=== PATIENT | female | born 1950 | race Caucasian/White ===

== ENCOUNTER → 2017-05-19 | Outpatient (CLI) | payer MEDICARE, BC ==
--- NOTE | 2017-05-20 08:28 | Diagnostic Imaging Report ---
Bilateral screening mammogram 2D views with tomosynthesis The current study was also evaluated with a Computer Aided Detection (CAD) system. INDICATION: Screening. No current complaints stated on the questionnaire. COMPARISON: 03/09/16 FINDINGS: The breasts are composed of scattered fibroglandular densities. There are scattered benign-appearing calcifications Allowing for technique and positional differences, no suspicious change is seen. IMPRESSION: No significant change. ACR BI-RADS Category 2: Benign findings. Result letter will be mailed to the patient. Note: At least 10% of breast cancer is not imaged by mammography. Dictated by: Dictated on workstation # [id number]
== END ==
LOC: RAD 09:51
PROVIDERS: ATTEND Nurse Practitioner Family
DX: Z12.31 Encounter for screening mammogram for malignant neoplasm of breast (principal)
CPT/HCPCS: 77067

== ENCOUNTER → 2018-08-14 | Outpatient (CLI) | payer MEDICARE, BC ==
--- NOTE | 2018-08-14 12:12 | Diagnostic Imaging Report ---
INDICATION: Routine screening. COMPARISON: Comparison is made with prior mammograms from 05/19/2017 and 03/09/2016. TECHNIQUE: 2D and 3D bilateral screening mammography was performed with computer-aided detection (CAD) system. FINDINGS: Both breasts are heterogeneously dense, limiting the sensitivity of mammography. Benign-appearing calcifications appear stable bilaterally. No dominant mass or malignant appearing microcalcifications are seen. The axillae are unremarkable. IMPRESSION: No mammographic features suspicious for malignancy are identified. ACR BI-RADS Category 2: Benign findings. Result letter will be mailed to the patient. Note: At least 10% of breast cancer is not imaged by mammography. Dictated by: Dictated on workstation # [id number]
== END ==
LOC: RAD 09:03
PROVIDERS: ATTEND Nurse Practitioner Family
DX: Z12.31 Encounter for screening mammogram for malignant neoplasm of breast (principal)
CPT/HCPCS: 77067

== ENCOUNTER → 2018-12-19 | Outpatient (CLI) | payer MEDICARE, BC ==
[2018-12-19 12:58] LABS: BASOPHILS % (AUTO) 0 % (0-10); EOSINOPHILS # (AUTO) 0.1 10^3/uL (0.0-0.3); EOSINOPHILS % (AUTO) 1 % (0-10); HEMATOCRIT 48 % (35-52); HEMOGLOBIN 16.2 G/DL (11.5-16.0); LYMPHOCYTES # (AUTO) 3.5 X 10^3 (1.0-4.0); LYMPHOCYTES % (AUTO) 35 % (12-44); MEAN CORPUSCULAR HEMOGLOBIN 28 PG (25-34); MEAN CORPUSCULAR HGB CONC 34 G/DL (32-36); MEAN CORPUSCULAR VOLUME 83 FL (80-99); MONOCYTES # (AUTO) 0.9 X 10^3 (0.0-1.0); MONOCYTES % (AUTO) 9 % (0-12); NEUTROPHILS # (AUTO) 5.5 X 10^3 (1.8-7.8); NEUTROPHILS % (AUTO) 55 % (42-75); PLATELET COUNT 296 10^3/uL (130-400)
[2018-12-19 13:16] LABS: ALBUMIN 4.4 GM/DL (3.2-4.5); BILIRUBIN,TOTAL 0.7 MG/DL (0.1-1.0); CALCIUM 10.4 MG/DL (8.5-10.1); CREATININE SERUM 1.04 MG/DL (0.60-1.30); TOTAL PROTEIN 7.7 GM/DL (6.4-8.2)
[2018-12-19 13:37] LABS: FREE T4 (FREE THYROXINE) 1.53 NG/DL (0.70-1.48)
== END ==
LOC: CARD 12:24
PROVIDERS: ATTEND Nurse Practitioner Family
DX: I48.91 Unspecified atrial fibrillation (principal)
CPT/HCPCS: 36415; 80053; 84439; 84443; 85025; 93005

== ENCOUNTER → 2019-01-02 | Outpatient (CLI) | payer MEDICARE, BC | LOC: CARD 10:27 | PROVIDERS: ATTEND Nurse Practitioner Family | DX: I48.91 Unspecified atrial fibrillation (principal) | CPT/HCPCS: 93306 ==

== ENCOUNTER → 2019-01-09 | Outpatient (CLI) | payer MEDICARE, BC | LOC: CARD 12:04 | PROVIDERS: ATTEND Internal Medicine Cardiovascular Disease | DX: I48.2 Chronic atrial fibrillation (principal); E78.2 Mixed hyperlipidemia; E78.1 Pure hyperglyceridemia; R00.2 Palpitations; R42 Dizziness and giddiness | CPT/HCPCS: 93225; 93226 ==

== ENCOUNTER → 2019-02-20 | Outpatient (CLI) | payer MEDICARE, BC ==
[2019-02-20 11:37] LABS: ALANINE AMINOTRANSFERASE 18 U/L (0-55); ALBUMIN 4.4 GM/DL (3.2-4.5); ALKALINE PHOSPHATASE 84 U/L (40-136); BILIRUBIN,TOTAL 0.4 MG/DL (0.1-1.0); BUN/CREATININE RATIO 22; CALCIUM 10.4 MG/DL (8.5-10.1); CARBON DIOXIDE 25 MMOL/L (21-32); CHLORIDE 105 MMOL/L (98-107); CREATINE KINASE 79 U/L (29-168); CREATININE SERUM 0.96 MG/DL (0.60-1.30); GFR ESTIMATED 57; GLUCOSE 93 MG/DL (70-105); POTASSIUM 4.3 MMOL/L (3.6-5.0); SODIUM 139 MMOL/L (135-145); TOTAL PROTEIN 7.4 GM/DL (6.4-8.2)
== END ==
LOC: CARD 10:57
PROVIDERS: ATTEND Nurse Practitioner Family
DX: M79.602 Pain in left arm (principal); I48.91 Unspecified atrial fibrillation
CPT/HCPCS: 36415; 80053; 82550; 84484; 93005

== ENCOUNTER → 2019-03-28 | Outpatient (CLI) | payer MEDICARE, BC ==
[~2019-03-28] VITALS: Ht 162.6 cm; Wt 84.8 kg
[~2019-03-28] MED LIST: CATHETER FLUSH 10 ML SYR IV PRN
--- NOTE | 2019-03-28 14:48 | STRESS TEST ---
DATE OF SERVICE: 03/28/2019 EXERCISE MYOVIEW STRESS TEST REPORT REFERRING PHYSICIAN: Dr. Bermudez. INDICATION: Atrial fibrillation. Baseline heart rate is 48. Baseline blood pressure is 139/69. Baseline EKG is sinus rhythm with no ischemic changes. In summary, the patient was injected with 10.58 mCi of technetium-99 Myoview and the resting images were obtained. Then, the patient started exercising with a baseline heart rate, blood pressure and EKG mentioned above. The patient was able to exercise for 4 minutes and 45 seconds on standard Kin protocol. With peak exercise level, EKG was showing nondiagnostic changes. During recovery, heart rate and blood pressure returned to baseline. With peak stress level, blood pressure was 188/95, the patient was injected with 30.2 mCi of technetium-99 Myoview. The resting and stress images were reviewed and compared in the short axis, horizontal long axis, and vertical long axis views. Review of the images showed breast attenuation affecting the quality of the images. There is decreased uptake involving the mid to apical anterior wall and true apex with mild reversibility. SSS is 6, SDS 6, TID value 1.04. On the gated images, the left ventricle appeared to be normal size with normal contractility. Calculated ejection fraction 71%. CONCLUSION: 1. Fair exercise tolerance, a total of 4 minutes 45 seconds on standard Kin protocol, total of 6.6 METS achieving 90% of maximum expected heart rate. 2. Nondiagnostic EKG changes with exercise returned to baseline during recovery. 3. Mild hypertensive response to exercise returned to baseline during recovery. 4. Breast attenuation with mild ischemia involving the mid to apical anterior wall and true apex. 5. Normal left ventricular size with normal contractility. Calculated ejection fraction is 71%. Job ID: [id number] DocumentID: [id number] Dictated Date: 03/28/2019 14:28:20 Sap Bw Bi Developer Date: 03/28/2019 14:47:45 Dictated By: BERNARDA RODRIGUEZ MD
== END ==
LOC: CARD 07:05
PROVIDERS: ATTEND Internal Medicine Cardiovascular Disease
DX: E78.1 Pure hyperglyceridemia (principal); E78.2 Mixed hyperlipidemia; R00.2 Palpitations
CPT/HCPCS: 78452; 93017

== ENCOUNTER 2019-04-04 06:40 | Day surgery (SDC) | payer MEDICARE, BC ==
[~2019-04-04] VITALS: Ht 162.6 cm; Wt 84.8 kg
[2019-04-04] VITALS (15 sets, daily range): BP systolic 110–140; BP diastolic 45–102
[2019-04-04] MEDS ORDERED: LIDOCAINE 1% INJ 20 ML 20 ML VIAL ONE (06:43)
[2019-04-04] MEDS ORDERED: NS IV 1000 ML 1,000 ML ONE (06:43)
[2019-04-04] MEDS ORDERED: HEParin (CATH LAB) 2,000 ML IV ONE (06:43)
[2019-04-04] MEDS ORDERED: NS IV 1000 ML 1,000 ML IV SCH ×2 (06:45)
--- OUTSIDE RECORDS SUMMARY | 2019-04-04 06:46 | XMS REPORT | CCD ---
Author Author Delmis Her Organization Ria Bermudez MD, [facility] Address [address] [place] [address] Phone Care Team Providers Care Burrito Maker Name Role Phone PP Unavailable CCM Unavailable Summary Purpose Interface Exchange Insurance Providers Payer name Policy type / Coverage type Covered green party ID Effective Begin Date Effective End Date WPS Medicare Part B Medicare Part B [id number] Unknown [facility] Medicare Part B [id number] Unknown Family history Son Diagnosis Age At Onset Hypertension Unknown Diabetes mellitus Type 2 Unknown Hyperlipidemia Unknown Brother Diagnosis Age At Onset Hypertension Unknown Hyperlipidemia Unknown Mother Diagnosis Age At Onset Heart Attack Unknown Hyperlipidemia Unknown Hypertension Unknown Depression Unknown Father Diagnosis Age At Onset Skin cancer Unknown Hyperlipidemia Unknown Arthritis Unknown Hypertension Unknown Social History Social History Element Codes Description Effective Dates Marital status Unknown 03/17/2015 Marital status Unknown 03/17/2015 Number of children Unknown 1 03/17/2015 Number of children Unknown 1 03/17/2015 Employment Unknown Retired 03/17/2015 Employment Unknown Retired 03/17/[address]: 114437925 Never smoker 03/17/[address]: 370473998 Never smoker 03/17/2015 Allergies, Adverse Reactions, Alerts Substance Reaction Codes Entered Date Inactivated Date Status * NO KNOWN FOOD ALLERGIES Unknown 03/17/2015 No Inactive Date Active ciprofloxacin RxNorm: 07434 03/17/2015 No Inactive Date Active Erythromycin RxNorm: 4053 03/17/2015 No Inactive Date Active Penicillin Unknown 03/17/2015 No Inactive Date Active [id number] REDUCTASE INHIBITORS myalgias, Unknown 03/16/2016 No Inactive Date Active SULFA(SULFONAMIDE ANTIBIOTICS) Unknown 03/17/2015 No Inactive Date Active Past Medical History Illness Codes Condition Status Onset Date Resolved Date Pain in left arm ICD-9: 729.5 ICD-10: M79.602 Active 02/20/2019 Unknown Essential (primary) hypertension ICD-9: 401.1 ICD-10: I10 Active 01/27/2017 Unknown Paroxysmal atrial fibrillation ICD-9: 427.31 ICD-10: I48.0 Active 12/19/2018 Unknown Type 2 diabetes mellitus without complications ICD-9: 250.00 ICD-10: E11.9 Active 03/16/2015 Unknown Hypothyroidism, unspecified ICD-9: 244.9 ICD-10: E03.9 Active 08/04/2017 Unknown Sciatica Unknown Active 10/26/2018 Unknown Lumbago with sciatica, right side ICD-9: 724.3 ICD-10: M54.41 Active 10/26/2018 Unknown Mixed hyperlipidemia ICD- 9: 272.2 ICD-10: E78.2 Active 07/14/2016 Unknown Type 2 diabetes mellitus with diabetic polyneuropathy ICD-9: 250.60 ICD-10: E11.42 Active 05/05/2017 Unknown Encounter for screening mammogram for malignant neoplasm of breast ICD-9: V76.12 ICD-10: Z12.31 Active 02/19/2016 Unknown Encounter for immunization ICD-9: V04.81 ICD-10: Z23 Active 07/14/2016 Unknown Vitamin D deficiency, unspecified ICD-9: 268.9 ICD-10: E55.9 Active 09/14/2015 Unknown Hypothryroidism Unknown Active 08/04/2017 Unknown Diverticulitis of large intestine without perforation or abscess without bleeding ICD-9: 562.11 ICD-10: K57.32 Active 07/19/2017 Unknown Allergic rhinitis due to pollen ICD-9: 477.0 ICD-10: J30.1 Active 01/27/2017 Unknown Essential (primary) hypertension ICD-9: 401.9 ICD-10: I10 Active 03/16/2015 Unknown Polyneuropathy, unspecified ICD-9: 356.9 ICD-10: G62.9 Active 03/16/2015 Unknown Diabetes Unknown Active 03/17/2015 Unknown Hypertension Unknown Active 03/17/2015 Unknown Diabetes mellitus type 2, controlled ICD-9: 250.00 Active 03/16/2015 Unknown ESSENTIAL HYPERTENSION ICD-9: 401.9 Active 03/16/2015 Unknown Peripheral neuropathy ICD- 9: 356.9 Active 03/16/2015 Unknown Problems Condition Codes Effective Dates Condition Status Pain in left arm ICD-9: 729.5 ICD-10: M79.602 02/20/2019 Active Essential (primary) hypertension ICD-9: 401.1 ICD-10: I10 01/27/2017 Active Paroxysmal atrial fibrillation ICD-9: 427.31 ICD-10: I48.0 12/19/2018 Active Type 2 diabetes mellitus without complications ICD-9: 250.00 ICD-10: E11.9 03/16/2015 Active Hypothyroidism, unspecified ICD-9: 244.9 ICD-10: E03.9 08/04/2017 Active Sciatica Unknown 10/26/2018 Active Lumbago with sciatica, right side ICD-9: 724.3 ICD-10: M54.41 10/26/2018 Active Mixed hyperlipidemia ICD- 9: 272.2 ICD-10: E78.2 07/14/2016 Active Type 2 diabetes mellitus with diabetic polyneuropathy ICD-9: 250.60 ICD-10: E11.42 05/05/2017 Active Encounter for screening mammogram for malignant neoplasm of breast ICD-9: V76.12 ICD-10: Z12.31 02/19/2016 Active Encounter for immunization ICD-9: V04.81 ICD-10: Z23 07/14/2016 Active Vitamin D deficiency, unspecified ICD-9: 268.9 ICD-10: E55.9 09/14/2015 Active Hypothryroidism Unknown 08/04/2017 Active Diverticulitis of large intestine without perforation or abscess without bleeding ICD-9: 562.11 ICD-10: K57.32 07/19/2017 Active Allergic rhinitis due to pollen ICD-9: 477.0 ICD-10: J30.1 01/27/2017 Active Essential (primary) hypertension ICD-9: 401.9 ICD-10: I10 03/16/2015 Active Polyneuropathy, unspecified ICD-9: 356.9 ICD-10: G62.9 03/16/2015 Active Diabetes Unknown 03/17/2015 Active Hypertension Unknown 03/17/2015 Active Diabetes mellitus type 2, controlled ICD-9: 250.00 03/16/2015 Active ESSENTIAL HYPERTENSION ICD-9: 401.9 03/16/2015 Active Peripheral neuropathy ICD- 9: 356.9 03/16/2015 Active Medications Medication Codes Instructions Start Date Stop Date Status Fill Instructions enalapril maleate 5 mg tablet RxNorm: 017899 TAKE ONE TABLET BY MOUTH DAILY 01/25/2019 01/19/2020 Active levothyroxine 100 mcg tablet RxNorm: 979320 TAKE ONE TABLET BY MOUTH EVERY OTHER DAY ALTERNATE WITH 112 MCG TABLET 01/16/2019 06/14/2019 Active Zetia 10 mg tablet RxNorm: 607417 1/2 Tablet(s) PO daily 12/19/2018 No Stop Date Active Cardizem CD 120 mg capsule,extended release RxNorm: 430767 1 Capsule(s) PO daily 12/19/2018 06/16/2019 Active Eliquis 5 mg tablet RxNorm: 9575003 1 Tablet(s) PO BID 12/19/2018 No Stop Date Active gabapentin 100 mg capsule RxNorm: 065012 TAKE ONE CAPSULE BY MOUTH EVERY NIGHT AT BEDTIME 12/11/2018 02/08/2019 Inactive levothyroxine 112 mcg tablet RxNorm: 040871 TAKE ONE TABLET BY MOUTH EVERY OTHER DAY ALTERNATE WITH 100MCG TABLET 12/07/2018 03/06/2019 Active Zetia 10 mg tablet RxNorm: 360788 1 Tablet(s) PO daily 10/26/2018 12/18/2018 Inactive Zetia 10 mg tablet RxNorm: 606124 1/2 Tablet(s) PO daily 07/20/2018 10/25/2018 Inactive indapamide 1.25 mg tablet RxNorm: 956080 Tablet(s) TAKE ONE TABLET BY MOUTH DAILY 07/19/2018 07/13/2019 Active levothyroxine 112 mcg tablet RxNorm: 571220 TAKE ONE TABLET BY MOUTH EVERY OTHER DAY ALTERNATE WITH 100MCG TABLET 07/19/2018 11/15/2018 Inactive gabapentin 100 mg capsule RxNorm: 767333 TAKE ONE CAPSULE BY MOUTH EVERY NIGHT AT BEDTIME 06/05/2018 09/02/2018 Inactive Zetia 10 mg tablet RxNorm: 365362 1 Tablet(s) PO daily 05/11/2018 07/19/2018 Inactive Zetia 10 mg tablet RxNorm: 175669 1 Tablet(s) PO daily 05/11/2018 05/10/2018 Inactive indapamide 1.25 mg tablet RxNorm: 883095 TAKE ONE TABLET BY MOUTH DAILY 04/05/2018 07/18/2018 Inactive enalapril maleate 5 mg tablet RxNorm: 593745 TAKE ONE TABLET BY MOUTH DAILY 04/05/2018 12/30/2018 Inactive levothyroxine 112 mcg tablet RxNorm: 194038 1 Tablet(s) PO every other day . ALTERNATE WITH 100 MCG TABLET. 01/24/2018 05/23/2018 Inactive Crestor 10 mg tablet RxNorm: 400530 1 Tablet(s) PO QHS 01/24/2018 04/13/2018 Inactive levothyroxine 100 mcg tablet RxNorm: 317876 Tablet(s) TAKE ONE TABLET BY MOUTH EVERY OTHER DAY. ALTERNATE WITH 112 MCG TABLET. 01/24/2018 05/23/2018 Inactive Crestor 10 mg tablet RxNorm: 721729 1 Tablet(s) PO QHS 01/24/2018 01/23/2018 Inactive gabapentin 100 mg capsule RxNorm: 228772 TAKE ONE CAPSULE BY MOUTH EVERY NIGHT AT BEDTIME 01/05/2018 06/04/2018 Inactive indapamide 1.25 mg tablet RxNorm: 471393 TAKE ONE TABLET BY MOUTH DAILY 01/05/2018 04/04/2018 Inactive Zocor 20 mg tablet RxNorm: 985369 TAKE ONE TABLET BY MOUTH DAILY 12/02/2017 01/11/2018 Inactive Phenergan-Codeine 6.25 mg-10 mg/5 mL syrup RxNorm: 852927 5-10 Milliliter(s) PO Q6 as needed cough 11/09/2017 No Stop Date Active Tamiflu 75 mg capsule RxNorm: 909437 1 Capsule(s) PO BID 11/09/2017 11/13/2017 Inactive Tamiflu 75 mg capsule RxNorm: 287910 1 Capsule(s) PO BID 11/09/2017 11/08/2017 Inactive levothyroxine 100 mcg tablet RxNorm: 447496 TAKE ONE TABLET BY MOUTH DAILY 10/28/2017 01/23/2018 Inactive indapamide 1.25 mg tablet RxNorm: 391634 TAKE ONE TABLET BY MOUTH DAILY 09/09/2017 01/04/2018 Inactive levothyroxine 100 mcg tablet RxNorm: 631821 1 Tablet(s) PO daily TAKE ONE TABLET BY MOUTH DAILY 08/04/2017 10/27/2017 Inactive Flagyl 500 mg tablet RxNorm: 991855 1 Tablet(s) PO TID 07/19/2017 07/28/2017 Inactive enalapril maleate 5 mg tablet RxNorm: 805444 TAKE ONE TABLET BY MOUTH DAILY 06/30/2017 12/26/2017 Inactive indapamide 1.25 mg tablet RxNorm: 010036 TAKE ONE TABLET BY MOUTH DAILY 05/26/2017 09/08/2017 Inactive Zocor 20 mg tablet RxNorm: 074795 TAKE ONE TABLET BY MOUTH DAILY 05/26/2017 10/22/2017 Inactive gabapentin 100 mg capsule RxNorm: 273858 1 Capsule(s) PO QHS 05/05/2017 09/01/2017 Inactive Kenalog 40 mg/mL suspension for injection RxNorm: 4377040 1 Milliliter(s) Inj 01/27/2017 01/27/2017 Inactive levothyroxine 112 mcg tablet RxNorm: 471371 TAKE ONE TABLET BY MOUTH DAILY 01/17/2017 08/03/2017 Inactive Zocor 20 mg tablet RxNorm: 949039 TAKE ONE TABLET BY MOUTH DAILY 11/08/2016 05/06/2017 Inactive indapamide 1.25 mg tablet RxNorm: 133727 TAKE ONE TABLET BY MOUTH DAILY 11/08/2016 05/06/2017 Inactive enalapril maleate 5 mg tablet RxNorm: 394161 TAKE ONE TABLET BY MOUTH DAILY 09/01/2016 05/28/2017 Inactive indapamide 1.25 mg tablet RxNorm: 627690 TAKE ONE TABLET BY MOUTH DAILY 08/02/2016 10/30/2016 Inactive Vitamin D2 50,000 unit capsule RxNorm: 533850 1 Capsule(s) PO QW 07/15/2016 01/17/2018 Inactive indapamide 1.25 mg tablet RxNorm: 942279 TAKE ONE TABLET BY MOUTH DAILY 04/29/2016 07/27/2016 Inactive Vitamin D2 50,000 unit capsule RxNorm: 319151 1 Capsule(s) PO QW 03/16/2016 07/14/2016 Inactive Zocor 20 mg tablet RxNorm: 672103 1 Tablet(s) PO daily 03/16/2016 10/11/2016 Inactive levothyroxine 112 mcg tablet RxNorm: 426900 TAKE ONE TABLET BY MOUTH DAILY 01/07/2016 12/31/2016 Inactive indapamide 1.25 mg tablet RxNorm: 883148 1 Tablet(s) PO daily 12/03/2015 03/31/2016 Inactive Vitamin D2 50,000 unit capsule RxNorm: 682593 1 Capsule(s) PO QW 09/26/2015 09/25/2015 Inactive Lipitor 10 mg tablet RxNorm: 114406 1 Tablet(s) PO daily 09/26/2015 03/15/2016 Inactive Vitamin D2 50,000 unit capsule RxNorm: 548215 1 Capsule(s) PO QW 09/26/2015 03/15/2016 Inactive enalapril maleate 5 mg tablet RxNorm: 955541 1 Tablet(s) PO daily 08/06/2015 07/30/2016 Inactive levothyroxine 112 mcg tablet RxNorm: 002633 1 Tablet(s) PO daily 04/04/2015 10/30/2015 Inactive Vitamin D3 2,000 unit capsule RxNorm: 125781 1 Capsule(s) PO daily No Start Date Active aspirin 500 mg tablet RxNorm: 773967 1 Tablet(s) PO daily No Start Date Active Co Q-10 oral RxNorm: 04506 oral No Start Date Active Phenergan-Codeine 6.25 mg-10 mg/5 mL syrup RxNorm: 653838 5-10 Milliliter(s) PO Q6 as needed cough No Start Date 11/08/2017 Inactive Lipitor 20 mg tablet RxNorm: 089032 1 Tablet(s) PO daily No Start Date 09/14/2015 Inactive indapamide 1.25 mg tablet RxNorm: 995002 1 Tablet(s) PO daily No Start Date 12/02/2015 Inactive enalapril maleate 5 mg tablet RxNorm: 489425 1 Tablet(s) PO daily No Start Date 08/05/2015 Inactive levothyroxine 112 mcg tablet RxNorm: 235931 1 Tablet(s) PO daily No Start Date 04/03/2015 Inactive Medication Administered Medication Codes Instructions Start Date Status Kenalog 40 mg/mL suspension for injection RxNorm: 0453803 1Milliliter 01/27/2017 No longer Active Immunizations Vaccine Codes Date Status Influenza CVX: 141 07/27/2018 completed Influenza CVX: 141 08/04/2017 completed Influenza CVX: 141 07/15/2016 completed Pneumococcal CVX: 133 07/25/2015 completed Zoster CVX: 121 07/25/2015 completed Assessments Condition Codes Effective Dates Pain in left arm ICD-10: M79.602 ICD-9: 729.5 02/20/2019 Type 2 diabetes mellitus without complications ICD-10: E11.9 ICD-9: 250.00 01/23/2019 Essential (primary) hypertension ICD-10: I10 ICD-9: 401.1 01/23/2019 Paroxysmal atrial fibrillation ICD-10: I48.0 ICD-9: 427.31 01/23/2019 Hypothyroidism, unspecified ICD-10: E03.9 ICD-9: 244.9 12/19/2018 Lumbago with sciatica, right side ICD-10: M54.41 ICD-9: 724.3 10/26/2018 Type 2 diabetes mellitus with diabetic polyneuropathy ICD-10: E11.42 ICD-9: 250.60 10/26/2018 Mixed hyperlipidemia ICD-10: E78.2 ICD-9: 272.2 10/26/2018 Encounter for screening mammogram for malignant neoplasm of breast ICD-10: Z12.31 ICD-9: V76.12 08/15/2018 Encounter for immunization ICD-10: Z23 ICD-9: V04.81 07/27/2018 Vitamin D deficiency, unspecified ICD-10: E55.9 ICD-9: 268.9 07/20/2018 Diverticulitis of large intestine without perforation or abscess without bleeding ICD-10: K57.32 ICD-9: 562.11 07/19/2017 Allergic rhinitis due to pollen ICD-10: J30.1 ICD-9: 477.0 01/27/2017 Essential (primary) hypertension ICD-10: I10 ICD-9: 401.9 07/15/2016 Polyneuropathy, unspecified ICD-10: G62.9 ICD-9: 356.9 03/16/2016 ESSENTIAL HYPERTENSION ICD-9: 401.9 03/17/2015 Peripheral neuropathy ICD-9: 356.9 03/17/2015 Diabetes mellitus type 2, controlled ICD-9: 250.00 03/17/2015 Reason For Visit Reason For Visit Effective Dates Notes shoulder pain 02/20/2019 dizziness 01/23/2019 dizziness 12/22/2018 dizziness 12/19/2018 diabetes mellitus 10/26/2018 vaccination against influenza 07/27/2018 diabetes mellitus 07/20/2018 diabetes mellitus 04/14/2018 diabetes mellitus 02/06/2018 diabetes mellitus 01/12/2018 diabetes mellitus 08/04/2017 abdominal pain 07/19/2017 diabetes mellitus 05/05/2017 hypertension 01/27/2017 hypertension 07/15/2016 hypertension 03/16/2016 fatigue 09/15/2015 diabetes mellitus 03/17/2015 Results Observation Observation Code Item Item Code Result Date Tsh Ord6 TSH (3rd IS) 2.55 uIU/mL 10/27/2018 Free T4 Kgf792 FREE T4 1.07 ng/dL 10/27/2018 Comp Metabolic Rbp447 NA 138 mEq/L 10/26/2018 Comp Metabolic Myq390 K 4.3 mEq/L 10/26/2018 Comp Metabolic Uoj971 CL 102 mEq/L 10/26/2018 Comp Metabolic Dmy132 CO2 26.0 mEq/L 10/26/2018 Comp Metabolic Lrw823 ANION GAP 14 10/26/2018 Comp Metabolic Ldk341 GLUCOSE 88 mg/dL 10/26/2018 Comp Metabolic Mcw608 Creat 0.9 mg/dL 10/26/2018 Comp Metabolic Tys207 eGFR 63 ml/min/1.73m2 10/26/2018 Comp Metabolic Lfm089 BUN 25 mg/dL 10/26/2018 Comp Metabolic Awp998 B/C Ratio 26.6 Ratio 10/26/2018 Comp Metabolic Vwc957 CALCIUM 10.1 mg/dL 10/26/2018 Comp Metabolic Crt931 ALK PHOS 77 U/L 10/26/2018 Comp Metabolic Der345 AST(SGOT) 16 U/L 10/26/2018 Comp Metabolic Igv670 ALT(SGPT) 16 U/L 10/26/2018 Comp Metabolic Nfx589 BILI T 0.5 mg/dL 10/26/2018 Comp Metabolic Jnm706 ALBUMIN 4.3 g/dL 10/26/2018 Comp Metabolic Nar145 TPRO 6.8 g/dL 10/26/2018 Comp Metabolic Pdl635 GLOB 2.5 g/dL 10/26/2018 Comp Metabolic Oon145 A/G Ratio 1.7 Ratio 10/26/2018 Comp Metabolic Nqe401 Osmo 279 mOsmo 10/26/2018 %Hba1C Akj113 % HbA1c 52845- 6 5.2 % 10/26/2018 %Hba1C Fwk077 Gluc Ave 103 mg/dL 10/26/2018 Cbc With Differential Ord2 WBC 6.47 K/ul 10/26/2018 Cbc With Differential Ord2 RBC 4.84 M/ul 10/26/2018 Cbc With Differential Ord2 HGB 14.1 g/dl 10/26/2018 Cbc With Differential Ord2 HCT 42.0 % 10/26/2018 Cbc With Differential Ord2 Neut% 58.4 % 10/26/2018 Cbc With Differential Ord2 MCV 86.8 fl 10/26/2018 Cbc With Differential Ord2 Lymph% 30.0 % 10/26/2018 Cbc With Differential Ord2 MCH 29.1 pg 10/26/2018 Cbc With Differential Ord2 Smith% 9.6 % 10/26/2018 Cbc With Differential Ord2 MCHC 33.6 pg 10/26/2018 Cbc With Differential Ord2 Eos% 1.7 % 10/26/2018 Cbc With Differential Ord2 PLT 212 K/ul 10/26/2018 Cbc With Differential Ord2 Baso% 0.3 % 10/26/2018 Cbc With Differential Ord2 RDW 14.4 % 10/26/2018 Cbc With Differential Ord2 Neut ABS# 3.78 K/ul 10/26/2018 Cbc With Differential Ord2 Lymph ABS# 1.94 K/ul 10/26/2018 Cbc With Differential Ord2 Smith ABS# 0.6 K/ul 10/26/2018 Cbc With Differential Ord2 Eos ABS# 0.1 K/ul 10/26/2018 Cbc With Differential Ord2 Baso ABS# 0.0 K/ul 10/26/2018 Lipid Ord30 CHOL 238 mg/dL 10/26/2018 Lipid Ord30 HDL 42.0 mg/dl 10/26/2018 Lipid Ord30 TRIG 270 mg/dL 10/26/2018 Lipid Ord30 LDL 142 mg/dL 10/26/2018 Lipid Ord30 C/HDL 5.7 Ratio 10/26/2018 %Hba1C Aru893 % HbA1c 22826- 6 5.3 % 07/20/2018 %Hba1C Gsz831 Gluc Ave 105 mg/dL 07/20/2018 Comp Metabolic Byo824 NA 139 mEq/L 07/20/2018 Comp Metabolic Tnr114 K 5.1 mEq/L 07/20/2018 Comp Metabolic Cgs665 CL 106 mEq/L 07/20/2018 Comp Metabolic Pgk596 CO2 19.0 mEq/L 07/20/2018 Comp Metabolic Lyv220 ANION GAP 19 07/20/2018 Comp Metabolic Rra675 GLUCOSE 88 mg/dL 07/20/2018 Comp Metabolic Pam260 Creat 0.8 mg/dL 07/20/2018 Comp Metabolic Bwl180 eGFR 77 ml/min/1.73m2 07/20/2018 Comp Metabolic Rft465 BUN 25 mg/dL 07/20/2018 Comp Metabolic Gen914 B/C Ratio 31.6 Ratio 07/20/2018 Comp Metabolic Zwi734 CALCIUM 10.0 mg/dL 07/20/2018 Comp Metabolic Gmm177 ALK PHOS 81 U/L 07/20/2018 Comp Metabolic Wvo250 AST(SGOT) 26 U/L 07/20/2018 Comp Metabolic Ptr317 ALT(SGPT) 16 U/L 07/20/2018 Comp Metabolic Qfw051 BILI T 0.5 mg/dL 07/20/2018 Comp Metabolic Gca500 ALBUMIN 4.5 g/dL 07/20/2018 Comp Metabolic Mhe198 TPRO 7.2 g/dL 07/20/2018 Comp Metabolic Kar277 GLOB 2.7 g/dL 07/20/2018 Comp Metabolic Yha332 A/G Ratio 1.6 Ratio 07/20/2018 Comp Metabolic Iyw806 Osmo 281 mOsmo 07/20/2018 Free T4 Vqq123 FREE T4 1.00 ng/dL 07/20/2018 Tsh Ord6 TSH (3rd IS) 2.05 uIU/mL 07/20/2018 Vitamin D 25 Oh Gad5117 VITAMIN D, 25 HYDROXY 57.07 ng/mL 07/20/2018 Lipid Ord30 CHOL 242 mg/dL 07/20/2018 Lipid Ord30 HDL 43.0 mg/dl 07/20/2018 Lipid Ord30 TRIG 314 mg/dL 07/20/2018 Lipid Ord30 LDL 136 mg/dL 07/20/2018 Lipid Ord30 C/HDL 5.6 Ratio 07/20/2018 Free T4 Dqy309 FREE T4 1.24 ng/dL 04/14/2018 Tsh Ord6 TSH (3rd IS) 0.65 uIU/mL 04/14/2018 %Hba1C Eid678 % HbA1c 60199- 6 5.1 % 01/12/2018 %Hba1C Bmx097 Gluc Ave 100 mg/dL 01/12/2018 Free T4 Zmq110 FREE T4 0.97 ng/dL 01/12/2018 Lipid Ord30 CHOL 312 mg/dL 01/12/2018 Lipid Ord30 HDL 48.0 mg/dl 01/12/2018 Lipid Ord30 TRIG 371 mg/dL 01/12/2018 Lipid Ord30 LDL Unable to calculate Due to elevated triglycerides mg/dL 01/12/2018 Lipid Ord30 C/HDL 6.5 Ratio 01/12/2018 Tsh Ord6 TSH (3rd IS) 6.56 uIU/mL 01/12/2018 Cbc With Differential Ord2 WBC 8.14 K/ul 01/12/2018 Cbc With Differential Ord2 RBC 4.75 M/ul 01/12/2018 Cbc With Differential Ord2 HGB 14.1 g/dl 01/12/2018 Cbc With Differential Ord2 HCT 42.4 % 01/12/2018 Cbc With Differential Ord2 Neut% 58.0 % 01/12/2018 Cbc With Differential Ord2 MCV 89.3 fl 01/12/2018 Cbc With Differential Ord2 Lymph% 29.5 % 01/12/2018 Cbc With Differential Ord2 MCH 29.7 pg 01/12/2018 Cbc With Differential Ord2 Smith% 10.3 % 01/12/2018 Cbc With Differential Ord2 MCHC 33.3 pg 01/12/2018 Cbc With Differential Ord2 Eos% 1.8 % 01/12/2018 Cbc With Differential Ord2 PLT 205 K/ul 01/12/2018 Cbc With Differential Ord2 Baso% 0.4 % 01/12/2018 Cbc With Differential Ord2 RDW 14.7 % 01/12/2018 Cbc With Differential Ord2 Neut ABS# 4.72 K/ul 01/12/2018 Cbc With Differential Ord2 Lymph ABS# 2.40 K/ul 01/12/2018 Cbc With Differential Ord2 Smith ABS# 0.8 K/ul 01/12/2018 Cbc With Differential Ord2 Eos ABS# 0.2 K/ul 01/12/2018 Cbc With Differential Ord2 Baso ABS# 0.0 K/ul 01/12/2018 Comp Metabolic Nar666 NA 138 mEq/L 01/12/2018 Comp Metabolic Uka335 K 4.1 mEq/L 01/12/2018 Comp Metabolic Sxi988 CL 100 mEq/L 01/12/2018 Comp Metabolic Clj425 CO2 28.0 mEq/L 01/12/2018 Comp Metabolic Rgc473 ANION GAP 14 01/12/2018 Comp Metabolic Uof942 GLUCOSE 84 mg/dL 01/12/2018 Comp Metabolic Fbh914 Creat 0.8 mg/dL 01/12/2018 Comp Metabolic Ecj897 eGFR 78 ml/min/1.73m2 01/12/2018 Comp Metabolic Ycn428 BUN 20 mg/dL 01/12/2018 Comp Metabolic Qpw088 B/C Ratio 25.6 Ratio 01/12/2018 Comp Metabolic Krn224 CALCIUM 9.6 mg/dL 01/12/2018 Comp Metabolic Djj910 ALK PHOS 76 U/L 01/12/2018 Comp Metabolic Hdz950 AST(SGOT) 16 U/L 01/12/2018 Comp Metabolic Ftm185 ALT(SGPT) 16 U/L 01/12/2018 Comp Metabolic Uqz677 BILI T 0.4 mg/dL 01/12/2018 Comp Metabolic Gud029 ALBUMIN 4.1 g/dL 01/12/2018 Comp Metabolic Oor546 TPRO 6.7 g/dL 01/12/2018 Comp Metabolic Nqd963 GLOB 2.6 g/dL 01/12/2018 Comp Metabolic Pog217 A/G Ratio 1.6 Ratio 01/12/2018 Comp Metabolic Qng824 Osmo 277 mOsmo 01/12/2018 Free T4 Ltz049 FREE T4 1.40 ng/dL 08/05/2017 %Hba1C Cqj750 % HbA1c 09178- 6 5.0 % 08/05/2017 %Hba1C Usb006 Gluc Ave 97 mg/dL 08/05/2017 Cbc With Differential Ord2 WBC 7.11 K/ul 08/03/2017 Cbc With Differential Ord2 RBC 4.61 M/ul 08/03/2017 Cbc With Differential Ord2 HGB 13.6 g/dl 08/03/2017 Cbc With Differential Ord2 HCT 40.4 % 08/03/2017 Cbc With Differential Ord2 Neut% 59.2 % 08/03/2017 Cbc With Differential Ord2 MCV 87.6 fl 08/03/2017 Cbc With Differential Ord2 Lymph% 29.5 % 08/03/2017 Cbc With Differential Ord2 MCH 29.5 pg 08/03/2017 Cbc With Differential Ord2 Smith% 9.3 % 08/03/2017 Cbc With Differential Ord2 MCHC 33.7 pg 08/03/2017 Cbc With Differential Ord2 Eos% 1.7 % 08/03/2017 Cbc With Differential Ord2 PLT 237 K/ul 08/03/2017 Cbc With Differential Ord2 Baso% 0.3 % 08/03/2017 Cbc With Differential Ord2 RDW 14.1 % 08/03/2017 Cbc With Differential Ord2 Neut ABS# 4.21 K/ul 08/03/2017 Cbc With Differential Ord2 Lymph ABS# 2.10 K/ul 08/03/2017 Cbc With Differential Ord2 Smith ABS# 0.7 K/ul 08/03/2017 Cbc With Differential Ord2 Eos ABS# 0.1 K/ul 08/03/2017 Cbc With Differential Ord2 Baso ABS# 0.0 K/ul 08/03/2017 Vitamin D 25 Oh Nwi2629 VITAMIN D, 25 HYDROXY 52.73 ng/mL 08/03/2017 Lipid Ord30 CHOL 215 mg/dL 08/03/2017 Lipid Ord30 HDL 43.0 mg/dl 08/03/2017 Lipid Ord30 TRIG 278 mg/dL 08/03/2017 Lipid Ord30 LDL 116 mg/dL 08/03/2017 Lipid Ord30 C/HDL 5.0 Ratio 08/03/2017 Tsh Ord6 hTSH II 0.09 uIU/mL 08/03/2017 Comp Metabolic Esf228 NA 137 mEq/L 08/03/2017 Comp Metabolic Exr075 K 4.3 mEq/L 08/03/2017 Comp Metabolic Dbv661 CL 102 mEq/L 08/03/2017 Comp Metabolic Umr545 CO2 24.0 mEq/L 08/03/2017 Comp Metabolic Eqj891 ANION GAP 15 08/03/2017 Comp Metabolic Yns475 GLUCOSE 80 mg/dL 08/03/2017 Comp Metabolic Gya152 Creat 0.9 mg/dL 08/03/2017 Comp Metabolic Vzm211 eGFR 68 ml/min/1.73m2 08/03/2017 Comp Metabolic Ntg357 BUN 18 mg/dL 08/03/2017 Comp Metabolic Atx799 B/C Ratio 20.5 Ratio 08/03/2017 Comp Metabolic Zkj979 CALCIUM 9.7 mg/dL 08/03/2017 Comp Metabolic Hsy185 ALK PHOS 68 U/L 08/03/2017 Comp Metabolic Knf749 AST(SGOT) 14 U/L 08/03/2017 Comp Metabolic Qph438 ALT(SGPT) 14 U/L 08/03/2017 Comp Metabolic Xzg152 BILI T 0.6 mg/dL 08/03/2017 Comp Metabolic Cbh495 ALBUMIN 4.0 g/dL 08/03/2017 Comp Metabolic Cxf684 TPRO 6.4 g/dL 08/03/2017 Comp Metabolic Nyz959 GLOB 2.4 g/dL 08/03/2017 Comp Metabolic Tma187 A/G Ratio 1.7 Ratio 08/03/2017 Comp Metabolic Piu183 Osmo 275 mOsmo 08/03/2017 %Hba1C Pfv690 % HbA1c 92519- 6 5.1 % 01/06/2017 %Hba1C Dfj675 Gluc Ave 100 mg/dL 01/06/2017 Lipid Ord30 CHOL 223 mg/dL 01/06/2017 Lipid Ord30 HDL 44.0 mg/dl 01/06/2017 Lipid Ord30 TRIG 292 mg/dL 01/06/2017 Lipid Ord30 LDL 121 mg/dL 01/06/2017 Lipid Ord30 C/HDL 5.1 Ratio 01/06/2017 Tsh Ord6 hTSH II 0.99 uIU/mL 01/06/2017 Free T4 Aae809 FREE T4 0.96 ng/dL 01/06/2017 Cbc With Differential Ord2 WBC 6.32 K/ul 01/06/2017 Cbc With Differential Ord2 RBC 4.63 M/ul 01/06/2017 Cbc With Differential Ord2 HGB 13.7 g/dl 01/06/2017 Cbc With Differential Ord2 HCT 41.1 % 01/06/2017 Cbc With Differential Ord2 Neut% 58.8 % 01/06/2017 Cbc With Differential Ord2 MCV 88.8 fl 01/06/2017 Cbc With Differential Ord2 Lymph% 29.3 % 01/06/2017 Cbc With Differential Ord2 MCH 29.6 pg 01/06/2017 Cbc With Differential Ord2 Smith% 9.2 % 01/06/2017 Cbc With Differential Ord2 MCHC 33.3 pg 01/06/2017 Cbc With Differential Ord2 Eos% 2.2 % 01/06/2017 Cbc With Differential Ord2 PLT 215 K/ul 01/06/2017 Cbc With Differential Ord2 Baso% 0.5 % 01/06/2017 Cbc With Differential Ord2 RDW 14.6 % 01/06/2017 Cbc With Differential Ord2 Neut ABS# 3.72 K/ul 01/06/2017 Cbc With Differential Ord2 Lymph ABS# 1.85 K/ul 01/06/2017 Cbc With Differential Ord2 Smith ABS# 0.6 K/ul 01/06/2017 Cbc With Differential Ord2 Eos ABS# 0.1 K/ul 01/06/2017 Cbc With Differential Ord2 Baso ABS# 0.0 K/ul 01/06/2017 Vitamin D 25 Oh [id number] VITAMIN D, 25 HYDROXY 35.10 ng/mL 01/06/2017 Comp Metabolic Diu894 NA 140 mEq/L 01/06/2017 Comp Metabolic Swf351 K 4.3 mEq/L 01/06/2017 Comp Metabolic Lhl236 CL 103 mEq/L 01/06/2017 Comp Metabolic Qhf952 CO2 29.0 mEq/L 01/06/2017 Comp Metabolic Ofs163 ANION GAP 12 01/06/2017 Comp Metabolic Auq880 GLUCOSE 86 mg/dL 01/06/2017 Comp Metabolic Pot176 Creat 0.8 mg/dL 01/06/2017 Comp Metabolic Ktx925 eGFR 82 ml/min/1.73m2 01/06/2017 Comp Metabolic Pdr334 BUN 19 mg/dL 01/06/2017 Comp Metabolic Kma009 B/C Ratio 25.3 Ratio 01/06/2017 Comp Metabolic Ngv584 CALCIUM 9.6 mg/dL 01/06/2017 Comp Metabolic Wgc383 ALK PHOS 77 U/L 01/06/2017 Comp Metabolic Yev940 AST(SGOT) 16 U/L 01/06/2017 Comp Metabolic Ioz588 ALT(SGPT) 18 U/L 01/06/2017 Comp Metabolic Ayb076 BILI T 0.4 mg/dL 01/06/2017 Comp Metabolic Pyn485 ALBUMIN 4.1 g/dL 01/06/2017 Comp Metabolic Phx590 TPRO 6.7 g/dL 01/06/2017 Comp Metabolic Pel645 GLOB 2.6 g/dL 01/06/2017 Comp Metabolic Ngk832 A/G Ratio 1.6 Ratio 01/06/2017 Comp Metabolic Ngw846 Osmo 281 mOsmo 01/06/2017 Vitamin D 25 Oh Bob8458 VITAMIN D, 25 HYDROXY 42.77 ng/mL 07/09/2016 Free T4 Rwl467 FREE T4 1.23 ng/dL 07/08/2016 Comp Metabolic Dsz733 NA 136 mEq/L 07/08/2016 Comp Metabolic Wxo079 K 4.1 mEq/L 07/08/2016 Comp Metabolic Zye594 CL 103 mEq/L 07/08/2016 Comp Metabolic Ush682 CO2 26.0 mEq/L 07/08/2016 Comp Metabolic Yuu303 ANION GAP 11 07/08/2016 Comp Metabolic Pwl360 GLUCOSE 83 mg/dL 07/08/2016 Comp Metabolic Ocw740 Creat 0.8 mg/dL 07/08/2016 Comp Metabolic Xyz121 eGFR 80 ml/min/1.73m2 07/08/2016 Comp Metabolic Ppp851 BUN 22 mg/dL 07/08/2016 Comp Metabolic Vzw286 B/C Ratio 28.9 Ratio 07/08/2016 Comp Metabolic Bja110 CALCIUM 9.8 mg/dL 07/08/2016 Comp Metabolic Cek437 ALK PHOS 75 U/L 07/08/2016 Comp Metabolic Pwg541 AST(SGOT) 14 U/L 07/08/2016 Comp Metabolic Esl827 ALT(SGPT) 15 U/L 07/08/2016 Comp Metabolic Phv713 BILI T 0.4 mg/dL 07/08/2016 Comp Metabolic Cpn235 ALBUMIN 4.1 g/dL 07/08/2016 Comp Metabolic Pez989 TPRO 6.6 g/dL 07/08/2016 Comp Metabolic Itt170 GLOB 2.5 g/dL 07/08/2016 Comp Metabolic Kjs476 A/G Ratio 1.7 Ratio 07/08/2016 Comp Metabolic Zyx752 Osmo 274 mOsmo 07/08/2016 %Hba1C Ruz929 % HbA1c 34053- 6 5.4 % 07/08/2016 %Hba1C Ukv129 Gluc Ave 108 mg/dL 07/08/2016 Cbc With Differential Ord2 WBC 6.90 K/ul 07/08/2016 Cbc With Differential Ord2 RBC 4.60 M/ul 07/08/2016 Cbc With Differential Ord2 HGB 13.7 g/dl 07/08/2016 Cbc With Differential Ord2 HCT 40.5 % 07/08/2016 Cbc With Differential Ord2 Neut% 60.0 % 07/08/2016 Cbc With Differential Ord2 MCV 88.0 fl 07/08/2016 Cbc With Differential Ord2 Lymph% 27.4 % 07/08/2016 Cbc With Differential Ord2 MCH 29.8 pg 07/08/2016 Cbc With Differential Ord2 Smith% 10.1 % 07/08/2016 Cbc With Differential Ord2 MCHC 33.8 pg 07/08/2016 Cbc With Differential Ord2 Eos% 2.2 % 07/08/2016 Cbc With Differential Ord2 PLT 193 K/ul 07/08/2016 Cbc With Differential Ord2 Baso% 0.3 % 07/08/2016 Cbc With Differential Ord2 RDW 14.4 % 07/08/2016 Cbc With Differential Ord2 Neut ABS# 4.14 K/ul 07/08/2016 Cbc With Differential Ord2 Lymph ABS# 1.89 K/ul 07/08/2016 Cbc With Differential Ord2 Smith ABS# 0.7 K/ul 07/08/2016 Cbc With Differential Ord2 Eos ABS# 0.2 K/ul 07/08/2016 Cbc With Differential Ord2 Baso ABS# 0.0 K/ul 07/08/2016 Tsh Ord6 hTSH II 0.21 uIU/mL 07/08/2016 Lipid Ord30 CHOL 210 mg/dL 07/08/2016 Lipid Ord30 HDL 41.0 mg/dl 07/08/2016 Lipid Ord30 TRIG 257 mg/dL 07/08/2016 Lipid Ord30 LDL 118 mg/dL 07/08/2016 Lipid Ord30 C/HDL 5.1 Ratio 07/08/2016 Vitamin D 25 Oh Rnn2023 VITAMIN D, 25 HYDROXY 34.38 ng/mL 03/10/2016 %Hba1C Fwz013 % HbA1c 95026- 6 5.3 % 03/09/2016 %Hba1C Mrq773 Gluc Ave 105 mg/dL 03/09/2016 Comp Metabolic Vaf827 NA 137 mEq/L 03/09/2016 Comp Metabolic Iua021 K 4.5 mEq/L 03/09/2016 Comp Metabolic Tzz649 CL 104 mEq/L 03/09/2016 Comp Metabolic Ell877 CO2 27.0 mEq/L 03/09/2016 Comp Metabolic Pcs958 ANION GAP 11 03/09/2016 Comp Metabolic Aas330 GLUCOSE 86 mg/dL 03/09/2016 Comp Metabolic Ufx233 Creat 0.8 mg/dL 03/09/2016 Comp Metabolic Ugs597 eGFR 81 ml/min/1.73m2 03/09/2016 Comp Metabolic Vpk559 BUN 23 mg/dL 03/09/2016 Comp Metabolic Zxc324 B/C Ratio 30.3 Ratio 03/09/2016 Comp Metabolic Hjg642 CALCIUM 9.4 mg/dL 03/09/2016 Comp Metabolic Vnb713 ALK PHOS 69 U/L 03/09/2016 Comp Metabolic Rxi056 AST(SGOT) 14 U/L 03/09/2016 Comp Metabolic Twg193 ALT(SGPT) 14 U/L 03/09/2016 Comp Metabolic Wpp929 BILI T 0.4 mg/dL 03/09/2016 Comp Metabolic Jke260 ALBUMIN 4.1 g/dL 03/09/2016 Comp Metabolic Pmt696 TPRO 6.6 g/dL 03/09/2016 Comp Metabolic Uvu631 GLOB 2.5 g/dL 03/09/2016 Comp Metabolic Eee239 A/G Ratio 1.6 Ratio 03/09/2016 Comp Metabolic Vmw689 Osmo 277 mOsmo 03/09/2016 Tsh Ord6 hTSH II 0.38 uIU/mL 03/09/2016 Cbc With Differential Ord2 WBC 8.22 K/ul 03/09/2016 Cbc With Differential Ord2 RBC 4.56 M/ul 03/09/2016 Cbc With Differential Ord2 HGB 13.2 g/dl 03/09/2016 Cbc With Differential Ord2 HCT 39.2 % 03/09/2016 Cbc With Differential Ord2 Neut% 60.7 % 03/09/2016 Cbc With Differential Ord2 MCV 86.0 fl 03/09/2016 Cbc With Differential Ord2 Lymph% 26.3 % 03/09/2016 Cbc With Differential Ord2 MCH 28.9 pg 03/09/2016 Cbc With Differential Ord2 Smith% 11.1 % 03/09/2016 Cbc With Differential Ord2 MCHC 33.7 pg 03/09/2016 Cbc With Differential Ord2 Eos% 1.7 % 03/09/2016 Cbc With Differential Ord2 PLT 204 K/ul 03/09/2016 Cbc With Differential Ord2 Baso% 0.2 % 03/09/2016 Cbc With Differential Ord2 RDW 14.5 % 03/09/2016 Cbc With Differential Ord2 Neut ABS# 4.99 K/ul 03/09/2016 Cbc With Differential Ord2 Lymph ABS# 2.16 K/ul 03/09/2016 Cbc With Differential Ord2 Smith ABS# 0.9 K/ul 03/09/2016 Cbc With Differential Ord2 Eos ABS# 0.1 K/ul 03/09/2016 Cbc With Differential Ord2 Baso ABS# 0.0 K/ul 03/09/2016 Lipid Ord30 CHOL 283 mg/dL 03/09/2016 Lipid Ord30 HDL 40.0 mg/dl 03/09/2016 Lipid Ord30 TRIG 271 mg/dL 03/09/2016 Lipid Ord30 LDL 189 mg/dL 03/09/2016 Lipid Ord30 C/HDL 7.1 Ratio 03/09/2016 Comp Metabolic Hth824 NA 137 mEq/L 09/15/2015 Comp Metabolic Cbh748 K 4.4 mEq/L 09/15/2015 Comp Metabolic Svt598 CL 101 mEq/L 09/15/2015 Comp Metabolic Uwn484 CO2 28.0 mEq/L 09/15/2015 Comp Metabolic Zcd878 ANION GAP 12 09/15/2015 Comp Metabolic Rdp292 GLUCOSE 89 mg/dL 09/15/2015 Comp Metabolic Vmi446 Creat 0.8 mg/dL 09/15/2015 Comp Metabolic Miq215 eGFR 73 ml/min/1.73m2 09/15/2015 Comp Metabolic Njf068 BUN 20 mg/dL 09/15/2015 Comp Metabolic Wur090 B/C Ratio 24.1 Ratio 09/15/2015 Comp Metabolic Uav168 CALCIUM 10.1 mg/dL 09/15/2015 Comp Metabolic Gpb761 ALK PHOS 72 U/L 09/15/2015 Comp Metabolic Nzt270 AST(SGOT) 16 U/L 09/15/2015 Comp Metabolic Nvb644 ALT(SGPT) 15 U/L 09/15/2015 Comp Metabolic Snj860 BILI T 0.5 mg/dL 09/15/2015 Comp Metabolic Uny137 ALBUMIN 4.4 g/dL 09/15/2015 Comp Metabolic Dyj205 TPRO 7.0 g/dL 09/15/2015 Comp Metabolic Loy791 GLOB 2.6 g/dL 09/15/2015 Comp Metabolic Cup312 A/G Ratio 1.7 Ratio 09/15/2015 Comp Metabolic Skq742 Osmo 276 mOsmo 09/15/2015 Tsh Ord6 hTSH II 2.99 uIU/mL 09/15/2015 Vitamin D 25 Oh Fjx5268 VITAMIN D, 25 HYDROXY 30.19 ng/mL 09/15/2015 Cbc With Differential Ord2 WBC 6.2 K/uL 09/15/2015 Cbc With Differential Ord2 LYM 2.2 K/uL 09/15/2015 Cbc With Differential Ord2 LYM% 34.9 % 09/15/2015 Cbc With Differential Ord2 NEUT/GRAN 3.6 K/uL 09/15/2015 Cbc With Differential Ord2 NEUT/GRAN % 58.3 % 09/15/2015 Cbc With Differential Ord2 MID 0.4 K/uL 09/15/2015 Cbc With Differential Ord2 MID% 6.8 % 09/15/2015 Cbc With Differential Ord2 RBC 4.80 M/uL 09/15/2015 Cbc With Differential Ord2 HGB 13.8 g/dL 09/15/2015 Cbc With Differential Ord2 HCT 43.3 % 09/15/2015 Cbc With Differential Ord2 MCV 90 fL 09/15/2015 Cbc With Differential Ord2 MCH 29 pg 09/15/2015 Cbc With Differential Ord2 MCHC 32 g/dL 09/15/2015 Cbc With Differential Ord2 PLT 205 K/uL 09/15/2015 Cbc With Differential Ord2 RDW 15.0 % 09/15/2015 Lipid Ord30 CHOL 294 mg/dL 09/15/2015 Lipid Ord30 HDL 42.0 mg/dl 09/15/2015 Lipid Ord30 TRIG 296 mg/dL 09/15/2015 Lipid Ord30 LDL 193 mg/dL 09/15/2015 Lipid Ord30 C/HDL 7.0 Ratio 09/15/2015 %Hba1C Hvj728 % HbA1c 19730- 6 5.2 % 09/15/2015 %Hba1C Spw154 Gluc Ave 103 mg/dL 09/15/2015 Review of Systems System Result Effective Dates Cardiovascular No chest pain/pressure 02/20/2019 Cardiovascular No dyspnea 02/20/2019 Cardiovascular No edema 02/20/2019 Cardiovascular fatigue 02/20/2019 Musculoskeletal myalgias 02/20/2019 Constitutional No recent illness 02/20/2019 Constitutional No anorexia 02/20/2019 Constitutional No night sweats 02/20/2019 Constitutional No chills 02/20/2019 Constitutional No diaphoresis 02/20/2019 Constitutional fatigue 02/20/2019 Constitutional No fever 02/20/2019 Constitutional No insomnia 02/20/2019 Constitutional No malaise 02/20/2019 Eyes No eye discharge 02/20/2019 Eyes No eye erythema 02/20/2019 Ears/Nose/Throat/Neck No dizziness 02/20/2019 Ears/Nose/Throat/Neck No headache 02/20/2019 Respiratory No dyspnea on exertion 02/20/2019 Gastrointestinal No vomiting 02/20/2019 Gastrointestinal No nausea 02/20/2019 Dermatologic No rash 02/20/2019 Neurologic No alteration of consciousness 02/20/2019 Constitutional No recent illness 01/23/2019 Constitutional No anorexia 01/23/2019 Constitutional No night sweats 01/23/2019 Constitutional No chills 01/23/2019 Constitutional No diaphoresis 01/23/2019 Constitutional fatigue 01/23/2019 Constitutional No fever 01/23/2019 Constitutional No insomnia 01/23/2019 Constitutional No malaise 01/23/2019 Constitutional No weight loss 01/23/2019 Constitutional No weight gain 01/23/2019 Eyes No eye discharge 01/23/2019 Eyes No eye erythema 01/23/2019 Ears/Nose/Throat/Neck No dizziness 01/23/2019 Ears/Nose/Throat/Neck No headache 01/23/2019 Ears/Nose/Throat/Neck No nasal discharge 01/23/2019 Cardiovascular No chest pain/pressure 01/23/2019 Cardiovascular No dyspnea 01/23/2019 Cardiovascular edema 01/23/2019 Respiratory No productive sputum 01/23/2019 Respiratory No cough 01/23/2019 Gastrointestinal No abdominal pain 01/23/2019 Gastrointestinal constipation 01/23/2019 Gastrointestinal No diarrhea 01/23/2019 Genitourinary/Nephrology No dysuria 01/23/2019 Musculoskeletal back pain 01/23/2019 Musculoskeletal sciatica 01/23/2019 Dermatologic No rash 01/23/2019 Neurologic No alteration of consciousness 01/23/2019 Psychiatric anxiety 01/23/2019 Psychiatric depression 01/23/2019 Endocrine No dry or coarse skin 01/23/2019 Endocrine diabetes mellitus type 2 01/23/2019 Hematologic/Lymphatic No abnormal bleeding and bruising 01/23/2019 Constitutional recent illness 12/22/2018 Constitutional No anorexia 12/22/2018 Constitutional No night sweats 12/22/2018 Constitutional No chills 12/22/2018 Constitutional No diaphoresis 12/22/2018 Constitutional No fatigue 12/22/2018 Constitutional No fever 12/22/2018 Constitutional No insomnia 12/22/2018 Constitutional No malaise 12/22/2018 Constitutional No weight loss 12/22/2018 Constitutional No weight gain 12/22/2018 Cardiovascular No chest pain/pressure 12/22/2018 Cardiovascular No dyspnea 12/22/2018 Cardiovascular No palpitations 12/22/2018 Gastrointestinal No vomiting 12/22/2018 Gastrointestinal No nausea 12/22/2018 Gastrointestinal constipation 12/22/2018 Gastrointestinal No abdominal pain 12/22/2018 Dermatologic No rash 12/22/2018 Constitutional recent illness 12/19/2018 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 Constitutional No night sweats 12/19/2018 Constitutional No chills 12/19/2018 Constitutional diaphoresis 12/19/2018 Constitutional fatigue 12/19/2018 Constitutional No fever 12/19/2018 Constitutional No insomnia 12/19/2018 Constitutional malaise 12/19/2018 Constitutional No weight loss 12/19/2018 Constitutional No weight gain 12/19/2018 Eyes No eye discharge 12/19/2018 Eyes No eye erythema 12/19/2018 Ears/Nose/Throat/Neck dizziness 12/19/2018 Ears/Nose/Throat/Neck headache 12/19/2018 Cardiovascular No chest pain/pressure 12/19/2018 Cardiovascular palpitations 12/19/2018 Respiratory cough 12/19/2018 Gastrointestinal No abdominal pain 12/19/2018 Gastrointestinal constipation 12/19/2018 Gastrointestinal No diarrhea 12/19/2018 Gastrointestinal nausea 12/19/2018 Gastrointestinal vomiting 12/19/2018 Genitourinary/Nephrology No dysuria 12/19/2018 Musculoskeletal joint complaint 12/19/2018 Dermatologic No rash 12/19/2018 Neurologic No alteration of consciousness 12/19/2018 Cardiovascular exercise intolerance 12/19/2018 Cardiovascular fatigue 12/19/2018 Respiratory dyspnea on exertion 12/19/2018 Respiratory dyspnea 12/19/2018 Cardiovascular dyspnea 12/19/2018 Musculoskeletal back pain 10/26/2018 Musculoskeletal sciatica 10/26/2018 Constitutional No recent illness 10/26/2018 Constitutional No anorexia 10/26/2018 Constitutional No night sweats 10/26/2018 Constitutional No chills 10/26/2018 Constitutional No diaphoresis 10/26/2018 Constitutional No fatigue 10/26/2018 Constitutional No fever 10/26/2018 Constitutional No insomnia 10/26/2018 Constitutional No malaise 10/26/2018 Constitutional No weight gain 10/26/2018 Constitutional No weight loss 10/26/2018 Eyes No eye discharge 10/26/2018 Eyes No eye erythema 10/26/2018 Ears/Nose/Throat/Neck No dizziness 10/26/2018 Ears/Nose/Throat/Neck No headache 10/26/2018 Ears/Nose/Throat/Neck No nasal discharge 10/26/2018 Cardiovascular No chest pain/pressure 10/26/2018 Cardiovascular No dyspnea 10/26/2018 Cardiovascular edema 10/26/2018 Respiratory No productive sputum 10/26/2018 Respiratory No cough 10/26/2018 Gastrointestinal No abdominal pain 10/26/2018 Gastrointestinal constipation 10/26/2018 Gastrointestinal No diarrhea 10/26/2018 Genitourinary/Nephrology No dysuria 10/26/2018 Dermatologic No rash 10/26/2018 Neurologic No alteration of consciousness 10/26/2018 Psychiatric anxiety 10/26/2018 Psychiatric depression 10/26/2018 Endocrine diabetes mellitus type 2 10/26/2018 Endocrine No dry or coarse skin 10/26/2018 Hematologic/Lymphatic No abnormal bleeding and bruising 10/26/2018 Constitutional No recent illness 07/20/2018 Constitutional No night sweats 07/20/2018 Constitutional No chills 07/20/2018 Constitutional No diaphoresis 07/20/2018 Constitutional No fever 07/20/2018 Constitutional No insomnia 07/20/2018 Constitutional No malaise 07/20/2018 Constitutional No weight gain 07/20/2018 Eyes No eye discharge 07/20/2018 Eyes No eye erythema 07/20/2018 Ears/Nose/Throat/Neck No dizziness 07/20/2018 Ears/Nose/Throat/Neck No headache 07/20/2018 Cardiovascular No chest pain/pressure 07/20/2018 Cardiovascular No dyspnea 07/20/2018 Cardiovascular edema 07/20/2018 Respiratory No productive sputum 07/20/2018 Respiratory No chest congestion 07/20/2018 Gastrointestinal No abdominal pain 07/20/2018 Gastrointestinal No constipation 07/20/2018 Gastrointestinal No diarrhea 07/20/2018 Genitourinary/Nephrology No dysuria 07/20/2018 Musculoskeletal back pain 07/20/2018 Musculoskeletal joint complaint 07/20/2018 Musculoskeletal muscle weakness 07/20/2018 Musculoskeletal myalgias 07/20/2018 Dermatologic No rash 07/20/2018 Neurologic No alteration of consciousness 07/20/2018 Psychiatric No anxiety 07/20/2018 Psychiatric No depression 07/20/2018 Endocrine No dry or coarse skin 07/20/2018 Endocrine diabetes mellitus type 2 07/20/2018 Constitutional No anorexia 07/20/2018 Constitutional No weight loss 07/20/2018 Constitutional No recent illness 04/14/2018 Constitutional No night sweats 04/14/2018 Constitutional No chills 04/14/2018 Constitutional No diaphoresis 04/14/2018 Constitutional fatigue 04/14/2018 Constitutional No fever 04/14/2018 Constitutional No insomnia 04/14/2018 Constitutional No malaise 04/14/2018 Constitutional No weight gain 04/14/2018 Eyes No eye discharge 04/14/2018 Eyes No eye erythema 04/14/2018 Ears/Nose/Throat/Neck No dizziness 04/14/2018 Ears/Nose/Throat/Neck No headache 04/14/2018 Cardiovascular No chest pain/pressure 04/14/2018 Cardiovascular No dyspnea 04/14/2018 Cardiovascular edema 04/14/2018 Respiratory No productive sputum 04/14/2018 Respiratory No chest congestion 04/14/2018 Gastrointestinal No abdominal pain 04/14/2018 Gastrointestinal No constipation 04/14/2018 Gastrointestinal No diarrhea 04/14/2018 Genitourinary/Nephrology No dysuria 04/14/2018 Musculoskeletal joint complaint 04/14/2018 Dermatologic No rash 04/14/2018 Neurologic No alteration of consciousness 04/14/2018 Psychiatric No anxiety 04/14/2018 Psychiatric No depression 04/14/2018 Endocrine No dry or coarse skin 04/14/2018 Endocrine diabetes mellitus type 2 04/14/2018 Musculoskeletal back pain 04/14/2018 Musculoskeletal muscle weakness 04/14/2018 Musculoskeletal myalgias 04/14/2018 Constitutional No recent illness 02/06/2018 Constitutional No night sweats 02/06/2018 Constitutional No chills 02/06/2018 Constitutional No diaphoresis 02/06/2018 Constitutional fatigue 02/06/2018 Constitutional No fever 02/06/2018 Constitutional No insomnia 02/06/2018 Constitutional No malaise 02/06/2018 Constitutional No weight gain 02/06/2018 Eyes No eye discharge 02/06/2018 Eyes No eye erythema 02/06/2018 Ears/Nose/Throat/Neck No dizziness 02/06/2018 Ears/Nose/Throat/Neck No headache 02/06/2018 Cardiovascular No chest pain/pressure 02/06/2018 Cardiovascular No dyspnea 02/06/2018 Cardiovascular edema 02/06/2018 Respiratory No productive sputum 02/06/2018 Respiratory No chest congestion 02/06/2018 Gastrointestinal No abdominal pain 02/06/2018 Gastrointestinal No constipation 02/06/2018 Gastrointestinal No diarrhea 02/06/2018 Genitourinary/Nephrology No dysuria 02/06/2018 Musculoskeletal joint complaint 02/06/2018 Dermatologic No rash 02/06/2018 Neurologic No alteration of consciousness 02/06/2018 Psychiatric No anxiety 02/06/2018 Psychiatric No depression 02/06/2018 Endocrine No dry or coarse skin 02/06/2018 Endocrine diabetes mellitus type 2 02/06/2018 Constitutional No recent illness 01/12/2018 Constitutional No night sweats 01/12/2018 Constitutional No chills 01/12/2018 Constitutional No diaphoresis 01/12/2018 Constitutional No fatigue 01/12/2018 Constitutional No fever 01/12/2018 Constitutional No insomnia 01/12/2018 Constitutional No malaise 01/12/2018 Eyes No eye discharge 01/12/2018 Eyes No eye erythema 01/12/2018 Ears/Nose/Throat/Neck No dizziness 01/12/2018 Ears/Nose/Throat/Neck No headache 01/12/2018 Ears/Nose/Throat/Neck nasal allergies 01/12/2018 Cardiovascular No chest pain/pressure 01/12/2018 Cardiovascular No dyspnea 01/12/2018 Respiratory No productive sputum 01/12/2018 Respiratory No chest congestion 01/12/2018 Gastrointestinal No abdominal pain 01/12/2018 Gastrointestinal No constipation 01/12/2018 Gastrointestinal No diarrhea 01/12/2018 Genitourinary/Nephrology No dysuria 01/12/2018 Dermatologic No rash 01/12/2018 Neurologic No alteration of consciousness 01/12/2018 Psychiatric No anxiety 01/12/2018 Psychiatric No depression 01/12/2018 Endocrine diabetes mellitus type 2 01/12/2018 Constitutional No anorexia 01/12/2018 Constitutional No weight loss 01/12/2018 Constitutional weight gain 01/12/2018 Musculoskeletal No myalgias 01/12/2018 Musculoskeletal back pain 01/12/2018 Constitutional No recent illness 08/04/2017 Constitutional No anorexia 08/04/2017 Constitutional No night sweats 08/04/2017 Constitutional No chills 08/04/2017 Constitutional No diaphoresis 08/04/2017 Constitutional No fatigue 08/04/2017 Constitutional No fever 08/04/2017 Constitutional No insomnia 08/04/2017 Constitutional No malaise 08/04/2017 Constitutional No weight loss 08/04/2017 Constitutional No weight gain 08/04/2017 Eyes No eye discharge 08/04/2017 Eyes No eye erythema 08/04/2017 Ears/Nose/Throat/Neck No dizziness 08/04/2017 Cardiovascular No chest pain/pressure 08/04/2017 Respiratory No cough 08/04/2017 Gastrointestinal abdominal pain 08/04/2017 Gastrointestinal No constipation 08/04/2017 Gastrointestinal No diarrhea 08/04/2017 Gastrointestinal No nausea 08/04/2017 Gastrointestinal No vomiting 08/04/2017 Genitourinary/Nephrology No dysuria 08/04/2017 Genitourinary/Nephrology No urinary urgency 08/04/2017 Genitourinary/Nephrology No urinary frequency 08/04/2017 Musculoskeletal No joint complaint 08/04/2017 Dermatologic No rash 08/04/2017 Dermatologic No sores 08/04/2017 Neurologic No alteration of consciousness 08/04/2017 Constitutional No recent illness 07/19/2017 Constitutional No anorexia 07/19/2017 Constitutional No night sweats 07/19/2017 Constitutional No chills 07/19/2017 Constitutional No diaphoresis 07/19/2017 Constitutional No insomnia 07/19/2017 Constitutional No fever 07/19/2017 Constitutional No fatigue 07/19/2017 Constitutional No malaise 07/19/2017 Constitutional No weight loss 07/19/2017 Constitutional No weight gain 07/19/2017 Eyes No eye discharge 07/19/2017 Eyes No eye erythema 07/19/2017 Ears/Nose/Throat/Neck No dizziness 07/19/2017 Cardiovascular No chest pain/pressure 07/19/2017 Respiratory No cough 07/19/2017 Gastrointestinal abdominal pain 07/19/2017 Gastrointestinal No diarrhea 07/19/2017 Gastrointestinal No constipation 07/19/2017 Gastrointestinal No vomiting 07/19/2017 Gastrointestinal No nausea 07/19/2017 Genitourinary/Nephrology No dysuria 07/19/2017 Genitourinary/Nephrology No urinary frequency 07/19/2017 Genitourinary/Nephrology No urinary urgency 07/19/2017 Musculoskeletal No joint complaint 07/19/2017 Dermatologic No rash 07/19/2017 Dermatologic No sores 07/19/2017 Neurologic No alteration of consciousness 07/19/2017 Constitutional No recent illness 05/05/2017 Constitutional No night sweats 05/05/2017 Constitutional No chills 05/05/2017 Constitutional No diaphoresis 05/05/2017 Constitutional fatigue 05/05/2017 Constitutional No fever 05/05/2017 Constitutional No insomnia 05/05/2017 Constitutional No malaise 05/05/2017 Eyes No eye discharge 05/05/2017 Eyes No eye erythema 05/05/2017 Ears/Nose/Throat/Neck No dizziness 05/05/2017 Ears/Nose/Throat/Neck No headache 05/05/2017 Cardiovascular No chest pain/pressure 05/05/2017 Cardiovascular No dyspnea 05/05/2017 Cardiovascular edema 05/05/2017 Respiratory No productive sputum 05/05/2017 Respiratory No chest congestion 05/05/2017 Gastrointestinal No abdominal pain 05/05/2017 Gastrointestinal No constipation 05/05/2017 Gastrointestinal No diarrhea 05/05/2017 Genitourinary/Nephrology No dysuria 05/05/2017 Musculoskeletal joint complaint 05/05/2017 Dermatologic No rash 05/05/2017 Neurologic No alteration of consciousness 05/05/2017 Psychiatric No anxiety 05/05/2017 Psychiatric No depression 05/05/2017 Endocrine No dry or coarse skin 05/05/2017 Endocrine diabetes mellitus type 2 05/05/2017 Constitutional weight loss 05/05/2017 Constitutional No weight gain 05/05/2017 Constitutional No recent illness 01/27/2017 Constitutional No night sweats 01/27/2017 Constitutional No chills 01/27/2017 Constitutional No diaphoresis 01/27/2017 Constitutional fatigue 01/27/2017 Constitutional No fever 01/27/2017 Constitutional No insomnia 01/27/2017 Constitutional No malaise 01/27/2017 Eyes No eye discharge 01/27/2017 Eyes No eye erythema 01/27/2017 Ears/Nose/Throat/Neck No dizziness 01/27/2017 Ears/Nose/Throat/Neck No headache 01/27/2017 Cardiovascular No chest pain/pressure 01/27/2017 Cardiovascular No dyspnea 01/27/2017 Cardiovascular edema 01/27/2017 Respiratory No productive sputum 01/27/2017 Respiratory No chest congestion 01/27/2017 Gastrointestinal No abdominal pain 01/27/2017 Gastrointestinal No constipation 01/27/2017 Gastrointestinal No diarrhea 01/27/2017 Genitourinary/Nephrology No dysuria 01/27/2017 Musculoskeletal joint complaint 01/27/2017 Dermatologic No rash 01/27/2017 Neurologic No alteration of consciousness 01/27/2017 Psychiatric No anxiety 01/27/2017 Psychiatric No depression 01/27/2017 Endocrine diabetes mellitus type 2 01/27/2017 Ears/Nose/Throat/Neck nasal allergies 01/27/2017 Constitutional No recent illness 07/15/2016 Constitutional No night sweats 07/15/2016 Constitutional No chills 07/15/2016 Constitutional No diaphoresis 07/15/2016 Constitutional fatigue 07/15/2016 Constitutional No fever 07/15/2016 Constitutional No insomnia 07/15/2016 Constitutional No malaise 07/15/2016 Constitutional weight loss 07/15/2016 Eyes No eye discharge 07/15/2016 Eyes No eye erythema 07/15/2016 Ears/Nose/Throat/Neck No dizziness 07/15/2016 Ears/Nose/Throat/Neck No headache 07/15/2016 Cardiovascular No chest pain/pressure 07/15/2016 Cardiovascular No dyspnea 07/15/2016 Cardiovascular edema 07/15/2016 Respiratory No productive sputum 07/15/2016 Respiratory No chest congestion 07/15/2016 Gastrointestinal No abdominal pain 07/15/2016 Gastrointestinal No constipation 07/15/2016 Gastrointestinal No diarrhea 07/15/2016 Genitourinary/Nephrology No dysuria 07/15/2016 Musculoskeletal joint complaint 07/15/2016 Dermatologic No rash 07/15/2016 Neurologic No alteration of consciousness 07/15/2016 Psychiatric No anxiety 07/15/2016 Psychiatric No depression 07/15/2016 Endocrine No dry or coarse skin 07/15/2016 Endocrine diabetes mellitus type 2 07/15/2016 Constitutional No recent illness 03/16/2016 Constitutional No night sweats 03/16/2016 Constitutional No chills 03/16/2016 Constitutional No diaphoresis 03/16/2016 Constitutional fatigue 03/16/2016 Constitutional No fever 03/16/2016 Constitutional No insomnia 03/16/2016 Constitutional No malaise 03/16/2016 Constitutional weight loss 03/16/2016 Eyes No eye discharge 03/16/2016 Eyes No eye erythema 03/16/2016 Ears/Nose/Throat/Neck No dizziness 03/16/2016 Ears/Nose/Throat/Neck No headache 03/16/2016 Cardiovascular No chest pain/pressure 03/16/2016 Cardiovascular No dyspnea 03/16/2016 Cardiovascular edema 03/16/2016 Respiratory No productive sputum 03/16/2016 Respiratory No chest congestion 03/16/2016 Gastrointestinal No abdominal pain 03/16/2016 Gastrointestinal No constipation 03/16/2016 Gastrointestinal No diarrhea 03/16/2016 Genitourinary/Nephrology No dysuria 03/16/2016 Musculoskeletal joint complaint 03/16/2016 Dermatologic No rash 03/16/2016 Neurologic No alteration of consciousness 03/16/2016 Psychiatric No anxiety 03/16/2016 Psychiatric No depression 03/16/2016 Endocrine No dry or coarse skin 03/16/2016 Endocrine diabetes mellitus type 2 03/16/2016 Constitutional No recent illness 09/15/2015 Constitutional No night sweats 09/15/2015 Constitutional No chills 09/15/2015 Constitutional No diaphoresis 09/15/2015 Constitutional fatigue 09/15/2015 Constitutional No fever 09/15/2015 Constitutional No insomnia 09/15/2015 Constitutional No malaise 09/15/2015 Constitutional weight loss 09/15/2015 Eyes No eye discharge 09/15/2015 Eyes No eye erythema 09/15/2015 Ears/Nose/Throat/Neck No dizziness 09/15/2015 Ears/Nose/Throat/Neck No headache 09/15/2015 Cardiovascular No chest pain/pressure 09/15/2015 Cardiovascular No dyspnea 09/15/2015 Cardiovascular edema 09/15/2015 Respiratory No productive sputum 09/15/2015 Respiratory No chest congestion 09/15/2015 Gastrointestinal No abdominal pain 09/15/2015 Gastrointestinal No constipation 09/15/2015 Gastrointestinal No diarrhea 09/15/2015 Genitourinary/Nephrology No dysuria 09/15/2015 Musculoskeletal joint complaint 09/15/2015 Dermatologic No rash 09/15/2015 Neurologic No alteration of consciousness 09/15/2015 Psychiatric No anxiety 09/15/2015 Psychiatric No depression 09/15/2015 Endocrine No dry or coarse skin 09/15/2015 Endocrine diabetes mellitus type 2 09/15/2015 Eyes No eye erythema 03/17/2015 Eyes No eye discharge 03/17/2015 Constitutional No recent illness 03/17/2015 Constitutional No anorexia 03/17/2015 Constitutional No night sweats 03/17/2015 Constitutional No chills 03/17/2015 Constitutional No diaphoresis 03/17/2015 Constitutional No fatigue 03/17/2015 Constitutional No fever 03/17/2015 Constitutional No insomnia 03/17/2015 Constitutional No malaise 03/17/2015 Constitutional No weight loss 03/17/2015 Constitutional No weight gain 03/17/2015 Ears/Nose/Throat/Neck No dizziness 03/17/2015 Ears/Nose/Throat/Neck No headache 03/17/2015 Cardiovascular No chest pain/pressure 03/17/2015 Cardiovascular No dyspnea 03/17/2015 Cardiovascular edema 03/17/2015 Respiratory No productive sputum 03/17/2015 Respiratory No chest congestion 03/17/2015 Gastrointestinal No abdominal pain 03/17/2015 Gastrointestinal No constipation 03/17/2015 Gastrointestinal No diarrhea 03/17/2015 Genitourinary/Nephrology No dysuria 03/17/2015 Dermatologic No rash 03/17/2015 Neurologic No alteration of consciousness 03/17/2015 Musculoskeletal joint complaint 03/17/2015 Psychiatric No depression 03/17/2015 Psychiatric No anxiety 03/17/2015 Endocrine No dry or coarse skin 03/17/2015 Hematologic/Lymphatic No abnormal bleeding and bruising 03/17/2015 Physical Exam Exam Name System Name Item Name Status Result Effective Dates Notes Full Exam - General 1994 Constitutional general appearance Development: appears older than stated age 0502/20/2019 None Full Exam - General 1994 Constitutional general appearance Overall: in no acute distress 02/20/2019 None Full Exam - General 1994 Constitutional general appearance Overall: well nourished 02/20/2019 None Full Exam - General 1994 Eyes conjunctiva/eyelids Overall: conjunctiva clear 02/20/2019 None Full Exam - General 1994 Eyes conjunctiva/eyelids Overall: cornea clear 02/20/2019 None Full Exam - General 1994 Eyes conjunctiva/eyelids Overall: eyelids normal 02/20/2019 None Full Exam - General 1994 Eyes pupils and irises Overall: pupils equal, round, reactive to light and accomodation 02/20/2019 None Full Exam - General 1994 Ears/Nose/Throat otoscopic exam Overall: external auditory canals clear 02/20/2019 None Full Exam - General 1994 Ears/Nose/Throat otoscopic exam Overall: tympanic membranes clear 02/20/2019 None Full Exam - General 1994 Ears/Nose/Throat oral cavity/pharynx/larynx Overall: oral mucosa clear 02/20/2019 None Full Exam - General 1994 Ears/Nose/Throat oral cavity/pharynx/larynx Overall: oropharyngeal mucosa clear 02/20/2019 None Full Exam - General 1994 Ears/Nose/Throat oral cavity/pharynx/larynx Overall: no masses 02/20/2019 None Full Exam - General 1994 Respiratory auscultation Overall: breath sounds clear bilaterally 02/20/2019 None Full Exam - General 1994 Respiratory respiratory effort/rhythm Overall: no retractions 02/20/2019 None Full Exam - General 1994 Respiratory respiratory effort/rhythm Overall: normal rate 02/20/2019 None Full Exam - General 1994 Cardiovascular auscultation of heart Overall: normal heart sounds 02/20/2019 None Full Exam - General 1994 Abdomen abdominal exam Overall: no tenderness 02/20/2019 None Full Exam - General 1994 Abdomen abdominal exam Overall: normal bowel sounds 02/20/2019 None Full Exam - General 1994 Lymphatic neck nodes Overall: anterior cervical chain benign 02/20/2019 None Full Exam - General 1994 Lymphatic neck nodes Overall: posterior cervical chain benign 02/20/2019 None Full Exam - General 1994 Musculoskeletal head and neck Overall: head atraumatic 02/20/2019 None Full Exam - General 1994 Integument inspection of skin Overall: few scattered moles, no gross abnormalities 02/20/2019 None Full Exam - General 1994 Psychiatric orientation/consciousness Overall: oriented to person, place and time 02/20/2019 None Full Exam - Cardiology Cardiovascular auscultation of heart Overall: regular rate 02/20/2019 None Full Exam - General 1994 Constitutional general appearance Development: appears older than stated age 0401/23/2019 None Full Exam - General 1994 Constitutional general appearance Overall: in no acute distress 01/23/2019 None Full Exam - General 1994 Constitutional general appearance Overall: well nourished 01/23/2019 None Full Exam - General 1994 Eyes conjunctiva/eyelids Overall: conjunctiva clear 01/23/2019 None Full Exam - General 1994 Eyes conjunctiva/eyelids Overall: cornea clear 01/23/2019 None Full Exam - General 1994 Eyes conjunctiva/eyelids Overall: eyelids normal 01/23/2019 None Full Exam - General 1994 Eyes pupils and irises Overall: pupils equal, round, reactive to light and accomodation 01/23/2019 None Full Exam - General 1994 Ears/Nose/Throat otoscopic exam Overall: external auditory canals clear 01/23/2019 None Full Exam - General 1994 Ears/Nose/Throat otoscopic exam Overall: tympanic membranes clear 01/23/2019 None Full Exam - General 1994 Ears/Nose/Throat oral cavity/pharynx/larynx Overall: oral mucosa clear 01/23/2019 None Full Exam - General 1994 Ears/Nose/Throat oral cavity/pharynx/larynx Overall: oropharyngeal mucosa clear 01/23/2019 None Full Exam - General 1994 Ears/Nose/Throat oral cavity/pharynx/larynx Overall: no masses 01/23/2019 None Full Exam - General 1994 Respiratory auscultation Overall: breath sounds clear bilaterally 01/23/2019 None Full Exam - General 1994 Respiratory respiratory effort/rhythm Overall: no retractions 01/23/2019 None Full Exam - General 1994 Respiratory respiratory effort/rhythm Overall: normal rate 01/23/2019 None Full Exam - General 1994 Cardiovascular auscultation of heart Overall: normal heart sounds 01/23/2019 None Full Exam - General 1994 Abdomen abdominal exam Overall: no tenderness 01/23/2019 None Full Exam - General 1994 Abdomen abdominal exam Overall: normal bowel sounds 01/23/2019 None Full Exam - General 1994 Lymphatic neck nodes Overall: anterior cervical chain benign 01/23/2019 None Full Exam - General 1994 Lymphatic neck nodes Overall: posterior cervical chain benign 01/23/2019 None Full Exam - General 1994 Musculoskeletal head and neck Overall: head atraumatic 01/23/2019 None Full Exam - General 1994 Integument inspection of skin Overall: few scattered moles, no gross abnormalities 01/23/2019 None Full Exam - General 1994 Psychiatric orientation/consciousness Overall: oriented to person, place and time 01/23/2019 None Full Exam - General 1994 Cardiovascular auscultation of heart Rate: bradycardia 01/23/2019 None Full Exam - General 1994 Constitutional general appearance Overall: well developed 12/22/2018 None Full Exam - General 1994 Constitutional general appearance Overall: in no acute distress 12/22/2018 None Full Exam - General 1994 Constitutional general appearance Overall: well nourished 12/22/2018 None Full Exam - General 1994 Respiratory auscultation Overall: breath sounds clear bilaterally 12/22/2018 None Full Exam - General 1994 Respiratory respiratory effort/rhythm Overall: no retractions 12/22/2018 None Full Exam - General 1994 Respiratory respiratory effort/rhythm Overall: normal rate 12/22/2018 None Full Exam - General 1994 Cardiovascular auscultation of heart Overall: regular rate 12/22/2018 None Full Exam - General 1994 Cardiovascular auscultation of heart Overall: normal heart sounds 12/22/2018 None Full Exam - General 1994 Psychiatric orientation/consciousness Overall: oriented to person, place and time 12/22/2018 None Full Exam - General 1994 Constitutional general appearance Development: appears older than stated age 0312/19/2018 None Full Exam - General 1994 Constitutional general appearance Overall: in no acute distress 12/19/2018 None Full Exam - General 1994 Constitutional general appearance Overall: well nourished 12/19/2018 None Full Exam - General 1994 Eyes conjunctiva/eyelids Overall: conjunctiva clear 12/19/2018 None Full Exam - General 1994 Eyes conjunctiva/eyelids Overall: cornea clear 12/19/2018 None Full Exam - General 1994 Eyes conjunctiva/eyelids Overall: eyelids normal 12/19/2018 None Full Exam - General 1994 Eyes pupils and irises Overall: pupils equal, round, reactive to light and accomodation 12/19/2018 None Full Exam - General 1994 Ears/Nose/Throat otoscopic exam Overall: external auditory canals clear 12/19/2018 None Full Exam - General 1994 Ears/Nose/Throat otoscopic exam Overall: tympanic membranes clear 12/19/2018 None Full Exam - General 1994 Ears/Nose/Throat oral cavity/pharynx/larynx Overall: oral mucosa clear 12/19/2018 None Full Exam - General 1994 Ears/Nose/Throat oral cavity/pharynx/larynx Overall: oropharyngeal mucosa clear 12/19/2018 None Full Exam - General 1994 Ears/Nose/Throat oral cavity/pharynx/larynx Overall: no masses 12/19/2018 None Full Exam - General 1994 Respiratory auscultation Overall: breath sounds clear bilaterally 12/19/2018 None Full Exam - General 1994 Respiratory respiratory effort/rhythm Overall: no retractions 12/19/2018 None Full Exam - General 1994 Respiratory respiratory effort/rhythm Overall: normal rate 12/19/2018 None Full Exam - General 1994 Cardiovascular auscultation of heart Overall: regular rate 12/19/2018 None Full Exam - General 1994 Abdomen abdominal exam Overall: no tenderness 12/19/2018 None Full Exam - General 1994 Abdomen abdominal exam Overall: normal bowel sounds 12/19/2018 None Full Exam - General 1994 Lymphatic neck nodes Overall: anterior cervical chain benign 12/19/2018 None Full Exam - General 1994 Lymphatic neck nodes Overall: posterior cervical chain benign 12/19/2018 None Full Exam - General 1994 Musculoskeletal head and neck Overall: head atraumatic 12/19/2018 None Full Exam - General 1994 Integument inspection of skin Overall: few scattered moles, no gross abnormalities 12/19/2018 None Full Exam - General 1994 Psychiatric orientation/consciousness Overall: oriented to person, place and time 12/19/2018 None Full Exam - Cardiology Cardiovascular auscultation of heart Rhythm: irregularly irregular rhythm 12/19/2018 None Full Exam - General 1994 Constitutional general appearance Development: appears older than stated age 0110/26/2018 None Full Exam - General 1994 Constitutional general appearance Overall: in no acute distress 10/26/2018 None Full Exam - General 1994 Constitutional general appearance Overall: well nourished 10/26/2018 None Full Exam - General 1994 Eyes conjunctiva/eyelids Overall: conjunctiva clear 10/26/2018 None Full Exam - General 1994 Eyes conjunctiva/eyelids Overall: cornea clear 10/26/2018 None Full Exam - General 1994 Eyes conjunctiva/eyelids Overall: eyelids normal 10/26/2018 None Full Exam - General 1994 Eyes pupils and irises Overall: pupils equal, round, reactive to light and accomodation 10/26/2018 None Full Exam - General 1994 Ears/Nose/Throat otoscopic exam Overall: external auditory canals clear 10/26/2018 None Full Exam - General 1994 Ears/Nose/Throat otoscopic exam Overall: tympanic membranes clear 10/26/2018 None Full Exam - General 1995 Ears/Nose/Throat oral cavity/pharynx/larynx Overall: oral mucosa clear 10/26/2018 None Full Exam - General 1995 Ears/Nose/Throat oral cavity/pharynx/larynx Overall: oropharyngeal mucosa clear 10/26/2018 None Full Exam - General 1995 Ears/Nose/Throat oral cavity/pharynx/larynx Overall: no masses 10/26/2018 None Full Exam - General 1994 Respiratory auscultation Overall: breath sounds clear bilaterally 10/26/2018 None Full Exam - General 1994 Respiratory respiratory effort/rhythm Overall: no retractions 10/26/2018 None Full Exam - General 1994 Respiratory respiratory effort/rhythm Overall: normal rate 10/26/2018 None Full Exam - General 1994 Cardiovascular auscultation of heart Overall: regular rate 10/26/2018 None Full Exam - General 1994 Cardiovascular auscultation of heart Overall: normal heart sounds 10/26/2018 None Full Exam - General 1994 Abdomen abdominal exam Overall: no tenderness 10/26/2018 None Full Exam - General 1994 Abdomen abdominal exam Overall: normal bowel sounds 10/26/2018 None Full Exam - General 1994 Lymphatic neck nodes Overall: anterior cervical chain benign 10/26/2018 None Full Exam - General 1994 Lymphatic neck nodes Overall: posterior cervical chain benign 10/26/2018 None Full Exam - General 1994 Musculoskeletal head and neck Overall: head atraumatic 10/26/2018 None Full Exam - General 1994 Integument inspection of skin Overall: few scattered moles, no gross abnormalities 10/26/2018 None Full Exam - General 1994 Psychiatric orientation/consciousness Overall: oriented to person, place and time 10/26/2018 None Full Exam - General 1994 Constitutional general appearance Development: appears older than stated age 1007/20/2018 None Full Exam - General 1994 Constitutional general appearance Overall: in no acute distress 07/20/2018 None Full Exam - General 1994 Constitutional general appearance Overall: well nourished 07/20/2018 None Full Exam - General 1994 Eyes conjunctiva/eyelids Overall: conjunctiva clear 07/20/2018 None Full Exam - General 1994 Eyes conjunctiva/eyelids Overall: cornea clear 07/20/2018 None Full Exam - General 1994 Eyes conjunctiva/eyelids Overall: eyelids normal 07/20/2018 None Full Exam - General 1994 Eyes pupils and irises Overall: pupils equal, round, reactive to light and accomodation 07/20/2018 None Full Exam - General 1994 Ears/Nose/Throat otoscopic exam Overall: external auditory canals clear 07/20/2018 None Full Exam - General 1994 Ears/Nose/Throat otoscopic exam Overall: tympanic membranes clear 07/20/2018 None Full Exam - General 1994 Ears/Nose/Throat oral cavity/pharynx/larynx Overall: oral mucosa clear 07/20/2018 None Full Exam - General 1994 Ears/Nose/Throat oral cavity/pharynx/larynx Overall: oropharyngeal mucosa clear 07/20/2018 None Full Exam - General 1994 Ears/Nose/Throat oral cavity/pharynx/larynx Overall: no masses 07/20/2018 None Full Exam - General 1994 Respiratory auscultation Overall: breath sounds clear bilaterally 07/20/2018 None Full Exam - General 1994 Respiratory respiratory effort/rhythm Overall: no retractions 07/20/2018 None Full Exam - General 1994 Respiratory respiratory effort/rhythm Overall: normal rate 07/20/2018 None Full Exam - General 1994 Cardiovascular auscultation of heart Overall: regular rate 07/20/2018 None Full Exam - General 1994 Cardiovascular auscultation of heart Overall: normal heart sounds 07/20/2018 None Full Exam - General 1994 Abdomen abdominal exam Overall: no tenderness 07/20/2018 None Full Exam - General 1994 Abdomen abdominal exam Overall: normal bowel sounds 07/20/2018 None Full Exam - General 1994 Lymphatic neck nodes Overall: anterior cervical chain benign 07/20/2018 None Full Exam - General 1994 Lymphatic neck nodes Overall: posterior cervical chain benign 07/20/2018 None Full Exam - General 1994 Musculoskeletal head and neck Overall: head atraumatic 07/20/2018 None Full Exam - General 1994 Integument inspection of skin Overall: few scattered moles, no gross abnormalities 07/20/2018 None Full Exam - General 1994 Psychiatric orientation/consciousness Overall: oriented to person, place and time 07/20/2018 None Full Exam - General 1994 Constitutional general appearance Development: appears older than stated age 0704/14/2018 None Full Exam - General 1994 Constitutional general appearance Overall: in no acute distress 04/14/2018 None Full Exam - General 1994 Constitutional general appearance Overall: well nourished 04/14/2018 None Full Exam - General 1994 Eyes conjunctiva/eyelids Overall: conjunctiva clear 04/14/2018 None Full Exam - General 1994 Eyes conjunctiva/eyelids Overall: cornea clear 04/14/2018 None Full Exam - General 1994 Eyes conjunctiva/eyelids Overall: eyelids normal 04/14/2018 None Full Exam - General 1994 Eyes pupils and irises Overall: pupils equal, round, reactive to light and accomodation 04/14/2018 None Full Exam - General 1994 Ears/Nose/Throat otoscopic exam Overall: external auditory canals clear 04/14/2018 None Full Exam - General 1994 Ears/Nose/Throat otoscopic exam Overall: tympanic membranes clear 04/14/2018 None Full Exam - General 1994 Ears/Nose/Throat oral cavity/pharynx/larynx Overall: oral mucosa clear 04/14/2018 None Full Exam - General 1994 Ears/Nose/Throat oral cavity/pharynx/larynx Overall: oropharyngeal mucosa clear 04/14/2018 None Full Exam - General 1994 Ears/Nose/Throat oral cavity/pharynx/larynx Overall: no masses 04/14/2018 None Full Exam - General 1994 Respiratory auscultation Overall: breath sounds clear bilaterally 04/14/2018 None Full Exam - General 1994 Respiratory respiratory effort/rhythm Overall: no retractions 04/14/2018 None Full Exam - General 1994 Respiratory respiratory effort/rhythm Overall: normal rate 04/14/2018 None Full Exam - General 1994 Cardiovascular auscultation of heart Overall: regular rate 04/14/2018 None Full Exam - General 1994 Cardiovascular auscultation of heart Overall: normal heart sounds 04/14/2018 None Full Exam - General 1994 Abdomen abdominal exam Overall: no tenderness 04/14/2018 None Full Exam - General 1994 Abdomen abdominal exam Overall: normal bowel sounds 04/14/2018 None Full Exam - General 1994 Lymphatic neck nodes Overall: anterior cervical chain benign 04/14/2018 None Full Exam - General 1994 Lymphatic neck nodes Overall: posterior cervical chain benign 04/14/2018 None Full Exam - General 1994 Musculoskeletal head and neck Overall: head atraumatic 04/14/2018 None Full Exam - General 1994 Integument inspection of skin Overall: few scattered moles, no gross abnormalities 04/14/2018 None Full Exam - General 1994 Neurologic sensation Touch: (specify location of deficit): two- point discrimination 04/14/2018 decreased in all toes bilateral feet Full Exam - General 1994 Psychiatric orientation/consciousness Overall: oriented to person, place and time 04/14/2018 None Full Exam - General 1994 Constitutional general appearance Development: appears older than stated age 0402/06/2018 None Full Exam - General 1994 Constitutional general appearance Overall: in no acute distress 02/06/2018 None Full Exam - General 1994 Constitutional general appearance Overall: well nourished 02/06/2018 None Full Exam - General 1994 Eyes conjunctiva/eyelids Overall: conjunctiva clear 02/06/2018 None Full Exam - General 1994 Eyes conjunctiva/eyelids Overall: cornea clear 02/06/2018 None Full Exam - General 1994 Eyes conjunctiva/eyelids Overall: eyelids normal 02/06/2018 None Full Exam - General 1994 Eyes pupils and irises Overall: pupils equal, round, reactive to light and accomodation 02/06/2018 None Full Exam - General 1994 Ears/Nose/Throat otoscopic exam Overall: external auditory canals clear 02/06/2018 None Full Exam - General 1994 Ears/Nose/Throat otoscopic exam Overall: tympanic membranes clear 02/06/2018 None Full Exam - General 1994 Ears/Nose/Throat oral cavity/pharynx/larynx Overall: oral mucosa clear 02/06/2018 None Full Exam - General 1994 Ears/Nose/Throat oral cavity/pharynx/larynx Overall: oropharyngeal mucosa clear 02/06/2018 None Full Exam - General 1994 Ears/Nose/Throat oral cavity/pharynx/larynx Overall: no masses 02/06/2018 None Full Exam - General 1994 Respiratory auscultation Overall: breath sounds clear bilaterally 02/06/2018 None Full Exam - General 1994 Respiratory respiratory effort/rhythm Overall: no retractions 02/06/2018 None Full Exam - General 1994 Respiratory respiratory effort/rhythm Overall: normal rate 02/06/2018 None Full Exam - General 1994 Cardiovascular auscultation of heart Overall: regular rate 02/06/2018 None Full Exam - General 1994 Cardiovascular auscultation of heart Overall: normal heart sounds 02/06/2018 None Full Exam - General 1994 Abdomen abdominal exam Overall: no tenderness 02/06/2018 None Full Exam - General 1994 Abdomen abdominal exam Overall: normal bowel sounds 02/06/2018 None Full Exam - General 1994 Lymphatic neck nodes Overall: anterior cervical chain benign 02/06/2018 None Full Exam - General 1994 Lymphatic neck nodes Overall: posterior cervical chain benign 02/06/2018 None Full Exam - General 1994 Musculoskeletal head and neck Overall: head atraumatic 02/06/2018 None Full Exam - General 1994 Integument inspection of skin Overall: few scattered moles, no gross abnormalities 02/06/2018 None Full Exam - General 1994 Neurologic sensation Touch: (specify location of deficit): two- point discrimination 02/06/2018 decreased in all toes bilateral feet Full Exam - General 1994 Psychiatric orientation/consciousness Overall: oriented to person, place and time 02/06/2018 None Full Exam - General 1994 Constitutional general appearance Development: appears older than stated age 0401/12/2018 None Full Exam - General 1994 Constitutional general appearance Overall: in no acute distress 01/12/2018 None Full Exam - General 1994 Constitutional general appearance Overall: well nourished 01/12/2018 None Full Exam - General 1994 Eyes conjunctiva/eyelids Overall: conjunctiva clear 01/12/2018 None Full Exam - General 1994 Eyes conjunctiva/eyelids Overall: cornea clear 01/12/2018 None Full Exam - General 1994 Eyes conjunctiva/eyelids Overall: eyelids normal 01/12/2018 None Full Exam - General 1994 Eyes pupils and irises Overall: pupils equal, round, reactive to light and accomodation 01/12/2018 None Full Exam - General 1994 Ears/Nose/Throat otoscopic exam Overall: external auditory canals clear 01/12/2018 None Full Exam - General 1994 Ears/Nose/Throat otoscopic exam Overall: tympanic membranes clear 01/12/2018 None Full Exam - General 1994 Ears/Nose/Throat oral cavity/pharynx/larynx Overall: oral mucosa clear 01/12/2018 None Full Exam - General 1994 Ears/Nose/Throat oral cavity/pharynx/larynx Overall: oropharyngeal mucosa clear 01/12/2018 None Full Exam - General 1994 Ears/Nose/Throat oral cavity/pharynx/larynx Overall: no masses 01/12/2018 None Full Exam - General 1994 Respiratory auscultation Overall: breath sounds clear bilaterally 01/12/2018 None Full Exam - General 1994 Respiratory respiratory effort/rhythm Overall: no retractions 01/12/2018 None Full Exam - General 1994 Respiratory respiratory effort/rhythm Overall: normal rate 01/12/2018 None Full Exam - General 1994 Cardiovascular auscultation of heart Overall: regular rate 01/12/2018 None Full Exam - General 1994 Cardiovascular auscultation of heart Overall: normal heart sounds 01/12/2018 None Full Exam - General 1994 Abdomen abdominal exam Overall: no tenderness 01/12/2018 None Full Exam - General 1994 Abdomen abdominal exam Overall: normal bowel sounds 01/12/2018 None Full Exam - General 1994 Lymphatic neck nodes Overall: anterior cervical chain benign 01/12/2018 None Full Exam - General 1994 Lymphatic neck nodes Overall: posterior cervical chain benign 01/12/2018 None Full Exam - General 1994 Neurologic sensation Touch: (specify location of deficit): two- point discrimination 01/12/2018 decreased in all toes bilateral feet Full Exam - General 1994 Psychiatric orientation/consciousness Overall: oriented to person, place and time 01/12/2018 None Full Exam - General 1994 Constitutional general appearance Development: appears older than stated age 1008/04/2017 None Full Exam - General 1994 Constitutional general appearance Overall: in no acute distress 08/04/2017 None Full Exam - General 1994 Constitutional general appearance Overall: well nourished 08/04/2017 None Full Exam - General 1994 Eyes conjunctiva/eyelids Overall: conjunctiva clear 08/04/2017 None Full Exam - General 1994 Eyes conjunctiva/eyelids Overall: cornea clear 08/04/2017 None Full Exam - General 1994 Eyes conjunctiva/eyelids Overall: eyelids normal 08/04/2017 None Full Exam - General 1994 Eyes pupils and irises Overall: pupils equal, round, reactive to light and accomodation 08/04/2017 None Full Exam - General 1994 Ears/Nose/Throat otoscopic exam Overall: external auditory canals clear 08/04/2017 None Full Exam - General 1994 Ears/Nose/Throat otoscopic exam Overall: tympanic membranes clear 08/04/2017 None Full Exam - General 1994 Ears/Nose/Throat oral cavity/pharynx/larynx Overall: oral mucosa clear 08/04/2017 None Full Exam - General 1994 Ears/Nose/Throat oral cavity/pharynx/larynx Overall: oropharyngeal mucosa clear 08/04/2017 None Full Exam - General 1994 Ears/Nose/Throat oral cavity/pharynx/larynx Overall: no masses 08/04/2017 None Full Exam - General 1994 Respiratory auscultation Overall: breath sounds clear bilaterally 08/04/2017 None Full Exam - General 1994 Respiratory respiratory effort/rhythm Overall: no retractions 08/04/2017 None Full Exam - General 1994 Respiratory respiratory effort/rhythm Overall: normal rate 08/04/2017 None Full Exam - General 1994 Cardiovascular auscultation of heart Overall: regular rate 08/04/2017 None Full Exam - General 1994 Cardiovascular auscultation of heart Overall: normal heart sounds 08/04/2017 None Full Exam - General 1994 Abdomen abdominal exam Overall: normal bowel sounds 08/04/2017 None Full Exam - General 1994 Abdomen abdominal exam Contour: rounded 08/04/2017 None Full Exam - General 1994 Abdomen abdominal exam Lower quadrant: tender to palpation 08/04/2017 mild --Resolved Full Exam - General 1994 Lymphatic neck nodes Overall: anterior cervical chain benign 08/04/2017 None Full Exam - General 1994 Lymphatic neck nodes Overall: posterior cervical chain benign 08/04/2017 None Full Exam - General 1994 Musculoskeletal head and neck Overall: head atraumatic 08/04/2017 None Full Exam - General 1994 Integument inspection of skin Overall: few scattered moles, no gross abnormalities 08/04/2017 None Full Exam - General 1994 Psychiatric orientation/consciousness Overall: oriented to person, place and time 08/04/2017 None Full Exam - General 1994 Constitutional general appearance Development: appears older than stated age 1007/19/2017 None Full Exam - General 1994 Constitutional general appearance Overall: in no acute distress 07/19/2017 None Full Exam - General 1994 Constitutional general appearance Overall: well nourished 07/19/2017 None Full Exam - General 1994 Eyes conjunctiva/eyelids Overall: conjunctiva clear 07/19/2017 None Full Exam - General 1994 Eyes conjunctiva/eyelids Overall: cornea clear 07/19/2017 None Full Exam - General 1994 Eyes conjunctiva/eyelids Overall: eyelids normal 07/19/2017 None Full Exam - General 1994 Eyes pupils and irises Overall: pupils equal, round, reactive to light and accomodation 07/19/2017 None Full Exam - General 1994 Ears/Nose/Throat otoscopic exam Overall: external auditory canals clear 07/19/2017 None Full Exam - General 1994 Ears/Nose/Throat otoscopic exam Overall: tympanic membranes clear 07/19/2017 None Full Exam - General 1994 Ears/Nose/Throat oral cavity/pharynx/larynx Overall: oral mucosa clear 07/19/2017 None Full Exam - General 1994 Ears/Nose/Throat oral cavity/pharynx/larynx Overall: oropharyngeal mucosa clear 07/19/2017 None Full Exam - General 1994 Ears/Nose/Throat oral cavity/pharynx/larynx Overall: no masses 07/19/2017 None Full Exam - General 1994 Respiratory auscultation Overall: breath sounds clear bilaterally 07/19/2017 None Full Exam - General 1994 Respiratory respiratory effort/rhythm Overall: no retractions 07/19/2017 None Full Exam - General 1994 Respiratory respiratory effort/rhythm Overall: normal rate 07/19/2017 None Full Exam - General 1994 Cardiovascular auscultation of heart Overall: regular rate 07/19/2017 None Full Exam - General 1994 Cardiovascular auscultation of heart Overall: normal heart sounds 07/19/2017 None Full Exam - General 1994 Abdomen abdominal exam Overall: normal bowel sounds 07/19/2017 None Full Exam - General 1994 Lymphatic neck nodes Overall: anterior cervical chain benign 07/19/2017 None Full Exam - General 1994 Lymphatic neck nodes Overall: posterior cervical chain benign 07/19/2017 None Full Exam - General 1994 Musculoskeletal head and neck Overall: head atraumatic 07/19/2017 None Full Exam - General 1994 Integument inspection of skin Overall: few scattered moles, no gross abnormalities 07/19/2017 None Full Exam - General 1994 Psychiatric orientation/consciousness Overall: oriented to person, place and time 07/19/2017 None Full Exam - General 1994 Abdomen abdominal exam Contour: rounded 07/19/2017 None Full Exam - General 1994 Abdomen abdominal exam Lower quadrant: tender to palpation 07/19/2017 mild Full Exam - General 1994 Constitutional general appearance Development: appears older than stated age 0705/05/2017 None Full Exam - General 1994 Constitutional general appearance Overall: in no acute distress 05/05/2017 None Full Exam - General 1994 Constitutional general appearance Overall: well nourished 05/05/2017 None Full Exam - General 1994 Eyes conjunctiva/eyelids Overall: conjunctiva clear 05/05/2017 None Full Exam - General 1994 Eyes conjunctiva/eyelids Overall: cornea clear 05/05/2017 None Full Exam - General 1994 Eyes conjunctiva/eyelids Overall: eyelids normal 05/05/2017 None Full Exam - General 1994 Eyes pupils and irises Overall: pupils equal, round, reactive to light and accomodation 05/05/2017 None Full Exam - General 1994 Ears/Nose/Throat otoscopic exam Overall: external auditory canals clear 05/05/2017 None Full Exam - General 1994 Ears/Nose/Throat otoscopic exam Overall: tympanic membranes clear 05/05/2017 None Full Exam - General 1994 Ears/Nose/Throat oral cavity/pharynx/larynx Overall: oral mucosa clear 05/05/2017 None Full Exam - General 1994 Ears/Nose/Throat oral cavity/pharynx/larynx Overall: oropharyngeal mucosa clear 05/05/2017 None Full Exam - General 1994 Ears/Nose/Throat oral cavity/pharynx/larynx Overall: no masses 05/05/2017 None Full Exam - General 1994 Respiratory auscultation Overall: breath sounds clear bilaterally 05/05/2017 None Full Exam - General 1994 Respiratory respiratory effort/rhythm Overall: no retractions 05/05/2017 None Full Exam - General 1994 Respiratory respiratory effort/rhythm Overall: normal rate 05/05/2017 None Full Exam - General 1994 Cardiovascular auscultation of heart Overall: regular rate 05/05/2017 None Full Exam - General 1994 Cardiovascular auscultation of heart Overall: normal heart sounds 05/05/2017 None Full Exam - General 1994 Abdomen abdominal exam Overall: no tenderness 05/05/2017 None Full Exam - General 1994 Abdomen abdominal exam Overall: normal bowel sounds 05/05/2017 None Full Exam - General 1994 Lymphatic neck nodes Overall: anterior cervical chain benign 05/05/2017 None Full Exam - General 1994 Lymphatic neck nodes Overall: posterior cervical chain benign 05/05/2017 None Full Exam - General 1994 Musculoskeletal head and neck Overall: head atraumatic 05/05/2017 None Full Exam - General 1994 Integument inspection of skin Overall: few scattered moles, no gross abnormalities 05/05/2017 None Full Exam - General 1994 Neurologic sensation Touch: (specify location of deficit): two- point discrimination 05/05/2017 decreased in all toes bilateral feet Full Exam - General 1994 Psychiatric orientation/consciousness Overall: oriented to person, place and time 05/05/2017 None Full Exam - General 1994 Constitutional general appearance Development: appears older than stated age 0401/27/2017 None Full Exam - General 1994 Constitutional general appearance Overall: in no acute distress 01/27/2017 None Full Exam - General 1994 Constitutional general appearance Overall: well nourished 01/27/2017 None Full Exam - General 1994 Eyes conjunctiva/eyelids Overall: conjunctiva clear 01/27/2017 None Full Exam - General 1994 Eyes conjunctiva/eyelids Overall: cornea clear 01/27/2017 None Full Exam - General 1994 Eyes conjunctiva/eyelids Overall: eyelids normal 01/27/2017 None Full Exam - General 1994 Eyes pupils and irises Overall: pupils equal, round, reactive to light and accomodation 01/27/2017 None Full Exam - General 1994 Ears/Nose/Throat otoscopic exam Overall: external auditory canals clear 01/27/2017 None Full Exam - General 1994 Ears/Nose/Throat otoscopic exam Overall: tympanic membranes clear 01/27/2017 None Full Exam - General 1994 Ears/Nose/Throat oral cavity/pharynx/larynx Overall: oral mucosa clear 01/27/2017 None Full Exam - General 1994 Ears/Nose/Throat oral cavity/pharynx/larynx Overall: oropharyngeal mucosa clear 01/27/2017 None Full Exam - General 1994 Ears/Nose/Throat oral cavity/pharynx/larynx Overall: no masses 01/27/2017 None Full Exam - General 1994 Respiratory auscultation Overall: breath sounds clear bilaterally 01/27/2017 None Full Exam - General 1994 Respiratory respiratory effort/rhythm Overall: no retractions 01/27/2017 None Full Exam - General 1994 Respiratory respiratory effort/rhythm Overall: normal rate 01/27/2017 None Full Exam - General 1994 Cardiovascular auscultation of heart Overall: regular rate 01/27/2017 None Full Exam - General 1994 Cardiovascular auscultation of heart Overall: normal heart sounds 01/27/2017 None Full Exam - General 1994 Abdomen abdominal exam Overall: no tenderness 01/27/2017 None Full Exam - General 1994 Abdomen abdominal exam Overall: normal bowel sounds 01/27/2017 None Full Exam - General 1994 Lymphatic neck nodes Overall: anterior cervical chain benign 01/27/2017 None Full Exam - General 1994 Lymphatic neck nodes Overall: posterior cervical chain benign 01/27/2017 None Full Exam - General 1994 Neurologic sensation Touch: (specify location of deficit): two- point discrimination 01/27/2017 decreased in all toes bilateral feet Full Exam - General 1994 Psychiatric orientation/consciousness Overall: oriented to person, place and time 01/27/2017 None Full Exam - General 1994 Constitutional general appearance Development: appears older than stated age 1007/15/2016 None Full Exam - General 1994 Constitutional general appearance Overall: in no acute distress 07/15/2016 None Full Exam - General 1994 Constitutional general appearance Overall: well nourished 07/15/2016 None Full Exam - General 1994 Eyes conjunctiva/eyelids Overall: conjunctiva clear 07/15/2016 None Full Exam - General 1994 Eyes conjunctiva/eyelids Overall: cornea clear 07/15/2016 None Full Exam - General 1994 Eyes conjunctiva/eyelids Overall: eyelids normal 07/15/2016 None Full Exam - General 1994 Eyes pupils and irises Overall: pupils equal, round, reactive to light and accomodation 07/15/2016 None Full Exam - General 1994 Ears/Nose/Throat otoscopic exam Overall: external auditory canals clear 07/15/2016 None Full Exam - General 1994 Ears/Nose/Throat otoscopic exam Overall: tympanic membranes clear 07/15/2016 None Full Exam - General 1994 Ears/Nose/Throat oral cavity/pharynx/larynx Overall: oral mucosa clear 07/15/2016 None Full Exam - General 1994 Ears/Nose/Throat oral cavity/pharynx/larynx Overall: oropharyngeal mucosa clear 07/15/2016 None Full Exam - General 1994 Ears/Nose/Throat oral cavity/pharynx/larynx Overall: no masses 07/15/2016 None Full Exam - General 1994 Respiratory auscultation Overall: breath sounds clear bilaterally 07/15/2016 None Full Exam - General 1994 Respiratory respiratory effort/rhythm Overall: no retractions 07/15/2016 None Full Exam - General 1994 Respiratory respiratory effort/rhythm Overall: normal rate 07/15/2016 None Full Exam - General 1994 Cardiovascular auscultation of heart Overall: regular rate 07/15/2016 None Full Exam - General 1994 Cardiovascular auscultation of heart Overall: normal heart sounds 07/15/2016 None Full Exam - General 1994 Abdomen abdominal exam Overall: no tenderness 07/15/2016 None Full Exam - General 1994 Abdomen abdominal exam Overall: normal bowel sounds 07/15/2016 None Full Exam - General 1994 Lymphatic neck nodes Overall: anterior cervical chain benign 07/15/2016 None Full Exam - General 1994 Lymphatic neck nodes Overall: posterior cervical chain benign 07/15/2016 None Full Exam - General 1994 Musculoskeletal head and neck Overall: head atraumatic 07/15/2016 None Full Exam - General 1994 Integument inspection of skin Overall: few scattered moles, no gross abnormalities 07/15/2016 None Full Exam - General 1994 Neurologic sensation Touch: (specify location of deficit): two- point discrimination 07/15/2016 decreased in all toes bilateral feet Full Exam - General 1994 Psychiatric orientation/consciousness Overall: oriented to person, place and time 07/15/2016 None Full Exam - General 1994 Constitutional general appearance Development: appears older than stated age 0603/16/2016 None Full Exam - General 1994 Constitutional general appearance Overall: in no acute distress 03/16/2016 None Full Exam - General 1994 Constitutional general appearance Overall: well nourished 03/16/2016 None Full Exam - General 1994 Eyes conjunctiva/eyelids Overall: conjunctiva clear 03/16/2016 None Full Exam - General 1994 Eyes conjunctiva/eyelids Overall: cornea clear 03/16/2016 None Full Exam - General 1994 Eyes conjunctiva/eyelids Overall: eyelids normal 03/16/2016 None Full Exam - General 1994 Eyes pupils and irises Overall: pupils equal, round, reactive to light and accomodation 03/16/2016 None Full Exam - General 1994 Ears/Nose/Throat otoscopic exam Overall: external auditory canals clear 03/16/2016 None Full Exam - General 1994 Ears/Nose/Throat otoscopic exam Overall: tympanic membranes clear 03/16/2016 None Full Exam - General 1994 Ears/Nose/Throat oral cavity/pharynx/larynx Overall: oral mucosa clear 03/16/2016 None Full Exam - General 1994 Ears/Nose/Throat oral cavity/pharynx/larynx Overall: oropharyngeal mucosa clear 03/16/2016 None Full Exam - General 1994 Ears/Nose/Throat oral cavity/pharynx/larynx Overall: no masses 03/16/2016 None Full Exam - General 1994 Respiratory auscultation Overall: breath sounds clear bilaterally 03/16/2016 None Full Exam - General 1994 Respiratory respiratory effort/rhythm Overall: no retractions 03/16/2016 None Full Exam - General 1994 Respiratory respiratory effort/rhythm Overall: normal rate 03/16/2016 None Full Exam - General 1994 Cardiovascular auscultation of heart Overall: regular rate 03/16/2016 None Full Exam - General 1994 Cardiovascular auscultation of heart Overall: normal heart sounds 03/16/2016 None Full Exam - General 1994 Abdomen abdominal exam Overall: no tenderness 03/16/2016 None Full Exam - General 1994 Abdomen abdominal exam Overall: normal bowel sounds 03/16/2016 None Full Exam - General 1994 Lymphatic neck nodes Overall: anterior cervical chain benign 03/16/2016 None Full Exam - General 1994 Lymphatic neck nodes Overall: posterior cervical chain benign 03/16/2016 None Full Exam - General 1994 Musculoskeletal head and neck Overall: head atraumatic 03/16/2016 None Full Exam - General 1994 Integument inspection of skin Overall: few scattered moles, no gross abnormalities 03/16/2016 None Full Exam - General 1994 Neurologic sensation Touch: (specify location of deficit): two- point discrimination 03/16/2016 decreased in all toes bilateral feet Full Exam - General 1994 Psychiatric orientation/consciousness Overall: oriented to person, place and time 03/16/2016 None Full Exam - General 1994 Constitutional general appearance Development: appears older than stated age 1209/15/2015 None Full Exam - General 1994 Constitutional general appearance Overall: in no acute distress 09/15/2015 None Full Exam - General 1994 Constitutional general appearance Overall: well nourished 09/15/2015 None Full Exam - General 1994 Eyes conjunctiva/eyelids Overall: conjunctiva clear 09/15/2015 None Full Exam - General 1994 Eyes conjunctiva/eyelids Overall: cornea clear 09/15/2015 None Full Exam - General 1994 Eyes conjunctiva/eyelids Overall: eyelids normal 09/15/2015 None Full Exam - General 1994 Eyes pupils and irises Overall: pupils equal, round, reactive to light and accomodation 09/15/2015 None Full Exam - General 1994 Ears/Nose/Throat otoscopic exam Overall: external auditory canals clear 09/15/2015 None Full Exam - General 1994 Ears/Nose/Throat otoscopic exam Overall: tympanic membranes clear 09/15/2015 None Full Exam - General 1994 Ears/Nose/Throat oral cavity/pharynx/larynx Overall: oral mucosa clear 09/15/2015 None Full Exam - General 1994 Ears/Nose/Throat oral cavity/pharynx/larynx Overall: oropharyngeal mucosa clear 09/15/2015 None Full Exam - General 1994 Ears/Nose/Throat oral cavity/pharynx/larynx Overall: no masses 09/15/2015 None Full Exam - General 1994 Respiratory auscultation Overall: breath sounds clear bilaterally 09/15/2015 None Full Exam - General 1994 Respiratory respiratory effort/rhythm Overall: no retractions 09/15/2015 None Full Exam - General 1994 Respiratory respiratory effort/rhythm Overall: normal rate 09/15/2015 None Full Exam - General 1994 Cardiovascular auscultation of heart Overall: regular rate 09/15/2015 None Full Exam - General 1994 Cardiovascular auscultation of heart Overall: normal heart sounds 09/15/2015 None Full Exam - General 1994 Abdomen abdominal exam Overall: no tenderness 09/15/2015 None Full Exam - General 1994 Abdomen abdominal exam Overall: normal bowel sounds 09/15/2015 None Full Exam - General 1994 Lymphatic neck nodes Overall: anterior cervical chain benign 09/15/2015 None Full Exam - General 1994 Lymphatic neck nodes Overall: posterior cervical chain benign 09/15/2015 None Full Exam - General 1994 Musculoskeletal head and neck Overall: head atraumatic 09/15/2015 None Full Exam - General 1994 Integument inspection of skin Overall: few scattered moles, no gross abnormalities 09/15/2015 None Full Exam - General 1994 Neurologic sensation Touch: (specify location of deficit): two- point discrimination 09/15/2015 decreased in all toes bilateral feet Full Exam - General 1994 Psychiatric orientation/consciousness Overall: oriented to person, place and time 09/15/2015 None Full Exam - General 1994 Constitutional general appearance Overall: in no acute distress 03/17/2015 None Full Exam - General 1994 Constitutional general appearance Overall: well nourished 03/17/2015 None Full Exam - General 1994 Constitutional general appearance Development: appears older than stated age 0603/17/2015 None Full Exam - General 1994 Psychiatric orientation/consciousness Overall: oriented to person, place and time 03/17/2015 None Full Exam - General 1994 Neurologic sensation Touch: (specify location of deficit): two- point discrimination 03/17/2015 decreased in all toes bilateral feet Full Exam - General 1994 Integument inspection of skin Overall: few scattered moles, no gross abnormalities 03/17/2015 None Full Exam - General 1994 Musculoskeletal head and neck Overall: head atraumatic 03/17/2015 None Full Exam - General 1994 Lymphatic neck nodes Overall: anterior cervical chain benign 03/17/2015 None Full Exam - General 1994 Lymphatic neck nodes Overall: posterior cervical chain benign 03/17/2015 None Full Exam - General 1994 Abdomen abdominal exam Overall: no tenderness 03/17/2015 None Full Exam - General 1994 Abdomen abdominal exam Overall: normal bowel sounds 03/17/2015 None Full Exam - General 1994 Cardiovascular auscultation of heart Overall: regular rate 03/17/2015 None Full Exam - General 1994 Cardiovascular auscultation of heart Overall: normal heart sounds 03/17/2015 None Full Exam - General 1994 Respiratory auscultation Overall: breath sounds clear bilaterally 03/17/2015 None Full Exam - General 1994 Respiratory respiratory effort/rhythm Overall: normal rate 03/17/2015 None Full Exam - General 1994 Respiratory respiratory effort/rhythm Overall: no retractions 03/17/2015 None Full Exam - General 1994 Ears/Nose/Throat otoscopic exam Overall: tympanic membranes clear 03/17/2015 None Full Exam - General 1994 Ears/Nose/Throat otoscopic exam Overall: external auditory canals clear 03/17/2015 None Full Exam - General 1994 Ears/Nose/Throat oral cavity/pharynx/larynx Overall: oropharyngeal mucosa clear 03/17/2015 None Full Exam - General 1994 Ears/Nose/Throat oral cavity/pharynx/larynx Overall: no masses 03/17/2015 None Full Exam - General 1994 Ears/Nose/Throat oral cavity/pharynx/larynx Overall: oral mucosa clear 03/17/2015 None Full Exam - General 1994 Eyes conjunctiva/eyelids Overall: conjunctiva clear 03/17/2015 None Full Exam - General 1994 Eyes conjunctiva/eyelids Overall: eyelids normal 03/17/2015 None Full Exam - General 1994 Eyes conjunctiva/eyelids Overall: cornea clear 03/17/2015 None Full Exam - General 1994 Eyes pupils and irises Overall: pupils equal, round, reactive to light and accomodation 03/17/2015 None Procedures Procedure Codes Date ADMIN INFLUENZA VIRUS VAC CPT-4: G0008 07/27/2018 FLU VACC PRSV FREE INC ANTIG Formatting Model/CDA Sections, Assigned to/Margarita Brock CPT-4: [id number] 07/27/2018 FLU VAC NO PRSV 4 SHANNON 3 YRS+ CPT-4: 32759 08/04/2017 ADMIN INFLUENZA VIRUS VAC CPT-4: G0008 08/04/2017 TRIAMCINOLONE ACET INJ NOS CPT-4: J3301 01/27/2017 THER/PROPH/DIAG INJ SC/IM CPT-4: 20918 01/27/2017 ADMIN INFLUENZA VIRUS VAC CPT-4: G0008 07/15/2016 FLU VACC 4 SHANNON 3 YRS [address]US IM SNOMED CT: [id number] CPT-4: 71041 07/15/2016 Vital Signs Date Vital 02/20/2019 Blood Pressure 1: 144/76 Code: 8480-6 BMI: 33.3 Code: 10684-9 Heart Rate 1: 66 bpm Height: 5'4" SpO2: 98% Weight: 197 lbs 01/23/2019 Blood Pressure 1: 108/62 Code: 8480-6 Heart Rate 1: 56 bpm Height: SpO2: 99% Weight: 197 lbs 12/22/2018 Blood Pressure 1: 140/74 Code: 8480-6 Heart Rate 1: 59 bpm Height: 5'4" SpO2: 99% Weight: 12/19/2018 Blood Pressure 1: 128/78 Code: 8480-6 Heart Rate 1: 96 bpm Height: 5'4" SpO2: 97% Weight: 10/26/2018 Blood Pressure 1: 132/76 Code: 8480-6 BMI: 34.5 Code: 89995-2 Heart Rate 1: 55 bpm Height: 5'4" SpO2: 99% Weight: 204 lbs 07/20/2018 Blood Pressure 1: 116/74 Code: 8480-6 BMI: 34.5 Code: 27298-4 Heart Rate 1: 52 bpm Height: 5'4" SpO2: 99% Weight: 204 lbs 04/14/2018 Blood Pressure 1: 128/76 Code: 8480-6 BMI: 34.5 Code: 07719-1 Heart Rate 1: 67 bpm Height: 5'4" SpO2: 95% Weight: 204 lbs 02/06/2018 Blood Pressure 1: 142/78 Code: 8480-6 BMI: 35.2 Code: 13718-7 Heart Rate 1: 58 bpm Height: 5'4" SpO2: 98% Weight: 208 lbs 01/12/2018 Blood Pressure 1: 132/82 Code: 8480-6 BMI: 34.8 Code: 55569-7 Height: 5'4" Weight: 206 lbs 08/04/2017 Blood Pressure 1: 140/82 Code: 8480-6 BMI: 31.9 Code: 22808-9 Heart Rate 1: 58 bpm Height: 5'4" SpO2: 99% Weight: 188 lbs 8 oz 07/19/2017 Blood Pressure 1: 136/76 Code: 8480-6 BMI: 32.0 Code: 60094-1 Heart Rate 1: 67 bpm Height: 5'4" SpO2: 97% Weight: 189 lbs 8 oz 05/05/2017 Blood Pressure 1: 142/80 Code: 8480-6 BMI: 32.4 Code: 41415-6 Heart Rate 1: 54 bpm Height: 5'4" SpO2: 98% Weight: 191 lbs 8 oz 01/27/2017 Blood Pressure 1: 132/82 Code: 8480-6 BMI: 34.1 Code: 18236-5 Heart Rate 1: 55 bpm Height: 5'4" SpO2: 99% Weight: 202 lbs 07/15/2016 Blood Pressure 1: 128/72 Code: 8480-6 BMI: 34.4 Code: 09867-1 Heart Rate 1: 50 bpm Height: 5'4" SpO2: 98% Weight: 203 lbs 8 oz 03/16/2016 Blood Pressure 1: 118/78 Code: 8480-6 BMI: 34.5 Code: 59196-7 Heart Rate 1: 55 bpm Height: 5'4" SpO2: 98% Weight: 204 lbs 09/15/2015 Blood Pressure 1: 134/72 Code: 8480-6 BMI: 34.6 Code: 08461-4 Heart Rate 1: 52 bpm Height: 5'4" SpO2: 99% Weight: 205 lbs 03/17/2015 Blood Pressure 1: 128/74 Code: 8480-6 BMI: 35.8 Code: 37140-0 Heart Rate 1: 59 bpm Height: 5'4" SpO2: 98% Weight: 212 lbs Functional Status No Functional Status data History of Present Illness Symptom Name Status Result Effective Date Notes Location on the left shoulder 02/20/2019 None Quality acute 02/20/2019 None Quality intermittent 02/20/2019 None Onset and Resolution ongoing 02/20/2019 None Quality aching 02/20/2019 None Mechanism of injury unknown 02/20/2019 None Onset of Symptom 2 weeks ago 02/20/2019 None Limitation on Activities does not limit activities 02/20/2019 None Frequency of Episodes increasing 02/20/2019 None Length of Episodes 2 weeks 02/20/2019 None Triggers no known associated factors 02/20/2019 None Quality feelings of unsteadiness 01/23/2019 None Quality imbalance 01/23/2019 None Quality lightheadedness 01/23/2019 None Quality intermittent 01/23/2019 None Quality acute 01/23/2019 None Onset and Resolution resolved 01/23/2019 None Onset of Symptom 1 weeks ago 01/23/2019 None Limitation on Activities does not limit activities 01/23/2019 None Frequency of Episodes decreasing 01/23/2019 None Triggers no known associated factors 01/23/2019 None Pertinent Findings Denies nausea 01/23/2019 None Onset and Resolution sudden in onset 01/23/2019 None Limitation on Activities moderately limits activities 01/23/2019 None Limitation on Activities is incapacitating 01/23/2019 None Pertinent Findings imbalance 01/23/2019 None Pertinent Findings lightheadedness 01/23/2019 None Pertinent Findings vomiting 01/23/2019 None Quality feelings of unsteadiness 12/22/2018 None Quality imbalance 12/22/2018 None Quality lightheadedness 12/22/2018 None Quality intermittent 12/22/2018 None Quality acute 12/22/2018 None Onset of Symptom 1 weeks ago 12/22/2018 None Frequency of Episodes decreasing 12/22/2018 None Triggers no known associated factors 12/22/2018 None Onset and Resolution resolved 12/22/2018 None Limitation on Activities does not limit activities 12/22/2018 None Pertinent Findings Denies nausea 12/22/2018 None Quality acute 12/19/2018 None Onset and Resolution sudden in onset 12/19/2018 None Onset of Symptom 1 weeks ago 12/19/2018 None Quality intermittent 12/19/2018 None Quality imbalance 12/19/2018 None Quality feelings of unsteadiness 12/19/2018 None Quality lightheadedness 12/19/2018 None Triggers no known associated factors 12/19/2018 None Limitation on Activities moderately limits activities 12/19/2018 None Limitation on Activities is incapacitating 12/19/2018 None Pertinent Findings vomiting 12/19/2018 None Pertinent Findings nausea 12/19/2018 None Pertinent Findings lightheadedness 12/19/2018 None Pertinent Findings imbalance 12/19/2018 None Frequency of Episodes decreasing 12/19/2018 None Quality non-insulin dependent 10/26/2018 None Quality chronic 10/26/2018 None Severity mild 10/26/2018 None Significant Medical Conditions diabetic neuropathy 10/26/2018 None Alleviating Factors diet 10/26/2018 None Nutrition ADA diet 10/26/2018 None Pertinent Findings Denies dizziness 10/26/2018 None Pertinent Findings Denies dyspnea 10/26/2018 None Onset of Symptom onset as an adult 10/26/2018 None Onset of Symptom during adulthood 10/26/2018 None Alleviating Factors medication 10/26/2018 None Exacerbating Factors diet 10/26/2018 None Onset and Resolution gradual in onset 10/26/2018 None Quality chronic 10/26/2018 None Quality primary hypertension 10/26/2018 None Onset and Resolution ongoing 10/26/2018 None Onset of Symptom during adulthood 10/26/2018 None Blood Pressure Values not checking blood pressure at home 10/26/2018 None Alleviating Factors medication 10/26/2018 None Pertinent Findings edema 10/26/2018 -chronic Quality chronic 10/26/2018 None Onset and Resolution ongoing 10/26/2018 None Alleviating Factors medication 10/26/2018 None Test results Pt checking blood glucose readings, did not bring results to clinic 10/26/2018 None Glucose monitoring occasional glucose testing 10/26/2018 None Location on the right foot 10/26/2018 None Quality numbness 10/26/2018 None Quality intermittent 10/26/2018 None Onset and Resolution ongoing 10/26/2018 None Frequency of Episodes weekly 10/26/2018 (three times per week) Onset of Symptom several months ago 10/26/2018 None Triggers no known associated factors 10/26/2018 None vaccination against influenza Location deltoid- Lt 07/27/2018 None diabetes mellitus Quality non-insulin dependent 07/20/2018 None diabetes mellitus Severity mild 07/20/2018 None diabetes mellitus Significant Medical Conditions diabetic neuropathy 07/20/2018 None diabetes mellitus Alleviating Factors diet 07/20/2018 None diabetes mellitus Nutrition ADA diet 07/20/2018 None diabetes mellitus Pertinent Findings Denies dizziness 07/20/2018 None diabetes mellitus Pertinent Findings Denies dyspnea 07/20/2018 None diabetes mellitus Onset of Symptom onset as an adult 07/20/2018 None diabetes mellitus Quality chronic 07/20/2018 None hyperlipidemia Onset and Resolution gradual in onset 07/20/2018 None hyperlipidemia Onset of Symptom during adulthood 07/20/2018 None hyperlipidemia Alleviating Factors medication 07/20/2018 None hyperlipidemia Exacerbating Factors diet 07/20/2018 None hypothyroid Quality chronic 07/20/2018 None hypothyroid Onset and Resolution ongoing 07/20/2018 None hypothyroid Alleviating Factors medication 07/20/2018 None hypertension Quality chronic 07/20/2018 None hypertension Quality primary hypertension 07/20/2018 None hypertension Onset and Resolution ongoing 07/20/2018 None hypertension Onset of Symptom during adulthood 07/20/2018 None hypertension Alleviating Factors medication 07/20/2018 None diabetes mellitus Test results Pt checking blood glucose readings, did not bring results to clinic 07/20/2018 None diabetes mellitus Glucose monitoring occasional glucose testing 07/20/2018 None hypertension Blood Pressure Values not checking blood pressure at home 07/20/2018 None hypertension Pertinent Findings edema 07/20/2018 -chronic diabetes mellitus Quality non-insulin dependent 04/14/2018 None diabetes mellitus Severity mild 04/14/2018 None diabetes mellitus Significant Medical Conditions diabetic neuropathy 04/14/2018 None diabetes mellitus Alleviating Factors diet 04/14/2018 None diabetes mellitus Nutrition ADA diet 04/14/2018 None diabetes mellitus Pertinent Findings Denies dizziness 04/14/2018 None diabetes mellitus Pertinent Findings Denies dyspnea 04/14/2018 None diabetes mellitus Onset of Symptom onset as an adult 04/14/2018 None hyperlipidemia Frequency of Episodes yearly 04/14/2018 None hyperlipidemia Pertinent Findings Denies nausea 04/14/2018 None hyperlipidemia Pertinent Findings obesity 04/14/2018 None hyperlipidemia Pertinent Findings weight loss 04/14/2018 None diabetes mellitus Glucose monitoring does not test 04/14/2018 None diabetes mellitus Glucose monitoring occasional glucose testing 04/14/2018 random testing or if she eats something carb or new diabetes mellitus Test results HgbA1c level 55.1 04/14/2018 None diabetes mellitus Quality non-insulin dependent 02/06/2018 None diabetes mellitus Severity mild 02/06/2018 None diabetes mellitus Significant Medical Conditions diabetic neuropathy 02/06/2018 None diabetes mellitus Alleviating Factors diet 02/06/2018 None diabetes mellitus Nutrition ADA diet 02/06/2018 None diabetes mellitus Pertinent Findings Denies dizziness 02/06/2018 None diabetes mellitus Pertinent Findings Denies dyspnea 02/06/2018 None diabetes mellitus Onset of Symptom onset as an adult 02/06/2018 None diabetes mellitus Quality non-insulin dependent 01/12/2018 None diabetes mellitus Severity mild 01/12/2018 None diabetes mellitus Significant Medical Conditions diabetic neuropathy 01/12/2018 None diabetes mellitus Alleviating Factors diet 01/12/2018 None diabetes mellitus Nutrition ADA diet 01/12/2018 None diabetes mellitus Pertinent Findings Denies dizziness 01/12/2018 None diabetes mellitus Pertinent Findings Denies dyspnea 01/12/2018 None diabetes mellitus Onset of Symptom onset as an adult 01/12/2018 None hypertension Quality primary hypertension 01/12/2018 None hypertension Onset and Resolution ongoing 01/12/2018 None hypertension Onset of Symptom during adulthood 01/12/2018 None hypertension Blood Pressure Values not checking blood pressure at home 01/12/2018 None hypertension Severity mild 01/12/2018 None hypertension Alleviating Factors medication 01/12/2018 None hypertension Pertinent Findings Denies dizziness 01/12/2018 None hypertension Pertinent Findings Denies dyspnea 01/12/2018 None hypertension Pertinent Findings Denies edema 01/12/2018 -Wears knee high compression stockings hypothyroid Onset and Resolution ongoing 01/12/2018 None hypothyroid Alleviating Factors medication 01/12/2018 None hyperlipidemia Onset of Symptom during adulthood 01/12/2018 None hyperlipidemia Severity moderate 01/12/2018 - pt stopped the statin due to myalgias- hyperlipidemia Alleviating Factors medication 01/12/2018 None hyperlipidemia Exacerbating Factors diet 01/12/2018 None hyperlipidemia Quality increased cholesterol 01/12/2018 None hyperlipidemia Quality increased TG 01/12/2018 None hyperlipidemia Onset and Resolution gradual in onset 01/12/2018 None hyperlipidemia Onset and Resolution ongoing 01/12/2018 None diabetes mellitus Test results Pt not checking blood glucose readings at home 01/12/2018 None diabetes mellitus Glucose monitoring occasional glucose testing 01/12/2018 None hypertension Pertinent Findings Denies anxiety 01/12/2018 None hypertension Pertinent Findings Denies decreased energy 01/12/2018 None diabetes mellitus Test results HgbA1c level 5.0 01/12/2018 None diabetes mellitus Quality non-insulin dependent 08/04/2017 None diabetes mellitus Severity mild 08/04/2017 None diabetes mellitus Significant Medical Conditions diabetic neuropathy 08/04/2017 None diabetes mellitus Alleviating Factors diet 08/04/2017 None diabetes mellitus Nutrition ADA diet 08/04/2017 None diabetes mellitus Pertinent Findings Denies dizziness 08/04/2017 None diabetes mellitus Pertinent Findings Denies dyspnea 08/04/2017 None diabetes mellitus Onset of Symptom onset as an adult 08/04/2017 None hypertension Onset and Resolution ongoing 08/04/2017 None hypertension Onset of Symptom during adulthood 08/04/2017 None hypertension Blood Pressure Values not checking blood pressure at home 08/04/2017 None hypertension Severity mild 08/04/2017 None hypertension Alleviating Factors medication 08/04/2017 None hypertension Pertinent Findings Denies dizziness 08/04/2017 None hypertension Pertinent Findings Denies dyspnea 08/04/2017 None hypertension Pertinent Findings edema 08/04/2017 -Wears knee high compression stockings hypothyroid Onset and Resolution ongoing 08/04/2017 None hypothyroid Alleviating Factors medication 08/04/2017 None hyperlipidemia Onset and Resolution gradual in onset 08/04/2017 None hyperlipidemia Onset and Resolution ongoing 08/04/2017 None hyperlipidemia Onset of Symptom during adulthood 08/04/2017 None hyperlipidemia Severity moderate 08/04/2017 - pt stopped the statin due to myalgias- hyperlipidemia Alleviating Factors medication 08/04/2017 None hyperlipidemia Exacerbating Factors diet 08/04/2017 None hyperlipidemia Quality increased cholesterol 08/04/2017 None hyperlipidemia Quality increased TG 08/04/2017 None hypertension Quality primary hypertension 08/04/2017 None abdominal pain Quality aching 08/04/2017 and pressure abdominal pain Quality acute 08/04/2017 None abdominal pain Radiating the back 08/04/2017 None abdominal pain Location in the LUQ 08/04/2017 None abdominal pain Location in the RUQ 08/04/2017 None abdominal pain Onset and Resolution ongoing 08/04/2017 None abdominal pain Onset of Symptom 2+ weeks ago 08/04/2017 None abdominal pain Pertinent Findings nausea 08/04/2017 None abdominal pain Pertinent Findings Denies vomiting 08/04/2017 None abdominal pain Pertinent Findings back pain 08/04/2017 None diabetes mellitus Test results Pt checking blood glucose readings, did not bring results to clinic 08/04/2017 None diabetes mellitus Glucose monitoring occasional glucose testing 08/04/2017 None abdominal pain Location in the suprapubic area 07/19/2017 None abdominal pain Quality aching 07/19/2017 None abdominal pain Quality acute 07/19/2017 None abdominal pain Quality cramping 07/19/2017 None abdominal pain Radiating the back 07/19/2017 None abdominal pain Pertinent Findings bloating 07/19/2017 None abdominal pain Pertinent Findings diverticulosis 07/19/2017 None abdominal pain Pertinent Findings dyspepsia 07/19/2017 None abdominal pain Pertinent Findings fever 07/19/2017 None abdominal pain Triggers no known associated factors 07/19/2017 None abdominal pain Triggers meals 07/19/2017 None abdominal pain Onset and Resolution ongoing 07/19/2017 None abdominal pain Onset of Symptom 6 days ago 07/19/2017 None abdominal pain Limitation on Activities does not limit activities 07/19/2017 None abdominal pain Timing of Episodes in the afternoon 07/19/2017 None diabetes mellitus Quality non-insulin dependent 05/05/2017 None diabetes mellitus Nutrition ADA diet 05/05/2017 None diabetes mellitus Onset of Symptom onset as an adult 05/05/2017 None diabetes mellitus Severity mild 05/05/2017 None diabetes mellitus Test results HgbA1c level 5.1 05/05/2017 None diabetes mellitus Significant Medical Conditions diabetic neuropathy 05/05/2017 None diabetes mellitus Alleviating Factors diet 05/05/2017 None diabetes mellitus Pertinent Findings Denies dizziness 05/05/2017 None diabetes mellitus Pertinent Findings Denies dyspnea 05/05/2017 None hypertension Quality stable 01/27/2017 None hypertension Onset and Resolution ongoing 01/27/2017 None hypertension Onset of Symptom during adulthood 01/27/2017 None hypertension Blood Pressure Values not checking blood pressure at home 01/27/2017 None hypertension Severity mild 01/27/2017 None hypertension Alleviating Factors medication 01/27/2017 None hypertension Pertinent Findings Denies dizziness 01/27/2017 -Not since the coughing has stopped hypertension Pertinent Findings Denies dyspnea 01/27/2017 None hypertension Pertinent Findings edema 01/27/2017 -Wears knee high compression stockings hypothyroid Onset and Resolution ongoing 01/27/2017 None hypothyroid Alleviating Factors medication 01/27/2017 None hyperlipidemia Onset and Resolution gradual in onset 01/27/2017 None hyperlipidemia Onset and Resolution ongoing 01/27/2017 None hyperlipidemia Onset of Symptom during adulthood 01/27/2017 None hyperlipidemia Severity moderate 01/27/2017 - pt stopped the statin due to myalgias, - hyperlipidemia Alleviating Factors medication 01/27/2017 None hyperlipidemia Exacerbating Factors diet 01/27/2017 None cough Quality intermittent 01/27/2017 None cough Onset and Resolution ongoing 01/27/2017 None cough Quality acute 01/27/2017 None cough Onset of Symptom 3 weeks ago 01/27/2017 None cough Quality improving 01/27/2017 None cough Pertinent Findings hoarseness 01/27/2017 None cough Pertinent Findings Denies fever 01/27/2017 None cough Pertinent Findings Denies chills 01/27/2017 None cough Pertinent Findings Denies lethargy 01/27/2017 None hyperlipidemia Quality increased cholesterol 01/27/2017 None hyperlipidemia Quality increased TG 01/27/2017 None hypertension Quality stable 07/15/2016 None hypertension Onset and Resolution ongoing 07/15/2016 None hypertension Onset of Symptom during adulthood 07/15/2016 None hypertension Blood Pressure Values not checking blood pressure at home 07/15/2016 None hypertension Severity mild 07/15/2016 None hypertension Alleviating Factors medication 07/15/2016 None hypertension Pertinent Findings Denies dizziness 07/15/2016 None hypertension Pertinent Findings Denies dyspnea 07/15/2016 None hypertension Pertinent Findings edema 07/15/2016 -improved with the use of knee high compression stockings hypothyroid Onset and Resolution ongoing 07/15/2016 None hypothyroid Alleviating Factors medication 07/15/2016 None hyperlipidemia Onset and Resolution gradual in onset 07/15/2016 None hyperlipidemia Onset and Resolution ongoing 07/15/2016 None hyperlipidemia Onset of Symptom during adulthood 07/15/2016 None hyperlipidemia Severity moderate 07/15/2016 - pt stopped the statin due to myalgias, - hyperlipidemia Exacerbating Factors diet 07/15/2016 None hyperlipidemia Alleviating Factors medication 07/15/2016 None hypertension Quality stable 03/16/2016 None hypertension Onset and Resolution ongoing 03/16/2016 None hypertension Severity mild 03/16/2016 None hypertension Triggers no known associated factors 03/16/2016 None hypertension Alleviating Factors medication 03/16/2016 None hypertension Onset of Symptom during adulthood 03/16/2016 None hypertension Blood Pressure Values not checking blood pressure at home 03/16/2016 None hypertension Pertinent Findings Denies dizziness 03/16/2016 None hypertension Pertinent Findings Denies dyspnea 03/16/2016 None hypertension Pertinent Findings edema 03/16/2016 -has improved with the use of knee high compression stockings hypothyroid Onset and Resolution ongoing 03/16/2016 None hypothyroid Alleviating Factors medication 03/16/2016 None fatigue Onset and Resolution ongoing 03/16/2016 None fatigue Onset of Symptom months ago 03/16/2016 None hyperlipidemia Onset and Resolution gradual in onset 03/16/2016 None hyperlipidemia Onset and Resolution ongoing 03/16/2016 None hyperlipidemia Onset of Symptom during adulthood 03/16/2016 None hyperlipidemia Exacerbating Factors diet 03/16/2016 None hyperlipidemia Severity moderate 03/16/2016 - pt stopped the statin due to myalgias, - fatigue Onset and Resolution gradual in onset 09/15/2015 None fatigue Onset and Resolution ongoing 09/15/2015 None hypertension Quality stable 09/15/2015 None hypertension Onset and Resolution ongoing 09/15/2015 None hypertension Alleviating Factors medication 09/15/2015 None hypertension Severity mild 09/15/2015 None hypertension Triggers no known associated factors 09/15/2015 None diabetes mellitus Quality non-insulin dependent 03/17/2015 None diabetes mellitus Test results Pt checking blood glucose at home, see scanned readings 03/17/2015 None diabetes mellitus Glucose monitoring occasional glucose testing 03/17/2015 tests three times a week diabetes mellitus Exercise minimal exercise 03/17/2015 None diabetes mellitus Test results HgbA1c level 5.1 03/17/2015 None diabetes mellitus Alleviating Factors medication 03/17/2015 None diabetes mellitus Nutrition ADA diet 03/17/2015 None diabetes mellitus Onset of Symptom onset as an adult 03/17/2015 None Advance Directives No Advance Directive data Encounters Encounter Performer Location Codes Date ([id number]) [id number] EST. PATIENT, LEVEL III Diagnosis: Pain in left arm[ICD10: M79.602] Delmis Bermudez MD, [facility] CPT- 4: 59572 02/20/2019 ([id number]) [id number] EST. PATIENT, LEVEL IV Diagnosis: Essential (primary) hypertension[ICD10: I10] Diagnosis: Type 2 diabetes mellitus without complications[ICD10: E11.9] Diagnosis: Paroxysmal atrial fibrillation[ICD10: I48.0] Delmis Bermudez MD, [facility] CPT-4: 18700 01/23/2019 ([id number]) Miscellaneous no charge Diagnosis: Paroxysmal atrial fibrillation[ICD10: I48.0] Delmis Bermudez MD, [facility] CPT-4: 80319 12/22/2018 ([id number]) [id number] EST. PATIENT, LEVEL IV Diagnosis: Paroxysmal atrial fibrillation[ICD10: I48.0] Diagnosis: Hypothyroidism, unspecified[ICD10: E03.9] Diagnosis: Essential (primary) hypertension[ICD10: I10] Ria Bermudez MD, [facility] CPT-4: 93931 12/19/2018 ([id number]) [id number] EST. PATIENT, LEVEL IV Diagnosis: Essential (primary) hypertension[ICD10: I10] Diagnosis: Type 2 diabetes mellitus with diabetic polyneuropathy[ICD10: E11.42] Diagnosis: Hypothyroidism, unspecified[ICD10: E03.9] Diagnosis: Mixed hyperlipidemia[ICD10: E78.2] Diagnosis: Lumbago with sciatica, right side[ICD10: M54.41] Delmis Bermudez MD, [facility] CPT-4: 87845 10/26/2018 ([id number]) [id number] EST. PATIENT, LEVEL IV Diagnosis: Type 2 diabetes mellitus with diabetic polyneuropathy[ICD10: E11.42] Diagnosis: Mixed hyperlipidemia[ICD10: E78.2] Diagnosis: Essential (primary) hypertension[ICD10: I10] Diagnosis: Vitamin D deficiency, unspecified[ICD10: E55.9] Diagnosis: Hypothyroidism, unspecified[ICD10: E03.9] Delmis Bermudez MD, [facility] CPT-4: 62268 07/20/2018 ([id number]) [id number] EST. PATIENT, LEVEL IV Diagnosis: Essential (primary) hypertension[ICD10: I10] Diagnosis: Hypothyroidism, unspecified[ICD10: E03.9] Diagnosis: Mixed hyperlipidemia[ICD10: E78.2] Delmis Bermudez MD, [facility] CPT- 4: 69612 04/14/2018 ([id number]) [id number] EST. PATIENT, LEVEL III Diagnosis: Type 2 diabetes mellitus with diabetic polyneuropathy[ICD10: E11.42] Delmis Bermudez MD [facility] CPT-4: 85576 02/06/2018 ([id number]) [id number] EST. PATIENT, LEVEL IV Diagnosis: Mixed hyperlipidemia[ICD10: E78.2] Diagnosis: Hypothyroidism, unspecified[ICD10: E03.9] Diagnosis: Type 2 diabetes mellitus without complications[ICD10: E11.9] Delmis Bermudez MD, [facility] CPT-4: 36391 01/12/2018 ([id number]) [id number] EST. PATIENT, LEVEL IV Diagnosis: Essential (primary) hypertension[ICD10: I10] Diagnosis: Mixed hyperlipidemia[ICD10: E78.2] Diagnosis: Hypothyroidism, unspecified[ICD10: E03.9] Diagnosis: Type 2 diabetes mellitus without complications[ICD10: E11.9] Diagnosis: Encounter for immunization[ICD10: Z23] Delmis Bermudez MD, [facility] CPT-4: 55177 08/04/2017 ([id number]) [id number] EST. PATIENT, LEVEL III Diagnosis: Diverticulitis of large intestine without perforation or abscess without bleeding[ICD10: K57.32] Delmis Bermudez MD, [facility] CPT-4: 05604 07/19/2017 ([id number]) [id number] EST. PATIENT, LEVEL III Diagnosis: Type 2 diabetes mellitus with diabetic polyneuropathy[ICD10: E11.42] Delmis Bermudez MD, [facility] CPT-4: 04570 05/05/2017 ([id number]) [id number] EST. PATIENT, LEVEL IV Diagnosis: Essential (primary) hypertension[ICD10: I10] Diagnosis: Type 2 diabetes mellitus without complications[ICD10: E11.9] Diagnosis: Mixed hyperlipidemia[ICD10: E78.2] Diagnosis: Allergic rhinitis due to pollen[ICD10: J30.1] Ria Bermudez MD, [facility] CPT-4: 98437 01/27/2017 ([id number]) [id number] EST. PATIENT, LEVEL IV Diagnosis: Type 2 diabetes mellitus without complications[ICD10: E11.9] Diagnosis: Essential (primary) hypertension[ICD10: I10] Diagnosis: Mixed hyperlipidemia[ICD10: E78.2] [facility] CPT- 4: 38377 07/15/2016 ([id number]) [id number] EST. PATIENT, LEVEL IV Diagnosis: Type 2 diabetes mellitus without complications[ICD10: E11.9] Diagnosis: Polyneuropathy, unspecified[ICD10: G62.9] Diagnosis: Mixed hyperlipidemia[ICD10: E78.2] [facility] CPT- 4: 62121 03/16/2016 ([id number]) [id number] EST. PATIENT, LEVEL IV Diagnosis: Type 2 diabetes mellitus without complications[ICD10: E11.9] Diagnosis: Essential (primary) hypertension[ICD10: I10] Diagnosis: Vitamin D deficiency, unspecified[ICD10: E55.9] Diagnosis: Mixed hyperlipidemia[ICD10: E78.2] Ria Bermudez MD, [facility] CPT- 4: 71908 09/15/2015 ([id number]) OFFICE VISIT, NEW - LEVEL 4 Diagnosis: ESSENTIAL HYPERTENSION[ICD9: 401.9] Diagnosis: Diabetes mellitus type 2, controlled[ICD9: 250.00] Diagnosis: Peripheral neuropathy[ICD9: 356.9] Delmis Bermudez MD, [facility] CPT- 4: 71759 03/17/2015 Plan of Care Planned Activity Notes Codes Status Date Visit Plan: Left arm pain -recommend EKG and cardiac enzymes to r/o acute OH -instructed patient to monitor symptoms and call if do no resolve or if any worse -instructed her we will call with results of testing. Patient verbalized understanding of plan. 02/20/2019 Patient Education: Patient Medication Summary Completed 02/20/2019 Visit Plan: Hypertension - well controlled - continue with current medications, continue with no added salt diet. Pt has been encouraged to exercise daily. The pt has been advised to call the office if there are any acute concerns about change in blood pressure readings at home. Afib-rate controlled-continue follow up with cardiology Diabetes Mellitus - I have recommended for the patient to have follow up labs prior to the next office visit. The patient has been instructed to continue with current medications as previously directed, continue with regular FSBS monitoring to assure continued control of diabetes. Pt to call for any acute concerns, complaints, or if the blood glucose readings are starting to become less controlled. 01/23/2019 Appointment: Delmis Her WPtel: [facility] (15 min) Moderate 01/23/2019 Patient Education: Patient Medication Summary Completed 01/23/2019 Patient Education: Diabetes Completed 01/23/2019 Appointment: Delmis Her WPtel: [address] [place] [address] (30 min) Complex 01/22/2019 Referral: Lindsey Poole She needs to arrive 15 minutes early. Patient informed. Completed 01/04/2019 Visit Plan: Afib -patient is doing MUCH better -heart sounds regular today -shortness of breath, dizziness and nausea have resolved - continue same meds and follow up with personal lines insurance advisor as scheduled. Patient verba lized understanding of plan. 12/22/2018 Appointment: Delmis Her WPtel: [address] [place], [place] [phone] [place] [address] (30 min) Complex 12/22/2018 Patient Education: Patient Medication Summary Completed 12/22/2018 Visit Plan: Atrial Fibrillation -new onset-Dr Bermudez in to evaluate patient- will start patient on cardizem cd and eliquis -get EKG and labs today- schedule echo and refer to cardiology-instructed patient and her to go to ER if symptoms worsen or do not improve -patient and verbalized understanding of plan. Hypothyroidism-check labs today FKZ-yhcprdrgbr-gxwaroeu to monitor 12/19/2018 Visit Plan: Atrial Fibrillation -new onset-Dr Bermudez in to evaluate patient- will start patient on cardizem cd and eliquis -get EKG and labs today- schedule echo and refer to cardiology-instructed patient and her to go to ER if symptoms worsen or do not improve -patient and verbalized understanding of plan. Hypothyroidism-check labs today BCO-clhzxnraze-weiptnku to monitor 12/19/2018 Visit Plan: Atrial Fibrillation -new onset-Dr Bermudez in to evaluate patient- will start patient on cardizem cd and eliquis -get EKG and labs today- schedule echo and refer to cardiology-instructed patient and her to go to ER if symptoms worsen or do not improve -patient and verbalized understanding of plan. Hypothyroidism-check labs today FTF-ivssfjfywm-ikgbsthq to monitor 12/19/2018 Appointment: Delmis Her WPtel[phone] (30 min) [facility] 12/19/2018 Patient Education: Patient Medication Summary Completed 12/19/2018 Patient Education: Elibarryis - 18+ - No HI [place] Completed 12/19/2018 Care Plan: Cbc With Differential Pending 12/19/2018 Care Plan: Comp Metabolic Pending 12/19/2018 Care Plan: Tsh Pending 12/19/2018 Care Plan: Free T4 Pending 12/19/2018 Care Plan: Referral Order SNOMED-CT : [id number] Pending 12/19/2018 Visit Plan: Hypertension - well controlled - continue with current medications, continue with no added salt diet. Pt has been encouraged to exercise daily. The pt has been advised to call the office if there are any acute concerns about change in blood pressure readings at home. Diabetes Mellitus - controlled - per recent FSBS reports. I have recommended for the patient to have follow up labs prior to the next office visit. The patient has been instructed to continue with current medications as previously directed, continue with regular FSBS monitoring to assure continued control of diabetes. Pt to call for any acute concerns, complaints, or if the blood glucose readings are starting to become less controlled. Hypothyroidism - pt with chronic hypothyroidism, continue with current medication, will monitor pt to signs or symptoms of lack of adequate supplementation. Pt is to continue with current dose of medication unless directed otherwise. Check labs at regular intervals q 3 months or q 6 months based on previous levels of control. Hyperlipidemia - pt has been counseled about appropriate diet, exercise, and need for low fat food choices. I have discussed the need for the patient to take medications as pre scribed. If the patient has negative side effects from the medication, they are to CALL the office and not abruptly discontinue the medication without discussion with a practitioner in the office. We will check labs in 3-6 months for follow up on the patient's chronic medical problem and to assure normal liver response to medications. Sciatica- back exercises discussed with the patient. Pt is to call if the symptoms do not improve or if they worsen. 10/26/2018 Appointment: Delmis Her [facility]Ptel[facility] [phone] [phone] (15 min) Moderate 10/26/2018 Patient Education: Patient Medication Summary Completed 10/26/2018 Patient Education: Cholesterol Management Completed 10/26/2018 Patient Education: Patient Medication Summary Completed 08/15/2018 Appointment: Injection 07/27/2018 Patient Education: Patient Medication Summary Completed 07/27/2018 Visit Plan: Hypertension - well controlled - continue with current medications, continue with no added salt diet. Pt has been encouraged to exercise daily. The pt has been advised to call the office if there are any acute concerns about change in blood pressure readings at home. Diabetes Mellitus - I have recommended for the patient to have follow up labs prior to the next office visit. The patient has been instructed to continue with current medications as previously directed, continue with regular FSBS monitoring to assure continued control of diabetes. Pt to call for any acute concerns, complaints, or if the blood glucose readings are starting to become less controlled. Hyperlipidemia - pt has been counseled about appropriate diet, exercise, and need for low fat food choices. I have discussed the need for the patient to take medications as prescribed. If the patient has negative side effects from the medication, they are to CALL the office and not abruptly discontinue the medication without discussion with a practitioner in the office. We will check labs in 3-6 months for follow up on the patient's chronic medical problem and to assure normal liver response to medications. Hypothyroidism - pt with chronic hypothyroidism, continue with current medication, will monitor pt to signs or symptoms of lack of adequate supplementation. Pt is to continue with current dose of medication unless directed otherwise. Check labs at regular intervals q 3 months or q 6 months based on previous levels of control. 07/20/2018 Appointment: Delmis Her [facility]Ptel[facility] [phone] [phone] [place] (15 min) Moderate 07/20/2018 Patient Education: Patient Medication Summary Completed 07/20/2018 Patient Education: Cholesterol Management Completed 07/20/2018 Care Plan: Cbc With Differential Pending 07/20/2018 Visit Plan: Hypertension - well controlled - continue with current medications, continue with no added salt diet. Pt has been encouraged to exercise daily. The pt has been advised to call the office if there are any acute concerns about change in blood pressure readings at home. Hypothyroidism - pt with chronic hypothyroidism, continue with current medication, will monitor pt to signs or symptoms of lack of adequate supplementation. Pt is to continue with current dose of medication unless directed otherwise. Check labs at regular intervals wither q 3 months or q 6 months based on previous levels of control. H yperlipidemia-patient stopped crestor due to myalgias- discussed alternative - patient will consider zetia 10mg daily and call if she wants to start it 04/14/2018 Appointment: Delmis Her [facility]Ptel[facility] [phone] [phone] (15 min) Moderate 04/14/2018 Patient Education: Patient Medication Summary Completed 04/14/2018 Visit Plan: Diabetic peripheral neuropathy -paperwork for diabetic shoes completed today in the office and will fax to Dr Briscoe's office- Patient verbalized understanding of plan. 02/06/2018 Appointment: Delmis Her WPtel[facility] [phone] [phone] (15 min) Moderate 02/06/2018 Patient Education: Patient Medication Summary Completed 02/06/2018 Visit Plan: Hyperlipidemia - pt has been counseled about appropriate diet, exercise, and need for low fat food choices. I have discussed the need for the patient to take medications as prescribed. We will check labs in 3-6 months for follow up on the patient's chronic medical problem and to assure normal liver response to medications. Patient is intolerant to statins-will monitor cholesterol -continue low fat diet. Diabetes Mellitus -diet controlled- I have recommended for the patient to have follow up labs prior to the next office visit. The patient has been instructed to continue with current medications as previously directed, continue with regular FSBS monitoring to assure continued control of diabetes. Pt to call for any acute concerns, complaints, or if the blood glucose readings are starting to become less controlled. Hypothyroidism - pt with chronic hypothyroidism, continue with current medication, will monitor pt to signs or symptoms of lack of adequate supplementation. Pt is to continue with current dose of medication unless directed otherwise. Check labs at regular intervals wither q 3 months or q 6 months based on previous levels of control. 01/12/2018 Appointment: Delmis Her WPtel: [phone] [phone] (30 min) Complex 01/12/2018 Patient Education: Patient Medication Summary Completed 01/12/2018 Patient Education: Patient Medication Summary Completed 08/05/2017 Visit Plan: Hypertension - well controlled - continue with current medications, continue with no added salt diet. Pt has been encouraged to exercise daily. The pt has been advised to call the office if there are any acute concerns about change in blood pressure readings at home. Hypothyroidism - pt with chronic hypothyroidism, continue with current medication, will monitor pt to signs or symptoms of lack of adequate supplementation. Pt is to continue with current dose of medication unless directed otherwise. Check labs at regular intervals wither q 3 months or q 6 months based on previous levels of control. H yperlipidemia - pt has been counseled about appropriate diet, exercise, and need for low fat food choices. I have discussed the need for the patient to take medications as prescribed. If the patient has negative side effects from the medication, they are to CALL the office and not abruptly discontinue the medication without discussion with a practitioner in the office. We will check labs in 3-6 months for follow up on the patient's chronic medical problem and to assure normal liver response to medications. 08/04/2017 Appointment: Delmis Her WPtel: [phone] [phone] (30 min) Complex 08/04/2017 Patient Education: Patient Medication Summary Completed 08/04/2017 Patient Education: Obesity Completed 08/04/2017 Care Plan: %Hba1C LOINC : [id number] Pending 08/04/2017 Visit Plan: Diverticulitis - rx for antibiotic sent to pt's pharmacy - pt advised to avoid seeds, nuts, popcorn, or any other food which has been proven to upset the pt's stomach. Call if symptoms do not improve or if any worse and we will check labs and CT scan. Patient verbalized understanding of plan. 07/19/2017 Appointment: Delmis Her WPtel[facility] [phone] [phone] (30 min) Complex 07/19/2017 Patient Education: Patient Medication Summary Completed 07/19/2017 Patient Education: Obesity Completed 07/19/2017 Visit Plan: Diabetic peripheral neuropathy - diabetes paperwork completed today in the office-patient does want to start medication-RX for gabapentin sent electronically and provided and instructed on use. Patient verbalized understanding of plan. 05/05/2017 Appointment: Delmis Her WPtel: [phone] [phone] (30 min) Complex 05/05/2017 Patient Education: Patient Medication Summary Completed 05/05/2017 Patient Education: Obesity Completed 05/05/2017 Appointment: Delmis Her WPtel: [phone] [facility] - Annual Wellness Visit 01/28/2017 Visit Plan: Hypertension - well controlled - continue with current medications, continue with no added salt diet. Pt has been encouraged to exercise daily. The pt has been advised to call the office if there are any acute concerns about change in blood pressure readings at home. Hyperlipidemia - pt has been counseled about appropriate diet, exercise, and need for low fat food choices. I have discussed the need for the patient to take medications as prescribed. If the patient has negative side effects from the medication, they are to CALL the office and not abruptly discontinue the medication without discussion with a practitioner in the office. We will check labs in 3-6 months for follow up on the patient's chronic medical problem and to assure normal liver response to medications. Decrease cheese intake. Pt is not interested in starting on Zetia at this time. Vitamin D level was little low - increase up to 5000 units daily. Allergies - shot of kenalog 01/27/2017 Appointment: Ria Bermudez WPtel: [phone] [phone] (15 min) Moderate 01/27/2017 Patient Education: Patient Medication Summary Completed 01/27/2017 Patient Education: Obesity Completed 01/27/2017 Appointment: Ria Bermudez WPtel: [phone] [phone] (15 min) Moderate 01/11/2017 Visit Plan: Hypertension - well controlled - continue with current medications, continue with no added salt diet. Pt has been encouraged to exercise daily. The pt has been advised to call the office if there are any acute concerns about change in blood pressure readings at home. Diabetes Mellitus - controlled - per recent FSBS reports. I have recommended for the patient to have follow up labs prior to the next office visit. The patient has been instructed to continue with current medications as previously directed, continue with regular FSBS monitoring to assure continued control of diabetes. Pt to call for any acute concerns, complaints, or if the blood glucose readings are starting to become less controlled. Hyperlipidemia - pt has been counseled about appropriate diet, exercise, and need for low fat food choices. I have discussed the need for the patient to take medications as prescribed. If the patient has negative side effects from the medication, they are to CALL the office and not abruptly discontinue the medication without discussion with a practitioner in the office. We will check labs in 3-6 months for follow up on the patient's chronic medical problem and to assure normal liver response to me dications. 07/15/2016 Appointment: [facility]erm[facility]el[facility] [phone] [phone] (15 min) Moderate 07/15/2016 Patient Education: Patient Medication Summary Completed 07/15/2016 Patient Education: Obesity Completed 07/15/2016 Patient Education: Hypertension Completed 07/15/2016 Visit Plan: Diabetes Mellitus - controlled - per recent FSBS reports. I have recommended for the patient to have follow up labs prior to the next office visit. The patient has been instructed to continue with current medications as previously directed, continue with regular FSBS monitoring to assure continued control of diabetes. Pt to call for any acute concerns, complaints, or if the blood glucose readings are starting to become less controlled. Hyperlipidemia - pt has been counseled about appropriate diet, exercise, and need for low fat food choices. I have discussed the need for the patient to take medications as prescribed. If the patient has negative side effects from the medication, they are to CALL the office and not abruptly discontinue the medication without discussion with a practitioner in the office. We will check labs in 3-6 months for follow up on the patient's chronic medical problem and to assure normal liver response to medications. Peripheral neuropathy - pt not interested in treatment at this time. 03/16/2016 Appointment: Ria Bermudez WPtel: [phone] [phone] [place] (15 min) Moderate 03/16/2016 Patient Education: Patient Medication Summary Completed 03/16/2016 Patient Education: Obesity Completed 03/16/2016 Patient Education: Patient Medication Summary Completed 02/20/2016 Visit Plan: Diabetes Mellitus - controlled - per recent FSBS reports. I have recommended for the patient to have follow up labs prior to the next office visit. The patient has been instructed to continue with current medications as previously directed, continue with regular FSBS monitoring to assure continued control of diabetes. Pt to call for any acute concerns, complaints, or if the blood glucose readings are starting to become less controlled. Hypertension - well controlled - continue with current medications, continue with no added salt diet. Pt has been encouraged to exercise daily. The pt has been advised to call the office if there are any acute concerns about change in blood pressure readings at home. Hyperlipidemia - pt had to stop her cholesterol medication due to muscle aches from her cholesterol medication. She is due for labs today. She states that she has been active cooking and taking care of her parents who are in their lat 80's. 09/15/2015 Patient Education: Patient Medication Summary Completed 09/15/2015 Patient Education: Hypertension Completed 09/15/2015 Visit Plan: Hypertension - well controlled - continue with current medications, continue with no added salt diet. Pt has been encouraged to exercise daily. The pt has been advised to call the office if there are any acute concerns about change in blood pressure readings at home. Diabetes Mellitus - controlled - per recent FSBS reports. I have recommended for the patient to have follow up labs prior to the next office visit. The patient has been instructed to continue with current medications as previously directed, continue with regular FSBS monitoring to assure continued control of diabetes. Pt to call for any acute concerns, complaints, or if the blood glucose readings are starting to become less controlled. Peripheral aqllpowpoo-YJ-raiaykif foot exam today in the office and paperwork completed for diabetic shoes-see scanned document 03/17/2015 Visit Plan: Hypertension - well controlled - continue with current medications, continue with no added salt diet. Pt has been encouraged to exercise daily. The pt has been advised to call the office if there are any acute concerns about change in blood pressure readings at home. Diabetes Mellitus - controlled - per recent FSBS reports. I have recommended for the patient to have follow up labs prior to the next office visit. The patient has been instructed to continue with current medications as previously directed, continue with regular FSBS monitoring to assure continued control of diabetes. Pt to call for any acute concerns, complaints, or if the blood glucose readings are starting to become less controlled. Peripheral gyucofnnbe-SU-gvveculd foot exam today in the office and paperwork completed for diabetic shoes-see scanned document 03/17/2015 Visit Plan: Hypertension - well controlled - continue with current medications, continue with no added salt diet. Pt has been encouraged to exercise daily. The pt has been advised to call the office if there are any acute concerns about change in blood pressure readings at home. Diabetes Mellitus - controlled - per recent FSBS reports. I have recommended for the patient to have follow up labs prior to the next office visit. The patient has been instructed to continue with current medications as previously directed, continue with regular FSBS monitoring to assure continued control of diabetes. Pt to call for any acute concerns, complaints, or if the blood glucose readings are starting to become less controlled. Peripheral lrxdlokilg-WZ-dvqbbqij foot exam today in the office and paperwork completed for diabetic shoes-see scanned document 03/17/2015 Appointment: Ria Bermudez WPtel: [phone] [phone] [place] (S) New Patient 03/17/2015 Patient Education: Patient Medication Summary Completed 03/17/2015 Patient Education: Hypertension Completed 03/17/2015 Referral: Lindsey Poole Referral Appointment Requested Instructions Comment . Afib -patient is doing MUCH better -heart sounds regular today -shortness of breath, dizziness and nausea have resolved -continue same meds and follow up with personal lines insurance advisor as scheduled. Patient verbalized understanding of plan. DIABETIC FOOT EXAM DONE TODAY IN THE OFFICE FAX NOTE TO DR BRISCOE WHEN COMPLETE . Hypertension - well controlled - continue with current medications, continue with no added salt diet. Pt has been encouraged to exercise daily. The pt has been advised to call the office if there are any acute concerns about change in blood pressure readings at home. Diabetes Mellitus - controlled - per recent FSBS reports. I have recommended for the patient to have follow up labs prior to the next office visit. The patient has been instructed to continue with current medications as previously directed, continue with regular FSBS monitoring to assure continued control of diabetes. Pt to call for any acute concerns, complaints, or if the blood glucose readings are starting to become less controlled. Peripheral aizdqdjnkr-PH-mivvoggn foot exam today in the office and paperwork completed for diabetic shoes-see scanned document DIABETIC FOOT EXAM DONE TODAY IN THE OFFICE FAX NOTE TO DR BRISCOE WHEN COMPLETE . Hypertension - well controlled - continue with current medications, continue with no added salt diet. Pt has been encouraged to exercise daily. The pt has been advised to call the office if there are any acute concerns about change in blood pressure readings at home. Diabetes Mellitus - controlled - per recent FSBS reports. I have recommended for the patient to have follow up labs prior to the next office visit. The patient has been instructed to continue with current medications as previously directed, continue with regular FSBS monitoring to assure continued control of diabetes. Pt to call for any acute concerns, complaints, or if the blood glucose readings are starting to become less controlled. Peripheral atqboqndil-YM-eomezifm foot exam today in the office and paperwork completed for diabetic shoes-see scanned document DIABETIC FOOT EXAM DONE TODAY IN THE OFFICE FAX NOTE TO DR BRISCOE WHEN COMPLETE . Hypertension - well controlled - continue with current medications, continue with no added salt diet. Pt has been encouraged to exercise daily. The pt has been advised to call the office if there are any acute concerns about change in blood pressure readings at home. Diabetes Mellitus - controlled - per recent FSBS reports. I have recommended for the patient to have follow up labs prior to the next office visit. The patient has been instructed to continue with current medications as previously directed, continue with regular FSBS monitoring to assure continued control of diabetes. Pt to call for any acute concerns, complaints, or if the blood glucose readings are starting to become less controlled. Peripheral vidgeeagah-YC-yjkequln foot exam today in the office and paperwork completed for diabetic shoes-see scanned document . Diabetes Mellitus - controlled - per recent FSBS reports. I have recommended for the patient to have follow up labs prior to the next office visit. The patient has been instructed to continue with current medications as previously directed, continue with regular FSBS monitoring to assure continued control of diabetes. Pt to call for any acute concerns, complaints, or if the blood glucose readings are starting to become less controlled. Hypertension - well controlled - continue with current medications, continue with no added salt diet. Pt has been encouraged to exercise daily. The pt has been advised to call the office if there are any acute concerns about change in blood pressure readings at home. Hyperlipidemia - pt had to stop her cholesterol medication due to muscle aches from her cholesterol medication. She is due for labs today. She states that she has been active cooking and taking care of her parents who are in their lat 80's. check thyroid labs . Hypertension - well controlled - continue with current medications, continue with no added salt diet. Pt has been encouraged to exercise daily. The pt has been advised to call the office if there are any acute concerns about change in blood pressure readings at home. Hypothyroidism - pt with chronic hypothyroidism, continue with current medication, will monitor pt to signs or symptoms of lack of adequate supplementation. Pt is to continue with current dose of medication unless directed otherwise. Check labs at regular intervals wither q 3 months or q 6 months based on previous levels of control. Hyperlipidemia-patient stopped crestor due to myalgias- discussed alternative - patient will consider zetia 10mg daily and call if she wants to start it start on coenzyme q10 - QUINOL - take daily and do this for a week prior to starting on the statin (zocor). . Diabetes Mellitus - controlled - per recent FSBS reports. I have recommended for the patient to have follow up labs prior to the next office visit. The patient has been instructed to continue with current medications as previously directed, continue with regular FSBS monitoring to assure continued control of diabetes. Pt to call for any acute concerns, complaints, or if the blood glucose readings are starting to become less controlled. Hyperlipidemia - pt has been counseled about appropriate diet, exercise, and need for low fat food choices. I have discussed the need for the patient to take medications as prescribed. If the patient has negative side effects from the medication, they are to CALL the office and not abruptly discontinue the medication without discussion with a practitioner in the office. We will check labs in 3-6 months for follow up on the patient's chronic medical problem and to assure normal liver response to medications. Peripheral neuropathy - pt not interested in treatment at this time. . Hyperlipidemia - pt has been counseled about appropriate diet, exercise, and need for low fat food choices. I have discussed the need for the patient to take medications as prescribed. We will check labs in 3-6 months for follow up on the patient's chronic medical problem and to assure normal liver response to medications. Patient is intolerant to statins-will monitor cholesterol -continue low fat diet. Diabetes Mellitus -diet controlled- I have recommended for the patient to have follow up labs prior to the next office visit. The patient has been instructed to continue with current medications as previously directed, continue with regular FSBS monitoring to assure continued control of diabetes. Pt to call for any acute concerns, complaints, or if the blood glucose readings are starting to become less controlled. Hypothyroidism - pt with chronic hypothyroidism, continue with current medication, will monitor pt to signs or symptoms of lack of adequate supplementation. Pt is to continue with current dose of medication unless directed otherwise. Check labs at regular intervals wither q 3 months or q 6 months based on previous levels of control. . Hypertension - well controlled - continue with current medications, continue with no added salt diet. Pt has been encouraged to exercise daily. The pt has been advised to call the office if there are any acute concerns about change in blood pressure readings at home. Diabetes Mellitus - I have recommended for the patient to have follow up labs prior to the next office visit. The patient has been instructed to continue with current medications as previously directed, continue with regular FSBS monitoring to assure continued control of diabetes. Pt to call for any acute concerns, complaints, or if the blood glucose readings are starting to become less controlled. Hyperlipidemia - pt has been counseled about appropriate diet, exercise, and need for low fat food choices. I have discussed the need for the patient to take medications as prescribed. If the patient has negative side effects from the medication, they are to CALL the office and not abruptly discontinue the medication without discussion with a practitioner in the office. We will check labs in 3-6 months for follow up on the patient's chronic medical problem and to assure normal liver response to medications. Hypothyroidism - pt with chronic hypothyroidism, continue with current medication, will monitor pt to signs or symptoms of lack of adequate supplementation. Pt is to continue with current dose of medication unless directed otherwise. Check labs at regular intervals q 3 months or q 6 months based on previous levels of control. Vitamin D level was little low - increase up to 5000 units daily. . Hypertension - well controlled - continue with current medications, continue with no added salt diet. Pt has been encouraged to exercise daily. The pt has been advised to call the office if there are any acute concerns about change in blood pressure readings at home. Hyperlipidemia - pt has been counseled about appropriate diet, exercise, and need for low fat food choices. I have discussed the need for the patient to take medications as prescribed. If the patient has negative side effects from the medication, they are to CALL the office and not abruptly discontinue the medication without discussion with a practitioner in the office. We will check labs in 3-6 months for follow up on the patient's chronic medical problem and to assure normal liver response to medications. Decrease cheese intake. Pt is not interested in starting on Zetia at this time. Vitamin D level was little low - increase up to 5000 units daily. Allergies - shot of kenalog . Hypertension - well controlled - continue with current medications, continue with no added salt diet. Pt has been encouraged to exercise daily. The pt has been advised to call the office if there are any acute concerns about change in blood pressure readings at home. Afib-rate controlled-continue follow up with cardiology Diabetes Mellitus - I have recommended for the patient to have follow up labs prior to the next office visit. The patient has been instructed to continue with current medications as previously directed, continue with regular FSBS monitoring to assure continued control of diabetes. Pt to call for any acute concerns, complaints, or if the blood glucose readings are starting to become less controlled. CARDIZEM CD 120MG DAILY ELIQUIS 5MG TWICE DAILY -SAMPLES PROVIDED EKG AND LABS TODAY AT THE HOSPITAL ECHO -WE WILL SCHEDULE REFER TO FAN MAIL CLERK -DR POOLE . Atrial Fibrillation -new onset-Dr Bermudez in to evaluate patient- will start patient on cardizem cd and eliquis -get EKG and labs today- schedule echo and refer to cardiology-instructed patient and her to go to ER if symptoms worsen or do not improve -patient and verbalized understanding of plan. Hypothyroidism-check labs today [id number] to monitor CARDIZEM CD 120MG DAILY ELIQUIS 5MG TWICE DAILY -SAMPLES PROVIDED EKG AND LABS TODAY AT THE HOSPITAL ECHO -WE WILL SCHEDULE REFER TO FAN MAIL CLERK -DR POOLE . Atrial Fibrillation -new onset-Dr Bermudez in to evaluate patient- will start patient on cardizem cd and eliquis -get EKG and labs today- schedule echo and refer to cardiology-instructed patient and her to go to ER if symptoms worsen or do not improve -patient and verbalized understanding of plan. Hypothyroidism-check labs today [id number] to monitor CARDIZEM CD 120MG DAILY ELIQUIS 5MG TWICE DAILY -SAMPLES PROVIDED EKG AND LABS TODAY AT THE HOSPITAL ECHO -WE WILL SCHEDULE REFER TO FAN MAIL CLERK -DR POOLE . Atrial Fibrillation -new onset-Dr Bermudez in to evaluate patient- will start patient on cardizem cd and eliquis -get EKG and labs today- schedule echo and refer to cardiology-instructed patient and her to go to ER if symptoms worsen or do not improve -patient and verbalized understanding of plan. Hypothyroidism-check labs today [id number] to monitor check labs today . Hypertension - well controlled - continue with current medications, continue with no added salt diet. Pt has been encouraged to exercise daily. The pt has been advised to call the office if there are any acute concerns about change in blood pressure readings at home. Diabetes Mellitus - controlled - per recent FSBS reports. I have recommended for the patient to have follow up labs prior to the next office visit. The patient has been instructed to continue with current medications as previously directed, continue with regular FSBS monitoring to assure continued control of diabetes. Pt to call for any acute concerns, complaints, or if the blood glucose readings are starting to become less controlled. Hypothyroidism - pt with chronic hypothyroidism, continue with current medication, will monitor pt to signs or symptoms of lack of adequate supplementation. Pt is to continue with current dose of medication unless directed otherwise. Check labs at regular intervals q 3 months or q 6 months based on previous levels of control. Hyperlipidemia - pt has been counseled about appropriate diet, exercise, and need for low fat food choices. I have discussed the need for the patient to take medications as prescribed. If the patient has negative side effects from the medication, they are to CALL the office and not abruptly discontinue the medication without discussion with a practitioner in the office. We will check labs in 3-6 months for follow up on the patient's chronic medical problem and to assure normal liver response to medications. Sciatica- back exercises discussed with the patient. Pt is to call if the symptoms do not improve or if they worsen. . Diabetic peripheral neuropathy - diabetes paperwork completed today in the office-patient does want to start medication-RX for gabapentin sent electronically and provided and instructed on use. Patient verbalized understanding of plan. HOLD CRESTOR X 2 WEEKS THEN RESTART 1/2 PILL QOD AND SEE IF YOU TOLERATE IT BETTER . Diabetic peripheral neuropathy -paperwork for diabetic shoes completed today in the office and will fax to Dr Briscoe's office- Patient verbalized understanding of plan. DECREASE LEVOTHYOXINE TO 100MCG DAILY REPEAT THYROID LABS IN 3 MONTHS GAS X IF GAS/BLOATING CONTINUES CALL IF SYMPTOMS DO NOT RESOLVE OR IF ANY WORSE AND WE WILL SCHEDULE A CT SCAN FLU VACCINE . Hypertension - well controlled - continue with current medications, continue with no added salt diet. Pt has been encouraged to exercise daily. The pt has been advised to call the office if there are any acute concerns about change in blood pressure readings at home. Hypothyroidism - pt with chronic hypothyroidism, continue with current medication, will monitor pt to signs or symptoms of lack of adequate supplementation. Pt is to continue with current dose of medication unless directed otherwise. Check labs at regular intervals wither q 3 months or q 6 months based on previous levels of control. Hyperlipidemia - pt has been counseled about appropriate diet, exercise, and need for low fat food choices. I have discussed the need for the patient to take medications as prescribed. If the patient has negative side effects from the medication, they are to CALL the office and not abruptly discontinue the medication without discussion with a practitioner in the office. We will check labs in 3-6 months for follow up on the patient's chronic medical problem and to assure normal liver response to medications. AFTER SEPTEMBER - START TAKING THE 50,000 UNITS OF VITAMIN D ONE TIME A MONTH. COME IN TO THE OFFICE AFTER July AND ASK FOR YOUR PNEUMOVAX - SINCE YOU HAD YOUR PREVNAR 13 PNEUMONIA SHOT IN JULY OF LAST YEAR YOU HAVE TO WAIT UNTIL July TO GET THE NEXT PNEUMONIA VACCINE. . Hypertension - well controlled - continue with current medications, continue with no added salt diet. Pt has been encouraged to exercise daily. The pt has been advised to call the office if there are any acute concerns about change in blood pressure readings at home. Diabetes Mellitus - controlled - per recent FSBS reports. I have recommended for the patient to have follow up labs prior to the next office visit. The patient has been instructed to continue with current medications as previously directed, continue with regular FSBS monitoring to assure continued control of diabetes. Pt to call for any acute concerns, complaints, or if the blood glucose readings are starting to become less controlled. Hyperlipidemia - pt has been counseled about appropriate diet, exercise, and need for low fat food choices. I have discussed the need for the patient to take medications as prescribed. If the patient has negative side effects from the medication, they are to CALL the office and not abruptly discontinue the medication without discussion with a practitioner in the office. We will check labs in 3-6 months for follow up on the patient's chronic medical problem and to assure normal liver response to medications. . Diverticulitis - rx for antibiotic sent to pt's pharmacy - pt advised to avoid seeds, nuts, popcorn, or any other food which has been proven to upset the pt's stomach. Call if symptoms do not improve or if any worse and we will check labs and CT scan. Patient verbalized understanding of plan. EKG troponin, ck . Left arm pain -recommend EKG and cardiac enzymes to r/o acute OH -instructed patient to monitor symptoms and call if do no resolve or if any worse -instructed her we will call with results of testing. Patient verbalized understanding of plan.
--- OUTSIDE RECORDS SUMMARY | 2019-04-04 06:49 | XMS REPORT | CCD ---
Author Author Delmis Her Organization Ria Bermudez MD, [facility] Address [address] [place] [address] Phone Care Team Providers Care [employer] Name Role Phone PP Unavailable CCM Unavailable Summary Purpose Interface Exchange Insurance Providers Payer name Policy type / Coverage type Covered democrat ID Effective Begin Date Effective End Date WPS Medicare Part B Medicare Part B [id number] Unknown [facility] Medicare Part B [id number] Unknown Family history Son Diagnosis Age At [...] Unknown Retired 03/17/[address]: 482902757 Never smoker 03/17/[address]: 282771470 Never smoker 03/17/2015 Allergies, Adverse Reactions, Alerts Substance Reaction Codes Entered Date Inactivated Date Status * NO KNOWN FOOD ALLERGIES Unknown 03/17/2015 No Inactive Date Active ciprofloxacin RxNorm: 86598 03/17/2015 No Inactive Date Active Erythromycin RxNorm: 4053 03/17/2015 No Inactive Date Active Penicillin Unknown 03/17/2015 No Inactive Date Active AUORQGM-MDY-FNR REDUCTASE INHIBITORS myalgias, Unknown 03/16/2016 No Inactive [...] Instructions enalapril maleate 5 mg tablet RxNorm: 764891 TAKE ONE TABLET BY MOUTH DAILY 01/25/2019 01/19/2020 Active levothyroxine 100 mcg tablet RxNorm: 454957 TAKE ONE TABLET BY MOUTH EVERY OTHER DAY ALTERNATE WITH 112 MCG TABLET 01/16/2019 06/14/2019 Active Zetia 10 mg tablet RxNorm: 825246 1/2 Tablet(s) PO daily 12/19/2018 No Stop Date Active Cardizem CD 120 mg capsule,extended release RxNorm: 362324 1 Capsule(s) PO daily 12/19/2018 06/16/2019 Active Eliquis 5 mg tablet RxNorm: 2999827 1 Tablet(s) PO BID 12/19/2018 No Stop Date Active gabapentin 100 mg capsule RxNorm: 460852 TAKE ONE CAPSULE BY MOUTH EVERY NIGHT AT BEDTIME 12/11/2018 02/08/2019 Inactive levothyroxine 112 mcg tablet RxNorm: 999584 TAKE ONE TABLET BY MOUTH EVERY OTHER DAY ALTERNATE WITH 100MCG TABLET 12/07/2018 03/06/2019 Active Zetia 10 mg tablet RxNorm: 872672 1 Tablet(s) PO daily 10/26/2018 12/18/2018 Inactive Zetia 10 mg tablet RxNorm: 639263 1/2 Tablet(s) PO daily 07/20/2018 10/25/2018 Inactive indapamide 1.25 mg tablet RxNorm: 167046 Tablet(s) TAKE ONE TABLET BY MOUTH DAILY 07/19/2018 07/13/2019 Active levothyroxine 112 mcg tablet RxNorm: 868897 TAKE ONE TABLET BY MOUTH EVERY OTHER DAY ALTERNATE WITH 100MCG TABLET 07/19/2018 11/15/2018 Inactive gabapentin 100 mg capsule RxNorm: 242689 TAKE ONE CAPSULE BY MOUTH EVERY NIGHT AT BEDTIME 06/05/2018 09/02/2018 Inactive Zetia 10 mg tablet RxNorm: 862521 1 Tablet(s) PO daily 05/11/2018 07/19/2018 Inactive Zetia 10 mg tablet RxNorm: 370181 1 Tablet(s) PO daily 05/11/2018 05/10/2018 Inactive indapamide 1.25 mg tablet RxNorm: 331779 TAKE ONE TABLET BY MOUTH DAILY 04/05/2018 07/18/2018 Inactive enalapril maleate 5 mg tablet RxNorm: 771280 TAKE ONE TABLET BY MOUTH DAILY 04/05/2018 12/30/2018 Inactive levothyroxine 112 mcg tablet RxNorm: 887776 1 Tablet(s) PO every other day . ALTERNATE WITH 100 MCG TABLET. 01/24/2018 05/23/2018 Inactive Crestor 10 mg tablet RxNorm: 682080 1 Tablet(s) PO QHS 01/24/2018 04/13/2018 Inactive levothyroxine 100 mcg tablet RxNorm: 201772 Tablet(s) TAKE ONE TABLET BY MOUTH EVERY OTHER DAY. ALTERNATE WITH 112 MCG TABLET. 01/24/2018 05/23/2018 Inactive Crestor 10 mg tablet RxNorm: 623765 1 Tablet(s) PO QHS 01/24/2018 01/23/2018 Inactive gabapentin 100 mg capsule RxNorm: 207623 TAKE ONE CAPSULE BY MOUTH EVERY NIGHT AT BEDTIME 01/05/2018 06/04/2018 Inactive indapamide 1.25 mg tablet RxNorm: 086326 TAKE ONE TABLET BY MOUTH DAILY 01/05/2018 04/04/2018 Inactive Zocor 20 mg tablet RxNorm: 214504 TAKE ONE TABLET BY MOUTH DAILY 12/02/2017 01/11/2018 Inactive Phenergan-Codeine 6.25 mg-10 mg/5 mL syrup RxNorm: 955474 5-10 Milliliter(s) PO Q6 as needed cough 11/09/2017 No Stop Date Active Tamiflu 75 mg capsule RxNorm: 724275 1 Capsule(s) PO BID 11/09/2017 11/13/2017 Inactive Tamiflu 75 mg capsule RxNorm: 916439 1 Capsule(s) PO BID 11/09/2017 11/08/2017 Inactive levothyroxine 100 mcg tablet RxNorm: 229088 TAKE ONE TABLET BY MOUTH DAILY 10/28/2017 01/23/2018 Inactive indapamide 1.25 mg tablet RxNorm: 766298 TAKE ONE TABLET BY MOUTH DAILY 09/09/2017 01/04/2018 Inactive levothyroxine 100 mcg tablet RxNorm: 538314 1 Tablet(s) PO daily TAKE ONE TABLET BY MOUTH DAILY 08/04/2017 10/27/2017 Inactive Flagyl 500 mg tablet RxNorm: 984867 1 Tablet(s) PO TID 07/19/2017 07/28/2017 Inactive enalapril maleate 5 mg tablet RxNorm: 079423 TAKE ONE TABLET BY MOUTH DAILY 06/30/2017 12/26/2017 Inactive indapamide 1.25 mg tablet RxNorm: 417245 TAKE ONE TABLET BY MOUTH DAILY 05/26/2017 09/08/2017 Inactive Zocor 20 mg tablet RxNorm: 193107 TAKE ONE TABLET BY MOUTH DAILY 05/26/2017 10/22/2017 Inactive gabapentin 100 mg capsule RxNorm: 389450 1 Capsule(s) PO QHS 05/05/2017 09/01/2017 Inactive Kenalog 40 mg/mL suspension for injection RxNorm: 4914119 1 Milliliter(s) Inj 01/27/2017 01/27/2017 Inactive levothyroxine 112 mcg tablet RxNorm: 024516 TAKE ONE TABLET BY MOUTH DAILY 01/17/2017 08/03/2017 Inactive Zocor 20 mg tablet RxNorm: 633259 TAKE ONE TABLET BY MOUTH DAILY 11/08/2016 05/06/2017 Inactive indapamide 1.25 mg tablet RxNorm: 541841 TAKE ONE TABLET BY MOUTH DAILY 11/08/2016 05/06/2017 Inactive enalapril maleate 5 mg tablet RxNorm: 125611 TAKE ONE TABLET BY MOUTH DAILY 09/01/2016 05/28/2017 Inactive indapamide 1.25 mg tablet RxNorm: 866096 TAKE ONE TABLET BY MOUTH DAILY 08/02/2016 10/30/2016 Inactive Vitamin D2 50,000 unit capsule RxNorm: 822864 1 Capsule(s) PO QW 07/15/2016 01/17/2018 Inactive indapamide 1.25 mg tablet RxNorm: 346998 TAKE ONE TABLET BY MOUTH DAILY 04/29/2016 07/27/2016 Inactive Vitamin D2 50,000 unit capsule RxNorm: 962196 1 Capsule(s) PO QW 03/16/2016 07/14/2016 Inactive Zocor 20 mg tablet RxNorm: 157894 1 Tablet(s) PO daily 03/16/2016 10/11/2016 Inactive levothyroxine 112 mcg tablet RxNorm: 682389 TAKE ONE TABLET BY MOUTH DAILY 01/07/2016 12/31/2016 Inactive indapamide 1.25 mg tablet RxNorm: 039903 1 Tablet(s) PO daily 12/03/2015 03/31/2016 Inactive Vitamin D2 50,000 unit capsule RxNorm: 673794 1 Capsule(s) PO QW 09/26/2015 09/25/2015 Inactive Lipitor 10 mg tablet RxNorm: 440691 1 Tablet(s) PO daily 09/26/2015 03/15/2016 Inactive Vitamin D2 50,000 unit capsule RxNorm: 646700 1 Capsule(s) PO QW 09/26/2015 03/15/2016 Inactive enalapril maleate 5 mg tablet RxNorm: 512440 1 Tablet(s) PO daily 08/06/2015 07/30/2016 Inactive levothyroxine 112 mcg tablet RxNorm: 378356 1 Tablet(s) PO daily 04/04/2015 10/30/2015 Inactive Vitamin D3 2,000 unit capsule RxNorm: 077273 1 Capsule(s) PO daily No Start Date Active aspirin 500 mg tablet RxNorm: 898238 1 Tablet(s) PO daily No Start Date Active Co Q-10 oral RxNorm: 19902 oral No Start Date Active Phenergan-Codeine 6.25 mg-10 mg/5 mL syrup RxNorm: 448323 5-10 Milliliter(s) PO Q6 as needed cough No Start Date 11/08/2017 Inactive Lipitor 20 mg tablet RxNorm: 650504 1 Tablet(s) PO daily No Start Date 09/14/2015 Inactive indapamide 1.25 mg tablet RxNorm: 371860 1 Tablet(s) PO daily No Start Date 12/02/2015 Inactive enalapril maleate 5 mg tablet RxNorm: 986815 1 Tablet(s) PO daily No Start Date 08/05/2015 Inactive levothyroxine 112 mcg tablet RxNorm: 149260 1 Tablet(s) PO daily No Start Date 04/03/2015 Inactive Medication Administered Medication Codes Instructions Start Date Status Kenalog 40 mg/mL suspension for injection RxNorm: 3500886 1Milliliter 01/27/2017 No longer Active Immunizations Vaccine [...] (3rd IS) 2.55 uIU/mL 10/27/2018 Free T4 Jtw011 FREE T4 1.07 ng/dL 10/27/2018 Comp Metabolic Yvl699 NA 138 mEq/L 10/26/2018 Comp Metabolic Wby395 K 4.3 mEq/L 10/26/2018 Comp Metabolic Wjf765 CL 102 mEq/L 10/26/2018 Comp Metabolic Ntk102 CO2 26.0 mEq/L 10/26/2018 Comp Metabolic Rva561 ANION GAP 14 10/26/2018 Comp Metabolic Gkb556 GLUCOSE 88 mg/dL 10/26/2018 Comp Metabolic Hds369 Creat 0.9 mg/dL 10/26/2018 Comp Metabolic Vkm737 eGFR 63 ml/min/1.73m2 10/26/2018 Comp Metabolic Rut118 BUN 25 mg/dL 10/26/2018 Comp Metabolic Civ673 B/C Ratio 26.6 Ratio 10/26/2018 Comp Metabolic Wiq730 CALCIUM 10.1 mg/dL 10/26/2018 Comp Metabolic Osh776 ALK PHOS 77 U/L 10/26/2018 Comp Metabolic Mvv008 AST(SGOT) 16 U/L 10/26/2018 Comp Metabolic Qry800 ALT(SGPT) 16 U/L 10/26/2018 Comp Metabolic Jqb850 BILI T 0.5 mg/dL 10/26/2018 Comp Metabolic Jxj353 ALBUMIN 4.3 g/dL 10/26/2018 Comp Metabolic Nnw730 TPRO 6.8 g/dL 10/26/2018 Comp Metabolic Mmb845 GLOB 2.5 g/dL 10/26/2018 Comp Metabolic Rkd350 A/G Ratio 1.7 Ratio 10/26/2018 Comp Metabolic Wtm625 Osmo 279 mOsmo 10/26/2018 %Hba1C Oez843 % HbA1c 78790- 6 5.2 % 10/26/2018 %Hba1C Zwe215 Gluc Ave 103 mg/dL 10/26/2018 Cbc With [...] 29.1 pg 10/26/2018 Cbc With Differential Ord2 [place]% 9.6 % 10/26/2018 Cbc With Differential Ord2 [...] 1.94 K/ul 10/26/2018 Cbc With Differential Ord2 [place] ABS# 0.6 K/ul 10/26/2018 Cbc With Differential Ord2 Eos ABS# 0.1 K/ul 10/26/2018 Cbc With Differential Ord2 Baso ABS# 0.0 K/ul 10/26/2018 Lipid Ord30 CHOL 238 mg/dL 10/26/2018 Lipid Ord30 HDL 42.0 mg/dl 10/26/2018 Lipid Ord30 TRIG 270 mg/dL 10/26/2018 Lipid Ord30 LDL 142 mg/dL 10/26/2018 Lipid Ord30 C/HDL 5.7 Ratio 10/26/2018 %Hba1C Dir039 % HbA1c 84616- 6 5.3 % 07/20/2018 %Hba1C Jmb281 Gluc Ave 105 mg/dL 07/20/2018 Comp Metabolic Yeq397 NA 139 mEq/L 07/20/2018 Comp Metabolic Uoh020 K 5.1 mEq/L 07/20/2018 Comp Metabolic Ibk844 CL 106 mEq/L 07/20/2018 Comp Metabolic Ryd124 CO2 19.0 mEq/L 07/20/2018 Comp Metabolic Eol095 ANION GAP 19 07/20/2018 Comp Metabolic Lpl478 GLUCOSE 88 mg/dL 07/20/2018 Comp Metabolic Ozp918 Creat 0.8 mg/dL 07/20/2018 Comp Metabolic Dks792 eGFR 77 ml/min/1.73m2 07/20/2018 Comp Metabolic Ope212 BUN 25 mg/dL 07/20/2018 Comp Metabolic Gcw070 B/C Ratio 31.6 Ratio 07/20/2018 Comp Metabolic Zbg128 CALCIUM 10.0 mg/dL 07/20/2018 Comp Metabolic Hni427 ALK PHOS 81 U/L 07/20/2018 Comp Metabolic Pho420 AST(SGOT) 26 U/L 07/20/2018 Comp Metabolic Xoi856 ALT(SGPT) 16 U/L 07/20/2018 Comp Metabolic Oyd973 BILI T 0.5 mg/dL 07/20/2018 Comp Metabolic Dzi031 ALBUMIN 4.5 g/dL 07/20/2018 Comp Metabolic Kcy912 TPRO 7.2 g/dL 07/20/2018 Comp Metabolic Dbl016 GLOB 2.7 g/dL 07/20/2018 Comp Metabolic Pyy785 A/G Ratio 1.6 Ratio 07/20/2018 Comp Metabolic Nmk094 Osmo 281 mOsmo 07/20/2018 Free T4 Wuq081 FREE T4 1.00 ng/dL 07/20/2018 Tsh Ord6 TSH (3rd IS) 2.05 uIU/mL 07/20/2018 Vitamin D 25 Oh Jzx9381 VITAMIN D, 25 HYDROXY 57.07 ng/mL 07/20/2018 Lipid Ord30 CHOL 242 mg/dL 07/20/2018 Lipid Ord30 HDL 43.0 mg/dl 07/20/2018 Lipid Ord30 TRIG 314 mg/dL 07/20/2018 Lipid Ord30 LDL 136 mg/dL 07/20/2018 Lipid Ord30 C/HDL 5.6 Ratio 07/20/2018 Free T4 Fzt055 FREE T4 1.24 ng/dL 04/14/2018 Tsh Ord6 TSH (3rd IS) 0.65 uIU/mL 04/14/2018 %Hba1C Pxi745 % HbA1c 64478- 6 5.1 % 01/12/2018 %Hba1C Zfw148 Gluc Ave 100 mg/dL 01/12/2018 Free T4 Csv813 FREE T4 0.97 ng/dL 01/12/2018 Lipid Ord30 [...] 29.7 pg 01/12/2018 Cbc With Differential Ord2 [place]% 10.3 % 01/12/2018 Cbc With Differential Ord2 [...] 2.40 K/ul 01/12/2018 Cbc With Differential Ord2 [place] ABS# 0.8 K/ul 01/12/2018 Cbc With Differential Ord2 Eos ABS# 0.2 K/ul 01/12/2018 Cbc With Differential Ord2 Baso ABS# 0.0 K/ul 01/12/2018 Comp Metabolic Rih146 NA 138 mEq/L 01/12/2018 Comp Metabolic Cvv804 K 4.1 mEq/L 01/12/2018 Comp Metabolic Npt077 CL 100 mEq/L 01/12/2018 Comp Metabolic Rxo386 CO2 28.0 mEq/L 01/12/2018 Comp Metabolic Apb088 ANION GAP 14 01/12/2018 Comp Metabolic Ish024 GLUCOSE 84 mg/dL 01/12/2018 Comp Metabolic Ojq089 Creat 0.8 mg/dL 01/12/2018 Comp Metabolic Fbd410 eGFR 78 ml/min/1.73m2 01/12/2018 Comp Metabolic Lze967 BUN 20 mg/dL 01/12/2018 Comp Metabolic Kwv459 B/C Ratio 25.6 Ratio 01/12/2018 Comp Metabolic Zhu897 CALCIUM 9.6 mg/dL 01/12/2018 Comp Metabolic Egd036 ALK PHOS 76 U/L 01/12/2018 Comp Metabolic Rte425 AST(SGOT) 16 U/L 01/12/2018 Comp Metabolic Qtz860 ALT(SGPT) 16 U/L 01/12/2018 Comp Metabolic Fgm224 BILI T 0.4 mg/dL 01/12/2018 Comp Metabolic Lnr658 ALBUMIN 4.1 g/dL 01/12/2018 Comp Metabolic Oxq440 TPRO 6.7 g/dL 01/12/2018 Comp Metabolic Doa824 GLOB 2.6 g/dL 01/12/2018 Comp Metabolic Ean108 A/G Ratio 1.6 Ratio 01/12/2018 Comp Metabolic Xzw785 Osmo 277 mOsmo 01/12/2018 Free T4 Gnr494 FREE T4 1.40 ng/dL 08/05/2017 %Hba1C Nfy269 % HbA1c 22126- 6 5.0 % 08/05/2017 %Hba1C Tek672 Gluc Ave 97 mg/dL 08/05/2017 Cbc With [...] 29.5 pg 08/03/2017 Cbc With Differential Ord2 [place]% 9.3 % 08/03/2017 Cbc With Differential Ord2 [...] 2.10 K/ul 08/03/2017 Cbc With Differential Ord2 [place] ABS# 0.7 K/ul 08/03/2017 Cbc With Differential Ord2 Eos ABS# 0.1 K/ul 08/03/2017 Cbc With Differential Ord2 Baso ABS# 0.0 K/ul 08/03/2017 Vitamin D 25 Oh Nwi2491 VITAMIN D, 25 HYDROXY 52.73 ng/mL 08/03/2017 Lipid Ord30 CHOL 215 mg/dL 08/03/2017 Lipid Ord30 HDL 43.0 mg/dl 08/03/2017 Lipid Ord30 TRIG 278 mg/dL 08/03/2017 Lipid Ord30 LDL 116 mg/dL 08/03/2017 Lipid Ord30 C/HDL 5.0 Ratio 08/03/2017 Tsh Ord6 hTSH II 0.09 uIU/mL 08/03/2017 Comp Metabolic Sni564 NA 137 mEq/L 08/03/2017 Comp Metabolic Wzc127 K 4.3 mEq/L 08/03/2017 Comp Metabolic Yuw599 CL 102 mEq/L 08/03/2017 Comp Metabolic Lcy787 CO2 24.0 mEq/L 08/03/2017 Comp Metabolic Jlw537 ANION GAP 15 08/03/2017 Comp Metabolic Zhq462 GLUCOSE 80 mg/dL 08/03/2017 Comp Metabolic Izu052 Creat 0.9 mg/dL 08/03/2017 Comp Metabolic Rbv806 eGFR 68 ml/min/1.73m2 08/03/2017 Comp Metabolic Mgv740 BUN 18 mg/dL 08/03/2017 Comp Metabolic Smx602 B/C Ratio 20.5 Ratio 08/03/2017 Comp Metabolic Ozs192 CALCIUM 9.7 mg/dL 08/03/2017 Comp Metabolic Eux449 ALK PHOS 68 U/L 08/03/2017 Comp Metabolic Spq482 AST(SGOT) 14 U/L 08/03/2017 Comp Metabolic Lpr169 ALT(SGPT) 14 U/L 08/03/2017 Comp Metabolic Xpz096 BILI T 0.6 mg/dL 08/03/2017 Comp Metabolic Uho829 ALBUMIN 4.0 g/dL 08/03/2017 Comp Metabolic Rat909 TPRO 6.4 g/dL 08/03/2017 Comp Metabolic Ouw589 GLOB 2.4 g/dL 08/03/2017 Comp Metabolic Bpw474 A/G Ratio 1.7 Ratio 08/03/2017 Comp Metabolic Cgj335 Osmo 275 mOsmo 08/03/2017 %Hba1C Hfh803 % HbA1c 27934- 6 5.1 % 01/06/2017 %Hba1C Cyq357 Gluc Ave 100 mg/dL 01/06/2017 Lipid Ord30 CHOL 223 mg/dL 01/06/2017 Lipid Ord30 HDL 44.0 mg/dl 01/06/2017 Lipid Ord30 TRIG 292 mg/dL 01/06/2017 Lipid Ord30 LDL 121 mg/dL 01/06/2017 Lipid Ord30 C/HDL 5.1 Ratio 01/06/2017 Tsh Ord6 hTSH II 0.99 uIU/mL 01/06/2017 Free T4 Afu385 FREE T4 0.96 ng/dL 01/06/2017 Cbc With [...] 29.6 pg 01/06/2017 Cbc With Differential Ord2 [place]% 9.2 % 01/06/2017 Cbc With Differential Ord2 [...] 1.85 K/ul 01/06/2017 Cbc With Differential Ord2 [place] ABS# 0.6 K/ul 01/06/2017 Cbc With Differential Ord2 Eos ABS# 0.1 K/ul 01/06/2017 Cbc With Differential Ord2 Baso ABS# 0.0 K/ul 01/06/2017 Vitamin D 25 Oh Upf4348 VITAMIN D, 25 HYDROXY 35.10 ng/mL 01/06/2017 Comp Metabolic Ycd472 NA 140 mEq/L 01/06/2017 Comp Metabolic Not639 K 4.3 mEq/L 01/06/2017 Comp Metabolic Qgy214 CL 103 mEq/L 01/06/2017 Comp Metabolic Dki244 CO2 29.0 mEq/L 01/06/2017 Comp Metabolic Ueo573 ANION GAP 12 01/06/2017 Comp Metabolic Imv968 GLUCOSE 86 mg/dL 01/06/2017 Comp Metabolic Qjv853 Creat 0.8 mg/dL 01/06/2017 Comp Metabolic Rgc270 eGFR 82 ml/min/1.73m2 01/06/2017 Comp Metabolic Izd109 BUN 19 mg/dL 01/06/2017 Comp Metabolic Npp305 B/C Ratio 25.3 Ratio 01/06/2017 Comp Metabolic Wxr580 CALCIUM 9.6 mg/dL 01/06/2017 Comp Metabolic Fuc048 ALK PHOS 77 U/L 01/06/2017 Comp Metabolic Unx166 AST(SGOT) 16 U/L 01/06/2017 Comp Metabolic Pvg455 ALT(SGPT) 18 U/L 01/06/2017 Comp Metabolic Jjg733 BILI T 0.4 mg/dL 01/06/2017 Comp Metabolic Tpb329 ALBUMIN 4.1 g/dL 01/06/2017 Comp Metabolic Lou577 TPRO 6.7 g/dL 01/06/2017 Comp Metabolic Rxi978 GLOB 2.6 g/dL 01/06/2017 Comp Metabolic Pos988 A/G Ratio 1.6 Ratio 01/06/2017 Comp Metabolic Zzm299 Osmo 281 mOsmo 01/06/2017 Vitamin D 25 Oh Hfc5676 VITAMIN D, 25 HYDROXY 42.77 ng/mL 07/09/2016 Free T4 Asv854 FREE T4 1.23 ng/dL 07/08/2016 Comp Metabolic Akf794 NA 136 mEq/L 07/08/2016 Comp Metabolic Apq620 K 4.1 mEq/L 07/08/2016 Comp Metabolic Pou455 CL 103 mEq/L 07/08/2016 Comp Metabolic Tgv657 CO2 26.0 mEq/L 07/08/2016 Comp Metabolic Myd432 ANION GAP 11 07/08/2016 Comp Metabolic Jqt997 GLUCOSE 83 mg/dL 07/08/2016 Comp Metabolic Qcz994 Creat 0.8 mg/dL 07/08/2016 Comp Metabolic Jgl735 eGFR 80 ml/min/1.73m2 07/08/2016 Comp Metabolic Yvk821 BUN 22 mg/dL 07/08/2016 Comp Metabolic Dir196 B/C Ratio 28.9 Ratio 07/08/2016 Comp Metabolic Lpb005 CALCIUM 9.8 mg/dL 07/08/2016 Comp Metabolic Isx645 ALK PHOS 75 U/L 07/08/2016 Comp Metabolic Jxs923 AST(SGOT) 14 U/L 07/08/2016 Comp Metabolic Zmd579 ALT(SGPT) 15 U/L 07/08/2016 Comp Metabolic Pqu231 BILI T 0.4 mg/dL 07/08/2016 Comp Metabolic Nio053 ALBUMIN 4.1 g/dL 07/08/2016 Comp Metabolic Tdo316 TPRO 6.6 g/dL 07/08/2016 Comp Metabolic Rym766 GLOB 2.5 g/dL 07/08/2016 Comp Metabolic Jvp361 A/G Ratio 1.7 Ratio 07/08/2016 Comp Metabolic Pcj574 Osmo 274 mOsmo 07/08/2016 %Hba1C Jrb809 % HbA1c 17149- 6 5.4 % 07/08/2016 %Hba1C Zcp610 Gluc Ave 108 mg/dL 07/08/2016 Cbc With [...] 29.8 pg 07/08/2016 Cbc With Differential Ord2 [place]% 10.1 % 07/08/2016 Cbc With Differential Ord2 [...] 1.89 K/ul 07/08/2016 Cbc With Differential Ord2 [place] ABS# 0.7 K/ul 07/08/2016 Cbc With Differential Ord2 Eos ABS# 0.2 K/ul 07/08/2016 Cbc With Differential Ord2 Baso ABS# 0.0 K/ul 07/08/2016 Tsh Ord6 hTSH II 0.21 uIU/mL 07/08/2016 Lipid Ord30 CHOL 210 mg/dL 07/08/2016 Lipid Ord30 HDL 41.0 mg/dl 07/08/2016 Lipid Ord30 TRIG 257 mg/dL 07/08/2016 Lipid Ord30 LDL 118 mg/dL 07/08/2016 Lipid Ord30 C/HDL 5.1 Ratio 07/08/2016 Vitamin D 25 Oh Jdn2345 VITAMIN D, 25 HYDROXY 34.38 ng/mL 03/10/2016 %Hba1C Pst669 % HbA1c 71447- 6 5.3 % 03/09/2016 %Hba1C Xyt076 Gluc Ave 105 mg/dL 03/09/2016 Comp Metabolic Ocs410 NA 137 mEq/L 03/09/2016 Comp Metabolic Rkb133 K 4.5 mEq/L 03/09/2016 Comp Metabolic Lvw630 CL 104 mEq/L 03/09/2016 Comp Metabolic Ymk347 CO2 27.0 mEq/L 03/09/2016 Comp Metabolic Gfd472 ANION GAP 11 03/09/2016 Comp Metabolic Huy015 GLUCOSE 86 mg/dL 03/09/2016 Comp Metabolic Yjm637 Creat 0.8 mg/dL 03/09/2016 Comp Metabolic Eiv665 eGFR 81 ml/min/1.73m2 03/09/2016 Comp Metabolic Mgh453 BUN 23 mg/dL 03/09/2016 Comp Metabolic Lsm136 B/C Ratio 30.3 Ratio 03/09/2016 Comp Metabolic Bqp572 CALCIUM 9.4 mg/dL 03/09/2016 Comp Metabolic Dsb578 ALK PHOS 69 U/L 03/09/2016 Comp Metabolic Hdn125 AST(SGOT) 14 U/L 03/09/2016 Comp Metabolic Mnw200 ALT(SGPT) 14 U/L 03/09/2016 Comp Metabolic Uop849 BILI T 0.4 mg/dL 03/09/2016 Comp Metabolic Urv261 ALBUMIN 4.1 g/dL 03/09/2016 Comp Metabolic Che224 TPRO 6.6 g/dL 03/09/2016 Comp Metabolic Bcx602 GLOB 2.5 g/dL 03/09/2016 Comp Metabolic Swa259 A/G Ratio 1.6 Ratio 03/09/2016 Comp Metabolic Fxj778 Osmo 277 mOsmo 03/09/2016 Tsh Ord6 hTSH [...] 28.9 pg 03/09/2016 Cbc With Differential Ord2 [place]% 11.1 % 03/09/2016 Cbc With Differential Ord2 [...] 2.16 K/ul 03/09/2016 Cbc With Differential Ord2 [place] ABS# 0.9 K/ul 03/09/2016 Cbc With Differential Ord2 Eos ABS# 0.1 K/ul 03/09/2016 Cbc With Differential Ord2 Baso ABS# 0.0 K/ul 03/09/2016 Lipid Ord30 CHOL 283 mg/dL 03/09/2016 Lipid Ord30 HDL 40.0 mg/dl 03/09/2016 Lipid Ord30 TRIG 271 mg/dL 03/09/2016 Lipid Ord30 LDL 189 mg/dL 03/09/2016 Lipid Ord30 C/HDL 7.1 Ratio 03/09/2016 Comp Metabolic Awk394 NA 137 mEq/L 09/15/2015 Comp Metabolic Ysc757 K 4.4 mEq/L 09/15/2015 Comp Metabolic Xnr403 CL 101 mEq/L 09/15/2015 Comp Metabolic Pga495 CO2 28.0 mEq/L 09/15/2015 Comp Metabolic Eoj277 ANION GAP 12 09/15/2015 Comp Metabolic Isa675 GLUCOSE 89 mg/dL 09/15/2015 Comp Metabolic Sdk484 Creat 0.8 mg/dL 09/15/2015 Comp Metabolic Oip159 eGFR 73 ml/min/1.73m2 09/15/2015 Comp Metabolic Tmf267 BUN 20 mg/dL 09/15/2015 Comp Metabolic Xjk007 B/C Ratio 24.1 Ratio 09/15/2015 Comp Metabolic Odb113 CALCIUM 10.1 mg/dL 09/15/2015 Comp Metabolic Wqs722 ALK PHOS 72 U/L 09/15/2015 Comp Metabolic Hwg589 AST(SGOT) 16 U/L 09/15/2015 Comp Metabolic Soh135 ALT(SGPT) 15 U/L 09/15/2015 Comp Metabolic Mew103 BILI T 0.5 mg/dL 09/15/2015 Comp Metabolic Ogs075 ALBUMIN 4.4 g/dL 09/15/2015 Comp Metabolic Oug254 TPRO 7.0 g/dL 09/15/2015 Comp Metabolic Euy925 GLOB 2.6 g/dL 09/15/2015 Comp Metabolic Zxs414 A/G Ratio 1.7 Ratio 09/15/2015 Comp Metabolic Dka900 Osmo 276 mOsmo 09/15/2015 Tsh Ord6 hTSH II 2.99 uIU/mL 09/15/2015 Vitamin D 25 Oh Gmw9514 VITAMIN D, 25 HYDROXY 30.19 ng/mL 09/15/2015 [...] Lipid Ord30 C/HDL 7.0 Ratio 09/15/2015 %Hba1C Prm548 % HbA1c 95728- 6 5.2 % 09/15/2015 %Hba1C Qfp937 Gluc Ave 103 mg/dL 09/15/2015 Review of [...] Formatting Model/CDA Sections, Assigned to/Margarita Brock CPT-4: [id number] 07/27/2018 FLU VAC NO PRSV 4 SHANNON 3 YRS+ CPT-4: 79671 08/04/2017 ADMIN INFLUENZA VIRUS VAC CPT-4: G0008 08/04/2017 TRIAMCINOLONE ACET INJ NOS CPT-4: J3301 01/27/2017 THER/PROPH/DIAG INJ SC/IM CPT-4: 36099 01/27/2017 ADMIN INFLUENZA VIRUS VAC CPT-4: G0008 07/15/2016 FLU VACC 4 SHANNON 3 YRS PLUS IM SNOMED CT: [id number] CPT-4: 62425 07/15/2016 Vital Signs Date Vital 02/20/2019 Blood Pressure 1: 144/76 Code: 8480-6 BMI: 33.3 Code: 38526-0 Heart Rate 1: 66 bpm Height: 5'4" [...] 1: 132/76 Code: 8480-6 BMI: 34.5 Code: 93373-8 Heart Rate 1: 55 bpm Height: 5'4" SpO2: 99% Weight: 204 lbs 07/20/2018 Blood Pressure 1: 116/74 Code: 8480-6 BMI: 34.5 Code: 04353-4 Heart Rate 1: 52 bpm Height: 5'4" SpO2: 99% Weight: 204 lbs 04/14/2018 Blood Pressure 1: 128/76 Code: 8480-6 BMI: 34.5 Code: 10719-3 Heart Rate 1: 67 bpm Height: 5'4" SpO2: 95% Weight: 204 lbs 02/06/2018 Blood Pressure 1: 142/78 Code: 8480-6 BMI: 35.2 Code: 17406-1 Heart Rate 1: 58 bpm Height: 5'4" SpO2: 98% Weight: 208 lbs 01/12/2018 Blood Pressure 1: 132/82 Code: 8480-6 BMI: 34.8 Code: 03675-8 Height: 5'4" Weight: 206 lbs 08/04/2017 Blood Pressure 1: 140/82 Code: 8480-6 BMI: 31.9 Code: 42029-3 Heart Rate 1: 58 bpm Height: 5'4" SpO2: 99% Weight: 188 lbs 8 oz 07/19/2017 Blood Pressure 1: 136/76 Code: 8480-6 BMI: 32.0 Code: 69729-3 Heart Rate 1: 67 bpm Height: 5'4" SpO2: 97% Weight: 189 lbs 8 oz 05/05/2017 Blood Pressure 1: 142/80 Code: 8480-6 BMI: 32.4 Code: 87849-8 Heart Rate 1: 54 bpm Height: 5'4" SpO2: 98% Weight: 191 lbs 8 oz 01/27/2017 Blood Pressure 1: 132/82 Code: 8480-6 BMI: 34.1 Code: 89670-4 Heart Rate 1: 55 bpm Height: 5'4" SpO2: 99% Weight: 202 lbs 07/15/2016 Blood Pressure 1: 128/72 Code: 8480-6 BMI: 34.4 Code: 58707-2 Heart Rate 1: 50 bpm Height: 5'4" SpO2: 98% Weight: 203 lbs 8 oz 03/16/2016 Blood Pressure 1: 118/78 Code: 8480-6 BMI: 34.5 Code: 90295-3 Heart Rate 1: 55 bpm Height: 5'4" SpO2: 98% Weight: 204 lbs 09/15/2015 Blood Pressure 1: 134/72 Code: 8480-6 BMI: 34.6 Code: 81097-6 Heart Rate 1: 52 bpm Height: 5'4" SpO2: 99% Weight: 205 lbs 03/17/2015 Blood Pressure 1: 128/74 Code: 8480-6 BMI: 35.8 Code: 72637-0 Heart Rate 1: 59 bpm Height: 5'4" [...] data Encounters Encounter Performer Location Codes Date ([id number]) [id number] EST. PATIENT, LEVEL III Diagnosis: Pain in left arm[ICD10: M79.602] Delmis Bermudez MD, [facility] CPT- 4: 43842 02/20/2019 ([id number]) [id number] EST. PATIENT, LEVEL IV Diagnosis: Essential (primary) hypertension[ICD10: I10] Diagnosis: Type 2 diabetes mellitus without complications[ICD10: E11.9] Diagnosis: Paroxysmal atrial fibrillation[ICD10: I48.0] Delmis Bermudez MD, [facility] CPT-4: 28433 01/23/2019 ([id number]) Miscellaneous no charge Diagnosis: Paroxysmal atrial fibrillation[ICD10: I48.0] Delmis Bermudez MD, [facility] CPT-4: 27973 12/22/2018 ([id number]) [id number] EST. PATIENT, LEVEL IV Diagnosis: Paroxysmal atrial fibrillation[ICD10: I48.0] Diagnosis: Hypothyroidism, unspecified[ICD10: E03.9] Diagnosis: Essential (primary) hypertension[ICD10: I10] Ria Bermudez MD, [facility] CPT-4: 57718 12/19/2018 ([id number]) [id number] EST. PATIENT, LEVEL IV Diagnosis: Essential (primary) hypertension[ICD10: I10] Diagnosis: Type 2 diabetes mellitus with diabetic polyneuropathy[ICD10: E11.42] Diagnosis: Hypothyroidism, unspecified[ICD10: E03.9] Diagnosis: Mixed hyperlipidemia[ICD10: E78.2] Diagnosis: Lumbago with sciatica, right side[ICD10: M54.41] Delmis Bermudez MD, [facility] CPT-4: 25908 10/26/2018 ([id number]) [id number] EST. PATIENT, LEVEL IV Diagnosis: Type 2 diabetes mellitus with diabetic polyneuropathy[ICD10: E11.42] Diagnosis: Mixed hyperlipidemia[ICD10: E78.2] Diagnosis: Essential (primary) hypertension[ICD10: I10] Diagnosis: Vitamin D deficiency, unspecified[ICD10: E55.9] Diagnosis: Hypothyroidism, unspecified[ICD10: E03.9] Delmis Bermudez MD, [facility] CPT-4: 61499 07/20/2018 ([id number]) 55039 EST. PATIENT, LEVEL IV Diagnosis: Essential (primary) hypertension[ICD10: I10] Diagnosis: Hypothyroidism, unspecified[ICD10: E03.9] Diagnosis: Mixed hyperlipidemia[ICD10: E78.2] Delmis Bermudez MD, [facility] CPT- 4: 96137 04/14/2018 ([id number]) 37692 EST. PATIENT, LEVEL III Diagnosis: Type 2 diabetes mellitus with diabetic polyneuropathy[ICD10: E11.42] Delmis Bermudez MD [facility] CPT-4: 65108 02/06/2018 ([id number]) 02517 EST. PATIENT, LEVEL IV Diagnosis: Mixed hyperlipidemia[ICD10: E78.2] Diagnosis: Hypothyroidism, unspecified[ICD10: E03.9] Diagnosis: Type 2 diabetes mellitus without complications[ICD10: E11.9] Delmis Bermudez MD, [facility] CPT-4: 55824 01/12/2018 ([id number]) 97998 EST. PATIENT, LEVEL IV Diagnosis: Essential (primary) hypertension[ICD10: I10] Diagnosis: Mixed hyperlipidemia[ICD10: E78.2] Diagnosis: Hypothyroidism, unspecified[ICD10: E03.9] Diagnosis: Type 2 diabetes mellitus without complications[ICD10: E11.9] Diagnosis: Encounter for immunization[ICD10: Z23] Delmis Bermudez MD, [facility] CPT-4: 16564 08/04/2017 ([id number]) 22777 EST. PATIENT, LEVEL III Diagnosis: Diverticulitis of large intestine without perforation or abscess without bleeding[ICD10: K57.32] Delmis Bermudez MD, [facility] CPT-4: 87312 07/19/2017 ([id number]) 33443 EST. PATIENT, LEVEL III Diagnosis: Type 2 diabetes mellitus with diabetic polyneuropathy[ICD10: E11.42] Delmis Bermudez MD, [facility] CPT-4: 72245 05/05/2017 ([id number]) 68098 EST. PATIENT, LEVEL IV Diagnosis: Essential (primary) hypertension[ICD10: I10] Diagnosis: Type 2 diabetes mellitus without complications[ICD10: E11.9] Diagnosis: Mixed hyperlipidemia[ICD10: E78.2] Diagnosis: Allergic rhinitis due to pollen[ICD10: J30.1] Ria Bermudez MD, [facility] CPT-4: 70950 01/27/2017 ([id number]) 37549 EST. PATIENT, LEVEL IV Diagnosis: Type 2 diabetes mellitus without complications[ICD10: E11.9] Diagnosis: Essential (primary) hypertension[ICD10: I10] Diagnosis: Mixed hyperlipidemia[ICD10: E78.2] [facility] CPT- 4: 73447 07/15/2016 ([id number]) 59133 EST. PATIENT, LEVEL IV Diagnosis: Type 2 diabetes mellitus without complications[ICD10: E11.9] Diagnosis: Polyneuropathy, unspecified[ICD10: G62.9] Diagnosis: Mixed hyperlipidemia[ICD10: E78.2] [facility] CPT- 4: 28611 03/16/2016 ([id number]) 99183 EST. PATIENT, LEVEL IV Diagnosis: Type 2 diabetes mellitus without complications[ICD10: E11.9] Diagnosis: Essential (primary) hypertension[ICD10: I10] Diagnosis: Vitamin D deficiency, unspecified[ICD10: E55.9] Diagnosis: Mixed hyperlipidemia[ICD10: E78.2] Ria Bermudez MD, [facility] CPT- 4: 48498 09/15/2015 ([id number]) OFFICE VISIT, NEW - LEVEL 4 Diagnosis: ESSENTIAL HYPERTENSION[ICD9: 401.9] Diagnosis: Diabetes mellitus type 2, controlled[ICD9: 250.00] Diagnosis: Peripheral neuropathy[ICD9: 356.9] Delmis Bermudez MD, [facility] CPT- 4: 94436 03/17/2015 Plan of Care Planned Activity Notes [...] less controlled. 01/23/2019 Appointment: Delmis Her WPtel: [facility] (15 min) Moderate 01/23/2019 Patient Education: Patient Medication Summary Completed 01/23/2019 Patient Education: Diabetes Completed 01/23/2019 Appointment: Delmis Her WPtel: [address] [place] [address] (30 min) Complex 01/22/2019 Referral: Lindsey Poole She needs to arrive 15 minutes early. Patient informed. Completed 01/04/2019 Visit Plan: Afib -patient is doing MUCH better -heart sounds regular today -shortness of breath, dizziness and nausea have resolved - continue same meds and follow up with fund director as scheduled. Patient verba lized understanding of plan. 12/22/2018 Appointment: Delmis Her WPtel: [address] [place], [place] [id number] [place] [phone] (30 min) Complex 12/22/2018 Patient Education: Patient [...] verbalized understanding of plan. Hypothyroidism-check labs today QJO-kkbgqvwxof-posyileu to monitor 12/19/2018 Visit Plan: Atrial Fibrillation -new onset-Dr Bermudez in to evaluate patient- will start patient on cardizem cd and eliquis -get EKG and labs today- schedule echo and refer to cardiology-instructed patient and her to go to ER if symptoms worsen or do not improve -patient and verbalized understanding of plan. Hypothyroidism-check labs today QJJ-liebuzzqol-fukmixam to monitor 12/19/2018 Visit Plan: Atrial Fibrillation -new onset-Dr Bermudez in to evaluate patient- will start patient on cardizem cd and eliquis -get EKG and labs today- schedule echo and refer to cardiology-instructed patient and her to go to ER if symptoms worsen or do not improve -patient and verbalized understanding of plan. Hypothyroidism-check labs today HGO-pzmaovehjt-uumqvonj to monitor 12/19/2018 Appointment: Delmis Her WPtel: [phone] ([facility] min) [facility] 12/19/2018 Patient Education: Patient Medication Summary Completed 12/19/2018 Patient Education: Elibarryis - 18+ - No HI MA NE Completed 12/19/2018 Care Plan: Cbc With Differential Pending 12/19/2018 Care Plan: Comp Metabolic Pending 12/19/2018 Care Plan: Tsh Pending 12/19/2018 Care Plan: Free T4 Pending 12/19/2018 Care Plan: Referral Order SNOMED-CT : [id number] Pending 12/19/2018 Visit Plan: Hypertension - well [...] worsen. 10/26/2018 Appointment: [facility] Her [facility]Ptel[facility] [phone] [phone] (15 min) Moderate 10/26/2018 Patient Education: Patient [...] control. 07/20/2018 Appointment: [facility] Her [facility]Ptel[facility] [phone] [phone] [place] (15 min) Moderate 07/20/2018 Patient Education: [...] start it 04/14/2018 Appointment: [facility]mis Her WPtel[facility] [phone] [phone] (15 min) Moderate 04/14/2018 Patient Education: Patient Medication Summary Completed 04/14/2018 Visit Plan: Diabetic peripheral neuropathy -paperwork for diabetic shoes completed today in the office and will fax to Dr Briscoe's office- Patient verbalized understanding of plan. 02/06/2018 Appointment: [facility]Ptel[facility] [phone] [phone] (15 min) Moderate 02/06/2018 Patient Education: Patient [...] control. 01/12/2018 Appointment: Delmis Her WPtel: [phone] [phone] (30 min) Complex 01/12/2018 Patient Education: [...] medications. 08/04/2017 Appointment: Delmis Her WPtel: [phone] [phone] (30 min) Complex 08/04/2017 Patient Education: Patient Medication Summary Completed 08/04/2017 Patient Education: Obesity Completed 08/04/2017 Care Plan: %Hba1C LOINC : 44090-0 Pending 08/04/2017 Visit Plan: Diverticulitis - rx for antibiotic sent to pt's pharmacy - pt advised to avoid seeds, nuts, popcorn, or any other food which has been proven to upset the pt's stomach. Call if symptoms do not improve or if any worse and we will check labs and CT scan. Patient verbalized understanding of plan. 07/19/2017 Appointment: Delmis Her [facility]Ptel[facility] [phone] [phone] (30 min) Complex 07/19/2017 Patient Education: Patient Medication Summary Completed 07/19/2017 Patient Education: Obesity Completed 07/19/2017 Visit Plan: Diabetic peripheral neuropathy - diabetes paperwork completed today in the office-patient does want to start medication-RX for gabapentin sent electronically and provided and instructed on use. Patient verbalized understanding of plan. 05/05/2017 Appointment: Delmis Her WPtel: [phone] [phone] (30 min) Complex 05/05/2017 Patient Education: Patient Medication Summary Completed 05/05/2017 Patient Education: Obesity Completed 05/05/2017 Appointment: Delmis Her WPtel: [phone] [facility] - Annual Wellness Visit 01/28/2017 Visit Plan: [...] kenalog 01/27/2017 Appointment: Ria Bermudez WPtel: [phone] [phone] (15 min) Moderate 01/27/2017 Patient Education: Patient Medication Summary Completed 01/27/2017 Patient Education: Obesity Completed 01/27/2017 Appointment: Ria Bermudez WPtel: [phone] [phone] (15 min) Moderate 01/11/2017 Visit Plan: Hypertension [...] me dications. 07/15/2016 Appointment: [facility]el[phone] (15 min) Moderate 07/15/2016 Patient Education: Patient [...] time. 03/16/2016 Appointment: R[facility] Bermudez WPtel: [phone] [facility] [place] (15 min) Moderate 03/16/2016 Patient Education: [...] are starting to become less controlled. Peripheral jfasqdhlyh-ML-emdejnos foot exam today in the office and [...] are starting to become less controlled. Peripheral nlupspfwcw-IE-wopxsgtw foot exam today in the office and [...] are starting to become less controlled. Peripheral exxkaetgst-BL-gholihta foot exam today in the office and paperwork completed for diabetic shoes-see scanned document 03/17/2015 Appointment: Ria Bermudez WPtel[facility] [phone] [facility] [place] (S[facility] New Patient 03/17/2015 Patient Education: Patient Medication Summary Completed 03/17/2015 Patient Education: Hypertension Completed 03/17/2015 Referral: Lindsey Poole Referral Appointment Requested Instructions Comment . Afib -patient is doing MUCH better -heart sounds regular today -shortness of breath, dizziness and nausea have resolved -continue same meds and follow up with fund director as scheduled. Patient verbalized understanding of plan. [...] are starting to become less controlled. Peripheral nwphtwzihe-AC-kotkcfsj foot exam today in the office and [...] are starting to become less controlled. Peripheral rmjzlefsnh-AA-ndsabmmr foot exam today in the office and [...] are starting to become less controlled. Peripheral sdtdhssjfk-OT-vwpqckrq foot exam today in the office and [...] HOSPITAL ECHO -WE WILL SCHEDULE REFER TO [employer] OPERATOR HELPER -DR POOLE . Atrial Fibrillation -new onset-Dr Bermudez in to evaluate patient- will start patient on cardizem cd and eliquis -get EKG and labs today- schedule echo and refer to cardiology-instructed patient and her to go to ER if symptoms worsen or do not improve -patient and verbalized understanding of plan. Hypothyroidism-check labs today BZU-envmouvktb-swvriczh to monitor CARDIZEM CD 120MG DAILY ELIQUIS 5MG TWICE DAILY -SAMPLES PROVIDED EKG AND LABS TODAY AT THE HOSPITAL ECHO -WE WILL SCHEDULE REFER TO [employer] PRESS OPERATOR HELPER -DR POOLE . Atrial Fibrillation -new onset-Dr Bermudez in to evaluate patient- will start patient on cardizem cd and eliquis -get EKG and labs today- schedule echo and refer to cardiology-instructed patient and her to go to ER if symptoms worsen or do not improve -patient and verbalized understanding of plan. Hypothyroidism-check labs today SKC-uwepbqozdb-zaxlyulx to monitor CARDIZEM CD 120MG DAILY ELIQUIS 5MG TWICE DAILY -SAMPLES PROVIDED EKG AND LABS TODAY AT THE HOSPITAL ECHO -WE WILL SCHEDULE REFER TO CAKE PRESS OPERATOR HELPER -DR POOLE . Atrial Fibrillation -new onset-Dr Bermudez in to evaluate patient- will start patient on cardizem cd and eliquis -get EKG and labs today- schedule echo and refer to cardiology-instructed patient and her to go to ER if symptoms worsen or do not improve -patient and verbalized understanding of plan. Hypothyroidism-check labs today YHL-tveflpbldj-svziattl to monitor check labs today . Hypertension [...]
--- OUTSIDE RECORDS SUMMARY | 2019-04-04 06:54 | XMS REPORT | CCD ---
Author Author Delmis Her Organization Ria Bermudez MD, [facility] Address [address] [place] [address] Phone Care Team Providers Care Ekg Manager Name Role Phone PP Unavailable CCM Unavailable Summary Purpose Interface Exchange Insurance Providers Payer name Policy type / Coverage type Covered republican ID Effective Begin Date Effective End Date WPS Medicare Part B Medicare Part B [id number] Unknown [facility] Medicare Part B [id number] Unknown Family history Son Diagnosis Age At [...] Unknown Retired 03/17/[address]: 068849607 Never smoker 03/17/[address]: 444729866 Never smoker 03/17/2015 Allergies, Adverse Reactions, Alerts Substance Reaction Codes Entered Date Inactivated Date Status * NO KNOWN FOOD ALLERGIES Unknown 03/17/2015 No Inactive Date Active ciprofloxacin RxNorm: 76480 03/17/2015 No Inactive Date Active Erythromycin RxNorm: 4053 03/17/2015 No Inactive Date Active Penicillin Unknown 03/17/2015 No Inactive Date Active [id number]-[id number]-KDY REDUCTASE INHIBITORS myalgias, Unknown 03/16/2016 No Inactive Date Active SULFA(SULFONAMIDE ANTIBIOTICS) Unknown 03/17/2015 No Inactive Date Active Past Medical History Illness Codes Condition Status Onset Date Resolved Date Essential (primary) hypertension ICD-9: 401.1 ICD-10: I10 [...] Problems Condition Codes Effective Dates Condition Status Essential (primary) hypertension ICD-9: 401.1 ICD-10: I10 [...] Instructions enalapril maleate 5 mg tablet RxNorm: 417523 TAKE ONE TABLET BY MOUTH DAILY 01/25/2019 01/19/2020 Active levothyroxine 100 mcg tablet RxNorm: 552604 TAKE ONE TABLET BY MOUTH EVERY OTHER DAY ALTERNATE WITH 112 MCG TABLET 01/16/2019 06/14/2019 Active Zetia 10 mg tablet RxNorm: 340729 1/2 Tablet(s) PO daily 12/19/2018 No Stop Date Active Cardizem CD 120 mg capsule,extended release RxNorm: 767666 1 Capsule(s) PO daily 12/19/2018 06/16/2019 Active Eliquis 5 mg tablet RxNorm: 3807689 1 Tablet(s) PO BID 12/19/2018 No Stop Date Active gabapentin 100 mg capsule RxNorm: 210924 TAKE ONE CAPSULE BY MOUTH EVERY NIGHT AT BEDTIME 12/11/2018 02/08/2019 Active levothyroxine 112 mcg tablet RxNorm: 643455 TAKE ONE TABLET BY MOUTH EVERY OTHER DAY ALTERNATE WITH 100MCG TABLET 12/07/2018 03/06/2019 Active Zetia 10 mg tablet RxNorm: 061053 1 Tablet(s) PO daily 10/26/2018 12/18/2018 Inactive Zetia 10 mg tablet RxNorm: 657679 1/2 Tablet(s) PO daily 07/20/2018 10/25/2018 Inactive indapamide 1.25 mg tablet RxNorm: 522355 Tablet(s) TAKE ONE TABLET BY MOUTH DAILY 07/19/2018 07/13/2019 Active levothyroxine 112 mcg tablet RxNorm: 830917 TAKE ONE TABLET BY MOUTH EVERY OTHER DAY ALTERNATE WITH 100MCG TABLET 07/19/2018 11/15/2018 Inactive gabapentin 100 mg capsule RxNorm: 225064 TAKE ONE CAPSULE BY MOUTH EVERY NIGHT AT BEDTIME 06/05/2018 09/02/2018 Inactive Zetia 10 mg tablet RxNorm: 403457 1 Tablet(s) PO daily 05/11/2018 07/19/2018 Inactive Zetia 10 mg tablet RxNorm: 823879 1 Tablet(s) PO daily 05/11/2018 05/10/2018 Inactive indapamide 1.25 mg tablet RxNorm: 684708 TAKE ONE TABLET BY MOUTH DAILY 04/05/2018 07/18/2018 Inactive enalapril maleate 5 mg tablet RxNorm: 003163 TAKE ONE TABLET BY MOUTH DAILY 04/05/2018 12/30/2018 Inactive levothyroxine 112 mcg tablet RxNorm: 247490 1 Tablet(s) PO every other day . ALTERNATE WITH 100 MCG TABLET. 01/24/2018 05/23/2018 Inactive Crestor 10 mg tablet RxNorm: 315510 1 Tablet(s) PO QHS 01/24/2018 04/13/2018 Inactive levothyroxine 100 mcg tablet RxNorm: 666538 Tablet(s) TAKE ONE TABLET BY MOUTH EVERY OTHER DAY. ALTERNATE WITH 112 MCG TABLET. 01/24/2018 05/23/2018 Inactive Crestor 10 mg tablet RxNorm: 112080 1 Tablet(s) PO QHS 01/24/2018 01/23/2018 Inactive gabapentin 100 mg capsule RxNorm: 939578 TAKE ONE CAPSULE BY MOUTH EVERY NIGHT AT BEDTIME 01/05/2018 06/04/2018 Inactive indapamide 1.25 mg tablet RxNorm: 080655 TAKE ONE TABLET BY MOUTH DAILY 01/05/2018 04/04/2018 Inactive Zocor 20 mg tablet RxNorm: 105795 TAKE ONE TABLET BY MOUTH DAILY 12/02/2017 01/11/2018 Inactive Phenergan-Codeine 6.25 mg-10 mg/5 mL syrup RxNorm: 764897 5-10 Milliliter(s) PO Q6 as needed cough 11/09/2017 No Stop Date Active Tamiflu 75 mg capsule RxNorm: 445163 1 Capsule(s) PO BID 11/09/2017 11/13/2017 Inactive Tamiflu 75 mg capsule RxNorm: 989629 1 Capsule(s) PO BID 11/09/2017 11/08/2017 Inactive levothyroxine 100 mcg tablet RxNorm: 478464 TAKE ONE TABLET BY MOUTH DAILY 10/28/2017 01/23/2018 Inactive indapamide 1.25 mg tablet RxNorm: 792933 TAKE ONE TABLET BY MOUTH DAILY 09/09/2017 01/04/2018 Inactive levothyroxine 100 mcg tablet RxNorm: 688546 1 Tablet(s) PO daily TAKE ONE TABLET BY MOUTH DAILY 08/04/2017 10/27/2017 Inactive Flagyl 500 mg tablet RxNorm: 580635 1 Tablet(s) PO TID 07/19/2017 07/28/2017 Inactive enalapril maleate 5 mg tablet RxNorm: 506997 TAKE ONE TABLET BY MOUTH DAILY 06/30/2017 12/26/2017 Inactive indapamide 1.25 mg tablet RxNorm: 918901 TAKE ONE TABLET BY MOUTH DAILY 05/26/2017 09/08/2017 Inactive Zocor 20 mg tablet RxNorm: 960177 TAKE ONE TABLET BY MOUTH DAILY 05/26/2017 10/22/2017 Inactive gabapentin 100 mg capsule RxNorm: 087673 1 Capsule(s) PO QHS 05/05/2017 09/01/2017 Inactive Kenalog 40 mg/mL suspension for injection RxNorm: 1938006 1 Milliliter(s) Inj 01/27/2017 01/27/2017 Inactive levothyroxine 112 mcg tablet RxNorm: 186492 TAKE ONE TABLET BY MOUTH DAILY 01/17/2017 08/03/2017 Inactive Zocor 20 mg tablet RxNorm: 929094 TAKE ONE TABLET BY MOUTH DAILY 11/08/2016 05/06/2017 Inactive indapamide 1.25 mg tablet RxNorm: 189949 TAKE ONE TABLET BY MOUTH DAILY 11/08/2016 05/06/2017 Inactive enalapril maleate 5 mg tablet RxNorm: 519510 TAKE ONE TABLET BY MOUTH DAILY 09/01/2016 05/28/2017 Inactive indapamide 1.25 mg tablet RxNorm: 690994 TAKE ONE TABLET BY MOUTH DAILY 08/02/2016 10/30/2016 Inactive Vitamin D2 50,000 unit capsule RxNorm: 204267 1 Capsule(s) PO QW 07/15/2016 01/17/2018 Inactive indapamide 1.25 mg tablet RxNorm: 360449 TAKE ONE TABLET BY MOUTH DAILY 04/29/2016 07/27/2016 Inactive Vitamin D2 50,000 unit capsule RxNorm: 668188 1 Capsule(s) PO QW 03/16/2016 07/14/2016 Inactive Zocor 20 mg tablet RxNorm: 202919 1 Tablet(s) PO daily 03/16/2016 10/11/2016 Inactive levothyroxine 112 mcg tablet RxNorm: 422498 TAKE ONE TABLET BY MOUTH DAILY 01/07/2016 12/31/2016 Inactive indapamide 1.25 mg tablet RxNorm: 308135 1 Tablet(s) PO daily 12/03/2015 03/31/2016 Inactive Vitamin D2 50,000 unit capsule RxNorm: 405978 1 Capsule(s) PO QW 09/26/2015 09/25/2015 Inactive Lipitor 10 mg tablet RxNorm: 980963 1 Tablet(s) PO daily 09/26/2015 03/15/2016 Inactive Vitamin D2 50,000 unit capsule RxNorm: 324987 1 Capsule(s) PO QW 09/26/2015 03/15/2016 Inactive enalapril maleate 5 mg tablet RxNorm: 887181 1 Tablet(s) PO daily 08/06/2015 07/30/2016 Inactive levothyroxine 112 mcg tablet RxNorm: 585602 1 Tablet(s) PO daily 04/04/2015 10/30/2015 Inactive Vitamin D3 2,000 unit capsule RxNorm: 472767 1 Capsule(s) PO daily No Start Date Active aspirin 500 mg tablet RxNorm: 783295 1 Tablet(s) PO daily No Start Date Active Co Q-10 oral RxNorm: 08743 oral No Start Date Active Phenergan-Codeine 6.25 mg-10 mg/5 mL syrup RxNorm: 879097 5-10 Milliliter(s) PO Q6 as needed cough No Start Date 11/08/2017 Inactive Lipitor 20 mg tablet RxNorm: 464516 1 Tablet(s) PO daily No Start Date 09/14/2015 Inactive indapamide 1.25 mg tablet RxNorm: 462343 1 Tablet(s) PO daily No Start Date 12/02/2015 Inactive enalapril maleate 5 mg tablet RxNorm: 032323 1 Tablet(s) PO daily No Start Date 08/05/2015 Inactive levothyroxine 112 mcg tablet RxNorm: 095239 1 Tablet(s) PO daily No Start Date 04/03/2015 Inactive Medication Administered Medication Codes Instructions Start Date Status Kenalog 40 mg/mL suspension for injection RxNorm: 2708827 1Milliliter 01/27/2017 No longer Active Immunizations Vaccine Codes Date Status Influenza CVX: 141 07/27/2018 completed Influenza CVX: 141 08/04/2017 completed Influenza CVX: 141 07/15/2016 completed Pneumococcal CVX: 133 07/25/2015 completed Zoster CVX: 121 07/25/2015 completed Assessments Condition Codes Effective Dates Type 2 diabetes mellitus without complications ICD-10: [...] Visit Reason For Visit Effective Dates Notes dizziness 01/23/2019 dizziness 12/22/2018 dizziness 12/19/2018 diabetes [...] (3rd IS) 2.55 uIU/mL 10/27/2018 Free T4 Hbv431 FREE T4 1.07 ng/dL 10/27/2018 Comp Metabolic Fub505 NA 138 mEq/L 10/26/2018 Comp Metabolic Hjn115 K 4.3 mEq/L 10/26/2018 Comp Metabolic Azh387 CL 102 mEq/L 10/26/2018 Comp Metabolic Kbk300 CO2 26.0 mEq/L 10/26/2018 Comp Metabolic Som542 ANION GAP 14 10/26/2018 Comp Metabolic Sal578 GLUCOSE 88 mg/dL 10/26/2018 Comp Metabolic Wks885 Creat 0.9 mg/dL 10/26/2018 Comp Metabolic Tfk188 eGFR 63 ml/min/1.73m2 10/26/2018 Comp Metabolic Fym888 BUN 25 mg/dL 10/26/2018 Comp Metabolic Qcy981 B/C Ratio 26.6 Ratio 10/26/2018 Comp Metabolic Inr082 CALCIUM 10.1 mg/dL 10/26/2018 Comp Metabolic Fjb976 ALK PHOS 77 U/L 10/26/2018 Comp Metabolic Cdz615 AST(SGOT) 16 U/L 10/26/2018 Comp Metabolic Paj349 ALT(SGPT) 16 U/L 10/26/2018 Comp Metabolic Lwu284 BILI T 0.5 mg/dL 10/26/2018 Comp Metabolic Jmi989 ALBUMIN 4.3 g/dL 10/26/2018 Comp Metabolic Nsn251 TPRO 6.8 g/dL 10/26/2018 Comp Metabolic Moc475 GLOB 2.5 g/dL 10/26/2018 Comp Metabolic Rhu557 A/G Ratio 1.7 Ratio 10/26/2018 Comp Metabolic Rgb927 Osmo 279 mOsmo 10/26/2018 %Hba1C Gzp892 % HbA1c 90044- 6 5.2 % 10/26/2018 %Hba1C Tiv462 Gluc Ave 103 mg/dL 10/26/2018 Cbc With [...] 29.1 pg 10/26/2018 Cbc With Differential Ord2 [place]% 9.6 % 10/26/2018 Cbc With Differential Ord2 [...] 1.94 K/ul 10/26/2018 Cbc With Differential Ord2 [place] ABS# 0.6 K/ul 10/26/2018 Cbc With Differential Ord2 Eos ABS# 0.1 K/ul 10/26/2018 Cbc With Differential Ord2 Baso ABS# 0.0 K/ul 10/26/2018 Lipid Ord30 CHOL 238 mg/dL 10/26/2018 Lipid Ord30 HDL 42.0 mg/dl 10/26/2018 Lipid Ord30 TRIG 270 mg/dL 10/26/2018 Lipid Ord30 LDL 142 mg/dL 10/26/2018 Lipid Ord30 C/HDL 5.7 Ratio 10/26/2018 %Hba1C Pmm393 % HbA1c 66200- 6 5.3 % 07/20/2018 %Hba1C Qdc130 Gluc Ave 105 mg/dL 07/20/2018 Comp Metabolic Nwx783 NA 139 mEq/L 07/20/2018 Comp Metabolic Les159 K 5.1 mEq/L 07/20/2018 Comp Metabolic Ksk242 CL 106 mEq/L 07/20/2018 Comp Metabolic Ncp226 CO2 19.0 mEq/L 07/20/2018 Comp Metabolic Lyq243 ANION GAP 19 07/20/2018 Comp Metabolic Tbq368 GLUCOSE 88 mg/dL 07/20/2018 Comp Metabolic Wjf393 Creat 0.8 mg/dL 07/20/2018 Comp Metabolic Dcs554 eGFR 77 ml/min/1.73m2 07/20/2018 Comp Metabolic Jsw387 BUN 25 mg/dL 07/20/2018 Comp Metabolic Tei768 B/C Ratio 31.6 Ratio 07/20/2018 Comp Metabolic Xns466 CALCIUM 10.0 mg/dL 07/20/2018 Comp Metabolic Ddp257 ALK PHOS 81 U/L 07/20/2018 Comp Metabolic Wev012 AST(SGOT) 26 U/L 07/20/2018 Comp Metabolic Ikv887 ALT(SGPT) 16 U/L 07/20/2018 Comp Metabolic Sld175 BILI T 0.5 mg/dL 07/20/2018 Comp Metabolic Uik186 ALBUMIN 4.5 g/dL 07/20/2018 Comp Metabolic Cno311 TPRO 7.2 g/dL 07/20/2018 Comp Metabolic Ozh026 GLOB 2.7 g/dL 07/20/2018 Comp Metabolic Lml325 A/G Ratio 1.6 Ratio 07/20/2018 Comp Metabolic Stq130 Osmo 281 mOsmo 07/20/2018 Free T4 Ccc599 FREE T4 1.00 ng/dL 07/20/2018 Tsh Ord6 TSH (3rd IS) 2.05 uIU/mL 07/20/2018 Vitamin D 25 Oh Bxa1410 VITAMIN D, 25 HYDROXY 57.07 ng/mL 07/20/2018 Lipid Ord30 CHOL 242 mg/dL 07/20/2018 Lipid Ord30 HDL 43.0 mg/dl 07/20/2018 Lipid Ord30 TRIG 314 mg/dL 07/20/2018 Lipid Ord30 LDL 136 mg/dL 07/20/2018 Lipid Ord30 C/HDL 5.6 Ratio 07/20/2018 Free T4 Brb651 FREE T4 1.24 ng/dL 04/14/2018 Tsh Ord6 TSH (3rd IS) 0.65 uIU/mL 04/14/2018 %Hba1C Xjd470 % HbA1c 18227- 6 5.1 % 01/12/2018 %Hba1C Nmj672 Gluc Ave 100 mg/dL 01/12/2018 Free T4 Zfx603 FREE T4 0.97 ng/dL 01/12/2018 Lipid Ord30 [...] 29.7 pg 01/12/2018 Cbc With Differential Ord2 [place]% 10.3 % 01/12/2018 Cbc With Differential Ord2 [...] 2.40 K/ul 01/12/2018 Cbc With Differential Ord2 [place] ABS# 0.8 K/ul 01/12/2018 Cbc With Differential Ord2 Eos ABS# 0.2 K/ul 01/12/2018 Cbc With Differential Ord2 Baso ABS# 0.0 K/ul 01/12/2018 Comp Metabolic Svz865 NA 138 mEq/L 01/12/2018 Comp Metabolic Bxa185 K 4.1 mEq/L 01/12/2018 Comp Metabolic Zxu974 CL 100 mEq/L 01/12/2018 Comp Metabolic Bfh523 CO2 28.0 mEq/L 01/12/2018 Comp Metabolic Lxl284 ANION GAP 14 01/12/2018 Comp Metabolic Clm870 GLUCOSE 84 mg/dL 01/12/2018 Comp Metabolic Bvu673 Creat 0.8 mg/dL 01/12/2018 Comp Metabolic Opc215 eGFR 78 ml/min/1.73m2 01/12/2018 Comp Metabolic Dqm472 BUN 20 mg/dL 01/12/2018 Comp Metabolic Iuw838 B/C Ratio 25.6 Ratio 01/12/2018 Comp Metabolic Vpo855 CALCIUM 9.6 mg/dL 01/12/2018 Comp Metabolic Ckl034 ALK PHOS 76 U/L 01/12/2018 Comp Metabolic Ylm498 AST(SGOT) 16 U/L 01/12/2018 Comp Metabolic Jhk512 ALT(SGPT) 16 U/L 01/12/2018 Comp Metabolic Wrm751 BILI T 0.4 mg/dL 01/12/2018 Comp Metabolic Jxg249 ALBUMIN 4.1 g/dL 01/12/2018 Comp Metabolic Jwt232 TPRO 6.7 g/dL 01/12/2018 Comp Metabolic Txy764 GLOB 2.6 g/dL 01/12/2018 Comp Metabolic Uap898 A/G Ratio 1.6 Ratio 01/12/2018 Comp Metabolic Emz576 Osmo 277 mOsmo 01/12/2018 Free T4 Yua660 FREE T4 1.40 ng/dL 08/05/2017 %Hba1C Ift573 % HbA1c 55359- 6 5.0 % 08/05/2017 %Hba1C Gfv027 Gluc Ave 97 mg/dL 08/05/2017 Cbc With [...] 29.5 pg 08/03/2017 Cbc With Differential Ord2 [place]% 9.3 % 08/03/2017 Cbc With Differential Ord2 [...] 2.10 K/ul 08/03/2017 Cbc With Differential Ord2 [place] ABS# 0.7 K/ul 08/03/2017 Cbc With Differential Ord2 Eos ABS# 0.1 K/ul 08/03/2017 Cbc With Differential Ord2 Baso ABS# 0.0 K/ul 08/03/2017 Vitamin D 25 Oh Ihs5280 VITAMIN D, 25 HYDROXY 52.73 ng/mL 08/03/2017 Lipid Ord30 CHOL 215 mg/dL 08/03/2017 Lipid Ord30 HDL 43.0 mg/dl 08/03/2017 Lipid Ord30 TRIG 278 mg/dL 08/03/2017 Lipid Ord30 LDL 116 mg/dL 08/03/2017 Lipid Ord30 C/HDL 5.0 Ratio 08/03/2017 Tsh Ord6 hTSH II 0.09 uIU/mL 08/03/2017 Comp Metabolic Rjh647 NA 137 mEq/L 08/03/2017 Comp Metabolic Yta737 K 4.3 mEq/L 08/03/2017 Comp Metabolic Wlh278 CL 102 mEq/L 08/03/2017 Comp Metabolic Qih800 CO2 24.0 mEq/L 08/03/2017 Comp Metabolic Edd103 ANION GAP 15 08/03/2017 Comp Metabolic Jug509 GLUCOSE 80 mg/dL 08/03/2017 Comp Metabolic Onv544 Creat 0.9 mg/dL 08/03/2017 Comp Metabolic Wqp929 eGFR 68 ml/min/1.73m2 08/03/2017 Comp Metabolic Juk388 BUN 18 mg/dL 08/03/2017 Comp Metabolic Cgr452 B/C Ratio 20.5 Ratio 08/03/2017 Comp Metabolic Eyx348 CALCIUM 9.7 mg/dL 08/03/2017 Comp Metabolic Mce354 ALK PHOS 68 U/L 08/03/2017 Comp Metabolic Egt242 AST(SGOT) 14 U/L 08/03/2017 Comp Metabolic Enh828 ALT(SGPT) 14 U/L 08/03/2017 Comp Metabolic Otk473 BILI T 0.6 mg/dL 08/03/2017 Comp Metabolic Zei086 ALBUMIN 4.0 g/dL 08/03/2017 Comp Metabolic Vej522 TPRO 6.4 g/dL 08/03/2017 Comp Metabolic Smm884 GLOB 2.4 g/dL 08/03/2017 Comp Metabolic Wck397 A/G Ratio 1.7 Ratio 08/03/2017 Comp Metabolic Rmz684 Osmo 275 mOsmo 08/03/2017 %Hba1C Awr954 % HbA1c 86528- 6 5.1 % 01/06/2017 %Hba1C Pci843 Gluc Ave 100 mg/dL 01/06/2017 Lipid Ord30 CHOL 223 mg/dL 01/06/2017 Lipid Ord30 HDL 44.0 mg/dl 01/06/2017 Lipid Ord30 TRIG 292 mg/dL 01/06/2017 Lipid Ord30 LDL 121 mg/dL 01/06/2017 Lipid Ord30 C/HDL 5.1 Ratio 01/06/2017 Tsh Ord6 hTSH II 0.99 uIU/mL 01/06/2017 Free T4 Lxc960 FREE T4 0.96 ng/dL 01/06/2017 Cbc With [...] 29.6 pg 01/06/2017 Cbc With Differential Ord2 [place]% 9.2 % 01/06/2017 Cbc With Differential Ord2 [...] 1.85 K/ul 01/06/2017 Cbc With Differential Ord2 [place] ABS# 0.6 K/ul 01/06/2017 Cbc With Differential Ord2 Eos ABS# 0.1 K/ul 01/06/2017 Cbc With Differential Ord2 Baso ABS# 0.0 K/ul 01/06/2017 Vitamin D 25 Oh Rus4291 VITAMIN D, 25 HYDROXY 35.10 ng/mL 01/06/2017 Comp Metabolic Unc192 NA 140 mEq/L 01/06/2017 Comp Metabolic Wea821 K 4.3 mEq/L 01/06/2017 Comp Metabolic Kqn596 CL 103 mEq/L 01/06/2017 Comp Metabolic Eft718 CO2 29.0 mEq/L 01/06/2017 Comp Metabolic Sak320 ANION GAP 12 01/06/2017 Comp Metabolic Zbu282 GLUCOSE 86 mg/dL 01/06/2017 Comp Metabolic Cmx348 Creat 0.8 mg/dL 01/06/2017 Comp Metabolic Hls662 eGFR 82 ml/min/1.73m2 01/06/2017 Comp Metabolic Tyr876 BUN 19 mg/dL 01/06/2017 Comp Metabolic Zgs062 B/C Ratio 25.3 Ratio 01/06/2017 Comp Metabolic Xxo259 CALCIUM 9.6 mg/dL 01/06/2017 Comp Metabolic Rbj612 ALK PHOS 77 U/L 01/06/2017 Comp Metabolic Ekr166 AST(SGOT) 16 U/L 01/06/2017 Comp Metabolic Jwj179 ALT(SGPT) 18 U/L 01/06/2017 Comp Metabolic Mpw214 BILI T 0.4 mg/dL 01/06/2017 Comp Metabolic Hbp640 ALBUMIN 4.1 g/dL 01/06/2017 Comp Metabolic Xbv186 TPRO 6.7 g/dL 01/06/2017 Comp Metabolic Dta973 GLOB 2.6 g/dL 01/06/2017 Comp Metabolic Cyk934 A/G Ratio 1.6 Ratio 01/06/2017 Comp Metabolic Aym654 Osmo 281 mOsmo 01/06/2017 Vitamin D 25 Oh Beq0888 VITAMIN D, 25 HYDROXY 42.77 ng/mL 07/09/2016 Free T4 Ibh065 FREE T4 1.23 ng/dL 07/08/2016 Comp Metabolic Ijv101 NA 136 mEq/L 07/08/2016 Comp Metabolic Ezq367 K 4.1 mEq/L 07/08/2016 Comp Metabolic Xkn889 CL 103 mEq/L 07/08/2016 Comp Metabolic Ekw232 CO2 26.0 mEq/L 07/08/2016 Comp Metabolic Wtx274 ANION GAP 11 07/08/2016 Comp Metabolic Cmo170 GLUCOSE 83 mg/dL 07/08/2016 Comp Metabolic Som102 Creat 0.8 mg/dL 07/08/2016 Comp Metabolic Prt961 eGFR 80 ml/min/1.73m2 07/08/2016 Comp Metabolic Wgq090 BUN 22 mg/dL 07/08/2016 Comp Metabolic Eoj781 B/C Ratio 28.9 Ratio 07/08/2016 Comp Metabolic Rgz989 CALCIUM 9.8 mg/dL 07/08/2016 Comp Metabolic Riv841 ALK PHOS 75 U/L 07/08/2016 Comp Metabolic Yfk567 AST(SGOT) 14 U/L 07/08/2016 Comp Metabolic Rql887 ALT(SGPT) 15 U/L 07/08/2016 Comp Metabolic Zef537 BILI T 0.4 mg/dL 07/08/2016 Comp Metabolic Rjj978 ALBUMIN 4.1 g/dL 07/08/2016 Comp Metabolic Vzk385 TPRO 6.6 g/dL 07/08/2016 Comp Metabolic Gjg210 GLOB 2.5 g/dL 07/08/2016 Comp Metabolic Vcb442 A/G Ratio 1.7 Ratio 07/08/2016 Comp Metabolic Vxk512 Osmo 274 mOsmo 07/08/2016 %Hba1C Tas973 % HbA1c 93488- 6 5.4 % 07/08/2016 %Hba1C Ydo165 Gluc Ave 108 mg/dL 07/08/2016 Cbc With [...] 29.8 pg 07/08/2016 Cbc With Differential Ord2 [place]% 10.1 % 07/08/2016 Cbc With Differential Ord2 [...] 1.89 K/ul 07/08/2016 Cbc With Differential Ord2 [place] ABS# 0.7 K/ul 07/08/2016 Cbc With Differential Ord2 Eos ABS# 0.2 K/ul 07/08/2016 Cbc With Differential Ord2 Baso ABS# 0.0 K/ul 07/08/2016 Tsh Ord6 hTSH II 0.21 uIU/mL 07/08/2016 Lipid Ord30 CHOL 210 mg/dL 07/08/2016 Lipid Ord30 HDL 41.0 mg/dl 07/08/2016 Lipid Ord30 TRIG 257 mg/dL 07/08/2016 Lipid Ord30 LDL 118 mg/dL 07/08/2016 Lipid Ord30 C/HDL 5.1 Ratio 07/08/2016 Vitamin D 25 Oh Kdf8891 VITAMIN D, 25 HYDROXY 34.38 ng/mL 03/10/2016 %Hba1C Htd285 % HbA1c 92476- 6 5.3 % 03/09/2016 %Hba1C Gqf411 Gluc Ave 105 mg/dL 03/09/2016 Comp Metabolic Hcg008 NA 137 mEq/L 03/09/2016 Comp Metabolic Qpr210 K 4.5 mEq/L 03/09/2016 Comp Metabolic Crb268 CL 104 mEq/L 03/09/2016 Comp Metabolic Psl560 CO2 27.0 mEq/L 03/09/2016 Comp Metabolic Vja908 ANION GAP 11 03/09/2016 Comp Metabolic Bqs621 GLUCOSE 86 mg/dL 03/09/2016 Comp Metabolic Jez272 Creat 0.8 mg/dL 03/09/2016 Comp Metabolic Uwc966 eGFR 81 ml/min/1.73m2 03/09/2016 Comp Metabolic Xbi319 BUN 23 mg/dL 03/09/2016 Comp Metabolic Enq497 B/C Ratio 30.3 Ratio 03/09/2016 Comp Metabolic Vbm272 CALCIUM 9.4 mg/dL 03/09/2016 Comp Metabolic Elv971 ALK PHOS 69 U/L 03/09/2016 Comp Metabolic Mnr048 AST(SGOT) 14 U/L 03/09/2016 Comp Metabolic Okb345 ALT(SGPT) 14 U/L 03/09/2016 Comp Metabolic Llk232 BILI T 0.4 mg/dL 03/09/2016 Comp Metabolic Hne671 ALBUMIN 4.1 g/dL 03/09/2016 Comp Metabolic Cpv593 TPRO 6.6 g/dL 03/09/2016 Comp Metabolic Ohl336 GLOB 2.5 g/dL 03/09/2016 Comp Metabolic Zna555 A/G Ratio 1.6 Ratio 03/09/2016 Comp Metabolic Eyq020 Osmo 277 mOsmo 03/09/2016 Tsh Ord6 hTSH [...] 28.9 pg 03/09/2016 Cbc With Differential Ord2 [place]% 11.1 % 03/09/2016 Cbc With Differential Ord2 [...] 2.16 K/ul 03/09/2016 Cbc With Differential Ord2 [place] ABS# 0.9 K/ul 03/09/2016 Cbc With Differential Ord2 Eos ABS# 0.1 K/ul 03/09/2016 Cbc With Differential Ord2 Baso ABS# 0.0 K/ul 03/09/2016 Lipid Ord30 CHOL 283 mg/dL 03/09/2016 Lipid Ord30 HDL 40.0 mg/dl 03/09/2016 Lipid Ord30 TRIG 271 mg/dL 03/09/2016 Lipid Ord30 LDL 189 mg/dL 03/09/2016 Lipid Ord30 C/HDL 7.1 Ratio 03/09/2016 Comp Metabolic Jcc157 NA 137 mEq/L 09/15/2015 Comp Metabolic Qie405 K 4.4 mEq/L 09/15/2015 Comp Metabolic Pzc693 CL 101 mEq/L 09/15/2015 Comp Metabolic Mmi717 CO2 28.0 mEq/L 09/15/2015 Comp Metabolic Zco735 ANION GAP 12 09/15/2015 Comp Metabolic Loi947 GLUCOSE 89 mg/dL 09/15/2015 Comp Metabolic Svu821 Creat 0.8 mg/dL 09/15/2015 Comp Metabolic Jhq258 eGFR 73 ml/min/1.73m2 09/15/2015 Comp Metabolic Rvj110 BUN 20 mg/dL 09/15/2015 Comp Metabolic Upt967 B/C Ratio 24.1 Ratio 09/15/2015 Comp Metabolic Njn808 CALCIUM 10.1 mg/dL 09/15/2015 Comp Metabolic Opg976 ALK PHOS 72 U/L 09/15/2015 Comp Metabolic Uop585 AST(SGOT) 16 U/L 09/15/2015 Comp Metabolic Xub451 ALT(SGPT) 15 U/L 09/15/2015 Comp Metabolic Yej207 BILI T 0.5 mg/dL 09/15/2015 Comp Metabolic Qgv197 ALBUMIN 4.4 g/dL 09/15/2015 Comp Metabolic Cjh388 TPRO 7.0 g/dL 09/15/2015 Comp Metabolic Qsj441 GLOB 2.6 g/dL 09/15/2015 Comp Metabolic Tzo207 A/G Ratio 1.7 Ratio 09/15/2015 Comp Metabolic Qhv823 Osmo 276 mOsmo 09/15/2015 Tsh Ord6 hTSH II 2.99 uIU/mL 09/15/2015 Vitamin D 25 Oh Cio1724 VITAMIN D, 25 HYDROXY 30.19 ng/mL 09/15/2015 [...] Lipid Ord30 C/HDL 7.0 Ratio 09/15/2015 %Hba1C Fii467 % HbA1c 53079- 6 5.2 % 09/15/2015 %Hba1C Dvw657 Gluc Ave 103 mg/dL 09/15/2015 Review of Systems System Result Effective Dates Constitutional No recent illness 01/23/2019 Constitutional No [...] 1994 Ears/Nose/Throat oral cavity/pharynx/larynx Overall: no masses 10/26/2018 [...] Formatting Model/CDA Sections, Assigned to/Margarita Brock CPT-4: [id number] 07/27/2018 FLU VAC NO PRSV 4 SHANNON 3 YRS+ CPT-4: 17494 08/04/2017 ADMIN INFLUENZA VIRUS VAC CPT-4: G0008 08/04/2017 TRIAMCINOLONE ACET INJ NOS CPT-4: J3301 01/27/2017 THER/PROPH/DIAG INJ SC/IM CPT-4: 34958 01/27/2017 ADMIN INFLUENZA VIRUS VAC CPT-4: G0008 07/15/2016 FLU VACC 4 SHANNON 3 YRS PLUS IM SNOMED CT: [id number] CPT-4: 04524 07/15/2016 Vital Signs Date Vital 01/23/2019 Blood Pressure 1: 108/62 Code: 8480-6 Heart Rate 1: 56 bpm Height: SpO2: 99% Weight: 197 lbs 12/22/2018 Blood Pressure 1: 140/74 Code: 8480-6 Heart Rate 1: 59 bpm Height: 5'4" SpO2: 99% Weight: 12/19/2018 Blood Pressure 1: 128/78 Code: 8480-6 Heart Rate 1: 96 bpm Height: 5'4" SpO2: 97% Weight: 10/26/2018 Blood Pressure 1: 132/76 Code: 8480-6 BMI: 34.5 Code: 24019-7 Heart Rate 1: 55 bpm Height: 5'4" SpO2: 99% Weight: 204 lbs 07/20/2018 Blood Pressure 1: 116/74 Code: 8480-6 BMI: 34.5 Code: 53814-4 Heart Rate 1: 52 bpm Height: 5'4" SpO2: 99% Weight: 204 lbs 04/14/2018 Blood Pressure 1: 128/76 Code: 8480-6 BMI: 34.5 Code: 76506-9 Heart Rate 1: 67 bpm Height: 5'4" SpO2: 95% Weight: 204 lbs 02/06/2018 Blood Pressure 1: 142/78 Code: 8480-6 BMI: 35.2 Code: 70263-8 Heart Rate 1: 58 bpm Height: 5'4" SpO2: 98% Weight: 208 lbs 01/12/2018 Blood Pressure 1: 132/82 Code: 8480-6 BMI: 34.8 Code: 39258-4 Height: 5'4" Weight: 206 lbs 08/04/2017 Blood Pressure 1: 140/82 Code: 8480-6 BMI: 31.9 Code: 81986-6 Heart Rate 1: 58 bpm Height: 5'4" SpO2: 99% Weight: 188 lbs 8 oz 07/19/2017 Blood Pressure 1: 136/76 Code: 8480-6 BMI: 32.0 Code: 73523-6 Heart Rate 1: 67 bpm Height: 5'4" SpO2: 97% Weight: 189 lbs 8 oz 05/05/2017 Blood Pressure 1: 142/80 Code: 8480-6 BMI: 32.4 Code: 72238-5 Heart Rate 1: 54 bpm Height: 5'4" SpO2: 98% Weight: 191 lbs 8 oz 01/27/2017 Blood Pressure 1: 132/82 Code: 8480-6 BMI: 34.1 Code: 90827-7 Heart Rate 1: 55 bpm Height: 5'4" SpO2: 99% Weight: 202 lbs 07/15/2016 Blood Pressure 1: 128/72 Code: 8480-6 BMI: 34.4 Code: 25031-6 Heart Rate 1: 50 bpm Height: 5'4" SpO2: 98% Weight: 203 lbs 8 oz 03/16/2016 Blood Pressure 1: 118/78 Code: 8480-6 BMI: 34.5 Code: 81431-8 Heart Rate 1: 55 bpm Height: 5'4" SpO2: 98% Weight: 204 lbs 09/15/2015 Blood Pressure 1: 134/72 Code: 8480-6 BMI: 34.6 Code: 70154-6 Heart Rate 1: 52 bpm Height: 5'4" SpO2: 99% Weight: 205 lbs 03/17/2015 Blood Pressure 1: 128/74 Code: 8480-6 BMI: 35.8 Code: 07244-1 Heart Rate 1: 59 bpm Height: 5'4" SpO2: 98% Weight: 212 lbs Functional Status No Functional Status data History of Present Illness Symptom Name Status Result Effective Date Notes Quality feelings of unsteadiness 01/23/2019 None Quality [...] data Encounters Encounter Performer Location Codes Date ([id number]) [id number] EST. PATIENT, LEVEL IV Diagnosis: Essential (primary) hypertension[ICD10: I10] Diagnosis: Type 2 diabetes mellitus without complications[ICD10: E11.9] Diagnosis: Paroxysmal atrial fibrillation[ICD10: I48.0] Delmis Bermudez MD, [facility] CPT-4: 71083 01/23/2019 ([id number]) Miscellaneous no charge Diagnosis: Paroxysmal atrial fibrillation[ICD10: I48.0] Delmis Bermudez MD, [facility] CPT-4: 93871 12/22/2018 ([id number]) 40837 EST. PATIENT, LEVEL IV Diagnosis: Paroxysmal atrial fibrillation[ICD10: I48.0] Diagnosis: Hypothyroidism, unspecified[ICD10: E03.9] Diagnosis: Essential (primary) hypertension[ICD10: I10] Ria Bermudez MD, [facility] CPT-4: 37132 12/19/2018 ([id number]) 39423 EST. PATIENT, LEVEL IV Diagnosis: Essential (primary) hypertension[ICD10: I10] Diagnosis: Type 2 diabetes mellitus with diabetic polyneuropathy[ICD10: E11.42] Diagnosis: Hypothyroidism, unspecified[ICD10: E03.9] Diagnosis: Mixed hyperlipidemia[ICD10: E78.2] Diagnosis: Lumbago with sciatica, right side[ICD10: M54.41] Delmis Bermudez MD, [facility] CPT-4: 56232 10/26/2018 ([id number]) 91203 EST. PATIENT, LEVEL IV Diagnosis: Type 2 diabetes mellitus with diabetic polyneuropathy[ICD10: E11.42] Diagnosis: Mixed hyperlipidemia[ICD10: E78.2] Diagnosis: Essential (primary) hypertension[ICD10: I10] Diagnosis: Vitamin D deficiency, unspecified[ICD10: E55.9] Diagnosis: Hypothyroidism, unspecified[ICD10: E03.9] Delmis Bermudez MD, [facility] CPT-4: 99085 07/20/2018 ([id number]) 77319 EST. PATIENT, LEVEL IV Diagnosis: Essential (primary) hypertension[ICD10: I10] Diagnosis: Hypothyroidism, unspecified[ICD10: E03.9] Diagnosis: Mixed hyperlipidemia[ICD10: E78.2] [facility] CPT- 4: 74756 04/14/2018 ([id number]) 77237 EST. PATIENT, LEVEL III Diagnosis: Type 2 diabetes mellitus with diabetic polyneuropathy[ICD10: E11.42] Delmis Bermudez MD, [facility] CPT-4: 01308 02/06/2018 ([id number]) 13813 EST. PATIENT, LEVEL IV Diagnosis: Mixed hyperlipidemia[ICD10: E78.2] Diagnosis: Hypothyroidism, unspecified[ICD10: E03.9] Diagnosis: Type 2 diabetes mellitus without complications[ICD10: E11.9] Delmis Bermudez MD, [facility] CPT-4: 16463 01/12/2018 ([id number]) 10162 EST. PATIENT, LEVEL IV Diagnosis: Essential (primary) hypertension[ICD10: I10] Diagnosis: Mixed hyperlipidemia[ICD10: E78.2] Diagnosis: Hypothyroidism, unspecified[ICD10: E03.9] Diagnosis: Type 2 diabetes mellitus without complications[ICD10: E11.9] Diagnosis: Encounter for immunization[ICD10: Z23] Delmis Bermudez MD, [facility] CPT-4: 32619 08/04/2017 ([id number]) 53524 EST. PATIENT, LEVEL III Diagnosis: Diverticulitis of large intestine without perforation or abscess without bleeding[ICD10: K57.32] Delmis Bermudez MD, [facility] CPT-4: 60579 07/19/2017 ([id number]) 53834 EST. PATIENT, LEVEL III Diagnosis: Type 2 diabetes mellitus with diabetic polyneuropathy[ICD10: E11.42] Delmis Bermudez MD, [facility] CPT-4: 82333 05/05/2017 ([id number]) 87779 EST. PATIENT, LEVEL IV Diagnosis: Essential (primary) hypertension[ICD10: I10] Diagnosis: Type 2 diabetes mellitus without complications[ICD10: E11.9] Diagnosis: Mixed hyperlipidemia[ICD10: E78.2] Diagnosis: Allergic rhinitis due to pollen[ICD10: J30.1] Ria Bermudez MD, [facility] CPT-4: 27622 01/27/2017 ([id number]) 83058 EST. PATIENT, LEVEL IV Diagnosis: Type 2 diabetes mellitus without complications[ICD10: E11.9] Diagnosis: Essential (primary) hypertension[ICD10: I10] Diagnosis: Mixed hyperlipidemia[ICD10: E78.2] Ria Bermudez MD, [facility] CPT- 4: 96996 07/15/2016 ([id number]) 31494 EST. PATIENT, LEVEL IV Diagnosis: Type 2 diabetes mellitus without complications[ICD10: E11.9] Diagnosis: Polyneuropathy, unspecified[ICD10: G62.9] Diagnosis: Mixed hyperlipidemia[ICD10: E78.2] Ria Bermudez MD, [facility] CPT- 4: 57550 03/16/2016 ([id number]) 28654 EST. PATIENT, LEVEL IV Diagnosis: Type 2 diabetes mellitus without complications[ICD10: E11.9] Diagnosis: Essential (primary) hypertension[ICD10: I10] Diagnosis: Vitamin D deficiency, unspecified[ICD10: E55.9] Diagnosis: Mixed hyperlipidemia[ICD10: E78.2] [facility] CPT- 4: 09758 09/15/2015 ([id number]) OFFICE VISIT, NEW - LEVEL 4 Diagnosis: ESSENTIAL HYPERTENSION[ICD9: 401.9] Diagnosis: Diabetes mellitus type 2, controlled[ICD9: 250.00] Diagnosis: Peripheral neuropathy[ICD9: 356.9] Delmis Bermudez MD, [facility] CPT- 4: 97134 03/17/2015 Plan of Care Planned Activity Notes Codes Status Date Visit Plan: Hypertension - well controlled - [...] less controlled. 01/23/2019 [phone] [phone] (15 min) Moderate 01/23/2019 Patient Education: Patient Medication Summary Completed 01/23/2019 Patient Education: Diabetes Completed 01/23/2019 Appointment: [phone] [phone] (30 min) Complex 01/22/2019 Referral: Lindsey Poole She needs to arrive 15 minutes early. Patient informed. Completed 01/04/2019 Visit Plan: Afib -patient is doing MUCH better -heart sounds regular today -shortness of breath, dizziness and nausea have resolved - continue same meds and follow up with compress trucker as scheduled. Patient irineo lized understanding of plan. 12/22/2018 Appointment: Delmis Her [facility]Ptel[facility] [phone] (30 min) Complex 12/22/2018 Patient Education: Patient [...] verbalized understanding of plan. Hypothyroidism-check labs today LWM-jrvtttrtfj-eobqibod to monitor 12/19/2018 Visit Plan: Atrial Fibrillation -new onset-Dr Bermudez in to evaluate patient- will start patient on cardizem cd and eliquis -get EKG and labs today- schedule echo and refer to cardiology-instructed patient and her to go to ER if symptoms worsen or do not improve -patient and verbalized understanding of plan. Hypothyroidism-check labs today CVD-msgktsqmdp-uswjacrk to monitor 12/19/2018 Visit Plan: Atrial Fibrillation -new onset-Dr Bermudez in to evaluate patient- will start patient on cardizem cd and eliquis -get EKG and labs today- schedule echo and refer to cardiology-instructed patient and her to go to ER if symptoms worsen or do not improve -patient and verbalized understanding of plan. Hypothyroidism-check labs today PZZ-eyzfprtdjg-abbsngnr to monitor 12/19/2018 Appointment: Delmis Her WPtel: [facility] [phone] [place] (30 min) Complex 12/19/2018 Patient Education: Patient Medication Summary Completed 12/19/2018 Patient Education: Eliquis - 18+ - No HI GEETHA NE Completed 12/19/2018 Care Plan: Cbc With Differential Pending 12/19/2018 Care Plan: Comp Metabolic Pending 12/19/2018 Care Plan: Tsh Pending 12/19/2018 Care Plan: Free T4 Pending 12/19/2018 Care Plan: Referral Order SNOMED-CT : [id number] Pending 12/19/2018 Visit Plan: Hypertension - well [...] 10/26/2018 Appointment: [phone] [phone] (15 min) Moderate 10/26/2018 Patient Education: [...] of control. 07/20/2018 Appointment: Delmis Her WPtel: [facility] [phone] (15 min) Moderate 07/20/2018 Patient Education: Patient [...] start it 04/14/2018 Appointment: Delmis Her WPtel: [phone] [phone] [place] (15 min) Moderate 04/14/2018 Patient Education: Patient Medication Summary Completed 04/14/2018 Visit Plan: Diabetic peripheral neuropathy -paperwork for diabetic shoes completed today in the office and will fax to Dr Briscoe's office- Patient verbalized understanding of plan. 02/06/2018 Appointment: [facility]mis Her [facility]Ptel[facility] [phone] [phone] (15 min) Moderate 02/06/2018 Patient Education: [...] control. 01/12/2018 Appointment: [facility]Ptel[phone] [phone] (30 min) Complex 01/12/2018 Patient Education: Patient [...] to medications. 08/04/2017 Appointment: Delmis Her WPtel: [facility] [phone] (30 min) Complex 08/04/2017 Patient Education: Patient Medication Summary Completed 08/04/2017 Patient Education: Obesity Completed 08/04/2017 Care Plan: %Hba1C LOINC : 04136-2 Pending 08/04/2017 Visit Plan: Diverticulitis - rx for antibiotic sent to pt's pharmacy - pt advised to avoid seeds, nuts, popcorn, or any other food which has been proven to upset the pt's stomach. Call if symptoms do not improve or if any worse and we will check labs and CT scan. Patient verbalized understanding of plan. 07/19/2017 Appointment: Delmis Her WPtel: [facility] [phone] (30 min) Complex 07/19/2017 Patient Education: Patient Medication Summary Completed 07/19/2017 Patient Education: Obesity Completed 07/19/2017 Visit Plan: Diabetic peripheral neuropathy - diabetes paperwork completed today in the office-patient does want to start medication-RX for gabapentin sent electronically and provided and instructed on use. Patient verbalized understanding of plan. 05/05/2017 Appointment: Delmis Her WPtel: [facility] [place] [phone] (30 min) Complex 05/05/2017 Patient Education: Patient Medication Summary Completed 05/05/2017 Patient Education: Obesity Completed 05/05/2017 Appointment: Delmis Her WPtel: [address] [place], [place] [phone] [facility] - Annual Wellness Visit 01/28/2017 Visit [...] kenalog 01/27/2017 Appointment: Ria Bermudez WPtel: [phone] [phone] (15 min) Moderate 01/27/2017 Patient Education: Patient Medication Summary Completed 01/27/2017 Patient Education: Obesity Completed 01/27/2017 Appointment: Ria Bermudez WPtel: [phone] [phone] (15 min) Moderate 01/11/2017 Visit Plan: Hypertension [...] me dications. 07/15/2016 Appointment: Ria Bermudez WPtel: [phone] [phone] (15 min) Moderate 07/15/2016 Patient Education: Patient [...] time. 03/16/2016 Appointment: [phone] [place] (15 min) Moderate 03/16/2016 Patient Education: [...] are starting to become less controlled. Peripheral ezdrjzfytz-KK-hpqdiibg foot exam today in the office and [...] are starting to become less controlled. Peripheral izdjlosyaz-LK-ahenwxoi foot exam today in the office and [...] are starting to become less controlled. Peripheral ibzfrlipvj-YI-ngczwxug foot exam today in the office and paperwork completed for diabetic shoes-see scanned document 03/17/2015 Appointment: [facility]ermudez [facility]Ptel[phone] [phone] [place] ([place] New Patient 03/17/2015 Patient Education: Patient Medication Summary Completed 03/17/2015 Patient Education: Hypertension Completed 03/17/2015 Referral: Lindsey Poole Referral Appointment Requested Instructions Comment . Afib -patient is doing MUCH better -heart sounds regular today -shortness of breath, dizziness and nausea have resolved -continue same meds and follow up with compress trucker as scheduled. Patient verbalized understanding of plan. [...] are starting to become less controlled. Peripheral wfefhpbliu-ZR-kvecocdv foot exam today in the office and [...] are starting to become less controlled. Peripheral bxyiqosvtm-DP-absiquhd foot exam today in the office and [...] are starting to become less controlled. Peripheral lajvwuqdxb-HM-udwjosxj foot exam today in the office and [...] HOSPITAL ECHO -WE WILL SCHEDULE REFER TO STRAIGHTENING PRESS OPERATOR -DR POOLE . Atrial Fibrillation -new onset-Dr Bermudez in to evaluate patient- will start patient on cardizem cd and eliquis -get EKG and labs today- schedule echo and refer to cardiology-instructed patient and her to go to ER if symptoms worsen or do not improve -patient and verbalized understanding of plan. Hypothyroidism-check labs today DKI-izwgrsoxpc-hsbkqpth to monitor CARDIZEM CD 120MG DAILY ELIQUIS 5MG TWICE DAILY -SAMPLES PROVIDED EKG AND LABS TODAY AT THE HOSPITAL ECHO -WE WILL SCHEDULE REFER TO STRAIGHTENING PRESS OPERATOR -DR POOLE . Atrial Fibrillation -new onset-Dr Bermudez in to evaluate patient- will start patient on cardizem cd and eliquis -get EKG and labs today- schedule echo and refer to cardiology-instructed patient and her to go to ER if symptoms worsen or do not improve -patient and verbalized understanding of plan. Hypothyroidism-check labs today MDP-nqtgnvrtfc-ulpoqzls to monitor CARDIZEM CD 120MG DAILY ELIQUIS 5MG TWICE DAILY -SAMPLES PROVIDED EKG AND LABS TODAY AT THE HOSPITAL ECHO -WE WILL SCHEDULE REFER TO STRAIGHTENING PRESS OPERATOR -DR POOLE . Atrial Fibrillation -new onset-Dr Bermudez in to evaluate patient- will start patient on cardizem cd and eliquis -get EKG and labs today- schedule echo and refer to cardiology-instructed patient and her to go to ER if symptoms worsen or do not improve -patient and verbalized understanding of plan. Hypothyroidism-check labs today FOR-pgvexsralf-ovdpuwre to monitor check labs today . Hypertension [...]
--- OUTSIDE RECORDS SUMMARY | 2019-04-04 06:56 | XMS REPORT | CCD ---
Author Author Delmis Her Organization Rai Bermudez MD, [facility] Address [address] [place] [address] Phone Care Team Providers Care Inbound Telemarketer Name Role Phone PP Unavailable CCM Unavailable Summary Purpose Interface Exchange Insurance Providers Payer name Policy type / Coverage type Covered democrat ID Effective Begin Date Effective End Date WPS Medicare Part B Medicare Part B [id number] Unknown [facility] Medicare Part B [id number] Unknown Family history Son Diagnosis Age At [...] Unknown Retired 03/17/[address]: 387291325 Never smoker 03/17/[address]: 519366582 Never smoker 03/17/2015 Allergies, Adverse Reactions, Alerts Substance Reaction Codes Entered Date Inactivated Date Status * NO KNOWN FOOD ALLERGIES Unknown 03/17/2015 No Inactive Date Active ciprofloxacin RxNorm: 64656 03/17/2015 No Inactive Date Active Erythromycin RxNorm: 4053 03/17/2015 No Inactive Date Active Penicillin Unknown 03/17/2015 No Inactive Date Active LBGXQAN-WNT-QEU REDUCTASE INHIBITORS myalgias, Unknown 03/16/2016 No Inactive [...] Start Date Stop Date Status Fill Instructions levothyroxine 100 mcg tablet RxNorm: 051944 TAKE ONE TABLET BY MOUTH EVERY OTHER DAY ALTERNATE WITH 112 MCG TABLET 01/16/2019 06/14/2019 Active Zetia 10 mg tablet RxNorm: 332573 1/2 Tablet(s) PO daily 12/19/2018 No Stop Date Active Cardizem CD 120 mg capsule,extended release RxNorm: 828208 1 Capsule(s) PO daily 12/19/2018 06/16/2019 Active Eliquis 5 mg tablet RxNorm: 9202589 1 Tablet(s) PO BID 12/19/2018 No Stop Date Active gabapentin 100 mg capsule RxNorm: 529357 TAKE ONE CAPSULE BY MOUTH EVERY NIGHT AT BEDTIME 12/11/2018 02/08/2019 Active levothyroxine 112 mcg tablet RxNorm: 768351 TAKE ONE TABLET BY MOUTH EVERY OTHER DAY ALTERNATE WITH 100MCG TABLET 12/07/2018 03/06/2019 Active Zetia 10 mg tablet RxNorm: 900609 1 Tablet(s) PO daily 10/26/2018 12/18/2018 Inactive Zetia 10 mg tablet RxNorm: 870341 1/2 Tablet(s) PO daily 07/20/2018 10/25/2018 Inactive indapamide 1.25 mg tablet RxNorm: 702746 Tablet(s) TAKE ONE TABLET BY MOUTH DAILY 07/19/2018 07/13/2019 Active levothyroxine 112 mcg tablet RxNorm: 416545 TAKE ONE TABLET BY MOUTH EVERY OTHER DAY ALTERNATE WITH 100MCG TABLET 07/19/2018 11/15/2018 Inactive gabapentin 100 mg capsule RxNorm: 284327 TAKE ONE CAPSULE BY MOUTH EVERY NIGHT AT BEDTIME 06/05/2018 09/02/2018 Inactive Zetia 10 mg tablet RxNorm: 428498 1 Tablet(s) PO daily 05/11/2018 07/19/2018 Inactive Zetia 10 mg tablet RxNorm: 176813 1 Tablet(s) PO daily 05/11/2018 05/10/2018 Inactive indapamide 1.25 mg tablet RxNorm: 889988 TAKE ONE TABLET BY MOUTH DAILY 04/05/2018 07/18/2018 Inactive enalapril maleate 5 mg tablet RxNorm: 511603 TAKE ONE TABLET BY MOUTH DAILY 04/05/2018 12/30/2018 Inactive levothyroxine 112 mcg tablet RxNorm: 631146 1 Tablet(s) PO every other day . ALTERNATE WITH 100 MCG TABLET. 01/24/2018 05/23/2018 Inactive Crestor 10 mg tablet RxNorm: 868974 1 Tablet(s) PO QHS 01/24/2018 04/13/2018 Inactive levothyroxine 100 mcg tablet RxNorm: 560653 Tablet(s) TAKE ONE TABLET BY MOUTH EVERY OTHER DAY. ALTERNATE WITH 112 MCG TABLET. 01/24/2018 05/23/2018 Inactive Crestor 10 mg tablet RxNorm: 141817 1 Tablet(s) PO QHS 01/24/2018 01/23/2018 Inactive gabapentin 100 mg capsule RxNorm: 380422 TAKE ONE CAPSULE BY MOUTH EVERY NIGHT AT BEDTIME 01/05/2018 06/04/2018 Inactive indapamide 1.25 mg tablet RxNorm: 166975 TAKE ONE TABLET BY MOUTH DAILY 01/05/2018 04/04/2018 Inactive Zocor 20 mg tablet RxNorm: 599030 TAKE ONE TABLET BY MOUTH DAILY 12/02/2017 01/11/2018 Inactive Phenergan-Codeine 6.25 mg-10 mg/5 mL syrup RxNorm: 254399 5-10 Milliliter(s) PO Q6 as needed cough 11/09/2017 No Stop Date Active Tamiflu 75 mg capsule RxNorm: 499472 1 Capsule(s) PO BID 11/09/2017 11/13/2017 Inactive Tamiflu 75 mg capsule RxNorm: 558697 1 Capsule(s) PO BID 11/09/2017 11/08/2017 Inactive levothyroxine 100 mcg tablet RxNorm: 673167 TAKE ONE TABLET BY MOUTH DAILY 10/28/2017 01/23/2018 Inactive indapamide 1.25 mg tablet RxNorm: 455878 TAKE ONE TABLET BY MOUTH DAILY 09/09/2017 01/04/2018 Inactive levothyroxine 100 mcg tablet RxNorm: 718212 1 Tablet(s) PO daily TAKE ONE TABLET BY MOUTH DAILY 08/04/2017 10/27/2017 Inactive Flagyl 500 mg tablet RxNorm: 805699 1 Tablet(s) PO TID 07/19/2017 07/28/2017 Inactive enalapril maleate 5 mg tablet RxNorm: 838932 TAKE ONE TABLET BY MOUTH DAILY 06/30/2017 12/26/2017 Inactive indapamide 1.25 mg tablet RxNorm: 137830 TAKE ONE TABLET BY MOUTH DAILY 05/26/2017 09/08/2017 Inactive Zocor 20 mg tablet RxNorm: 865932 TAKE ONE TABLET BY MOUTH DAILY 05/26/2017 10/22/2017 Inactive gabapentin 100 mg capsule RxNorm: 813612 1 Capsule(s) PO QHS 05/05/2017 09/01/2017 Inactive Kenalog 40 mg/mL suspension for injection RxNorm: 9131471 1 Milliliter(s) Inj 01/27/2017 01/27/2017 Inactive levothyroxine 112 mcg tablet RxNorm: 246700 TAKE ONE TABLET BY MOUTH DAILY 01/17/2017 08/03/2017 Inactive Zocor 20 mg tablet RxNorm: 540959 TAKE ONE TABLET BY MOUTH DAILY 11/08/2016 05/06/2017 Inactive indapamide 1.25 mg tablet RxNorm: 783223 TAKE ONE TABLET BY MOUTH DAILY 11/08/2016 05/06/2017 Inactive enalapril maleate 5 mg tablet RxNorm: 503179 TAKE ONE TABLET BY MOUTH DAILY 09/01/2016 05/28/2017 Inactive indapamide 1.25 mg tablet RxNorm: 270925 TAKE ONE TABLET BY MOUTH DAILY 08/02/2016 10/30/2016 Inactive Vitamin D2 50,000 unit capsule RxNorm: 663268 1 Capsule(s) PO QW 07/15/2016 01/17/2018 Inactive indapamide 1.25 mg tablet RxNorm: 369472 TAKE ONE TABLET BY MOUTH DAILY 04/29/2016 07/27/2016 Inactive Vitamin D2 50,000 unit capsule RxNorm: 990816 1 Capsule(s) PO QW 03/16/2016 07/14/2016 Inactive Zocor 20 mg tablet RxNorm: 479628 1 Tablet(s) PO daily 03/16/2016 10/11/2016 Inactive levothyroxine 112 mcg tablet RxNorm: 806422 TAKE ONE TABLET BY MOUTH DAILY 01/07/2016 12/31/2016 Inactive indapamide 1.25 mg tablet RxNorm: 501345 1 Tablet(s) PO daily 12/03/2015 03/31/2016 Inactive Vitamin D2 50,000 unit capsule RxNorm: 022720 1 Capsule(s) PO QW 09/26/2015 09/25/2015 Inactive Lipitor 10 mg tablet RxNorm: 787894 1 Tablet(s) PO daily 09/26/2015 03/15/2016 Inactive Vitamin D2 50,000 unit capsule RxNorm: 103955 1 Capsule(s) PO QW 09/26/2015 03/15/2016 Inactive enalapril maleate 5 mg tablet RxNorm: 700767 1 Tablet(s) PO daily 08/06/2015 07/30/2016 Inactive levothyroxine 112 mcg tablet RxNorm: 289827 1 Tablet(s) PO daily 04/04/2015 10/30/2015 Inactive Vitamin D3 2,000 unit capsule RxNorm: 166841 1 Capsule(s) PO daily No Start Date Active aspirin 500 mg tablet RxNorm: 136130 1 Tablet(s) PO daily No Start Date Active Co Q-10 oral RxNorm: 53713 oral No Start Date Active Phenergan-Codeine 6.25 mg-10 mg/5 mL syrup RxNorm: 732237 5-10 Milliliter(s) PO Q6 as needed cough No Start Date 11/08/2017 Inactive Lipitor 20 mg tablet RxNorm: 068836 1 Tablet(s) PO daily No Start Date 09/14/2015 Inactive indapamide 1.25 mg tablet RxNorm: 405923 1 Tablet(s) PO daily No Start Date 12/02/2015 Inactive enalapril maleate 5 mg tablet RxNorm: 110454 1 Tablet(s) PO daily No Start Date 08/05/2015 Inactive levothyroxine 112 mcg tablet RxNorm: 462565 1 Tablet(s) PO daily No Start Date 04/03/2015 Inactive Medication Administered Medication Codes Instructions Start Date Status Kenalog 40 mg/mL suspension for injection RxNorm: 9725297 1Milliliter 01/27/2017 No longer Active Immunizations Vaccine [...] (3rd IS) 2.55 uIU/mL 10/27/2018 Free T4 Dsu949 FREE T4 1.07 ng/dL 10/27/2018 Comp Metabolic Tzr802 NA 138 mEq/L 10/26/2018 Comp Metabolic Gcj335 K 4.3 mEq/L 10/26/2018 Comp Metabolic Srw124 CL 102 mEq/L 10/26/2018 Comp Metabolic Bpw787 CO2 26.0 mEq/L 10/26/2018 Comp Metabolic Jlr219 ANION GAP 14 10/26/2018 Comp Metabolic Hnp468 GLUCOSE 88 mg/dL 10/26/2018 Comp Metabolic Vkn154 Creat 0.9 mg/dL 10/26/2018 Comp Metabolic Fzo214 eGFR 63 ml/min/1.73m2 10/26/2018 Comp Metabolic Pxx155 BUN 25 mg/dL 10/26/2018 Comp Metabolic Xvk322 B/C Ratio 26.6 Ratio 10/26/2018 Comp Metabolic Jgn819 CALCIUM 10.1 mg/dL 10/26/2018 Comp Metabolic Slk498 ALK PHOS 77 U/L 10/26/2018 Comp Metabolic Wkk147 AST(SGOT) 16 U/L 10/26/2018 Comp Metabolic Rmi678 ALT(SGPT) 16 U/L 10/26/2018 Comp Metabolic Ghn476 BILI T 0.5 mg/dL 10/26/2018 Comp Metabolic Eqz921 ALBUMIN 4.3 g/dL 10/26/2018 Comp Metabolic Knu696 TPRO 6.8 g/dL 10/26/2018 Comp Metabolic Grz851 GLOB 2.5 g/dL 10/26/2018 Comp Metabolic Kdn791 A/G Ratio 1.7 Ratio 10/26/2018 Comp Metabolic Ppd367 Osmo 279 mOsmo 10/26/2018 %Hba1C Jab785 % HbA1c 27245- 6 5.2 % 10/26/2018 %Hba1C Jwn122 Gluc Ave 103 mg/dL 10/26/2018 Cbc With [...] 29.1 pg 10/26/2018 Cbc With Differential Ord2 [place]% 9.6 % 10/26/2018 Cbc With Differential Ord2 [...] 1.94 K/ul 10/26/2018 Cbc With Differential Ord2 [place] ABS# 0.6 K/ul 10/26/2018 Cbc With Differential Ord2 Eos ABS# 0.1 K/ul 10/26/2018 Cbc With Differential Ord2 Baso ABS# 0.0 K/ul 10/26/2018 Lipid Ord30 CHOL 238 mg/dL 10/26/2018 Lipid Ord30 HDL 42.0 mg/dl 10/26/2018 Lipid Ord30 TRIG 270 mg/dL 10/26/2018 Lipid Ord30 LDL 142 mg/dL 10/26/2018 Lipid Ord30 C/HDL 5.7 Ratio 10/26/2018 %Hba1C Ahw430 % HbA1c 44528- 6 5.3 % 07/20/2018 %Hba1C Ncn346 Gluc Ave 105 mg/dL 07/20/2018 Comp Metabolic Njt324 NA 139 mEq/L 07/20/2018 Comp Metabolic Cvk211 K 5.1 mEq/L 07/20/2018 Comp Metabolic Lkb393 CL 106 mEq/L 07/20/2018 Comp Metabolic Byf449 CO2 19.0 mEq/L 07/20/2018 Comp Metabolic Sxa720 ANION GAP 19 07/20/2018 Comp Metabolic Aqq004 GLUCOSE 88 mg/dL 07/20/2018 Comp Metabolic Kaz945 Creat 0.8 mg/dL 07/20/2018 Comp Metabolic Hnd324 eGFR 77 ml/min/1.73m2 07/20/2018 Comp Metabolic Itl254 BUN 25 mg/dL 07/20/2018 Comp Metabolic Xrk915 B/C Ratio 31.6 Ratio 07/20/2018 Comp Metabolic Pkd056 CALCIUM 10.0 mg/dL 07/20/2018 Comp Metabolic Alb580 ALK PHOS 81 U/L 07/20/2018 Comp Metabolic Sui440 AST(SGOT) 26 U/L 07/20/2018 Comp Metabolic Cub583 ALT(SGPT) 16 U/L 07/20/2018 Comp Metabolic Nsz417 BILI T 0.5 mg/dL 07/20/2018 Comp Metabolic Fnl186 ALBUMIN 4.5 g/dL 07/20/2018 Comp Metabolic Rle794 TPRO 7.2 g/dL 07/20/2018 Comp Metabolic Tax982 GLOB 2.7 g/dL 07/20/2018 Comp Metabolic Ink525 A/G Ratio 1.6 Ratio 07/20/2018 Comp Metabolic Mdr986 Osmo 281 mOsmo 07/20/2018 Free T4 Lrx739 FREE T4 1.00 ng/dL 07/20/2018 Tsh Ord6 TSH (3rd IS) 2.05 uIU/mL 07/20/2018 Vitamin D 25 Oh Tke7380 VITAMIN D, 25 HYDROXY 57.07 ng/mL 07/20/2018 Lipid Ord30 CHOL 242 mg/dL 07/20/2018 Lipid Ord30 HDL 43.0 mg/dl 07/20/2018 Lipid Ord30 TRIG 314 mg/dL 07/20/2018 Lipid Ord30 LDL 136 mg/dL 07/20/2018 Lipid Ord30 C/HDL 5.6 Ratio 07/20/2018 Free T4 Egz012 FREE T4 1.24 ng/dL 04/14/2018 Tsh Ord6 TSH (3rd IS) 0.65 uIU/mL 04/14/2018 %Hba1C Asy197 % HbA1c 59837- 6 5.1 % 01/12/2018 %Hba1C Bwu422 Gluc Ave 100 mg/dL 01/12/2018 Free T4 Xhn927 FREE T4 0.97 ng/dL 01/12/2018 Lipid Ord30 [...] 29.7 pg 01/12/2018 Cbc With Differential Ord2 [place]% 10.3 % 01/12/2018 Cbc With Differential Ord2 [...] 2.40 K/ul 01/12/2018 Cbc With Differential Ord2 [place] ABS# 0.8 K/ul 01/12/2018 Cbc With Differential Ord2 Eos ABS# 0.2 K/ul 01/12/2018 Cbc With Differential Ord2 Baso ABS# 0.0 K/ul 01/12/2018 Comp Metabolic Tnq961 NA 138 mEq/L 01/12/2018 Comp Metabolic Dsj552 K 4.1 mEq/L 01/12/2018 Comp Metabolic Gud139 CL 100 mEq/L 01/12/2018 Comp Metabolic Snd784 CO2 28.0 mEq/L 01/12/2018 Comp Metabolic Ejo741 ANION GAP 14 01/12/2018 Comp Metabolic Pdq457 GLUCOSE 84 mg/dL 01/12/2018 Comp Metabolic Fcy391 Creat 0.8 mg/dL 01/12/2018 Comp Metabolic Pon933 eGFR 78 ml/min/1.73m2 01/12/2018 Comp Metabolic Toq469 BUN 20 mg/dL 01/12/2018 Comp Metabolic Fqn424 B/C Ratio 25.6 Ratio 01/12/2018 Comp Metabolic Fup098 CALCIUM 9.6 mg/dL 01/12/2018 Comp Metabolic Cnc779 ALK PHOS 76 U/L 01/12/2018 Comp Metabolic Csh861 AST(SGOT) 16 U/L 01/12/2018 Comp Metabolic Ynx747 ALT(SGPT) 16 U/L 01/12/2018 Comp Metabolic Wfg057 BILI T 0.4 mg/dL 01/12/2018 Comp Metabolic Ksf266 ALBUMIN 4.1 g/dL 01/12/2018 Comp Metabolic Fjk319 TPRO 6.7 g/dL 01/12/2018 Comp Metabolic Dwa549 GLOB 2.6 g/dL 01/12/2018 Comp Metabolic Ixj566 A/G Ratio 1.6 Ratio 01/12/2018 Comp Metabolic Hgn468 Osmo 277 mOsmo 01/12/2018 Free T4 Yqe873 FREE T4 1.40 ng/dL 08/05/2017 %Hba1C Wur200 % HbA1c 24033- 6 5.0 % 08/05/2017 %Hba1C Gal318 Gluc Ave 97 mg/dL 08/05/2017 Cbc With [...] 29.5 pg 08/03/2017 Cbc With Differential Ord2 [place]% 9.3 % 08/03/2017 Cbc With Differential Ord2 [...] 2.10 K/ul 08/03/2017 Cbc With Differential Ord2 [place] ABS# 0.7 K/ul 08/03/2017 Cbc With Differential Ord2 Eos ABS# 0.1 K/ul 08/03/2017 Cbc With Differential Ord2 Baso ABS# 0.0 K/ul 08/03/2017 Vitamin D 25 Oh Jkz2172 VITAMIN D, 25 HYDROXY 52.73 ng/mL 08/03/2017 Lipid Ord30 CHOL 215 mg/dL 08/03/2017 Lipid Ord30 HDL 43.0 mg/dl 08/03/2017 Lipid Ord30 TRIG 278 mg/dL 08/03/2017 Lipid Ord30 LDL 116 mg/dL 08/03/2017 Lipid Ord30 C/HDL 5.0 Ratio 08/03/2017 Tsh Ord6 hTSH II 0.09 uIU/mL 08/03/2017 Comp Metabolic Pru643 NA 137 mEq/L 08/03/2017 Comp Metabolic Cyt462 K 4.3 mEq/L 08/03/2017 Comp Metabolic Qjm024 CL 102 mEq/L 08/03/2017 Comp Metabolic Jyv707 CO2 24.0 mEq/L 08/03/2017 Comp Metabolic Jwn476 ANION GAP 15 08/03/2017 Comp Metabolic Mzg851 GLUCOSE 80 mg/dL 08/03/2017 Comp Metabolic Zgb716 Creat 0.9 mg/dL 08/03/2017 Comp Metabolic Nte491 eGFR 68 ml/min/1.73m2 08/03/2017 Comp Metabolic Zyc980 BUN 18 mg/dL 08/03/2017 Comp Metabolic Xmk739 B/C Ratio 20.5 Ratio 08/03/2017 Comp Metabolic Yic065 CALCIUM 9.7 mg/dL 08/03/2017 Comp Metabolic Qqf870 ALK PHOS 68 U/L 08/03/2017 Comp Metabolic Khn773 AST(SGOT) 14 U/L 08/03/2017 Comp Metabolic Dkm234 ALT(SGPT) 14 U/L 08/03/2017 Comp Metabolic Imi400 BILI T 0.6 mg/dL 08/03/2017 Comp Metabolic Knw022 ALBUMIN 4.0 g/dL 08/03/2017 Comp Metabolic Qvk561 TPRO 6.4 g/dL 08/03/2017 Comp Metabolic Hep082 GLOB 2.4 g/dL 08/03/2017 Comp Metabolic Euh049 A/G Ratio 1.7 Ratio 08/03/2017 Comp Metabolic Ucs527 Osmo 275 mOsmo 08/03/2017 %Hba1C Pql794 % HbA1c 10702- 6 5.1 % 01/06/2017 %Hba1C Cgf233 Gluc Ave 100 mg/dL 01/06/2017 Lipid Ord30 CHOL 223 mg/dL 01/06/2017 Lipid Ord30 HDL 44.0 mg/dl 01/06/2017 Lipid Ord30 TRIG 292 mg/dL 01/06/2017 Lipid Ord30 LDL 121 mg/dL 01/06/2017 Lipid Ord30 C/HDL 5.1 Ratio 01/06/2017 Tsh Ord6 hTSH II 0.99 uIU/mL 01/06/2017 Free T4 Vve419 FREE T4 0.96 ng/dL 01/06/2017 Cbc With [...] 29.6 pg 01/06/2017 Cbc With Differential Ord2 [place]% 9.2 % 01/06/2017 Cbc With Differential Ord2 [...] 1.85 K/ul 01/06/2017 Cbc With Differential Ord2 [place] ABS# 0.6 K/ul 01/06/2017 Cbc With Differential Ord2 Eos ABS# 0.1 K/ul 01/06/2017 Cbc With Differential Ord2 Baso ABS# 0.0 K/ul 01/06/2017 Vitamin D 25 Oh Hyn0730 VITAMIN D, 25 HYDROXY 35.10 ng/mL 01/06/2017 Comp Metabolic Yjj661 NA 140 mEq/L 01/06/2017 Comp Metabolic Odx652 K 4.3 mEq/L 01/06/2017 Comp Metabolic Lsk321 CL 103 mEq/L 01/06/2017 Comp Metabolic Uat237 CO2 29.0 mEq/L 01/06/2017 Comp Metabolic Kpb627 ANION GAP 12 01/06/2017 Comp Metabolic Ykl569 GLUCOSE 86 mg/dL 01/06/2017 Comp Metabolic Sld991 Creat 0.8 mg/dL 01/06/2017 Comp Metabolic Nwe272 eGFR 82 ml/min/1.73m2 01/06/2017 Comp Metabolic Tym365 BUN 19 mg/dL 01/06/2017 Comp Metabolic Bsa597 B/C Ratio 25.3 Ratio 01/06/2017 Comp Metabolic Yox137 CALCIUM 9.6 mg/dL 01/06/2017 Comp Metabolic Qax561 ALK PHOS 77 U/L 01/06/2017 Comp Metabolic Ebt326 AST(SGOT) 16 U/L 01/06/2017 Comp Metabolic Src876 ALT(SGPT) 18 U/L 01/06/2017 Comp Metabolic Gmx772 BILI T 0.4 mg/dL 01/06/2017 Comp Metabolic Zrs920 ALBUMIN 4.1 g/dL 01/06/2017 Comp Metabolic Kgm588 TPRO 6.7 g/dL 01/06/2017 Comp Metabolic Wju889 GLOB 2.6 g/dL 01/06/2017 Comp Metabolic Lah126 A/G Ratio 1.6 Ratio 01/06/2017 Comp Metabolic Tza144 Osmo 281 mOsmo 01/06/2017 Vitamin D 25 Oh Sfi3009 VITAMIN D, 25 HYDROXY 42.77 ng/mL 07/09/2016 Free T4 Rmb967 FREE T4 1.23 ng/dL 07/08/2016 Comp Metabolic Jmh245 NA 136 mEq/L 07/08/2016 Comp Metabolic Lag309 K 4.1 mEq/L 07/08/2016 Comp Metabolic Pha245 CL 103 mEq/L 07/08/2016 Comp Metabolic Mxh337 CO2 26.0 mEq/L 07/08/2016 Comp Metabolic Wjr378 ANION GAP 11 07/08/2016 Comp Metabolic Qlk692 GLUCOSE 83 mg/dL 07/08/2016 Comp Metabolic Lqf398 Creat 0.8 mg/dL 07/08/2016 Comp Metabolic Miw228 eGFR 80 ml/min/1.73m2 07/08/2016 Comp Metabolic Rso240 BUN 22 mg/dL 07/08/2016 Comp Metabolic Csu216 B/C Ratio 28.9 Ratio 07/08/2016 Comp Metabolic Crl425 CALCIUM 9.8 mg/dL 07/08/2016 Comp Metabolic Ygx358 ALK PHOS 75 U/L 07/08/2016 Comp Metabolic Ebf227 AST(SGOT) 14 U/L 07/08/2016 Comp Metabolic Rxg622 ALT(SGPT) 15 U/L 07/08/2016 Comp Metabolic Son112 BILI T 0.4 mg/dL 07/08/2016 Comp Metabolic Wvr463 ALBUMIN 4.1 g/dL 07/08/2016 Comp Metabolic Anh933 TPRO 6.6 g/dL 07/08/2016 Comp Metabolic Lvf244 GLOB 2.5 g/dL 07/08/2016 Comp Metabolic Wqa972 A/G Ratio 1.7 Ratio 07/08/2016 Comp Metabolic Bkn274 Osmo 274 mOsmo 07/08/2016 %Hba1C Qsj395 % HbA1c 38459- 6 5.4 % 07/08/2016 %Hba1C Pok252 Gluc Ave 108 mg/dL 07/08/2016 Cbc With [...] 29.8 pg 07/08/2016 Cbc With Differential Ord2 [place]% 10.1 % 07/08/2016 Cbc With Differential Ord2 [...] 1.89 K/ul 07/08/2016 Cbc With Differential Ord2 [place] ABS# 0.7 K/ul 07/08/2016 Cbc With Differential Ord2 Eos ABS# 0.2 K/ul 07/08/2016 Cbc With Differential Ord2 Baso ABS# 0.0 K/ul 07/08/2016 Tsh Ord6 hTSH II 0.21 uIU/mL 07/08/2016 Lipid Ord30 CHOL 210 mg/dL 07/08/2016 Lipid Ord30 HDL 41.0 mg/dl 07/08/2016 Lipid Ord30 TRIG 257 mg/dL 07/08/2016 Lipid Ord30 LDL 118 mg/dL 07/08/2016 Lipid Ord30 C/HDL 5.1 Ratio 07/08/2016 Vitamin D 25 Oh Kbj9281 VITAMIN D, 25 HYDROXY 34.38 ng/mL 03/10/2016 %Hba1C Alv386 % HbA1c 27130- 6 5.3 % 03/09/2016 %Hba1C Oee586 Gluc Ave 105 mg/dL 03/09/2016 Comp Metabolic Wbd159 NA 137 mEq/L 03/09/2016 Comp Metabolic Khc681 K 4.5 mEq/L 03/09/2016 Comp Metabolic Ick240 CL 104 mEq/L 03/09/2016 Comp Metabolic Uam461 CO2 27.0 mEq/L 03/09/2016 Comp Metabolic Xht409 ANION GAP 11 03/09/2016 Comp Metabolic Yaf022 GLUCOSE 86 mg/dL 03/09/2016 Comp Metabolic Daq320 Creat 0.8 mg/dL 03/09/2016 Comp Metabolic Cbe977 eGFR 81 ml/min/1.73m2 03/09/2016 Comp Metabolic Bny325 BUN 23 mg/dL 03/09/2016 Comp Metabolic Lnk256 B/C Ratio 30.3 Ratio 03/09/2016 Comp Metabolic Mlx734 CALCIUM 9.4 mg/dL 03/09/2016 Comp Metabolic Hcd004 ALK PHOS 69 U/L 03/09/2016 Comp Metabolic Cmv515 AST(SGOT) 14 U/L 03/09/2016 Comp Metabolic Cbm443 ALT(SGPT) 14 U/L 03/09/2016 Comp Metabolic Raw981 BILI T 0.4 mg/dL 03/09/2016 Comp Metabolic Kmy163 ALBUMIN 4.1 g/dL 03/09/2016 Comp Metabolic Szv819 TPRO 6.6 g/dL 03/09/2016 Comp Metabolic Eti279 GLOB 2.5 g/dL 03/09/2016 Comp Metabolic Dne499 A/G Ratio 1.6 Ratio 03/09/2016 Comp Metabolic Jle151 Osmo 277 mOsmo 03/09/2016 Tsh Ord6 hTSH [...] 28.9 pg 03/09/2016 Cbc With Differential Ord2 [place]% 11.1 % 03/09/2016 Cbc With Differential Ord2 [...] 2.16 K/ul 03/09/2016 Cbc With Differential Ord2 [place] ABS# 0.9 K/ul 03/09/2016 Cbc With Differential Ord2 Eos ABS# 0.1 K/ul 03/09/2016 Cbc With Differential Ord2 Baso ABS# 0.0 K/ul 03/09/2016 Lipid Ord30 CHOL 283 mg/dL 03/09/2016 Lipid Ord30 HDL 40.0 mg/dl 03/09/2016 Lipid Ord30 TRIG 271 mg/dL 03/09/2016 Lipid Ord30 LDL 189 mg/dL 03/09/2016 Lipid Ord30 C/HDL 7.1 Ratio 03/09/2016 Comp Metabolic Kvw055 NA 137 mEq/L 09/15/2015 Comp Metabolic Iev397 K 4.4 mEq/L 09/15/2015 Comp Metabolic Tsq217 CL 101 mEq/L 09/15/2015 Comp Metabolic Wlq859 CO2 28.0 mEq/L 09/15/2015 Comp Metabolic Khj878 ANION GAP 12 09/15/2015 Comp Metabolic Qgz277 GLUCOSE 89 mg/dL 09/15/2015 Comp Metabolic Ilv941 Creat 0.8 mg/dL 09/15/2015 Comp Metabolic Tby012 eGFR 73 ml/min/1.73m2 09/15/2015 Comp Metabolic Tev821 BUN 20 mg/dL 09/15/2015 Comp Metabolic Afb580 B/C Ratio 24.1 Ratio 09/15/2015 Comp Metabolic Oyy613 CALCIUM 10.1 mg/dL 09/15/2015 Comp Metabolic Omf443 ALK PHOS 72 U/L 09/15/2015 Comp Metabolic Fgv961 AST(SGOT) 16 U/L 09/15/2015 Comp Metabolic Pzy953 ALT(SGPT) 15 U/L 09/15/2015 Comp Metabolic Uub026 BILI T 0.5 mg/dL 09/15/2015 Comp Metabolic Qfl833 ALBUMIN 4.4 g/dL 09/15/2015 Comp Metabolic Mqr095 TPRO 7.0 g/dL 09/15/2015 Comp Metabolic Kyu338 GLOB 2.6 g/dL 09/15/2015 Comp Metabolic Ycq646 A/G Ratio 1.7 Ratio 09/15/2015 Comp Metabolic Xwi392 Osmo 276 mOsmo 09/15/2015 Tsh Ord6 hTSH II 2.99 uIU/mL 09/15/2015 Vitamin D 25 Oh Nmq0572 VITAMIN D, 25 HYDROXY 30.19 ng/mL 09/15/2015 [...] Lipid Ord30 C/HDL 7.0 Ratio 09/15/2015 %Hba1C Pwb429 % HbA1c 11797- 6 5.2 % 09/15/2015 %Hba1C Sch613 Gluc Ave 103 mg/dL 09/15/2015 Review of [...] Formatting Model/CDA Sections, Assigned to/Margarita Brock CPT-4: 17274Qggitfn 07/27/2018 FLU VAC NO PRSV 4 SHANNON 3 YRS+ CPT-4: 62323 08/04/2017 ADMIN INFLUENZA VIRUS VAC CPT-4: G0008 08/04/2017 TRIAMCINOLONE ACET INJ NOS CPT-4: J3301 01/27/2017 THER/PROPH/DIAG INJ SC/IM CPT-4: 84552 01/27/2017 ADMIN INFLUENZA VIRUS VAC CPT-4: G0008 07/15/2016 FLU VACC 4 SHANNON 3 YRS PLUS IM SNOMED CT: [id number] CPT-4: 27390 07/15/2016 Vital Signs Date Vital 01/23/2019 Blood [...] 1: 132/76 Code: 8480-6 BMI: 34.5 Code: 63703-8 Heart Rate 1: 55 bpm Height: 5'4" SpO2: 99% Weight: 204 lbs 07/20/2018 Blood Pressure 1: 116/74 Code: 8480-6 BMI: 34.5 Code: 63223-4 Heart Rate 1: 52 bpm Height: 5'4" SpO2: 99% Weight: 204 lbs 04/14/2018 Blood Pressure 1: 128/76 Code: 8480-6 BMI: 34.5 Code: 51854-5 Heart Rate 1: 67 bpm Height: 5'4" SpO2: 95% Weight: 204 lbs 02/06/2018 Blood Pressure 1: 142/78 Code: 8480-6 BMI: 35.2 Code: 93388-1 Heart Rate 1: 58 bpm Height: 5'4" SpO2: 98% Weight: 208 lbs 01/12/2018 Blood Pressure 1: 132/82 Code: 8480-6 BMI: 34.8 Code: 31479-3 Height: 5'4" Weight: 206 lbs 08/04/2017 Blood Pressure 1: 140/82 Code: 8480-6 BMI: 31.9 Code: 67472-6 Heart Rate 1: 58 bpm Height: 5'4" SpO2: 99% Weight: 188 lbs 8 oz 07/19/2017 Blood Pressure 1: 136/76 Code: 8480-6 BMI: 32.0 Code: 27071-1 Heart Rate 1: 67 bpm Height: 5'4" SpO2: 97% Weight: 189 lbs 8 oz 05/05/2017 Blood Pressure 1: 142/80 Code: 8480-6 BMI: 32.4 Code: 19286-2 Heart Rate 1: 54 bpm Height: 5'4" SpO2: 98% Weight: 191 lbs 8 oz 01/27/2017 Blood Pressure 1: 132/82 Code: 8480-6 BMI: 34.1 Code: 08891-9 Heart Rate 1: 55 bpm Height: 5'4" SpO2: 99% Weight: 202 lbs 07/15/2016 Blood Pressure 1: 128/72 Code: 8480-6 BMI: 34.4 Code: 52359-7 Heart Rate 1: 50 bpm Height: 5'4" SpO2: 98% Weight: 203 lbs 8 oz 03/16/2016 Blood Pressure 1: 118/78 Code: 8480-6 BMI: 34.5 Code: 23177-1 Heart Rate 1: 55 bpm Height: 5'4" SpO2: 98% Weight: 204 lbs 09/15/2015 Blood Pressure 1: 134/72 Code: 8480-6 BMI: 34.6 Code: 23683-1 Heart Rate 1: 52 bpm Height: 5'4" SpO2: 99% Weight: 205 lbs 03/17/2015 Blood Pressure 1: 128/74 Code: 8480-6 BMI: 35.8 Code: 52899-2 Heart Rate 1: 59 bpm Height: 5'4" [...] data Encounters Encounter Performer Location Codes Date ([id number]) [id number] EST. PATIENT, LEVEL IV Diagnosis: Essential (primary) hypertension[ICD10: I10] Diagnosis: Type 2 diabetes mellitus without complications[ICD10: E11.9] Diagnosis: Paroxysmal atrial fibrillation[ICD10: I48.0] [facility] CPT-4: 22806 01/23/2019 ([id number]) Miscellaneous no charge Diagnosis: Paroxysmal atrial fibrillation[ICD10: I48.0] [facility] CPT-4: 43154 12/22/2018 ([id number]) [id number] EST. PATIENT, LEVEL IV Diagnosis: Paroxysmal atrial fibrillation[ICD10: I48.0] Diagnosis: Hypothyroidism, unspecified[ICD10: E03.9] Diagnosis: Essential (primary) hypertension[ICD10: I10] Ria Bermudez MD, [facility] CPT-4: 17343 12/19/2018 ([id number]) [id number] EST. PATIENT, LEVEL IV Diagnosis: Essential (primary) hypertension[ICD10: I10] Diagnosis: Type 2 diabetes mellitus with diabetic polyneuropathy[ICD10: E11.42] Diagnosis: Hypothyroidism, unspecified[ICD10: E03.9] Diagnosis: Mixed hyperlipidemia[ICD10: E78.2] Diagnosis: Lumbago with sciatica, right side[ICD10: M54.41] Delmis Bermudez MD, [facility] CPT-4: 26308 10/26/2018 ([id number]) [id number] EST. PATIENT, LEVEL IV Diagnosis: Type 2 diabetes mellitus with diabetic polyneuropathy[ICD10: E11.42] Diagnosis: Mixed hyperlipidemia[ICD10: E78.2] Diagnosis: Essential (primary) hypertension[ICD10: I10] Diagnosis: Vitamin D deficiency, unspecified[ICD10: E55.9] Diagnosis: Hypothyroidism, unspecified[ICD10: E03.9] Delmis Bermudez MD, [facility] CPT-4: 19509 07/20/2018 [id number]) [id number] EST. PATIENT, LEVEL IV Diagnosis: Essential (primary) hypertension[ICD10: I10] Diagnosis: Hypothyroidism, unspecified[ICD10: E03.9] Diagnosis: Mixed hyperlipidemia[ICD10: E78.2] Delmis Bermudez MD, [facility] CPT- 4: 74052 04/14/2018 [id number]) 16381 EST. PATIENT, LEVEL III Diagnosis: Type 2 diabetes mellitus with diabetic polyneuropathy[ICD10: E11.42] Delmis Bermudez MD, [facility] CPT-4: 64920 02/06/2018 [id number]) 18844 EST. PATIENT, LEVEL IV Diagnosis: Mixed hyperlipidemia[ICD10: E78.2] Diagnosis: Hypothyroidism, unspecified[ICD10: E03.9] Diagnosis: Type 2 diabetes mellitus without complications[ICD10: E11.9] Delmis Bermudez MD, [facility] CPT-4: 80092 01/12/2018 ([id number]) 12966 EST. PATIENT, LEVEL IV Diagnosis: Essential (primary) hypertension[ICD10: I10] Diagnosis: Mixed hyperlipidemia[ICD10: E78.2] Diagnosis: Hypothyroidism, unspecified[ICD10: E03.9] Diagnosis: Type 2 diabetes mellitus without complications[ICD10: E11.9] Diagnosis: Encounter for immunization[ICD10: Z23] Delmis Bermudez MD, [facility] CPT-4: 50458 08/04/2017 [id number]) 89019 EST. PATIENT, LEVEL III Diagnosis: Diverticulitis of large intestine without perforation or abscess without bleeding[ICD10: K57.32] Delmis Bermudez MD, [facility] CPT-4: 14652 07/19/2017 ([id number]) 90373 EST. PATIENT, LEVEL III Diagnosis: Type 2 diabetes mellitus with diabetic polyneuropathy[ICD10: E11.42] Delmis Bermudez MD, [facility] CPT-4: 22713 05/05/2017 ([id number]) 73788 EST. PATIENT, LEVEL IV Diagnosis: Essential (primary) hypertension[ICD10: I10] Diagnosis: Type 2 diabetes mellitus without complications[ICD10: E11.9] Diagnosis: Mixed hyperlipidemia[ICD10: E78.2] Diagnosis: Allergic rhinitis due to pollen[ICD10: J30.1] Ria Bermudez MD, [facility] CPT-4: 30075 01/27/2017 ([id number]) 10689 EST. PATIENT, LEVEL IV Diagnosis: Type 2 diabetes mellitus without complications[ICD10: E11.9] Diagnosis: Essential (primary) hypertension[ICD10: I10] Diagnosis: Mixed hyperlipidemia[ICD10: E78.2] Ria Bermudez MD, [facility] CPT- 4: 75238 07/15/2016 ([id number]) 32308 EST. PATIENT, LEVEL IV Diagnosis: Type 2 diabetes mellitus without complications[ICD10: E11.9] Diagnosis: Polyneuropathy, unspecified[ICD10: G62.9] Diagnosis: Mixed hyperlipidemia[ICD10: E78.2] Ria Bermudez MD, [facility] CPT- 4: 29069 03/16/2016 ([id number]) 92185 EST. PATIENT, LEVEL IV Diagnosis: Type 2 diabetes mellitus without complications[ICD10: E11.9] Diagnosis: Essential (primary) hypertension[ICD10: I10] Diagnosis: Vitamin D deficiency, unspecified[ICD10: E55.9] Diagnosis: Mixed hyperlipidemia[ICD10: E78.2] Ria Bermudez MD, [facility] CPT- 4: 48353 09/15/2015 ([id number]) OFFICE VISIT, NEW - LEVEL 4 Diagnosis: ESSENTIAL HYPERTENSION[ICD9: 401.9] Diagnosis: Diabetes mellitus type 2, controlled[ICD9: 250.00] Diagnosis: Peripheral neuropathy[ICD9: 356.9] Delmis Bermudez MD, [facility] CPT- 4: 49232 03/17/2015 Plan of Care Planned Activity Notes [...] less controlled. 01/23/2019 Appointment: Delmis Her WPtel: [address] [place], [place] [phone] (15 min) Moderate 01/23/2019 Patient Education: Patient Medication Summary Completed 01/23/2019 Patient Education: Diabetes Completed 01/23/2019 Appointment: Delmis Her WPtel: [address] [place], [place] [phone] (30 min) Complex 01/22/2019 Referral: Lindsey Poole She needs to arrive 15 minutes early. Patient informed. Completed 01/04/2019 Visit Plan: Afib -patient is doing MUCH better -heart sounds regular today -shortness of breath, dizziness and nausea have resolved - continue same meds and follow up with pearl glue drier as scheduled. Patient irineo lized understanding of plan. 12/22/2018 Appointment: Delmis Her WPtel: [address] [place], [place] [phone] (30 min) Complex 12/22/2018 Patient Education: Patient [...] verbalized understanding of plan. Hypothyroidism-check labs today CVS-vvpypsrenw-ipddmfll to monitor 12/19/2018 Visit Plan: Atrial Fibrillation -new onset-Dr Bermudez in to evaluate patient- will start patient on cardizem cd and eliquis -get EKG and labs today- schedule echo and refer to cardiology-instructed patient and her to go to ER if symptoms worsen or do not improve -patient and verbalized understanding of plan. Hypothyroidism-check labs today IKG-jfgtqteswe-skbonxqi to monitor 12/19/2018 Visit Plan: Atrial Fibrillation -new onset-Dr Bermudez in to evaluate patient- will start patient on cardizem cd and eliquis -get EKG and labs today- schedule echo and refer to cardiology-instructed patient and her to go to ER if symptoms worsen or do not improve -patient and verbalized understanding of plan. Hypothyroidism-check labs today XHT-tzxmmpxljb-cuqqxgxm to monitor 12/19/2018 Appointment: Delmis Her WPtel: [phone] (30 min) Complex 12/19/2018 Patient Education: Patient Medication Summary Completed 12/19/2018 Patient Education: Eliquis - 18+ - No MARIBELL INIGUEZ NE Completed 12/19/2018 Care Plan: Cbc With Differential Pending 12/19/2018 Care Plan: Comp Metabolic Pending 12/19/2018 Care Plan: Tsh Pending 12/19/2018 Care Plan: Free T4 Pending 12/19/2018 Care Plan: Referral Order SNOMED-CT : [id number] Pending 12/19/2018 Visit Plan: Hypertension - well [...] they worsen. 10/26/2018 Appointment: Delmis Her WPtel: [address] [place], [place] [phone] (15 min) Moderate 10/26/2018 Patient Education: Patient [...] control. 07/20/2018 Appointment: Delmis Her WPtel: [phone] (15 min) Moderate 07/20/2018 Patient Education: Patient [...] it 04/14/2018 Appointment: Delmis Her WPtel: [phone] [phone] (15 min) Moderate 04/14/2018 Patient Education: Patient Medication Summary Completed 04/14/2018 Visit Plan: Diabetic peripheral neuropathy -paperwork for diabetic shoes completed today in the office and will fax to Dr Briscoe's office- Patient verbalized understanding of plan. 02/06/2018 Appointment: [phone] (15 min) Moderate 02/06/2018 Patient Education: [...] control. 01/12/2018 Appointment: Del[facility] Her [facility]Ptel[phone] (30 min) Complex 01/12/2018 Patient Education: [...] to medications. 08/04/2017 Appointment: Delmis Her WPtel: [phone] (30 min) Complex 08/04/2017 Patient Education: Patient Medication Summary Completed 08/04/2017 Patient Education: Obesity Completed 08/04/2017 Care Plan: [facility] Pending 08/04/2017 Visit Plan: Diverticulitis - rx for antibiotic sent to pt's pharmacy - pt advised to avoid seeds, nuts, popcorn, or any other food which has been proven to upset the pt's stomach. Call if symptoms do not improve or if any worse and we will check labs and CT scan. Patient verbalized understanding of plan. 07/19/2017 Appointment: Delmis Her WPtel: [facility] [place] [address] (30 min) Complex 07/19/2017 Patient Education: Patient Medication Summary Completed 07/19/2017 Patient Education: Obesity Completed 07/19/2017 Visit Plan: Diabetic peripheral neuropathy - diabetes paperwork completed today in the office-patient does want to start medication-RX for gabapentin sent electronically and provided and instructed on use. Patient verbalized understanding of plan. 05/05/2017 Appointment: Delmis Her WPtel: [phone] (30 min) Complex 05/05/2017 Patient Education: Patient Medication Summary Completed 05/05/2017 Patient Education: Obesity Completed 05/05/2017 Appointment: Delmis Her WPtel: [phone] [facility] - Annual Wellness Visit 01/28/2017 Visit [...] kenalog 01/27/2017 Appointment: [facility]el[phone] [facility] (15 min) Moderate 01/27/2017 Patient Education: Patient Medication Summary Completed 01/27/2017 Patient Education: Obesity Completed 01/27/2017 Appointment: [facility]udez [facility]Ptel[phone] [facility] [place] (15 min) Moderate 01/11/2017 Visit Plan: Hypertension [...] dications. 07/15/2016 Appointment: Ria Bermudez WPtel: [phone] [facility] (15 min) Moderate 07/15/2016 Patient Education: Patient [...] time. 03/16/2016 Appointment: [facility]ude[facility]Ptel[phone] [facility] (15 min) Moderate 03/16/2016 Patient Education: Patient [...] are starting to become less controlled. Peripheral wiorqtyedp-XN-vfbctsjv foot exam today in the office and [...] are starting to become less controlled. Peripheral fjbasxjckk-VO-lhxinnks foot exam today in the office and [...] are starting to become less controlled. Peripheral rsniynclvh-IM-ncwqbemr foot exam today in the office and paperwork completed for diabetic shoes-see scanned document 03/17/2015 Appointment: R[facility]ermudez [facility]Ptel[facility] [phone] [facility] [place] ([place] New Patient 03/17/2015 Patient Education: Patient Medication Summary Completed 03/17/2015 Patient Education: Hypertension Completed 03/17/2015 Referral: Lindsey Poole Referral Appointment Requested Instructions Comment . Afib -patient is doing MUCH better -heart sounds regular today -shortness of breath, dizziness and nausea have resolved -continue same meds and follow up with pearl glue drier as scheduled. Patient verbalized understanding of plan. [...] are starting to become less controlled. Peripheral pravzvmepr-ID-ztsimixm foot exam today in the office and [...] are starting to become less controlled. Peripheral ndzpekhrta-IZ-maowudsa foot exam today in the office and [...] are starting to become less controlled. Peripheral jrwflzjyxo-NC-iizybqbj foot exam today in the office and [...] HOSPITAL ECHO -WE WILL SCHEDULE REFER TO SPIRITUAL COUNSELOR -DR POOLE . Atrial Fibrillation -new onset-Dr Bermudez in to evaluate patient- will start patient on cardizem cd and eliquis -get EKG and labs today- schedule echo and refer to cardiology-instructed patient and her to go to ER if symptoms worsen or do not improve -patient and verbalized understanding of plan. Hypothyroidism-check labs today IVT-mzbitviznr-eepgnyka to monitor CARDIZEM CD 120MG DAILY ELIQUIS 5MG TWICE DAILY -SAMPLES PROVIDED EKG AND LABS TODAY AT THE HOSPITAL ECHO -WE WILL SCHEDULE REFER TO SPIRITUAL COUNSELOR -DR POOLE . Atrial Fibrillation -new onset-Dr Bermudez in to evaluate patient- will start patient on cardizem cd and eliquis -get EKG and labs today- schedule echo and refer to cardiology-instructed patient and her to go to ER if symptoms worsen or do not improve -patient and verbalized understanding of plan. Hypothyroidism-check labs today ZIE-zwpxapuwnn-ezigdtnk to monitor CARDIZEM CD 120MG DAILY ELIQUIS 5MG TWICE DAILY -SAMPLES PROVIDED EKG AND LABS TODAY AT THE HOSPITAL ECHO -WE WILL SCHEDULE REFER TO SPIRITUAL COUNSELOR -DR POOLE . Atrial Fibrillation -new onset-Dr Bermudez in to evaluate patient- will start patient on cardizem cd and eliquis -get EKG and labs today- schedule echo and refer to cardiology-instructed patient and her to go to ER if symptoms worsen or do not improve -patient and verbalized understanding of plan. Hypothyroidism-check labs today RBJ-iyfkbdwurf-druikqpn to monitor check labs today . Hypertension [...]
--- OUTSIDE RECORDS SUMMARY | 2019-04-04 06:58 | XMS REPORT | CCD ---
Author Author Delmis Her Organization Ria Bermudez MD, [facility] Address [address] [place] [address] Phone Care Team Providers Care Mill Washer Name Role Phone PP Unavailable CCM Unavailable Summary Purpose Interface Exchange Insurance Providers Payer name Policy type / Coverage type Covered libertarian ID Effective Begin Date Effective End Date WPS Medicare Part B Medicare Part B [id number] Unknown [facility] Medicare Part B [id number] Unknown Family history Son Diagnosis Age At [...] Unknown Retired 03/17/[address]: 895136950 Never smoker 03/17/[address]: 801065635 Never smoker 03/17/2015 Allergies, Adverse Reactions, Alerts Substance Reaction Codes Entered Date Inactivated Date Status * NO KNOWN FOOD ALLERGIES Unknown 03/17/2015 No Inactive Date Active ciprofloxacin RxNorm: 50221 03/17/2015 No Inactive Date Active Erythromycin RxNorm: 4053 03/17/2015 No Inactive Date Active Penicillin Unknown 03/17/2015 No Inactive Date Active [id number]-EOX REDUCTASE INHIBITORS myalgias, Unknown 03/16/2016 No Inactive [...] Fill Instructions levothyroxine 100 mcg tablet RxNorm: 487662 TAKE ONE TABLET BY MOUTH EVERY OTHER DAY ALTERNATE WITH 112 MCG TABLET 01/16/2019 06/14/2019 Active Zetia 10 mg tablet RxNorm: 057226 1/2 Tablet(s) PO daily 12/19/2018 No Stop Date Active Cardizem CD 120 mg capsule,extended release RxNorm: 756131 1 Capsule(s) PO daily 12/19/2018 06/16/2019 Active Eliquis 5 mg tablet RxNorm: 7647642 1 Tablet(s) PO BID 12/19/2018 No Stop Date Active gabapentin 100 mg capsule RxNorm: 424673 TAKE ONE CAPSULE BY MOUTH EVERY NIGHT AT BEDTIME 12/11/2018 02/08/2019 Active levothyroxine 112 mcg tablet RxNorm: 356875 TAKE ONE TABLET BY MOUTH EVERY OTHER DAY ALTERNATE WITH 100MCG TABLET 12/07/2018 03/06/2019 Active Zetia 10 mg tablet RxNorm: 492173 1 Tablet(s) PO daily 10/26/2018 12/18/2018 Inactive Zetia 10 mg tablet RxNorm: 295911 1/2 Tablet(s) PO daily 07/20/2018 10/25/2018 Inactive indapamide 1.25 mg tablet RxNorm: 746767 Tablet(s) TAKE ONE TABLET BY MOUTH DAILY 07/19/2018 07/13/2019 Active levothyroxine 112 mcg tablet RxNorm: 860061 TAKE ONE TABLET BY MOUTH EVERY OTHER DAY ALTERNATE WITH 100MCG TABLET 07/19/2018 11/15/2018 Inactive gabapentin 100 mg capsule RxNorm: 027890 TAKE ONE CAPSULE BY MOUTH EVERY NIGHT AT BEDTIME 06/05/2018 09/02/2018 Inactive Zetia 10 mg tablet RxNorm: 741414 1 Tablet(s) PO daily 05/11/2018 07/19/2018 Inactive Zetia 10 mg tablet RxNorm: 560640 1 Tablet(s) PO daily 05/11/2018 05/10/2018 Inactive indapamide 1.25 mg tablet RxNorm: 921934 TAKE ONE TABLET BY MOUTH DAILY 04/05/2018 07/18/2018 Inactive enalapril maleate 5 mg tablet RxNorm: 869029 TAKE ONE TABLET BY MOUTH DAILY 04/05/2018 12/30/2018 Inactive levothyroxine 112 mcg tablet RxNorm: 397173 1 Tablet(s) PO every other day . ALTERNATE WITH 100 MCG TABLET. 01/24/2018 05/23/2018 Inactive Crestor 10 mg tablet RxNorm: 336329 1 Tablet(s) PO QHS 01/24/2018 04/13/2018 Inactive levothyroxine 100 mcg tablet RxNorm: 101178 Tablet(s) TAKE ONE TABLET BY MOUTH EVERY OTHER DAY. ALTERNATE WITH 112 MCG TABLET. 01/24/2018 05/23/2018 Inactive Crestor 10 mg tablet RxNorm: 543385 1 Tablet(s) PO QHS 01/24/2018 01/23/2018 Inactive gabapentin 100 mg capsule RxNorm: 101866 TAKE ONE CAPSULE BY MOUTH EVERY NIGHT AT BEDTIME 01/05/2018 06/04/2018 Inactive indapamide 1.25 mg tablet RxNorm: 932867 TAKE ONE TABLET BY MOUTH DAILY 01/05/2018 04/04/2018 Inactive Zocor 20 mg tablet RxNorm: 381238 TAKE ONE TABLET BY MOUTH DAILY 12/02/2017 01/11/2018 Inactive Phenergan-Codeine 6.25 mg-10 mg/5 mL syrup RxNorm: 531496 5-10 Milliliter(s) PO Q6 as needed cough 11/09/2017 No Stop Date Active Tamiflu 75 mg capsule RxNorm: 362429 1 Capsule(s) PO BID 11/09/2017 11/13/2017 Inactive Tamiflu 75 mg capsule RxNorm: 329368 1 Capsule(s) PO BID 11/09/2017 11/08/2017 Inactive levothyroxine 100 mcg tablet RxNorm: 236006 TAKE ONE TABLET BY MOUTH DAILY 10/28/2017 01/23/2018 Inactive indapamide 1.25 mg tablet RxNorm: 705997 TAKE ONE TABLET BY MOUTH DAILY 09/09/2017 01/04/2018 Inactive levothyroxine 100 mcg tablet RxNorm: 567743 1 Tablet(s) PO daily TAKE ONE TABLET BY MOUTH DAILY 08/04/2017 10/27/2017 Inactive Flagyl 500 mg tablet RxNorm: 679321 1 Tablet(s) PO TID 07/19/2017 07/28/2017 Inactive enalapril maleate 5 mg tablet RxNorm: 246441 TAKE ONE TABLET BY MOUTH DAILY 06/30/2017 12/26/2017 Inactive indapamide 1.25 mg tablet RxNorm: 367390 TAKE ONE TABLET BY MOUTH DAILY 05/26/2017 09/08/2017 Inactive Zocor 20 mg tablet RxNorm: 786030 TAKE ONE TABLET BY MOUTH DAILY 05/26/2017 10/22/2017 Inactive gabapentin 100 mg capsule RxNorm: 534939 1 Capsule(s) PO QHS 05/05/2017 09/01/2017 Inactive Kenalog 40 mg/mL suspension for injection RxNorm: 0091959 1 Milliliter(s) Inj 01/27/2017 01/27/2017 Inactive levothyroxine 112 mcg tablet RxNorm: 260366 TAKE ONE TABLET BY MOUTH DAILY 01/17/2017 08/03/2017 Inactive Zocor 20 mg tablet RxNorm: 367048 TAKE ONE TABLET BY MOUTH DAILY 11/08/2016 05/06/2017 Inactive indapamide 1.25 mg tablet RxNorm: 272582 TAKE ONE TABLET BY MOUTH DAILY 11/08/2016 05/06/2017 Inactive enalapril maleate 5 mg tablet RxNorm: 846659 TAKE ONE TABLET BY MOUTH DAILY 09/01/2016 05/28/2017 Inactive indapamide 1.25 mg tablet RxNorm: 217165 TAKE ONE TABLET BY MOUTH DAILY 08/02/2016 10/30/2016 Inactive Vitamin D2 50,000 unit capsule RxNorm: 091595 1 Capsule(s) PO QW 07/15/2016 01/17/2018 Inactive indapamide 1.25 mg tablet RxNorm: 473685 TAKE ONE TABLET BY MOUTH DAILY 04/29/2016 07/27/2016 Inactive Vitamin D2 50,000 unit capsule RxNorm: 815876 1 Capsule(s) PO QW 03/16/2016 07/14/2016 Inactive Zocor 20 mg tablet RxNorm: 794565 1 Tablet(s) PO daily 03/16/2016 10/11/2016 Inactive levothyroxine 112 mcg tablet RxNorm: 738391 TAKE ONE TABLET BY MOUTH DAILY 01/07/2016 12/31/2016 Inactive indapamide 1.25 mg tablet RxNorm: 314179 1 Tablet(s) PO daily 12/03/2015 03/31/2016 Inactive Vitamin D2 50,000 unit capsule RxNorm: 867262 1 Capsule(s) PO QW 09/26/2015 09/25/2015 Inactive Lipitor 10 mg tablet RxNorm: 251890 1 Tablet(s) PO daily 09/26/2015 03/15/2016 Inactive Vitamin D2 50,000 unit capsule RxNorm: 513768 1 Capsule(s) PO QW 09/26/2015 03/15/2016 Inactive enalapril maleate 5 mg tablet RxNorm: 740010 1 Tablet(s) PO daily 08/06/2015 07/30/2016 Inactive levothyroxine 112 mcg tablet RxNorm: 320616 1 Tablet(s) PO daily 04/04/2015 10/30/2015 Inactive Vitamin D3 2,000 unit capsule RxNorm: 689891 1 Capsule(s) PO daily No Start Date Active aspirin 500 mg tablet RxNorm: 922159 1 Tablet(s) PO daily No Start Date Active Co Q-10 oral RxNorm: 78641 oral No Start Date Active Phenergan-Codeine 6.25 mg-10 mg/5 mL syrup RxNorm: 356270 5-10 Milliliter(s) PO Q6 as needed cough No Start Date 11/08/2017 Inactive Lipitor 20 mg tablet RxNorm: 098559 1 Tablet(s) PO daily No Start Date 09/14/2015 Inactive indapamide 1.25 mg tablet RxNorm: 172177 1 Tablet(s) PO daily No Start Date 12/02/2015 Inactive enalapril maleate 5 mg tablet RxNorm: 654683 1 Tablet(s) PO daily No Start Date 08/05/2015 Inactive levothyroxine 112 mcg tablet RxNorm: 030512 1 Tablet(s) PO daily No Start Date 04/03/2015 Inactive Medication Administered Medication Codes Instructions Start Date Status Kenalog 40 mg/mL suspension for injection RxNorm: 4894432 1Milliliter 01/27/2017 No longer Active Immunizations Vaccine [...] (3rd IS) 2.55 uIU/mL 10/27/2018 Free T4 Uqq478 FREE T4 1.07 ng/dL 10/27/2018 Comp Metabolic Noe452 NA 138 mEq/L 10/26/2018 Comp Metabolic Ims908 K 4.3 mEq/L 10/26/2018 Comp Metabolic Ind162 CL 102 mEq/L 10/26/2018 Comp Metabolic Msa064 CO2 26.0 mEq/L 10/26/2018 Comp Metabolic Jok369 ANION GAP 14 10/26/2018 Comp Metabolic Gjg946 GLUCOSE 88 mg/dL 10/26/2018 Comp Metabolic Obz733 Creat 0.9 mg/dL 10/26/2018 Comp Metabolic Juk754 eGFR 63 ml/min/1.73m2 10/26/2018 Comp Metabolic Amp181 BUN 25 mg/dL 10/26/2018 Comp Metabolic Xfw985 B/C Ratio 26.6 Ratio 10/26/2018 Comp Metabolic Cmr934 CALCIUM 10.1 mg/dL 10/26/2018 Comp Metabolic Ius962 ALK PHOS 77 U/L 10/26/2018 Comp Metabolic Jwc711 AST(SGOT) 16 U/L 10/26/2018 Comp Metabolic Mlx652 ALT(SGPT) 16 U/L 10/26/2018 Comp Metabolic Mwd193 BILI T 0.5 mg/dL 10/26/2018 Comp Metabolic Wlp742 ALBUMIN 4.3 g/dL 10/26/2018 Comp Metabolic Kga713 TPRO 6.8 g/dL 10/26/2018 Comp Metabolic Zcg402 GLOB 2.5 g/dL 10/26/2018 Comp Metabolic Yjt281 A/G Ratio 1.7 Ratio 10/26/2018 Comp Metabolic Bwm599 Osmo 279 mOsmo 10/26/2018 %Hba1C Pfo251 % HbA1c 53444- 6 5.2 % 10/26/2018 %Hba1C Btz893 Gluc Ave 103 mg/dL 10/26/2018 Cbc With [...] 29.1 pg 10/26/2018 Cbc With Differential Ord2 [place]% 9.6 % 10/26/2018 Cbc With Differential Ord2 [...] 1.94 K/ul 10/26/2018 Cbc With Differential Ord2 [place] ABS# 0.6 K/ul 10/26/2018 Cbc With Differential Ord2 Eos ABS# 0.1 K/ul 10/26/2018 Cbc With Differential Ord2 Baso ABS# 0.0 K/ul 10/26/2018 Lipid Ord30 CHOL 238 mg/dL 10/26/2018 Lipid Ord30 HDL 42.0 mg/dl 10/26/2018 Lipid Ord30 TRIG 270 mg/dL 10/26/2018 Lipid Ord30 LDL 142 mg/dL 10/26/2018 Lipid Ord30 C/HDL 5.7 Ratio 10/26/2018 %Hba1C Mfq699 % HbA1c 97586- 6 5.3 % 07/20/2018 %Hba1C Zaw364 Gluc Ave 105 mg/dL 07/20/2018 Comp Metabolic Cgz329 NA 139 mEq/L 07/20/2018 Comp Metabolic Rpd355 K 5.1 mEq/L 07/20/2018 Comp Metabolic Lgs807 CL 106 mEq/L 07/20/2018 Comp Metabolic Hwd717 CO2 19.0 mEq/L 07/20/2018 Comp Metabolic Gvv193 ANION GAP 19 07/20/2018 Comp Metabolic Zuu850 GLUCOSE 88 mg/dL 07/20/2018 Comp Metabolic Vya561 Creat 0.8 mg/dL 07/20/2018 Comp Metabolic Gbw015 eGFR 77 ml/min/1.73m2 07/20/2018 Comp Metabolic Asb715 BUN 25 mg/dL 07/20/2018 Comp Metabolic Afw566 B/C Ratio 31.6 Ratio 07/20/2018 Comp Metabolic Htu252 CALCIUM 10.0 mg/dL 07/20/2018 Comp Metabolic Tnz830 ALK PHOS 81 U/L 07/20/2018 Comp Metabolic Usl349 AST(SGOT) 26 U/L 07/20/2018 Comp Metabolic Bgn538 ALT(SGPT) 16 U/L 07/20/2018 Comp Metabolic Ngu917 BILI T 0.5 mg/dL 07/20/2018 Comp Metabolic Uda182 ALBUMIN 4.5 g/dL 07/20/2018 Comp Metabolic Fmh148 TPRO 7.2 g/dL 07/20/2018 Comp Metabolic Psf783 GLOB 2.7 g/dL 07/20/2018 Comp Metabolic Gah003 A/G Ratio 1.6 Ratio 07/20/2018 Comp Metabolic Ikm275 Osmo 281 mOsmo 07/20/2018 Free T4 Icg909 FREE T4 1.00 ng/dL 07/20/2018 Tsh Ord6 TSH (3rd IS) 2.05 uIU/mL 07/20/2018 Vitamin D 25 Oh Cla2747 VITAMIN D, 25 HYDROXY 57.07 ng/mL 07/20/2018 Lipid Ord30 CHOL 242 mg/dL 07/20/2018 Lipid Ord30 HDL 43.0 mg/dl 07/20/2018 Lipid Ord30 TRIG 314 mg/dL 07/20/2018 Lipid Ord30 LDL 136 mg/dL 07/20/2018 Lipid Ord30 C/HDL 5.6 Ratio 07/20/2018 Free T4 Nbc196 FREE T4 1.24 ng/dL 04/14/2018 Tsh Ord6 TSH (3rd IS) 0.65 uIU/mL 04/14/2018 %Hba1C Aqk765 % HbA1c 90817- 6 5.1 % 01/12/2018 %Hba1C Sfd155 Gluc Ave 100 mg/dL 01/12/2018 Free T4 Ypz730 FREE T4 0.97 ng/dL 01/12/2018 Lipid Ord30 [...] 29.7 pg 01/12/2018 Cbc With Differential Ord2 [place]% 10.3 % 01/12/2018 Cbc With Differential Ord2 [...] 2.40 K/ul 01/12/2018 Cbc With Differential Ord2 [place] ABS# 0.8 K/ul 01/12/2018 Cbc With Differential Ord2 Eos ABS# 0.2 K/ul 01/12/2018 Cbc With Differential Ord2 Baso ABS# 0.0 K/ul 01/12/2018 Comp Metabolic Apl804 NA 138 mEq/L 01/12/2018 Comp Metabolic Sol194 K 4.1 mEq/L 01/12/2018 Comp Metabolic Wqx325 CL 100 mEq/L 01/12/2018 Comp Metabolic Ibf361 CO2 28.0 mEq/L 01/12/2018 Comp Metabolic Jzg465 ANION GAP 14 01/12/2018 Comp Metabolic Gyu474 GLUCOSE 84 mg/dL 01/12/2018 Comp Metabolic Xca118 Creat 0.8 mg/dL 01/12/2018 Comp Metabolic Pok741 eGFR 78 ml/min/1.73m2 01/12/2018 Comp Metabolic Tke768 BUN 20 mg/dL 01/12/2018 Comp Metabolic Mzg152 B/C Ratio 25.6 Ratio 01/12/2018 Comp Metabolic Rzz287 CALCIUM 9.6 mg/dL 01/12/2018 Comp Metabolic Bfd687 ALK PHOS 76 U/L 01/12/2018 Comp Metabolic Oip494 AST(SGOT) 16 U/L 01/12/2018 Comp Metabolic Pvq099 ALT(SGPT) 16 U/L 01/12/2018 Comp Metabolic Mcc684 BILI T 0.4 mg/dL 01/12/2018 Comp Metabolic Wix031 ALBUMIN 4.1 g/dL 01/12/2018 Comp Metabolic Wpb610 TPRO 6.7 g/dL 01/12/2018 Comp Metabolic Tvq713 GLOB 2.6 g/dL 01/12/2018 Comp Metabolic Wkc933 A/G Ratio 1.6 Ratio 01/12/2018 Comp Metabolic Gha550 Osmo 277 mOsmo 01/12/2018 Free T4 Dee131 FREE T4 1.40 ng/dL 08/05/2017 %Hba1C Zkx176 % HbA1c 56463- 6 5.0 % 08/05/2017 %Hba1C Rrr337 Gluc Ave 97 mg/dL 08/05/2017 Cbc With [...] 29.5 pg 08/03/2017 Cbc With Differential Ord2 [place]% 9.3 % 08/03/2017 Cbc With Differential Ord2 [...] 2.10 K/ul 08/03/2017 Cbc With Differential Ord2 [place] ABS# 0.7 K/ul 08/03/2017 Cbc With Differential Ord2 Eos ABS# 0.1 K/ul 08/03/2017 Cbc With Differential Ord2 Baso ABS# 0.0 K/ul 08/03/2017 Vitamin D 25 Oh Qvx1542 VITAMIN D, 25 HYDROXY 52.73 ng/mL 08/03/2017 Lipid Ord30 CHOL 215 mg/dL 08/03/2017 Lipid Ord30 HDL 43.0 mg/dl 08/03/2017 Lipid Ord30 TRIG 278 mg/dL 08/03/2017 Lipid Ord30 LDL 116 mg/dL 08/03/2017 Lipid Ord30 C/HDL 5.0 Ratio 08/03/2017 Tsh Ord6 hTSH II 0.09 uIU/mL 08/03/2017 Comp Metabolic Elc211 NA 137 mEq/L 08/03/2017 Comp Metabolic Izn462 K 4.3 mEq/L 08/03/2017 Comp Metabolic Gdz383 CL 102 mEq/L 08/03/2017 Comp Metabolic Puk361 CO2 24.0 mEq/L 08/03/2017 Comp Metabolic Fow684 ANION GAP 15 08/03/2017 Comp Metabolic Oyc790 GLUCOSE 80 mg/dL 08/03/2017 Comp Metabolic Gid387 Creat 0.9 mg/dL 08/03/2017 Comp Metabolic Uvf391 eGFR 68 ml/min/1.73m2 08/03/2017 Comp Metabolic Rfs524 BUN 18 mg/dL 08/03/2017 Comp Metabolic Ufm759 B/C Ratio 20.5 Ratio 08/03/2017 Comp Metabolic Zjc805 CALCIUM 9.7 mg/dL 08/03/2017 Comp Metabolic Eny959 ALK PHOS 68 U/L 08/03/2017 Comp Metabolic Tig316 AST(SGOT) 14 U/L 08/03/2017 Comp Metabolic Iff718 ALT(SGPT) 14 U/L 08/03/2017 Comp Metabolic Hwq325 BILI T 0.6 mg/dL 08/03/2017 Comp Metabolic Lgh238 ALBUMIN 4.0 g/dL 08/03/2017 Comp Metabolic Cjq435 TPRO 6.4 g/dL 08/03/2017 Comp Metabolic Nha473 GLOB 2.4 g/dL 08/03/2017 Comp Metabolic Jbc198 A/G Ratio 1.7 Ratio 08/03/2017 Comp Metabolic Uqw578 Osmo 275 mOsmo 08/03/2017 %Hba1C Mtm008 % HbA1c 76012- 6 5.1 % 01/06/2017 %Hba1C Bzv150 Gluc Ave 100 mg/dL 01/06/2017 Lipid Ord30 CHOL 223 mg/dL 01/06/2017 Lipid Ord30 HDL 44.0 mg/dl 01/06/2017 Lipid Ord30 TRIG 292 mg/dL 01/06/2017 Lipid Ord30 LDL 121 mg/dL 01/06/2017 Lipid Ord30 C/HDL 5.1 Ratio 01/06/2017 Tsh Ord6 hTSH II 0.99 uIU/mL 01/06/2017 Free T4 Qir273 FREE T4 0.96 ng/dL 01/06/2017 Cbc With [...] 29.6 pg 01/06/2017 Cbc With Differential Ord2 [place]% 9.2 % 01/06/2017 Cbc With Differential Ord2 [...] 1.85 K/ul 01/06/2017 Cbc With Differential Ord2 [place] ABS# 0.6 K/ul 01/06/2017 Cbc With Differential Ord2 Eos ABS# 0.1 K/ul 01/06/2017 Cbc With Differential Ord2 Baso ABS# 0.0 K/ul 01/06/2017 Vitamin D 25 Oh Obr4034 VITAMIN D, 25 HYDROXY 35.10 ng/mL 01/06/2017 Comp Metabolic Cye686 NA 140 mEq/L 01/06/2017 Comp Metabolic Kzk925 K 4.3 mEq/L 01/06/2017 Comp Metabolic Hch538 CL 103 mEq/L 01/06/2017 Comp Metabolic Sgu692 CO2 29.0 mEq/L 01/06/2017 Comp Metabolic Ywh856 ANION GAP 12 01/06/2017 Comp Metabolic Iwf649 GLUCOSE 86 mg/dL 01/06/2017 Comp Metabolic Hfs799 Creat 0.8 mg/dL 01/06/2017 Comp Metabolic Pti964 eGFR 82 ml/min/1.73m2 01/06/2017 Comp Metabolic Oda246 BUN 19 mg/dL 01/06/2017 Comp Metabolic Kqr373 B/C Ratio 25.3 Ratio 01/06/2017 Comp Metabolic Tww271 CALCIUM 9.6 mg/dL 01/06/2017 Comp Metabolic Nnj394 ALK PHOS 77 U/L 01/06/2017 Comp Metabolic Pan831 AST(SGOT) 16 U/L 01/06/2017 Comp Metabolic Vpu951 ALT(SGPT) 18 U/L 01/06/2017 Comp Metabolic Ewh664 BILI T 0.4 mg/dL 01/06/2017 Comp Metabolic Dbp288 ALBUMIN 4.1 g/dL 01/06/2017 Comp Metabolic Wyn719 TPRO 6.7 g/dL 01/06/2017 Comp Metabolic Ytq814 GLOB 2.6 g/dL 01/06/2017 Comp Metabolic Ohl474 A/G Ratio 1.6 Ratio 01/06/2017 Comp Metabolic Xhy262 Osmo 281 mOsmo 01/06/2017 Vitamin D 25 Oh Hwz7532 VITAMIN D, 25 HYDROXY 42.77 ng/mL 07/09/2016 Free T4 Sye291 FREE T4 1.23 ng/dL 07/08/2016 Comp Metabolic Rcp170 NA 136 mEq/L 07/08/2016 Comp Metabolic Ots949 K 4.1 mEq/L 07/08/2016 Comp Metabolic Jhe542 CL 103 mEq/L 07/08/2016 Comp Metabolic Ddl371 CO2 26.0 mEq/L 07/08/2016 Comp Metabolic Ucu336 ANION GAP 11 07/08/2016 Comp Metabolic Ctv935 GLUCOSE 83 mg/dL 07/08/2016 Comp Metabolic Zgb835 Creat 0.8 mg/dL 07/08/2016 Comp Metabolic Qup140 eGFR 80 ml/min/1.73m2 07/08/2016 Comp Metabolic Juo207 BUN 22 mg/dL 07/08/2016 Comp Metabolic Yqi929 B/C Ratio 28.9 Ratio 07/08/2016 Comp Metabolic Ysd249 CALCIUM 9.8 mg/dL 07/08/2016 Comp Metabolic Rdp050 ALK PHOS 75 U/L 07/08/2016 Comp Metabolic Jkt265 AST(SGOT) 14 U/L 07/08/2016 Comp Metabolic Vzc347 ALT(SGPT) 15 U/L 07/08/2016 Comp Metabolic Gpr982 BILI T 0.4 mg/dL 07/08/2016 Comp Metabolic Yki269 ALBUMIN 4.1 g/dL 07/08/2016 Comp Metabolic Zhh440 TPRO 6.6 g/dL 07/08/2016 Comp Metabolic Kbp327 GLOB 2.5 g/dL 07/08/2016 Comp Metabolic Sqe183 A/G Ratio 1.7 Ratio 07/08/2016 Comp Metabolic Xbu508 Osmo 274 mOsmo 07/08/2016 %Hba1C Teq032 % HbA1c 16118- 6 5.4 % 07/08/2016 %Hba1C Azs917 Gluc Ave 108 mg/dL 07/08/2016 Cbc With [...] 29.8 pg 07/08/2016 Cbc With Differential Ord2 [place]% 10.1 % 07/08/2016 Cbc With Differential Ord2 [...] 1.89 K/ul 07/08/2016 Cbc With Differential Ord2 [place] ABS# 0.7 K/ul 07/08/2016 Cbc With Differential Ord2 Eos ABS# 0.2 K/ul 07/08/2016 Cbc With Differential Ord2 Baso ABS# 0.0 K/ul 07/08/2016 Tsh Ord6 hTSH II 0.21 uIU/mL 07/08/2016 Lipid Ord30 CHOL 210 mg/dL 07/08/2016 Lipid Ord30 HDL 41.0 mg/dl 07/08/2016 Lipid Ord30 TRIG 257 mg/dL 07/08/2016 Lipid Ord30 LDL 118 mg/dL 07/08/2016 Lipid Ord30 C/HDL 5.1 Ratio 07/08/2016 Vitamin D 25 Oh Eir6006 VITAMIN D, 25 HYDROXY 34.38 ng/mL 03/10/2016 %Hba1C Gxz116 % HbA1c 47815- 6 5.3 % 03/09/2016 %Hba1C Qaz058 Gluc Ave 105 mg/dL 03/09/2016 Comp Metabolic Gji847 NA 137 mEq/L 03/09/2016 Comp Metabolic Ewb161 K 4.5 mEq/L 03/09/2016 Comp Metabolic Iio768 CL 104 mEq/L 03/09/2016 Comp Metabolic Jlj894 CO2 27.0 mEq/L 03/09/2016 Comp Metabolic Yox089 ANION GAP 11 03/09/2016 Comp Metabolic Flu861 GLUCOSE 86 mg/dL 03/09/2016 Comp Metabolic Eon053 Creat 0.8 mg/dL 03/09/2016 Comp Metabolic Jcw426 eGFR 81 ml/min/1.73m2 03/09/2016 Comp Metabolic Hxu954 BUN 23 mg/dL 03/09/2016 Comp Metabolic Xej045 B/C Ratio 30.3 Ratio 03/09/2016 Comp Metabolic Atl044 CALCIUM 9.4 mg/dL 03/09/2016 Comp Metabolic Ecs111 ALK PHOS 69 U/L 03/09/2016 Comp Metabolic Xcd368 AST(SGOT) 14 U/L 03/09/2016 Comp Metabolic Lpm638 ALT(SGPT) 14 U/L 03/09/2016 Comp Metabolic Aqj839 BILI T 0.4 mg/dL 03/09/2016 Comp Metabolic Iwy101 ALBUMIN 4.1 g/dL 03/09/2016 Comp Metabolic Pwx001 TPRO 6.6 g/dL 03/09/2016 Comp Metabolic Sef353 GLOB 2.5 g/dL 03/09/2016 Comp Metabolic Bga332 A/G Ratio 1.6 Ratio 03/09/2016 Comp Metabolic Edi721 Osmo 277 mOsmo 03/09/2016 Tsh Ord6 hTSH [...] 28.9 pg 03/09/2016 Cbc With Differential Ord2 [place]% 11.1 % 03/09/2016 Cbc With Differential Ord2 [...] 2.16 K/ul 03/09/2016 Cbc With Differential Ord2 [place] ABS# 0.9 K/ul 03/09/2016 Cbc With Differential Ord2 Eos ABS# 0.1 K/ul 03/09/2016 Cbc With Differential Ord2 Baso ABS# 0.0 K/ul 03/09/2016 Lipid Ord30 CHOL 283 mg/dL 03/09/2016 Lipid Ord30 HDL 40.0 mg/dl 03/09/2016 Lipid Ord30 TRIG 271 mg/dL 03/09/2016 Lipid Ord30 LDL 189 mg/dL 03/09/2016 Lipid Ord30 C/HDL 7.1 Ratio 03/09/2016 Comp Metabolic Enm119 NA 137 mEq/L 09/15/2015 Comp Metabolic Smv909 K 4.4 mEq/L 09/15/2015 Comp Metabolic Uby957 CL 101 mEq/L 09/15/2015 Comp Metabolic Izs137 CO2 28.0 mEq/L 09/15/2015 Comp Metabolic Wfl273 ANION GAP 12 09/15/2015 Comp Metabolic Jig176 GLUCOSE 89 mg/dL 09/15/2015 Comp Metabolic Hvg620 Creat 0.8 mg/dL 09/15/2015 Comp Metabolic Ucf158 eGFR 73 ml/min/1.73m2 09/15/2015 Comp Metabolic Fql619 BUN 20 mg/dL 09/15/2015 Comp Metabolic Iub753 B/C Ratio 24.1 Ratio 09/15/2015 Comp Metabolic Qgr964 CALCIUM 10.1 mg/dL 09/15/2015 Comp Metabolic Efb708 ALK PHOS 72 U/L 09/15/2015 Comp Metabolic Zzj465 AST(SGOT) 16 U/L 09/15/2015 Comp Metabolic Anw964 ALT(SGPT) 15 U/L 09/15/2015 Comp Metabolic Oej964 BILI T 0.5 mg/dL 09/15/2015 Comp Metabolic Dvd378 ALBUMIN 4.4 g/dL 09/15/2015 Comp Metabolic Pwk305 TPRO 7.0 g/dL 09/15/2015 Comp Metabolic Nic996 GLOB 2.6 g/dL 09/15/2015 Comp Metabolic Ven413 A/G Ratio 1.7 Ratio 09/15/2015 Comp Metabolic Reg833 Osmo 276 mOsmo 09/15/2015 Tsh Ord6 hTSH II 2.99 uIU/mL 09/15/2015 Vitamin D 25 Oh Tvh6467 VITAMIN D, 25 HYDROXY 30.19 ng/mL 09/15/2015 [...] Lipid Ord30 C/HDL 7.0 Ratio 09/15/2015 %Hba1C Cxc093 % HbA1c 81454- 6 5.2 % 09/15/2015 %Hba1C Mec131 Gluc Ave 103 mg/dL 09/15/2015 Review of [...] Formatting Model/CDA Sections, Assigned to/Margarita Brock CPT-4: [id number] 07/27/2018 FLU VAC NO PRSV 4 SHANNON 3 YRS+ CPT-4: 02949 08/04/2017 ADMIN INFLUENZA VIRUS VAC CPT-4: G0008 08/04/2017 TRIAMCINOLONE ACET INJ NOS CPT-4: J3301 01/27/2017 THER/PROPH/DIAG INJ SC/IM CPT-4: 18116 01/27/2017 ADMIN INFLUENZA VIRUS VAC CPT-4: G0008 07/15/2016 FLU VACC 4 SHANNON 3 YRS PLUS IM SNOMED CT: [id number] CPT-4: 19552 07/15/2016 Vital Signs Date Vital 01/23/2019 Blood [...] 1: 132/76 Code: 8480-6 BMI: 34.5 Code: 45360-9 Heart Rate 1: 55 bpm Height: 5'4" SpO2: 99% Weight: 204 lbs 07/20/2018 Blood Pressure 1: 116/74 Code: 8480-6 BMI: 34.5 Code: 27525-2 Heart Rate 1: 52 bpm Height: 5'4" SpO2: 99% Weight: 204 lbs 04/14/2018 Blood Pressure 1: 128/76 Code: 8480-6 BMI: 34.5 Code: 19340-1 Heart Rate 1: 67 bpm Height: 5'4" SpO2: 95% Weight: 204 lbs 02/06/2018 Blood Pressure 1: 142/78 Code: 8480-6 BMI: 35.2 Code: 69285-8 Heart Rate 1: 58 bpm Height: 5'4" SpO2: 98% Weight: 208 lbs 01/12/2018 Blood Pressure 1: 132/82 Code: 8480-6 BMI: 34.8 Code: 98847-4 Height: 5'4" Weight: 206 lbs 08/04/2017 Blood Pressure 1: 140/82 Code: 8480-6 BMI: 31.9 Code: 41655-8 Heart Rate 1: 58 bpm Height: 5'4" SpO2: 99% Weight: 188 lbs 8 oz 07/19/2017 Blood Pressure 1: 136/76 Code: 8480-6 BMI: 32.0 Code: 75273-7 Heart Rate 1: 67 bpm Height: 5'4" SpO2: 97% Weight: 189 lbs 8 oz 05/05/2017 Blood Pressure 1: 142/80 Code: 8480-6 BMI: 32.4 Code: 98840-3 Heart Rate 1: 54 bpm Height: 5'4" SpO2: 98% Weight: 191 lbs 8 oz 01/27/2017 Blood Pressure 1: 132/82 Code: 8480-6 BMI: 34.1 Code: 85825-1 Heart Rate 1: 55 bpm Height: 5'4" SpO2: 99% Weight: 202 lbs 07/15/2016 Blood Pressure 1: 128/72 Code: 8480-6 BMI: 34.4 Code: 56713-1 Heart Rate 1: 50 bpm Height: 5'4" SpO2: 98% Weight: 203 lbs 8 oz 03/16/2016 Blood Pressure 1: 118/78 Code: 8480-6 BMI: 34.5 Code: 72732-0 Heart Rate 1: 55 bpm Height: 5'4" SpO2: 98% Weight: 204 lbs 09/15/2015 Blood Pressure 1: 134/72 Code: 8480-6 BMI: 34.6 Code: 22175-5 Heart Rate 1: 52 bpm Height: 5'4" SpO2: 99% Weight: 205 lbs 03/17/2015 Blood Pressure 1: 128/74 Code: 8480-6 BMI: 35.8 Code: 65852-1 Heart Rate 1: 59 bpm Height: 5'4" [...] data Encounters Encounter Performer Location Codes Date ([id number]) [id number] EST. PATIENT, LEVEL IV Diagnosis: Essential (primary) hypertension[ICD10: I10] Diagnosis: Type 2 diabetes mellitus without complications[ICD10: E11.9] Diagnosis: Paroxysmal atrial fibrillation[ICD10: I48.0] [facility] CPT-4: 47111 01/23/2019 ([id number]) Miscellaneous no charge Diagnosis: Paroxysmal atrial fibrillation[ICD10: I48.0] [facility] CPT-4: 74692 12/22/2018 ([id number]) [id number] EST. PATIENT, LEVEL IV Diagnosis: Paroxysmal atrial fibrillation[ICD10: I48.0] Diagnosis: Hypothyroidism, unspecified[ICD10: E03.9] Diagnosis: Essential (primary) hypertension[ICD10: I10] Ria Bermudez MD, [facility] CPT-4: 46888 12/19/2018 ([id number]) [id number] EST. PATIENT, LEVEL IV Diagnosis: Essential (primary) hypertension[ICD10: I10] Diagnosis: Type 2 diabetes mellitus with diabetic polyneuropathy[ICD10: E11.42] Diagnosis: Hypothyroidism, unspecified[ICD10: E03.9] Diagnosis: Mixed hyperlipidemia[ICD10: E78.2] Diagnosis: Lumbago with sciatica, right side[ICD10: M54.41] Delmis Bermudez MD, [facility] CPT-4: 62860 10/26/2018 ([id number]) [id number] EST. PATIENT, LEVEL IV Diagnosis: Type 2 diabetes mellitus with diabetic polyneuropathy[ICD10: E11.42] Diagnosis: Mixed hyperlipidemia[ICD10: E78.2] Diagnosis: Essential (primary) hypertension[ICD10: I10] Diagnosis: Vitamin D deficiency, unspecified[ICD10: E55.9] Diagnosis: Hypothyroidism, unspecified[ICD10: E03.9] Delmis Bermudez MD, [facility] CPT-4: 02245 07/20/2018 [id number]) [id number] EST. PATIENT, LEVEL IV Diagnosis: Essential (primary) hypertension[ICD10: I10] Diagnosis: Hypothyroidism, unspecified[ICD10: E03.9] Diagnosis: Mixed hyperlipidemia[ICD10: E78.2] Delmis Bermudez MD, [facility] CPT- 4: 92632 04/14/2018 [id number]) [address] EST. PATIENT, LEVEL III Diagnosis: Type 2 diabetes mellitus with diabetic polyneuropathy[ICD10: E11.42] Delmis Bermudez MD, [facility] CPT-4: 55878 02/06/2018 [id number]) 20320 EST. PATIENT, LEVEL IV Diagnosis: Mixed hyperlipidemia[ICD10: E78.2] Diagnosis: Hypothyroidism, unspecified[ICD10: E03.9] Diagnosis: Type 2 diabetes mellitus without complications[ICD10: E11.9] Delmis Bermudez MD, [facility] CPT-4: 58818 01/12/2018 ([id number]) 52118 EST. PATIENT, LEVEL IV Diagnosis: Essential (primary) hypertension[ICD10: I10] Diagnosis: Mixed hyperlipidemia[ICD10: E78.2] Diagnosis: Hypothyroidism, unspecified[ICD10: E03.9] Diagnosis: Type 2 diabetes mellitus without complications[ICD10: E11.9] Diagnosis: Encounter for immunization[ICD10: Z23] Delmis Bermudez MD, [facility] CPT-4: 13216 08/04/2017 [id number]) 58789 EST. PATIENT, LEVEL III Diagnosis: Diverticulitis of large intestine without perforation or abscess without bleeding[ICD10: K57.32] Delmis Bermudez MD, [facility] CPT-4: 02369 07/19/2017 ([id number]) 90686 EST. PATIENT, LEVEL III Diagnosis: Type 2 diabetes mellitus with diabetic polyneuropathy[ICD10: E11.42] Delmis Bermudez MD, [facility] CPT-4: 98948 05/05/2017 ([id number]) 06461 EST. PATIENT, LEVEL IV Diagnosis: Essential (primary) hypertension[ICD10: I10] Diagnosis: Type 2 diabetes mellitus without complications[ICD10: E11.9] Diagnosis: Mixed hyperlipidemia[ICD10: E78.2] Diagnosis: Allergic rhinitis due to pollen[ICD10: J30.1] Ria Bermudez MD, [facility] CPT-4: 65762 01/27/2017 ([id number]) 79008 EST. PATIENT, LEVEL IV Diagnosis: Type 2 diabetes mellitus without complications[ICD10: E11.9] Diagnosis: Essential (primary) hypertension[ICD10: I10] Diagnosis: Mixed hyperlipidemia[ICD10: E78.2] Ria Bermudez MD, [facility] CPT- 4: 45545 07/15/2016 ([id number]) 20228 EST. PATIENT, LEVEL IV Diagnosis: Type 2 diabetes mellitus without complications[ICD10: E11.9] Diagnosis: Polyneuropathy, unspecified[ICD10: G62.9] Diagnosis: Mixed hyperlipidemia[ICD10: E78.2] Ria Bermudez MD, [facility] CPT- 4: 60234 03/16/2016 ([id number]) 12580 EST. PATIENT, LEVEL IV Diagnosis: Type 2 diabetes mellitus without complications[ICD10: E11.9] Diagnosis: Essential (primary) hypertension[ICD10: I10] Diagnosis: Vitamin D deficiency, unspecified[ICD10: E55.9] Diagnosis: Mixed hyperlipidemia[ICD10: E78.2] Ria Bermudez MD, [facility] CPT- 4: 51981 09/15/2015 ([id number]) OFFICE VISIT, NEW - LEVEL 4 Diagnosis: ESSENTIAL HYPERTENSION[ICD9: 401.9] Diagnosis: Diabetes mellitus type 2, controlled[ICD9: 250.00] Diagnosis: Peripheral neuropathy[ICD9: 356.9] Delmis Bermudez MD, [facility] CPT- 4: 91966 03/17/2015 Plan of Care Planned Activity Notes [...] are starting to become less controlled. 01/23/2019 Patient Education: Patient Medication Summary Completed 01/23/2019 Patient Education: Diabetes Completed 01/23/2019 Appointment: Delmis Her WPtel: [address] [place], [place] [phone] (30 min) Complex 01/22/2019 Referral: Lindsey Poole She needs to arrive 15 minutes early. Patient informed. Completed 01/04/2019 Visit Plan: Afib -patient is doing MUCH better -heart sounds regular today -shortness of breath, dizziness and nausea have resolved - continue same meds and follow up with technical engineer as scheduled. Patient irineo hart understanding of plan. 12/22/2018 Appointment: Delmis Her WPtel[phone] (30 min) Complex 12/22/2018 Patient Education: [...] verbalized understanding of plan. Hypothyroidism-check labs today IOY-ejmfirnpal-zwximcjw to monitor 12/19/2018 Visit Plan: Atrial Fibrillation -new onset-Dr Bermudez in to evaluate patient- will start patient on cardizem cd and eliquis -get EKG and labs today- schedule echo and refer to cardiology-instructed patient and her to go to ER if symptoms worsen or do not improve -patient and verbalized understanding of plan. Hypothyroidism-check labs today IXI-gwupobbpfq-jsmcyarh to monitor 12/19/2018 Visit Plan: Atrial Fibrillation -new onset-Dr Bermudez in to evaluate patient- will start patient on cardizem cd and eliquis -get EKG and labs today- schedule echo and refer to cardiology-instructed patient and her to go to ER if symptoms worsen or do not improve -patient and verbalized understanding of plan. Hypothyroidism-check labs today GUE-msxzizvhvf-sjiezisj to monitor 12/19/2018 Appointment: Delmis Her WPtel: [phone] (30 min) Complex 12/19/2018 Patient Education: Patient Medication Summary Completed 12/19/2018 Patient Education: Eliquis - 18+ - No HI MA NE Completed 12/19/2018 Care Plan: Cbc With Differential Pending 12/19/2018 Care Plan: Comp Metabolic Pending 12/19/2018 Care Plan: Tsh Pending 12/19/2018 Care Plan: Free T4 Pending 12/19/2018 Care Plan: Referral Order SNOMED-CT : [id number] Pending 12/19/2018 Visit Plan: Hypertension - well [...] improve or if they worsen. 10/26/2018 Appointment: Dlemis Her WPtel: [address] [place], [place] [phone] (15 min) Moderate 10/26/2018 Patient Education: Patient [...] control. 07/20/2018 Appointment: Delmis Her WPtel: [address] [phone] (15 min) Moderate 07/20/2018 Patient Education: Patient [...] it 04/14/2018 Appointment: [facility]Ptel[facility] [phone] [phone] (15 min) Moderate 04/14/2018 Patient Education: Patient Medication Summary Completed 04/14/2018 Visit Plan: Diabetic peripheral neuropathy -paperwork for diabetic shoes completed today in the office and will fax to Dr Briscoe's office- Patient verbalized understanding of plan. 02/06/2018 Appointment: Delmis Her WPtel[facility] [phone] [phone] (15 min) Moderate 02/06/2018 Patient Education: [...] control. 01/12/2018 Appointment: [facility]Ptel[facility] [phone] [phone] (30 min) Complex 01/12/2018 Patient Education: [...] to medications. 08/04/2017 Appointment: Delmis Her WPtel: [address] [place] [address] (30 min) Complex 08/04/2017 Patient Education: Patient Medication Summary Completed 08/04/2017 Patient Education: Obesity Completed 08/04/2017 Care Plan: %Hba1C [facility] : 09167-1 Pending 08/04/2017 Visit Plan: Diverticulitis - rx for antibiotic sent to pt's pharmacy - pt advised to avoid seeds, nuts, popcorn, or any other food which has been proven to upset the pt's stomach. Call if symptoms do not improve or if any worse and we will check labs and CT scan. Patient verbalized understanding of plan. 07/19/2017 Appointment: Delmis Her WPtel: [address] [place] [address] (30 min) Complex 07/19/2017 Patient Education: Patient Medication Summary Completed 07/19/2017 Patient Education: Obesity Completed 07/19/2017 Visit Plan: Diabetic peripheral neuropathy - diabetes paperwork completed today in the office-patient does want to start medication-RX for gabapentin sent electronically and provided and instructed on use. Patient verbalized understanding of plan. 05/05/2017 Appointment: Delmis Her WPtel: [address] [place] [address] (30 min) Complex 05/05/2017 Patient Education: Patient Medication Summary Completed 05/05/2017 Patient Education: Obesity Completed 05/05/2017 Appointment: Delmis Her WPtel: [address] [place] [address] - Annual Wellness Visit 01/28/2017 Visit Plan: [...] kenalog 01/27/2017 Appointment: Ria Bermudez WPtel: [phone] [facility] (15 min) Moderate 01/27/2017 Patient Education: Patient Medication Summary Completed 01/27/2017 Patient Education: Obesity Completed 01/27/2017 Appointment: Ria Bermudez WPtel: [phone] [phone] (15 min) Moderate 01/11/2017 Visit Plan: Hypertension [...] me dications. 07/15/2016 Appointment: [facility] [phone] [facility] (15 min) Moderate 07/15/2016 Patient Education: Patient [...] this time. 03/16/2016 Appointment: [facility]el[facility] [phone] [facility] (15 min) Moderate 03/16/2016 Patient Education: Patient [...] are starting to become less controlled. Peripheral dvvhkkxxlt-AU-mnqoeabi foot exam today in the office and [...] are starting to become less controlled. Peripheral qpjsaaydmk-NF-jdpwdnkq foot exam today in the office and [...] are starting to become less controlled. Peripheral fupyvzewft-VG-xedhpurv foot exam today in the office and paperwork completed for diabetic shoes-see scanned document 03/17/2015 Appointment: Ria Bermudez WPtel: [facility] [place] New Patient 03/17/2015 Patient Education: Patient Medication Summary Completed 03/17/2015 Patient Education: Hypertension Completed 03/17/2015 Referral: Lindsey Poole Referral Appointment Requested Instructions Comment . Afib -patient is doing MUCH better -heart sounds regular today -shortness of breath, dizziness and nausea have resolved -continue same meds and follow up with technical engineer as scheduled. Patient verbalized understanding of plan. [...] are starting to become less controlled. Peripheral xzujkxhmjj-AB-loxdqdss foot exam today in the office and [...] are starting to become less controlled. Peripheral qqkyjzmplh-RM-czqsmxgr foot exam today in the office and [...] are starting to become less controlled. Peripheral zufxirctny-NZ-rniyhbse foot exam today in the office and [...] HOSPITAL ECHO -WE WILL SCHEDULE REFER TO [facility] WIFE -DR POOLE . Atrial Fibrillation -new onset-Dr Bermudez in to evaluate patient- will start patient on cardizem cd and eliquis -get EKG and labs today- schedule echo and refer to cardiology-instructed patient and her to go to ER if symptoms worsen or do not improve -patient and verbalized understanding of plan. Hypothyroidism-check labs today TZJ-rmvpqgydks-qxicqnft to monitor CARDIZEM CD 120MG DAILY ELIQUIS 5MG TWICE DAILY -SAMPLES PROVIDED EKG AND LABS TODAY AT THE HOSPITAL ECHO -WE WILL SCHEDULE REFER TO MID WIFE -DR POOLE . Atrial Fibrillation -new onset-Dr Bermudez in to evaluate patient- will start patient on cardizem cd and eliquis -get EKG and labs today- schedule echo and refer to cardiology-instructed patient and her to go to ER if symptoms worsen or do not improve -patient and verbalized understanding of plan. Hypothyroidism-check labs today BRA-pffmovrjkq-cyozpiah to monitor CARDIZEM CD 120MG DAILY ELIQUIS 5MG TWICE DAILY -SAMPLES PROVIDED EKG AND LABS TODAY AT THE HOSPITAL ECHO -WE WILL SCHEDULE REFER TO MID WIFE -DR POOLE . Atrial Fibrillation -new onset-Dr Bermudez in to evaluate patient- will start patient on cardizem cd and eliquis -get EKG and labs today- schedule echo and refer to cardiology-instructed patient and her to go to ER if symptoms worsen or do not improve -patient and verbalized understanding of plan. Hypothyroidism-check labs today JVP-ixwuetdess-hdequlri to monitor check labs today . Hypertension [...]
--- OUTSIDE RECORDS SUMMARY | 2019-04-04 07:01 | XMS REPORT | CCD ---
Author Author Delmis Her Organization Ria Bermudez MD, [facility] Address [address] [place] [address] Phone Care Team Providers Care Asset Coordinator Name Role Phone PP Unavailable CCM Unavailable Summary Purpose Interface Exchange Insurance Providers Payer name Policy type / Coverage type Covered green party ID Effective Begin Date Effective End Date WPS Medicare Part B Medicare Part B [id number] Unknown [facility] Medicare Part B [id number] Unknown Family history Son Diagnosis Age At [...] Unknown Retired 03/17/[address]: 038515369 Never smoker 03/17/[address]: 524307962 Never smoker 03/17/2015 Allergies, Adverse Reactions, Alerts Substance Reaction Codes Entered Date Inactivated Date Status * NO KNOWN FOOD ALLERGIES Unknown 03/17/2015 No Inactive Date Active ciprofloxacin RxNorm: 24702 03/17/2015 No Inactive Date Active Erythromycin RxNorm: 4053 03/17/2015 No Inactive Date Active Penicillin Unknown 03/17/2015 No Inactive Date Active [id number] REDUCTASE INHIBITORS myalgias, Unknown 03/16/2016 No Inactive Date Active SULFA(SULFONAMIDE ANTIBIOTICS) Unknown 03/17/2015 No Inactive Date Active Past Medical History Illness Codes Condition Status Onset Date Resolved Date Paroxysmal atrial fibrillation ICD-9: 427.31 ICD-10: I48.0 Active 12/19/2018 Unknown Essential (primary) hypertension ICD-9: 401.1 ICD-10: I10 Active 01/27/2017 Unknown Hypothyroidism, unspecified ICD-9: 244.9 ICD-10: E03.9 [...] ICD-9: 268.9 ICD-10: E55.9 Active 09/14/2015 Unknown Type 2 diabetes mellitus without complications ICD-9: 250.00 ICD-10: E11.9 Active 03/16/2015 Unknown Hypothryroidism Unknown Active 08/04/2017 Unknown Diverticulitis [...] Problems Condition Codes Effective Dates Condition Status Paroxysmal atrial fibrillation ICD-9: 427.31 ICD-10: I48.0 12/19/2018 Active Essential (primary) hypertension ICD-9: 401.1 ICD-10: I10 01/27/2017 Active Hypothyroidism, unspecified ICD-9: 244.9 ICD-10: E03.9 [...] unspecified ICD-9: 268.9 ICD-10: E55.9 09/14/2015 Active Type 2 diabetes mellitus without complications ICD-9: 250.00 ICD-10: E11.9 03/16/2015 Active Hypothryroidism Unknown 08/04/2017 Active Diverticulitis of [...] Fill Instructions levothyroxine 100 mcg tablet RxNorm: 334244 TAKE ONE TABLET BY MOUTH EVERY OTHER DAY ALTERNATE WITH 112 MCG TABLET 01/16/2019 06/14/2019 Active Zetia 10 mg tablet RxNorm: 817346 1/2 Tablet(s) PO daily 12/19/2018 No Stop Date Active Cardizem CD 120 mg capsule,extended release RxNorm: 580219 1 Capsule(s) PO daily 12/19/2018 06/16/2019 Active Eliquis 5 mg tablet RxNorm: 2915503 1 Tablet(s) PO BID 12/19/2018 No Stop Date Active gabapentin 100 mg capsule RxNorm: 869606 TAKE ONE CAPSULE BY MOUTH EVERY NIGHT AT BEDTIME 12/11/2018 02/08/2019 Active levothyroxine 112 mcg tablet RxNorm: 422451 TAKE ONE TABLET BY MOUTH EVERY OTHER DAY ALTERNATE WITH 100MCG TABLET 12/07/2018 03/06/2019 Active Zetia 10 mg tablet RxNorm: 362818 1 Tablet(s) PO daily 10/26/2018 12/18/2018 Inactive Zetia 10 mg tablet RxNorm: 849590 1/2 Tablet(s) PO daily 07/20/2018 10/25/2018 Inactive indapamide 1.25 mg tablet RxNorm: 407203 Tablet(s) TAKE ONE TABLET BY MOUTH DAILY 07/19/2018 07/13/2019 Active levothyroxine 112 mcg tablet RxNorm: 077290 TAKE ONE TABLET BY MOUTH EVERY OTHER DAY ALTERNATE WITH 100MCG TABLET 07/19/2018 11/15/2018 Inactive gabapentin 100 mg capsule RxNorm: 771480 TAKE ONE CAPSULE BY MOUTH EVERY NIGHT AT BEDTIME 06/05/2018 09/02/2018 Inactive Zetia 10 mg tablet RxNorm: 907792 1 Tablet(s) PO daily 05/11/2018 07/19/2018 Inactive Zetia 10 mg tablet RxNorm: 818433 1 Tablet(s) PO daily 05/11/2018 05/10/2018 Inactive indapamide 1.25 mg tablet RxNorm: 833707 TAKE ONE TABLET BY MOUTH DAILY 04/05/2018 07/18/2018 Inactive enalapril maleate 5 mg tablet RxNorm: 121257 TAKE ONE TABLET BY MOUTH DAILY 04/05/2018 12/30/2018 Inactive levothyroxine 112 mcg tablet RxNorm: 056872 1 Tablet(s) PO every other day . ALTERNATE WITH 100 MCG TABLET. 01/24/2018 05/23/2018 Inactive Crestor 10 mg tablet RxNorm: 355432 1 Tablet(s) PO QHS 01/24/2018 04/13/2018 Inactive levothyroxine 100 mcg tablet RxNorm: 446544 Tablet(s) TAKE ONE TABLET BY MOUTH EVERY OTHER DAY. ALTERNATE WITH 112 MCG TABLET. 01/24/2018 05/23/2018 Inactive Crestor 10 mg tablet RxNorm: 931792 1 Tablet(s) PO QHS 01/24/2018 01/23/2018 Inactive gabapentin 100 mg capsule RxNorm: 860591 TAKE ONE CAPSULE BY MOUTH EVERY NIGHT AT BEDTIME 01/05/2018 06/04/2018 Inactive indapamide 1.25 mg tablet RxNorm: 115331 TAKE ONE TABLET BY MOUTH DAILY 01/05/2018 04/04/2018 Inactive Zocor 20 mg tablet RxNorm: 981013 TAKE ONE TABLET BY MOUTH DAILY 12/02/2017 01/11/2018 Inactive Phenergan-Codeine 6.25 mg-10 mg/5 mL syrup RxNorm: 810308 5-10 Milliliter(s) PO Q6 as needed cough 11/09/2017 No Stop Date Active Tamiflu 75 mg capsule RxNorm: 266685 1 Capsule(s) PO BID 11/09/2017 11/13/2017 Inactive Tamiflu 75 mg capsule RxNorm: 980140 1 Capsule(s) PO BID 11/09/2017 11/08/2017 Inactive levothyroxine 100 mcg tablet RxNorm: 829889 TAKE ONE TABLET BY MOUTH DAILY 10/28/2017 01/23/2018 Inactive indapamide 1.25 mg tablet RxNorm: 945957 TAKE ONE TABLET BY MOUTH DAILY 09/09/2017 01/04/2018 Inactive levothyroxine 100 mcg tablet RxNorm: 611678 1 Tablet(s) PO daily TAKE ONE TABLET BY MOUTH DAILY 08/04/2017 10/27/2017 Inactive Flagyl 500 mg tablet RxNorm: 794209 1 Tablet(s) PO TID 07/19/2017 07/28/2017 Inactive enalapril maleate 5 mg tablet RxNorm: 680518 TAKE ONE TABLET BY MOUTH DAILY 06/30/2017 12/26/2017 Inactive indapamide 1.25 mg tablet RxNorm: 740875 TAKE ONE TABLET BY MOUTH DAILY 05/26/2017 09/08/2017 Inactive Zocor 20 mg tablet RxNorm: 729125 TAKE ONE TABLET BY MOUTH DAILY 05/26/2017 10/22/2017 Inactive gabapentin 100 mg capsule RxNorm: 732283 1 Capsule(s) PO QHS 05/05/2017 09/01/2017 Inactive Kenalog 40 mg/mL suspension for injection RxNorm: 1587088 1 Milliliter(s) Inj 01/27/2017 01/27/2017 Inactive levothyroxine 112 mcg tablet RxNorm: 990630 TAKE ONE TABLET BY MOUTH DAILY 01/17/2017 08/03/2017 Inactive Zocor 20 mg tablet RxNorm: 693220 TAKE ONE TABLET BY MOUTH DAILY 11/08/2016 05/06/2017 Inactive indapamide 1.25 mg tablet RxNorm: 328715 TAKE ONE TABLET BY MOUTH DAILY 11/08/2016 05/06/2017 Inactive enalapril maleate 5 mg tablet RxNorm: 483959 TAKE ONE TABLET BY MOUTH DAILY 09/01/2016 05/28/2017 Inactive indapamide 1.25 mg tablet RxNorm: 216480 TAKE ONE TABLET BY MOUTH DAILY 08/02/2016 10/30/2016 Inactive Vitamin D2 50,000 unit capsule RxNorm: 787615 1 Capsule(s) PO QW 07/15/2016 01/17/2018 Inactive indapamide 1.25 mg tablet RxNorm: 529641 TAKE ONE TABLET BY MOUTH DAILY 04/29/2016 07/27/2016 Inactive Vitamin D2 50,000 unit capsule RxNorm: 657508 1 Capsule(s) PO QW 03/16/2016 07/14/2016 Inactive Zocor 20 mg tablet RxNorm: 601185 1 Tablet(s) PO daily 03/16/2016 10/11/2016 Inactive levothyroxine 112 mcg tablet RxNorm: 614325 TAKE ONE TABLET BY MOUTH DAILY 01/07/2016 12/31/2016 Inactive indapamide 1.25 mg tablet RxNorm: 028680 1 Tablet(s) PO daily 12/03/2015 03/31/2016 Inactive Vitamin D2 50,000 unit capsule RxNorm: 824711 1 Capsule(s) PO QW 09/26/2015 09/25/2015 Inactive Lipitor 10 mg tablet RxNorm: 934028 1 Tablet(s) PO daily 09/26/2015 03/15/2016 Inactive Vitamin D2 50,000 unit capsule RxNorm: 225689 1 Capsule(s) PO QW 09/26/2015 03/15/2016 Inactive enalapril maleate 5 mg tablet RxNorm: 719732 1 Tablet(s) PO daily 08/06/2015 07/30/2016 Inactive levothyroxine 112 mcg tablet RxNorm: 014786 1 Tablet(s) PO daily 04/04/2015 10/30/2015 Inactive Vitamin D3 2,000 unit capsule RxNorm: 542606 1 Capsule(s) PO daily No Start Date Active aspirin 500 mg tablet RxNorm: 394203 1 Tablet(s) PO daily No Start Date Active Co Q-10 oral RxNorm: 68964 oral No Start Date Active Phenergan-Codeine 6.25 mg-10 mg/5 mL syrup RxNorm: 389729 5-10 Milliliter(s) PO Q6 as needed cough No Start Date 11/08/2017 Inactive Lipitor 20 mg tablet RxNorm: 031490 1 Tablet(s) PO daily No Start Date 09/14/2015 Inactive indapamide 1.25 mg tablet RxNorm: 376436 1 Tablet(s) PO daily No Start Date 12/02/2015 Inactive enalapril maleate 5 mg tablet RxNorm: 738423 1 Tablet(s) PO daily No Start Date 08/05/2015 Inactive levothyroxine 112 mcg tablet RxNorm: 254053 1 Tablet(s) PO daily No Start Date 04/03/2015 Inactive Medication Administered Medication Codes Instructions Start Date Status Kenalog 40 mg/mL suspension for injection RxNorm: 8153837 1Milliliter 01/27/2017 No longer Active Immunizations Vaccine Codes Date Status Influenza CVX: 141 07/27/2018 completed Influenza CVX: 141 08/04/2017 completed Influenza CVX: 141 07/15/2016 completed Pneumococcal CVX: 133 07/25/2015 completed Zoster CVX: 121 07/25/2015 completed Assessments Condition Codes Effective Dates Paroxysmal atrial fibrillation ICD-10: I48.0 ICD-9: 427.31 12/22/2018 Hypothyroidism, unspecified ICD-10: E03.9 ICD-9: 244.9 12/19/2018 Essential (primary) hypertension ICD-10: I10 ICD-9: 401.1 12/19/2018 Lumbago with sciatica, right side ICD-10: M54.41 ICD-9: 724.3 10/26/2018 Type 2 diabetes mellitus with diabetic polyneuropathy ICD-10: E11.42 ICD-9: 250.60 10/26/2018 Mixed hyperlipidemia ICD-10: E78.2 ICD-9: 272.2 10/26/2018 Encounter for screening mammogram for malignant neoplasm of breast ICD-10: Z12.31 ICD-9: V76.12 08/15/2018 Encounter for immunization ICD-10: Z23 ICD-9: V04.81 07/27/2018 Vitamin D deficiency, unspecified ICD-10: E55.9 ICD-9: 268.9 07/20/2018 Type 2 diabetes mellitus without complications ICD-10: E11.9 ICD-9: 250.00 01/12/2018 Diverticulitis of large intestine without perforation or [...] Reason For Visit Effective Dates Notes dizziness 12/22/2018 dizziness 12/19/2018 diabetes mellitus 10/26/2018 vaccination against influenza 07/27/2018 diabetes mellitus 07/20/2018 diabetes mellitus 04/14/2018 diabetes mellitus 02/06/2018 diabetes mellitus 01/12/2018 diabetes mellitus 08/04/2017 abdominal pain 07/19/2017 diabetes mellitus 05/05/2017 hypertension 01/27/2017 hypertension 07/15/2016 hypertension 03/16/2016 fatigue 09/15/2015 diabetes mellitus 03/17/2015 Results Observation Observation Code Item Item Code Result Date Tsh Ord6 TSH (3rd IS) 2.55 uIU/mL 10/27/2018 Free T4 Kqy066 FREE T4 1.07 ng/dL 10/27/2018 Comp Metabolic Wiv667 NA 138 mEq/L 10/26/2018 Comp Metabolic Dhy873 K 4.3 mEq/L 10/26/2018 Comp Metabolic Bdz413 CL 102 mEq/L 10/26/2018 Comp Metabolic Vaq934 CO2 26.0 mEq/L 10/26/2018 Comp Metabolic Obn178 ANION GAP 14 10/26/2018 Comp Metabolic Jlh575 GLUCOSE 88 mg/dL 10/26/2018 Comp Metabolic Nsm390 Creat 0.9 mg/dL 10/26/2018 Comp Metabolic Gua777 eGFR 63 ml/min/1.73m2 10/26/2018 Comp Metabolic Bos087 BUN 25 mg/dL 10/26/2018 Comp Metabolic Yhs257 B/C Ratio 26.6 Ratio 10/26/2018 Comp Metabolic Tai409 CALCIUM 10.1 mg/dL 10/26/2018 Comp Metabolic Uvh994 ALK PHOS 77 U/L 10/26/2018 Comp Metabolic Rnj513 AST(SGOT) 16 U/L 10/26/2018 Comp Metabolic Btg218 ALT(SGPT) 16 U/L 10/26/2018 Comp Metabolic Uup434 BILI T 0.5 mg/dL 10/26/2018 Comp Metabolic Nym706 ALBUMIN 4.3 g/dL 10/26/2018 Comp Metabolic Nim069 TPRO 6.8 g/dL 10/26/2018 Comp Metabolic Lqz651 GLOB 2.5 g/dL 10/26/2018 Comp Metabolic Ooa229 A/G Ratio 1.7 Ratio 10/26/2018 Comp Metabolic Zba426 Osmo 279 mOsmo 10/26/2018 %Hba1C Uzk037 % HbA1c 31889- 6 5.2 % 10/26/2018 %Hba1C Bvq003 Gluc Ave 103 mg/dL 10/26/2018 Cbc With [...] 29.1 pg 10/26/2018 Cbc With Differential Ord2 [place]% 9.6 % 10/26/2018 Cbc With Differential Ord2 [...] 1.94 K/ul 10/26/2018 Cbc With Differential Ord2 [place] ABS# 0.6 K/ul 10/26/2018 Cbc With Differential Ord2 Eos ABS# 0.1 K/ul 10/26/2018 Cbc With Differential Ord2 Baso ABS# 0.0 K/ul 10/26/2018 Lipid Ord30 CHOL 238 mg/dL 10/26/2018 Lipid Ord30 HDL 42.0 mg/dl 10/26/2018 Lipid Ord30 TRIG 270 mg/dL 10/26/2018 Lipid Ord30 LDL 142 mg/dL 10/26/2018 Lipid Ord30 C/HDL 5.7 Ratio 10/26/2018 %Hba1C Sii478 % HbA1c 23077- 6 5.3 % 07/20/2018 %Hba1C Fuq504 Gluc Ave 105 mg/dL 07/20/2018 Comp Metabolic Tzs762 NA 139 mEq/L 07/20/2018 Comp Metabolic Obv751 K 5.1 mEq/L 07/20/2018 Comp Metabolic Tyq671 CL 106 mEq/L 07/20/2018 Comp Metabolic Dad172 CO2 19.0 mEq/L 07/20/2018 Comp Metabolic Mnq805 ANION GAP 19 07/20/2018 Comp Metabolic Tzi345 GLUCOSE 88 mg/dL 07/20/2018 Comp Metabolic Wjh561 Creat 0.8 mg/dL 07/20/2018 Comp Metabolic Ruo315 eGFR 77 ml/min/1.73m2 07/20/2018 Comp Metabolic Avf971 BUN 25 mg/dL 07/20/2018 Comp Metabolic Xbm340 B/C Ratio 31.6 Ratio 07/20/2018 Comp Metabolic Tzn466 CALCIUM 10.0 mg/dL 07/20/2018 Comp Metabolic Odg670 ALK PHOS 81 U/L 07/20/2018 Comp Metabolic Pav763 AST(SGOT) 26 U/L 07/20/2018 Comp Metabolic Fwp596 ALT(SGPT) 16 U/L 07/20/2018 Comp Metabolic Ubm579 BILI T 0.5 mg/dL 07/20/2018 Comp Metabolic Ydj861 ALBUMIN 4.5 g/dL 07/20/2018 Comp Metabolic Wgl870 TPRO 7.2 g/dL 07/20/2018 Comp Metabolic Kbs861 GLOB 2.7 g/dL 07/20/2018 Comp Metabolic Erk228 A/G Ratio 1.6 Ratio 07/20/2018 Comp Metabolic Hoa335 Osmo 281 mOsmo 07/20/2018 Free T4 Pnz519 FREE T4 1.00 ng/dL 07/20/2018 Tsh Ord6 TSH (3rd IS) 2.05 uIU/mL 07/20/2018 Vitamin D 25 Oh Pax5873 VITAMIN D, 25 HYDROXY 57.07 ng/mL 07/20/2018 Lipid Ord30 CHOL 242 mg/dL 07/20/2018 Lipid Ord30 HDL 43.0 mg/dl 07/20/2018 Lipid Ord30 TRIG 314 mg/dL 07/20/2018 Lipid Ord30 LDL 136 mg/dL 07/20/2018 Lipid Ord30 C/HDL 5.6 Ratio 07/20/2018 Free T4 Zcb790 FREE T4 1.24 ng/dL 04/14/2018 Tsh Ord6 TSH (3rd IS) 0.65 uIU/mL 04/14/2018 %Hba1C Jzu926 % HbA1c 34244- 6 5.1 % 01/12/2018 %Hba1C Kxu483 Gluc Ave 100 mg/dL 01/12/2018 Free T4 Ciw435 FREE T4 0.97 ng/dL 01/12/2018 Lipid Ord30 [...] 29.7 pg 01/12/2018 Cbc With Differential Ord2 [place]% 10.3 % 01/12/2018 Cbc With Differential Ord2 [...] 2.40 K/ul 01/12/2018 Cbc With Differential Ord2 [place] ABS# 0.8 K/ul 01/12/2018 Cbc With Differential Ord2 Eos ABS# 0.2 K/ul 01/12/2018 Cbc With Differential Ord2 Baso ABS# 0.0 K/ul 01/12/2018 Comp Metabolic Wpt234 NA 138 mEq/L 01/12/2018 Comp Metabolic Pbn606 K 4.1 mEq/L 01/12/2018 Comp Metabolic Ifi261 CL 100 mEq/L 01/12/2018 Comp Metabolic Dzg412 CO2 28.0 mEq/L 01/12/2018 Comp Metabolic Pjh943 ANION GAP 14 01/12/2018 Comp Metabolic Koz665 GLUCOSE 84 mg/dL 01/12/2018 Comp Metabolic Zrf379 Creat 0.8 mg/dL 01/12/2018 Comp Metabolic Vgc805 eGFR 78 ml/min/1.73m2 01/12/2018 Comp Metabolic Dyg476 BUN 20 mg/dL 01/12/2018 Comp Metabolic Vqp439 B/C Ratio 25.6 Ratio 01/12/2018 Comp Metabolic Ubu614 CALCIUM 9.6 mg/dL 01/12/2018 Comp Metabolic Pjw424 ALK PHOS 76 U/L 01/12/2018 Comp Metabolic Mlw583 AST(SGOT) 16 U/L 01/12/2018 Comp Metabolic Ctk183 ALT(SGPT) 16 U/L 01/12/2018 Comp Metabolic Kvt280 BILI T 0.4 mg/dL 01/12/2018 Comp Metabolic Mwx136 ALBUMIN 4.1 g/dL 01/12/2018 Comp Metabolic Hbi321 TPRO 6.7 g/dL 01/12/2018 Comp Metabolic Pwg876 GLOB 2.6 g/dL 01/12/2018 Comp Metabolic Vja548 A/G Ratio 1.6 Ratio 01/12/2018 Comp Metabolic Pho277 Osmo 277 mOsmo 01/12/2018 Free T4 Tnv682 FREE T4 1.40 ng/dL 08/05/2017 %Hba1C Zuk185 % HbA1c 84543- 6 5.0 % 08/05/2017 %Hba1C Yqh216 Gluc Ave 97 mg/dL 08/05/2017 Cbc With [...] 29.5 pg 08/03/2017 Cbc With Differential Ord2 [place]% 9.3 % 08/03/2017 Cbc With Differential Ord2 [...] 2.10 K/ul 08/03/2017 Cbc With Differential Ord2 [place] ABS# 0.7 K/ul 08/03/2017 Cbc With Differential Ord2 Eos ABS# 0.1 K/ul 08/03/2017 Cbc With Differential Ord2 Baso ABS# 0.0 K/ul 08/03/2017 Vitamin D 25 Oh Cvi9618 VITAMIN D, 25 HYDROXY 52.73 ng/mL 08/03/2017 Lipid Ord30 CHOL 215 mg/dL 08/03/2017 Lipid Ord30 HDL 43.0 mg/dl 08/03/2017 Lipid Ord30 TRIG 278 mg/dL 08/03/2017 Lipid Ord30 LDL 116 mg/dL 08/03/2017 Lipid Ord30 C/HDL 5.0 Ratio 08/03/2017 Tsh Ord6 hTSH II 0.09 uIU/mL 08/03/2017 Comp Metabolic Qxo117 NA 137 mEq/L 08/03/2017 Comp Metabolic Qvt849 K 4.3 mEq/L 08/03/2017 Comp Metabolic Anw251 CL 102 mEq/L 08/03/2017 Comp Metabolic Kim333 CO2 24.0 mEq/L 08/03/2017 Comp Metabolic Fwi116 ANION GAP 15 08/03/2017 Comp Metabolic Lox025 GLUCOSE 80 mg/dL 08/03/2017 Comp Metabolic Lzu119 Creat 0.9 mg/dL 08/03/2017 Comp Metabolic Wfu925 eGFR 68 ml/min/1.73m2 08/03/2017 Comp Metabolic Rob259 BUN 18 mg/dL 08/03/2017 Comp Metabolic Syl466 B/C Ratio 20.5 Ratio 08/03/2017 Comp Metabolic Cfq969 CALCIUM 9.7 mg/dL 08/03/2017 Comp Metabolic Qvt592 ALK PHOS 68 U/L 08/03/2017 Comp Metabolic Gzt140 AST(SGOT) 14 U/L 08/03/2017 Comp Metabolic Jor691 ALT(SGPT) 14 U/L 08/03/2017 Comp Metabolic Eup580 BILI T 0.6 mg/dL 08/03/2017 Comp Metabolic Fbg167 ALBUMIN 4.0 g/dL 08/03/2017 Comp Metabolic Iga563 TPRO 6.4 g/dL 08/03/2017 Comp Metabolic Yvx438 GLOB 2.4 g/dL 08/03/2017 Comp Metabolic Caj687 A/G Ratio 1.7 Ratio 08/03/2017 Comp Metabolic Eat803 Osmo 275 mOsmo 08/03/2017 %Hba1C Eha380 % HbA1c 32984- 6 5.1 % 01/06/2017 %Hba1C Yqs107 Gluc Ave 100 mg/dL 01/06/2017 Lipid Ord30 CHOL 223 mg/dL 01/06/2017 Lipid Ord30 HDL 44.0 mg/dl 01/06/2017 Lipid Ord30 TRIG 292 mg/dL 01/06/2017 Lipid Ord30 LDL 121 mg/dL 01/06/2017 Lipid Ord30 C/HDL 5.1 Ratio 01/06/2017 Tsh Ord6 hTSH II 0.99 uIU/mL 01/06/2017 Free T4 Cpf016 FREE T4 0.96 ng/dL 01/06/2017 Cbc With [...] 29.6 pg 01/06/2017 Cbc With Differential Ord2 [place]% 9.2 % 01/06/2017 Cbc With Differential Ord2 [...] 1.85 K/ul 01/06/2017 Cbc With Differential Ord2 [place] ABS# 0.6 K/ul 01/06/2017 Cbc With Differential Ord2 Eos ABS# 0.1 K/ul 01/06/2017 Cbc With Differential Ord2 Baso ABS# 0.0 K/ul 01/06/2017 Vitamin D 25 Oh Qao1281 VITAMIN D, 25 HYDROXY 35.10 ng/mL 01/06/2017 Comp Metabolic Ggv201 NA 140 mEq/L 01/06/2017 Comp Metabolic Kwn564 K 4.3 mEq/L 01/06/2017 Comp Metabolic Gtn435 CL 103 mEq/L 01/06/2017 Comp Metabolic Yow116 CO2 29.0 mEq/L 01/06/2017 Comp Metabolic Jkc471 ANION GAP 12 01/06/2017 Comp Metabolic Zth984 GLUCOSE 86 mg/dL 01/06/2017 Comp Metabolic Nym057 Creat 0.8 mg/dL 01/06/2017 Comp Metabolic Pky176 eGFR 82 ml/min/1.73m2 01/06/2017 Comp Metabolic Lrh428 BUN 19 mg/dL 01/06/2017 Comp Metabolic Usm793 B/C Ratio 25.3 Ratio 01/06/2017 Comp Metabolic Pcy527 CALCIUM 9.6 mg/dL 01/06/2017 Comp Metabolic Iwk107 ALK PHOS 77 U/L 01/06/2017 Comp Metabolic Ekc997 AST(SGOT) 16 U/L 01/06/2017 Comp Metabolic Miz358 ALT(SGPT) 18 U/L 01/06/2017 Comp Metabolic Cyz899 BILI T 0.4 mg/dL 01/06/2017 Comp Metabolic Sgr894 ALBUMIN 4.1 g/dL 01/06/2017 Comp Metabolic Dmh929 TPRO 6.7 g/dL 01/06/2017 Comp Metabolic Bka649 GLOB 2.6 g/dL 01/06/2017 Comp Metabolic Krb804 A/G Ratio 1.6 Ratio 01/06/2017 Comp Metabolic Nrg877 Osmo 281 mOsmo 01/06/2017 Vitamin D 25 Oh Ceb0097 VITAMIN D, 25 HYDROXY 42.77 ng/mL 07/09/2016 Free T4 Yvs670 FREE T4 1.23 ng/dL 07/08/2016 Comp Metabolic Aum259 NA 136 mEq/L 07/08/2016 Comp Metabolic Fof406 K 4.1 mEq/L 07/08/2016 Comp Metabolic Hrk794 CL 103 mEq/L 07/08/2016 Comp Metabolic Mcf689 CO2 26.0 mEq/L 07/08/2016 Comp Metabolic Xeo401 ANION GAP 11 07/08/2016 Comp Metabolic Vug474 GLUCOSE 83 mg/dL 07/08/2016 Comp Metabolic Zpu584 Creat 0.8 mg/dL 07/08/2016 Comp Metabolic Uig396 eGFR 80 ml/min/1.73m2 07/08/2016 Comp Metabolic Aht517 BUN 22 mg/dL 07/08/2016 Comp Metabolic Aky724 B/C Ratio 28.9 Ratio 07/08/2016 Comp Metabolic Wlz806 CALCIUM 9.8 mg/dL 07/08/2016 Comp Metabolic Aek267 ALK PHOS 75 U/L 07/08/2016 Comp Metabolic Zfz830 AST(SGOT) 14 U/L 07/08/2016 Comp Metabolic Cxv617 ALT(SGPT) 15 U/L 07/08/2016 Comp Metabolic Nnh730 BILI T 0.4 mg/dL 07/08/2016 Comp Metabolic Tpw443 ALBUMIN 4.1 g/dL 07/08/2016 Comp Metabolic Fgo127 TPRO 6.6 g/dL 07/08/2016 Comp Metabolic Zgq198 GLOB 2.5 g/dL 07/08/2016 Comp Metabolic Clc467 A/G Ratio 1.7 Ratio 07/08/2016 Comp Metabolic Ndy030 Osmo 274 mOsmo 07/08/2016 %Hba1C Zpg346 % HbA1c 43989- 6 5.4 % 07/08/2016 %Hba1C Xcr354 Gluc Ave 108 mg/dL 07/08/2016 Cbc With [...] 29.8 pg 07/08/2016 Cbc With Differential Ord2 [place]% 10.1 % 07/08/2016 Cbc With Differential Ord2 [...] 1.89 K/ul 07/08/2016 Cbc With Differential Ord2 [place] ABS# 0.7 K/ul 07/08/2016 Cbc With Differential Ord2 Eos ABS# 0.2 K/ul 07/08/2016 Cbc With Differential Ord2 Baso ABS# 0.0 K/ul 07/08/2016 Tsh Ord6 hTSH II 0.21 uIU/mL 07/08/2016 Lipid Ord30 CHOL 210 mg/dL 07/08/2016 Lipid Ord30 HDL 41.0 mg/dl 07/08/2016 Lipid Ord30 TRIG 257 mg/dL 07/08/2016 Lipid Ord30 LDL 118 mg/dL 07/08/2016 Lipid Ord30 C/HDL 5.1 Ratio 07/08/2016 Vitamin D 25 Oh Rns7299 VITAMIN D, 25 HYDROXY 34.38 ng/mL 03/10/2016 %Hba1C Ulh205 % HbA1c 37155- 6 5.3 % 03/09/2016 %Hba1C Mqm062 Gluc Ave 105 mg/dL 03/09/2016 Comp Metabolic Wpe195 NA 137 mEq/L 03/09/2016 Comp Metabolic Jmo488 K 4.5 mEq/L 03/09/2016 Comp Metabolic Bns666 CL 104 mEq/L 03/09/2016 Comp Metabolic Itr536 CO2 27.0 mEq/L 03/09/2016 Comp Metabolic Ibz848 ANION GAP 11 03/09/2016 Comp Metabolic Nca037 GLUCOSE 86 mg/dL 03/09/2016 Comp Metabolic Tda330 Creat 0.8 mg/dL 03/09/2016 Comp Metabolic Aou818 eGFR 81 ml/min/1.73m2 03/09/2016 Comp Metabolic Wep518 BUN 23 mg/dL 03/09/2016 Comp Metabolic Ipy075 B/C Ratio 30.3 Ratio 03/09/2016 Comp Metabolic Bsf908 CALCIUM 9.4 mg/dL 03/09/2016 Comp Metabolic Efr072 ALK PHOS 69 U/L 03/09/2016 Comp Metabolic Ccg284 AST(SGOT) 14 U/L 03/09/2016 Comp Metabolic Csr490 ALT(SGPT) 14 U/L 03/09/2016 Comp Metabolic Asx083 BILI T 0.4 mg/dL 03/09/2016 Comp Metabolic Aoe806 ALBUMIN 4.1 g/dL 03/09/2016 Comp Metabolic Cqu811 TPRO 6.6 g/dL 03/09/2016 Comp Metabolic Gkp826 GLOB 2.5 g/dL 03/09/2016 Comp Metabolic Gne742 A/G Ratio 1.6 Ratio 03/09/2016 Comp Metabolic Fdx609 Osmo 277 mOsmo 03/09/2016 Tsh Ord6 hTSH [...] 28.9 pg 03/09/2016 Cbc With Differential Ord2 [place]% 11.1 % 03/09/2016 Cbc With Differential Ord2 [...] 2.16 K/ul 03/09/2016 Cbc With Differential Ord2 [place] ABS# 0.9 K/ul 03/09/2016 Cbc With Differential Ord2 Eos ABS# 0.1 K/ul 03/09/2016 Cbc With Differential Ord2 Baso ABS# 0.0 K/ul 03/09/2016 Lipid Ord30 CHOL 283 mg/dL 03/09/2016 Lipid Ord30 HDL 40.0 mg/dl 03/09/2016 Lipid Ord30 TRIG 271 mg/dL 03/09/2016 Lipid Ord30 LDL 189 mg/dL 03/09/2016 Lipid Ord30 C/HDL 7.1 Ratio 03/09/2016 Comp Metabolic Ybw146 NA 137 mEq/L 09/15/2015 Comp Metabolic Nvk317 K 4.4 mEq/L 09/15/2015 Comp Metabolic Psy660 CL 101 mEq/L 09/15/2015 Comp Metabolic Cwb979 CO2 28.0 mEq/L 09/15/2015 Comp Metabolic Rwb668 ANION GAP 12 09/15/2015 Comp Metabolic Gym463 GLUCOSE 89 mg/dL 09/15/2015 Comp Metabolic Ush433 Creat 0.8 mg/dL 09/15/2015 Comp Metabolic Cge279 eGFR 73 ml/min/1.73m2 09/15/2015 Comp Metabolic Vdu037 BUN 20 mg/dL 09/15/2015 Comp Metabolic Ufn543 B/C Ratio 24.1 Ratio 09/15/2015 Comp Metabolic Xyk108 CALCIUM 10.1 mg/dL 09/15/2015 Comp Metabolic Kxj421 ALK PHOS 72 U/L 09/15/2015 Comp Metabolic Tjq438 AST(SGOT) 16 U/L 09/15/2015 Comp Metabolic Dbc771 ALT(SGPT) 15 U/L 09/15/2015 Comp Metabolic Vhb986 BILI T 0.5 mg/dL 09/15/2015 Comp Metabolic Wpr126 ALBUMIN 4.4 g/dL 09/15/2015 Comp Metabolic Rgd787 TPRO 7.0 g/dL 09/15/2015 Comp Metabolic Tao627 GLOB 2.6 g/dL 09/15/2015 Comp Metabolic Xua636 A/G Ratio 1.7 Ratio 09/15/2015 Comp Metabolic Plq385 Osmo 276 mOsmo 09/15/2015 Tsh Ord6 hTSH II 2.99 uIU/mL 09/15/2015 Vitamin D 25 Oh Dwu9133 VITAMIN D, 25 HYDROXY 30.19 ng/mL 09/15/2015 [...] Lipid Ord30 C/HDL 7.0 Ratio 09/15/2015 %Hba1C Eea934 % HbA1c 20855- 6 5.2 % 09/15/2015 %Hba1C Brs736 Gluc Ave 103 mg/dL 09/15/2015 Review of Systems System Result Effective Dates Constitutional recent illness 12/22/2018 Constitutional No anorexia [...] Formatting Model/CDA Sections, Assigned to/Margarita Brock CPT-4: [id number] 07/27/2018 FLU VAC NO PRSV 4 SHANNON 3 YRS+ CPT-4: 48101 08/04/2017 ADMIN INFLUENZA VIRUS VAC CPT-4: G0008 08/04/2017 TRIAMCINOLONE ACET INJ NOS CPT-4: J3301 01/27/2017 THER/PROPH/DIAG INJ SC/IM CPT-4: 19905 01/27/2017 ADMIN INFLUENZA VIRUS VAC CPT-4: G0008 07/15/2016 FLU VACC 4 SHANNON 3 YRS PLUS IM SNOMED CT: [id number] CPT-4: 45067 07/15/2016 Vital Signs Date Vital 12/22/2018 Blood Pressure 1: 140/74 Code: 8480-6 Heart Rate 1: 59 bpm Height: 5'4" SpO2: 99% Weight: 12/19/2018 Blood Pressure 1: 128/78 Code: 8480-6 Heart Rate 1: 96 bpm Height: 5'4" SpO2: 97% Weight: 10/26/2018 Blood Pressure 1: 132/76 Code: 8480-6 BMI: 34.5 Code: 36391-6 Heart Rate 1: 55 bpm Height: 5'4" SpO2: 99% Weight: 204 lbs 07/20/2018 Blood Pressure 1: 116/74 Code: 8480-6 BMI: 34.5 Code: 18458-9 Heart Rate 1: 52 bpm Height: 5'4" SpO2: 99% Weight: 204 lbs 04/14/2018 Blood Pressure 1: 128/76 Code: 8480-6 BMI: 34.5 Code: 32657-9 Heart Rate 1: 67 bpm Height: 5'4" SpO2: 95% Weight: 204 lbs 02/06/2018 Blood Pressure 1: 142/78 Code: 8480-6 BMI: 35.2 Code: 37534-1 Heart Rate 1: 58 bpm Height: 5'4" SpO2: 98% Weight: 208 lbs 01/12/2018 Blood Pressure 1: 132/82 Code: 8480-6 BMI: 34.8 Code: 24565-9 Height: 5'4" Weight: 206 lbs 08/04/2017 Blood Pressure 1: 140/82 Code: 8480-6 BMI: 31.9 Code: 17818-6 Heart Rate 1: 58 bpm Height: 5'4" SpO2: 99% Weight: 188 lbs 8 oz 07/19/2017 Blood Pressure 1: 136/76 Code: 8480-6 BMI: 32.0 Code: 06559-3 Heart Rate 1: 67 bpm Height: 5'4" SpO2: 97% Weight: 189 lbs 8 oz 05/05/2017 Blood Pressure 1: 142/80 Code: 8480-6 BMI: 32.4 Code: 73720-6 Heart Rate 1: 54 bpm Height: 5'4" SpO2: 98% Weight: 191 lbs 8 oz 01/27/2017 Blood Pressure 1: 132/82 Code: 8480-6 BMI: 34.1 Code: 88603-2 Heart Rate 1: 55 bpm Height: 5'4" SpO2: 99% Weight: 202 lbs 07/15/2016 Blood Pressure 1: 128/72 Code: 8480-6 BMI: 34.4 Code: 77084-4 Heart Rate 1: 50 bpm Height: 5'4" SpO2: 98% Weight: 203 lbs 8 oz 03/16/2016 Blood Pressure 1: 118/78 Code: 8480-6 BMI: 34.5 Code: 55097-1 Heart Rate 1: 55 bpm Height: 5'4" SpO2: 98% Weight: 204 lbs 09/15/2015 Blood Pressure 1: 134/72 Code: 8480-6 BMI: 34.6 Code: 76072-6 Heart Rate 1: 52 bpm Height: 5'4" SpO2: 99% Weight: 205 lbs 03/17/2015 Blood Pressure 1: 128/74 Code: 8480-6 BMI: 35.8 Code: 91628-8 Heart Rate 1: 59 bpm Height: 5'4" SpO2: 98% Weight: 212 lbs Functional Status No Functional Status data History of Present Illness Symptom Name Status Result Effective Date Notes Quality feelings of unsteadiness 12/22/2018 None Quality [...] data Encounters Encounter Performer Location Codes Date ([id number]) Miscellaneous no charge Diagnosis: Paroxysmal atrial fibrillation[ICD10: I48.0] Delmis Bermudez MD, [facility] CPT-4: 30272 12/22/2018 [id number]) 41732 EST. PATIENT, LEVEL IV Diagnosis: Paroxysmal atrial fibrillation[ICD10: I48.0] Diagnosis: Hypothyroidism, unspecified[ICD10: E03.9] Diagnosis: Essential (primary) hypertension[ICD10: I10] [facility] CPT-4: 34033 12/19/2018 [id number]) 37285 EST. PATIENT, LEVEL IV Diagnosis: Essential (primary) hypertension[ICD10: I10] Diagnosis: Type 2 diabetes mellitus with diabetic polyneuropathy[ICD10: E11.42] Diagnosis: Hypothyroidism, unspecified[ICD10: E03.9] Diagnosis: Mixed hyperlipidemia[ICD10: E78.2] Diagnosis: Lumbago with sciatica, right side[ICD10: M54.41] [facility] CPT-4: 69141 10/26/2018 ([id number]) 97291 EST. PATIENT, LEVEL IV Diagnosis: Type 2 diabetes mellitus with diabetic polyneuropathy[ICD10: E11.42] Diagnosis: Mixed hyperlipidemia[ICD10: E78.2] Diagnosis: Essential (primary) hypertension[ICD10: I10] Diagnosis: Vitamin D deficiency, unspecified[ICD10: E55.9] Diagnosis: Hypothyroidism, unspecified[ICD10: E03.9] Delmis Bermudez MD, [facility] CPT-4: 87602 07/20/2018 ([id number]) 25487 EST. PATIENT, LEVEL IV Diagnosis: Essential (primary) hypertension[ICD10: I10] Diagnosis: Hypothyroidism, unspecified[ICD10: E03.9] Diagnosis: Mixed hyperlipidemia[ICD10: E78.2] Delmis Bermudez MD, [facility] CPT- 4: 25968 04/14/2018 ([id number]) 58088 EST. PATIENT, LEVEL III Diagnosis: Type 2 diabetes mellitus with diabetic polyneuropathy[ICD10: E11.42] Delmis Bermudez MD, [facility] CPT-4: 86699 02/06/2018 ([id number]) 89350 EST. PATIENT, LEVEL IV Diagnosis: Mixed hyperlipidemia[ICD10: E78.2] Diagnosis: Hypothyroidism, unspecified[ICD10: E03.9] Diagnosis: Type 2 diabetes mellitus without complications[ICD10: E11.9] Delmis Bermudez MD, [facility] CPT-4: 43544 01/12/2018 ([id number]) 02159 EST. PATIENT, LEVEL IV Diagnosis: Essential (primary) hypertension[ICD10: I10] Diagnosis: Mixed hyperlipidemia[ICD10: E78.2] Diagnosis: Hypothyroidism, unspecified[ICD10: E03.9] Diagnosis: Type 2 diabetes mellitus without complications[ICD10: E11.9] Diagnosis: Encounter for immunization[ICD10: Z23] Delmis Bermudez MD, [facility] CPT-4: 45847 08/04/2017 ([id number]) 86551 EST. PATIENT, LEVEL III Diagnosis: Diverticulitis of large intestine without perforation or abscess without bleeding[ICD10: K57.32] Delmis Bermudez MD, [facility] CPT-4: 92146 07/19/2017 ([id number]) 18888 EST. PATIENT, LEVEL III Diagnosis: Type 2 diabetes mellitus with diabetic polyneuropathy[ICD10: E11.42] Delmis Bermudez MD [facility] CPT-4: 83353 05/05/2017 ([id number]) 00640 EST. PATIENT, LEVEL IV Diagnosis: Essential (primary) hypertension[ICD10: I10] Diagnosis: Type 2 diabetes mellitus without complications[ICD10: E11.9] Diagnosis: Mixed hyperlipidemia[ICD10: E78.2] Diagnosis: Allergic rhinitis due to pollen[ICD10: J30.1] Ria Bermudez MD [facility] CPT-4: 15174 01/27/2017 ([id number]) 82422 EST. PATIENT, LEVEL IV Diagnosis: Type 2 diabetes mellitus without complications[ICD10: E11.9] Diagnosis: Essential (primary) hypertension[ICD10: I10] Diagnosis: Mixed hyperlipidemia[ICD10: E78.2] Ria Bermudez MD [facility] CPT- 4: 52352 07/15/2016 ([id number]) 04746 EST. PATIENT, LEVEL IV Diagnosis: Type 2 diabetes mellitus without complications[ICD10: E11.9] Diagnosis: Polyneuropathy, unspecified[ICD10: G62.9] Diagnosis: Mixed hyperlipidemia[ICD10: E78.2] Ria Bermudez MD [facility] CPT- 4: 07352 03/16/2016 ([id number]) 33836 EST. PATIENT, LEVEL IV Diagnosis: Type 2 diabetes mellitus without complications[ICD10: E11.9] Diagnosis: Essential (primary) hypertension[ICD10: I10] Diagnosis: Vitamin D deficiency, unspecified[ICD10: E55.9] Diagnosis: Mixed hyperlipidemia[ICD10: E78.2] Ria Bermudez MD, [facility] CPT- 4: 22312 09/15/2015 ([id number]) OFFICE VISIT, NEW - LEVEL 4 Diagnosis: ESSENTIAL HYPERTENSION[ICD9: 401.9] Diagnosis: Diabetes mellitus type 2, controlled[ICD9: 250.00] Diagnosis: Peripheral neuropathy[ICD9: 356.9] Delmis Bermudez MD, [facility] CPT- 4: 29428 03/17/2015 Plan of Care Planned Activity Notes Codes Status Date Referral: Lindsey Poole She needs to arrive 15 minutes early. Patient informed. Completed 01/04/2019 Visit Plan: Afib -patient is doing MUCH better -heart sounds regular today -shortness of breath, dizziness and nausea have resolved - continue same meds and follow up with devops architect as scheduled. Patient irineo lized understanding of plan. 12/22/2018 Appointment: Delmis Her WPtel: [address] [place] [phone] (30 min) Complex 12/22/2018 Patient Education: Patient [...] verbalized understanding of plan. Hypothyroidism-check labs today JOH-phbssipvak-zzfywjct to monitor 12/19/2018 Visit Plan: Atrial Fibrillation -new onset-Dr Bermudez in to evaluate patient- will start patient on cardizem cd and eliquis -get EKG and labs today- schedule echo and refer to cardiology-instructed patient and her to go to ER if symptoms worsen or do not improve -patient and verbalized understanding of plan. Hypothyroidism-check labs today UHC-juqxdcnuwb-abqwijcf to monitor 12/19/2018 Visit Plan: Atrial Fibrillation -new onset-Dr Bermudez in to evaluate patient- will start patient on cardizem cd and eliquis -get EKG and labs today- schedule echo and refer to cardiology-instructed patient and her to go to ER if symptoms worsen or do not improve -patient and verbalized understanding of plan. Hypothyroidism-check labs today UHA-xnsilvdrhr-fqylcblc to monitor 12/19/2018 Appointment: Delmis Her WPtel: [address] [place], [place] [phone] (30 min) Complex 12/19/2018 Patient Education: Patient Medication Summary Completed 12/19/2018 Patient Education: Eliquis - 18+ - No HI MA NE Completed 12/19/2018 Care Plan: Cbc With Differential Pending 12/19/2018 Care Plan: Comp Metabolic Pending 12/19/2018 Care Plan: Tsh Pending 12/19/2018 Care Plan: Free T4 Pending 12/19/2018 Care Plan: Referral Order SNOMED-CT : [id number] Pending 12/19/2018 Visit Plan: Hypertension - well [...] they worsen. 10/26/2018 Appointment: [phone] ([facility] min) Moderate 10/26/2018 Patient Education: Patient [...] of control. 07/20/2018 Appointment: Delmis Her WPtel: [address] [place], [place] [phone] (15 min) Moderate 07/20/2018 Patient Education: Patient [...] start it 04/14/2018 Appointment: [facility]el[facility] [phone] [phone] (15 min) Moderate 04/14/2018 Patient Education: Patient Medication Summary Completed 04/14/2018 Visit Plan: Diabetic peripheral neuropathy -paperwork for diabetic shoes completed today in the office and will fax to Dr Briscoe's office- Patient verbalized understanding of plan. 02/06/2018 Appointment: [facility]mis Her [facility]Ptel[facility] [phone] [phone] (15 min) Moderate 02/06/2018 Patient Education: Patient [...] of control. 01/12/2018 Appointment: [facility] [phone] [phone] (30 min) Complex 01/12/2018 Patient Education: Patient [...] based on previous levels of control. H julialipidemia - pt has been counseled about appropriate [...] to medications. 08/04/2017 Appointment: Delmis Her WPtel: [phone] (30 min) Complex 08/04/2017 Patient Education: Patient Medication Summary Completed 08/04/2017 Patient Education: Obesity Completed 08/04/2017 [facility] Plan: [facility] Pending 08/04/2017 Visit Plan: Diverticulitis - rx for antibiotic sent to pt's pharmacy - pt advised to avoid seeds, nuts, popcorn, or any other food which has been proven to upset the pt's stomach. Call if symptoms do not improve or if any worse and we will check labs and CT scan. Patient verbalized understanding of plan. 07/19/2017 Appointment: Delmis Her WPtel: [phone] (30 min) Complex 07/19/2017 Patient Education: Patient Medication Summary Completed 07/19/2017 Patient Education: Obesity Completed 07/19/2017 Visit Plan: Diabetic peripheral neuropathy - diabetes paperwork completed today in the office-patient does want to start medication-RX for gabapentin sent electronically and provided and instructed on use. Patient verbalized understanding of plan. 05/05/2017 Appointment: Delmis Her WPtel: [phone] (30 min) Complex 05/05/2017 Patient Education: Patient Medication Summary Completed 05/05/2017 Patient Education: Obesity Completed 05/05/2017 Appointment: Delmis Her WPtel: [phone] [phone] [place] [address] - Annual Wellness Visit 01/28/2017 Visit Plan: [...] kenalog 01/27/2017 Appointment: Ria Bermudez WPtel: [phone] [phone] (15 min) Moderate 01/27/2017 Patient Education: Patient Medication Summary Completed 01/27/2017 Patient Education: Obesity Completed 01/27/2017 Appointment: Ria Bermudez WPtel: [phone] [facility] (15 min) Moderate 01/11/2017 Visit Plan: [...] dications. 07/15/2016 Appointment: Ria Bermudez WPtel: [phone] [phone] (15 min) Moderate 07/15/2016 Patient Education: Patient [...] this time. 03/16/2016 Appointment: [facility] [phone] [facility] [place] (15 min) Moderate 03/16/2016 Patient Education: [...] are starting to become less controlled. Peripheral cfygflyoyb-IC-mvkzells foot exam today in the office and [...] are starting to become less controlled. Peripheral uwcsxziowx-NI-ojndiwxi foot exam today in the office and [...] are starting to become less controlled. Peripheral pxzoznnjrq-JX-uzzipfim foot exam today in the office and paperwork completed for diabetic shoes-see scanned document 03/17/2015 Appointment: [facility]ermudez [facility]Ptel[facility] [phone] [facility] [place] ([place] New Patient 03/17/2015 Patient Education: Patient Medication Summary Completed 03/17/2015 Patient Education: Hypertension Completed 03/17/2015 Referral: Lindsey Poole Referral Appointment Requested Instructions Comment . Afib -patient is doing MUCH better -heart sounds regular today -shortness of breath, dizziness and nausea have resolved -continue same meds and follow up with devops architect as scheduled. Patient verbalized understanding of plan. [...] are starting to become less controlled. Peripheral tzlvkdffmq-DW-htfwvzcc foot exam today in the office and [...] are starting to become less controlled. Peripheral yhopaczjgs-MR-hibucphp foot exam today in the office and [...] are starting to become less controlled. Peripheral knzozgokvd-JT-xelomfgt foot exam today in the office and [...] units daily. Allergies - shot of kenalog CARDIZEM CD 120MG DAILY ELIQUIS 5MG TWICE DAILY -SAMPLES PROVIDED EKG AND LABS TODAY AT THE HOSPITAL ECHO -WE WILL SCHEDULE REFER TO MANAGER [employer]MENT -DR POOLE . Atrial Fibrillation -new onset-Dr Bermudez in to evaluate patient- will start patient on cardizem cd and eliquis -get EKG and labs today- schedule echo and refer to cardiology-instructed patient and her to go to ER if symptoms worsen or do not improve -patient and verbalized understanding of plan. Hypothyroidism-check labs today SVR-kerzryduek-rcpodygo to monitor CARDIZEM CD 120MG DAILY ELIQUIS 5MG TWICE DAILY -SAMPLES PROVIDED EKG AND LABS TODAY AT THE HOSPITAL ECHO -WE WILL SCHEDULE REFER TO MANAGER [employer]MENT -DR POOLE . Atrial Fibrillation -new onset-Dr Bermudez in to evaluate patient- will start patient on cardizem cd and eliquis -get EKG and labs today- schedule echo and refer to cardiology-instructed patient and her to go to ER if symptoms worsen or do not improve -patient and verbalized understanding of plan. Hypothyroidism-check labs today LRJ-snncanxctr-nafcihgy to monitor CARDIZEM CD 120MG DAILY ELIQUIS 5MG TWICE DAILY -SAMPLES PROVIDED EKG AND LABS TODAY AT THE HOSPITAL ECHO -WE WILL SCHEDULE REFER TO MANAGER [employer] -DR POOLE . Atrial Fibrillation -new onset-Dr Bermudez in to evaluate patient- will start patient on cardizem cd and eliquis -get EKG and labs today- schedule echo and refer to cardiology-instructed patient and her to go to ER if symptoms worsen or do not improve -patient and verbalized understanding of plan. Hypothyroidism-check labs today ERB-ydwwqyqlrw-sioccyvn to monitor check labs today . Hypertension [...]
--- OUTSIDE RECORDS SUMMARY | 2019-04-04 07:03 | XMS REPORT | CCD ---
Author Author Delmis Her Organization Ria Bermudez MD, [facility] Address [address] [place] [address] Phone Care Team Providers Care Marketing Effectiveness Manager Name Role Phone PP Unavailable CCM Unavailable Summary Purpose Interface Exchange Insurance Providers Payer name Policy type / Coverage type Covered constitution party ID Effective Begin Date Effective End Date WPS Medicare Part B Medicare Part B [id number] Unknown [facility] Medicare Part B [id number] Unknown Family history Son Diagnosis Age At [...] Unknown Retired 03/17/[address]: 887281358 Never smoker 03/17/[address]: 886588422 Never smoker 03/17/2015 Allergies, Adverse Reactions, Alerts Substance Reaction Codes Entered Date Inactivated Date Status * NO KNOWN FOOD ALLERGIES Unknown 03/17/2015 No Inactive Date Active ciprofloxacin RxNorm: 24525 03/17/2015 No Inactive Date Active Erythromycin RxNorm: 4053 03/17/2015 No Inactive Date Active Penicillin Unknown 03/17/2015 No Inactive Date Active XMIKWQB-TCT-EDC REDUCTASE INHIBITORS myalgias, Unknown 03/16/2016 No Inactive [...] Start Date Stop Date Status Fill Instructions Zetia 10 mg tablet RxNorm: 305760 1/2 Tablet(s) PO daily 12/19/2018 No Stop Date Active Cardizem CD 120 mg capsule,extended release RxNorm: 846279 1 Capsule(s) PO daily 12/19/2018 06/16/2019 Active Eliquis 5 mg tablet RxNorm: 5965368 1 Tablet(s) PO BID 12/19/2018 No Stop Date Active gabapentin 100 mg capsule RxNorm: 285197 TAKE ONE CAPSULE BY MOUTH EVERY NIGHT AT BEDTIME 12/11/2018 02/08/2019 Active levothyroxine 112 mcg tablet RxNorm: 317454 TAKE ONE TABLET BY MOUTH EVERY OTHER DAY ALTERNATE WITH 100MCG TABLET 12/07/2018 03/06/2019 Active Zetia 10 mg tablet RxNorm: 123141 1 Tablet(s) PO daily 10/26/2018 12/18/2018 Inactive Zetia 10 mg tablet RxNorm: 038339 1/2 Tablet(s) PO daily 07/20/2018 10/25/2018 Inactive indapamide 1.25 mg tablet RxNorm: 964077 Tablet(s) TAKE ONE TABLET BY MOUTH DAILY 07/19/2018 07/13/2019 Active levothyroxine 112 mcg tablet RxNorm: 159092 TAKE ONE TABLET BY MOUTH EVERY OTHER DAY ALTERNATE WITH 100MCG TABLET 07/19/2018 11/15/2018 Inactive gabapentin 100 mg capsule RxNorm: 673098 TAKE ONE CAPSULE BY MOUTH EVERY NIGHT AT BEDTIME 06/05/2018 09/02/2018 Inactive Zetia 10 mg tablet RxNorm: 951528 1 Tablet(s) PO daily 05/11/2018 07/19/2018 Inactive Zetia 10 mg tablet RxNorm: 810218 1 Tablet(s) PO daily 05/11/2018 05/10/2018 Inactive enalapril maleate 5 mg tablet RxNorm: 059050 TAKE ONE TABLET BY MOUTH DAILY 04/05/2018 12/30/2018 Active indapamide 1.25 mg tablet RxNorm: 478878 TAKE ONE TABLET BY MOUTH DAILY 04/05/2018 07/18/2018 Inactive levothyroxine 100 mcg tablet RxNorm: 947698 Tablet(s) TAKE ONE TABLET BY MOUTH EVERY OTHER DAY. ALTERNATE WITH 112 MCG TABLET. 01/24/2018 05/23/2018 Inactive levothyroxine 112 mcg tablet RxNorm: 669712 1 Tablet(s) PO every other day . ALTERNATE WITH 100 MCG TABLET. 01/24/2018 05/23/2018 Inactive Crestor 10 mg tablet RxNorm: 981915 1 Tablet(s) PO Q 01/24/2018 04/13/2018 Inactive Crestor 10 mg tablet RxNorm: 131588 1 Tablet(s) PO QHS 01/24/2018 01/23/2018 Inactive gabapentin 100 mg capsule RxNorm: 866320 TAKE ONE CAPSULE BY MOUTH EVERY NIGHT AT BEDTIME 01/05/2018 06/04/2018 Inactive indapamide 1.25 mg tablet RxNorm: 211196 TAKE ONE TABLET BY MOUTH DAILY 01/05/2018 04/04/2018 Inactive Zocor 20 mg tablet RxNorm: 481542 TAKE ONE TABLET BY MOUTH DAILY 12/02/2017 01/11/2018 Inactive Phenergan-Codeine 6.25 mg-10 mg/5 mL syrup RxNorm: 378089 5-10 Milliliter(s) PO Q6 as needed cough 11/09/2017 No Stop Date Active Tamiflu 75 mg capsule RxNorm: 546725 1 Capsule(s) PO BID 11/09/2017 11/13/2017 Inactive Tamiflu 75 mg capsule RxNorm: 835077 1 Capsule(s) PO BID 11/09/2017 11/08/2017 Inactive levothyroxine 100 mcg tablet RxNorm: 520351 TAKE ONE TABLET BY MOUTH DAILY 10/28/2017 01/23/2018 Inactive indapamide 1.25 mg tablet RxNorm: 683766 TAKE ONE TABLET BY MOUTH DAILY 09/09/2017 01/04/2018 Inactive levothyroxine 100 mcg tablet RxNorm: 500230 1 Tablet(s) PO daily TAKE ONE TABLET BY MOUTH DAILY 08/04/2017 10/27/2017 Inactive Flagyl 500 mg tablet RxNorm: 698524 1 Tablet(s) PO TID 07/19/2017 07/28/2017 Inactive enalapril maleate 5 mg tablet RxNorm: 889097 TAKE ONE TABLET BY MOUTH DAILY 06/30/2017 12/26/2017 Inactive indapamide 1.25 mg tablet RxNorm: 948632 TAKE ONE TABLET BY MOUTH DAILY 05/26/2017 09/08/2017 Inactive Zocor 20 mg tablet RxNorm: 351720 TAKE ONE TABLET BY MOUTH DAILY 05/26/2017 10/22/2017 Inactive gabapentin 100 mg capsule RxNorm: 811875 1 Capsule(s) PO QHS 05/05/2017 09/01/2017 Inactive Kenalog 40 mg/mL suspension for injection RxNorm: 2359281 1 Milliliter(s) Inj 01/27/2017 01/27/2017 Inactive levothyroxine 112 mcg tablet RxNorm: 603131 TAKE ONE TABLET BY MOUTH DAILY 01/17/2017 08/03/2017 Inactive Zocor 20 mg tablet RxNorm: 743010 TAKE ONE TABLET BY MOUTH DAILY 11/08/2016 05/06/2017 Inactive indapamide 1.25 mg tablet RxNorm: 004722 TAKE ONE TABLET BY MOUTH DAILY 11/08/2016 05/06/2017 Inactive enalapril maleate 5 mg tablet RxNorm: 014009 TAKE ONE TABLET BY MOUTH DAILY 09/01/2016 05/28/2017 Inactive indapamide 1.25 mg tablet RxNorm: 613482 TAKE ONE TABLET BY MOUTH DAILY 08/02/2016 10/30/2016 Inactive Vitamin D2 50,000 unit capsule RxNorm: 895930 1 Capsule(s) PO QW 07/15/2016 01/17/2018 Inactive indapamide 1.25 mg tablet RxNorm: 008862 TAKE ONE TABLET BY MOUTH DAILY 04/29/2016 07/27/2016 Inactive Vitamin D2 50,000 unit capsule RxNorm: 924754 1 Capsule(s) PO QW 03/16/2016 07/14/2016 Inactive Zocor 20 mg tablet RxNorm: 664506 1 Tablet(s) PO daily 03/16/2016 10/11/2016 Inactive levothyroxine 112 mcg tablet RxNorm: 007746 TAKE ONE TABLET BY MOUTH DAILY 01/07/2016 12/31/2016 Inactive indapamide 1.25 mg tablet RxNorm: 164165 1 Tablet(s) PO daily 12/03/2015 03/31/2016 Inactive Vitamin D2 50,000 unit capsule RxNorm: 596570 1 Capsule(s) PO QW 09/26/2015 09/25/2015 Inactive Lipitor 10 mg tablet RxNorm: 214603 1 Tablet(s) PO daily 09/26/2015 03/15/2016 Inactive Vitamin D2 50,000 unit capsule RxNorm: 481310 1 Capsule(s) PO QW 09/26/2015 03/15/2016 Inactive enalapril maleate 5 mg tablet RxNorm: 096860 1 Tablet(s) PO daily 08/06/2015 07/30/2016 Inactive levothyroxine 112 mcg tablet RxNorm: 638027 1 Tablet(s) PO daily 04/04/2015 10/30/2015 Inactive Vitamin D3 2,000 unit capsule RxNorm: 674286 1 Capsule(s) PO daily No Start Date Active aspirin 500 mg tablet RxNorm: 818035 1 Tablet(s) PO daily No Start Date Active Co Q-10 oral RxNorm: 96489 oral No Start Date Active Phenergan-Codeine 6.25 mg-10 mg/5 mL syrup RxNorm: 631548 5-10 Milliliter(s) PO Q6 as needed cough No Start Date 11/08/2017 Inactive Lipitor 20 mg tablet RxNorm: 324060 1 Tablet(s) PO daily No Start Date 09/14/2015 Inactive indapamide 1.25 mg tablet RxNorm: 591817 1 Tablet(s) PO daily No Start Date 12/02/2015 Inactive enalapril maleate 5 mg tablet RxNorm: 554623 1 Tablet(s) PO daily No Start Date 08/05/2015 Inactive levothyroxine 112 mcg tablet RxNorm: 624503 1 Tablet(s) PO daily No Start Date 04/03/2015 Inactive Medication Administered Medication Codes Instructions Start Date Status Kenalog 40 mg/mL suspension for injection RxNorm: 2910305 1Milliliter 01/27/2017 No longer Active Immunizations Vaccine [...] (3rd IS) 2.55 uIU/mL 10/27/2018 Free T4 Bws047 FREE T4 1.07 ng/dL 10/27/2018 Comp Metabolic Kks266 NA 138 mEq/L 10/26/2018 Comp Metabolic Tnl665 K 4.3 mEq/L 10/26/2018 Comp Metabolic Nut152 CL 102 mEq/L 10/26/2018 Comp Metabolic Rsj991 CO2 26.0 mEq/L 10/26/2018 Comp Metabolic Rvq112 ANION GAP 14 10/26/2018 Comp Metabolic Krq655 GLUCOSE 88 mg/dL 10/26/2018 Comp Metabolic Epi826 Creat 0.9 mg/dL 10/26/2018 Comp Metabolic Ubo722 eGFR 63 ml/min/1.73m2 10/26/2018 Comp Metabolic Juu780 BUN 25 mg/dL 10/26/2018 Comp Metabolic Rkt204 B/C Ratio 26.6 Ratio 10/26/2018 Comp Metabolic Fuj656 CALCIUM 10.1 mg/dL 10/26/2018 Comp Metabolic Nug017 ALK PHOS 77 U/L 10/26/2018 Comp Metabolic Qsp768 AST(SGOT) 16 U/L 10/26/2018 Comp Metabolic Nhz531 ALT(SGPT) 16 U/L 10/26/2018 Comp Metabolic Zxn497 BILI T 0.5 mg/dL 10/26/2018 Comp Metabolic Seq964 ALBUMIN 4.3 g/dL 10/26/2018 Comp Metabolic Vsv991 TPRO 6.8 g/dL 10/26/2018 Comp Metabolic Lua216 GLOB 2.5 g/dL 10/26/2018 Comp Metabolic Ogl427 A/G Ratio 1.7 Ratio 10/26/2018 Comp Metabolic Mpx246 Osmo 279 mOsmo 10/26/2018 %Hba1C Bqa469 % HbA1c 59660- 6 5.2 % 10/26/2018 %Hba1C Ukn629 Gluc Ave 103 mg/dL 10/26/2018 Cbc With [...] 29.1 pg 10/26/2018 Cbc With Differential Ord2 [place]% 9.6 % 10/26/2018 Cbc With Differential Ord2 [...] 1.94 K/ul 10/26/2018 Cbc With Differential Ord2 [place] ABS# 0.6 K/ul 10/26/2018 Cbc With Differential Ord2 Eos ABS# 0.1 K/ul 10/26/2018 Cbc With Differential Ord2 Baso ABS# 0.0 K/ul 10/26/2018 Lipid Ord30 CHOL 238 mg/dL 10/26/2018 Lipid Ord30 HDL 42.0 mg/dl 10/26/2018 Lipid Ord30 TRIG 270 mg/dL 10/26/2018 Lipid Ord30 LDL 142 mg/dL 10/26/2018 Lipid Ord30 C/HDL 5.7 Ratio 10/26/2018 %Hba1C Nbc258 % HbA1c 56845- 6 5.3 % 07/20/2018 %Hba1C Cbe469 Gluc Ave 105 mg/dL 07/20/2018 Comp Metabolic Xbz560 NA 139 mEq/L 07/20/2018 Comp Metabolic Cjh585 K 5.1 mEq/L 07/20/2018 Comp Metabolic Aiy521 CL 106 mEq/L 07/20/2018 Comp Metabolic Yvp634 CO2 19.0 mEq/L 07/20/2018 Comp Metabolic Dsk805 ANION GAP 19 07/20/2018 Comp Metabolic Ryz403 GLUCOSE 88 mg/dL 07/20/2018 Comp Metabolic Byu280 Creat 0.8 mg/dL 07/20/2018 Comp Metabolic Xub190 eGFR 77 ml/min/1.73m2 07/20/2018 Comp Metabolic Gwk323 BUN 25 mg/dL 07/20/2018 Comp Metabolic Sqk876 B/C Ratio 31.6 Ratio 07/20/2018 Comp Metabolic Ugg756 CALCIUM 10.0 mg/dL 07/20/2018 Comp Metabolic Lhq759 ALK PHOS 81 U/L 07/20/2018 Comp Metabolic Yrn190 AST(SGOT) 26 U/L 07/20/2018 Comp Metabolic Wpb733 ALT(SGPT) 16 U/L 07/20/2018 Comp Metabolic Fty128 BILI T 0.5 mg/dL 07/20/2018 Comp Metabolic Get685 ALBUMIN 4.5 g/dL 07/20/2018 Comp Metabolic Kyg245 TPRO 7.2 g/dL 07/20/2018 Comp Metabolic Txv357 GLOB 2.7 g/dL 07/20/2018 Comp Metabolic Tvy269 A/G Ratio 1.6 Ratio 07/20/2018 Comp Metabolic Ffv902 Osmo 281 mOsmo 07/20/2018 Free T4 Bse256 FREE T4 1.00 ng/dL 07/20/2018 Tsh Ord6 TSH (3rd IS) 2.05 uIU/mL 07/20/2018 Vitamin D 25 Oh Ecz3607 VITAMIN D, 25 HYDROXY 57.07 ng/mL 07/20/2018 Lipid Ord30 CHOL 242 mg/dL 07/20/2018 Lipid Ord30 HDL 43.0 mg/dl 07/20/2018 Lipid Ord30 TRIG 314 mg/dL 07/20/2018 Lipid Ord30 LDL 136 mg/dL 07/20/2018 Lipid Ord30 C/HDL 5.6 Ratio 07/20/2018 Free T4 Gfm512 FREE T4 1.24 ng/dL 04/14/2018 Tsh Ord6 TSH (3rd IS) 0.65 uIU/mL 04/14/2018 %Hba1C Wyh778 % HbA1c 79825- 6 5.1 % 01/12/2018 %Hba1C Vuy457 Gluc Ave 100 mg/dL 01/12/2018 Free T4 Aef440 FREE T4 0.97 ng/dL 01/12/2018 Lipid Ord30 [...] 29.7 pg 01/12/2018 Cbc With Differential Ord2 [place]% 10.3 % 01/12/2018 Cbc With Differential Ord2 [...] 2.40 K/ul 01/12/2018 Cbc With Differential Ord2 [place] ABS# 0.8 K/ul 01/12/2018 Cbc With Differential Ord2 Eos ABS# 0.2 K/ul 01/12/2018 Cbc With Differential Ord2 Baso ABS# 0.0 K/ul 01/12/2018 Comp Metabolic Jkz628 NA 138 mEq/L 01/12/2018 Comp Metabolic Yaz489 K 4.1 mEq/L 01/12/2018 Comp Metabolic Zaa810 CL 100 mEq/L 01/12/2018 Comp Metabolic Grk269 CO2 28.0 mEq/L 01/12/2018 Comp Metabolic Hqc944 ANION GAP 14 01/12/2018 Comp Metabolic Red870 GLUCOSE 84 mg/dL 01/12/2018 Comp Metabolic Kar103 Creat 0.8 mg/dL 01/12/2018 Comp Metabolic Yio173 eGFR 78 ml/min/1.73m2 01/12/2018 Comp Metabolic Oyd293 BUN 20 mg/dL 01/12/2018 Comp Metabolic Ecu676 B/C Ratio 25.6 Ratio 01/12/2018 Comp Metabolic Duf279 CALCIUM 9.6 mg/dL 01/12/2018 Comp Metabolic Umd874 ALK PHOS 76 U/L 01/12/2018 Comp Metabolic Pfp942 AST(SGOT) 16 U/L 01/12/2018 Comp Metabolic Uol289 ALT(SGPT) 16 U/L 01/12/2018 Comp Metabolic Apc898 BILI T 0.4 mg/dL 01/12/2018 Comp Metabolic Ext454 ALBUMIN 4.1 g/dL 01/12/2018 Comp Metabolic Mok537 TPRO 6.7 g/dL 01/12/2018 Comp Metabolic Xmd861 GLOB 2.6 g/dL 01/12/2018 Comp Metabolic Rfj465 A/G Ratio 1.6 Ratio 01/12/2018 Comp Metabolic Rnz135 Osmo 277 mOsmo 01/12/2018 Free T4 Cmv515 FREE T4 1.40 ng/dL 08/05/2017 %Hba1C Ifr553 % HbA1c 29492- 6 5.0 % 08/05/2017 %Hba1C Omr194 Gluc Ave 97 mg/dL 08/05/2017 Cbc With [...] 29.5 pg 08/03/2017 Cbc With Differential Ord2 [place]% 9.3 % 08/03/2017 Cbc With Differential Ord2 [...] 2.10 K/ul 08/03/2017 Cbc With Differential Ord2 [place] ABS# 0.7 K/ul 08/03/2017 Cbc With Differential Ord2 Eos ABS# 0.1 K/ul 08/03/2017 Cbc With Differential Ord2 Baso ABS# 0.0 K/ul 08/03/2017 Vitamin D 25 Oh Sxr3324 VITAMIN D, 25 HYDROXY 52.73 ng/mL 08/03/2017 Lipid Ord30 CHOL 215 mg/dL 08/03/2017 Lipid Ord30 HDL 43.0 mg/dl 08/03/2017 Lipid Ord30 TRIG 278 mg/dL 08/03/2017 Lipid Ord30 LDL 116 mg/dL 08/03/2017 Lipid Ord30 C/HDL 5.0 Ratio 08/03/2017 Tsh Ord6 hTSH II 0.09 uIU/mL 08/03/2017 Comp Metabolic Esc246 NA 137 mEq/L 08/03/2017 Comp Metabolic Upr608 K 4.3 mEq/L 08/03/2017 Comp Metabolic Lvt659 CL 102 mEq/L 08/03/2017 Comp Metabolic Igs958 CO2 24.0 mEq/L 08/03/2017 Comp Metabolic Exq792 ANION GAP 15 08/03/2017 Comp Metabolic Sdo444 GLUCOSE 80 mg/dL 08/03/2017 Comp Metabolic Mec032 Creat 0.9 mg/dL 08/03/2017 Comp Metabolic Tif202 eGFR 68 ml/min/1.73m2 08/03/2017 Comp Metabolic Oec313 BUN 18 mg/dL 08/03/2017 Comp Metabolic Nsr440 B/C Ratio 20.5 Ratio 08/03/2017 Comp Metabolic Vjy727 CALCIUM 9.7 mg/dL 08/03/2017 Comp Metabolic Rjy693 ALK PHOS 68 U/L 08/03/2017 Comp Metabolic Mdl804 AST(SGOT) 14 U/L 08/03/2017 Comp Metabolic Ayj253 ALT(SGPT) 14 U/L 08/03/2017 Comp Metabolic Ktd030 BILI T 0.6 mg/dL 08/03/2017 Comp Metabolic Vvc302 ALBUMIN 4.0 g/dL 08/03/2017 Comp Metabolic Lar579 TPRO 6.4 g/dL 08/03/2017 Comp Metabolic Png716 GLOB 2.4 g/dL 08/03/2017 Comp Metabolic Yjb076 A/G Ratio 1.7 Ratio 08/03/2017 Comp Metabolic Wub786 Osmo 275 mOsmo 08/03/2017 %Hba1C Mvs041 % HbA1c 92394- 6 5.1 % 01/06/2017 %Hba1C Jxo454 Gluc Ave 100 mg/dL 01/06/2017 Lipid Ord30 CHOL 223 mg/dL 01/06/2017 Lipid Ord30 HDL 44.0 mg/dl 01/06/2017 Lipid Ord30 TRIG 292 mg/dL 01/06/2017 Lipid Ord30 LDL 121 mg/dL 01/06/2017 Lipid Ord30 C/HDL 5.1 Ratio 01/06/2017 Tsh Ord6 hTSH II 0.99 uIU/mL 01/06/2017 Free T4 Okl606 FREE T4 0.96 ng/dL 01/06/2017 Cbc With [...] 29.6 pg 01/06/2017 Cbc With Differential Ord2 [place]% 9.2 % 01/06/2017 Cbc With Differential Ord2 [...] 1.85 K/ul 01/06/2017 Cbc With Differential Ord2 [place] ABS# 0.6 K/ul 01/06/2017 Cbc With Differential Ord2 Eos ABS# 0.1 K/ul 01/06/2017 Cbc With Differential Ord2 Baso ABS# 0.0 K/ul 01/06/2017 Vitamin D 25 Oh Dkj9094 VITAMIN D, 25 HYDROXY 35.10 ng/mL 01/06/2017 Comp Metabolic Wkd510 NA 140 mEq/L 01/06/2017 Comp Metabolic Gxd098 K 4.3 mEq/L 01/06/2017 Comp Metabolic Xgg773 CL 103 mEq/L 01/06/2017 Comp Metabolic Wjl405 CO2 29.0 mEq/L 01/06/2017 Comp Metabolic Mpf089 ANION GAP 12 01/06/2017 Comp Metabolic Wzi378 GLUCOSE 86 mg/dL 01/06/2017 Comp Metabolic Hsn829 Creat 0.8 mg/dL 01/06/2017 Comp Metabolic Mua324 eGFR 82 ml/min/1.73m2 01/06/2017 Comp Metabolic Bli250 BUN 19 mg/dL 01/06/2017 Comp Metabolic Xwv012 B/C Ratio 25.3 Ratio 01/06/2017 Comp Metabolic Pvy019 CALCIUM 9.6 mg/dL 01/06/2017 Comp Metabolic Nvi546 ALK PHOS 77 U/L 01/06/2017 Comp Metabolic Ykj573 AST(SGOT) 16 U/L 01/06/2017 Comp Metabolic Htk058 ALT(SGPT) 18 U/L 01/06/2017 Comp Metabolic Rxz365 BILI T 0.4 mg/dL 01/06/2017 Comp Metabolic Ftm988 ALBUMIN 4.1 g/dL 01/06/2017 Comp Metabolic Mlp739 TPRO 6.7 g/dL 01/06/2017 Comp Metabolic Zah278 GLOB 2.6 g/dL 01/06/2017 Comp Metabolic Bst485 A/G Ratio 1.6 Ratio 01/06/2017 Comp Metabolic Dhd287 Osmo 281 mOsmo 01/06/2017 Vitamin D 25 Oh Alq9260 VITAMIN D, 25 HYDROXY 42.77 ng/mL 07/09/2016 Free T4 Xet874 FREE T4 1.23 ng/dL 07/08/2016 Comp Metabolic Mzy741 NA 136 mEq/L 07/08/2016 Comp Metabolic Rmz259 K 4.1 mEq/L 07/08/2016 Comp Metabolic Ecv685 CL 103 mEq/L 07/08/2016 Comp Metabolic Ygu736 CO2 26.0 mEq/L 07/08/2016 Comp Metabolic Tag711 ANION GAP 11 07/08/2016 Comp Metabolic Erk570 GLUCOSE 83 mg/dL 07/08/2016 Comp Metabolic Owm019 Creat 0.8 mg/dL 07/08/2016 Comp Metabolic Qxx580 eGFR 80 ml/min/1.73m2 07/08/2016 Comp Metabolic Nrc229 BUN 22 mg/dL 07/08/2016 Comp Metabolic Kxy735 B/C Ratio 28.9 Ratio 07/08/2016 Comp Metabolic Ljh003 CALCIUM 9.8 mg/dL 07/08/2016 Comp Metabolic Yyi894 ALK PHOS 75 U/L 07/08/2016 Comp Metabolic Jvn153 AST(SGOT) 14 U/L 07/08/2016 Comp Metabolic Axt744 ALT(SGPT) 15 U/L 07/08/2016 Comp Metabolic Xdn971 BILI T 0.4 mg/dL 07/08/2016 Comp Metabolic Hcb607 ALBUMIN 4.1 g/dL 07/08/2016 Comp Metabolic Brj302 TPRO 6.6 g/dL 07/08/2016 Comp Metabolic Kwb724 GLOB 2.5 g/dL 07/08/2016 Comp Metabolic Bwr672 A/G Ratio 1.7 Ratio 07/08/2016 Comp Metabolic Hnn764 Osmo 274 mOsmo 07/08/2016 %Hba1C Wjb748 % HbA1c 75493- 6 5.4 % 07/08/2016 %Hba1C Bgm686 Gluc Ave 108 mg/dL 07/08/2016 Cbc With [...] 29.8 pg 07/08/2016 Cbc With Differential Ord2 [place]% 10.1 % 07/08/2016 Cbc With Differential Ord2 [...] 1.89 K/ul 07/08/2016 Cbc With Differential Ord2 [place] ABS# 0.7 K/ul 07/08/2016 Cbc With Differential Ord2 Eos ABS# 0.2 K/ul 07/08/2016 Cbc With Differential Ord2 Baso ABS# 0.0 K/ul 07/08/2016 Tsh Ord6 hTSH II 0.21 uIU/mL 07/08/2016 Lipid Ord30 CHOL 210 mg/dL 07/08/2016 Lipid Ord30 HDL 41.0 mg/dl 07/08/2016 Lipid Ord30 TRIG 257 mg/dL 07/08/2016 Lipid Ord30 LDL 118 mg/dL 07/08/2016 Lipid Ord30 C/HDL 5.1 Ratio 07/08/2016 Vitamin D 25 Oh Fzt0730 VITAMIN D, 25 HYDROXY 34.38 ng/mL 03/10/2016 %Hba1C Fqc942 % HbA1c 45263- 6 5.3 % 03/09/2016 %Hba1C Lar342 Gluc Ave 105 mg/dL 03/09/2016 Comp Metabolic Gwt867 NA 137 mEq/L 03/09/2016 Comp Metabolic Wju110 K 4.5 mEq/L 03/09/2016 Comp Metabolic Ljy475 CL 104 mEq/L 03/09/2016 Comp Metabolic Wqe701 CO2 27.0 mEq/L 03/09/2016 Comp Metabolic Xhl554 ANION GAP 11 03/09/2016 Comp Metabolic Oea501 GLUCOSE 86 mg/dL 03/09/2016 Comp Metabolic Qpt554 Creat 0.8 mg/dL 03/09/2016 Comp Metabolic Lpx295 eGFR 81 ml/min/1.73m2 03/09/2016 Comp Metabolic Ziz490 BUN 23 mg/dL 03/09/2016 Comp Metabolic Fxx812 B/C Ratio 30.3 Ratio 03/09/2016 Comp Metabolic Pfm569 CALCIUM 9.4 mg/dL 03/09/2016 Comp Metabolic Elr452 ALK PHOS 69 U/L 03/09/2016 Comp Metabolic Vdj190 AST(SGOT) 14 U/L 03/09/2016 Comp Metabolic Mxh121 ALT(SGPT) 14 U/L 03/09/2016 Comp Metabolic Qwl572 BILI T 0.4 mg/dL 03/09/2016 Comp Metabolic Rbl292 ALBUMIN 4.1 g/dL 03/09/2016 Comp Metabolic Kau297 TPRO 6.6 g/dL 03/09/2016 Comp Metabolic Sxy447 GLOB 2.5 g/dL 03/09/2016 Comp Metabolic Jhw613 A/G Ratio 1.6 Ratio 03/09/2016 Comp Metabolic Qbg605 Osmo 277 mOsmo 03/09/2016 Tsh Ord6 hTSH [...] 28.9 pg 03/09/2016 Cbc With Differential Ord2 [place]% 11.1 % 03/09/2016 Cbc With Differential Ord2 [...] 2.16 K/ul 03/09/2016 Cbc With Differential Ord2 [place] ABS# 0.9 K/ul 03/09/2016 Cbc With Differential Ord2 Eos ABS# 0.1 K/ul 03/09/2016 Cbc With Differential Ord2 Baso ABS# 0.0 K/ul 03/09/2016 Lipid Ord30 CHOL 283 mg/dL 03/09/2016 Lipid Ord30 HDL 40.0 mg/dl 03/09/2016 Lipid Ord30 TRIG 271 mg/dL 03/09/2016 Lipid Ord30 LDL 189 mg/dL 03/09/2016 Lipid Ord30 C/HDL 7.1 Ratio 03/09/2016 Comp Metabolic Tsl582 NA 137 mEq/L 09/15/2015 Comp Metabolic Qld836 K 4.4 mEq/L 09/15/2015 Comp Metabolic Ago162 CL 101 mEq/L 09/15/2015 Comp Metabolic Mym767 CO2 28.0 mEq/L 09/15/2015 Comp Metabolic Xpr938 ANION GAP 12 09/15/2015 Comp Metabolic Jej935 GLUCOSE 89 mg/dL 09/15/2015 Comp Metabolic Ayf948 Creat 0.8 mg/dL 09/15/2015 Comp Metabolic Uom433 eGFR 73 ml/min/1.73m2 09/15/2015 Comp Metabolic Uva076 BUN 20 mg/dL 09/15/2015 Comp Metabolic Pjn331 B/C Ratio 24.1 Ratio 09/15/2015 Comp Metabolic Vrg149 CALCIUM 10.1 mg/dL 09/15/2015 Comp Metabolic Xqr989 ALK PHOS 72 U/L 09/15/2015 Comp Metabolic Xly444 AST(SGOT) 16 U/L 09/15/2015 Comp Metabolic Xcy382 ALT(SGPT) 15 U/L 09/15/2015 Comp Metabolic Ngs991 BILI T 0.5 mg/dL 09/15/2015 Comp Metabolic Nma555 ALBUMIN 4.4 g/dL 09/15/2015 Comp Metabolic Uoo800 TPRO 7.0 g/dL 09/15/2015 Comp Metabolic Irr763 GLOB 2.6 g/dL 09/15/2015 Comp Metabolic Bpl607 A/G Ratio 1.7 Ratio 09/15/2015 Comp Metabolic Fqx206 Osmo 276 mOsmo 09/15/2015 Tsh Ord6 hTSH II 2.99 uIU/mL 09/15/2015 Vitamin D 25 Oh Rfp9205 VITAMIN D, 25 HYDROXY 30.19 ng/mL 09/15/2015 [...] Lipid Ord30 C/HDL 7.0 Ratio 09/15/2015 %Hba1C Xxm954 % HbA1c 85415- 6 5.2 % 09/15/2015 %Hba1C Snd720 Gluc Ave 103 mg/dL 09/15/2015 Review of [...] accomodation 10/26/2018 None Full Exam - General 1995 Ears/Nose/Throat otoscopic exam Overall: external auditory canals [...] Formatting Model/CDA Sections, Assigned to/Margarita Brock CPT-4: [id number] 07/27/2018 FLU VAC NO PRSV 4 SHANNON 3 YRS+ CPT-4: 79181 08/04/2017 ADMIN INFLUENZA VIRUS VAC CPT-4: G0008 08/04/2017 TRIAMCINOLONE ACET INJ NOS CPT-4: J3301 01/27/2017 THER/PROPH/DIAG INJ SC/IM CPT-4: 58837 01/27/2017 ADMIN INFLUENZA VIRUS VAC CPT-4: G0008 07/15/2016 FLU VACC 4 SHANNON 3 YRS PLUS IM SNOMED CT: [id number] CPT-4: 70701 07/15/2016 Vital Signs Date Vital 12/22/2018 Blood Pressure 1: 140/74 Code: 8480-6 Heart Rate 1: 59 bpm Height: 5'4" SpO2: 99% Weight: 12/19/2018 Blood Pressure 1: 128/78 Code: 8480-6 Heart Rate 1: 96 bpm Height: 5'4" SpO2: 97% Weight: 10/26/2018 Blood Pressure 1: 132/76 Code: 8480-6 BMI: 34.5 Code: 35206-9 Heart Rate 1: 55 bpm Height: 5'4" SpO2: 99% Weight: 204 lbs 07/20/2018 Blood Pressure 1: 116/74 Code: 8480-6 BMI: 34.5 Code: 75629-3 Heart Rate 1: 52 bpm Height: 5'4" SpO2: 99% Weight: 204 lbs 04/14/2018 Blood Pressure 1: 128/76 Code: 8480-6 BMI: 34.5 Code: 02993-3 Heart Rate 1: 67 bpm Height: 5'4" SpO2: 95% Weight: 204 lbs 02/06/2018 Blood Pressure 1: 142/78 Code: 8480-6 BMI: 35.2 Code: 42994-7 Heart Rate 1: 58 bpm Height: 5'4" SpO2: 98% Weight: 208 lbs 01/12/2018 Blood Pressure 1: 132/82 Code: 8480-6 BMI: 34.8 Code: 66238-2 Height: 5'4" Weight: 206 lbs 08/04/2017 Blood Pressure 1: 140/82 Code: 8480-6 BMI: 31.9 Code: 10939-2 Heart Rate 1: 58 bpm Height: 5'4" SpO2: 99% Weight: 188 lbs 8 oz 07/19/2017 Blood Pressure 1: 136/76 Code: 8480-6 BMI: 32.0 Code: 16535-5 Heart Rate 1: 67 bpm Height: 5'4" SpO2: 97% Weight: 189 lbs 8 oz 05/05/2017 Blood Pressure 1: 142/80 Code: 8480-6 BMI: 32.4 Code: 85452-2 Heart Rate 1: 54 bpm Height: 5'4" SpO2: 98% Weight: 191 lbs 8 oz 01/27/2017 Blood Pressure 1: 132/82 Code: 8480-6 BMI: 34.1 Code: 83689-9 Heart Rate 1: 55 bpm Height: 5'4" SpO2: 99% Weight: 202 lbs 07/15/2016 Blood Pressure 1: 128/72 Code: 8480-6 BMI: 34.4 Code: 80556-0 Heart Rate 1: 50 bpm Height: 5'4" SpO2: 98% Weight: 203 lbs 8 oz 03/16/2016 Blood Pressure 1: 118/78 Code: 8480-6 BMI: 34.5 Code: 52711-6 Heart Rate 1: 55 bpm Height: 5'4" SpO2: 98% Weight: 204 lbs 09/15/2015 Blood Pressure 1: 134/72 Code: 8480-6 BMI: 34.6 Code: 22442-0 Heart Rate 1: 52 bpm Height: 5'4" SpO2: 99% Weight: 205 lbs 03/17/2015 Blood Pressure 1: 128/74 Code: 8480-6 BMI: 35.8 Code: 30218-3 Heart Rate 1: 59 bpm Height: 5'4" [...] data Encounters Encounter Performer Location Codes Date ([id number]) Miscellaneous no charge Diagnosis: Paroxysmal atrial fibrillation[ICD10: I48.0] Delmsi Bermuedz MD, [facility] CPT-4: 53251 12/22/2018 ([id number]) [id number] EST. PATIENT, LEVEL IV Diagnosis: Paroxysmal atrial fibrillation[ICD10: I48.0] Diagnosis: Hypothyroidism, unspecified[ICD10: E03.9] Diagnosis: Essential (primary) hypertension[ICD10: I10] Ria Bermudez MD, [facility] CPT-4: 45229 12/19/2018 ([id number]) [id number] EST. PATIENT, LEVEL IV Diagnosis: Essential (primary) hypertension[ICD10: I10] Diagnosis: Type 2 diabetes mellitus with diabetic polyneuropathy[ICD10: E11.42] Diagnosis: Hypothyroidism, unspecified[ICD10: E03.9] Diagnosis: Mixed hyperlipidemia[ICD10: E78.2] Diagnosis: Lumbago with sciatica, right side[ICD10: M54.41] Delmis Bermudez MD, [facility] CPT-4: 99525 10/26/2018 [id number]) [id number] EST. PATIENT, LEVEL IV Diagnosis: Type 2 diabetes mellitus with diabetic polyneuropathy[ICD10: E11.42] Diagnosis: Mixed hyperlipidemia[ICD10: E78.2] Diagnosis: Essential (primary) hypertension[ICD10: I10] Diagnosis: Vitamin D deficiency, unspecified[ICD10: E55.9] Diagnosis: Hypothyroidism, unspecified[ICD10: E03.9] Delmis Bermudez MD, [facility] CPT-4: 31793 07/20/2018 ([id number]) [id number] EST. PATIENT, LEVEL IV Diagnosis: Essential (primary) hypertension[ICD10: I10] Diagnosis: Hypothyroidism, unspecified[ICD10: E03.9] Diagnosis: Mixed hyperlipidemia[ICD10: E78.2] Delmis Bermudez MD, [facility] CPT- 4: 29083 04/14/2018 ([id number]) [id number] EST. PATIENT, LEVEL III Diagnosis: Type 2 diabetes mellitus with diabetic polyneuropathy[ICD10: E11.42] Delmis Bermudez MD, [facility] CPT-4: 75630 02/06/2018 ([id number]) 12287 EST. PATIENT, LEVEL IV Diagnosis: Mixed hyperlipidemia[ICD10: E78.2] Diagnosis: Hypothyroidism, unspecified[ICD10: E03.9] Diagnosis: Type 2 diabetes mellitus without complications[ICD10: E11.9] Delmis Bermudez MD, [facility] CPT-4: 07008 01/12/2018 ([id number]) 53508 EST. PATIENT, LEVEL IV Diagnosis: Essential (primary) hypertension[ICD10: I10] Diagnosis: Mixed hyperlipidemia[ICD10: E78.2] Diagnosis: Hypothyroidism, unspecified[ICD10: E03.9] Diagnosis: Type 2 diabetes mellitus without complications[ICD10: E11.9] Diagnosis: Encounter for immunization[ICD10: Z23] [facility] CPT-4: 01940 08/04/2017 ([id number]) 45215 EST. PATIENT, LEVEL III Diagnosis: Diverticulitis of large intestine without perforation or abscess without bleeding[ICD10: K57.32] Delmis Bermudez MD, [facility] CPT-4: 99312 07/19/2017 ([id number]) 13344 EST. PATIENT, LEVEL III Diagnosis: Type 2 diabetes mellitus with diabetic polyneuropathy[ICD10: E11.42] Delmis Bermudez MD, [facility] CPT-4: 04254 05/05/2017 ([id number]) 19678 EST. PATIENT, LEVEL IV Diagnosis: Essential (primary) hypertension[ICD10: I10] Diagnosis: Type 2 diabetes mellitus without complications[ICD10: E11.9] Diagnosis: Mixed hyperlipidemia[ICD10: E78.2] Diagnosis: Allergic rhinitis due to pollen[ICD10: J30.1] Ria Bermudez MD, [facility] CPT-4: 76710 01/27/2017 ([id number]) 87050 EST. PATIENT, LEVEL IV Diagnosis: Type 2 diabetes mellitus without complications[ICD10: E11.9] Diagnosis: Essential (primary) hypertension[ICD10: I10] Diagnosis: Mixed hyperlipidemia[ICD10: E78.2] Ria Bermudez MD, [facility] CPT- 4: 04367 07/15/2016 ([id number]) 50751 EST. PATIENT, LEVEL IV Diagnosis: Type 2 diabetes mellitus without complications[ICD10: E11.9] Diagnosis: Polyneuropathy, unspecified[ICD10: G62.9] Diagnosis: Mixed hyperlipidemia[ICD10: E78.2] Ria Bermudez MD, [facility] CPT- 4: 07580 03/16/2016 [id number]) 92469 EST. PATIENT, LEVEL IV Diagnosis: Type 2 diabetes mellitus without complications[ICD10: E11.9] Diagnosis: Essential (primary) hypertension[ICD10: I10] Diagnosis: Vitamin D deficiency, unspecified[ICD10: E55.9] Diagnosis: Mixed hyperlipidemia[ICD10: E78.2] Ria Bermudez MD, [facility] CPT- 4: 91983 09/15/2015 ([id number]) OFFICE VISIT, NEW - LEVEL 4 Diagnosis: ESSENTIAL HYPERTENSION[ICD9: 401.9] Diagnosis: Diabetes mellitus type 2, controlled[ICD9: 250.00] Diagnosis: Peripheral neuropathy[ICD9: 356.9] Delmis Bermudez MD, [facility] CPT- 4: 77468 03/17/2015 Plan of Care Planned Activity Notes Codes Status Date Referral: Lindsey Poole She needs to arrive 15 minutes early. Patient informed. Completed 01/04/2019 Visit Plan: Afib -patient is doing MUCH better -heart sounds regular today -shortness of breath, dizziness and nausea have resolved - continue same meds and follow up with reinsurance accountant as scheduled. Patient irineo legered understanding of plan. 12/22/2018 Appointment: Delmis Her WPtel: [phone] (30 min) Complex 12/22/2018 Patient Education: Patient [...] verbalized understanding of plan. Hypothyroidism-check labs today WVY-ngpcpuyvyv-umntawrl to monitor 12/19/2018 Visit Plan: Atrial Fibrillation -new onset-Dr Bermudez in to evaluate patient- will start patient on cardizem cd and eliquis -get EKG and labs today- schedule echo and refer to cardiology-instructed patient and her to go to ER if symptoms worsen or do not improve -patient and verbalized understanding of plan. Hypothyroidism-check labs today TKH-udgmairpzg-hmlnajjz to monitor 12/19/2018 Visit Plan: Atrial Fibrillation -new onset-Dr Bermudez in to evaluate patient- will start patient on cardizem cd and eliquis -get EKG and labs today- schedule echo and refer to cardiology-instructed patient and her to go to ER if symptoms worsen or do not improve -patient and verbalized understanding of plan. Hypothyroidism-check labs today XGR-yflpafhfzc-eyktfjok to monitor 12/19/2018 Appointment: Delmis Her WPtel: [phone] (30 min) Complex 12/19/2018 Patient Education: Patient Medication Summary Completed 12/19/2018 Patient Education: Adrian - 18+ - No MARIBELL GARZA Completed 12/19/2018 Care Plan: Cbc With Differential Pending 12/19/2018 Care Plan: Comp Metabolic Pending 12/19/2018 Care Plan: Tsh Pending 12/19/2018 Care Plan: Free T4 Pending 12/19/2018 Care Plan: Referral Order SNOMED-CT : [id number] Pending 12/19/2018 Visit Plan: Hypertension - well [...] they worsen. 10/26/2018 Appointment: Delmis Her WPtel: [address] [place], [place] [phone] (15 min) Moderate 10/26/2018 Patient Education: Patient [...] control. 07/20/2018 Appointment: Delmis Her WPtel: [phone] [phone] (15 min) Moderate 07/20/2018 Patient Education: Patient [...] it 04/14/2018 Appointment: Delmis Her WPtel: [phone] [phone] (15 min) Moderate 04/14/2018 Patient Education: Patient Medication Summary Completed 04/14/2018 Visit Plan: Diabetic peripheral neuropathy -paperwork for diabetic shoes completed today in the office and will fax to Dr Briscoe's office- Patient verbalized understanding of plan. 02/06/2018 Appointment: [facility] Her [facility]el[facility] [phone] [phone] (15 min) Moderate 02/06/2018 Patient [...] control. 01/12/2018 Appointment: Delmis Her [facility]Ptel[phone] [phone] (30 min) Complex 01/12/2018 Patient Education: Patient [...] to medications. 08/04/2017 Appointment: Delmis Her WPtel: [address] [place], [place] [phone] (30 min) Complex 08/04/2017 Patient Education: Patient Medication Summary Completed 08/04/2017 Patient Education: Obesity Completed 08/04/2017 Care Plan: %Hba1C LOINC : [id number] Pending 08/04/2017 Visit Plan: Diverticulitis - rx for antibiotic sent to pt's pharmacy - pt advised to avoid seeds, nuts, popcorn, or any other food which has been proven to upset the pt's stomach. Call if symptoms do not improve or if any worse and we will check labs and CT scan. Patient verbalized understanding of plan. 07/19/2017 Appointment: Delmis Her WPtel: [address] [place], [place] [phone] [place] [address] (30 min) Complex 07/19/2017 Patient Education: Patient Medication Summary Completed 07/19/2017 Patient Education: Obesity Completed 07/19/2017 Visit Plan: Diabetic peripheral neuropathy - diabetes paperwork completed today in the office-patient does want to start medication-RX for gabapentin sent electronically and provided and instructed on use. Patient verbalized understanding of plan. 05/05/2017 Appointment: Delmis Her WPtel: [address] [place], [place] [phone] (30 min) Complex 05/05/2017 Patient Education: Patient Medication Summary Completed 05/05/2017 Patient Education: Obesity Completed 05/05/2017 Appointment: Delmis Her WPtel: [address] [place], [place] [phone] [place] [address] - Annual Wellness Visit 01/28/2017 Visit Plan: [...] kenalog 01/27/2017 Appointment: Ria Bermudez WPtel: [phone] [phone] (15 min) Moderate 01/27/2017 Patient Education: Patient Medication Summary Completed 01/27/2017 Patient Education: Obesity Completed 01/27/2017 Appointment: Ria Bermudez WPtel: [facility] (15 min) Moderate 01/11/2017 Visit Plan: Hypertension [...] 07/15/2016 Appointment: [facility]ermudez [facility]Ptel[facility] [phone] [facility] (15 min) Moderate 07/15/2016 Patient Education: Patient [...] time. 03/16/2016 Appointment: [facility]ermude[phone] [facility] (15 min) Moderate 03/16/2016 Patient Education: Patient [...] are starting to become less controlled. Peripheral mbrbxhvvby-MX-ofmzylmp foot exam today in the office and [...] are starting to become less controlled. Peripheral asvrtjlvvr-TF-cbdcuiro foot exam today in the office and [...] are starting to become less controlled. Peripheral hegxhzebgg-WB-eztxtwir foot exam today in the office and paperwork completed for diabetic shoes-see scanned document 03/17/2015 Appointment: Ria Bermudez [facility]Ptel[facility] [phone] [facility] [place] [place] New Patient 03/17/2015 Patient Education: Patient Medication Summary Completed 03/17/2015 Patient Education: Hypertension Completed 03/17/2015 Referral: Lindsey Poole Referral Appointment Requested Instructions Comment . Afib -patient is doing MUCH better -heart sounds regular today -shortness of breath, dizziness and nausea have resolved -continue same meds and follow up with reinsurance accountant as scheduled. Patient verbalized understanding of plan. [...] are starting to become less controlled. Peripheral mujxpxfnup-DV-weurzmqj foot exam today in the office and [...] are starting to become less controlled. Peripheral ofxrgcmiaa-NG-zclhgewe foot exam today in the office and [...] are starting to become less controlled. Peripheral vfdycadtuc-IN-epbgdsnv foot exam today in the office and [...] HOSPITAL ECHO -WE WILL SCHEDULE REFER TO AIRPORT OPERATIONS COORDINATOR -DR POOLE . Atrial Fibrillation -new onset-Dr Bermudez in to evaluate patient- will start patient on cardizem cd and eliquis -get EKG and labs today- schedule echo and refer to cardiology-instructed patient and her to go to ER if symptoms worsen or do not improve -patient and verbalized understanding of plan. Hypothyroidism-check labs today USO-jnnjuyedtn-eozhdwdb to monitor CARDIZEM CD 120MG DAILY ELIQUIS 5MG TWICE DAILY -SAMPLES PROVIDED EKG AND LABS TODAY AT THE HOSPITAL ECHO -WE WILL SCHEDULE REFER TO AIRPORT OPERATIONS COORDINATOR -DR POOLE . Atrial Fibrillation -new onset-Dr Bermudez in to evaluate patient- will start patient on cardizem cd and eliquis -get EKG and labs today- schedule echo and refer to cardiology-instructed patient and her to go to ER if symptoms worsen or do not improve -patient and verbalized understanding of plan. Hypothyroidism-check labs today PXU-emdqacdfaf-ypaxhzil to monitor CARDIZEM CD 120MG DAILY ELIQUIS 5MG TWICE DAILY -SAMPLES PROVIDED EKG AND LABS TODAY AT THE HOSPITAL ECHO -WE WILL SCHEDULE REFER TO AIRPORT OPERATIONS COORDINATOR -DR POOLE . Atrial Fibrillation -new onset-Dr Bermudez in to evaluate patient- will start patient on cardizem cd and eliquis -get EKG and labs today- schedule echo and refer to cardiology-instructed patient and her to go to ER if symptoms worsen or do not improve -patient and verbalized understanding of plan. Hypothyroidism-check labs today LHD-jrltgakppe-zqmvnxds to monitor check labs today . Hypertension [...]
--- OUTSIDE RECORDS SUMMARY | 2019-04-04 07:06 | XMS REPORT | CCD ---
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 Name Role Phone PP Unavailable CCM Unavailable Summary Purpose Interface Exchange Insurance Providers Payer name Policy type / Coverage type Covered alliance party ID Effective Begin Date Effective End Date WPS Medicare Part B Medicare Part B [id number] Unknown [facility] Medicare Part B [id number] Unknown Family history Son Diagnosis Age At [...] Unknown Retired 03/17/[address]: 370727683 Never smoker 03/17/[address]: 226031815 Never smoker 03/17/2015 Allergies, Adverse Reactions, Alerts Substance Reaction Codes Entered Date Inactivated Date Status * NO KNOWN FOOD ALLERGIES Unknown 03/17/2015 No Inactive Date Active ciprofloxacin RxNorm: 25629 03/17/2015 No Inactive Date Active Erythromycin RxNorm: 4053 03/17/2015 No Inactive Date Active Penicillin Unknown 03/17/2015 No Inactive Date Active [id number] REDUCTASE INHIBITORS myalgias, Unknown 03/16/2016 No Inactive [...] Fill Instructions Zetia 10 mg tablet RxNorm: 444026 1/2 Tablet(s) PO daily 12/19/2018 No Stop Date Active Cardizem CD 120 mg capsule,extended release RxNorm: 039593 1 Capsule(s) PO daily 12/19/2018 06/16/2019 Active Eliquis 5 mg tablet RxNorm: 8282678 1 Tablet(s) PO BID 12/19/2018 No Stop Date Active gabapentin 100 mg capsule RxNorm: 997508 TAKE ONE CAPSULE BY MOUTH EVERY NIGHT AT BEDTIME 12/11/2018 02/08/2019 Active levothyroxine 112 mcg tablet RxNorm: 366802 TAKE ONE TABLET BY MOUTH EVERY OTHER DAY ALTERNATE WITH 100MCG TABLET 12/07/2018 03/06/2019 Active Zetia 10 mg tablet RxNorm: 481153 1 Tablet(s) PO daily 10/26/2018 12/18/2018 Inactive Zetia 10 mg tablet RxNorm: 425521 1/2 Tablet(s) PO daily 07/20/2018 10/25/2018 Inactive indapamide 1.25 mg tablet RxNorm: 974821 Tablet(s) TAKE ONE TABLET BY MOUTH DAILY 07/19/2018 07/13/2019 Active levothyroxine 112 mcg tablet RxNorm: 190597 TAKE ONE TABLET BY MOUTH EVERY OTHER DAY ALTERNATE WITH 100MCG TABLET 07/19/2018 11/15/2018 Inactive gabapentin 100 mg capsule RxNorm: 637992 TAKE ONE CAPSULE BY MOUTH EVERY NIGHT AT BEDTIME 06/05/2018 09/02/2018 Inactive Zetia 10 mg tablet RxNorm: 071436 1 Tablet(s) PO daily 05/11/2018 07/19/2018 Inactive Zetia 10 mg tablet RxNorm: 737474 1 Tablet(s) PO daily 05/11/2018 05/10/2018 Inactive enalapril maleate 5 mg tablet RxNorm: 981193 TAKE ONE TABLET BY MOUTH DAILY 04/05/2018 12/30/2018 Active indapamide 1.25 mg tablet RxNorm: 942707 TAKE ONE TABLET BY MOUTH DAILY 04/05/2018 07/18/2018 Inactive levothyroxine 100 mcg tablet RxNorm: 746180 Tablet(s) TAKE ONE TABLET BY MOUTH EVERY OTHER DAY. ALTERNATE WITH 112 MCG TABLET. 01/24/2018 05/23/2018 Inactive levothyroxine 112 mcg tablet RxNorm: 977501 1 Tablet(s) PO every other day . ALTERNATE WITH 100 MCG TABLET. 01/24/2018 05/23/2018 Inactive Crestor 10 mg tablet RxNorm: 863927 1 Tablet(s) PO Q 01/24/2018 04/13/2018 Inactive Crestor 10 mg tablet RxNorm: 106973 1 Tablet(s) PO QHS 01/24/2018 01/23/2018 Inactive gabapentin 100 mg capsule RxNorm: 225847 TAKE ONE CAPSULE BY MOUTH EVERY NIGHT AT BEDTIME 01/05/2018 06/04/2018 Inactive indapamide 1.25 mg tablet RxNorm: 090923 TAKE ONE TABLET BY MOUTH DAILY 01/05/2018 04/04/2018 Inactive Zocor 20 mg tablet RxNorm: 566307 TAKE ONE TABLET BY MOUTH DAILY 12/02/2017 01/11/2018 Inactive Phenergan-Codeine 6.25 mg-10 mg/5 mL syrup RxNorm: 565133 5-10 Milliliter(s) PO Q6 as needed cough 11/09/2017 No Stop Date Active Tamiflu 75 mg capsule RxNorm: 655498 1 Capsule(s) PO BID 11/09/2017 11/13/2017 Inactive Tamiflu 75 mg capsule RxNorm: 328861 1 Capsule(s) PO BID 11/09/2017 11/08/2017 Inactive levothyroxine 100 mcg tablet RxNorm: 115236 TAKE ONE TABLET BY MOUTH DAILY 10/28/2017 01/23/2018 Inactive indapamide 1.25 mg tablet RxNorm: 171444 TAKE ONE TABLET BY MOUTH DAILY 09/09/2017 01/04/2018 Inactive levothyroxine 100 mcg tablet RxNorm: 275089 1 Tablet(s) PO daily TAKE ONE TABLET BY MOUTH DAILY 08/04/2017 10/27/2017 Inactive Flagyl 500 mg tablet RxNorm: 244472 1 Tablet(s) PO TID 07/19/2017 07/28/2017 Inactive enalapril maleate 5 mg tablet RxNorm: 011530 TAKE ONE TABLET BY MOUTH DAILY 06/30/2017 12/26/2017 Inactive indapamide 1.25 mg tablet RxNorm: 445079 TAKE ONE TABLET BY MOUTH DAILY 05/26/2017 09/08/2017 Inactive Zocor 20 mg tablet RxNorm: 265740 TAKE ONE TABLET BY MOUTH DAILY 05/26/2017 10/22/2017 Inactive gabapentin 100 mg capsule RxNorm: 988788 1 Capsule(s) PO QHS 05/05/2017 09/01/2017 Inactive Kenalog 40 mg/mL suspension for injection RxNorm: 4934742 1 Milliliter(s) Inj 01/27/2017 01/27/2017 Inactive levothyroxine 112 mcg tablet RxNorm: 270413 TAKE ONE TABLET BY MOUTH DAILY 01/17/2017 08/03/2017 Inactive Zocor 20 mg tablet RxNorm: 113686 TAKE ONE TABLET BY MOUTH DAILY 11/08/2016 05/06/2017 Inactive indapamide 1.25 mg tablet RxNorm: 741290 TAKE ONE TABLET BY MOUTH DAILY 11/08/2016 05/06/2017 Inactive enalapril maleate 5 mg tablet RxNorm: 851790 TAKE ONE TABLET BY MOUTH DAILY 09/01/2016 05/28/2017 Inactive indapamide 1.25 mg tablet RxNorm: 961399 TAKE ONE TABLET BY MOUTH DAILY 08/02/2016 10/30/2016 Inactive Vitamin D2 50,000 unit capsule RxNorm: 821576 1 Capsule(s) PO QW 07/15/2016 01/17/2018 Inactive indapamide 1.25 mg tablet RxNorm: 484208 TAKE ONE TABLET BY MOUTH DAILY 04/29/2016 07/27/2016 Inactive Vitamin D2 50,000 unit capsule RxNorm: 942968 1 Capsule(s) PO QW 03/16/2016 07/14/2016 Inactive Zocor 20 mg tablet RxNorm: 043173 1 Tablet(s) PO daily 03/16/2016 10/11/2016 Inactive levothyroxine 112 mcg tablet RxNorm: 886155 TAKE ONE TABLET BY MOUTH DAILY 01/07/2016 12/31/2016 Inactive indapamide 1.25 mg tablet RxNorm: 667316 1 Tablet(s) PO daily 12/03/2015 03/31/2016 Inactive Vitamin D2 50,000 unit capsule RxNorm: 318550 1 Capsule(s) PO QW 09/26/2015 09/25/2015 Inactive Lipitor 10 mg tablet RxNorm: 228833 1 Tablet(s) PO daily 09/26/2015 03/15/2016 Inactive Vitamin D2 50,000 unit capsule RxNorm: 223330 1 Capsule(s) PO QW 09/26/2015 03/15/2016 Inactive enalapril maleate 5 mg tablet RxNorm: 346638 1 Tablet(s) PO daily 08/06/2015 07/30/2016 Inactive levothyroxine 112 mcg tablet RxNorm: 971526 1 Tablet(s) PO daily 04/04/2015 10/30/2015 Inactive Vitamin D3 2,000 unit capsule RxNorm: 101747 1 Capsule(s) PO daily No Start Date Active aspirin 500 mg tablet RxNorm: 301947 1 Tablet(s) PO daily No Start Date Active Co Q-10 oral RxNorm: 13093 oral No Start Date Active Phenergan-Codeine 6.25 mg-10 mg/5 mL syrup RxNorm: 700481 5-10 Milliliter(s) PO Q6 as needed cough No Start Date 11/08/2017 Inactive Lipitor 20 mg tablet RxNorm: 575299 1 Tablet(s) PO daily No Start Date 09/14/2015 Inactive indapamide 1.25 mg tablet RxNorm: 629239 1 Tablet(s) PO daily No Start Date 12/02/2015 Inactive enalapril maleate 5 mg tablet RxNorm: 134578 1 Tablet(s) PO daily No Start Date 08/05/2015 Inactive levothyroxine 112 mcg tablet RxNorm: 640230 1 Tablet(s) PO daily No Start Date 04/03/2015 Inactive Medication Administered Medication Codes Instructions Start Date Status Kenalog 40 mg/mL suspension for injection RxNorm: 0622419 1Milliliter 01/27/2017 No longer Active Immunizations Vaccine [...] (3rd IS) 2.55 uIU/mL 10/27/2018 Free T4 Whl687 FREE T4 1.07 ng/dL 10/27/2018 Comp Metabolic Ccs833 NA 138 mEq/L 10/26/2018 Comp Metabolic Fks758 K 4.3 mEq/L 10/26/2018 Comp Metabolic Ttl575 CL 102 mEq/L 10/26/2018 Comp Metabolic Itf023 CO2 26.0 mEq/L 10/26/2018 Comp Metabolic Tib572 ANION GAP 14 10/26/2018 Comp Metabolic Aqr672 GLUCOSE 88 mg/dL 10/26/2018 Comp Metabolic Klf637 Creat 0.9 mg/dL 10/26/2018 Comp Metabolic Zfb471 eGFR 63 ml/min/1.73m2 10/26/2018 Comp Metabolic Ygr060 BUN 25 mg/dL 10/26/2018 Comp Metabolic Buf385 B/C Ratio 26.6 Ratio 10/26/2018 Comp Metabolic Yfe214 CALCIUM 10.1 mg/dL 10/26/2018 Comp Metabolic Div544 ALK PHOS 77 U/L 10/26/2018 Comp Metabolic Tmq815 AST(SGOT) 16 U/L 10/26/2018 Comp Metabolic Yyp875 ALT(SGPT) 16 U/L 10/26/2018 Comp Metabolic Lid821 BILI T 0.5 mg/dL 10/26/2018 Comp Metabolic Who212 ALBUMIN 4.3 g/dL 10/26/2018 Comp Metabolic Kpo853 TPRO 6.8 g/dL 10/26/2018 Comp Metabolic Dpa728 GLOB 2.5 g/dL 10/26/2018 Comp Metabolic Oxf391 A/G Ratio 1.7 Ratio 10/26/2018 Comp Metabolic Jdz232 Osmo 279 mOsmo 10/26/2018 %Hba1C Dhc556 % HbA1c 63176- 6 5.2 % 10/26/2018 %Hba1C Iho515 Gluc Ave 103 mg/dL 10/26/2018 Cbc With [...] 29.1 pg 10/26/2018 Cbc With Differential Ord2 [place]% 9.6 % 10/26/2018 Cbc With Differential Ord2 [...] 1.94 K/ul 10/26/2018 Cbc With Differential Ord2 [place] ABS# 0.6 K/ul 10/26/2018 Cbc With Differential Ord2 Eos ABS# 0.1 K/ul 10/26/2018 Cbc With Differential Ord2 Baso ABS# 0.0 K/ul 10/26/2018 Lipid Ord30 CHOL 238 mg/dL 10/26/2018 Lipid Ord30 HDL 42.0 mg/dl 10/26/2018 Lipid Ord30 TRIG 270 mg/dL 10/26/2018 Lipid Ord30 LDL 142 mg/dL 10/26/2018 Lipid Ord30 C/HDL 5.7 Ratio 10/26/2018 %Hba1C Ngv094 % HbA1c 22279- 6 5.3 % 07/20/2018 %Hba1C Mqs744 Gluc Ave 105 mg/dL 07/20/2018 Comp Metabolic Ojj803 NA 139 mEq/L 07/20/2018 Comp Metabolic Jgq676 K 5.1 mEq/L 07/20/2018 Comp Metabolic Kug397 CL 106 mEq/L 07/20/2018 Comp Metabolic Hzu045 CO2 19.0 mEq/L 07/20/2018 Comp Metabolic Pzp642 ANION GAP 19 07/20/2018 Comp Metabolic Fkt526 GLUCOSE 88 mg/dL 07/20/2018 Comp Metabolic Ujc043 Creat 0.8 mg/dL 07/20/2018 Comp Metabolic Wos677 eGFR 77 ml/min/1.73m2 07/20/2018 Comp Metabolic Fdi521 BUN 25 mg/dL 07/20/2018 Comp Metabolic Zlc635 B/C Ratio 31.6 Ratio 07/20/2018 Comp Metabolic Fld131 CALCIUM 10.0 mg/dL 07/20/2018 Comp Metabolic Ymm502 ALK PHOS 81 U/L 07/20/2018 Comp Metabolic Kkt340 AST(SGOT) 26 U/L 07/20/2018 Comp Metabolic Xrc673 ALT(SGPT) 16 U/L 07/20/2018 Comp Metabolic Dkw715 BILI T 0.5 mg/dL 07/20/2018 Comp Metabolic Bal866 ALBUMIN 4.5 g/dL 07/20/2018 Comp Metabolic Ldw077 TPRO 7.2 g/dL 07/20/2018 Comp Metabolic Fbq134 GLOB 2.7 g/dL 07/20/2018 Comp Metabolic Kqt344 A/G Ratio 1.6 Ratio 07/20/2018 Comp Metabolic Tuq064 Osmo 281 mOsmo 07/20/2018 Free T4 Gaj336 FREE T4 1.00 ng/dL 07/20/2018 Tsh Ord6 TSH (3rd IS) 2.05 uIU/mL 07/20/2018 Vitamin D 25 Oh Ybl6110 VITAMIN D, 25 HYDROXY 57.07 ng/mL 07/20/2018 Lipid Ord30 CHOL 242 mg/dL 07/20/2018 Lipid Ord30 HDL 43.0 mg/dl 07/20/2018 Lipid Ord30 TRIG 314 mg/dL 07/20/2018 Lipid Ord30 LDL 136 mg/dL 07/20/2018 Lipid Ord30 C/HDL 5.6 Ratio 07/20/2018 Free T4 Fhq192 FREE T4 1.24 ng/dL 04/14/2018 Tsh Ord6 TSH (3rd IS) 0.65 uIU/mL 04/14/2018 %Hba1C Gft117 % HbA1c 07956- 6 5.1 % 01/12/2018 %Hba1C Dod334 Gluc Ave 100 mg/dL 01/12/2018 Free T4 Uxx892 FREE T4 0.97 ng/dL 01/12/2018 Lipid Ord30 [...] 29.7 pg 01/12/2018 Cbc With Differential Ord2 [place]% 10.3 % 01/12/2018 Cbc With Differential Ord2 [...] 2.40 K/ul 01/12/2018 Cbc With Differential Ord2 [place] ABS# 0.8 K/ul 01/12/2018 Cbc With Differential Ord2 Eos ABS# 0.2 K/ul 01/12/2018 Cbc With Differential Ord2 Baso ABS# 0.0 K/ul 01/12/2018 Comp Metabolic Lsl439 NA 138 mEq/L 01/12/2018 Comp Metabolic Oof592 K 4.1 mEq/L 01/12/2018 Comp Metabolic Rfl011 CL 100 mEq/L 01/12/2018 Comp Metabolic Bmc074 CO2 28.0 mEq/L 01/12/2018 Comp Metabolic Edy865 ANION GAP 14 01/12/2018 Comp Metabolic Aum277 GLUCOSE 84 mg/dL 01/12/2018 Comp Metabolic Kbf986 Creat 0.8 mg/dL 01/12/2018 Comp Metabolic Att627 eGFR 78 ml/min/1.73m2 01/12/2018 Comp Metabolic Zqr619 BUN 20 mg/dL 01/12/2018 Comp Metabolic Oib093 B/C Ratio 25.6 Ratio 01/12/2018 Comp Metabolic Hzj074 CALCIUM 9.6 mg/dL 01/12/2018 Comp Metabolic Xjt588 ALK PHOS 76 U/L 01/12/2018 Comp Metabolic Ykc066 AST(SGOT) 16 U/L 01/12/2018 Comp Metabolic Nup448 ALT(SGPT) 16 U/L 01/12/2018 Comp Metabolic Prw740 BILI T 0.4 mg/dL 01/12/2018 Comp Metabolic Lys342 ALBUMIN 4.1 g/dL 01/12/2018 Comp Metabolic Xpy178 TPRO 6.7 g/dL 01/12/2018 Comp Metabolic Rbm636 GLOB 2.6 g/dL 01/12/2018 Comp Metabolic Ond182 A/G Ratio 1.6 Ratio 01/12/2018 Comp Metabolic Szj428 Osmo 277 mOsmo 01/12/2018 Free T4 Msq263 FREE T4 1.40 ng/dL 08/05/2017 %Hba1C Rqk938 % HbA1c 20036- 6 5.0 % 08/05/2017 %Hba1C Jln372 Gluc Ave 97 mg/dL 08/05/2017 Cbc With [...] 29.5 pg 08/03/2017 Cbc With Differential Ord2 [place]% 9.3 % 08/03/2017 Cbc With Differential Ord2 [...] 2.10 K/ul 08/03/2017 Cbc With Differential Ord2 [place] ABS# 0.7 K/ul 08/03/2017 Cbc With Differential Ord2 Eos ABS# 0.1 K/ul 08/03/2017 Cbc With Differential Ord2 Baso ABS# 0.0 K/ul 08/03/2017 Vitamin D 25 Oh Ypm7045 VITAMIN D, 25 HYDROXY 52.73 ng/mL 08/03/2017 Lipid Ord30 CHOL 215 mg/dL 08/03/2017 Lipid Ord30 HDL 43.0 mg/dl 08/03/2017 Lipid Ord30 TRIG 278 mg/dL 08/03/2017 Lipid Ord30 LDL 116 mg/dL 08/03/2017 Lipid Ord30 C/HDL 5.0 Ratio 08/03/2017 Tsh Ord6 hTSH II 0.09 uIU/mL 08/03/2017 Comp Metabolic Djv659 NA 137 mEq/L 08/03/2017 Comp Metabolic Fvo372 K 4.3 mEq/L 08/03/2017 Comp Metabolic Vqx098 CL 102 mEq/L 08/03/2017 Comp Metabolic Luu037 CO2 24.0 mEq/L 08/03/2017 Comp Metabolic Iin468 ANION GAP 15 08/03/2017 Comp Metabolic Fqj411 GLUCOSE 80 mg/dL 08/03/2017 Comp Metabolic Sej171 Creat 0.9 mg/dL 08/03/2017 Comp Metabolic Wxk977 eGFR 68 ml/min/1.73m2 08/03/2017 Comp Metabolic Dew810 BUN 18 mg/dL 08/03/2017 Comp Metabolic Kdd721 B/C Ratio 20.5 Ratio 08/03/2017 Comp Metabolic Gyr762 CALCIUM 9.7 mg/dL 08/03/2017 Comp Metabolic Swz534 ALK PHOS 68 U/L 08/03/2017 Comp Metabolic Hdh394 AST(SGOT) 14 U/L 08/03/2017 Comp Metabolic Gqc128 ALT(SGPT) 14 U/L 08/03/2017 Comp Metabolic Wcw930 BILI T 0.6 mg/dL 08/03/2017 Comp Metabolic Bpg478 ALBUMIN 4.0 g/dL 08/03/2017 Comp Metabolic Ybb929 TPRO 6.4 g/dL 08/03/2017 Comp Metabolic Vwu004 GLOB 2.4 g/dL 08/03/2017 Comp Metabolic Hhe706 A/G Ratio 1.7 Ratio 08/03/2017 Comp Metabolic Rvj064 Osmo 275 mOsmo 08/03/2017 %Hba1C Zgy528 % HbA1c 16596- 6 5.1 % 01/06/2017 %Hba1C Fbn739 Gluc Ave 100 mg/dL 01/06/2017 Lipid Ord30 CHOL 223 mg/dL 01/06/2017 Lipid Ord30 HDL 44.0 mg/dl 01/06/2017 Lipid Ord30 TRIG 292 mg/dL 01/06/2017 Lipid Ord30 LDL 121 mg/dL 01/06/2017 Lipid Ord30 C/HDL 5.1 Ratio 01/06/2017 Tsh Ord6 hTSH II 0.99 uIU/mL 01/06/2017 Free T4 Vey411 FREE T4 0.96 ng/dL 01/06/2017 Cbc With [...] 29.6 pg 01/06/2017 Cbc With Differential Ord2 [place]% 9.2 % 01/06/2017 Cbc With Differential Ord2 [...] 1.85 K/ul 01/06/2017 Cbc With Differential Ord2 [place] ABS# 0.6 K/ul 01/06/2017 Cbc With Differential Ord2 Eos ABS# 0.1 K/ul 01/06/2017 Cbc With Differential Ord2 Baso ABS# 0.0 K/ul 01/06/2017 Vitamin D 25 Oh Mbv2705 VITAMIN D, 25 HYDROXY 35.10 ng/mL 01/06/2017 Comp Metabolic Jff944 NA 140 mEq/L 01/06/2017 Comp Metabolic Zuf843 K 4.3 mEq/L 01/06/2017 Comp Metabolic Fah235 CL 103 mEq/L 01/06/2017 Comp Metabolic Fta282 CO2 29.0 mEq/L 01/06/2017 Comp Metabolic Owf176 ANION GAP 12 01/06/2017 Comp Metabolic Kzf459 GLUCOSE 86 mg/dL 01/06/2017 Comp Metabolic Tta069 Creat 0.8 mg/dL 01/06/2017 Comp Metabolic Ary991 eGFR 82 ml/min/1.73m2 01/06/2017 Comp Metabolic Yuc660 BUN 19 mg/dL 01/06/2017 Comp Metabolic Bek771 B/C Ratio 25.3 Ratio 01/06/2017 Comp Metabolic Fqb474 CALCIUM 9.6 mg/dL 01/06/2017 Comp Metabolic Gyx835 ALK PHOS 77 U/L 01/06/2017 Comp Metabolic Yoz472 AST(SGOT) 16 U/L 01/06/2017 Comp Metabolic Ghn596 ALT(SGPT) 18 U/L 01/06/2017 Comp Metabolic Wzx681 BILI T 0.4 mg/dL 01/06/2017 Comp Metabolic Tyf966 ALBUMIN 4.1 g/dL 01/06/2017 Comp Metabolic Xhk217 TPRO 6.7 g/dL 01/06/2017 Comp Metabolic Vmk641 GLOB 2.6 g/dL 01/06/2017 Comp Metabolic Sev540 A/G Ratio 1.6 Ratio 01/06/2017 Comp Metabolic Ycc862 Osmo 281 mOsmo 01/06/2017 Vitamin D 25 Oh Uvs0761 VITAMIN D, 25 HYDROXY 42.77 ng/mL 07/09/2016 Free T4 Ren408 FREE T4 1.23 ng/dL 07/08/2016 Comp Metabolic Vxg693 NA 136 mEq/L 07/08/2016 Comp Metabolic Jpo019 K 4.1 mEq/L 07/08/2016 Comp Metabolic Zkl185 CL 103 mEq/L 07/08/2016 Comp Metabolic Eid389 CO2 26.0 mEq/L 07/08/2016 Comp Metabolic Nid167 ANION GAP 11 07/08/2016 Comp Metabolic Bmb756 GLUCOSE 83 mg/dL 07/08/2016 Comp Metabolic Vaq042 Creat 0.8 mg/dL 07/08/2016 Comp Metabolic Sjn752 eGFR 80 ml/min/1.73m2 07/08/2016 Comp Metabolic Ybh505 BUN 22 mg/dL 07/08/2016 Comp Metabolic Ayb037 B/C Ratio 28.9 Ratio 07/08/2016 Comp Metabolic Xrn340 CALCIUM 9.8 mg/dL 07/08/2016 Comp Metabolic Nzw367 ALK PHOS 75 U/L 07/08/2016 Comp Metabolic Fxc817 AST(SGOT) 14 U/L 07/08/2016 Comp Metabolic Cnx056 ALT(SGPT) 15 U/L 07/08/2016 Comp Metabolic Uzu560 BILI T 0.4 mg/dL 07/08/2016 Comp Metabolic Nvl638 ALBUMIN 4.1 g/dL 07/08/2016 Comp Metabolic Apv163 TPRO 6.6 g/dL 07/08/2016 Comp Metabolic Cli230 GLOB 2.5 g/dL 07/08/2016 Comp Metabolic Zam463 A/G Ratio 1.7 Ratio 07/08/2016 Comp Metabolic Ymy644 Osmo 274 mOsmo 07/08/2016 %Hba1C Qrg841 % HbA1c 09864- 6 5.4 % 07/08/2016 %Hba1C Yty368 Gluc Ave 108 mg/dL 07/08/2016 Cbc With [...] 29.8 pg 07/08/2016 Cbc With Differential Ord2 [place]% 10.1 % 07/08/2016 Cbc With Differential Ord2 [...] 1.89 K/ul 07/08/2016 Cbc With Differential Ord2 [place] ABS# 0.7 K/ul 07/08/2016 Cbc With Differential Ord2 Eos ABS# 0.2 K/ul 07/08/2016 Cbc With Differential Ord2 Baso ABS# 0.0 K/ul 07/08/2016 Tsh Ord6 hTSH II 0.21 uIU/mL 07/08/2016 Lipid Ord30 CHOL 210 mg/dL 07/08/2016 Lipid Ord30 HDL 41.0 mg/dl 07/08/2016 Lipid Ord30 TRIG 257 mg/dL 07/08/2016 Lipid Ord30 LDL 118 mg/dL 07/08/2016 Lipid Ord30 C/HDL 5.1 Ratio 07/08/2016 Vitamin D 25 Oh Viw4439 VITAMIN D, 25 HYDROXY 34.38 ng/mL 03/10/2016 %Hba1C Udt450 % HbA1c 49645- 6 5.3 % 03/09/2016 %Hba1C Ndd350 Gluc Ave 105 mg/dL 03/09/2016 Comp Metabolic Cul211 NA 137 mEq/L 03/09/2016 Comp Metabolic Wgr235 K 4.5 mEq/L 03/09/2016 Comp Metabolic Yrz702 CL 104 mEq/L 03/09/2016 Comp Metabolic Rfd928 CO2 27.0 mEq/L 03/09/2016 Comp Metabolic Hyp849 ANION GAP 11 03/09/2016 Comp Metabolic Hjk756 GLUCOSE 86 mg/dL 03/09/2016 Comp Metabolic Yzv479 Creat 0.8 mg/dL 03/09/2016 Comp Metabolic Auf044 eGFR 81 ml/min/1.73m2 03/09/2016 Comp Metabolic Crl082 BUN 23 mg/dL 03/09/2016 Comp Metabolic Qyu900 B/C Ratio 30.3 Ratio 03/09/2016 Comp Metabolic Eup080 CALCIUM 9.4 mg/dL 03/09/2016 Comp Metabolic Lrl767 ALK PHOS 69 U/L 03/09/2016 Comp Metabolic Ozf719 AST(SGOT) 14 U/L 03/09/2016 Comp Metabolic Ozg454 ALT(SGPT) 14 U/L 03/09/2016 Comp Metabolic Mff181 BILI T 0.4 mg/dL 03/09/2016 Comp Metabolic Wdv795 ALBUMIN 4.1 g/dL 03/09/2016 Comp Metabolic Lbh103 TPRO 6.6 g/dL 03/09/2016 Comp Metabolic Vzl077 GLOB 2.5 g/dL 03/09/2016 Comp Metabolic Uda171 A/G Ratio 1.6 Ratio 03/09/2016 Comp Metabolic Dfh635 Osmo 277 mOsmo 03/09/2016 Tsh Ord6 hTSH [...] 28.9 pg 03/09/2016 Cbc With Differential Ord2 [place]% 11.1 % 03/09/2016 Cbc With Differential Ord2 [...] 2.16 K/ul 03/09/2016 Cbc With Differential Ord2 [place] ABS# 0.9 K/ul 03/09/2016 Cbc With Differential Ord2 Eos ABS# 0.1 K/ul 03/09/2016 Cbc With Differential Ord2 Baso ABS# 0.0 K/ul 03/09/2016 Lipid Ord30 CHOL 283 mg/dL 03/09/2016 Lipid Ord30 HDL 40.0 mg/dl 03/09/2016 Lipid Ord30 TRIG 271 mg/dL 03/09/2016 Lipid Ord30 LDL 189 mg/dL 03/09/2016 Lipid Ord30 C/HDL 7.1 Ratio 03/09/2016 Comp Metabolic Dty475 NA 137 mEq/L 09/15/2015 Comp Metabolic Yaz832 K 4.4 mEq/L 09/15/2015 Comp Metabolic Qpn135 CL 101 mEq/L 09/15/2015 Comp Metabolic Agp810 CO2 28.0 mEq/L 09/15/2015 Comp Metabolic Afx588 ANION GAP 12 09/15/2015 Comp Metabolic Yyn553 GLUCOSE 89 mg/dL 09/15/2015 Comp Metabolic Pwd946 Creat 0.8 mg/dL 09/15/2015 Comp Metabolic Cow482 eGFR 73 ml/min/1.73m2 09/15/2015 Comp Metabolic Ckg011 BUN 20 mg/dL 09/15/2015 Comp Metabolic Yoy958 B/C Ratio 24.1 Ratio 09/15/2015 Comp Metabolic Zkh413 CALCIUM 10.1 mg/dL 09/15/2015 Comp Metabolic Zoq154 ALK PHOS 72 U/L 09/15/2015 Comp Metabolic Ucn433 AST(SGOT) 16 U/L 09/15/2015 Comp Metabolic Hdi624 ALT(SGPT) 15 U/L 09/15/2015 Comp Metabolic Eky249 BILI T 0.5 mg/dL 09/15/2015 Comp Metabolic Xro663 ALBUMIN 4.4 g/dL 09/15/2015 Comp Metabolic Ltr290 TPRO 7.0 g/dL 09/15/2015 Comp Metabolic Xpy072 GLOB 2.6 g/dL 09/15/2015 Comp Metabolic Cog463 A/G Ratio 1.7 Ratio 09/15/2015 Comp Metabolic Qvo998 Osmo 276 mOsmo 09/15/2015 Tsh Ord6 hTSH II 2.99 uIU/mL 09/15/2015 Vitamin D 25 Oh Rmy4332 VITAMIN D, 25 HYDROXY 30.19 ng/mL 09/15/2015 [...] Lipid Ord30 C/HDL 7.0 Ratio 09/15/2015 %Hba1C Dnv696 % HbA1c 16822- 6 5.2 % 09/15/2015 %Hba1C Lww534 Gluc Ave 103 mg/dL 09/15/2015 Review of [...] Formatting Model/CDA Sections, Assigned to/Margarita Brock CPT-4: [id number] 07/27/2018 FLU VAC NO PRSV 4 SHANNON 3 YRS+ CPT-4: 24156 08/04/2017 ADMIN INFLUENZA VIRUS VAC CPT-4: G0008 08/04/2017 TRIAMCINOLONE ACET INJ NOS CPT-4: J3301 01/27/2017 THER/PROPH/DIAG INJ SC/IM CPT-4: 89828 01/27/2017 ADMIN INFLUENZA VIRUS VAC CPT-4: G0008 07/15/2016 FLU VACC 4 SHANNON 3 YRS PLUS IM SNOMED CT: [id number] CPT-4: 45217 07/15/2016 Vital Signs Date Vital 12/22/2018 Blood Pressure 1: 140/74 Code: 8480-6 Heart Rate 1: 59 bpm Height: 5'4" SpO2: 99% Weight: 12/19/2018 Blood Pressure 1: 128/78 Code: 8480-6 Heart Rate 1: 96 bpm Height: 5'4" SpO2: 97% Weight: 10/26/2018 Blood Pressure 1: 132/76 Code: 8480-6 BMI: 34.5 Code: 77239-9 Heart Rate 1: 55 bpm Height: 5'4" SpO2: 99% Weight: 204 lbs 07/20/2018 Blood Pressure 1: 116/74 Code: 8480-6 BMI: 34.5 Code: 29687-3 Heart Rate 1: 52 bpm Height: 5'4" SpO2: 99% Weight: 204 lbs 04/14/2018 Blood Pressure 1: 128/76 Code: 8480-6 BMI: 34.5 Code: 43471-3 Heart Rate 1: 67 bpm Height: 5'4" SpO2: 95% Weight: 204 lbs 02/06/2018 Blood Pressure 1: 142/78 Code: 8480-6 BMI: 35.2 Code: 15222-2 Heart Rate 1: 58 bpm Height: 5'4" SpO2: 98% Weight: 208 lbs 01/12/2018 Blood Pressure 1: 132/82 Code: 8480-6 BMI: 34.8 Code: 19742-9 Height: 5'4" Weight: 206 lbs 08/04/2017 Blood Pressure 1: 140/82 Code: 8480-6 BMI: 31.9 Code: 62959-6 Heart Rate 1: 58 bpm Height: 5'4" SpO2: 99% Weight: 188 lbs 8 oz 07/19/2017 Blood Pressure 1: 136/76 Code: 8480-6 BMI: 32.0 Code: 54559-4 Heart Rate 1: 67 bpm Height: 5'4" SpO2: 97% Weight: 189 lbs 8 oz 05/05/2017 Blood Pressure 1: 142/80 Code: 8480-6 BMI: 32.4 Code: 54804-0 Heart Rate 1: 54 bpm Height: 5'4" SpO2: 98% Weight: 191 lbs 8 oz 01/27/2017 Blood Pressure 1: 132/82 Code: 8480-6 BMI: 34.1 Code: 45781-7 Heart Rate 1: 55 bpm Height: 5'4" SpO2: 99% Weight: 202 lbs 07/15/2016 Blood Pressure 1: 128/72 Code: 8480-6 BMI: 34.4 Code: 19640-6 Heart Rate 1: 50 bpm Height: 5'4" SpO2: 98% Weight: 203 lbs 8 oz 03/16/2016 Blood Pressure 1: 118/78 Code: 8480-6 BMI: 34.5 Code: 45731-8 Heart Rate 1: 55 bpm Height: 5'4" SpO2: 98% Weight: 204 lbs 09/15/2015 Blood Pressure 1: 134/72 Code: 8480-6 BMI: 34.6 Code: 24019-4 Heart Rate 1: 52 bpm Height: 5'4" SpO2: 99% Weight: 205 lbs 03/17/2015 Blood Pressure 1: 128/74 Code: 8480-6 BMI: 35.8 Code: 03840-2 Heart Rate 1: 59 bpm Height: 5'4" [...] data Encounters Encounter Performer Location Codes Date ([id number]) Miscellaneous no charge Diagnosis: Paroxysmal atrial fibrillation[ICD10: I48.0] Delmis Bermudez MD, [facility] CPT-4: 76441 12/22/2018 ([id number]) [id number] EST. PATIENT, LEVEL IV Diagnosis: Paroxysmal atrial fibrillation[ICD10: I48.0] Diagnosis: Hypothyroidism, unspecified[ICD10: E03.9] Diagnosis: Essential (primary) hypertension[ICD10: I10] Ria Bermudez MD, [facility] CPT-4: 21265 12/19/2018 ([id number]) [id number] EST. PATIENT, LEVEL IV Diagnosis: Essential (primary) hypertension[ICD10: I10] Diagnosis: Type 2 diabetes mellitus with diabetic polyneuropathy[ICD10: E11.42] Diagnosis: Hypothyroidism, unspecified[ICD10: E03.9] Diagnosis: Mixed hyperlipidemia[ICD10: E78.2] Diagnosis: Lumbago with sciatica, right side[ICD10: M54.41] Delmis Bermudez MD, [facility] CPT-4: 34304 10/26/2018 [id number]) [id number] EST. PATIENT, LEVEL IV Diagnosis: Type 2 diabetes mellitus with diabetic polyneuropathy[ICD10: E11.42] Diagnosis: Mixed hyperlipidemia[ICD10: E78.2] Diagnosis: Essential (primary) hypertension[ICD10: I10] Diagnosis: Vitamin D deficiency, unspecified[ICD10: E55.9] Diagnosis: Hypothyroidism, unspecified[ICD10: E03.9] Delmis Bermudez MD, [facility] CPT-4: 47675 07/20/2018 ([id number]) 53299 EST. PATIENT, LEVEL IV Diagnosis: Essential (primary) hypertension[ICD10: I10] Diagnosis: Hypothyroidism, unspecified[ICD10: E03.9] Diagnosis: Mixed hyperlipidemia[ICD10: E78.2] Delmis Bermudez MD, [facility] CPT- 4: 03684 04/14/2018 ([id number]) 42391 EST. PATIENT, LEVEL III Diagnosis: Type 2 diabetes mellitus with diabetic polyneuropathy[ICD10: E11.42] Delmis Bermudez MD, [facility] CPT-4: 28764 02/06/2018 ([id number]) 02714 EST. PATIENT, LEVEL IV Diagnosis: Mixed hyperlipidemia[ICD10: E78.2] Diagnosis: Hypothyroidism, unspecified[ICD10: E03.9] Diagnosis: Type 2 diabetes mellitus without complications[ICD10: E11.9] Delmis Bermudez MD, [facility] CPT-4: 12273 01/12/2018 ([id number]) 07926 EST. PATIENT, LEVEL IV Diagnosis: Essential (primary) hypertension[ICD10: I10] Diagnosis: Mixed hyperlipidemia[ICD10: E78.2] Diagnosis: Hypothyroidism, unspecified[ICD10: E03.9] Diagnosis: Type 2 diabetes mellitus without complications[ICD10: E11.9] Diagnosis: Encounter for immunization[ICD10: Z23] [facility] CPT-4: 05313 08/04/2017 ([id number]) 83527 EST. PATIENT, LEVEL III Diagnosis: Diverticulitis of large intestine without perforation or abscess without bleeding[ICD10: K57.32] Delmis Bermudez MD, [facility] CPT-4: 15066 07/19/2017 ([id number]) 58162 EST. PATIENT, LEVEL III Diagnosis: Type 2 diabetes mellitus with diabetic polyneuropathy[ICD10: E11.42] Delmis Bermudez MD, [facility] CPT-4: 73549 05/05/2017 ([id number]) 52996 EST. PATIENT, LEVEL IV Diagnosis: Essential (primary) hypertension[ICD10: I10] Diagnosis: Type 2 diabetes mellitus without complications[ICD10: E11.9] Diagnosis: Mixed hyperlipidemia[ICD10: E78.2] Diagnosis: Allergic rhinitis due to pollen[ICD10: J30.1] Ria Bermudez MD, [facility] CPT-4: 29380 01/27/2017 ([id number]) 51025 EST. PATIENT, LEVEL IV Diagnosis: Type 2 diabetes mellitus without complications[ICD10: E11.9] Diagnosis: Essential (primary) hypertension[ICD10: I10] Diagnosis: Mixed hyperlipidemia[ICD10: E78.2] Ria Bermudez MD, [facility] CPT- 4: 35738 07/15/2016 ([id number]) 28329 EST. PATIENT, LEVEL IV Diagnosis: Type 2 diabetes mellitus without complications[ICD10: E11.9] Diagnosis: Polyneuropathy, unspecified[ICD10: G62.9] Diagnosis: Mixed hyperlipidemia[ICD10: E78.2] Ria Bermudez MD, [facility] CPT- 4: 93807 03/16/2016 [id number]) 52030 EST. PATIENT, LEVEL IV Diagnosis: Type 2 diabetes mellitus without complications[ICD10: E11.9] Diagnosis: Essential (primary) hypertension[ICD10: I10] Diagnosis: Vitamin D deficiency, unspecified[ICD10: E55.9] Diagnosis: Mixed hyperlipidemia[ICD10: E78.2] Ria Bermudez MD, [facility] CPT- 4: 37301 09/15/2015 ([id number]) OFFICE VISIT, NEW - LEVEL 4 Diagnosis: ESSENTIAL HYPERTENSION[ICD9: 401.9] Diagnosis: Diabetes mellitus type 2, controlled[ICD9: 250.00] Diagnosis: Peripheral neuropathy[ICD9: 356.9] Delmis Bermudez MD, [facility] CPT- 4: 59373 03/17/2015 Plan of Care Planned Activity Notes Codes Status Date Referral: Lindsey Poole She needs to arrive 15 minutes early. Patient informed. Completed 01/04/2019 Visit Plan: Afib -patient is doing MUCH better -heart sounds regular today -shortness of breath, dizziness and nausea have resolved - continue same meds and follow up with oil burner mechanic as scheduled. Patient irineo hart understanding of plan. 12/22/2018 Patient Education: Patient Medication Summary Completed 12/22/2018 Visit Plan: Atrial Fibrillation -new onset-Dr Bermudez in to evaluate patient- will start patient on cardizem cd and eliquis -get EKG and labs today- schedule echo and refer to cardiology-instructed patient and her to go to ER if symptoms worsen or do not improve -patient and verbalized understanding of plan. Hypothyroidism-check labs today VLC-fwwjiiwdlm-mdxeotyq to monitor 12/19/2018 Visit Plan: Atrial Fibrillation -new onset-Dr Bermudez in to evaluate patient- will start patient on cardizem cd and eliquis -get EKG and labs today- schedule echo and refer to cardiology-instructed patient and her to go to ER if symptoms worsen or do not improve -patient and verbalized understanding of plan. Hypothyroidism-check labs today XKD-cmtgcjvlgt-pqphtwsi to monitor 12/19/2018 Visit Plan: Atrial Fibrillation -new onset-Dr Bermudez in to evaluate patient- will start patient on cardizem cd and eliquis -get EKG and labs today- schedule echo and refer to cardiology-instructed patient and her to go to ER if symptoms worsen or do not improve -patient and verbalized understanding of plan. Hypothyroidism-check labs today KMZ-orswrnjwfj-rvyrcpax to monitor 12/19/2018 Appointment: Delmis Her WPtel: [address] [place], [place] [phone] (30 min) Complex 12/19/2018 Patient Education: Patient Medication Summary Completed 12/19/2018 Patient Education: Eliquis - 18+ - No HI MA NE Completed 12/19/2018 Care Plan: Cbc With Differential Pending 12/19/2018 Care Plan: Comp Metabolic Pending 12/19/2018 Care Plan: Tsh Pending 12/19/2018 Care Plan: Free T4 Pending 12/19/2018 Care Plan: Referral Order SNOMED-CT : [id number] Pending 12/19/2018 Visit Plan: Hypertension - well [...] they worsen. 10/26/2018 Appointment: Delmis [facility] WPtel[phone] (15 min) Moderate 10/26/2018 Patient Education: [...] of control. 07/20/2018 Appointment: Delmis Her WPtel[phone] (15 min) Moderate 07/20/2018 Patient Education: Patient [...] start it 04/14/2018 Appointment: Delmis Her WPtel[phone] (15 min) Moderate 04/14/2018 Patient Education: Patient Medication Summary Completed 04/14/2018 Visit Plan: Diabetic peripheral neuropathy -paperwork for diabetic shoes completed today in the office and will fax to Dr Briscoe's office- Patient verbalized understanding of plan. 02/06/2018 Appointment: Delmis Her WPtel: [phone] [phone] (15 min) Moderate 02/06/2018 Patient Education: Patient [...] control. 01/12/2018 Appointment: [phone] [phone] (30 min) Complex 01/12/2018 Patient Education: [...] to medications. 08/04/2017 Appointment: Delmis Her WPtel: [address] [place], [place] [phone] (30 min) Complex 08/04/2017 Patient Education: Patient Medication Summary Completed 08/04/2017 Patient Education: Obesity Completed 08/04/2017 Care Plan: %Hba1C LOINC : 81561-2 Pending 08/04/2017 Visit Plan: Diverticulitis - rx for antibiotic sent to pt's pharmacy - pt advised to avoid seeds, nuts, popcorn, or any other food which has been proven to upset the pt's stomach. Call if symptoms do not improve or if any worse and we will check labs and CT scan. Patient verbalized understanding of plan. 07/19/2017 Appointment: Delmis Her WPtel: [address] [place], [place] [phone] [place] [address] (30 min) Complex 07/19/2017 Patient Education: Patient Medication Summary Completed 07/19/2017 Patient Education: Obesity Completed 07/19/2017 Visit Plan: Diabetic peripheral neuropathy - diabetes paperwork completed today in the office-patient does want to start medication-RX for gabapentin sent electronically and provided and instructed on use. Patient verbalized understanding of plan. 05/05/2017 Appointment: Delmis Her WPtel: [address] [place], [place] [phone] (30 min) Complex 05/05/2017 Patient Education: Patient Medication Summary Completed 05/05/2017 Patient Education: Obesity Completed 05/05/2017 Appointment: Delmis Her WPtel: [address] [place], [place] [phone] [facility] - Annual Wellness Visit 01/28/2017 Visit [...] - shot of kenalog 01/27/2017 Appointment: Ria Bermduez WPtel: [phone] [facility] (15 min) Moderate 01/27/2017 Patient Education: Patient Medication Summary Completed 01/27/2017 Patient Education: Obesity Completed 01/27/2017 Appointment: Ria Bermudez WPtel: [phone] [facility] (15 min) Moderate 01/11/2017 Visit Plan: Hypertension [...] response to me dications. 07/15/2016 Appointment: Ria Bermudeztel: [phone] [facility] (15 min) Moderate 07/15/2016 Patient Education: Patient [...] time. 03/16/2016 Appointment: Ria Bermudez WPtel: [phone] [facility] (15 min) Moderate 03/16/2016 Patient Education: Patient [...] are starting to become less controlled. Peripheral macfpthcfp-RJ-tqrqfdgp foot exam today in the office and [...] are starting to become less controlled. Peripheral zbjmfqakzh-KL-njglyzny foot exam today in the office and [...] are starting to become less controlled. Peripheral kzqliyufeh-PK-emgzthdm foot exam today in the office and paperwork completed for diabetic shoes-see scanned document 03/17/2015 Appointment: [facility]erm[facility]Ptel[phone] [place] [facility] New Patient 03/17/2015 Patient Education: Patient Medication Summary Completed 03/17/2015 Patient Education: Hypertension Completed 03/17/2015 Referral: Lindsey Poole Referral Appointment Requested Instructions Comment . Afib -patient is doing MUCH better -heart sounds regular today -shortness of breath, dizziness and nausea have resolved -continue same meds and follow up with oil burner mechanic as scheduled. Patient verbalized understanding of plan. [...] are starting to become less controlled. Peripheral uwlvzsgjad-ST-wcyeenmj foot exam today in the office and [...] are starting to become less controlled. Peripheral dsxktpluhd-OK-wiuxaptj foot exam today in the office and [...] are starting to become less controlled. Peripheral ysroxdkbkg-JU-qrzlgizp foot exam today in the office and [...] HOSPITAL ECHO -WE WILL SCHEDULE REFER TO BASIN TENDER -DR POOLE . Atrial Fibrillation -new onset-Dr Bermudez in to evaluate patient- will start patient on cardizem cd and eliquis -get EKG and labs today- schedule echo and refer to cardiology-instructed patient and her to go to ER if symptoms worsen or do not improve -patient and verbalized understanding of plan. Hypothyroidism-check labs today JFV-ctbvkgxwpp-gdmztvjs to monitor CARDIZEM CD 120MG DAILY ELIQUIS 5MG TWICE DAILY -SAMPLES PROVIDED EKG AND LABS TODAY AT THE HOSPITAL ECHO -WE WILL SCHEDULE REFER TO BASIN TENDER -DR POOLE . Atrial Fibrillation -new onset-Dr Bermudez in to evaluate patient- will start patient on cardizem cd and eliquis -get EKG and labs today- schedule echo and refer to cardiology-instructed patient and her to go to ER if symptoms worsen or do not improve -patient and verbalized understanding of plan. Hypothyroidism-check labs today ITL-xjwzqyrtda-jujyspko to monitor CARDIZEM CD 120MG DAILY ELIQUIS 5MG TWICE DAILY -SAMPLES PROVIDED EKG AND LABS TODAY AT THE HOSPITAL ECHO -WE WILL SCHEDULE REFER TO BASIN TENDER -DR POOLE . Atrial Fibrillation -new onset-Dr Bermudez in to evaluate patient- will start patient on cardizem cd and eliquis -get EKG and labs today- schedule echo and refer to cardiology-instructed patient and her to go to ER if symptoms worsen or do not improve -patient and verbalized understanding of plan. Hypothyroidism-check labs today URH-bsyttovcms-gmdpdkwi to monitor check labs today . Hypertension [...]
--- OUTSIDE RECORDS SUMMARY | 2019-04-04 07:09 | XMS REPORT | CCD ---
Author Author Delmis Her Organization Ria Bermudez MD, [facility] Address [address] [place] [address] Phone Care Team Providers Care Vegetable Cook Name Role Phone PP Unavailable CCM Unavailable Summary Purpose Interface Exchange Insurance Providers Payer name Policy type / Coverage type Covered constitution party ID Effective Begin Date Effective End Date WPS Medicare Part B Medicare Part B [id number] Unknown [facility] Medicare Part B [id number] Unknown Family history Son Diagnosis Age At [...] Unknown Retired 03/17/[address]: 092950364 Never smoker 03/17/[address]: 288475638 Never smoker 03/17/2015 Allergies, Adverse Reactions, Alerts Substance Reaction Codes Entered Date Inactivated Date Status * NO KNOWN FOOD ALLERGIES Unknown 03/17/2015 No Inactive Date Active ciprofloxacin RxNorm: 00665 03/17/2015 No Inactive Date Active Erythromycin RxNorm: 4053 03/17/2015 No Inactive Date Active Penicillin Unknown 03/17/2015 No Inactive Date Active FHBVTEP-FOC-MNG REDUCTASE INHIBITORS myalgias, Unknown 03/16/2016 No Inactive Date Active SULFA(SULFONAMIDE ANTIBIOTICS) Unknown 03/17/2015 No Inactive Date Active Past Medical History Illness Codes Condition Status Onset Date Resolved Date Essential (primary) hypertension ICD-9: 401.1 ICD-10: I10 Active 01/27/2017 Unknown Hypothyroidism, unspecified ICD-9: 244.9 ICD-10: E03.9 Active 08/04/2017 Unknown Paroxysmal atrial fibrillation ICD-9: 427.31 ICD-10: I48.0 Active 12/19/2018 Unknown Sciatica Unknown Active 10/26/2018 Unknown Lumbago [...] unspecified ICD-9: 244.9 ICD-10: E03.9 08/04/2017 Active Paroxysmal atrial fibrillation ICD-9: 427.31 ICD-10: I48.0 12/19/2018 Active Sciatica Unknown 10/26/2018 Active Lumbago with [...] Fill Instructions Zetia 10 mg tablet RxNorm: 960343 1/2 Tablet(s) PO daily 12/19/2018 No Stop Date Active Cardizem CD 120 mg capsule,extended release RxNorm: 333027 1 Capsule(s) PO daily 12/19/2018 06/16/2019 Active Eliquis 5 mg tablet RxNorm: 3100873 1 Tablet(s) PO BID 12/19/2018 No Stop Date Active gabapentin 100 mg capsule RxNorm: 581186 TAKE ONE CAPSULE BY MOUTH EVERY NIGHT AT BEDTIME 12/11/2018 02/08/2019 Active levothyroxine 112 mcg tablet RxNorm: 885130 TAKE ONE TABLET BY MOUTH EVERY OTHER DAY ALTERNATE WITH 100MCG TABLET 12/07/2018 03/06/2019 Active Zetia 10 mg tablet RxNorm: 371914 1 Tablet(s) PO daily 10/26/2018 12/18/2018 Inactive Zetia 10 mg tablet RxNorm: 808195 1/2 Tablet(s) PO daily 07/20/2018 10/25/2018 Inactive indapamide 1.25 mg tablet RxNorm: 634767 Tablet(s) TAKE ONE TABLET BY MOUTH DAILY 07/19/2018 07/13/2019 Active levothyroxine 112 mcg tablet RxNorm: 780035 TAKE ONE TABLET BY MOUTH EVERY OTHER DAY ALTERNATE WITH 100MCG TABLET 07/19/2018 11/15/2018 Inactive gabapentin 100 mg capsule RxNorm: 896178 TAKE ONE CAPSULE BY MOUTH EVERY NIGHT AT BEDTIME 06/05/2018 09/02/2018 Inactive Zetia 10 mg tablet RxNorm: 358661 1 Tablet(s) PO daily 05/11/2018 07/19/2018 Inactive Zetia 10 mg tablet RxNorm: 705752 1 Tablet(s) PO daily 05/11/2018 05/10/2018 Inactive enalapril maleate 5 mg tablet RxNorm: 477882 TAKE ONE TABLET BY MOUTH DAILY 04/05/2018 12/30/2018 Active indapamide 1.25 mg tablet RxNorm: 746442 TAKE ONE TABLET BY MOUTH DAILY 04/05/2018 07/18/2018 Inactive levothyroxine 100 mcg tablet RxNorm: 294794 Tablet(s) TAKE ONE TABLET BY MOUTH EVERY OTHER DAY. ALTERNATE WITH 112 MCG TABLET. 01/24/2018 05/23/2018 Inactive levothyroxine 112 mcg tablet RxNorm: 071937 1 Tablet(s) PO every other day . ALTERNATE WITH 100 MCG TABLET. 01/24/2018 05/23/2018 Inactive Crestor 10 mg tablet RxNorm: 316092 1 Tablet(s) PO Q 01/24/2018 04/13/2018 Inactive Crestor 10 mg tablet RxNorm: 679323 1 Tablet(s) PO QHS 01/24/2018 01/23/2018 Inactive gabapentin 100 mg capsule RxNorm: 731521 TAKE ONE CAPSULE BY MOUTH EVERY NIGHT AT BEDTIME 01/05/2018 06/04/2018 Inactive indapamide 1.25 mg tablet RxNorm: 453956 TAKE ONE TABLET BY MOUTH DAILY 01/05/2018 04/04/2018 Inactive Zocor 20 mg tablet RxNorm: 173080 TAKE ONE TABLET BY MOUTH DAILY 12/02/2017 01/11/2018 Inactive Phenergan-Codeine 6.25 mg-10 mg/5 mL syrup RxNorm: 995503 5-10 Milliliter(s) PO Q6 as needed cough 11/09/2017 No Stop Date Active Tamiflu 75 mg capsule RxNorm: 976731 1 Capsule(s) PO BID 11/09/2017 11/13/2017 Inactive Tamiflu 75 mg capsule RxNorm: 907408 1 Capsule(s) PO BID 11/09/2017 11/08/2017 Inactive levothyroxine 100 mcg tablet RxNorm: 028060 TAKE ONE TABLET BY MOUTH DAILY 10/28/2017 01/23/2018 Inactive indapamide 1.25 mg tablet RxNorm: 930414 TAKE ONE TABLET BY MOUTH DAILY 09/09/2017 01/04/2018 Inactive levothyroxine 100 mcg tablet RxNorm: 577197 1 Tablet(s) PO daily TAKE ONE TABLET BY MOUTH DAILY 08/04/2017 10/27/2017 Inactive Flagyl 500 mg tablet RxNorm: 651898 1 Tablet(s) PO TID 07/19/2017 07/28/2017 Inactive enalapril maleate 5 mg tablet RxNorm: 707042 TAKE ONE TABLET BY MOUTH DAILY 06/30/2017 12/26/2017 Inactive indapamide 1.25 mg tablet RxNorm: 113454 TAKE ONE TABLET BY MOUTH DAILY 05/26/2017 09/08/2017 Inactive Zocor 20 mg tablet RxNorm: 961014 TAKE ONE TABLET BY MOUTH DAILY 05/26/2017 10/22/2017 Inactive gabapentin 100 mg capsule RxNorm: 769869 1 Capsule(s) PO QHS 05/05/2017 09/01/2017 Inactive Kenalog 40 mg/mL suspension for injection RxNorm: 0774827 1 Milliliter(s) Inj 01/27/2017 01/27/2017 Inactive levothyroxine 112 mcg tablet RxNorm: 151852 TAKE ONE TABLET BY MOUTH DAILY 01/17/2017 08/03/2017 Inactive Zocor 20 mg tablet RxNorm: 897062 TAKE ONE TABLET BY MOUTH DAILY 11/08/2016 05/06/2017 Inactive indapamide 1.25 mg tablet RxNorm: 760731 TAKE ONE TABLET BY MOUTH DAILY 11/08/2016 05/06/2017 Inactive enalapril maleate 5 mg tablet RxNorm: 895152 TAKE ONE TABLET BY MOUTH DAILY 09/01/2016 05/28/2017 Inactive indapamide 1.25 mg tablet RxNorm: 845441 TAKE ONE TABLET BY MOUTH DAILY 08/02/2016 10/30/2016 Inactive Vitamin D2 50,000 unit capsule RxNorm: 982408 1 Capsule(s) PO QW 07/15/2016 01/17/2018 Inactive indapamide 1.25 mg tablet RxNorm: 598671 TAKE ONE TABLET BY MOUTH DAILY 04/29/2016 07/27/2016 Inactive Vitamin D2 50,000 unit capsule RxNorm: 577779 1 Capsule(s) PO QW 03/16/2016 07/14/2016 Inactive Zocor 20 mg tablet RxNorm: 051092 1 Tablet(s) PO daily 03/16/2016 10/11/2016 Inactive levothyroxine 112 mcg tablet RxNorm: 568848 TAKE ONE TABLET BY MOUTH DAILY 01/07/2016 12/31/2016 Inactive indapamide 1.25 mg tablet RxNorm: 699334 1 Tablet(s) PO daily 12/03/2015 03/31/2016 Inactive Vitamin D2 50,000 unit capsule RxNorm: 994795 1 Capsule(s) PO QW 09/26/2015 09/25/2015 Inactive Lipitor 10 mg tablet RxNorm: 402277 1 Tablet(s) PO daily 09/26/2015 03/15/2016 Inactive Vitamin D2 50,000 unit capsule RxNorm: 289054 1 Capsule(s) PO QW 09/26/2015 03/15/2016 Inactive enalapril maleate 5 mg tablet RxNorm: 863682 1 Tablet(s) PO daily 08/06/2015 07/30/2016 Inactive levothyroxine 112 mcg tablet RxNorm: 103672 1 Tablet(s) PO daily 04/04/2015 10/30/2015 Inactive Vitamin D3 2,000 unit capsule RxNorm: 154703 1 Capsule(s) PO daily No Start Date Active aspirin 500 mg tablet RxNorm: 813068 1 Tablet(s) PO daily No Start Date Active Co Q-10 oral RxNorm: 20562 oral No Start Date Active Phenergan-Codeine 6.25 mg-10 mg/5 mL syrup RxNorm: 956901 5-10 Milliliter(s) PO Q6 as needed cough No Start Date 11/08/2017 Inactive Lipitor 20 mg tablet RxNorm: 629680 1 Tablet(s) PO daily No Start Date 09/14/2015 Inactive indapamide 1.25 mg tablet RxNorm: 531851 1 Tablet(s) PO daily No Start Date 12/02/2015 Inactive enalapril maleate 5 mg tablet RxNorm: 095482 1 Tablet(s) PO daily No Start Date 08/05/2015 Inactive levothyroxine 112 mcg tablet RxNorm: 326987 1 Tablet(s) PO daily No Start Date 04/03/2015 Inactive Medication Administered Medication Codes Instructions Start Date Status Kenalog 40 mg/mL suspension for injection RxNorm: 2024438 1Milliliter 01/27/2017 No longer Active Immunizations Vaccine Codes Date Status Influenza CVX: 141 07/27/2018 completed Influenza CVX: 141 08/04/2017 completed Influenza CVX: 141 07/15/2016 completed Pneumococcal CVX: 133 07/25/2015 completed Zoster CVX: 121 07/25/2015 completed Assessments Condition Codes Effective Dates Paroxysmal atrial fibrillation ICD-10: I48.0 ICD-9: 427.31 12/19/2018 Hypothyroidism, unspecified ICD-10: E03.9 ICD-9: 244.9 12/19/2018 [...] Reason For Visit Effective Dates Notes dizziness 12/19/2018 diabetes mellitus 10/26/2018 vaccination against influenza 07/27/2018 diabetes mellitus 07/20/2018 diabetes mellitus 04/14/2018 diabetes mellitus 02/06/2018 diabetes mellitus 01/12/2018 diabetes mellitus 08/04/2017 abdominal pain 07/19/2017 diabetes mellitus 05/05/2017 hypertension 01/27/2017 hypertension 07/15/2016 hypertension 03/16/2016 fatigue 09/15/2015 diabetes mellitus 03/17/2015 Results Observation Observation Code Item Item Code Result Date Tsh Ord6 TSH (3rd IS) 2.55 uIU/mL 10/27/2018 Free T4 Rve235 FREE T4 1.07 ng/dL 10/27/2018 Comp Metabolic Kxx481 NA 138 mEq/L 10/26/2018 Comp Metabolic Pqk332 K 4.3 mEq/L 10/26/2018 Comp Metabolic Qwt302 CL 102 mEq/L 10/26/2018 Comp Metabolic Bld996 CO2 26.0 mEq/L 10/26/2018 Comp Metabolic Cxm369 ANION GAP 14 10/26/2018 Comp Metabolic Jjv142 GLUCOSE 88 mg/dL 10/26/2018 Comp Metabolic Pbg142 Creat 0.9 mg/dL 10/26/2018 Comp Metabolic Ove732 eGFR 63 ml/min/1.73m2 10/26/2018 Comp Metabolic Zkj605 BUN 25 mg/dL 10/26/2018 Comp Metabolic Pam373 B/C Ratio 26.6 Ratio 10/26/2018 Comp Metabolic Tpr757 CALCIUM 10.1 mg/dL 10/26/2018 Comp Metabolic Ruj335 ALK PHOS 77 U/L 10/26/2018 Comp Metabolic Jtt557 AST(SGOT) 16 U/L 10/26/2018 Comp Metabolic Jnf290 ALT(SGPT) 16 U/L 10/26/2018 Comp Metabolic Ane837 BILI T 0.5 mg/dL 10/26/2018 Comp Metabolic Zai964 ALBUMIN 4.3 g/dL 10/26/2018 Comp Metabolic Onc252 TPRO 6.8 g/dL 10/26/2018 Comp Metabolic Yfg045 GLOB 2.5 g/dL 10/26/2018 Comp Metabolic Err562 A/G Ratio 1.7 Ratio 10/26/2018 Comp Metabolic Zvi822 Osmo 279 mOsmo 10/26/2018 %Hba1C Nsn754 % HbA1c 01132- 6 5.2 % 10/26/2018 %Hba1C Hou214 Gluc Ave 103 mg/dL 10/26/2018 Cbc With [...] 29.1 pg 10/26/2018 Cbc With Differential Ord2 [place]% 9.6 % 10/26/2018 Cbc With Differential Ord2 [...] 1.94 K/ul 10/26/2018 Cbc With Differential Ord2 [place] ABS# 0.6 K/ul 10/26/2018 Cbc With Differential Ord2 Eos ABS# 0.1 K/ul 10/26/2018 Cbc With Differential Ord2 Baso ABS# 0.0 K/ul 10/26/2018 Lipid Ord30 CHOL 238 mg/dL 10/26/2018 Lipid Ord30 HDL 42.0 mg/dl 10/26/2018 Lipid Ord30 TRIG 270 mg/dL 10/26/2018 Lipid Ord30 LDL 142 mg/dL 10/26/2018 Lipid Ord30 C/HDL 5.7 Ratio 10/26/2018 %Hba1C Rlv931 % HbA1c 53047- 6 5.3 % 07/20/2018 %Hba1C Ggm804 Gluc Ave 105 mg/dL 07/20/2018 Comp Metabolic Nyl584 NA 139 mEq/L 07/20/2018 Comp Metabolic Isf786 K 5.1 mEq/L 07/20/2018 Comp Metabolic Bmf776 CL 106 mEq/L 07/20/2018 Comp Metabolic Jnt730 CO2 19.0 mEq/L 07/20/2018 Comp Metabolic Vls764 ANION GAP 19 07/20/2018 Comp Metabolic Uts717 GLUCOSE 88 mg/dL 07/20/2018 Comp Metabolic Tjs025 Creat 0.8 mg/dL 07/20/2018 Comp Metabolic Lxp014 eGFR 77 ml/min/1.73m2 07/20/2018 Comp Metabolic Iof177 BUN 25 mg/dL 07/20/2018 Comp Metabolic Khs251 B/C Ratio 31.6 Ratio 07/20/2018 Comp Metabolic Fyt079 CALCIUM 10.0 mg/dL 07/20/2018 Comp Metabolic Xhh382 ALK PHOS 81 U/L 07/20/2018 Comp Metabolic Egz487 AST(SGOT) 26 U/L 07/20/2018 Comp Metabolic Cdx156 ALT(SGPT) 16 U/L 07/20/2018 Comp Metabolic Hht641 BILI T 0.5 mg/dL 07/20/2018 Comp Metabolic Ttj964 ALBUMIN 4.5 g/dL 07/20/2018 Comp Metabolic Sdp019 TPRO 7.2 g/dL 07/20/2018 Comp Metabolic Mhg903 GLOB 2.7 g/dL 07/20/2018 Comp Metabolic Yrc327 A/G Ratio 1.6 Ratio 07/20/2018 Comp Metabolic Lpa365 Osmo 281 mOsmo 07/20/2018 Free T4 Lsk359 FREE T4 1.00 ng/dL 07/20/2018 Tsh Ord6 TSH (3rd IS) 2.05 uIU/mL 07/20/2018 Vitamin D 25 Oh Kul5305 VITAMIN D, 25 HYDROXY 57.07 ng/mL 07/20/2018 Lipid Ord30 CHOL 242 mg/dL 07/20/2018 Lipid Ord30 HDL 43.0 mg/dl 07/20/2018 Lipid Ord30 TRIG 314 mg/dL 07/20/2018 Lipid Ord30 LDL 136 mg/dL 07/20/2018 Lipid Ord30 C/HDL 5.6 Ratio 07/20/2018 Free T4 Uxf822 FREE T4 1.24 ng/dL 04/14/2018 Tsh Ord6 TSH (3rd IS) 0.65 uIU/mL 04/14/2018 %Hba1C Ghb474 % HbA1c 69395- 6 5.1 % 01/12/2018 %Hba1C Epn383 Gluc Ave 100 mg/dL 01/12/2018 Free T4 Rbh068 FREE T4 0.97 ng/dL 01/12/2018 Lipid Ord30 [...] 29.7 pg 01/12/2018 Cbc With Differential Ord2 [place]% 10.3 % 01/12/2018 Cbc With Differential Ord2 [...] 2.40 K/ul 01/12/2018 Cbc With Differential Ord2 [place] ABS# 0.8 K/ul 01/12/2018 Cbc With Differential Ord2 Eos ABS# 0.2 K/ul 01/12/2018 Cbc With Differential Ord2 Baso ABS# 0.0 K/ul 01/12/2018 Comp Metabolic Ezz533 NA 138 mEq/L 01/12/2018 Comp Metabolic Gtm791 K 4.1 mEq/L 01/12/2018 Comp Metabolic Gfr960 CL 100 mEq/L 01/12/2018 Comp Metabolic Ahu726 CO2 28.0 mEq/L 01/12/2018 Comp Metabolic Lub269 ANION GAP 14 01/12/2018 Comp Metabolic Ktt441 GLUCOSE 84 mg/dL 01/12/2018 Comp Metabolic Pkp706 Creat 0.8 mg/dL 01/12/2018 Comp Metabolic Urd995 eGFR 78 ml/min/1.73m2 01/12/2018 Comp Metabolic Prg104 BUN 20 mg/dL 01/12/2018 Comp Metabolic Rmy974 B/C Ratio 25.6 Ratio 01/12/2018 Comp Metabolic Vkl114 CALCIUM 9.6 mg/dL 01/12/2018 Comp Metabolic Eok885 ALK PHOS 76 U/L 01/12/2018 Comp Metabolic Lea777 AST(SGOT) 16 U/L 01/12/2018 Comp Metabolic Nsl592 ALT(SGPT) 16 U/L 01/12/2018 Comp Metabolic Qxc395 BILI T 0.4 mg/dL 01/12/2018 Comp Metabolic Kqe092 ALBUMIN 4.1 g/dL 01/12/2018 Comp Metabolic Cod916 TPRO 6.7 g/dL 01/12/2018 Comp Metabolic Xhq160 GLOB 2.6 g/dL 01/12/2018 Comp Metabolic Ahs467 A/G Ratio 1.6 Ratio 01/12/2018 Comp Metabolic Mmv461 Osmo 277 mOsmo 01/12/2018 Free T4 Kxy902 FREE T4 1.40 ng/dL 08/05/2017 %Hba1C Dbw070 % HbA1c 97917- 6 5.0 % 08/05/2017 %Hba1C Xef562 Gluc Ave 97 mg/dL 08/05/2017 Cbc With [...] 29.5 pg 08/03/2017 Cbc With Differential Ord2 [place]% 9.3 % 08/03/2017 Cbc With Differential Ord2 [...] 2.10 K/ul 08/03/2017 Cbc With Differential Ord2 [place] ABS# 0.7 K/ul 08/03/2017 Cbc With Differential Ord2 Eos ABS# 0.1 K/ul 08/03/2017 Cbc With Differential Ord2 Baso ABS# 0.0 K/ul 08/03/2017 Vitamin D 25 Oh Nkn2714 VITAMIN D, 25 HYDROXY 52.73 ng/mL 08/03/2017 Lipid Ord30 CHOL 215 mg/dL 08/03/2017 Lipid Ord30 HDL 43.0 mg/dl 08/03/2017 Lipid Ord30 TRIG 278 mg/dL 08/03/2017 Lipid Ord30 LDL 116 mg/dL 08/03/2017 Lipid Ord30 C/HDL 5.0 Ratio 08/03/2017 Tsh Ord6 hTSH II 0.09 uIU/mL 08/03/2017 Comp Metabolic Aff771 NA 137 mEq/L 08/03/2017 Comp Metabolic Qhu023 K 4.3 mEq/L 08/03/2017 Comp Metabolic Aks160 CL 102 mEq/L 08/03/2017 Comp Metabolic Wmg446 CO2 24.0 mEq/L 08/03/2017 Comp Metabolic Ckk670 ANION GAP 15 08/03/2017 Comp Metabolic Bzn670 GLUCOSE 80 mg/dL 08/03/2017 Comp Metabolic Vyc850 Creat 0.9 mg/dL 08/03/2017 Comp Metabolic Ccj445 eGFR 68 ml/min/1.73m2 08/03/2017 Comp Metabolic Ene983 BUN 18 mg/dL 08/03/2017 Comp Metabolic Gcd239 B/C Ratio 20.5 Ratio 08/03/2017 Comp Metabolic Rzt990 CALCIUM 9.7 mg/dL 08/03/2017 Comp Metabolic Xvk745 ALK PHOS 68 U/L 08/03/2017 Comp Metabolic Krk236 AST(SGOT) 14 U/L 08/03/2017 Comp Metabolic Wqd222 ALT(SGPT) 14 U/L 08/03/2017 Comp Metabolic Omw080 BILI T 0.6 mg/dL 08/03/2017 Comp Metabolic Tlk770 ALBUMIN 4.0 g/dL 08/03/2017 Comp Metabolic Zwi959 TPRO 6.4 g/dL 08/03/2017 Comp Metabolic Boc266 GLOB 2.4 g/dL 08/03/2017 Comp Metabolic Sfc038 A/G Ratio 1.7 Ratio 08/03/2017 Comp Metabolic Ruk080 Osmo 275 mOsmo 08/03/2017 %Hba1C Azv724 % HbA1c 07202- 6 5.1 % 01/06/2017 %Hba1C Tjk352 Gluc Ave 100 mg/dL 01/06/2017 Lipid Ord30 CHOL 223 mg/dL 01/06/2017 Lipid Ord30 HDL 44.0 mg/dl 01/06/2017 Lipid Ord30 TRIG 292 mg/dL 01/06/2017 Lipid Ord30 LDL 121 mg/dL 01/06/2017 Lipid Ord30 C/HDL 5.1 Ratio 01/06/2017 Tsh Ord6 hTSH II 0.99 uIU/mL 01/06/2017 Free T4 Ohh528 FREE T4 0.96 ng/dL 01/06/2017 Cbc With [...] 29.6 pg 01/06/2017 Cbc With Differential Ord2 [place]% 9.2 % 01/06/2017 Cbc With Differential Ord2 [...] 1.85 K/ul 01/06/2017 Cbc With Differential Ord2 [place] ABS# 0.6 K/ul 01/06/2017 Cbc With Differential Ord2 Eos ABS# 0.1 K/ul 01/06/2017 Cbc With Differential Ord2 Baso ABS# 0.0 K/ul 01/06/2017 Vitamin D 25 Oh Eug4150 VITAMIN D, 25 HYDROXY 35.10 ng/mL 01/06/2017 Comp Metabolic Rrw264 NA 140 mEq/L 01/06/2017 Comp Metabolic Nmy730 K 4.3 mEq/L 01/06/2017 Comp Metabolic Lsg673 CL 103 mEq/L 01/06/2017 Comp Metabolic Abq212 CO2 29.0 mEq/L 01/06/2017 Comp Metabolic Oxj295 ANION GAP 12 01/06/2017 Comp Metabolic Hto413 GLUCOSE 86 mg/dL 01/06/2017 Comp Metabolic Ksg021 Creat 0.8 mg/dL 01/06/2017 Comp Metabolic Ola202 eGFR 82 ml/min/1.73m2 01/06/2017 Comp Metabolic Wbu839 BUN 19 mg/dL 01/06/2017 Comp Metabolic Cev169 B/C Ratio 25.3 Ratio 01/06/2017 Comp Metabolic Afj300 CALCIUM 9.6 mg/dL 01/06/2017 Comp Metabolic Gaq019 ALK PHOS 77 U/L 01/06/2017 Comp Metabolic Icj630 AST(SGOT) 16 U/L 01/06/2017 Comp Metabolic Fet996 ALT(SGPT) 18 U/L 01/06/2017 Comp Metabolic Yfy131 BILI T 0.4 mg/dL 01/06/2017 Comp Metabolic Tde972 ALBUMIN 4.1 g/dL 01/06/2017 Comp Metabolic Omh820 TPRO 6.7 g/dL 01/06/2017 Comp Metabolic Ocq110 GLOB 2.6 g/dL 01/06/2017 Comp Metabolic Rhb523 A/G Ratio 1.6 Ratio 01/06/2017 Comp Metabolic Uaa968 Osmo 281 mOsmo 01/06/2017 Vitamin D 25 Oh Aiw5870 VITAMIN D, 25 HYDROXY 42.77 ng/mL 07/09/2016 Free T4 Xpq435 FREE T4 1.23 ng/dL 07/08/2016 Comp Metabolic Yen025 NA 136 mEq/L 07/08/2016 Comp Metabolic Jjc882 K 4.1 mEq/L 07/08/2016 Comp Metabolic Uuz543 CL 103 mEq/L 07/08/2016 Comp Metabolic Xjh345 CO2 26.0 mEq/L 07/08/2016 Comp Metabolic Cze242 ANION GAP 11 07/08/2016 Comp Metabolic Czh255 GLUCOSE 83 mg/dL 07/08/2016 Comp Metabolic Jpl143 Creat 0.8 mg/dL 07/08/2016 Comp Metabolic Ynt876 eGFR 80 ml/min/1.73m2 07/08/2016 Comp Metabolic Pgm146 BUN 22 mg/dL 07/08/2016 Comp Metabolic Poz620 B/C Ratio 28.9 Ratio 07/08/2016 Comp Metabolic Nmk679 CALCIUM 9.8 mg/dL 07/08/2016 Comp Metabolic Uhm387 ALK PHOS 75 U/L 07/08/2016 Comp Metabolic Fvg024 AST(SGOT) 14 U/L 07/08/2016 Comp Metabolic Qwx044 ALT(SGPT) 15 U/L 07/08/2016 Comp Metabolic Cza509 BILI T 0.4 mg/dL 07/08/2016 Comp Metabolic Xir964 ALBUMIN 4.1 g/dL 07/08/2016 Comp Metabolic Ccl578 TPRO 6.6 g/dL 07/08/2016 Comp Metabolic Iyv897 GLOB 2.5 g/dL 07/08/2016 Comp Metabolic Dgs348 A/G Ratio 1.7 Ratio 07/08/2016 Comp Metabolic Bjd196 Osmo 274 mOsmo 07/08/2016 %Hba1C Bnq894 % HbA1c 51913- 6 5.4 % 07/08/2016 %Hba1C Jsk468 Gluc Ave 108 mg/dL 07/08/2016 Cbc With [...] 29.8 pg 07/08/2016 Cbc With Differential Ord2 [place]% 10.1 % 07/08/2016 Cbc With Differential Ord2 [...] 1.89 K/ul 07/08/2016 Cbc With Differential Ord2 [place] ABS# 0.7 K/ul 07/08/2016 Cbc With Differential Ord2 Eos ABS# 0.2 K/ul 07/08/2016 Cbc With Differential Ord2 Baso ABS# 0.0 K/ul 07/08/2016 Tsh Ord6 hTSH II 0.21 uIU/mL 07/08/2016 Lipid Ord30 CHOL 210 mg/dL 07/08/2016 Lipid Ord30 HDL 41.0 mg/dl 07/08/2016 Lipid Ord30 TRIG 257 mg/dL 07/08/2016 Lipid Ord30 LDL 118 mg/dL 07/08/2016 Lipid Ord30 C/HDL 5.1 Ratio 07/08/2016 Vitamin D 25 Oh Jhx7121 VITAMIN D, 25 HYDROXY 34.38 ng/mL 03/10/2016 %Hba1C Lpg467 % HbA1c 17706- 6 5.3 % 03/09/2016 %Hba1C Dnl811 Gluc Ave 105 mg/dL 03/09/2016 Comp Metabolic Gqo131 NA 137 mEq/L 03/09/2016 Comp Metabolic Yao468 K 4.5 mEq/L 03/09/2016 Comp Metabolic Wyl144 CL 104 mEq/L 03/09/2016 Comp Metabolic Axq308 CO2 27.0 mEq/L 03/09/2016 Comp Metabolic Zgd775 ANION GAP 11 03/09/2016 Comp Metabolic Riy063 GLUCOSE 86 mg/dL 03/09/2016 Comp Metabolic Bsp052 Creat 0.8 mg/dL 03/09/2016 Comp Metabolic Vty415 eGFR 81 ml/min/1.73m2 03/09/2016 Comp Metabolic Bgo405 BUN 23 mg/dL 03/09/2016 Comp Metabolic Yft085 B/C Ratio 30.3 Ratio 03/09/2016 Comp Metabolic Nnw879 CALCIUM 9.4 mg/dL 03/09/2016 Comp Metabolic Awp742 ALK PHOS 69 U/L 03/09/2016 Comp Metabolic Xyw387 AST(SGOT) 14 U/L 03/09/2016 Comp Metabolic Ybd403 ALT(SGPT) 14 U/L 03/09/2016 Comp Metabolic Dal706 BILI T 0.4 mg/dL 03/09/2016 Comp Metabolic Fje885 ALBUMIN 4.1 g/dL 03/09/2016 Comp Metabolic Qht123 TPRO 6.6 g/dL 03/09/2016 Comp Metabolic Dpx671 GLOB 2.5 g/dL 03/09/2016 Comp Metabolic Sfo301 A/G Ratio 1.6 Ratio 03/09/2016 Comp Metabolic Yop386 Osmo 277 mOsmo 03/09/2016 Tsh Ord6 hTSH [...] 28.9 pg 03/09/2016 Cbc With Differential Ord2 [place]% 11.1 % 03/09/2016 Cbc With Differential Ord2 [...] 2.16 K/ul 03/09/2016 Cbc With Differential Ord2 [place] ABS# 0.9 K/ul 03/09/2016 Cbc With Differential Ord2 Eos ABS# 0.1 K/ul 03/09/2016 Cbc With Differential Ord2 Baso ABS# 0.0 K/ul 03/09/2016 Lipid Ord30 CHOL 283 mg/dL 03/09/2016 Lipid Ord30 HDL 40.0 mg/dl 03/09/2016 Lipid Ord30 TRIG 271 mg/dL 03/09/2016 Lipid Ord30 LDL 189 mg/dL 03/09/2016 Lipid Ord30 C/HDL 7.1 Ratio 03/09/2016 Comp Metabolic Fhu596 NA 137 mEq/L 09/15/2015 Comp Metabolic Kuk180 K 4.4 mEq/L 09/15/2015 Comp Metabolic Wir439 CL 101 mEq/L 09/15/2015 Comp Metabolic Kyn662 CO2 28.0 mEq/L 09/15/2015 Comp Metabolic Yex070 ANION GAP 12 09/15/2015 Comp Metabolic Udo872 GLUCOSE 89 mg/dL 09/15/2015 Comp Metabolic Ojh412 Creat 0.8 mg/dL 09/15/2015 Comp Metabolic Iuf208 eGFR 73 ml/min/1.73m2 09/15/2015 Comp Metabolic Xif787 BUN 20 mg/dL 09/15/2015 Comp Metabolic Dei482 B/C Ratio 24.1 Ratio 09/15/2015 Comp Metabolic Urg314 CALCIUM 10.1 mg/dL 09/15/2015 Comp Metabolic Ixu461 ALK PHOS 72 U/L 09/15/2015 Comp Metabolic Wrf774 AST(SGOT) 16 U/L 09/15/2015 Comp Metabolic Bap879 ALT(SGPT) 15 U/L 09/15/2015 Comp Metabolic Euv568 BILI T 0.5 mg/dL 09/15/2015 Comp Metabolic Kmd588 ALBUMIN 4.4 g/dL 09/15/2015 Comp Metabolic Ftx582 TPRO 7.0 g/dL 09/15/2015 Comp Metabolic Hap658 GLOB 2.6 g/dL 09/15/2015 Comp Metabolic Huq214 A/G Ratio 1.7 Ratio 09/15/2015 Comp Metabolic Hlp491 Osmo 276 mOsmo 09/15/2015 Tsh Ord6 hTSH II 2.99 uIU/mL 09/15/2015 Vitamin D 25 Oh Yxd3941 VITAMIN D, 25 HYDROXY 30.19 ng/mL 09/15/2015 [...] Lipid Ord30 C/HDL 7.0 Ratio 09/15/2015 %Hba1C Qnw079 % HbA1c 89238- 6 5.2 % 09/15/2015 %Hba1C Gts612 Gluc Ave 103 mg/dL 09/15/2015 Review of Systems System Result Effective Dates Constitutional recent illness 12/19/2018 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 [...] accomodation 09/15/2015 None Full Exam - General 1995 Ears/Nose/Throat [...] Formatting Model/CDA Sections, Assigned to/Margarita Brock CPT-4: [id number] 07/27/2018 FLU VAC NO PRSV 4 SHANNON 3 YRS+ CPT-4: 11719 08/04/2017 ADMIN INFLUENZA VIRUS VAC CPT-4: G0008 08/04/2017 TRIAMCINOLONE ACET INJ NOS CPT-4: J3301 01/27/2017 THER/PROPH/DIAG INJ SC/IM CPT-4: 31481 01/27/2017 ADMIN INFLUENZA VIRUS VAC CPT-4: G0008 07/15/2016 FLU VACC 4 SHANNON 3 YRS PLUS IM SNOMED CT: [id number] CPT-4: 15684 07/15/2016 Vital Signs Date Vital 12/19/2018 Blood Pressure 1: 128/78 Code: 8480-6 Heart Rate 1: 96 bpm Height: 5'4" SpO2: 97% Weight: 10/26/2018 Blood Pressure 1: 132/76 Code: 8480-6 BMI: 34.5 Code: 02891-7 Heart Rate 1: 55 bpm Height: 5'4" SpO2: 99% Weight: 204 lbs 07/20/2018 Blood Pressure 1: 116/74 Code: 8480-6 BMI: 34.5 Code: 37751-3 Heart Rate 1: 52 bpm Height: 5'4" SpO2: 99% Weight: 204 lbs 04/14/2018 Blood Pressure 1: 128/76 Code: 8480-6 BMI: 34.5 Code: 21669-6 Heart Rate 1: 67 bpm Height: 5'4" SpO2: 95% Weight: 204 lbs 02/06/2018 Blood Pressure 1: 142/78 Code: 8480-6 BMI: 35.2 Code: 41824-5 Heart Rate 1: 58 bpm Height: 5'4" SpO2: 98% Weight: 208 lbs 01/12/2018 Blood Pressure 1: 132/82 Code: 8480-6 BMI: 34.8 Code: 72515-7 Height: 5'4" Weight: 206 lbs 08/04/2017 Blood Pressure 1: 140/82 Code: 8480-6 BMI: 31.9 Code: 86291-8 Heart Rate 1: 58 bpm Height: 5'4" SpO2: 99% Weight: 188 lbs 8 oz 07/19/2017 Blood Pressure 1: 136/76 Code: 8480-6 BMI: 32.0 Code: 57974-5 Heart Rate 1: 67 bpm Height: 5'4" SpO2: 97% Weight: 189 lbs 8 oz 05/05/2017 Blood Pressure 1: 142/80 Code: 8480-6 BMI: 32.4 Code: 53331-3 Heart Rate 1: 54 bpm Height: 5'4" SpO2: 98% Weight: 191 lbs 8 oz 01/27/2017 Blood Pressure 1: 132/82 Code: 8480-6 BMI: 34.1 Code: 27968-3 Heart Rate 1: 55 bpm Height: 5'4" SpO2: 99% Weight: 202 lbs 07/15/2016 Blood Pressure 1: 128/72 Code: 8480-6 BMI: 34.4 Code: 84004-0 Heart Rate 1: 50 bpm Height: 5'4" SpO2: 98% Weight: 203 lbs 8 oz 03/16/2016 Blood Pressure 1: 118/78 Code: 8480-6 BMI: 34.5 Code: 76355-1 Heart Rate 1: 55 bpm Height: 5'4" SpO2: 98% Weight: 204 lbs 09/15/2015 Blood Pressure 1: 134/72 Code: 8480-6 BMI: 34.6 Code: 87783-2 Heart Rate 1: 52 bpm Height: 5'4" SpO2: 99% Weight: 205 lbs 03/17/2015 Blood Pressure 1: 128/74 Code: 8480-6 BMI: 35.8 Code: 08111-7 Heart Rate 1: 59 bpm Height: 5'4" SpO2: 98% Weight: 212 lbs Functional Status No Functional Status data History of Present Illness Symptom Name Status Result Effective Date Notes Quality acute 12/19/2018 None Onset and Resolution [...] data Encounters Encounter Performer Location Codes Date ([id number]) 72736 EST. PATIENT, LEVEL IV Diagnosis: Paroxysmal atrial fibrillation[ICD10: I48.0] Diagnosis: Hypothyroidism, unspecified[ICD10: E03.9] Diagnosis: Essential (primary) hypertension[ICD10: I10] [facility] CPT-4: 02650 12/19/2018 ([id number]) 20251 EST. PATIENT, LEVEL IV Diagnosis: Essential (primary) hypertension[ICD10: I10] Diagnosis: Type 2 diabetes mellitus with diabetic polyneuropathy[ICD10: E11.42] Diagnosis: Hypothyroidism, unspecified[ICD10: E03.9] Diagnosis: Mixed hyperlipidemia[ICD10: E78.2] Diagnosis: Lumbago with sciatica, right side[ICD10: M54.41] [facility] CPT-4: 80239 10/26/2018 ([id number]) 28745 EST. PATIENT, LEVEL IV Diagnosis: Type 2 diabetes mellitus with diabetic polyneuropathy[ICD10: E11.42] Diagnosis: Mixed hyperlipidemia[ICD10: E78.2] Diagnosis: Essential (primary) hypertension[ICD10: I10] Diagnosis: Vitamin D deficiency, unspecified[ICD10: E55.9] Diagnosis: Hypothyroidism, unspecified[ICD10: E03.9] [facility] CPT-4: 08803 07/20/2018 ([id number]) 44274 EST. PATIENT, LEVEL IV Diagnosis: Essential (primary) hypertension[ICD10: I10] Diagnosis: Hypothyroidism, unspecified[ICD10: E03.9] Diagnosis: Mixed hyperlipidemia[ICD10: E78.2] Delmis Bermudez MD, [facility] CPT- 4: 14158 04/14/2018 ([id number]) 42306 EST. PATIENT, LEVEL III Diagnosis: Type 2 diabetes mellitus with diabetic polyneuropathy[ICD10: E11.42] Delmis Bermudez MD, [facility] CPT-4: 25489 02/06/2018 ([id number]) 83513 EST. PATIENT, LEVEL IV Diagnosis: Mixed hyperlipidemia[ICD10: E78.2] Diagnosis: Hypothyroidism, unspecified[ICD10: E03.9] Diagnosis: Type 2 diabetes mellitus without complications[ICD10: E11.9] Delmis Bermudez MD, [facility] CPT-4: 98410 01/12/2018 ([id number]) 63198 EST. PATIENT, LEVEL IV Diagnosis: Essential (primary) hypertension[ICD10: I10] Diagnosis: Mixed hyperlipidemia[ICD10: E78.2] Diagnosis: Hypothyroidism, unspecified[ICD10: E03.9] Diagnosis: Type 2 diabetes mellitus without complications[ICD10: E11.9] Diagnosis: Encounter for immunization[ICD10: Z23] Delmis Bermudez MD, [facility] CPT-4: 70041 08/04/2017 ([id number]) 09278 EST. PATIENT, LEVEL III Diagnosis: Diverticulitis of large intestine without perforation or abscess without bleeding[ICD10: K57.32] Delmis Bermudez MD, [facility] CPT-4: 31054 07/19/2017 ([id number]) 89177 EST. PATIENT, LEVEL III Diagnosis: Type 2 diabetes mellitus with diabetic polyneuropathy[ICD10: E11.42] Delmis Bermudez MD, [facility] CPT-4: 42981 05/05/2017 ([id number]) 55187 EST. PATIENT, LEVEL IV Diagnosis: Essential (primary) hypertension[ICD10: I10] Diagnosis: Type 2 diabetes mellitus without complications[ICD10: E11.9] Diagnosis: Mixed hyperlipidemia[ICD10: E78.2] Diagnosis: Allergic rhinitis due to pollen[ICD10: J30.1] Ria Bermudez MD, [facility] CPT-4: 41583 01/27/2017 ([id number]) 84910 EST. PATIENT, LEVEL IV Diagnosis: Type 2 diabetes mellitus without complications[ICD10: E11.9] Diagnosis: Essential (primary) hypertension[ICD10: I10] Diagnosis: Mixed hyperlipidemia[ICD10: E78.2] Ria Bermudez MD, [facility] CPT- 4: 30337 07/15/2016 ([id number]) 30897 EST. PATIENT, LEVEL IV Diagnosis: Type 2 diabetes mellitus without complications[ICD10: E11.9] Diagnosis: Polyneuropathy, unspecified[ICD10: G62.9] Diagnosis: Mixed hyperlipidemia[ICD10: E78.2] Ria Bermudez MD, [facility] CPT- 4: 93635 03/16/2016 ([id number]) 91030 EST. PATIENT, LEVEL IV Diagnosis: Type 2 diabetes mellitus without complications[ICD10: E11.9] Diagnosis: Essential (primary) hypertension[ICD10: I10] Diagnosis: Vitamin D deficiency, unspecified[ICD10: E55.9] Diagnosis: Mixed hyperlipidemia[ICD10: E78.2] Ria Bermudez MD, [facility] CPT- 4: 17459 09/15/2015 ([id number]) OFFICE VISIT, NEW - LEVEL 4 Diagnosis: ESSENTIAL HYPERTENSION[ICD9: 401.9] Diagnosis: Diabetes mellitus type 2, controlled[ICD9: 250.00] Diagnosis: Peripheral neuropathy[ICD9: 356.9] Delmis Bermudez MD, [facility] CPT- 4: 92455 03/17/2015 Plan of Care Planned Activity Notes Codes Status Date Visit Plan: Atrial Fibrillation -new onset-Dr Bermudez in to evaluate patient- will start patient on cardizem cd and eliquis -get EKG and labs today- schedule echo and refer to cardiology-instructed patient and her to go to ER if symptoms worsen or do not improve -patient and verbalized understanding of plan. Hypothyroidism-check labs today WEZ-labokuhcup-kzxiyjyb to monitor 12/19/2018 Visit Plan: Atrial Fibrillation -new onset-Dr Bermudez in to evaluate patient- will start patient on cardizem cd and eliquis -get EKG and labs today- schedule echo and refer to cardiology-instructed patient and her to go to ER if symptoms worsen or do not improve -patient and verbalized understanding of plan. Hypothyroidism-check labs today YKE-bskbxtcoei-aizrlgea to monitor 12/19/2018 Visit Plan: Atrial Fibrillation -new onset-Dr Bermudez in to evaluate patient- will start patient on cardizem cd and eliquis -get EKG and labs today- schedule echo and refer to cardiology-instructed patient and her to go to ER if symptoms worsen or do not improve -patient and verbalized understanding of plan. Hypothyroidism-check labs today BSO-ijxjovhrmb-yufldzmq to monitor 12/19/2018 Patient Education: Patient Medication Summary Completed 12/19/2018 Patient Education: Elibarryis - 18+ - No MARIBELL GARZA Completed 12/19/2018 Care Plan: Cbc With Differential Pending 12/19/2018 Care Plan: Comp Metabolic Pending 12/19/2018 Care Plan: Tsh Pending 12/19/2018 Care Plan: Free T4 Pending 12/19/2018 Care Plan: Referral Order SNOMED-CT : [id number] Pending 12/19/2018 Visit Plan: Hypertension - well [...] they worsen. 10/26/2018 [facility] [phone] [phone] [place] (15 min) Moderate 10/26/2018 Patient Education: Patient [...] control. 07/20/2018 App[facility]ment: [facility] [phone] [phone] [place] (15 min) Moderate 07/20/2018 Patient [...] start it 04/14/2018 Appointment: Delmis Her WPtel: [facility] [place] [address] (15 min) Moderate 04/14/2018 Patient Education: Patient Medication Summary Completed 04/14/2018 Visit Plan: Diabetic peripheral neuropathy -paperwork for diabetic shoes completed today in the office and will fax to Dr Briscoe's office- Patient verbalized understanding of plan. 02/06/2018 Appointment: Delmis Her WPtel[phone] (15 min) Moderate 02/06/2018 Patient Education: [...] of control. 01/12/2018 Appointment: Delmis Her WPtel: [phone] [phone] (30 min) Complex 01/12/2018 Patient Education: Patient [...] to medications. 08/04/2017 App[facility]ment: [facility] [phone] [phone] (30 min) Complex 08/04/2017 Patient Education: Patient Medication Summary Completed 08/04/2017 Patient Education: Obesity Completed 08/04/2017 Care Plan: %Hba1C LOINC : 01069-3 Pending 08/04/2017 Visit Plan: Diverticulitis - rx for antibiotic sent to pt's pharmacy - pt advised to avoid seeds, nuts, popcorn, or any other food which has been proven to upset the pt's stomach. Call if symptoms do not improve or if any worse and we will check labs and CT scan. Patient verbalized understanding of plan. 07/19/2017 Appointment: Delmis Her WPtel: [phone] [phone] (30 min) Complex 07/19/2017 Patient Education: Patient Medication Summary Completed 07/19/2017 Patient Education: Obesity Completed 07/19/2017 Visit Plan: Diabetic peripheral neuropathy - diabetes paperwork completed today in the office-patient does want to start medication-RX for gabapentin sent electronically and provided and instructed on use. Patient verbalized understanding of plan. 05/05/2017 Appointment: Delmis Her WPtel: [phone] [phone] (30 min) Complex 05/05/2017 Patient Education: Patient Medication Summary Completed 05/05/2017 Patient Education: Obesity Completed 05/05/2017 Appointment: Delmis Her WPtel: [phone] MCR - Annual Wellness Visit 01/28/2017 Visit Plan: [...] kenalog 01/27/2017 Appointment: Ria Bermudez WPtel: [phone] (15 min) Moderate 01/27/2017 Patient Education: Patient Medication Summary Completed 01/27/2017 Patient Education: Obesity Completed 01/27/2017 Appointment: Aidan Ria WPtel: [phone] [phone] (15 min) Moderate 01/11/2017 Visit Plan: Hypertension [...] liver response to me dications. 07/15/2016 Appointment: FentonRia WPtel: [phone] [phone] (15 min) Moderate 07/15/2016 Patient Education: Patient [...] time. 03/16/2016 Appointment: [phone] [facility] [place] (15 min) Moderate 03/16/2016 Patient Education: [...] are starting to become less controlled. Peripheral bnbyordwro-SG-yapdecqv foot exam today in the office and [...] are starting to become less controlled. Peripheral ivwuxbwnze-UN-xrhieaeg foot exam today in the office and [...] are starting to become less controlled. Peripheral ymmqljcyfx-MW-jrkfmkzr foot exam today in the office and paperwork completed for diabetic shoes-see scanned document 03/17/2015 Appointment: Ria Bermudez WPtel: [address] [place], [place] [phone] [place] (S) New Patient 03/17/2015 Patient Education: Patient Medication Summary Completed 03/17/2015 Patient Education: Hypertension Completed 03/17/2015 Referral: Lindsey Poole Referral Appointment Requested Instructions Comment DIABETIC FOOT EXAM DONE TODAY IN THE [...] are starting to become less controlled. Peripheral pntqnhsukk-ZN-rhizftcz foot exam today in the office and [...] are starting to become less controlled. Peripheral jrjaskqbsv-JR-bocdoowu foot exam today in the office and [...] are starting to become less controlled. Peripheral mztpatzwyv-ET-vnzyqfqf foot exam today in the office and [...] HOSPITAL ECHO -WE WILL SCHEDULE REFER TO TICKET DISPATCHER -DR POOLE . Atrial Fibrillation -new onset-Dr Bermudez in to evaluate patient- will start patient on cardizem cd and eliquis -get EKG and labs today- schedule echo and refer to cardiology-instructed patient and her to go to ER if symptoms worsen or do not improve -patient and verbalized understanding of plan. Hypothyroidism-check labs today SZI-entrrwwsfw-sknagbjx to monitor CARDIZEM CD 120MG DAILY ELIQUIS 5MG TWICE DAILY -SAMPLES PROVIDED EKG AND LABS TODAY AT THE HOSPITAL ECHO -WE WILL SCHEDULE REFER TO TICKET DISPATCHER -DR POOLE . Atrial Fibrillation -new onset-Dr Bermudez in to evaluate patient- will start patient on cardizem cd and eliquis -get EKG and labs today- schedule echo and refer to cardiology-instructed patient and her to go to ER if symptoms worsen or do not improve -patient and verbalized understanding of plan. Hypothyroidism-check labs today LPO-bragxqgqab-hdosniuo to monitor CARDIZEM CD 120MG DAILY ELIQUIS 5MG TWICE DAILY -SAMPLES PROVIDED EKG AND LABS TODAY AT THE HOSPITAL ECHO -WE WILL SCHEDULE REFER TO TICKET DISPATCHER -DR POOLE . Atrial Fibrillation -new onset-Dr Bermudez in to evaluate patient- will start patient on cardizem cd and eliquis -get EKG and labs today- schedule echo and refer to cardiology-instructed patient and her to go to ER if symptoms worsen or do not improve -patient and verbalized understanding of plan. Hypothyroidism-check labs today SRQ-jmwdmzxzdb-qdmjjcqp to monitor check labs today . Hypertension [...]
--- OUTSIDE RECORDS SUMMARY | 2019-04-04 07:11 | XMS REPORT | CCD ---
Author Author Delmis Her Organization Ria Bermudez MD, [facility] Address [address] [place] [address] Phone Care Team Providers Care Stable Hand Name Role Phone PP Unavailable CCM Unavailable Summary Purpose Interface Exchange Insurance Providers Payer name Policy type / Coverage type Covered libertarian ID Effective Begin Date Effective End Date WPS Medicare Part B Medicare Part B [id number] Unknown [facility] Medicare Part B [id number] Unknown Family history Son Diagnosis Age At [...] Unknown Retired 03/17/[address]: 676288252 Never smoker 03/17/[address]: 156807834 Never smoker 03/17/2015 Allergies, Adverse Reactions, Alerts Substance Reaction Codes Entered Date Inactivated Date Status * NO KNOWN FOOD ALLERGIES Unknown 03/17/2015 No Inactive Date Active ciprofloxacin RxNorm: 81678 03/17/2015 No Inactive Date Active Erythromycin RxNorm: 4053 03/17/2015 No Inactive Date Active Penicillin Unknown 03/17/2015 No Inactive Date Active [id number] REDUCTASE INHIBITORS myalgias, Unknown 03/16/2016 No Inactive [...] Fill Instructions Zetia 10 mg tablet RxNorm: 525926 1/2 Tablet(s) PO daily 12/19/2018 No Stop Date Active Cardizem CD 120 mg capsule,extended release RxNorm: 173033 1 Capsule(s) PO daily 12/19/2018 06/16/2019 Active Eliquis 5 mg tablet RxNorm: 1918063 1 Tablet(s) PO BID 12/19/2018 No Stop Date Active gabapentin 100 mg capsule RxNorm: 550672 TAKE ONE CAPSULE BY MOUTH EVERY NIGHT AT BEDTIME 12/11/2018 02/08/2019 Active levothyroxine 112 mcg tablet RxNorm: 460732 TAKE ONE TABLET BY MOUTH EVERY OTHER DAY ALTERNATE WITH 100MCG TABLET 12/07/2018 03/06/2019 Active Zetia 10 mg tablet RxNorm: 199248 1 Tablet(s) PO daily 10/26/2018 12/18/2018 Inactive Zetia 10 mg tablet RxNorm: 986325 1/2 Tablet(s) PO daily 07/20/2018 10/25/2018 Inactive indapamide 1.25 mg tablet RxNorm: 652531 Tablet(s) TAKE ONE TABLET BY MOUTH DAILY 07/19/2018 07/13/2019 Active levothyroxine 112 mcg tablet RxNorm: 512781 TAKE ONE TABLET BY MOUTH EVERY OTHER DAY ALTERNATE WITH 100MCG TABLET 07/19/2018 11/15/2018 Inactive gabapentin 100 mg capsule RxNorm: 388038 TAKE ONE CAPSULE BY MOUTH EVERY NIGHT AT BEDTIME 06/05/2018 09/02/2018 Inactive Zetia 10 mg tablet RxNorm: 823980 1 Tablet(s) PO daily 05/11/2018 07/19/2018 Inactive Zetia 10 mg tablet RxNorm: 337177 1 Tablet(s) PO daily 05/11/2018 05/10/2018 Inactive enalapril maleate 5 mg tablet RxNorm: 928680 TAKE ONE TABLET BY MOUTH DAILY 04/05/2018 12/30/2018 Active indapamide 1.25 mg tablet RxNorm: 184025 TAKE ONE TABLET BY MOUTH DAILY 04/05/2018 07/18/2018 Inactive levothyroxine 100 mcg tablet RxNorm: 167224 Tablet(s) TAKE ONE TABLET BY MOUTH EVERY OTHER DAY. ALTERNATE WITH 112 MCG TABLET. 01/24/2018 05/23/2018 Inactive levothyroxine 112 mcg tablet RxNorm: 423584 1 Tablet(s) PO every other day . ALTERNATE WITH 100 MCG TABLET. 01/24/2018 05/23/2018 Inactive Crestor 10 mg tablet RxNorm: 036095 1 Tablet(s) PO Q 01/24/2018 04/13/2018 Inactive Crestor 10 mg tablet RxNorm: 799791 1 Tablet(s) PO QHS 01/24/2018 01/23/2018 Inactive gabapentin 100 mg capsule RxNorm: 127715 TAKE ONE CAPSULE BY MOUTH EVERY NIGHT AT BEDTIME 01/05/2018 06/04/2018 Inactive indapamide 1.25 mg tablet RxNorm: 525773 TAKE ONE TABLET BY MOUTH DAILY 01/05/2018 04/04/2018 Inactive Zocor 20 mg tablet RxNorm: 634087 TAKE ONE TABLET BY MOUTH DAILY 12/02/2017 01/11/2018 Inactive Phenergan-Codeine 6.25 mg-10 mg/5 mL syrup RxNorm: 884414 5-10 Milliliter(s) PO Q6 as needed cough 11/09/2017 No Stop Date Active Tamiflu 75 mg capsule RxNorm: 569878 1 Capsule(s) PO BID 11/09/2017 11/13/2017 Inactive Tamiflu 75 mg capsule RxNorm: 150326 1 Capsule(s) PO BID 11/09/2017 11/08/2017 Inactive levothyroxine 100 mcg tablet RxNorm: 753991 TAKE ONE TABLET BY MOUTH DAILY 10/28/2017 01/23/2018 Inactive indapamide 1.25 mg tablet RxNorm: 596699 TAKE ONE TABLET BY MOUTH DAILY 09/09/2017 01/04/2018 Inactive levothyroxine 100 mcg tablet RxNorm: 229923 1 Tablet(s) PO daily TAKE ONE TABLET BY MOUTH DAILY 08/04/2017 10/27/2017 Inactive Flagyl 500 mg tablet RxNorm: 037288 1 Tablet(s) PO TID 07/19/2017 07/28/2017 Inactive enalapril maleate 5 mg tablet RxNorm: 851046 TAKE ONE TABLET BY MOUTH DAILY 06/30/2017 12/26/2017 Inactive indapamide 1.25 mg tablet RxNorm: 596085 TAKE ONE TABLET BY MOUTH DAILY 05/26/2017 09/08/2017 Inactive Zocor 20 mg tablet RxNorm: 699336 TAKE ONE TABLET BY MOUTH DAILY 05/26/2017 10/22/2017 Inactive gabapentin 100 mg capsule RxNorm: 760999 1 Capsule(s) PO QHS 05/05/2017 09/01/2017 Inactive Kenalog 40 mg/mL suspension for injection RxNorm: 6782124 1 Milliliter(s) Inj 01/27/2017 01/27/2017 Inactive levothyroxine 112 mcg tablet RxNorm: 574886 TAKE ONE TABLET BY MOUTH DAILY 01/17/2017 08/03/2017 Inactive Zocor 20 mg tablet RxNorm: 248262 TAKE ONE TABLET BY MOUTH DAILY 11/08/2016 05/06/2017 Inactive indapamide 1.25 mg tablet RxNorm: 683613 TAKE ONE TABLET BY MOUTH DAILY 11/08/2016 05/06/2017 Inactive enalapril maleate 5 mg tablet RxNorm: 034305 TAKE ONE TABLET BY MOUTH DAILY 09/01/2016 05/28/2017 Inactive indapamide 1.25 mg tablet RxNorm: 999944 TAKE ONE TABLET BY MOUTH DAILY 08/02/2016 10/30/2016 Inactive Vitamin D2 50,000 unit capsule RxNorm: 038078 1 Capsule(s) PO QW 07/15/2016 01/17/2018 Inactive indapamide 1.25 mg tablet RxNorm: 574600 TAKE ONE TABLET BY MOUTH DAILY 04/29/2016 07/27/2016 Inactive Vitamin D2 50,000 unit capsule RxNorm: 106834 1 Capsule(s) PO QW 03/16/2016 07/14/2016 Inactive Zocor 20 mg tablet RxNorm: 185500 1 Tablet(s) PO daily 03/16/2016 10/11/2016 Inactive levothyroxine 112 mcg tablet RxNorm: 892252 TAKE ONE TABLET BY MOUTH DAILY 01/07/2016 12/31/2016 Inactive indapamide 1.25 mg tablet RxNorm: 556534 1 Tablet(s) PO daily 12/03/2015 03/31/2016 Inactive Vitamin D2 50,000 unit capsule RxNorm: 815486 1 Capsule(s) PO QW 09/26/2015 09/25/2015 Inactive Lipitor 10 mg tablet RxNorm: 353133 1 Tablet(s) PO daily 09/26/2015 03/15/2016 Inactive Vitamin D2 50,000 unit capsule RxNorm: 137959 1 Capsule(s) PO QW 09/26/2015 03/15/2016 Inactive enalapril maleate 5 mg tablet RxNorm: 764451 1 Tablet(s) PO daily 08/06/2015 07/30/2016 Inactive levothyroxine 112 mcg tablet RxNorm: 908609 1 Tablet(s) PO daily 04/04/2015 10/30/2015 Inactive Vitamin D3 2,000 unit capsule RxNorm: 562865 1 Capsule(s) PO daily No Start Date Active aspirin 500 mg tablet RxNorm: 168127 1 Tablet(s) PO daily No Start Date Active Co Q-10 oral RxNorm: 42681 oral No Start Date Active Phenergan-Codeine 6.25 mg-10 mg/5 mL syrup RxNorm: 942005 5-10 Milliliter(s) PO Q6 as needed cough No Start Date 11/08/2017 Inactive Lipitor 20 mg tablet RxNorm: 378444 1 Tablet(s) PO daily No Start Date 09/14/2015 Inactive indapamide 1.25 mg tablet RxNorm: 404653 1 Tablet(s) PO daily No Start Date 12/02/2015 Inactive enalapril maleate 5 mg tablet RxNorm: 099373 1 Tablet(s) PO daily No Start Date 08/05/2015 Inactive levothyroxine 112 mcg tablet RxNorm: 383734 1 Tablet(s) PO daily No Start Date 04/03/2015 Inactive Medication Administered Medication Codes Instructions Start Date Status Kenalog 40 mg/mL suspension for injection RxNorm: 0923944 1Milliliter 01/27/2017 No longer Active Immunizations Vaccine [...] (3rd IS) 2.55 uIU/mL 10/27/2018 Free T4 Tcs711 FREE T4 1.07 ng/dL 10/27/2018 Comp Metabolic Aoq831 NA 138 mEq/L 10/26/2018 Comp Metabolic Fyf343 K 4.3 mEq/L 10/26/2018 Comp Metabolic Buh081 CL 102 mEq/L 10/26/2018 Comp Metabolic Nkm820 CO2 26.0 mEq/L 10/26/2018 Comp Metabolic Ugw297 ANION GAP 14 10/26/2018 Comp Metabolic Uhf680 GLUCOSE 88 mg/dL 10/26/2018 Comp Metabolic Jva833 Creat 0.9 mg/dL 10/26/2018 Comp Metabolic Waf654 eGFR 63 ml/min/1.73m2 10/26/2018 Comp Metabolic Dhj464 BUN 25 mg/dL 10/26/2018 Comp Metabolic Nog398 B/C Ratio 26.6 Ratio 10/26/2018 Comp Metabolic Ogf616 CALCIUM 10.1 mg/dL 10/26/2018 Comp Metabolic Zey170 ALK PHOS 77 U/L 10/26/2018 Comp Metabolic Lnx794 AST(SGOT) 16 U/L 10/26/2018 Comp Metabolic Org751 ALT(SGPT) 16 U/L 10/26/2018 Comp Metabolic Cli157 BILI T 0.5 mg/dL 10/26/2018 Comp Metabolic Zoe672 ALBUMIN 4.3 g/dL 10/26/2018 Comp Metabolic Ooz500 TPRO 6.8 g/dL 10/26/2018 Comp Metabolic Qtw276 GLOB 2.5 g/dL 10/26/2018 Comp Metabolic Xqs976 A/G Ratio 1.7 Ratio 10/26/2018 Comp Metabolic Uds570 Osmo 279 mOsmo 10/26/2018 %Hba1C Efh387 % HbA1c 53969- 6 5.2 % 10/26/2018 %Hba1C Vel494 Gluc Ave 103 mg/dL 10/26/2018 Cbc With [...] 29.1 pg 10/26/2018 Cbc With Differential Ord2 [place]% 9.6 % 10/26/2018 Cbc With Differential Ord2 [...] 1.94 K/ul 10/26/2018 Cbc With Differential Ord2 [place] ABS# 0.6 K/ul 10/26/2018 Cbc With Differential Ord2 Eos ABS# 0.1 K/ul 10/26/2018 Cbc With Differential Ord2 Baso ABS# 0.0 K/ul 10/26/2018 Lipid Ord30 CHOL 238 mg/dL 10/26/2018 Lipid Ord30 HDL 42.0 mg/dl 10/26/2018 Lipid Ord30 TRIG 270 mg/dL 10/26/2018 Lipid Ord30 LDL 142 mg/dL 10/26/2018 Lipid Ord30 C/HDL 5.7 Ratio 10/26/2018 %Hba1C Tix014 % HbA1c 87379- 6 5.3 % 07/20/2018 %Hba1C Wwi317 Gluc Ave 105 mg/dL 07/20/2018 Comp Metabolic Rgx114 NA 139 mEq/L 07/20/2018 Comp Metabolic Obp189 K 5.1 mEq/L 07/20/2018 Comp Metabolic Wxk991 CL 106 mEq/L 07/20/2018 Comp Metabolic Znc235 CO2 19.0 mEq/L 07/20/2018 Comp Metabolic Tjy800 ANION GAP 19 07/20/2018 Comp Metabolic Pln465 GLUCOSE 88 mg/dL 07/20/2018 Comp Metabolic Xhf941 Creat 0.8 mg/dL 07/20/2018 Comp Metabolic Inb733 eGFR 77 ml/min/1.73m2 07/20/2018 Comp Metabolic Urj614 BUN 25 mg/dL 07/20/2018 Comp Metabolic Vpk269 B/C Ratio 31.6 Ratio 07/20/2018 Comp Metabolic Fgz998 CALCIUM 10.0 mg/dL 07/20/2018 Comp Metabolic Ryy628 ALK PHOS 81 U/L 07/20/2018 Comp Metabolic Zse731 AST(SGOT) 26 U/L 07/20/2018 Comp Metabolic Opx652 ALT(SGPT) 16 U/L 07/20/2018 Comp Metabolic Wwp308 BILI T 0.5 mg/dL 07/20/2018 Comp Metabolic Bmm458 ALBUMIN 4.5 g/dL 07/20/2018 Comp Metabolic Mro322 TPRO 7.2 g/dL 07/20/2018 Comp Metabolic Tju779 GLOB 2.7 g/dL 07/20/2018 Comp Metabolic Qkn051 A/G Ratio 1.6 Ratio 07/20/2018 Comp Metabolic Oip312 Osmo 281 mOsmo 07/20/2018 Free T4 Aoo790 FREE T4 1.00 ng/dL 07/20/2018 Tsh Ord6 TSH (3rd IS) 2.05 uIU/mL 07/20/2018 Vitamin D 25 Oh Lia7756 VITAMIN D, 25 HYDROXY 57.07 ng/mL 07/20/2018 Lipid Ord30 CHOL 242 mg/dL 07/20/2018 Lipid Ord30 HDL 43.0 mg/dl 07/20/2018 Lipid Ord30 TRIG 314 mg/dL 07/20/2018 Lipid Ord30 LDL 136 mg/dL 07/20/2018 Lipid Ord30 C/HDL 5.6 Ratio 07/20/2018 Free T4 Jal811 FREE T4 1.24 ng/dL 04/14/2018 Tsh Ord6 TSH (3rd IS) 0.65 uIU/mL 04/14/2018 %Hba1C Yjb422 % HbA1c 76019- 6 5.1 % 01/12/2018 %Hba1C Ehd121 Gluc Ave 100 mg/dL 01/12/2018 Free T4 Pxk628 FREE T4 0.97 ng/dL 01/12/2018 Lipid Ord30 [...] 29.7 pg 01/12/2018 Cbc With Differential Ord2 [place]% 10.3 % 01/12/2018 Cbc With Differential Ord2 [...] 2.40 K/ul 01/12/2018 Cbc With Differential Ord2 [place] ABS# 0.8 K/ul 01/12/2018 Cbc With Differential Ord2 Eos ABS# 0.2 K/ul 01/12/2018 Cbc With Differential Ord2 Baso ABS# 0.0 K/ul 01/12/2018 Comp Metabolic Rbq990 NA 138 mEq/L 01/12/2018 Comp Metabolic Fqc945 K 4.1 mEq/L 01/12/2018 Comp Metabolic Zwg020 CL 100 mEq/L 01/12/2018 Comp Metabolic Ecn409 CO2 28.0 mEq/L 01/12/2018 Comp Metabolic Uio650 ANION GAP 14 01/12/2018 Comp Metabolic Mxv300 GLUCOSE 84 mg/dL 01/12/2018 Comp Metabolic Gog185 Creat 0.8 mg/dL 01/12/2018 Comp Metabolic Opt414 eGFR 78 ml/min/1.73m2 01/12/2018 Comp Metabolic Siq804 BUN 20 mg/dL 01/12/2018 Comp Metabolic Wjs762 B/C Ratio 25.6 Ratio 01/12/2018 Comp Metabolic Epi920 CALCIUM 9.6 mg/dL 01/12/2018 Comp Metabolic Sor588 ALK PHOS 76 U/L 01/12/2018 Comp Metabolic Pkh307 AST(SGOT) 16 U/L 01/12/2018 Comp Metabolic Mhu258 ALT(SGPT) 16 U/L 01/12/2018 Comp Metabolic Knd973 BILI T 0.4 mg/dL 01/12/2018 Comp Metabolic Mpo942 ALBUMIN 4.1 g/dL 01/12/2018 Comp Metabolic Qqc400 TPRO 6.7 g/dL 01/12/2018 Comp Metabolic Ddk120 GLOB 2.6 g/dL 01/12/2018 Comp Metabolic Nrx895 A/G Ratio 1.6 Ratio 01/12/2018 Comp Metabolic Vjn980 Osmo 277 mOsmo 01/12/2018 Free T4 Ukh925 FREE T4 1.40 ng/dL 08/05/2017 %Hba1C Djx433 % HbA1c 56354- 6 5.0 % 08/05/2017 %Hba1C Nwo334 Gluc Ave 97 mg/dL 08/05/2017 Cbc With [...] 29.5 pg 08/03/2017 Cbc With Differential Ord2 [place]% 9.3 % 08/03/2017 Cbc With Differential Ord2 [...] 2.10 K/ul 08/03/2017 Cbc With Differential Ord2 [place] ABS# 0.7 K/ul 08/03/2017 Cbc With Differential Ord2 Eos ABS# 0.1 K/ul 08/03/2017 Cbc With Differential Ord2 Baso ABS# 0.0 K/ul 08/03/2017 Vitamin D 25 Oh Xlp9497 VITAMIN D, 25 HYDROXY 52.73 ng/mL 08/03/2017 Lipid Ord30 CHOL 215 mg/dL 08/03/2017 Lipid Ord30 HDL 43.0 mg/dl 08/03/2017 Lipid Ord30 TRIG 278 mg/dL 08/03/2017 Lipid Ord30 LDL 116 mg/dL 08/03/2017 Lipid Ord30 C/HDL 5.0 Ratio 08/03/2017 Tsh Ord6 hTSH II 0.09 uIU/mL 08/03/2017 Comp Metabolic Kgu626 NA 137 mEq/L 08/03/2017 Comp Metabolic Sft420 K 4.3 mEq/L 08/03/2017 Comp Metabolic Wfm464 CL 102 mEq/L 08/03/2017 Comp Metabolic Olv842 CO2 24.0 mEq/L 08/03/2017 Comp Metabolic Xwk691 ANION GAP 15 08/03/2017 Comp Metabolic Mdw207 GLUCOSE 80 mg/dL 08/03/2017 Comp Metabolic Dup770 Creat 0.9 mg/dL 08/03/2017 Comp Metabolic Eyk252 eGFR 68 ml/min/1.73m2 08/03/2017 Comp Metabolic Haj911 BUN 18 mg/dL 08/03/2017 Comp Metabolic Moj319 B/C Ratio 20.5 Ratio 08/03/2017 Comp Metabolic Vgk048 CALCIUM 9.7 mg/dL 08/03/2017 Comp Metabolic Vtp457 ALK PHOS 68 U/L 08/03/2017 Comp Metabolic Jqa261 AST(SGOT) 14 U/L 08/03/2017 Comp Metabolic Swj822 ALT(SGPT) 14 U/L 08/03/2017 Comp Metabolic Uyq237 BILI T 0.6 mg/dL 08/03/2017 Comp Metabolic Ecj760 ALBUMIN 4.0 g/dL 08/03/2017 Comp Metabolic Nwm031 TPRO 6.4 g/dL 08/03/2017 Comp Metabolic Kwk371 GLOB 2.4 g/dL 08/03/2017 Comp Metabolic Wyr150 A/G Ratio 1.7 Ratio 08/03/2017 Comp Metabolic Umk738 Osmo 275 mOsmo 08/03/2017 %Hba1C Auy752 % HbA1c 45224- 6 5.1 % 01/06/2017 %Hba1C Hoh441 Gluc Ave 100 mg/dL 01/06/2017 Lipid Ord30 CHOL 223 mg/dL 01/06/2017 Lipid Ord30 HDL 44.0 mg/dl 01/06/2017 Lipid Ord30 TRIG 292 mg/dL 01/06/2017 Lipid Ord30 LDL 121 mg/dL 01/06/2017 Lipid Ord30 C/HDL 5.1 Ratio 01/06/2017 Tsh Ord6 hTSH II 0.99 uIU/mL 01/06/2017 Free T4 Gks124 FREE T4 0.96 ng/dL 01/06/2017 Cbc With [...] 29.6 pg 01/06/2017 Cbc With Differential Ord2 [place]% 9.2 % 01/06/2017 Cbc With Differential Ord2 [...] 1.85 K/ul 01/06/2017 Cbc With Differential Ord2 [place] ABS# 0.6 K/ul 01/06/2017 Cbc With Differential Ord2 Eos ABS# 0.1 K/ul 01/06/2017 Cbc With Differential Ord2 Baso ABS# 0.0 K/ul 01/06/2017 Vitamin D 25 Oh Vod4062 VITAMIN D, 25 HYDROXY 35.10 ng/mL 01/06/2017 Comp Metabolic Dsa540 NA 140 mEq/L 01/06/2017 Comp Metabolic Kou285 K 4.3 mEq/L 01/06/2017 Comp Metabolic Sdm926 CL 103 mEq/L 01/06/2017 Comp Metabolic Pqz928 CO2 29.0 mEq/L 01/06/2017 Comp Metabolic Zqe817 ANION GAP 12 01/06/2017 Comp Metabolic Blg535 GLUCOSE 86 mg/dL 01/06/2017 Comp Metabolic Uch946 Creat 0.8 mg/dL 01/06/2017 Comp Metabolic Gca305 eGFR 82 ml/min/1.73m2 01/06/2017 Comp Metabolic Gay591 BUN 19 mg/dL 01/06/2017 Comp Metabolic Qjm933 B/C Ratio 25.3 Ratio 01/06/2017 Comp Metabolic Hhj075 CALCIUM 9.6 mg/dL 01/06/2017 Comp Metabolic Efh906 ALK PHOS 77 U/L 01/06/2017 Comp Metabolic Zwh414 AST(SGOT) 16 U/L 01/06/2017 Comp Metabolic Yfg790 ALT(SGPT) 18 U/L 01/06/2017 Comp Metabolic Pxm978 BILI T 0.4 mg/dL 01/06/2017 Comp Metabolic Hlv926 ALBUMIN 4.1 g/dL 01/06/2017 Comp Metabolic Ahv897 TPRO 6.7 g/dL 01/06/2017 Comp Metabolic Tgu544 GLOB 2.6 g/dL 01/06/2017 Comp Metabolic Hme559 A/G Ratio 1.6 Ratio 01/06/2017 Comp Metabolic Rwg460 Osmo 281 mOsmo 01/06/2017 Vitamin D 25 Oh Idf8358 VITAMIN D, 25 HYDROXY 42.77 ng/mL 07/09/2016 Free T4 Lce848 FREE T4 1.23 ng/dL 07/08/2016 Comp Metabolic Gcz474 NA 136 mEq/L 07/08/2016 Comp Metabolic Grl297 K 4.1 mEq/L 07/08/2016 Comp Metabolic Tjl371 CL 103 mEq/L 07/08/2016 Comp Metabolic Glm539 CO2 26.0 mEq/L 07/08/2016 Comp Metabolic Vct744 ANION GAP 11 07/08/2016 Comp Metabolic Rpg278 GLUCOSE 83 mg/dL 07/08/2016 Comp Metabolic Aui132 Creat 0.8 mg/dL 07/08/2016 Comp Metabolic Yyl208 eGFR 80 ml/min/1.73m2 07/08/2016 Comp Metabolic Wwr910 BUN 22 mg/dL 07/08/2016 Comp Metabolic Xkb617 B/C Ratio 28.9 Ratio 07/08/2016 Comp Metabolic Fta634 CALCIUM 9.8 mg/dL 07/08/2016 Comp Metabolic Ftj466 ALK PHOS 75 U/L 07/08/2016 Comp Metabolic Tvc606 AST(SGOT) 14 U/L 07/08/2016 Comp Metabolic Zqm214 ALT(SGPT) 15 U/L 07/08/2016 Comp Metabolic Soe367 BILI T 0.4 mg/dL 07/08/2016 Comp Metabolic Fbc050 ALBUMIN 4.1 g/dL 07/08/2016 Comp Metabolic Ccu223 TPRO 6.6 g/dL 07/08/2016 Comp Metabolic Bsq453 GLOB 2.5 g/dL 07/08/2016 Comp Metabolic Dol374 A/G Ratio 1.7 Ratio 07/08/2016 Comp Metabolic Tms765 Osmo 274 mOsmo 07/08/2016 %Hba1C Wzb470 % HbA1c 11714- 6 5.4 % 07/08/2016 %Hba1C Hvn430 Gluc Ave 108 mg/dL 07/08/2016 Cbc With [...] 29.8 pg 07/08/2016 Cbc With Differential Ord2 [place]% 10.1 % 07/08/2016 Cbc With Differential Ord2 [...] 1.89 K/ul 07/08/2016 Cbc With Differential Ord2 [place] ABS# 0.7 K/ul 07/08/2016 Cbc With Differential Ord2 Eos ABS# 0.2 K/ul 07/08/2016 Cbc With Differential Ord2 Baso ABS# 0.0 K/ul 07/08/2016 Tsh Ord6 hTSH II 0.21 uIU/mL 07/08/2016 Lipid Ord30 CHOL 210 mg/dL 07/08/2016 Lipid Ord30 HDL 41.0 mg/dl 07/08/2016 Lipid Ord30 TRIG 257 mg/dL 07/08/2016 Lipid Ord30 LDL 118 mg/dL 07/08/2016 Lipid Ord30 C/HDL 5.1 Ratio 07/08/2016 Vitamin D 25 Oh Ukl1893 VITAMIN D, 25 HYDROXY 34.38 ng/mL 03/10/2016 %Hba1C Qya205 % HbA1c 36615- 6 5.3 % 03/09/2016 %Hba1C Tro695 Gluc Ave 105 mg/dL 03/09/2016 Comp Metabolic Nxq073 NA 137 mEq/L 03/09/2016 Comp Metabolic Vqv856 K 4.5 mEq/L 03/09/2016 Comp Metabolic Waz578 CL 104 mEq/L 03/09/2016 Comp Metabolic Zsy633 CO2 27.0 mEq/L 03/09/2016 Comp Metabolic Dcw742 ANION GAP 11 03/09/2016 Comp Metabolic Iqy679 GLUCOSE 86 mg/dL 03/09/2016 Comp Metabolic Ben303 Creat 0.8 mg/dL 03/09/2016 Comp Metabolic Ete455 eGFR 81 ml/min/1.73m2 03/09/2016 Comp Metabolic Qvm027 BUN 23 mg/dL 03/09/2016 Comp Metabolic Rwr667 B/C Ratio 30.3 Ratio 03/09/2016 Comp Metabolic Fio076 CALCIUM 9.4 mg/dL 03/09/2016 Comp Metabolic Qpv027 ALK PHOS 69 U/L 03/09/2016 Comp Metabolic Npd778 AST(SGOT) 14 U/L 03/09/2016 Comp Metabolic Jja603 ALT(SGPT) 14 U/L 03/09/2016 Comp Metabolic Ais413 BILI T 0.4 mg/dL 03/09/2016 Comp Metabolic Ctm269 ALBUMIN 4.1 g/dL 03/09/2016 Comp Metabolic Mmc252 TPRO 6.6 g/dL 03/09/2016 Comp Metabolic Vbi601 GLOB 2.5 g/dL 03/09/2016 Comp Metabolic Dfb724 A/G Ratio 1.6 Ratio 03/09/2016 Comp Metabolic Wwd278 Osmo 277 mOsmo 03/09/2016 Tsh Ord6 hTSH [...] 28.9 pg 03/09/2016 Cbc With Differential Ord2 [place]% 11.1 % 03/09/2016 Cbc With Differential Ord2 [...] 2.16 K/ul 03/09/2016 Cbc With Differential Ord2 [place] ABS# 0.9 K/ul 03/09/2016 Cbc With Differential Ord2 Eos ABS# 0.1 K/ul 03/09/2016 Cbc With Differential Ord2 Baso ABS# 0.0 K/ul 03/09/2016 Lipid Ord30 CHOL 283 mg/dL 03/09/2016 Lipid Ord30 HDL 40.0 mg/dl 03/09/2016 Lipid Ord30 TRIG 271 mg/dL 03/09/2016 Lipid Ord30 LDL 189 mg/dL 03/09/2016 Lipid Ord30 C/HDL 7.1 Ratio 03/09/2016 Comp Metabolic Hzr975 NA 137 mEq/L 09/15/2015 Comp Metabolic Yhv226 K 4.4 mEq/L 09/15/2015 Comp Metabolic Zre190 CL 101 mEq/L 09/15/2015 Comp Metabolic Abx915 CO2 28.0 mEq/L 09/15/2015 Comp Metabolic Cqz364 ANION GAP 12 09/15/2015 Comp Metabolic Ufd989 GLUCOSE 89 mg/dL 09/15/2015 Comp Metabolic Stw172 Creat 0.8 mg/dL 09/15/2015 Comp Metabolic Uyg484 eGFR 73 ml/min/1.73m2 09/15/2015 Comp Metabolic Xjd193 BUN 20 mg/dL 09/15/2015 Comp Metabolic Zpe801 B/C Ratio 24.1 Ratio 09/15/2015 Comp Metabolic Csr511 CALCIUM 10.1 mg/dL 09/15/2015 Comp Metabolic Aqg584 ALK PHOS 72 U/L 09/15/2015 Comp Metabolic Snf816 AST(SGOT) 16 U/L 09/15/2015 Comp Metabolic Uun352 ALT(SGPT) 15 U/L 09/15/2015 Comp Metabolic Qhu667 BILI T 0.5 mg/dL 09/15/2015 Comp Metabolic Pyw786 ALBUMIN 4.4 g/dL 09/15/2015 Comp Metabolic Xnf034 TPRO 7.0 g/dL 09/15/2015 Comp Metabolic Zrr306 GLOB 2.6 g/dL 09/15/2015 Comp Metabolic Bec755 A/G Ratio 1.7 Ratio 09/15/2015 Comp Metabolic Bhr611 Osmo 276 mOsmo 09/15/2015 Tsh Ord6 hTSH II 2.99 uIU/mL 09/15/2015 Vitamin D 25 Oh Vus6196 VITAMIN D, 25 HYDROXY 30.19 ng/mL 09/15/2015 [...] Lipid Ord30 C/HDL 7.0 Ratio 09/15/2015 %Hba1C Tey604 % HbA1c 09511- 6 5.2 % 09/15/2015 %Hba1C Hyq126 Gluc Ave 103 mg/dL 09/15/2015 Review of [...] Formatting Model/CDA Sections, Assigned to/Margarita Brock CPT-4: 96279Hpojmzt 07/27/2018 FLU VAC NO PRSV 4 SHANNON 3 YRS+ CPT-4: 71423 08/04/2017 ADMIN INFLUENZA VIRUS VAC CPT-4: G0008 08/04/2017 TRIAMCINOLONE ACET INJ NOS CPT-4: J3301 01/27/2017 THER/PROPH/DIAG INJ SC/IM CPT-4: 19198 01/27/2017 ADMIN INFLUENZA VIRUS VAC CPT-4: G0008 07/15/2016 FLU VACC 4 SHANNON 3 YRS PLUS IM SNOMED CT: 82788940 CPT-4: 48783 07/15/2016 Vital Signs Date Vital 12/19/2018 Blood Pressure 1: 128/78 Code: 8480-6 Heart Rate 1: 96 bpm Height: 5'4" SpO2: 97% Weight: 10/26/2018 Blood Pressure 1: 132/76 Code: 8480-6 BMI: 34.5 Code: 55930-6 Heart Rate 1: 55 bpm Height: 5'4" SpO2: 99% Weight: 204 lbs 07/20/2018 Blood Pressure 1: 116/74 Code: 8480-6 BMI: 34.5 Code: 93203-6 Heart Rate 1: 52 bpm Height: 5'4" SpO2: 99% Weight: 204 lbs 04/14/2018 Blood Pressure 1: 128/76 Code: 8480-6 BMI: 34.5 Code: 97275-7 Heart Rate 1: 67 bpm Height: 5'4" SpO2: 95% Weight: 204 lbs 02/06/2018 Blood Pressure 1: 142/78 Code: 8480-6 BMI: 35.2 Code: 21390-7 Heart Rate 1: 58 bpm Height: 5'4" SpO2: 98% Weight: 208 lbs 01/12/2018 Blood Pressure 1: 132/82 Code: 8480-6 BMI: 34.8 Code: 72050-8 Height: 5'4" Weight: 206 lbs 08/04/2017 Blood Pressure 1: 140/82 Code: 8480-6 BMI: 31.9 Code: 06941-7 Heart Rate 1: 58 bpm Height: 5'4" SpO2: 99% Weight: 188 lbs 8 oz 07/19/2017 Blood Pressure 1: 136/76 Code: 8480-6 BMI: 32.0 Code: 25802-1 Heart Rate 1: 67 bpm Height: 5'4" SpO2: 97% Weight: 189 lbs 8 oz 05/05/2017 Blood Pressure 1: 142/80 Code: 8480-6 BMI: 32.4 Code: 72306-6 Heart Rate 1: 54 bpm Height: 5'4" SpO2: 98% Weight: 191 lbs 8 oz 01/27/2017 Blood Pressure 1: 132/82 Code: 8480-6 BMI: 34.1 Code: 75429-8 Heart Rate 1: 55 bpm Height: 5'4" SpO2: 99% Weight: 202 lbs 07/15/2016 Blood Pressure 1: 128/72 Code: 8480-6 BMI: 34.4 Code: 12455-4 Heart Rate 1: 50 bpm Height: 5'4" SpO2: 98% Weight: 203 lbs 8 oz 03/16/2016 Blood Pressure 1: 118/78 Code: 8480-6 BMI: 34.5 Code: 13353-8 Heart Rate 1: 55 bpm Height: 5'4" SpO2: 98% Weight: 204 lbs 09/15/2015 Blood Pressure 1: 134/72 Code: 8480-6 BMI: 34.6 Code: 14272-0 Heart Rate 1: 52 bpm Height: 5'4" SpO2: 99% Weight: 205 lbs 03/17/2015 Blood Pressure 1: 128/74 Code: 8480-6 BMI: 35.8 Code: 94445-0 Heart Rate 1: 59 bpm Height: 5'4" [...] data Encounters Encounter Performer Location Codes Date ([id number]) [id number] EST. PATIENT, LEVEL IV Diagnosis: Paroxysmal atrial fibrillation[ICD10: I48.0] Diagnosis: Hypothyroidism, unspecified[ICD10: E03.9] Diagnosis: Essential (primary) hypertension[ICD10: I10] [facility] CPT-4: 47967 12/19/2018 ([id number]) [id number] EST. PATIENT, LEVEL IV Diagnosis: Essential (primary) hypertension[ICD10: I10] Diagnosis: Type 2 diabetes mellitus with diabetic polyneuropathy[ICD10: E11.42] Diagnosis: Hypothyroidism, unspecified[ICD10: E03.9] Diagnosis: Mixed hyperlipidemia[ICD10: E78.2] Diagnosis: Lumbago with sciatica, right side[ICD10: M54.41] [facility] CPT-4: 74871 10/26/2018 ([id number]) 25481 EST. PATIENT, LEVEL IV Diagnosis: Type 2 diabetes mellitus with diabetic polyneuropathy[ICD10: E11.42] Diagnosis: Mixed hyperlipidemia[ICD10: E78.2] Diagnosis: Essential (primary) hypertension[ICD10: I10] Diagnosis: Vitamin D deficiency, unspecified[ICD10: E55.9] Diagnosis: Hypothyroidism, unspecified[ICD10: E03.9] [facility] CPT-4: 24288 07/20/2018 ([id number]) [id number] EST. PATIENT, LEVEL IV Diagnosis: Essential (primary) hypertension[ICD10: I10] Diagnosis: Hypothyroidism, unspecified[ICD10: E03.9] Diagnosis: Mixed hyperlipidemia[ICD10: E78.2] Delmis [facility]ermudez MD, [facility] CPT- 4: 13394 04/14/2018 ([id number]) [id number] EST. PATIENT, LEVEL III Diagnosis: Type 2 diabetes mellitus with diabetic polyneuropathy[ICD10: E11.42] Delmis Bermudez MD, [facility] CPT-4: 29852 02/06/2018 ([id number]) 70905 EST. PATIENT, LEVEL IV Diagnosis: Mixed hyperlipidemia[ICD10: E78.2] Diagnosis: Hypothyroidism, unspecified[ICD10: E03.9] Diagnosis: Type 2 diabetes mellitus without complications[ICD10: E11.9] Del[facility] Bermudez MD, [facility] [facility]ITAL CPT-4: 81930 01/12/2018 ([id number]) 19100 EST. PATIENT, LEVEL IV Diagnosis: Essential (primary) hypertension[ICD10: I10] Diagnosis: Mixed hyperlipidemia[ICD10: E78.2] Diagnosis: Hypothyroidism, unspecified[ICD10: E03.9] Diagnosis: Type 2 diabetes mellitus without complications[ICD10: E11.9] Diagnosis: Encounter for immunization[ICD10: Z23] Delmis Bermudez MD, [facility] CPT-4: 50935 08/04/2017 ([id number]) 44539 EST. PATIENT, LEVEL III Diagnosis: Diverticulitis of large intestine without perforation or abscess without bleeding[ICD10: K57.32] Delmis Bermudez MD, [facility] CPT-4: 74102 07/19/2017 ([id number]) 22522 EST. PATIENT, LEVEL III Diagnosis: Type 2 diabetes mellitus with diabetic polyneuropathy[ICD10: E11.42] Delmis Bermudez MD, [facility] CPT-4: 93678 05/05/2017 ([id number]) 47583 EST. PATIENT, LEVEL IV Diagnosis: Essential (primary) hypertension[ICD10: I10] Diagnosis: Type 2 diabetes mellitus without complications[ICD10: E11.9] Diagnosis: Mixed hyperlipidemia[ICD10: E78.2] Diagnosis: Allergic rhinitis due to pollen[ICD10: J30.1] Ria Bermudez MD, [facility] CPT-4: 99468 01/27/2017 ([id number]) 43429 EST. PATIENT, LEVEL IV Diagnosis: Type 2 diabetes mellitus without complications[ICD10: E11.9] Diagnosis: Essential (primary) hypertension[ICD10: I10] Diagnosis: Mixed hyperlipidemia[ICD10: E78.2] Ria Bermudez MD, [facility] CPT- 4: 49839 07/15/2016 ([id number]) 80677 EST. PATIENT, LEVEL IV Diagnosis: Type 2 diabetes mellitus without complications[ICD10: E11.9] Diagnosis: Polyneuropathy, unspecified[ICD10: G62.9] Diagnosis: Mixed hyperlipidemia[ICD10: E78.2] Ria Bermudez MD, [facility] CPT- 4: 98350 03/16/2016 ([id number]) 77669 EST. PATIENT, LEVEL IV Diagnosis: Type 2 diabetes mellitus without complications[ICD10: E11.9] Diagnosis: Essential (primary) hypertension[ICD10: I10] Diagnosis: Vitamin D deficiency, unspecified[ICD10: E55.9] Diagnosis: Mixed hyperlipidemia[ICD10: E78.2] Ria Bermudez MD, [facility] CPT- 4: 33802 09/15/2015 ([id number]) OFFICE VISIT, NEW - LEVEL 4 Diagnosis: ESSENTIAL HYPERTENSION[ICD9: 401.9] Diagnosis: Diabetes mellitus type 2, controlled[ICD9: 250.00] Diagnosis: Peripheral neuropathy[ICD9: 356.9] Delmis Bermudez MD, [facility] CPT- 4: 98357 03/17/2015 Plan of Care Planned Activity Notes Codes Status Date Visit Plan: Atrial Fibrillation -new onset-Dr Bermudez in to evaluate patient- will start patient on cardizem cd and eliquis -get EKG and labs today- schedule echo and refer to cardiology-instructed patient and her to go to ER if symptoms worsen or do not improve -patient and verbalized understanding of plan. Hypothyroidism-check labs today YKS-bfyxztqlau-eyzkpwxz to monitor 12/19/2018 Visit Plan: Atrial Fibrillation -new onset-Dr Bermudez in to evaluate patient- will start patient on cardizem cd and eliquis -get EKG and labs today- schedule echo and refer to cardiology-instructed patient and her to go to ER if symptoms worsen or do not improve -patient and verbalized understanding of plan. Hypothyroidism-check labs today IIM-unfovkhgsy-jpyeerxd to monitor 12/19/2018 Patient Education: Patient Medication Summary Completed 12/19/2018 Patient Education: Eliquis - 18+ - No HI MA NE Completed 12/19/2018 Care Plan: Cbc With Differential Pending 12/19/2018 Care Plan: Comp Metabolic Pending 12/19/2018 Care Plan: Tsh Pending 12/19/2018 Care Plan: Free T4 Pending 12/19/2018 Care Plan: Referral Order SNOMED-CT : [id number] Pending 12/19/2018 Visit Plan: Hypertension - well [...] worsen. 10/26/2018 [phone] [phone] (15 min) Moderate 10/26/2018 Patient Education: Patient [...] control. 07/20/2018 Appointment: [phone] [phone] (15 min) Moderate 07/20/2018 Patient Education: Patient [...] it 04/14/2018 Appointment: Delmis Her WPtel: [phone] [phone] (15 min) Moderate 04/14/2018 Patient Education: Patient Medication Summary Completed 04/14/2018 Visit Plan: Diabetic peripheral neuropathy -paperwork for diabetic shoes completed today in the office and will fax to Dr Briscoe's office- Patient verbalized understanding of plan. 02/06/2018 Appointment: Delmis Her WPtel: [phone] [phone] (15 min) Moderate 02/06/2018 Patient Education: Patient [...] control. 01/12/2018 [facility]ment: [phone] [phone] (30 min) Complex 01/12/2018 Patient Education: Patient [...] medications. 08/04/2017 Appointment: Delmis Her WPtel: [phone] [phone] (30 min) Complex 08/04/2017 Patient Education: Patient Medication Summary Completed 08/04/2017 Patient Education: Obesity Completed 08/04/2017 Care Plan: %Hba1C LOINC : 59001-2 Pending 08/04/2017 Visit Plan: Diverticulitis - rx for antibiotic sent to pt's pharmacy - pt advised to avoid seeds, nuts, popcorn, or any other food which has been proven to upset the pt's stomach. Call if symptoms do not improve or if any worse and we will check labs and CT scan. Patient verbalized understanding of plan. 07/19/2017 App[facility]ment: [facility] [phone] [phone] (30 min) Complex 07/19/2017 Patient Education: Patient Medication Summary Completed 07/19/2017 Patient Education: Obesity Completed 07/19/2017 Visit Plan: Diabetic peripheral neuropathy - diabetes paperwork completed today in the office-patient does want to start medication-RX for gabapentin sent electronically and provided and instructed on use. Patient verbalized understanding of plan. 05/05/2017 Appointment: Delmis Her WPtel: [phone] (30 min) Complex 05/05/2017 Patient Education: Patient Medication Summary Completed 05/05/2017 Patient Education: Obesity Completed 05/05/2017 Appointment: Delmis Her WPtel: [facility] [phone] [facility] - Annual Wellness Visit 01/28/2017 [...] of kenalog 01/27/2017 Appointment: Ria Bermudez WPtel: [phone] (15 min) Moderate 01/27/2017 Patient Education: Patient Medication Summary Completed 01/27/2017 Patient Education: Obesity Completed 01/27/2017 Appointment: Ria Bermudez WPtel: [address] [place], [place] [phone] (15 min) Moderate 01/11/2017 Visit Plan: Hypertension [...] dications. 07/15/2016 Appointment: Ria Bermudez WPtel: [phone] [phone] (15 min) Moderate 07/15/2016 Patient Education: [...] time. 03/16/2016 Appointment: [phone] (15 min) Moderate 03/16/2016 Patient Education: Patient [...] are starting to become less controlled. Peripheral wnfvdirgzr-UP-ukgpkcbp foot exam today in the office and [...] are starting to become less controlled. Peripheral vvyfrysrga-QB-zjzveqsn foot exam today in the office and [...] are starting to become less controlled. Peripheral qsjpkbuupt-SP-ccypradn foot exam today in the office and paperwork completed for diabetic shoes-see scanned document 03/17/2015 Appointment: [facility]el[phone] [facility] [place] New Patient 03/17/2015 Patient Education: [...] are starting to become less controlled. Peripheral lrmpggzuri-LX-gligoupp foot exam today in the office and [...] are starting to become less controlled. Peripheral ughcaxhlkj-KX-qhmrvvvp foot exam today in the office and [...] are starting to become less controlled. Peripheral epzotnguof-QK-zlzpatsq foot exam today in the office and [...] HOSPITAL ECHO -WE WILL SCHEDULE REFER TO [employer] -DR POOLE . Atrial Fibrillation -new onset-Dr Bermudez in to evaluate patient- will start patient on cardizem cd and eliquis -get EKG and labs today- schedule echo and refer to cardiology-instructed patient and her to go to ER if symptoms worsen or do not improve -patient and verbalized understanding of plan. Hypothyroidism-check labs today MYP-qxrsegebds-rdtvbavg to monitor CARDIZEM CD 120MG DAILY ELIQUIS 5MG TWICE DAILY -SAMPLES PROVIDED EKG AND LABS TODAY AT THE HOSPITAL ECHO -WE WILL SCHEDULE REFER TO [employer] -DR POOLE . Atrial Fibrillation -new onset-Dr Bermudez in to evaluate patient- will start patient on cardizem cd and eliquis -get EKG and labs today- schedule echo and refer to cardiology-instructed patient and her to go to ER if symptoms worsen or do not improve -patient and verbalized understanding of plan. Hypothyroidism-check labs today DEA-ysvgmfotzp-cmnqjzxh to monitor check labs today . Hypertension [...]
--- OUTSIDE RECORDS SUMMARY | 2019-04-04 07:14 | XMS REPORT | CCD ---
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 Name Role Phone PP Unavailable CCM Unavailable Summary Purpose Interface Exchange Insurance Providers Payer name Policy type / Coverage type Covered democrat ID Effective Begin Date Effective End Date WPS Medicare Part B Medicare Part B [id number] Unknown [facility] Medicare Part B [id number] Unknown Family history Son Diagnosis Age At [...] Unknown Retired 03/17/[address]: 006048850 Never smoker 03/17/[address]: 919077191 Never smoker 03/17/2015 Allergies, Adverse Reactions, Alerts Substance Reaction Codes Entered Date Inactivated Date Status * NO KNOWN FOOD ALLERGIES Unknown 03/17/2015 No Inactive Date Active ciprofloxacin RxNorm: 57439 03/17/2015 No Inactive Date Active Erythromycin RxNorm: 4053 03/17/2015 No Inactive Date Active Penicillin Unknown 03/17/2015 No Inactive Date Active [id number] REDUCTASE INHIBITORS myalgias, Unknown 03/16/2016 No Inactive [...] Fill Instructions Zetia 10 mg tablet RxNorm: 967837 1/2 Tablet(s) PO daily 12/19/2018 No Stop Date Active Cardizem CD 120 mg capsule,extended release RxNorm: 732059 1 Capsule(s) PO daily 12/19/2018 06/16/2019 Active Eliquis 5 mg tablet RxNorm: 4327995 1 Tablet(s) PO BID 12/19/2018 No Stop Date Active gabapentin 100 mg capsule RxNorm: 969511 TAKE ONE CAPSULE BY MOUTH EVERY NIGHT AT BEDTIME 12/11/2018 02/08/2019 Active levothyroxine 112 mcg tablet RxNorm: 607163 TAKE ONE TABLET BY MOUTH EVERY OTHER DAY ALTERNATE WITH 100MCG TABLET 12/07/2018 03/06/2019 Active Zetia 10 mg tablet RxNorm: 068840 1 Tablet(s) PO daily 10/26/2018 12/18/2018 Inactive Zetia 10 mg tablet RxNorm: 824859 1/2 Tablet(s) PO daily 07/20/2018 10/25/2018 Inactive indapamide 1.25 mg tablet RxNorm: 104063 Tablet(s) TAKE ONE TABLET BY MOUTH DAILY 07/19/2018 07/13/2019 Active levothyroxine 112 mcg tablet RxNorm: 688946 TAKE ONE TABLET BY MOUTH EVERY OTHER DAY ALTERNATE WITH 100MCG TABLET 07/19/2018 11/15/2018 Inactive gabapentin 100 mg capsule RxNorm: 071842 TAKE ONE CAPSULE BY MOUTH EVERY NIGHT AT BEDTIME 06/05/2018 09/02/2018 Inactive Zetia 10 mg tablet RxNorm: 252064 1 Tablet(s) PO daily 05/11/2018 07/19/2018 Inactive Zetia 10 mg tablet RxNorm: 731557 1 Tablet(s) PO daily 05/11/2018 05/10/2018 Inactive enalapril maleate 5 mg tablet RxNorm: 508604 TAKE ONE TABLET BY MOUTH DAILY 04/05/2018 12/30/2018 Active indapamide 1.25 mg tablet RxNorm: 656210 TAKE ONE TABLET BY MOUTH DAILY 04/05/2018 07/18/2018 Inactive levothyroxine 100 mcg tablet RxNorm: 276413 Tablet(s) TAKE ONE TABLET BY MOUTH EVERY OTHER DAY. ALTERNATE WITH 112 MCG TABLET. 01/24/2018 05/23/2018 Inactive levothyroxine 112 mcg tablet RxNorm: 938365 1 Tablet(s) PO every other day . ALTERNATE WITH 100 MCG TABLET. 01/24/2018 05/23/2018 Inactive Crestor 10 mg tablet RxNorm: 177810 1 Tablet(s) PO Q 01/24/2018 04/13/2018 Inactive Crestor 10 mg tablet RxNorm: 452815 1 Tablet(s) PO QHS 01/24/2018 01/23/2018 Inactive gabapentin 100 mg capsule RxNorm: 639962 TAKE ONE CAPSULE BY MOUTH EVERY NIGHT AT BEDTIME 01/05/2018 06/04/2018 Inactive indapamide 1.25 mg tablet RxNorm: 453716 TAKE ONE TABLET BY MOUTH DAILY 01/05/2018 04/04/2018 Inactive Zocor 20 mg tablet RxNorm: 427804 TAKE ONE TABLET BY MOUTH DAILY 12/02/2017 01/11/2018 Inactive Phenergan-Codeine 6.25 mg-10 mg/5 mL syrup RxNorm: 694776 5-10 Milliliter(s) PO Q6 as needed cough 11/09/2017 No Stop Date Active Tamiflu 75 mg capsule RxNorm: 582489 1 Capsule(s) PO BID 11/09/2017 11/13/2017 Inactive Tamiflu 75 mg capsule RxNorm: 962608 1 Capsule(s) PO BID 11/09/2017 11/08/2017 Inactive levothyroxine 100 mcg tablet RxNorm: 230773 TAKE ONE TABLET BY MOUTH DAILY 10/28/2017 01/23/2018 Inactive indapamide 1.25 mg tablet RxNorm: 392606 TAKE ONE TABLET BY MOUTH DAILY 09/09/2017 01/04/2018 Inactive levothyroxine 100 mcg tablet RxNorm: 957284 1 Tablet(s) PO daily TAKE ONE TABLET BY MOUTH DAILY 08/04/2017 10/27/2017 Inactive Flagyl 500 mg tablet RxNorm: 422908 1 Tablet(s) PO TID 07/19/2017 07/28/2017 Inactive enalapril maleate 5 mg tablet RxNorm: 533313 TAKE ONE TABLET BY MOUTH DAILY 06/30/2017 12/26/2017 Inactive indapamide 1.25 mg tablet RxNorm: 528142 TAKE ONE TABLET BY MOUTH DAILY 05/26/2017 09/08/2017 Inactive Zocor 20 mg tablet RxNorm: 518512 TAKE ONE TABLET BY MOUTH DAILY 05/26/2017 10/22/2017 Inactive gabapentin 100 mg capsule RxNorm: 552831 1 Capsule(s) PO QHS 05/05/2017 09/01/2017 Inactive Kenalog 40 mg/mL suspension for injection RxNorm: 7540704 1 Milliliter(s) Inj 01/27/2017 01/27/2017 Inactive levothyroxine 112 mcg tablet RxNorm: 678033 TAKE ONE TABLET BY MOUTH DAILY 01/17/2017 08/03/2017 Inactive Zocor 20 mg tablet RxNorm: 755274 TAKE ONE TABLET BY MOUTH DAILY 11/08/2016 05/06/2017 Inactive indapamide 1.25 mg tablet RxNorm: 325061 TAKE ONE TABLET BY MOUTH DAILY 11/08/2016 05/06/2017 Inactive enalapril maleate 5 mg tablet RxNorm: 085445 TAKE ONE TABLET BY MOUTH DAILY 09/01/2016 05/28/2017 Inactive indapamide 1.25 mg tablet RxNorm: 667560 TAKE ONE TABLET BY MOUTH DAILY 08/02/2016 10/30/2016 Inactive Vitamin D2 50,000 unit capsule RxNorm: 684573 1 Capsule(s) PO QW 07/15/2016 01/17/2018 Inactive indapamide 1.25 mg tablet RxNorm: 752127 TAKE ONE TABLET BY MOUTH DAILY 04/29/2016 07/27/2016 Inactive Vitamin D2 50,000 unit capsule RxNorm: 511921 1 Capsule(s) PO QW 03/16/2016 07/14/2016 Inactive Zocor 20 mg tablet RxNorm: 182564 1 Tablet(s) PO daily 03/16/2016 10/11/2016 Inactive levothyroxine 112 mcg tablet RxNorm: 127721 TAKE ONE TABLET BY MOUTH DAILY 01/07/2016 12/31/2016 Inactive indapamide 1.25 mg tablet RxNorm: 358366 1 Tablet(s) PO daily 12/03/2015 03/31/2016 Inactive Vitamin D2 50,000 unit capsule RxNorm: 959767 1 Capsule(s) PO QW 09/26/2015 09/25/2015 Inactive Lipitor 10 mg tablet RxNorm: 466574 1 Tablet(s) PO daily 09/26/2015 03/15/2016 Inactive Vitamin D2 50,000 unit capsule RxNorm: 055359 1 Capsule(s) PO QW 09/26/2015 03/15/2016 Inactive enalapril maleate 5 mg tablet RxNorm: 478884 1 Tablet(s) PO daily 08/06/2015 07/30/2016 Inactive levothyroxine 112 mcg tablet RxNorm: 366201 1 Tablet(s) PO daily 04/04/2015 10/30/2015 Inactive Vitamin D3 2,000 unit capsule RxNorm: 647358 1 Capsule(s) PO daily No Start Date Active aspirin 500 mg tablet RxNorm: 148628 1 Tablet(s) PO daily No Start Date Active Co Q-10 oral RxNorm: 81463 oral No Start Date Active Phenergan-Codeine 6.25 mg-10 mg/5 mL syrup RxNorm: 604243 5-10 Milliliter(s) PO Q6 as needed cough No Start Date 11/08/2017 Inactive Lipitor 20 mg tablet RxNorm: 466281 1 Tablet(s) PO daily No Start Date 09/14/2015 Inactive indapamide 1.25 mg tablet RxNorm: 520239 1 Tablet(s) PO daily No Start Date 12/02/2015 Inactive enalapril maleate 5 mg tablet RxNorm: 684036 1 Tablet(s) PO daily No Start Date 08/05/2015 Inactive levothyroxine 112 mcg tablet RxNorm: 985366 1 Tablet(s) PO daily No Start Date 04/03/2015 Inactive Medication Administered Medication Codes Instructions Start Date Status Kenalog 40 mg/mL suspension for injection RxNorm: 0175987 1Milliliter 01/27/2017 No longer Active Immunizations Vaccine [...] (3rd IS) 2.55 uIU/mL 10/27/2018 Free T4 Xts973 FREE T4 1.07 ng/dL 10/27/2018 Comp Metabolic Ahn922 NA 138 mEq/L 10/26/2018 Comp Metabolic Vfm626 K 4.3 mEq/L 10/26/2018 Comp Metabolic Zuh571 CL 102 mEq/L 10/26/2018 Comp Metabolic Muf489 CO2 26.0 mEq/L 10/26/2018 Comp Metabolic Nwa192 ANION GAP 14 10/26/2018 Comp Metabolic Fre291 GLUCOSE 88 mg/dL 10/26/2018 Comp Metabolic Two823 Creat 0.9 mg/dL 10/26/2018 Comp Metabolic Ejf013 eGFR 63 ml/min/1.73m2 10/26/2018 Comp Metabolic Uzy159 BUN 25 mg/dL 10/26/2018 Comp Metabolic Vvs967 B/C Ratio 26.6 Ratio 10/26/2018 Comp Metabolic Ekd163 CALCIUM 10.1 mg/dL 10/26/2018 Comp Metabolic Unz261 ALK PHOS 77 U/L 10/26/2018 Comp Metabolic Ynx180 AST(SGOT) 16 U/L 10/26/2018 Comp Metabolic Bra328 ALT(SGPT) 16 U/L 10/26/2018 Comp Metabolic Fuc779 BILI T 0.5 mg/dL 10/26/2018 Comp Metabolic Aoi018 ALBUMIN 4.3 g/dL 10/26/2018 Comp Metabolic Leo899 TPRO 6.8 g/dL 10/26/2018 Comp Metabolic Fil021 GLOB 2.5 g/dL 10/26/2018 Comp Metabolic Qsv660 A/G Ratio 1.7 Ratio 10/26/2018 Comp Metabolic Nky256 Osmo 279 mOsmo 10/26/2018 %Hba1C Lez116 % HbA1c 45305- 6 5.2 % 10/26/2018 %Hba1C Omm761 Gluc Ave 103 mg/dL 10/26/2018 Cbc With [...] 29.1 pg 10/26/2018 Cbc With Differential Ord2 Winn% 9.6 % 10/26/2018 Cbc With Differential Ord2 [...] 1.94 K/ul 10/26/2018 Cbc With Differential Ord2 Winn ABS# 0.6 K/ul 10/26/2018 Cbc With Differential Ord2 Eos ABS# 0.1 K/ul 10/26/2018 Cbc With Differential Ord2 Baso ABS# 0.0 K/ul 10/26/2018 Lipid Ord30 CHOL 238 mg/dL 10/26/2018 Lipid Ord30 HDL 42.0 mg/dl 10/26/2018 Lipid Ord30 TRIG 270 mg/dL 10/26/2018 Lipid Ord30 LDL 142 mg/dL 10/26/2018 Lipid Ord30 C/HDL 5.7 Ratio 10/26/2018 %Hba1C Rth521 % HbA1c 25113- 6 5.3 % 07/20/2018 %Hba1C Jzx468 Gluc Ave 105 mg/dL 07/20/2018 Comp Metabolic Fvd348 NA 139 mEq/L 07/20/2018 Comp Metabolic Kaw499 K 5.1 mEq/L 07/20/2018 Comp Metabolic Xor524 CL 106 mEq/L 07/20/2018 Comp Metabolic Nlv869 CO2 19.0 mEq/L 07/20/2018 Comp Metabolic Kxe720 ANION GAP 19 07/20/2018 Comp Metabolic Lno021 GLUCOSE 88 mg/dL 07/20/2018 Comp Metabolic Gqq694 Creat 0.8 mg/dL 07/20/2018 Comp Metabolic Nls382 eGFR 77 ml/min/1.73m2 07/20/2018 Comp Metabolic Htc458 BUN 25 mg/dL 07/20/2018 Comp Metabolic Tiq773 B/C Ratio 31.6 Ratio 07/20/2018 Comp Metabolic Gjp113 CALCIUM 10.0 mg/dL 07/20/2018 Comp Metabolic Mje674 ALK PHOS 81 U/L 07/20/2018 Comp Metabolic Sqe317 AST(SGOT) 26 U/L 07/20/2018 Comp Metabolic Wcy903 ALT(SGPT) 16 U/L 07/20/2018 Comp Metabolic Xko488 BILI T 0.5 mg/dL 07/20/2018 Comp Metabolic Niy580 ALBUMIN 4.5 g/dL 07/20/2018 Comp Metabolic Vgb554 TPRO 7.2 g/dL 07/20/2018 Comp Metabolic Mnb878 GLOB 2.7 g/dL 07/20/2018 Comp Metabolic Rqy373 A/G Ratio 1.6 Ratio 07/20/2018 Comp Metabolic Ttb873 Osmo 281 mOsmo 07/20/2018 Free T4 Soe129 FREE T4 1.00 ng/dL 07/20/2018 Tsh Ord6 TSH (3rd IS) 2.05 uIU/mL 07/20/2018 Vitamin D 25 Oh Adv6604 VITAMIN D, 25 HYDROXY 57.07 ng/mL 07/20/2018 Lipid Ord30 CHOL 242 mg/dL 07/20/2018 Lipid Ord30 HDL 43.0 mg/dl 07/20/2018 Lipid Ord30 TRIG 314 mg/dL 07/20/2018 Lipid Ord30 LDL 136 mg/dL 07/20/2018 Lipid Ord30 C/HDL 5.6 Ratio 07/20/2018 Free T4 Agm699 FREE T4 1.24 ng/dL 04/14/2018 Tsh Ord6 TSH (3rd IS) 0.65 uIU/mL 04/14/2018 %Hba1C Crx016 % HbA1c 90866- 6 5.1 % 01/12/2018 %Hba1C Vam978 Gluc Ave 100 mg/dL 01/12/2018 Free T4 Xzg559 FREE T4 0.97 ng/dL 01/12/2018 Lipid Ord30 [...] 29.7 pg 01/12/2018 Cbc With Differential Ord2 Winn% 10.3 % 01/12/2018 Cbc With Differential Ord2 [...] 2.40 K/ul 01/12/2018 Cbc With Differential Ord2 Winn ABS# 0.8 K/ul 01/12/2018 Cbc With Differential Ord2 Eos ABS# 0.2 K/ul 01/12/2018 Cbc With Differential Ord2 Baso ABS# 0.0 K/ul 01/12/2018 Comp Metabolic Hbj285 NA 138 mEq/L 01/12/2018 Comp Metabolic Sgc491 K 4.1 mEq/L 01/12/2018 Comp Metabolic Ojq388 CL 100 mEq/L 01/12/2018 Comp Metabolic Fqj174 CO2 28.0 mEq/L 01/12/2018 Comp Metabolic Ots854 ANION GAP 14 01/12/2018 Comp Metabolic Jzo403 GLUCOSE 84 mg/dL 01/12/2018 Comp Metabolic Wqc271 Creat 0.8 mg/dL 01/12/2018 Comp Metabolic Gsc708 eGFR 78 ml/min/1.73m2 01/12/2018 Comp Metabolic Uem521 BUN 20 mg/dL 01/12/2018 Comp Metabolic Ymq980 B/C Ratio 25.6 Ratio 01/12/2018 Comp Metabolic Tku274 CALCIUM 9.6 mg/dL 01/12/2018 Comp Metabolic Yyq912 ALK PHOS 76 U/L 01/12/2018 Comp Metabolic Pyp334 AST(SGOT) 16 U/L 01/12/2018 Comp Metabolic Rjp401 ALT(SGPT) 16 U/L 01/12/2018 Comp Metabolic Acf860 BILI T 0.4 mg/dL 01/12/2018 Comp Metabolic Jmh080 ALBUMIN 4.1 g/dL 01/12/2018 Comp Metabolic Hcl785 TPRO 6.7 g/dL 01/12/2018 Comp Metabolic Lap025 GLOB 2.6 g/dL 01/12/2018 Comp Metabolic Fdx699 A/G Ratio 1.6 Ratio 01/12/2018 Comp Metabolic Duh480 Osmo 277 mOsmo 01/12/2018 Free T4 Fxn113 FREE T4 1.40 ng/dL 08/05/2017 %Hba1C Ldr087 % HbA1c 70878- 6 5.0 % 08/05/2017 %Hba1C Jml983 Gluc Ave 97 mg/dL 08/05/2017 Cbc With [...] 29.5 pg 08/03/2017 Cbc With Differential Ord2 Winn% 9.3 % 08/03/2017 Cbc With Differential Ord2 [...] 2.10 K/ul 08/03/2017 Cbc With Differential Ord2 Winn ABS# 0.7 K/ul 08/03/2017 Cbc With Differential Ord2 Eos ABS# 0.1 K/ul 08/03/2017 Cbc With Differential Ord2 Baso ABS# 0.0 K/ul 08/03/2017 Vitamin D 25 Oh Dtb7058 VITAMIN D, 25 HYDROXY 52.73 ng/mL 08/03/2017 Lipid Ord30 CHOL 215 mg/dL 08/03/2017 Lipid Ord30 HDL 43.0 mg/dl 08/03/2017 Lipid Ord30 TRIG 278 mg/dL 08/03/2017 Lipid Ord30 LDL 116 mg/dL 08/03/2017 Lipid Ord30 C/HDL 5.0 Ratio 08/03/2017 Tsh Ord6 hTSH II 0.09 uIU/mL 08/03/2017 Comp Metabolic Ssu713 NA 137 mEq/L 08/03/2017 Comp Metabolic Jzv349 K 4.3 mEq/L 08/03/2017 Comp Metabolic Fmy148 CL 102 mEq/L 08/03/2017 Comp Metabolic Jxk165 CO2 24.0 mEq/L 08/03/2017 Comp Metabolic Vov043 ANION GAP 15 08/03/2017 Comp Metabolic Mgd559 GLUCOSE 80 mg/dL 08/03/2017 Comp Metabolic Jpy148 Creat 0.9 mg/dL 08/03/2017 Comp Metabolic Zvy696 eGFR 68 ml/min/1.73m2 08/03/2017 Comp Metabolic Pdu187 BUN 18 mg/dL 08/03/2017 Comp Metabolic Ger049 B/C Ratio 20.5 Ratio 08/03/2017 Comp Metabolic Knl208 CALCIUM 9.7 mg/dL 08/03/2017 Comp Metabolic Mpd233 ALK PHOS 68 U/L 08/03/2017 Comp Metabolic Goi188 AST(SGOT) 14 U/L 08/03/2017 Comp Metabolic Sbt161 ALT(SGPT) 14 U/L 08/03/2017 Comp Metabolic Yjj793 BILI T 0.6 mg/dL 08/03/2017 Comp Metabolic Ydj165 ALBUMIN 4.0 g/dL 08/03/2017 Comp Metabolic Vbj674 TPRO 6.4 g/dL 08/03/2017 Comp Metabolic Lzr815 GLOB 2.4 g/dL 08/03/2017 Comp Metabolic Lbp955 A/G Ratio 1.7 Ratio 08/03/2017 Comp Metabolic Vwd459 Osmo 275 mOsmo 08/03/2017 %Hba1C Vvo178 % HbA1c 76344- 6 5.1 % 01/06/2017 %Hba1C Vij792 Gluc Ave 100 mg/dL 01/06/2017 Lipid Ord30 CHOL 223 mg/dL 01/06/2017 Lipid Ord30 HDL 44.0 mg/dl 01/06/2017 Lipid Ord30 TRIG 292 mg/dL 01/06/2017 Lipid Ord30 LDL 121 mg/dL 01/06/2017 Lipid Ord30 C/HDL 5.1 Ratio 01/06/2017 Tsh Ord6 hTSH II 0.99 uIU/mL 01/06/2017 Free T4 Mel177 FREE T4 0.96 ng/dL 01/06/2017 Cbc With [...] 29.6 pg 01/06/2017 Cbc With Differential Ord2 Winn% 9.2 % 01/06/2017 Cbc With Differential Ord2 [...] 1.85 K/ul 01/06/2017 Cbc With Differential Ord2 Winn ABS# 0.6 K/ul 01/06/2017 Cbc With Differential Ord2 Eos ABS# 0.1 K/ul 01/06/2017 Cbc With Differential Ord2 Baso ABS# 0.0 K/ul 01/06/2017 Vitamin D 25 Oh Tct3993 VITAMIN D, 25 HYDROXY 35.10 ng/mL 01/06/2017 Comp Metabolic Dlu642 NA 140 mEq/L 01/06/2017 Comp Metabolic Znw442 K 4.3 mEq/L 01/06/2017 Comp Metabolic Zvs099 CL 103 mEq/L 01/06/2017 Comp Metabolic Zjl131 CO2 29.0 mEq/L 01/06/2017 Comp Metabolic Qac410 ANION GAP 12 01/06/2017 Comp Metabolic Puj763 GLUCOSE 86 mg/dL 01/06/2017 Comp Metabolic Hkw618 Creat 0.8 mg/dL 01/06/2017 Comp Metabolic Yso831 eGFR 82 ml/min/1.73m2 01/06/2017 Comp Metabolic Bop168 BUN 19 mg/dL 01/06/2017 Comp Metabolic Lpn875 B/C Ratio 25.3 Ratio 01/06/2017 Comp Metabolic Itz796 CALCIUM 9.6 mg/dL 01/06/2017 Comp Metabolic Dhj636 ALK PHOS 77 U/L 01/06/2017 Comp Metabolic Ywv146 AST(SGOT) 16 U/L 01/06/2017 Comp Metabolic Zms798 ALT(SGPT) 18 U/L 01/06/2017 Comp Metabolic Irh543 BILI T 0.4 mg/dL 01/06/2017 Comp Metabolic Cfe478 ALBUMIN 4.1 g/dL 01/06/2017 Comp Metabolic Vmh514 TPRO 6.7 g/dL 01/06/2017 Comp Metabolic Rbu284 GLOB 2.6 g/dL 01/06/2017 Comp Metabolic Azi756 A/G Ratio 1.6 Ratio 01/06/2017 Comp Metabolic Jkp218 Osmo 281 mOsmo 01/06/2017 Vitamin D 25 Oh Kxa7029 VITAMIN D, 25 HYDROXY 42.77 ng/mL 07/09/2016 Free T4 Ppl785 FREE T4 1.23 ng/dL 07/08/2016 Comp Metabolic Acm466 NA 136 mEq/L 07/08/2016 Comp Metabolic Hee415 K 4.1 mEq/L 07/08/2016 Comp Metabolic Zjb672 CL 103 mEq/L 07/08/2016 Comp Metabolic Wyi760 CO2 26.0 mEq/L 07/08/2016 Comp Metabolic Vqp742 ANION GAP 11 07/08/2016 Comp Metabolic Gtt314 GLUCOSE 83 mg/dL 07/08/2016 Comp Metabolic Yke144 Creat 0.8 mg/dL 07/08/2016 Comp Metabolic Faj218 eGFR 80 ml/min/1.73m2 07/08/2016 Comp Metabolic Dkf701 BUN 22 mg/dL 07/08/2016 Comp Metabolic Icg198 B/C Ratio 28.9 Ratio 07/08/2016 Comp Metabolic Plm366 CALCIUM 9.8 mg/dL 07/08/2016 Comp Metabolic Eir713 ALK PHOS 75 U/L 07/08/2016 Comp Metabolic Bcl793 AST(SGOT) 14 U/L 07/08/2016 Comp Metabolic Vqf347 ALT(SGPT) 15 U/L 07/08/2016 Comp Metabolic Gry807 BILI T 0.4 mg/dL 07/08/2016 Comp Metabolic Lrm632 ALBUMIN 4.1 g/dL 07/08/2016 Comp Metabolic Cgr289 TPRO 6.6 g/dL 07/08/2016 Comp Metabolic Ltc366 GLOB 2.5 g/dL 07/08/2016 Comp Metabolic Qqq427 A/G Ratio 1.7 Ratio 07/08/2016 Comp Metabolic Gpq326 Osmo 274 mOsmo 07/08/2016 %Hba1C Qab336 % HbA1c 62192- 6 5.4 % 07/08/2016 %Hba1C Qzx486 Gluc Ave 108 mg/dL 07/08/2016 Cbc With [...] 29.8 pg 07/08/2016 Cbc With Differential Ord2 Winn% 10.1 % 07/08/2016 Cbc With Differential Ord2 [...] 1.89 K/ul 07/08/2016 Cbc With Differential Ord2 Winn ABS# 0.7 K/ul 07/08/2016 Cbc With Differential Ord2 Eos ABS# 0.2 K/ul 07/08/2016 Cbc With Differential Ord2 Baso ABS# 0.0 K/ul 07/08/2016 Tsh Ord6 hTSH II 0.21 uIU/mL 07/08/2016 Lipid Ord30 CHOL 210 mg/dL 07/08/2016 Lipid Ord30 HDL 41.0 mg/dl 07/08/2016 Lipid Ord30 TRIG 257 mg/dL 07/08/2016 Lipid Ord30 LDL 118 mg/dL 07/08/2016 Lipid Ord30 C/HDL 5.1 Ratio 07/08/2016 Vitamin D 25 Oh Ouz8098 VITAMIN D, 25 HYDROXY 34.38 ng/mL 03/10/2016 %Hba1C Pup248 % HbA1c 64538- 6 5.3 % 03/09/2016 %Hba1C Kzq431 Gluc Ave 105 mg/dL 03/09/2016 Comp Metabolic Auz863 NA 137 mEq/L 03/09/2016 Comp Metabolic Abw791 K 4.5 mEq/L 03/09/2016 Comp Metabolic Taj191 CL 104 mEq/L 03/09/2016 Comp Metabolic Lqb176 CO2 27.0 mEq/L 03/09/2016 Comp Metabolic Fke219 ANION GAP 11 03/09/2016 Comp Metabolic Wkn924 GLUCOSE 86 mg/dL 03/09/2016 Comp Metabolic Lwu424 Creat 0.8 mg/dL 03/09/2016 Comp Metabolic Nmp320 eGFR 81 ml/min/1.73m2 03/09/2016 Comp Metabolic Qby889 BUN 23 mg/dL 03/09/2016 Comp Metabolic Cdo806 B/C Ratio 30.3 Ratio 03/09/2016 Comp Metabolic Xig043 CALCIUM 9.4 mg/dL 03/09/2016 Comp Metabolic Hsa624 ALK PHOS 69 U/L 03/09/2016 Comp Metabolic Iki823 AST(SGOT) 14 U/L 03/09/2016 Comp Metabolic Nky961 ALT(SGPT) 14 U/L 03/09/2016 Comp Metabolic Cdw773 BILI T 0.4 mg/dL 03/09/2016 Comp Metabolic Ldu535 ALBUMIN 4.1 g/dL 03/09/2016 Comp Metabolic Yzc375 TPRO 6.6 g/dL 03/09/2016 Comp Metabolic Bnm531 GLOB 2.5 g/dL 03/09/2016 Comp Metabolic Sds799 A/G Ratio 1.6 Ratio 03/09/2016 Comp Metabolic Mrn013 Osmo 277 mOsmo 03/09/2016 Tsh Ord6 hTSH [...] 28.9 pg 03/09/2016 Cbc With Differential Ord2 Winn% 11.1 % 03/09/2016 Cbc With Differential Ord2 [...] 2.16 K/ul 03/09/2016 Cbc With Differential Ord2 Winn ABS# 0.9 K/ul 03/09/2016 Cbc With Differential Ord2 Eos ABS# 0.1 K/ul 03/09/2016 Cbc With Differential Ord2 Baso ABS# 0.0 K/ul 03/09/2016 Lipid Ord30 CHOL 283 mg/dL 03/09/2016 Lipid Ord30 HDL 40.0 mg/dl 03/09/2016 Lipid Ord30 TRIG 271 mg/dL 03/09/2016 Lipid Ord30 LDL 189 mg/dL 03/09/2016 Lipid Ord30 C/HDL 7.1 Ratio 03/09/2016 Comp Metabolic Ehx679 NA 137 mEq/L 09/15/2015 Comp Metabolic Tpi874 K 4.4 mEq/L 09/15/2015 Comp Metabolic Wzj819 CL 101 mEq/L 09/15/2015 Comp Metabolic Ujv084 CO2 28.0 mEq/L 09/15/2015 Comp Metabolic Dae239 ANION GAP 12 09/15/2015 Comp Metabolic Kla017 GLUCOSE 89 mg/dL 09/15/2015 Comp Metabolic Vtn570 Creat 0.8 mg/dL 09/15/2015 Comp Metabolic Sfc936 eGFR 73 ml/min/1.73m2 09/15/2015 Comp Metabolic Hxu925 BUN 20 mg/dL 09/15/2015 Comp Metabolic Pnw971 B/C Ratio 24.1 Ratio 09/15/2015 Comp Metabolic Ndy303 CALCIUM 10.1 mg/dL 09/15/2015 Comp Metabolic Niq100 ALK PHOS 72 U/L 09/15/2015 Comp Metabolic Hnu953 AST(SGOT) 16 U/L 09/15/2015 Comp Metabolic Fhl514 ALT(SGPT) 15 U/L 09/15/2015 Comp Metabolic Xxq763 BILI T 0.5 mg/dL 09/15/2015 Comp Metabolic Vtg010 ALBUMIN 4.4 g/dL 09/15/2015 Comp Metabolic Ufa309 TPRO 7.0 g/dL 09/15/2015 Comp Metabolic Jbp269 GLOB 2.6 g/dL 09/15/2015 Comp Metabolic Ezm048 A/G Ratio 1.7 Ratio 09/15/2015 Comp Metabolic Sol377 Osmo 276 mOsmo 09/15/2015 Tsh Ord6 hTSH II 2.99 uIU/mL 09/15/2015 Vitamin D 25 Oh Ayv4094 VITAMIN D, 25 HYDROXY 30.19 ng/mL 09/15/2015 [...] Lipid Ord30 C/HDL 7.0 Ratio 09/15/2015 %Hba1C Zck136 % HbA1c 08755- 6 5.2 % 09/15/2015 %Hba1C Bmh430 Gluc Ave 103 mg/dL 09/15/2015 Review of [...] Formatting Model/CDA Sections, Assigned to/Margarita Brock CPT-4: 55882Mhdejed 07/27/2018 FLU VAC NO PRSV 4 SHANNON 3 YRS+ CPT-4: 40678 08/04/2017 ADMIN INFLUENZA VIRUS VAC CPT-4: G0008 08/04/2017 TRIAMCINOLONE ACET INJ NOS CPT-4: J3301 01/27/2017 THER/PROPH/DIAG INJ SC/IM CPT-4: 90588 01/27/2017 ADMIN INFLUENZA VIRUS VAC CPT-4: G0008 07/15/2016 FLU VACC 4 SHANNON 3 YRS PLUS IM SNOMED CT: 02702347 CPT-4: 17488 07/15/2016 Vital Signs Date Vital 12/19/2018 Blood Pressure 1: 128/78 Code: 8480-6 Heart Rate 1: 96 bpm Height: 5'4" SpO2: 97% Weight: 10/26/2018 Blood Pressure 1: 132/76 Code: 8480-6 BMI: 34.5 Code: 03311-9 Heart Rate 1: 55 bpm Height: 5'4" SpO2: 99% Weight: 204 lbs 07/20/2018 Blood Pressure 1: 116/74 Code: 8480-6 BMI: 34.5 Code: 82716-8 Heart Rate 1: 52 bpm Height: 5'4" SpO2: 99% Weight: 204 lbs 04/14/2018 Blood Pressure 1: 128/76 Code: 8480-6 BMI: 34.5 Code: 06938-8 Heart Rate 1: 67 bpm Height: 5'4" SpO2: 95% Weight: 204 lbs 02/06/2018 Blood Pressure 1: 142/78 Code: 8480-6 BMI: 35.2 Code: 15041-8 Heart Rate 1: 58 bpm Height: 5'4" SpO2: 98% Weight: 208 lbs 01/12/2018 Blood Pressure 1: 132/82 Code: 8480-6 BMI: 34.8 Code: 98665-4 Height: 5'4" Weight: 206 lbs 08/04/2017 Blood Pressure 1: 140/82 Code: 8480-6 BMI: 31.9 Code: 69593-8 Heart Rate 1: 58 bpm Height: 5'4" SpO2: 99% Weight: 188 lbs 8 oz 07/19/2017 Blood Pressure 1: 136/76 Code: 8480-6 BMI: 32.0 Code: 55554-7 Heart Rate 1: 67 bpm Height: 5'4" SpO2: 97% Weight: 189 lbs 8 oz 05/05/2017 Blood Pressure 1: 142/80 Code: 8480-6 BMI: 32.4 Code: 44974-0 Heart Rate 1: 54 bpm Height: 5'4" SpO2: 98% Weight: 191 lbs 8 oz 01/27/2017 Blood Pressure 1: 132/82 Code: 8480-6 BMI: 34.1 Code: 07205-1 Heart Rate 1: 55 bpm Height: 5'4" SpO2: 99% Weight: 202 lbs 07/15/2016 Blood Pressure 1: 128/72 Code: 8480-6 BMI: 34.4 Code: 02830-2 Heart Rate 1: 50 bpm Height: 5'4" SpO2: 98% Weight: 203 lbs 8 oz 03/16/2016 Blood Pressure 1: 118/78 Code: 8480-6 BMI: 34.5 Code: 59834-1 Heart Rate 1: 55 bpm Height: 5'4" SpO2: 98% Weight: 204 lbs 09/15/2015 Blood Pressure 1: 134/72 Code: 8480-6 BMI: 34.6 Code: 39669-1 Heart Rate 1: 52 bpm Height: 5'4" SpO2: 99% Weight: 205 lbs 03/17/2015 Blood Pressure 1: 128/74 Code: 8480-6 BMI: 35.8 Code: 30451-0 Heart Rate 1: 59 bpm Height: 5'4" [...] data Encounters Encounter Performer Location Codes Date ([id number]) [id number] EST. PATIENT, LEVEL IV Diagnosis: Paroxysmal atrial fibrillation[ICD10: I48.0] Diagnosis: Hypothyroidism, unspecified[ICD10: E03.9] Diagnosis: Essential (primary) hypertension[ICD10: I10] [facility] CPT-4: 12832 12/19/2018 ([id number]) [id number] EST. PATIENT, LEVEL IV Diagnosis: Essential (primary) hypertension[ICD10: I10] Diagnosis: Type 2 diabetes mellitus with diabetic polyneuropathy[ICD10: E11.42] Diagnosis: Hypothyroidism, unspecified[ICD10: E03.9] Diagnosis: Mixed hyperlipidemia[ICD10: E78.2] Diagnosis: Lumbago with sciatica, right side[ICD10: M54.41] [facility] CPT-4: 00309 10/26/2018 ([id number]) [id number] EST. PATIENT, LEVEL IV Diagnosis: Type 2 diabetes mellitus with diabetic polyneuropathy[ICD10: E11.42] Diagnosis: Mixed hyperlipidemia[ICD10: E78.2] Diagnosis: Essential (primary) hypertension[ICD10: I10] Diagnosis: Vitamin D deficiency, unspecified[ICD10: E55.9] Diagnosis: Hypothyroidism, unspecified[ICD10: E03.9] [facility] CPT-4: 19012 07/20/2018 ([id number]) [id number] EST. PATIENT, LEVEL IV Diagnosis: Essential (primary) hypertension[ICD10: I10] Diagnosis: Hypothyroidism, unspecified[ICD10: E03.9] Diagnosis: Mixed hyperlipidemia[ICD10: E78.2] Delmis Bermudez MD, [facility] CPT- 4: 14464 04/14/2018 ([id number]) [id number] EST. PATIENT, LEVEL III Diagnosis: Type 2 diabetes mellitus with diabetic polyneuropathy[ICD10: E11.42] Delmis Bermudez MD, [facility] CPT-4: 47524 02/06/2018 ([id number]) 03219 EST. PATIENT, LEVEL IV Diagnosis: Mixed hyperlipidemia[ICD10: E78.2] Diagnosis: Hypothyroidism, unspecified[ICD10: E03.9] Diagnosis: Type 2 diabetes mellitus without complications[ICD10: E11.9] Delmis Bermudez MD, [facility] CPT-4: 24319 01/12/2018 ([id number]) 06580 EST. PATIENT, LEVEL IV Diagnosis: Essential (primary) hypertension[ICD10: I10] Diagnosis: Mixed hyperlipidemia[ICD10: E78.2] Diagnosis: Hypothyroidism, unspecified[ICD10: E03.9] Diagnosis: Type 2 diabetes mellitus without complications[ICD10: E11.9] Diagnosis: Encounter for immunization[ICD10: Z23] Delmis Bermudez MD, [facility] CPT-4: 30589 08/04/2017 ([id number]) 90236 EST. PATIENT, LEVEL III Diagnosis: Diverticulitis of large intestine without perforation or abscess without bleeding[ICD10: K57.32] Delmis Bermudez MD, [facility] CPT-4: 57998 07/19/2017 ([id number]) 97289 EST. PATIENT, LEVEL III Diagnosis: Type 2 diabetes mellitus with diabetic polyneuropathy[ICD10: E11.42] Delmis Bermudez MD, [facility] CPT-4: 24669 05/05/2017 ([id number]) 52568 EST. PATIENT, LEVEL IV Diagnosis: Essential (primary) hypertension[ICD10: I10] Diagnosis: Type 2 diabetes mellitus without complications[ICD10: E11.9] Diagnosis: Mixed hyperlipidemia[ICD10: E78.2] Diagnosis: Allergic rhinitis due to pollen[ICD10: J30.1] Ria Bermudez MD, [facility] CPT-4: 58416 01/27/2017 ([id number]) 87691 EST. PATIENT, LEVEL IV Diagnosis: Type 2 diabetes mellitus without complications[ICD10: E11.9] Diagnosis: Essential (primary) hypertension[ICD10: I10] Diagnosis: Mixed hyperlipidemia[ICD10: E78.2] Ria Bermudez MD, [facility] CPT- 4: 37852 07/15/2016 ([id number]) 71269 EST. PATIENT, LEVEL IV Diagnosis: Type 2 diabetes mellitus without complications[ICD10: E11.9] Diagnosis: Polyneuropathy, unspecified[ICD10: G62.9] Diagnosis: Mixed hyperlipidemia[ICD10: E78.2] Ria Bermudez MD, [facility] CPT- 4: 14515 03/16/2016 ([id number]) 26530 EST. PATIENT, LEVEL IV Diagnosis: Type 2 diabetes mellitus without complications[ICD10: E11.9] Diagnosis: Essential (primary) hypertension[ICD10: I10] Diagnosis: Vitamin D deficiency, unspecified[ICD10: E55.9] Diagnosis: Mixed hyperlipidemia[ICD10: E78.2] Ria Bermudez MD, [facility] CPT- 4: 57764 09/15/2015 ([id number]) OFFICE VISIT, NEW - LEVEL 4 Diagnosis: ESSENTIAL HYPERTENSION[ICD9: 401.9] Diagnosis: Diabetes mellitus type 2, controlled[ICD9: 250.00] Diagnosis: Peripheral neuropathy[ICD9: 356.9] Delmis Bermudez MD, [facility] CPT- 4: 27755 03/17/2015 Plan of Care Planned Activity Notes Codes Status Date Visit Plan: Atrial Fibrillation -new onset-Dr Bermudez in to evaluate patient- will start patient on cardizem cd and eliquis -get EKG and labs today- schedule echo and refer to cardiology-instructed patient and her to go to ER if symptoms worsen or do not improve -patient and verbalized understanding of plan. Hypothyroidism-check labs today WMQ-vncwqabiuh-lnjrwimb to monitor 12/19/2018 Patient Education: Patient Medication Summary Completed 12/19/2018 Patient Education: Eliquis - 18+ - No MARIBELL GARZA Completed 12/19/2018 Care Plan: Cbc With Differential Pending 12/19/2018 Care Plan: Comp Metabolic Pending 12/19/2018 Care Plan: Tsh Pending 12/19/2018 Care Plan: Free T4 Pending 12/19/2018 Care Plan: Referral Order SNOMED-CT : [id number] Pending 12/19/2018 Visit Plan: Hypertension - well [...] they worsen. 10/26/2018 Appointment: Delmis Her WPtel: [address] [place], [place] [phone] (15 min) Moderate 10/26/2018 Patient Education: Patient [...] Appointment: [phone] (15 min) Moderate 07/20/2018 Patient Education: Patient [...] Appointment: Delmis Her WPtel: [phone] (15 min) Moderate 04/14/2018 Patient Education: Patient Medication Summary Completed 04/14/2018 Visit Plan: Diabetic peripheral neuropathy -paperwork for diabetic shoes completed today in the office and will fax to Dr Briscoe's office- Patient verbalized understanding of plan. 02/06/2018 Appointment: [phone] [phone] (15 min) Moderate 02/06/2018 Patient Education: Patient [...] control. 01/12/2018 Appointment: [phone] [phone] (30 min) Complex 01/12/2018 Patient Education: Patient [...] to medications. 08/04/2017 Appointment: Delmis Her WPtel: [address] [place], [place] [phone] (30 min) Complex 08/04/2017 Patient Education: Patient Medication Summary Completed 08/04/2017 Patient Education: Obesity Completed 08/04/2017 Care Plan: %Hba1C LOINC : 40620-0 Pending 08/04/2017 Visit Plan: Diverticulitis - rx for antibiotic sent to pt's pharmacy - pt advised to avoid seeds, nuts, popcorn, or any other food which has been proven to upset the pt's stomach. Call if symptoms do not improve or if any worse and we will check labs and CT scan. Patient verbalized understanding of plan. 07/19/2017 Appointment: Delmis Her WPtel: [address] [place], [place] [phone] (30 min) Complex 07/19/2017 Patient Education: Patient Medication Summary Completed 07/19/2017 Patient Education: Obesity Completed 07/19/2017 Visit Plan: Diabetic peripheral neuropathy - diabetes paperwork completed today in the office-patient does want to start medication-RX for gabapentin sent electronically and provided and instructed on use. Patient verbalized understanding of plan. 05/05/2017 Appointment: Delmis Her WPtel: [facility] [address] (30 min) Complex 05/05/2017 Patient Education: Patient Medication Summary Completed 05/05/2017 Patient Education: Obesity Completed 05/05/2017 Appointment: [phone] [phone] [facility] - Annual Wellness Visit 01/28/2017 Visit Plan: [...] kenalog 01/27/2017 Appointment: Ria Bermudez WPtel: [phone] [facility] (15 min) Moderate 01/27/2017 Patient Education: Patient Medication Summary Completed 01/27/2017 Patient Education: Obesity Completed 01/27/2017 Appointment: Ria Bermudez WPtel[facility] (15 min) Moderate 01/11/2017 Visit Plan: Hypertension [...] 07/15/2016 Appointment: [facility]el[facility] [phone] [facility] (15 min) Moderate 07/15/2016 Patient Education: Patient [...] this time. 03/16/2016 Appointment: [facility]el[facility] [phone] [facility] (15 min) Moderate 03/16/2016 Patient Education: [...] are starting to become less controlled. Peripheral tqmcgpmaxz-UG-qjffbedn foot exam today in the office and [...] are starting to become less controlled. Peripheral vxmxyvvhel-ES-vwopjdsw foot exam today in the office and [...] are starting to become less controlled. Peripheral eicxrpbdhx-UA-xoagnzns foot exam today in the office and paperwork completed for diabetic shoes-see scanned document 03/17/2015 Appointment: Ria Bermudez WPtel: [facility] [place] New Patient 03/17/2015 Patient [...] are starting to become less controlled. Peripheral erdlhzeeup-MO-dozhxpdp foot exam today in the office and [...] are starting to become less controlled. Peripheral msvhatkljz-RF-nozyusoq foot exam today in the office and [...] are starting to become less controlled. Peripheral bgnyoefoyt-SK-kbcegzak foot exam today in the office and [...] HOSPITAL ECHO -WE WILL SCHEDULE REFER TO [employer] -DR POOLE . Atrial Fibrillation -new onset-Dr Bermudez in to evaluate patient- will start patient on cardizem cd and eliquis -get EKG and labs today- schedule echo and refer to cardiology-instructed patient and her to go to ER if symptoms worsen or do not improve -patient and verbalized understanding of plan. Hypothyroidism-check labs today UBV-npbodvtoac-anljnqwr to monitor check labs today . Hypertension [...]
--- OUTSIDE RECORDS SUMMARY | 2019-04-04 07:16 | XMS REPORT | CCD ---
Author Author Delmis Her Organization Ria Bermudez MD, [facility] Address [address] [place] [address] Phone Care Team Providers [employer] Name Role Phone PP Unavailable CCM Unavailable Summary Purpose Interface Exchange Insurance Providers Payer name Policy type / Coverage type Covered democrat ID Effective Begin Date Effective End Date WPS Medicare Part B Medicare Part B [id number] Unknown [facility] Medicare Part B [id number] Unknown Family history Son Diagnosis Age At [...] Unknown Retired 03/17/[address]: 143727351 Never smoker 03/17/[address]: 409957740 Never smoker 03/17/2015 Allergies, Adverse Reactions, Alerts Substance Reaction Codes Entered Date Inactivated Date Status * NO KNOWN FOOD ALLERGIES Unknown 03/17/2015 No Inactive Date Active ciprofloxacin RxNorm: 99315 03/17/2015 No Inactive Date Active Erythromycin RxNorm: 4053 03/17/2015 No Inactive Date Active Penicillin Unknown 03/17/2015 No Inactive Date Active [id number] REDUCTASE INHIBITORS myalgias, Unknown 03/16/2016 No Inactive Date Active SULFA(SULFONAMIDE ANTIBIOTICS) Unknown 03/17/2015 No Inactive Date Active Past Medical History Illness Codes Condition Status Onset Date Resolved Date Sciatica Unknown Active 10/26/2018 Unknown Essential (primary) hypertension ICD-9: 401.1 ICD-10: I10 Active 01/27/2017 Unknown Hypothyroidism, unspecified ICD-9: 244.9 ICD-10: E03.9 Active 08/04/2017 Unknown Lumbago with sciatica, right side ICD-9: [...] Problems Condition Codes Effective Dates Condition Status Sciatica Unknown 10/26/2018 Active Essential (primary) hypertension ICD-9: 401.1 ICD-10: I10 01/27/2017 Active Hypothyroidism, unspecified ICD-9: 244.9 ICD-10: E03.9 08/04/2017 Active Lumbago with sciatica, right side ICD-9: [...] Start Date Stop Date Status Fill Instructions gabapentin 100 mg capsule RxNorm: 675904 TAKE ONE CAPSULE BY MOUTH EVERY NIGHT AT BEDTIME 12/11/2018 02/08/2019 Active levothyroxine 112 mcg tablet RxNorm: 436586 TAKE ONE TABLET BY MOUTH EVERY OTHER DAY ALTERNATE WITH 100MCG TABLET 12/07/2018 03/06/2019 Active Zetia 10 mg tablet RxNorm: 784390 1 Tablet(s) PO daily 10/26/2018 No Stop Date Active Zetia 10 mg tablet RxNorm: 561564 1/2 Tablet(s) PO daily 07/20/2018 10/25/2018 Inactive indapamide 1.25 mg tablet RxNorm: 171409 Tablet(s) TAKE ONE TABLET BY MOUTH DAILY 07/19/2018 07/13/2019 Active levothyroxine 112 mcg tablet RxNorm: 387844 TAKE ONE TABLET BY MOUTH EVERY OTHER DAY ALTERNATE WITH 100MCG TABLET 07/19/2018 11/15/2018 Inactive gabapentin 100 mg capsule RxNorm: 956015 TAKE ONE CAPSULE BY MOUTH EVERY NIGHT AT BEDTIME 06/05/2018 09/02/2018 Inactive Zetia 10 mg tablet RxNorm: 498249 1 Tablet(s) PO daily 05/11/2018 07/19/2018 Inactive Zetia 10 mg tablet RxNorm: 887117 1 Tablet(s) PO daily 05/11/2018 05/10/2018 Inactive enalapril maleate 5 mg tablet RxNorm: 110581 TAKE ONE TABLET BY MOUTH DAILY 04/05/2018 12/30/2018 Active indapamide 1.25 mg tablet RxNorm: 943407 TAKE ONE TABLET BY MOUTH DAILY 04/05/2018 07/18/2018 Inactive levothyroxine 100 mcg tablet RxNorm: 432464 Tablet(s) TAKE ONE TABLET BY MOUTH EVERY OTHER DAY. ALTERNATE WITH 112 MCG TABLET. 01/24/2018 05/23/2018 Inactive levothyroxine 112 mcg tablet RxNorm: 564071 1 Tablet(s) PO every other day . ALTERNATE WITH 100 MCG TABLET. 01/24/2018 05/23/2018 Inactive Crestor 10 mg tablet RxNorm: 242917 1 Tablet(s) PO QHS 01/24/2018 04/13/2018 Inactive Crestor 10 mg tablet RxNorm: 539346 1 Tablet(s) PO QHS 01/24/2018 01/23/2018 Inactive gabapentin 100 mg capsule RxNorm: 143338 TAKE ONE CAPSULE BY MOUTH EVERY NIGHT AT BEDTIME 01/05/2018 06/04/2018 Inactive indapamide 1.25 mg tablet RxNorm: 128504 TAKE ONE TABLET BY MOUTH DAILY 01/05/2018 04/04/2018 Inactive Zocor 20 mg tablet RxNorm: 051889 TAKE ONE TABLET BY MOUTH DAILY 12/02/2017 01/11/2018 Inactive Phenergan-Codeine 6.25 mg-10 mg/5 mL syrup RxNorm: 240099 5-10 Milliliter(s) PO Q6 as needed cough 11/09/2017 No Stop Date Active Tamiflu 75 mg capsule RxNorm: 458784 1 Capsule(s) PO BID 11/09/2017 11/13/2017 Inactive Tamiflu 75 mg capsule RxNorm: 068883 1 Capsule(s) PO BID 11/09/2017 11/08/2017 Inactive levothyroxine 100 mcg tablet RxNorm: 717980 TAKE ONE TABLET BY MOUTH DAILY 10/28/2017 01/23/2018 Inactive indapamide 1.25 mg tablet RxNorm: 224863 TAKE ONE TABLET BY MOUTH DAILY 09/09/2017 01/04/2018 Inactive levothyroxine 100 mcg tablet RxNorm: 235318 1 Tablet(s) PO daily TAKE ONE TABLET BY MOUTH DAILY 08/04/2017 10/27/2017 Inactive Flagyl 500 mg tablet RxNorm: 119295 1 Tablet(s) PO TID 07/19/2017 07/28/2017 Inactive enalapril maleate 5 mg tablet RxNorm: 359288 TAKE ONE TABLET BY MOUTH DAILY 06/30/2017 12/26/2017 Inactive indapamide 1.25 mg tablet RxNorm: 903099 TAKE ONE TABLET BY MOUTH DAILY 05/26/2017 09/08/2017 Inactive Zocor 20 mg tablet RxNorm: 699852 TAKE ONE TABLET BY MOUTH DAILY 05/26/2017 10/22/2017 Inactive gabapentin 100 mg capsule RxNorm: 294592 1 Capsule(s) PO QHS 05/05/2017 09/01/2017 Inactive Kenalog 40 mg/mL suspension for injection RxNorm: 2685275 1 Milliliter(s) Inj 01/27/2017 01/27/2017 Inactive levothyroxine 112 mcg tablet RxNorm: 314978 TAKE ONE TABLET BY MOUTH DAILY 01/17/2017 08/03/2017 Inactive Zocor 20 mg tablet RxNorm: 270356 TAKE ONE TABLET BY MOUTH DAILY 11/08/2016 05/06/2017 Inactive indapamide 1.25 mg tablet RxNorm: 147830 TAKE ONE TABLET BY MOUTH DAILY 11/08/2016 05/06/2017 Inactive enalapril maleate 5 mg tablet RxNorm: 369626 TAKE ONE TABLET BY MOUTH DAILY 09/01/2016 05/28/2017 Inactive indapamide 1.25 mg tablet RxNorm: 820705 TAKE ONE TABLET BY MOUTH DAILY 08/02/2016 10/30/2016 Inactive Vitamin D2 50,000 unit capsule RxNorm: 999616 1 Capsule(s) PO QW 07/15/2016 01/17/2018 Inactive indapamide 1.25 mg tablet RxNorm: 488916 TAKE ONE TABLET BY MOUTH DAILY 04/29/2016 07/27/2016 Inactive Vitamin D2 50,000 unit capsule RxNorm: 579043 1 Capsule(s) PO QW 03/16/2016 07/14/2016 Inactive Zocor 20 mg tablet RxNorm: 438580 1 Tablet(s) PO daily 03/16/2016 10/11/2016 Inactive levothyroxine 112 mcg tablet RxNorm: 181458 TAKE ONE TABLET BY MOUTH DAILY 01/07/2016 12/31/2016 Inactive indapamide 1.25 mg tablet RxNorm: 419823 1 Tablet(s) PO daily 12/03/2015 03/31/2016 Inactive Vitamin D2 50,000 unit capsule RxNorm: 131824 1 Capsule(s) PO QW 09/26/2015 09/25/2015 Inactive Lipitor 10 mg tablet RxNorm: 895284 1 Tablet(s) PO daily 09/26/2015 03/15/2016 Inactive Vitamin D2 50,000 unit capsule RxNorm: 958010 1 Capsule(s) PO QW 09/26/2015 03/15/2016 Inactive enalapril maleate 5 mg tablet RxNorm: 715916 1 Tablet(s) PO daily 08/06/2015 07/30/2016 Inactive levothyroxine 112 mcg tablet RxNorm: 779337 1 Tablet(s) PO daily 04/04/2015 10/30/2015 Inactive Vitamin D3 2,000 unit capsule RxNorm: 667851 1 Capsule(s) PO daily No Start Date Active aspirin 500 mg tablet RxNorm: 654619 1 Tablet(s) PO daily No Start Date Active Co Q-10 oral RxNorm: 09131 oral No Start Date Active Phenergan-Codeine 6.25 mg-10 mg/5 mL syrup RxNorm: 259587 5-10 Milliliter(s) PO Q6 as needed cough No Start Date 11/08/2017 Inactive Lipitor 20 mg tablet RxNorm: 963766 1 Tablet(s) PO daily No Start Date 09/14/2015 Inactive indapamide 1.25 mg tablet RxNorm: 738762 1 Tablet(s) PO daily No Start Date 12/02/2015 Inactive enalapril maleate 5 mg tablet RxNorm: 999711 1 Tablet(s) PO daily No Start Date 08/05/2015 Inactive levothyroxine 112 mcg tablet RxNorm: 373852 1 Tablet(s) PO daily No Start Date 04/03/2015 Inactive Medication Administered Medication Codes Instructions Start Date Status Kenalog 40 mg/mL suspension for injection RxNorm: 4467060 1Milliliter 01/27/2017 No longer Active Immunizations Vaccine Codes Date Status Influenza CVX: 141 07/27/2018 completed Influenza CVX: 141 08/04/2017 completed Influenza CVX: 141 07/15/2016 completed Pneumococcal CVX: 133 07/25/2015 completed Zoster CVX: 121 07/25/2015 completed Assessments Condition Codes Effective Dates Lumbago with sciatica, right side ICD-10: M54.41 ICD-9: 724.3 10/26/2018 Type 2 diabetes mellitus with diabetic polyneuropathy ICD-10: E11.42 ICD-9: 250.60 10/26/2018 Mixed hyperlipidemia ICD-10: E78.2 ICD-9: 272.2 10/26/2018 Hypothyroidism, unspecified ICD-10: E03.9 ICD-9: 244.9 10/26/2018 Essential (primary) hypertension ICD-10: I10 ICD-9: 401.1 10/26/2018 Encounter for screening mammogram for malignant [...] Visit Reason For Visit Effective Dates Notes diabetes mellitus 10/26/2018 vaccination against influenza 07/27/2018 diabetes mellitus 07/20/2018 diabetes mellitus 04/14/2018 diabetes mellitus 02/06/2018 diabetes mellitus 01/12/2018 diabetes mellitus 08/04/2017 abdominal pain 07/19/2017 diabetes mellitus 05/05/2017 hypertension 01/27/2017 hypertension 07/15/2016 hypertension 03/16/2016 fatigue 09/15/2015 diabetes mellitus 03/17/2015 Results Observation Observation Code Item Item Code Result Date Tsh Ord6 TSH (3rd IS) 2.55 uIU/mL 10/27/2018 Free T4 Aue884 FREE T4 1.07 ng/dL 10/27/2018 Comp Metabolic Wes931 NA 138 mEq/L 10/26/2018 Comp Metabolic Tga133 K 4.3 mEq/L 10/26/2018 Comp Metabolic Kdj342 CL 102 mEq/L 10/26/2018 Comp Metabolic Ehg450 CO2 26.0 mEq/L 10/26/2018 Comp Metabolic Lys780 ANION GAP 14 10/26/2018 Comp Metabolic Wot083 GLUCOSE 88 mg/dL 10/26/2018 Comp Metabolic Yhr145 Creat 0.9 mg/dL 10/26/2018 Comp Metabolic Orz303 eGFR 63 ml/min/1.73m2 10/26/2018 Comp Metabolic Dmm465 BUN 25 mg/dL 10/26/2018 Comp Metabolic Mgg253 B/C Ratio 26.6 Ratio 10/26/2018 Comp Metabolic Ozf885 CALCIUM 10.1 mg/dL 10/26/2018 Comp Metabolic Dui467 ALK PHOS 77 U/L 10/26/2018 Comp Metabolic Vzu257 AST(SGOT) 16 U/L 10/26/2018 Comp Metabolic Ifk046 ALT(SGPT) 16 U/L 10/26/2018 Comp Metabolic Qyd385 BILI T 0.5 mg/dL 10/26/2018 Comp Metabolic Ghp593 ALBUMIN 4.3 g/dL 10/26/2018 Comp Metabolic Umk277 TPRO 6.8 g/dL 10/26/2018 Comp Metabolic Otj087 GLOB 2.5 g/dL 10/26/2018 Comp Metabolic Imb802 A/G Ratio 1.7 Ratio 10/26/2018 Comp Metabolic Gcr362 Osmo 279 mOsmo 10/26/2018 %Hba1C Ych163 % HbA1c 01628- 6 5.2 % 10/26/2018 %Hba1C Aaa739 Gluc Ave 103 mg/dL 10/26/2018 Cbc With [...] 29.1 pg 10/26/2018 Cbc With Differential Ord2 [place]% 9.6 % 10/26/2018 Cbc With Differential Ord2 [...] 1.94 K/ul 10/26/2018 Cbc With Differential Ord2 [place] ABS# 0.6 K/ul 10/26/2018 Cbc With Differential Ord2 Eos ABS# 0.1 K/ul 10/26/2018 Cbc With Differential Ord2 Baso ABS# 0.0 K/ul 10/26/2018 Lipid Ord30 CHOL 238 mg/dL 10/26/2018 Lipid Ord30 HDL 42.0 mg/dl 10/26/2018 Lipid Ord30 TRIG 270 mg/dL 10/26/2018 Lipid Ord30 LDL 142 mg/dL 10/26/2018 Lipid Ord30 C/HDL 5.7 Ratio 10/26/2018 %Hba1C Oke802 % HbA1c 52166- 6 5.3 % 07/20/2018 %Hba1C Vkm955 Gluc Ave 105 mg/dL 07/20/2018 Comp Metabolic Jum678 NA 139 mEq/L 07/20/2018 Comp Metabolic Xyx740 K 5.1 mEq/L 07/20/2018 Comp Metabolic Dbw110 CL 106 mEq/L 07/20/2018 Comp Metabolic Cha366 CO2 19.0 mEq/L 07/20/2018 Comp Metabolic Qmv950 ANION GAP 19 07/20/2018 Comp Metabolic Okc203 GLUCOSE 88 mg/dL 07/20/2018 Comp Metabolic Dza193 Creat 0.8 mg/dL 07/20/2018 Comp Metabolic Ehx827 eGFR 77 ml/min/1.73m2 07/20/2018 Comp Metabolic Ljb258 BUN 25 mg/dL 07/20/2018 Comp Metabolic Wig144 B/C Ratio 31.6 Ratio 07/20/2018 Comp Metabolic Dqi681 CALCIUM 10.0 mg/dL 07/20/2018 Comp Metabolic Ndh897 ALK PHOS 81 U/L 07/20/2018 Comp Metabolic Jtx435 AST(SGOT) 26 U/L 07/20/2018 Comp Metabolic Sun117 ALT(SGPT) 16 U/L 07/20/2018 Comp Metabolic Jhe858 BILI T 0.5 mg/dL 07/20/2018 Comp Metabolic Qsq838 ALBUMIN 4.5 g/dL 07/20/2018 Comp Metabolic Nlm540 TPRO 7.2 g/dL 07/20/2018 Comp Metabolic Pvi875 GLOB 2.7 g/dL 07/20/2018 Comp Metabolic Mhq848 A/G Ratio 1.6 Ratio 07/20/2018 Comp Metabolic Kzc776 Osmo 281 mOsmo 07/20/2018 Free T4 Btm769 FREE T4 1.00 ng/dL 07/20/2018 Tsh Ord6 TSH (3rd IS) 2.05 uIU/mL 07/20/2018 Vitamin D 25 Oh Dhp6491 VITAMIN D, 25 HYDROXY 57.07 ng/mL 07/20/2018 Lipid Ord30 CHOL 242 mg/dL 07/20/2018 Lipid Ord30 HDL 43.0 mg/dl 07/20/2018 Lipid Ord30 TRIG 314 mg/dL 07/20/2018 Lipid Ord30 LDL 136 mg/dL 07/20/2018 Lipid Ord30 C/HDL 5.6 Ratio 07/20/2018 Free T4 Hln347 FREE T4 1.24 ng/dL 04/14/2018 Tsh Ord6 TSH (3rd IS) 0.65 uIU/mL 04/14/2018 %Hba1C Wal066 % HbA1c 29498- 6 5.1 % 01/12/2018 %Hba1C Pxs978 Gluc Ave 100 mg/dL 01/12/2018 Free T4 Edm540 FREE T4 0.97 ng/dL 01/12/2018 Lipid Ord30 [...] 58.0 % 01/12/2018 Cbc With Differential Ord2 Lymph% 29.5 % 01/12/2018 Cbc With Differential Ord2 MCV 89.3 fl 01/12/2018 Cbc With Differential Ord2 MCH 29.7 pg 01/12/2018 Cbc With Differential Ord2 [place]% 10.3 % 01/12/2018 Cbc With Differential Ord2 MCHC 33.3 pg 01/12/2018 Cbc With Differential Ord2 Eos% 1.8 % 01/12/2018 Cbc With Differential Ord2 PLT 205 K/ul 01/12/2018 Cbc With Differential Ord2 Baso% 0.4 % 01/12/2018 Cbc With Differential Ord2 Neut ABS# 4.72 K/ul 01/12/2018 Cbc With Differential Ord2 RDW 14.7 % 01/12/2018 Cbc With Differential Ord2 Lymph ABS# 2.40 K/ul 01/12/2018 Cbc With Differential Ord2 [place] ABS# 0.8 K/ul 01/12/2018 Cbc With Differential Ord2 Eos ABS# 0.2 K/ul 01/12/2018 Cbc With Differential Ord2 Baso ABS# 0.0 K/ul 01/12/2018 Comp Metabolic Idx855 NA 138 mEq/L 01/12/2018 Comp Metabolic Mtv426 K 4.1 mEq/L 01/12/2018 Comp Metabolic Voe026 CL 100 mEq/L 01/12/2018 Comp Metabolic Yem479 CO2 28.0 mEq/L 01/12/2018 Comp Metabolic Xzq777 ANION GAP 14 01/12/2018 Comp Metabolic Okn347 GLUCOSE 84 mg/dL 01/12/2018 Comp Metabolic Bno397 Creat 0.8 mg/dL 01/12/2018 Comp Metabolic Hwa431 eGFR 78 ml/min/1.73m2 01/12/2018 Comp Metabolic Kxm261 BUN 20 mg/dL 01/12/2018 Comp Metabolic Axi757 B/C Ratio 25.6 Ratio 01/12/2018 Comp Metabolic Lre452 CALCIUM 9.6 mg/dL 01/12/2018 Comp Metabolic Sty168 ALK PHOS 76 U/L 01/12/2018 Comp Metabolic Ddp964 AST(SGOT) 16 U/L 01/12/2018 Comp Metabolic Bdf754 ALT(SGPT) 16 U/L 01/12/2018 Comp Metabolic Ojz131 BILI T 0.4 mg/dL 01/12/2018 Comp Metabolic Dsl748 ALBUMIN 4.1 g/dL 01/12/2018 Comp Metabolic Ino322 TPRO 6.7 g/dL 01/12/2018 Comp Metabolic Uvf607 GLOB 2.6 g/dL 01/12/2018 Comp Metabolic Unh561 A/G Ratio 1.6 Ratio 01/12/2018 Comp Metabolic Zdd073 Osmo 277 mOsmo 01/12/2018 Free T4 Nhq087 FREE T4 1.40 ng/dL 08/05/2017 %Hba1C Cux327 % HbA1c 53770- 6 5.0 % 08/05/2017 %Hba1C Lxn603 Gluc Ave 97 mg/dL 08/05/2017 Cbc With [...] 29.5 pg 08/03/2017 Cbc With Differential Ord2 [place]% 9.3 % 08/03/2017 Cbc With Differential Ord2 [...] 2.10 K/ul 08/03/2017 Cbc With Differential Ord2 [place] ABS# 0.7 K/ul 08/03/2017 Cbc With Differential Ord2 Eos ABS# 0.1 K/ul 08/03/2017 Cbc With Differential Ord2 Baso ABS# 0.0 K/ul 08/03/2017 Vitamin D 25 Oh Dhh6498 VITAMIN D, 25 HYDROXY 52.73 ng/mL 08/03/2017 Lipid Ord30 CHOL 215 mg/dL 08/03/2017 Lipid Ord30 HDL 43.0 mg/dl 08/03/2017 Lipid Ord30 TRIG 278 mg/dL 08/03/2017 Lipid Ord30 LDL 116 mg/dL 08/03/2017 Lipid Ord30 C/HDL 5.0 Ratio 08/03/2017 Comp Metabolic Nen556 NA 137 mEq/L 08/03/2017 Comp Metabolic Obh353 K 4.3 mEq/L 08/03/2017 Comp Metabolic Rqg258 CL 102 mEq/L 08/03/2017 Comp Metabolic Lrf108 CO2 24.0 mEq/L 08/03/2017 Comp Metabolic Gzk271 ANION GAP 15 08/03/2017 Comp Metabolic Dmo103 GLUCOSE 80 mg/dL 08/03/2017 Comp Metabolic Ixq739 Creat 0.9 mg/dL 08/03/2017 Comp Metabolic Lre139 eGFR 68 ml/min/1.73m2 08/03/2017 Comp Metabolic Bwb300 BUN 18 mg/dL 08/03/2017 Comp Metabolic Bpd687 B/C Ratio 20.5 Ratio 08/03/2017 Comp Metabolic Avd104 CALCIUM 9.7 mg/dL 08/03/2017 Comp Metabolic Hfb861 ALK PHOS 68 U/L 08/03/2017 Comp Metabolic Htu698 AST(SGOT) 14 U/L 08/03/2017 Comp Metabolic Kav668 ALT(SGPT) 14 U/L 08/03/2017 Comp Metabolic Tbq249 BILI T 0.6 mg/dL 08/03/2017 Comp Metabolic Unp143 ALBUMIN 4.0 g/dL 08/03/2017 Comp Metabolic Obi929 TPRO 6.4 g/dL 08/03/2017 Comp Metabolic Rds189 GLOB 2.4 g/dL 08/03/2017 Comp Metabolic Rgr974 A/G Ratio 1.7 Ratio 08/03/2017 Comp Metabolic Fyt824 Osmo 275 mOsmo 08/03/2017 Tsh Ord6 hTSH II 0.09 uIU/mL 08/03/2017 %Hba1C Iay162 % HbA1c 44772- 6 5.1 % 01/06/2017 %Hba1C Lvj407 Gluc Ave 100 mg/dL 01/06/2017 Free T4 Zwr174 FREE T4 0.96 ng/dL 01/06/2017 Cbc With Differential Ord2 WBC 6.32 K/ul 01/06/2017 Cbc With Differential Ord2 RBC 4.63 M/ul 01/06/2017 Cbc With Differential Ord2 HGB 13.7 g/dl 01/06/2017 Cbc With Differential Ord2 Neut% 58.8 % 01/06/2017 Cbc With Differential Ord2 HCT 41.1 % 01/06/2017 Cbc With Differential Ord2 MCV 88.8 fl 01/06/2017 Cbc With Differential Ord2 Lymph% 29.3 % 01/06/2017 Cbc With Differential Ord2 [place]% 9.2 % 01/06/2017 Cbc With Differential Ord2 MCH 29.6 pg 01/06/2017 Cbc With Differential Ord2 Eos% 2.2 % 01/06/2017 Cbc With Differential Ord2 MCHC 33.3 pg 01/06/2017 Cbc With Differential Ord2 PLT 215 K/ul 01/06/2017 Cbc With Differential Ord2 Baso% 0.5 % 01/06/2017 Cbc With Differential Ord2 RDW 14.6 % 01/06/2017 Cbc With Differential Ord2 Neut ABS# 3.72 K/ul 01/06/2017 Cbc With Differential Ord2 Lymph ABS# 1.85 K/ul 01/06/2017 Cbc With Differential Ord2 [place] ABS# 0.6 K/ul 01/06/2017 Cbc With Differential Ord2 Eos ABS# 0.1 K/ul 01/06/2017 Cbc With Differential Ord2 Baso ABS# 0.0 K/ul 01/06/2017 Vitamin D 25 Oh Cys9144 VITAMIN D, 25 HYDROXY 35.10 ng/mL 01/06/2017 Comp Metabolic Alc700 NA 140 mEq/L 01/06/2017 Comp Metabolic Dog122 K 4.3 mEq/L 01/06/2017 Comp Metabolic Kww952 CL 103 mEq/L 01/06/2017 Comp Metabolic Ans661 CO2 29.0 mEq/L 01/06/2017 Comp Metabolic Fjr557 ANION GAP 12 01/06/2017 Comp Metabolic Uoa917 GLUCOSE 86 mg/dL 01/06/2017 Comp Metabolic Qrv997 Creat 0.8 mg/dL 01/06/2017 Comp Metabolic Tot687 eGFR 82 ml/min/1.73m2 01/06/2017 Comp Metabolic Ooc115 BUN 19 mg/dL 01/06/2017 Comp Metabolic Eco117 B/C Ratio 25.3 Ratio 01/06/2017 Comp Metabolic Bpy164 CALCIUM 9.6 mg/dL 01/06/2017 Comp Metabolic Cks209 ALK PHOS 77 U/L 01/06/2017 Comp Metabolic Fbz267 AST(SGOT) 16 U/L 01/06/2017 Comp Metabolic Sra543 ALT(SGPT) 18 U/L 01/06/2017 Comp Metabolic Cfg271 BILI T 0.4 mg/dL 01/06/2017 Comp Metabolic Snp158 ALBUMIN 4.1 g/dL 01/06/2017 Comp Metabolic Nsg475 TPRO 6.7 g/dL 01/06/2017 Comp Metabolic Xyy178 GLOB 2.6 g/dL 01/06/2017 Comp Metabolic Ran759 A/G Ratio 1.6 Ratio 01/06/2017 Comp Metabolic Dme728 Osmo 281 mOsmo 01/06/2017 Tsh Ord6 hTSH II 0.99 uIU/mL 01/06/2017 Lipid Ord30 CHOL 223 mg/dL 01/06/2017 Lipid Ord30 HDL 44.0 mg/dl 01/06/2017 Lipid Ord30 TRIG 292 mg/dL 01/06/2017 Lipid Ord30 LDL 121 mg/dL 01/06/2017 Lipid Ord30 C/HDL 5.1 Ratio 01/06/2017 Vitamin D 25 Oh Rku2273 VITAMIN D, 25 HYDROXY 42.77 ng/mL 07/09/2016 Free T4 Tlr382 FREE T4 1.23 ng/dL 07/08/2016 %Hba1C Kpe096 % HbA1c 98777- 6 5.4 % 07/08/2016 %Hba1C Pdy368 Gluc Ave 108 mg/dL 07/08/2016 Cbc With Differential Ord2 WBC 6.90 K/ul 07/08/2016 Cbc With Differential Ord2 RBC 4.60 M/ul 07/08/2016 Cbc With Differential Ord2 HGB 13.7 g/dl 07/08/2016 Cbc With Differential Ord2 HCT 40.5 % 07/08/2016 Cbc With Differential Ord2 Neut% 60.0 % 07/08/2016 Cbc With Differential Ord2 Lymph% 27.4 % 07/08/2016 Cbc With Differential Ord2 MCV 88.0 fl 07/08/2016 Cbc With Differential Ord2 [place]% 10.1 % 07/08/2016 Cbc With Differential Ord2 MCH 29.8 pg 07/08/2016 Cbc With Differential Ord2 MCHC 33.8 pg 07/08/2016 Cbc With Differential Ord2 Eos% 2.2 % 07/08/2016 Cbc With Differential Ord2 PLT 193 K/ul 07/08/2016 Cbc With Differential Ord2 Baso% 0.3 % 07/08/2016 Cbc With Differential Ord2 Neut ABS# 4.14 K/ul 07/08/2016 Cbc With Differential Ord2 RDW 14.4 % 07/08/2016 Cbc With Differential Ord2 Lymph ABS# 1.89 K/ul 07/08/2016 Cbc With Differential Ord2 [place] ABS# 0.7 K/ul 07/08/2016 Cbc With Differential Ord2 Eos ABS# 0.2 K/ul 07/08/2016 Cbc With Differential Ord2 Baso ABS# 0.0 K/ul 07/08/2016 Lipid Ord30 CHOL 210 mg/dL 07/08/2016 Lipid Ord30 HDL 41.0 mg/dl 07/08/2016 Lipid Ord30 TRIG 257 mg/dL 07/08/2016 Lipid Ord30 LDL 118 mg/dL 07/08/2016 Lipid Ord30 C/HDL 5.1 Ratio 07/08/2016 Tsh Ord6 hTSH II 0.21 uIU/mL 07/08/2016 Comp Metabolic Jxz510 NA 136 mEq/L 07/08/2016 Comp Metabolic Uer670 K 4.1 mEq/L 07/08/2016 Comp Metabolic Dtr506 CL 103 mEq/L 07/08/2016 Comp Metabolic Zxs770 CO2 26.0 mEq/L 07/08/2016 Comp Metabolic Qcs543 ANION GAP 11 07/08/2016 Comp Metabolic Lix430 GLUCOSE 83 mg/dL 07/08/2016 Comp Metabolic Izr615 Creat 0.8 mg/dL 07/08/2016 Comp Metabolic Dni236 eGFR 80 ml/min/1.73m2 07/08/2016 Comp Metabolic Fzs764 BUN 22 mg/dL 07/08/2016 Comp Metabolic Bte177 B/C Ratio 28.9 Ratio 07/08/2016 Comp Metabolic Vpn785 CALCIUM 9.8 mg/dL 07/08/2016 Comp Metabolic Pnk487 ALK PHOS 75 U/L 07/08/2016 Comp Metabolic Eam290 AST(SGOT) 14 U/L 07/08/2016 Comp Metabolic Yjm910 ALT(SGPT) 15 U/L 07/08/2016 Comp Metabolic Mbz232 BILI T 0.4 mg/dL 07/08/2016 Comp Metabolic Uoi615 ALBUMIN 4.1 g/dL 07/08/2016 Comp Metabolic Idb119 TPRO 6.6 g/dL 07/08/2016 Comp Metabolic Xlq004 GLOB 2.5 g/dL 07/08/2016 Comp Metabolic Njn746 A/G Ratio 1.7 Ratio 07/08/2016 Comp Metabolic Qzk618 Osmo 274 mOsmo 07/08/2016 Vitamin D 25 Oh Lle2245 VITAMIN D, 25 HYDROXY 34.38 ng/mL 03/10/2016 %Hba1C Dyi213 % HbA1c 62654- 6 5.3 % 03/09/2016 %Hba1C Yef102 Gluc Ave 105 mg/dL 03/09/2016 Comp Metabolic Bbb164 NA 137 mEq/L 03/09/2016 Comp Metabolic Qea707 K 4.5 mEq/L 03/09/2016 Comp Metabolic Oqr375 CL 104 mEq/L 03/09/2016 Comp Metabolic Nyy261 CO2 27.0 mEq/L 03/09/2016 Comp Metabolic Gip278 ANION GAP 11 03/09/2016 Comp Metabolic Jnb099 GLUCOSE 86 mg/dL 03/09/2016 Comp Metabolic Epy535 Creat 0.8 mg/dL 03/09/2016 Comp Metabolic Nal003 eGFR 81 ml/min/1.73m2 03/09/2016 Comp Metabolic Ops151 BUN 23 mg/dL 03/09/2016 Comp Metabolic Xkn165 B/C Ratio 30.3 Ratio 03/09/2016 Comp Metabolic Kav585 CALCIUM 9.4 mg/dL 03/09/2016 Comp Metabolic Qpq714 ALK PHOS 69 U/L 03/09/2016 Comp Metabolic Wag262 AST(SGOT) 14 U/L 03/09/2016 Comp Metabolic Zyl471 ALT(SGPT) 14 U/L 03/09/2016 Comp Metabolic Ugj045 BILI T 0.4 mg/dL 03/09/2016 Comp Metabolic Zcz788 ALBUMIN 4.1 g/dL 03/09/2016 Comp Metabolic Stv915 TPRO 6.6 g/dL 03/09/2016 Comp Metabolic Bud119 GLOB 2.5 g/dL 03/09/2016 Comp Metabolic Kzb859 A/G Ratio 1.6 Ratio 03/09/2016 Comp Metabolic Uwr170 Osmo 277 mOsmo 03/09/2016 Tsh Ord6 hTSH II 0.38 uIU/mL 03/09/2016 Lipid Ord30 CHOL 283 mg/dL 03/09/2016 Lipid Ord30 HDL 40.0 mg/dl 03/09/2016 Lipid Ord30 TRIG 271 mg/dL 03/09/2016 Lipid Ord30 LDL 189 mg/dL 03/09/2016 Lipid Ord30 C/HDL 7.1 Ratio 03/09/2016 Cbc With Differential Ord2 WBC 8.22 [...] 28.9 pg 03/09/2016 Cbc With Differential Ord2 [place]% 11.1 % 03/09/2016 Cbc With Differential Ord2 [...] 2.16 K/ul 03/09/2016 Cbc With Differential Ord2 [place] ABS# 0.9 K/ul 03/09/2016 Cbc With Differential Ord2 Eos ABS# 0.1 K/ul 03/09/2016 Cbc With Differential Ord2 Baso ABS# 0.0 K/ul 03/09/2016 Comp Metabolic Ghu253 NA 137 mEq/L 09/15/2015 Comp Metabolic Dfr519 K 4.4 mEq/L 09/15/2015 Comp Metabolic Thy495 CL 101 mEq/L 09/15/2015 Comp Metabolic Zkx130 CO2 28.0 mEq/L 09/15/2015 Comp Metabolic Qlm829 ANION GAP 12 09/15/2015 Comp Metabolic Umo015 GLUCOSE 89 mg/dL 09/15/2015 Comp Metabolic Twb013 Creat 0.8 mg/dL 09/15/2015 Comp Metabolic Kaw878 eGFR 73 ml/min/1.73m2 09/15/2015 Comp Metabolic Bwu966 BUN 20 mg/dL 09/15/2015 Comp Metabolic Pyf459 B/C Ratio 24.1 Ratio 09/15/2015 Comp Metabolic Wnb404 CALCIUM 10.1 mg/dL 09/15/2015 Comp Metabolic Gia615 ALK PHOS 72 U/L 09/15/2015 Comp Metabolic Nor071 AST(SGOT) 16 U/L 09/15/2015 Comp Metabolic Den866 ALT(SGPT) 15 U/L 09/15/2015 Comp Metabolic Siv875 BILI T 0.5 mg/dL 09/15/2015 Comp Metabolic Aht061 ALBUMIN 4.4 g/dL 09/15/2015 Comp Metabolic Dna482 TPRO 7.0 g/dL 09/15/2015 Comp Metabolic Ozd670 GLOB 2.6 g/dL 09/15/2015 Comp Metabolic Yxz197 A/G Ratio 1.7 Ratio 09/15/2015 Comp Metabolic Lqk767 Osmo 276 mOsmo 09/15/2015 Tsh Ord6 hTSH II 2.99 uIU/mL 09/15/2015 Vitamin D 25 Oh Rqp0377 VITAMIN D, 25 HYDROXY 30.19 ng/mL 09/15/2015 [...] Lipid Ord30 C/HDL 7.0 Ratio 09/15/2015 %Hba1C Ywg794 % HbA1c 39702- 6 5.2 % 09/15/2015 %Hba1C Wlf576 Gluc Ave 103 mg/dL 09/15/2015 Review of Systems System Result Effective Dates Musculoskeletal back pain 10/26/2018 Musculoskeletal sciatica 10/26/2018 [...] clear 02/06/2018 None Full Exam - General 1995 Ears/Nose/Throat [...] masses 03/17/2015 None Full Exam - General 1995 Ears/Nose/Throat [...] Formatting Model/CDA Sections, Assigned to/Margarita Brock CPT-4: [id number] 07/27/2018 FLU VAC NO PRSV 4 SHANNON 3 YRS+ CPT-4: 45335 08/04/2017 ADMIN INFLUENZA VIRUS VAC CPT-4: G0008 08/04/2017 TRIAMCINOLONE ACET INJ NOS CPT-4: J3301 01/27/2017 THER/PROPH/DIAG INJ SC/IM CPT-4: 75401 01/27/2017 ADMIN INFLUENZA VIRUS VAC CPT-4: G0008 07/15/2016 FLU VACC 4 SHANNON 3 YRS PLUS IM SNOMED CT: [id number] CPT-4: 25650 07/15/2016 Vital Signs Date Vital 10/26/2018 Blood Pressure 1: 132/76 Code: 8480-6 BMI: 34.5 Code: 38396-4 Heart Rate 1: 55 bpm Height: 5'4" SpO2: 99% Weight: 204 lbs 07/20/2018 Blood Pressure 1: 116/74 Code: 8480-6 BMI: 34.5 Code: 57442-3 Heart Rate 1: 52 bpm Height: 5'4" SpO2: 99% Weight: 204 lbs 04/14/2018 Blood Pressure 1: 128/76 Code: 8480-6 BMI: 34.5 Code: 38914-9 Heart Rate 1: 67 bpm Height: 5'4" SpO2: 95% Weight: 204 lbs 02/06/2018 Blood Pressure 1: 142/78 Code: 8480-6 BMI: 35.2 Code: 86628-7 Heart Rate 1: 58 bpm Height: 5'4" SpO2: 98% Weight: 208 lbs 01/12/2018 Blood Pressure 1: 132/82 Code: 8480-6 BMI: 34.8 Code: 14370-8 Height: 5'4" Weight: 206 lbs 08/04/2017 Blood Pressure 1: 140/82 Code: 8480-6 BMI: 31.9 Code: 01057-6 Heart Rate 1: 58 bpm Height: 5'4" SpO2: 99% Weight: 188 lbs 8 oz 07/19/2017 Blood Pressure 1: 136/76 Code: 8480-6 BMI: 32.0 Code: 53761-1 Heart Rate 1: 67 bpm Height: 5'4" SpO2: 97% Weight: 189 lbs 8 oz 05/05/2017 Blood Pressure 1: 142/80 Code: 8480-6 BMI: 32.4 Code: 58884-6 Heart Rate 1: 54 bpm Height: 5'4" SpO2: 98% Weight: 191 lbs 8 oz 01/27/2017 Blood Pressure 1: 132/82 Code: 8480-6 BMI: 34.1 Code: 08223-6 Heart Rate 1: 55 bpm Height: 5'4" SpO2: 99% Weight: 202 lbs 07/15/2016 Blood Pressure 1: 128/72 Code: 8480-6 BMI: 34.4 Code: 14081-6 Heart Rate 1: 50 bpm Height: 5'4" SpO2: 98% Weight: 203 lbs 8 oz 03/16/2016 Blood Pressure 1: 118/78 Code: 8480-6 BMI: 34.5 Code: 81375-4 Heart Rate 1: 55 bpm Height: 5'4" SpO2: 98% Weight: 204 lbs 09/15/2015 Blood Pressure 1: 134/72 Code: 8480-6 BMI: 34.6 Code: 83195-3 Heart Rate 1: 52 bpm Height: 5'4" SpO2: 99% Weight: 205 lbs 03/17/2015 Blood Pressure 1: 128/74 Code: 8480-6 BMI: 35.8 Code: 16652-7 Heart Rate 1: 59 bpm Height: 5'4" SpO2: 98% Weight: 212 lbs Functional Status No Functional Status data History of Present Illness Symptom Name Status Result Effective Date Notes Quality non-insulin dependent 10/26/2018 None Quality chronic [...] Directive data Encounters Encounter Performer Location Codes ([id number]) 00027 EST. PATIENT, LEVEL IV Diagnosis: Essential (primary) hypertension[ICD10: I10] Diagnosis: Type 2 diabetes mellitus with diabetic polyneuropathy[ICD10: E11.42] Diagnosis: Hypothyroidism, unspecified[ICD10: E03.9] Diagnosis: Mixed hyperlipidemia[ICD10: E78.2] Diagnosis: Lumbago with sciatica, right side[ICD10: M54.41] Delmis Bermudez MD, [facility] CPT-4: 59344 10/26/2018 ([id number]) 57548 EST. PATIENT, LEVEL IV Diagnosis: Type 2 diabetes mellitus with diabetic polyneuropathy[ICD10: E11.42] Diagnosis: Mixed hyperlipidemia[ICD10: E78.2] Diagnosis: Essential (primary) hypertension[ICD10: I10] Diagnosis: Vitamin D deficiency, unspecified[ICD10: E55.9] Diagnosis: Hypothyroidism, unspecified[ICD10: E03.9] Delmis Bermudez MD, [facility] CPT-4: 27939 07/20/2018 ([id number]) 26028 EST. PATIENT, LEVEL IV Diagnosis: Essential (primary) hypertension[ICD10: I10] Diagnosis: Hypothyroidism, unspecified[ICD10: E03.9] Diagnosis: Mixed hyperlipidemia[ICD10: E78.2] Delmis Bermudez MD, [facility] CPT- 4: 84034 04/14/2018 ([id number]) 30065 EST. PATIENT, LEVEL III Diagnosis: Type 2 diabetes mellitus with diabetic polyneuropathy[ICD10: E11.42] Delmis Bermudez MD, [facility] CPT-4: 87198 02/06/2018 ([id number]) 90627 EST. PATIENT, LEVEL IV Diagnosis: Mixed hyperlipidemia[ICD10: E78.2] Diagnosis: Hypothyroidism, unspecified[ICD10: E03.9] Diagnosis: Type 2 diabetes mellitus without complications[ICD10: E11.9] Delmis Bermudez MD, [facility] CPT-4: 61678 01/12/2018 ([id number]) 07551 EST. PATIENT, LEVEL IV Diagnosis: Essential (primary) hypertension[ICD10: I10] Diagnosis: Mixed hyperlipidemia[ICD10: E78.2] Diagnosis: Hypothyroidism, unspecified[ICD10: E03.9] Diagnosis: Type 2 diabetes mellitus without complications[ICD10: E11.9] Diagnosis: Encounter for immunization[ICD10: Z23] Delmis Bermudez MD, [facility] CPT-4: 99679 08/04/2017 ([id number]) 36018 EST. PATIENT, LEVEL III Diagnosis: Diverticulitis of large intestine without perforation or abscess without bleeding[ICD10: K57.32] Delmis Bermudez MD, [facility] CPT-4: 37284 07/19/2017 ([id number]) 45899 EST. PATIENT, LEVEL III Diagnosis: Type 2 diabetes mellitus with diabetic polyneuropathy[ICD10: E11.42] Delmis Bermudez MD, [facility] CPT-4: 25315 05/05/2017 ([id number]) 58397 EST. PATIENT, LEVEL IV Diagnosis: Essential (primary) hypertension[ICD10: I10] Diagnosis: Type 2 diabetes mellitus without complications[ICD10: E11.9] Diagnosis: Mixed hyperlipidemia[ICD10: E78.2] Diagnosis: Allergic rhinitis due to pollen[ICD10: J30.1] Ria Bermudez MD, [facility] CPT-4: 18429 01/27/2017 ([id number]) 78658 EST. PATIENT, LEVEL IV Diagnosis: Type 2 diabetes mellitus without complications[ICD10: E11.9] Diagnosis: Essential (primary) hypertension[ICD10: I10] Diagnosis: Mixed hyperlipidemia[ICD10: E78.2] Ria Bermudez MD, [facility] CPT- 4: 51055 07/15/2016 ([id number]) 67308 EST. PATIENT, LEVEL IV Diagnosis: Type 2 diabetes mellitus without complications[ICD10: E11.9] Diagnosis: Polyneuropathy, unspecified[ICD10: G62.9] Diagnosis: Mixed hyperlipidemia[ICD10: E78.2] Ria Bermudez MD, [facility] CPT- 4: 59607 03/16/2016 ([id number]) 57868 EST. PATIENT, LEVEL IV Diagnosis: Type 2 diabetes mellitus without complications[ICD10: E11.9] Diagnosis: Essential (primary) hypertension[ICD10: I10] Diagnosis: Vitamin D deficiency, unspecified[ICD10: E55.9] Diagnosis: Mixed hyperlipidemia[ICD10: E78.2] [facility] CPT- 4: 49302 09/15/2015 ([id number]) OFFICE VISIT, NEW - LEVEL 4 Diagnosis: ESSENTIAL HYPERTENSION[ICD9: 401.9] Diagnosis: Diabetes mellitus type 2, controlled[ICD9: 250.00] Diagnosis: Peripheral neuropathy[ICD9: 356.9] [facility] CPT- 4: 88062 03/17/2015 Plan of Care Planned Activity Notes [...] they worsen. 10/26/2018 Appointment: [phone] (15 min) Moderate 10/26/2018 Patient Education: [...] of control. 07/20/2018 Appointment: Delmis Her WPtel[facility] [phone] (15 min) Moderate 07/20/2018 Patient Education: [...] it 04/14/2018 Appointment: Delmis Her WPtel: [phone] [phone] (15 min) Moderate 04/14/2018 Patient Education: Patient Medication Summary Completed 04/14/2018 Visit Plan: Diabetic peripheral neuropathy -paperwork for diabetic shoes completed today in the office and will fax to Dr Briscoe's office- Patient verbalized understanding of plan. 02/06/2018 Appointment: Delmis Her WPtel: [phone] [phone] (15 min) Moderate 02/06/2018 Patient Education: Patient [...] of control. 01/12/2018 Appointment: Delmis Her WPtel: [phone] [phone] (30 min) Complex 01/12/2018 Patient Education: Patient [...] Delmis Her WPtel: [phone] (30 min) Complex 08/04/2017 Patient Education: Patient Medication Summary Completed 08/04/2017 Patient Education: Obesity Completed 08/04/2017 Care Plan: %Hba1C LOINC : 35090-9 Pending 08/04/2017 Visit Plan: Diverticulitis - rx [...] [facility]mis Her [facility] [phone] (30 min) Complex 07/19/2017 Patient Education: Patient Medication Summary Completed 07/19/2017 Patient Education: Obesity Completed 07/19/2017 Visit Plan: Diabetic peripheral neuropathy - diabetes paperwork completed today in the office-patient does want to start medication-RX for gabapentin sent electronically and provided and instructed on use. Patient verbalized understanding of plan. 05/05/2017 Appointment: Delmis Her WPtel: [phone] [phone] (30 min) Complex 05/05/2017 Patient Education: Patient Medication Summary Completed 05/05/2017 Patient Education: Obesity Completed 05/05/2017 Appointment: Delmis Her WPtel: [phone] [facility] - Annual Wellness Visit 01/28/2017 Visit [...] of kenalog 01/27/2017 Appointment: Ria Bermudez WPtel: [facility] (15 min) Moderate 01/27/2017 Patient Education: Patient Medication Summary Completed 01/27/2017 Patient Education: Obesity Completed 01/27/2017 Appointment: Ria Bermudez WPtel: [facility] (15 min) Moderate 01/11/2017 Visit Plan: [...] dications. 07/15/2016 Appointment: [phone] (15 min) Moderate 07/15/2016 Patient Education: Patient [...] this time. 03/16/2016 Appointment: [facility]ermudez [facility]Ptel[phone] (15 min) Moderate 03/16/2016 Patient Education: Patient [...] are starting to become less controlled. Peripheral rslqdtmgrh-NA-gfzbgbuw foot exam today in the office and [...] are starting to become less controlled. Peripheral mnaimeyjzu-VU-qvwqgcnl foot exam today in the office and [...] are starting to become less controlled. Peripheral hmkkshjonf-JC-sxhntvuk foot exam today in the office and paperwork completed for diabetic shoes-see scanned document 03/17/2015 Appointment: R[facility] Bermudez [facility]Ptel[phone] [place] [place] New Patient 03/17/2015 Patient Education: Patient Medication Summary Completed 03/17/2015 Patient Education: Hypertension Completed 03/17/2015 Instructions Comment DIABETIC FOOT EXAM DONE TODAY [...] are starting to become less controlled. Peripheral rbykphvwfi-LW-uuchdjqj foot exam today in the office and [...] are starting to become less controlled. Peripheral xofdbbnhzm-VV-pawpnwqz foot exam today in the office and [...] are starting to become less controlled. Peripheral acbdwdegoe-LJ-umnhhdli foot exam today in the office and [...] units daily. Allergies - shot of kenalog check labs today . Hypertension - well [...]
--- OUTSIDE RECORDS SUMMARY | 2019-04-04 07:18 | XMS REPORT | CCD ---
Author Author Delmis Her Organization Ria Bermudez MD, [facility] Address [address] [place] [address] Phone Care Team Providers Care Meter Reading Clerk Name Role Phone PP Unavailable CCM Unavailable Summary Purpose Interface Exchange Insurance Providers Payer name Policy type / Coverage type Covered alliance party ID Effective Begin Date Effective End Date WPS Medicare Part B Medicare Part B [id number] Unknown [facility] Medicare Part B [id number] Unknown Family history Son Diagnosis Age At [...] Unknown Retired 03/17/[address]: 618400752 Never smoker 03/17/[address]: 359023886 Never smoker 03/17/2015 Allergies, Adverse Reactions, Alerts Substance Reaction Codes Entered Date Inactivated Date Status * NO KNOWN FOOD ALLERGIES Unknown 03/17/2015 No Inactive Date Active ciprofloxacin RxNorm: 70485 03/17/2015 No Inactive Date Active Erythromycin RxNorm: 4053 03/17/2015 No Inactive Date Active Penicillin Unknown 03/17/2015 No Inactive Date Active HBAKUMT-JEO-EEI REDUCTASE INHIBITORS myalgias, Unknown 03/16/2016 No Inactive [...] Date Stop Date Status Fill Instructions levothyroxine 112 mcg tablet RxNorm: 885674 TAKE ONE TABLET BY MOUTH EVERY OTHER DAY ALTERNATE WITH 100MCG TABLET 12/07/2018 03/06/2019 Active Zetia 10 mg tablet RxNorm: 841421 1 Tablet(s) PO daily 10/26/2018 No Stop Date Active Zetia 10 mg tablet RxNorm: 975134 1/2 Tablet(s) PO daily 07/20/2018 10/25/2018 Inactive indapamide 1.25 mg tablet RxNorm: 247524 Tablet(s) TAKE ONE TABLET BY MOUTH DAILY 07/19/2018 07/13/2019 Active levothyroxine 112 mcg tablet RxNorm: 559569 TAKE ONE TABLET BY MOUTH EVERY OTHER DAY ALTERNATE WITH 100MCG TABLET 07/19/2018 11/15/2018 Inactive gabapentin 100 mg capsule RxNorm: 816348 TAKE ONE CAPSULE BY MOUTH EVERY NIGHT AT BEDTIME 06/05/2018 09/02/2018 Inactive Zetia 10 mg tablet RxNorm: 528060 1 Tablet(s) PO daily 05/11/2018 07/19/2018 Inactive Zetia 10 mg tablet RxNorm: 292581 1 Tablet(s) PO daily 05/11/2018 05/10/2018 Inactive enalapril maleate 5 mg tablet RxNorm: 779222 TAKE ONE TABLET BY MOUTH DAILY 04/05/2018 12/30/2018 Active indapamide 1.25 mg tablet RxNorm: 282965 TAKE ONE TABLET BY MOUTH DAILY 04/05/2018 07/18/2018 Inactive levothyroxine 100 mcg tablet RxNorm: 528882 Tablet(s) TAKE ONE TABLET BY MOUTH EVERY OTHER DAY. ALTERNATE WITH 112 MCG TABLET. 01/24/2018 05/23/2018 Inactive levothyroxine 112 mcg tablet RxNorm: 684110 1 Tablet(s) PO every other day . ALTERNATE WITH 100 MCG TABLET. 01/24/2018 05/23/2018 Inactive Crestor 10 mg tablet RxNorm: 071752 1 Tablet(s) PO QHS 01/24/2018 04/13/2018 Inactive Crestor 10 mg tablet RxNorm: 251256 1 Tablet(s) PO QHS 01/24/2018 01/23/2018 Inactive gabapentin 100 mg capsule RxNorm: 417816 TAKE ONE CAPSULE BY MOUTH EVERY NIGHT AT BEDTIME 01/05/2018 06/04/2018 Inactive indapamide 1.25 mg tablet RxNorm: 645469 TAKE ONE TABLET BY MOUTH DAILY 01/05/2018 04/04/2018 Inactive Zocor 20 mg tablet RxNorm: 639695 TAKE ONE TABLET BY MOUTH DAILY 12/02/2017 01/11/2018 Inactive Phenergan-Codeine 6.25 mg-10 mg/5 mL syrup RxNorm: 238505 5-10 Milliliter(s) PO Q6 as needed cough 11/09/2017 No Stop Date Active Tamiflu 75 mg capsule RxNorm: 643309 1 Capsule(s) PO BID 11/09/2017 11/13/2017 Inactive Tamiflu 75 mg capsule RxNorm: 230371 1 Capsule(s) PO BID 11/09/2017 11/08/2017 Inactive levothyroxine 100 mcg tablet RxNorm: 385083 TAKE ONE TABLET BY MOUTH DAILY 10/28/2017 01/23/2018 Inactive indapamide 1.25 mg tablet RxNorm: 283550 TAKE ONE TABLET BY MOUTH DAILY 09/09/2017 01/04/2018 Inactive levothyroxine 100 mcg tablet RxNorm: 393250 1 Tablet(s) PO daily TAKE ONE TABLET BY MOUTH DAILY 08/04/2017 10/27/2017 Inactive Flagyl 500 mg tablet RxNorm: 639101 1 Tablet(s) PO TID 07/19/2017 07/28/2017 Inactive enalapril maleate 5 mg tablet RxNorm: 905528 TAKE ONE TABLET BY MOUTH DAILY 06/30/2017 12/26/2017 Inactive indapamide 1.25 mg tablet RxNorm: 918655 TAKE ONE TABLET BY MOUTH DAILY 05/26/2017 09/08/2017 Inactive Zocor 20 mg tablet RxNorm: 198930 TAKE ONE TABLET BY MOUTH DAILY 05/26/2017 10/22/2017 Inactive gabapentin 100 mg capsule RxNorm: 239924 1 Capsule(s) PO QHS 05/05/2017 09/01/2017 Inactive Kenalog 40 mg/mL suspension for injection RxNorm: 1640037 1 Milliliter(s) Inj 01/27/2017 01/27/2017 Inactive levothyroxine 112 mcg tablet RxNorm: 517936 TAKE ONE TABLET BY MOUTH DAILY 01/17/2017 08/03/2017 Inactive Zocor 20 mg tablet RxNorm: 105698 TAKE ONE TABLET BY MOUTH DAILY 11/08/2016 05/06/2017 Inactive indapamide 1.25 mg tablet RxNorm: 474123 TAKE ONE TABLET BY MOUTH DAILY 11/08/2016 05/06/2017 Inactive enalapril maleate 5 mg tablet RxNorm: 791632 TAKE ONE TABLET BY MOUTH DAILY 09/01/2016 05/28/2017 Inactive indapamide 1.25 mg tablet RxNorm: 590826 TAKE ONE TABLET BY MOUTH DAILY 08/02/2016 10/30/2016 Inactive Vitamin D2 50,000 unit capsule RxNorm: 715667 1 Capsule(s) PO QW 07/15/2016 01/17/2018 Inactive indapamide 1.25 mg tablet RxNorm: 276336 TAKE ONE TABLET BY MOUTH DAILY 04/29/2016 07/27/2016 Inactive Vitamin D2 50,000 unit capsule RxNorm: 131691 1 Capsule(s) PO QW 03/16/2016 07/14/2016 Inactive Zocor 20 mg tablet RxNorm: 683373 1 Tablet(s) PO daily 03/16/2016 10/11/2016 Inactive levothyroxine 112 mcg tablet RxNorm: 964588 TAKE ONE TABLET BY MOUTH DAILY 01/07/2016 12/31/2016 Inactive indapamide 1.25 mg tablet RxNorm: 980702 1 Tablet(s) PO daily 12/03/2015 03/31/2016 Inactive Vitamin D2 50,000 unit capsule RxNorm: 411927 1 Capsule(s) PO QW 09/26/2015 09/25/2015 Inactive Lipitor 10 mg tablet RxNorm: 145081 1 Tablet(s) PO daily 09/26/2015 03/15/2016 Inactive Vitamin D2 50,000 unit capsule RxNorm: 537101 1 Capsule(s) PO QW 09/26/2015 03/15/2016 Inactive enalapril maleate 5 mg tablet RxNorm: 109738 1 Tablet(s) PO daily 08/06/2015 07/30/2016 Inactive levothyroxine 112 mcg tablet RxNorm: 856329 1 Tablet(s) PO daily 04/04/2015 10/30/2015 Inactive Vitamin D3 2,000 unit capsule RxNorm: 600030 1 Capsule(s) PO daily No Start Date Active aspirin 500 mg tablet RxNorm: 559653 1 Tablet(s) PO daily No Start Date Active Co Q-10 oral RxNorm: 99785 oral No Start Date Active Phenergan-Codeine 6.25 mg-10 mg/5 mL syrup RxNorm: 974211 5-10 Milliliter(s) PO Q6 as needed cough No Start Date 11/08/2017 Inactive Lipitor 20 mg tablet RxNorm: 266807 1 Tablet(s) PO daily No Start Date 09/14/2015 Inactive indapamide 1.25 mg tablet RxNorm: 696038 1 Tablet(s) PO daily No Start Date 12/02/2015 Inactive enalapril maleate 5 mg tablet RxNorm: 713018 1 Tablet(s) PO daily No Start Date 08/05/2015 Inactive levothyroxine 112 mcg tablet RxNorm: 511468 1 Tablet(s) PO daily No Start Date 04/03/2015 Inactive Medication Administered Medication Codes Instructions Start Date Status Kenalog 40 mg/mL suspension for injection RxNorm: 1698148 1Milliliter 01/27/2017 No longer Active Immunizations Vaccine Codes Date Status Influenza CVX: 141 07/27/2018 completed Influenza CVX: 141 08/04/2017 completed Influenza CVX: 141 07/15/2016 completed Pneumococcal CVX: 133 07/25/2015 completed Zoster CVX: 121 07/25/2015 completed Assessments Condition Codes Effective Dates Lumbago with sciatica, right side ICD-10: M54.41 ICD-9: 724.3 10/26/2018 Mixed hyperlipidemia ICD-10: E78.2 ICD-9: 272.2 10/26/2018 Hypothyroidism, unspecified ICD-10: E03.9 ICD-9: 244.9 10/26/2018 Essential (primary) hypertension ICD-10: I10 ICD-9: 401.1 10/26/2018 Type 2 diabetes mellitus with diabetic polyneuropathy ICD-10: E11.42 ICD-9: 250.60 10/26/2018 Encounter for screening mammogram for malignant [...] (3rd IS) 2.55 uIU/mL 10/27/2018 Free T4 Ozr872 FREE T4 1.07 ng/dL 10/27/2018 Comp Metabolic Sdr757 NA 138 mEq/L 10/26/2018 Comp Metabolic Cir406 K 4.3 mEq/L 10/26/2018 Comp Metabolic Fbo707 CL 102 mEq/L 10/26/2018 Comp Metabolic Lxy552 CO2 26.0 mEq/L 10/26/2018 Comp Metabolic Nuk953 ANION GAP 14 10/26/2018 Comp Metabolic Pvk018 GLUCOSE 88 mg/dL 10/26/2018 Comp Metabolic Zvx864 Creat 0.9 mg/dL 10/26/2018 Comp Metabolic Ypb924 eGFR 63 ml/min/1.73m2 10/26/2018 Comp Metabolic Fgb241 BUN 25 mg/dL 10/26/2018 Comp Metabolic Cts499 B/C Ratio 26.6 Ratio 10/26/2018 Comp Metabolic Niq678 CALCIUM 10.1 mg/dL 10/26/2018 Comp Metabolic Tun993 ALK PHOS 77 U/L 10/26/2018 Comp Metabolic Bnf133 AST(SGOT) 16 U/L 10/26/2018 Comp Metabolic Kqv714 ALT(SGPT) 16 U/L 10/26/2018 Comp Metabolic Gkq267 BILI T 0.5 mg/dL 10/26/2018 Comp Metabolic Vwg134 ALBUMIN 4.3 g/dL 10/26/2018 Comp Metabolic Dkr420 TPRO 6.8 g/dL 10/26/2018 Comp Metabolic Idu040 GLOB 2.5 g/dL 10/26/2018 Comp Metabolic Pqa116 A/G Ratio 1.7 Ratio 10/26/2018 Comp Metabolic Wro869 Osmo 279 mOsmo 10/26/2018 %Hba1C Iip947 % HbA1c 08473- 6 5.2 % 10/26/2018 %Hba1C Lbk083 Gluc Ave 103 mg/dL 10/26/2018 Lipid Ord30 CHOL 238 mg/dL 10/26/2018 Lipid Ord30 HDL 42.0 mg/dl 10/26/2018 Lipid Ord30 TRIG 270 mg/dL 10/26/2018 Lipid Ord30 LDL 142 mg/dL 10/26/2018 Lipid Ord30 C/HDL 5.7 Ratio 10/26/2018 Cbc With Differential Ord2 WBC 6.47 [...] 29.1 pg 10/26/2018 Cbc With Differential Ord2 [place]% 9.6 % 10/26/2018 Cbc With Differential Ord2 [...] 1.94 K/ul 10/26/2018 Cbc With Differential Ord2 [place] ABS# 0.6 K/ul 10/26/2018 Cbc With Differential Ord2 Eos ABS# 0.1 K/ul 10/26/2018 Cbc With Differential Ord2 Baso ABS# 0.0 K/ul 10/26/2018 %Hba1C Kna903 % HbA1c 62114- 6 5.3 % 07/20/2018 %Hba1C Qof178 Gluc Ave 105 mg/dL 07/20/2018 Lipid Ord30 CHOL 242 mg/dL 07/20/2018 Lipid Ord30 HDL 43.0 mg/dl 07/20/2018 Lipid Ord30 TRIG 314 mg/dL 07/20/2018 Lipid Ord30 LDL 136 mg/dL 07/20/2018 Lipid Ord30 C/HDL 5.6 Ratio 07/20/2018 Tsh Ord6 TSH (3rd IS) 2.05 uIU/mL 07/20/2018 Free T4 Lox418 FREE T4 1.00 ng/dL 07/20/2018 Comp Metabolic Nhg299 NA 139 mEq/L 07/20/2018 Comp Metabolic Jod969 K 5.1 mEq/L 07/20/2018 Comp Metabolic Rgx303 CL 106 mEq/L 07/20/2018 Comp Metabolic Xec853 CO2 19.0 mEq/L 07/20/2018 Comp Metabolic Ufz613 ANION GAP 19 07/20/2018 Comp Metabolic Zvq063 GLUCOSE 88 mg/dL 07/20/2018 Comp Metabolic Jna188 Creat 0.8 mg/dL 07/20/2018 Comp Metabolic Jin953 eGFR 77 ml/min/1.73m2 07/20/2018 Comp Metabolic Mny290 BUN 25 mg/dL 07/20/2018 Comp Metabolic Xhu799 B/C Ratio 31.6 Ratio 07/20/2018 Comp Metabolic Gmf515 CALCIUM 10.0 mg/dL 07/20/2018 Comp Metabolic Eeq658 ALK PHOS 81 U/L 07/20/2018 Comp Metabolic Cwv572 AST(SGOT) 26 U/L 07/20/2018 Comp Metabolic Hsv074 ALT(SGPT) 16 U/L 07/20/2018 Comp Metabolic Nex601 BILI T 0.5 mg/dL 07/20/2018 Comp Metabolic Kfu215 ALBUMIN 4.5 g/dL 07/20/2018 Comp Metabolic Tko799 TPRO 7.2 g/dL 07/20/2018 Comp Metabolic Ejg132 GLOB 2.7 g/dL 07/20/2018 Comp Metabolic Djx288 A/G Ratio 1.6 Ratio 07/20/2018 Comp Metabolic Avb340 Osmo 281 mOsmo 07/20/2018 Vitamin D 25 Oh Oti3016 VITAMIN D, 25 HYDROXY 57.07 ng/mL 07/20/2018 Free T4 Sew814 FREE T4 1.24 ng/dL 04/14/2018 Tsh Ord6 TSH (3rd IS) 0.65 uIU/mL 04/14/2018 Cbc With Differential Ord2 WBC 8.14 K/ul [...] 29.7 pg 01/12/2018 Cbc With Differential Ord2 [place]% 10.3 % 01/12/2018 Cbc With Differential Ord2 [...] 2.40 K/ul 01/12/2018 Cbc With Differential Ord2 [place] ABS# 0.8 K/ul 01/12/2018 Cbc With Differential Ord2 Eos ABS# 0.2 K/ul 01/12/2018 Cbc With Differential Ord2 Baso ABS# 0.0 K/ul 01/12/2018 Comp Metabolic Neo104 NA 138 mEq/L 01/12/2018 Comp Metabolic Fii480 K 4.1 mEq/L 01/12/2018 Comp Metabolic Ope586 CL 100 mEq/L 01/12/2018 Comp Metabolic Bjh988 CO2 28.0 mEq/L 01/12/2018 Comp Metabolic Fry128 ANION GAP 14 01/12/2018 Comp Metabolic Kov589 GLUCOSE 84 mg/dL 01/12/2018 Comp Metabolic Ijk055 Creat 0.8 mg/dL 01/12/2018 Comp Metabolic Bpt354 eGFR 78 ml/min/1.73m2 01/12/2018 Comp Metabolic Dqv370 BUN 20 mg/dL 01/12/2018 Comp Metabolic Fjz639 B/C Ratio 25.6 Ratio 01/12/2018 Comp Metabolic Omy133 CALCIUM 9.6 mg/dL 01/12/2018 Comp Metabolic Utn926 ALK PHOS 76 U/L 01/12/2018 Comp Metabolic Nme588 AST(SGOT) 16 U/L 01/12/2018 Comp Metabolic Ogh322 ALT(SGPT) 16 U/L 01/12/2018 Comp Metabolic Kwt271 BILI T 0.4 mg/dL 01/12/2018 Comp Metabolic Vuo801 ALBUMIN 4.1 g/dL 01/12/2018 Comp Metabolic Zwk148 TPRO 6.7 g/dL 01/12/2018 Comp Metabolic Uvr645 GLOB 2.6 g/dL 01/12/2018 Comp Metabolic Xdu599 A/G Ratio 1.6 Ratio 01/12/2018 Comp Metabolic Hpl674 Osmo 277 mOsmo 01/12/2018 Tsh Ord6 TSH (3rd IS) 6.56 uIU/mL 01/12/2018 Lipid Ord30 CHOL 312 mg/dL 01/12/2018 Lipid Ord30 HDL 48.0 mg/dl 01/12/2018 Lipid Ord30 TRIG 371 mg/dL 01/12/2018 Lipid Ord30 LDL Unable to calculate Due to elevated triglycerides mg/dL 01/12/2018 Lipid Ord30 C/HDL 6.5 Ratio 01/12/2018 Free T4 Ifh108 FREE T4 0.97 ng/dL 01/12/2018 %Hba1C Ucw287 % HbA1c 08394- 6 5.1 % 01/12/2018 %Hba1C Clh256 Gluc Ave 100 mg/dL 01/12/2018 Free T4 Aux684 FREE T4 1.40 ng/dL 08/05/2017 %Hba1C Eiq621 % HbA1c 48044- 6 5.0 % 08/05/2017 %Hba1C Ajo066 Gluc Ave 97 mg/dL 08/05/2017 Tsh Ord6 hTSH II 0.09 uIU/mL 08/03/2017 Vitamin D 25 Oh Rpq2738 VITAMIN D, 25 HYDROXY 52.73 ng/mL 08/03/2017 Lipid Ord30 CHOL 215 mg/dL 08/03/2017 Lipid Ord30 HDL 43.0 mg/dl 08/03/2017 Lipid Ord30 TRIG 278 mg/dL 08/03/2017 Lipid Ord30 LDL 116 mg/dL 08/03/2017 Lipid Ord30 C/HDL 5.0 Ratio 08/03/2017 Comp Metabolic Unk735 NA 137 mEq/L 08/03/2017 Comp Metabolic Emv673 K 4.3 mEq/L 08/03/2017 Comp Metabolic Mtd658 CL 102 mEq/L 08/03/2017 Comp Metabolic Dba373 CO2 24.0 mEq/L 08/03/2017 Comp Metabolic Rth355 ANION GAP 15 08/03/2017 Comp Metabolic Kgw579 GLUCOSE 80 mg/dL 08/03/2017 Comp Metabolic Mey185 Creat 0.9 mg/dL 08/03/2017 Comp Metabolic Vgi571 eGFR 68 ml/min/1.73m2 08/03/2017 Comp Metabolic Rdq229 BUN 18 mg/dL 08/03/2017 Comp Metabolic Nfv235 B/C Ratio 20.5 Ratio 08/03/2017 Comp Metabolic Inb037 CALCIUM 9.7 mg/dL 08/03/2017 Comp Metabolic Jry994 ALK PHOS 68 U/L 08/03/2017 Comp Metabolic Rxg463 AST(SGOT) 14 U/L 08/03/2017 Comp Metabolic Die348 ALT(SGPT) 14 U/L 08/03/2017 Comp Metabolic Veh075 BILI T 0.6 mg/dL 08/03/2017 Comp Metabolic Lrt477 ALBUMIN 4.0 g/dL 08/03/2017 Comp Metabolic Zlo902 TPRO 6.4 g/dL 08/03/2017 Comp Metabolic Ehn599 GLOB 2.4 g/dL 08/03/2017 Comp Metabolic Czx571 A/G Ratio 1.7 Ratio 08/03/2017 Comp Metabolic Jlq280 Osmo 275 mOsmo 08/03/2017 Cbc With Differential Ord2 WBC 7.11 K/ul 08/03/2017 Cbc With Differential Ord2 RBC 4.61 M/ul 08/03/2017 Cbc With Differential Ord2 HGB 13.6 g/dl 08/03/2017 Cbc With Differential Ord2 HCT 40.4 % 08/03/2017 Cbc With Differential Ord2 Neut% 59.2 % 08/03/2017 Cbc With Differential Ord2 MCV 87.6 fl 08/03/2017 Cbc With Differential Ord2 Lymph% 29.5 % 08/03/2017 Cbc With Differential Ord2 [place]% 9.3 % 08/03/2017 Cbc With Differential Ord2 MCH 29.5 pg 08/03/2017 Cbc With Differential Ord2 MCHC 33.7 pg 08/03/2017 Cbc With Differential Ord2 Eos% 1.7 % 08/03/2017 Cbc With Differential Ord2 PLT 237 K/ul 08/03/2017 Cbc With Differential Ord2 Baso% 0.3 % 08/03/2017 Cbc With Differential Ord2 Neut ABS# 4.21 K/ul 08/03/2017 Cbc With Differential Ord2 RDW 14.1 % 08/03/2017 Cbc With Differential Ord2 Lymph ABS# 2.10 K/ul 08/03/2017 Cbc With Differential Ord2 [place] ABS# 0.7 K/ul 08/03/2017 Cbc With Differential Ord2 Eos ABS# 0.1 K/ul 08/03/2017 Cbc With Differential Ord2 Baso ABS# 0.0 K/ul 08/03/2017 %Hba1C Ija470 % HbA1c 07175- 6 5.1 % 01/06/2017 %Hba1C Wel085 Gluc Ave 100 mg/dL 01/06/2017 Lipid Ord30 CHOL 223 mg/dL 01/06/2017 Lipid Ord30 HDL 44.0 mg/dl 01/06/2017 Lipid Ord30 TRIG 292 mg/dL 01/06/2017 Lipid Ord30 LDL 121 mg/dL 01/06/2017 Lipid Ord30 C/HDL 5.1 Ratio 01/06/2017 Tsh Ord6 hTSH II 0.99 uIU/mL 01/06/2017 Free T4 Rfd168 FREE T4 0.96 ng/dL 01/06/2017 Cbc With [...] 29.6 pg 01/06/2017 Cbc With Differential Ord2 [place]% 9.2 % 01/06/2017 Cbc With Differential Ord2 Eos% 2.2 % 01/06/2017 Cbc With Differential Ord2 MCHC 33.3 pg 01/06/2017 Cbc With Differential Ord2 Baso% 0.5 % 01/06/2017 Cbc With Differential Ord2 PLT 215 K/ul 01/06/2017 Cbc With Differential Ord2 RDW 14.6 % 01/06/2017 Cbc With Differential Ord2 Neut ABS# 3.72 K/ul 01/06/2017 Cbc With Differential Ord2 Lymph ABS# 1.85 K/ul 01/06/2017 Cbc With Differential Ord2 [place] ABS# 0.6 K/ul 01/06/2017 Cbc With Differential Ord2 Eos ABS# 0.1 K/ul 01/06/2017 Cbc With Differential Ord2 Baso ABS# 0.0 K/ul 01/06/2017 Vitamin D 25 Oh Nld9022 VITAMIN D, 25 HYDROXY 35.10 ng/mL 01/06/2017 Comp Metabolic Ajz396 NA 140 mEq/L 01/06/2017 Comp Metabolic Qgn348 K 4.3 mEq/L 01/06/2017 Comp Metabolic Xps103 CL 103 mEq/L 01/06/2017 Comp Metabolic Dsw784 CO2 29.0 mEq/L 01/06/2017 Comp Metabolic Rav826 ANION GAP 12 01/06/2017 Comp Metabolic Von645 GLUCOSE 86 mg/dL 01/06/2017 Comp Metabolic Ugc238 Creat 0.8 mg/dL 01/06/2017 Comp Metabolic Smc134 eGFR 82 ml/min/1.73m2 01/06/2017 Comp Metabolic Mfx518 BUN 19 mg/dL 01/06/2017 Comp Metabolic Lbq337 B/C Ratio 25.3 Ratio 01/06/2017 Comp Metabolic Hah324 CALCIUM 9.6 mg/dL 01/06/2017 Comp Metabolic Eoq023 ALK PHOS 77 U/L 01/06/2017 Comp Metabolic Fkp249 AST(SGOT) 16 U/L 01/06/2017 Comp Metabolic Mvr123 ALT(SGPT) 18 U/L 01/06/2017 Comp Metabolic Rju353 BILI T 0.4 mg/dL 01/06/2017 Comp Metabolic Wrt491 ALBUMIN 4.1 g/dL 01/06/2017 Comp Metabolic Bwf949 TPRO 6.7 g/dL 01/06/2017 Comp Metabolic Cfs112 GLOB 2.6 g/dL 01/06/2017 Comp Metabolic Mna245 A/G Ratio 1.6 Ratio 01/06/2017 Comp Metabolic Ofx216 Osmo 281 mOsmo 01/06/2017 Vitamin D 25 Oh Qeo4448 VITAMIN D, 25 HYDROXY 42.77 ng/mL 07/09/2016 %Hba1C Stg604 % HbA1c 37822- 6 5.4 % 07/08/2016 %Hba1C Ytk546 Gluc Ave 108 mg/dL 07/08/2016 Free T4 Zxp509 FREE T4 1.23 ng/dL 07/08/2016 Comp Metabolic Bsf738 NA 136 mEq/L 07/08/2016 Comp Metabolic Wgb887 K 4.1 mEq/L 07/08/2016 Comp Metabolic Zow101 CL 103 mEq/L 07/08/2016 Comp Metabolic Igm385 CO2 26.0 mEq/L 07/08/2016 Comp Metabolic Hcy996 ANION GAP 11 07/08/2016 Comp Metabolic Lrf349 GLUCOSE 83 mg/dL 07/08/2016 Comp Metabolic Nmd545 Creat 0.8 mg/dL 07/08/2016 Comp Metabolic Bjb370 eGFR 80 ml/min/1.73m2 07/08/2016 Comp Metabolic Dad778 BUN 22 mg/dL 07/08/2016 Comp Metabolic Fbw872 B/C Ratio 28.9 Ratio 07/08/2016 Comp Metabolic Jfw998 CALCIUM 9.8 mg/dL 07/08/2016 Comp Metabolic Bge192 ALK PHOS 75 U/L 07/08/2016 Comp Metabolic Oio658 AST(SGOT) 14 U/L 07/08/2016 Comp Metabolic Iow282 ALT(SGPT) 15 U/L 07/08/2016 Comp Metabolic Mlg832 BILI T 0.4 mg/dL 07/08/2016 Comp Metabolic Ddd461 ALBUMIN 4.1 g/dL 07/08/2016 Comp Metabolic Mkc056 TPRO 6.6 g/dL 07/08/2016 Comp Metabolic Jwc411 GLOB 2.5 g/dL 07/08/2016 Comp Metabolic Xkl857 A/G Ratio 1.7 Ratio 07/08/2016 Comp Metabolic Nxx090 Osmo 274 mOsmo 07/08/2016 Cbc With Differential Ord2 WBC 6.90 [...] 29.8 pg 07/08/2016 Cbc With Differential Ord2 [place]% 10.1 % 07/08/2016 Cbc With Differential Ord2 [...] 1.89 K/ul 07/08/2016 Cbc With Differential Ord2 [place] ABS# 0.7 K/ul 07/08/2016 Cbc With Differential Ord2 Eos ABS# 0.2 K/ul 07/08/2016 Cbc With Differential Ord2 Baso ABS# 0.0 K/ul 07/08/2016 Tsh Ord6 hTSH II 0.21 uIU/mL 07/08/2016 Lipid Ord30 CHOL 210 mg/dL 07/08/2016 Lipid Ord30 HDL 41.0 mg/dl 07/08/2016 Lipid Ord30 TRIG 257 mg/dL 07/08/2016 Lipid Ord30 LDL 118 mg/dL 07/08/2016 Lipid Ord30 C/HDL 5.1 Ratio 07/08/2016 Vitamin D 25 Oh Ptx8510 VITAMIN D, 25 HYDROXY 34.38 ng/mL 03/10/2016 Comp Metabolic Xse925 NA 137 mEq/L 03/09/2016 Comp Metabolic Qaf069 K 4.5 mEq/L 03/09/2016 Comp Metabolic Kjr059 CL 104 mEq/L 03/09/2016 Comp Metabolic Ede582 CO2 27.0 mEq/L 03/09/2016 Comp Metabolic Zak391 ANION GAP 11 03/09/2016 Comp Metabolic Kaq627 GLUCOSE 86 mg/dL 03/09/2016 Comp Metabolic Ivf952 Creat 0.8 mg/dL 03/09/2016 Comp Metabolic Ahb309 eGFR 81 ml/min/1.73m2 03/09/2016 Comp Metabolic Yok722 BUN 23 mg/dL 03/09/2016 Comp Metabolic Afj636 B/C Ratio 30.3 Ratio 03/09/2016 Comp Metabolic Hck035 CALCIUM 9.4 mg/dL 03/09/2016 Comp Metabolic Izc787 ALK PHOS 69 U/L 03/09/2016 Comp Metabolic Tah851 AST(SGOT) 14 U/L 03/09/2016 Comp Metabolic Lcy145 ALT(SGPT) 14 U/L 03/09/2016 Comp Metabolic Xur091 BILI T 0.4 mg/dL 03/09/2016 Comp Metabolic Wom879 ALBUMIN 4.1 g/dL 03/09/2016 Comp Metabolic Wuf292 TPRO 6.6 g/dL 03/09/2016 Comp Metabolic Hbp801 GLOB 2.5 g/dL 03/09/2016 Comp Metabolic Scz944 A/G Ratio 1.6 Ratio 03/09/2016 Comp Metabolic Pnp630 Osmo 277 mOsmo 03/09/2016 Tsh Ord6 hTSH [...] 26.3 % 03/09/2016 Cbc With Differential Ord2 [place]% 11.1 % 03/09/2016 Cbc With Differential Ord2 MCH 28.9 pg 03/09/2016 Cbc With Differential Ord2 MCHC 33.7 pg 03/09/2016 Cbc With Differential Ord2 Eos% 1.7 % 03/09/2016 Cbc With Differential Ord2 PLT 204 K/ul 03/09/2016 Cbc With Differential Ord2 Baso% 0.2 % 03/09/2016 Cbc With Differential Ord2 Neut ABS# 4.99 K/ul 03/09/2016 Cbc With Differential Ord2 RDW 14.5 % 03/09/2016 Cbc With Differential Ord2 Lymph ABS# 2.16 K/ul 03/09/2016 Cbc With Differential Ord2 [place] ABS# 0.9 K/ul 03/09/2016 Cbc With Differential Ord2 Eos ABS# 0.1 K/ul 03/09/2016 Cbc With Differential Ord2 Baso ABS# 0.0 K/ul 03/09/2016 %Hba1C Hkd288 % HbA1c 44260- 6 5.3 % 03/09/2016 %Hba1C Jvd984 Gluc Ave 105 mg/dL 03/09/2016 Comp Metabolic Gfm787 NA 137 mEq/L 09/15/2015 Comp Metabolic Pgr372 K 4.4 mEq/L 09/15/2015 Comp Metabolic Iqi913 CL 101 mEq/L 09/15/2015 Comp Metabolic Edd607 CO2 28.0 mEq/L 09/15/2015 Comp Metabolic Dit173 ANION GAP 12 09/15/2015 Comp Metabolic Iux898 GLUCOSE 89 mg/dL 09/15/2015 Comp Metabolic Nxz011 Creat 0.8 mg/dL 09/15/2015 Comp Metabolic Yrl076 eGFR 73 ml/min/1.73m2 09/15/2015 Comp Metabolic Viv863 BUN 20 mg/dL 09/15/2015 Comp Metabolic Bzh295 B/C Ratio 24.1 Ratio 09/15/2015 Comp Metabolic Pdr117 CALCIUM 10.1 mg/dL 09/15/2015 Comp Metabolic Mib491 ALK PHOS 72 U/L 09/15/2015 Comp Metabolic Ial306 AST(SGOT) 16 U/L 09/15/2015 Comp Metabolic Eza901 ALT(SGPT) 15 U/L 09/15/2015 Comp Metabolic Jrh897 BILI T 0.5 mg/dL 09/15/2015 Comp Metabolic Hbz176 ALBUMIN 4.4 g/dL 09/15/2015 Comp Metabolic Sjp858 TPRO 7.0 g/dL 09/15/2015 Comp Metabolic Naq594 GLOB 2.6 g/dL 09/15/2015 Comp Metabolic Irn960 A/G Ratio 1.7 Ratio 09/15/2015 Comp Metabolic Eko900 Osmo 276 mOsmo 09/15/2015 %Hba1C Rde225 % HbA1c 04208- 6 5.2 % 09/15/2015 %Hba1C Niy561 Gluc Ave 103 mg/dL 09/15/2015 Lipid Ord30 CHOL 294 mg/dL 09/15/2015 Lipid Ord30 HDL 42.0 mg/dl 09/15/2015 Lipid Ord30 TRIG 296 mg/dL 09/15/2015 Lipid Ord30 LDL 193 mg/dL 09/15/2015 Lipid Ord30 C/HDL 7.0 Ratio 09/15/2015 Cbc With Differential Ord2 WBC 6.2 [...] With Differential Ord2 RDW 15.0 % 09/15/2015 Vitamin D 25 Oh [id number] VITAMIN D, 25 HYDROXY 30.19 ng/mL 09/15/2015 Tsh Ord6 hTSH II 2.99 uIU/mL 09/15/2015 Review of Systems System Result Effective [...] Formatting Model/CDA Sections, Assigned to/Margarita Brock CPT-4: [id number] 07/27/2018 FLU VAC NO PRSV 4 SHANNON 3 YRS+ CPT-4: 20060 08/04/2017 ADMIN INFLUENZA VIRUS VAC CPT-4: G0008 08/04/2017 TRIAMCINOLONE ACET INJ NOS CPT-4: J3301 01/27/2017 THER/PROPH/DIAG INJ SC/IM CPT-4: 98116 01/27/2017 ADMIN INFLUENZA VIRUS VAC CPT-4: G0008 07/15/2016 FLU VACC 4 SHANNON 3 YRS PLUS IM SNOMED CT: [id number] CPT-4: 39018 07/15/2016 Vital Signs Date Vital 10/26/2018 Blood Pressure 1: 132/76 Code: 8480-6 BMI: 34.5 Code: 65384-6 Heart Rate 1: 55 bpm Height: 5'4" SpO2: 99% Weight: 204 lbs 07/20/2018 Blood Pressure 1: 116/74 Code: 8480-6 BMI: 34.5 Code: 51778-0 Heart Rate 1: 52 bpm Height: 5'4" SpO2: 99% Weight: 204 lbs 04/14/2018 Blood Pressure 1: 128/76 Code: 8480-6 BMI: 34.5 Code: 52257-1 Heart Rate 1: 67 bpm Height: 5'4" SpO2: 95% Weight: 204 lbs 02/06/2018 Blood Pressure 1: 142/78 Code: 8480-6 BMI: 35.2 Code: 78372-3 Heart Rate 1: 58 bpm Height: 5'4" SpO2: 98% Weight: 208 lbs 01/12/2018 Blood Pressure 1: 132/82 Code: 8480-6 BMI: 34.8 Code: 04410-5 Height: 5'4" Weight: 206 lbs 08/04/2017 Blood Pressure 1: 140/82 Code: 8480-6 BMI: 31.9 Code: 91885-2 Heart Rate 1: 58 bpm Height: 5'4" SpO2: 99% Weight: 188 lbs 8 oz 07/19/2017 Blood Pressure 1: 136/76 Code: 8480-6 BMI: 32.0 Code: 28043-3 Heart Rate 1: 67 bpm Height: 5'4" SpO2: 97% Weight: 189 lbs 8 oz 05/05/2017 Blood Pressure 1: 142/80 Code: 8480-6 BMI: 32.4 Code: 81063-8 Heart Rate 1: 54 bpm Height: 5'4" SpO2: 98% Weight: 191 lbs 8 oz 01/27/2017 Blood Pressure 1: 132/82 Code: 8480-6 BMI: 34.1 Code: 45436-9 Heart Rate 1: 55 bpm Height: 5'4" SpO2: 99% Weight: 202 lbs 07/15/2016 Blood Pressure 1: 128/72 Code: 8480-6 BMI: 34.4 Code: 17938-3 Heart Rate 1: 50 bpm Height: 5'4" SpO2: 98% Weight: 203 lbs 8 oz 03/16/2016 Blood Pressure 1: 118/78 Code: 8480-6 BMI: 34.5 Code: 01851-6 Heart Rate 1: 55 bpm Height: 5'4" SpO2: 98% Weight: 204 lbs 09/15/2015 Blood Pressure 1: 134/72 Code: 8480-6 BMI: 34.6 Code: 05733-6 Heart Rate 1: 52 bpm Height: 5'4" SpO2: 99% Weight: 205 lbs 03/17/2015 Blood Pressure 1: 128/74 Code: 8480-6 BMI: 35.8 Code: 19573-5 Heart Rate 1: 59 bpm Height: 5'4" [...] data Encounters Encounter Performer Location Codes Date ([id number]) 03916 EST. PATIENT, LEVEL IV Diagnosis: Essential (primary) hypertension[ICD10: I10] Diagnosis: Type 2 diabetes mellitus with diabetic polyneuropathy[ICD10: E11.42] Diagnosis: Hypothyroidism, unspecified[ICD10: E03.9] Diagnosis: Mixed hyperlipidemia[ICD10: E78.2] Diagnosis: Lumbago with sciatica, right side[ICD10: M54.41] Delmis Bermudez MD, [facility] CPT-4: 48398 10/26/2018 ([id number]) 61745 EST. PATIENT, LEVEL IV Diagnosis: Type 2 diabetes mellitus with diabetic polyneuropathy[ICD10: E11.42] Diagnosis: Mixed hyperlipidemia[ICD10: E78.2] Diagnosis: Essential (primary) hypertension[ICD10: I10] Diagnosis: Vitamin D deficiency, unspecified[ICD10: E55.9] Diagnosis: Hypothyroidism, unspecified[ICD10: E03.9] Delmis Bermudez MD, [facility] CPT-4: 65828 07/20/2018 ([id number]) 21914 EST. PATIENT, LEVEL IV Diagnosis: Essential (primary) hypertension[ICD10: I10] Diagnosis: Hypothyroidism, unspecified[ICD10: E03.9] Diagnosis: Mixed hyperlipidemia[ICD10: E78.2] Delmis Bermudez MD, [facility] CPT- 4: 34599 04/14/2018 ([id number]) 66520 EST. PATIENT, LEVEL III Diagnosis: Type 2 diabetes mellitus with diabetic polyneuropathy[ICD10: E11.42] Delmis Bermudez MD, [facility] CPT-4: 37248 02/06/2018 ([id number]) 81162 EST. PATIENT, LEVEL IV Diagnosis: Mixed hyperlipidemia[ICD10: E78.2] Diagnosis: Hypothyroidism, unspecified[ICD10: E03.9] Diagnosis: Type 2 diabetes mellitus without complications[ICD10: E11.9] Delmis Bermudez MD, [facility] CPT-4: 70166 01/12/2018 ([id number]) 59973 EST. PATIENT, LEVEL IV Diagnosis: Essential (primary) hypertension[ICD10: I10] Diagnosis: Mixed hyperlipidemia[ICD10: E78.2] Diagnosis: Hypothyroidism, unspecified[ICD10: E03.9] Diagnosis: Type 2 diabetes mellitus without complications[ICD10: E11.9] Diagnosis: Encounter for immunization[ICD10: Z23] Delmis Bermudez MD, [facility] CPT-4: 53583 08/04/2017 ([id number]) 59471 EST. PATIENT, LEVEL III Diagnosis: Diverticulitis of large intestine without perforation or abscess without bleeding[ICD10: K57.32] Delmis Bermudez MD [facility] CPT-4: 97956 07/19/2017 ([id number]) 54116 EST. PATIENT, LEVEL III Diagnosis: Type 2 diabetes mellitus with diabetic polyneuropathy[ICD10: E11.42] Delmis Bermudez MD [facility] CPT-4: 65426 05/05/2017 ([id number]) 42128 EST. PATIENT, LEVEL IV Diagnosis: Essential (primary) hypertension[ICD10: I10] Diagnosis: Type 2 diabetes mellitus without complications[ICD10: E11.9] Diagnosis: Mixed hyperlipidemia[ICD10: E78.2] Diagnosis: Allergic rhinitis due to pollen[ICD10: J30.1] Ria Bermudez MD [facility] CPT-4: 50390 01/27/2017 ([id number]) 56602 EST. PATIENT, LEVEL IV Diagnosis: Type 2 diabetes mellitus without complications[ICD10: E11.9] Diagnosis: Essential (primary) hypertension[ICD10: I10] Diagnosis: Mixed hyperlipidemia[ICD10: E78.2] Ria Bermudez MD [facility] CPT- 4: 56037 07/15/2016 ([id number]) 94789 EST. PATIENT, LEVEL IV Diagnosis: Type 2 diabetes mellitus without complications[ICD10: E11.9] Diagnosis: Polyneuropathy, unspecified[ICD10: G62.9] Diagnosis: Mixed hyperlipidemia[ICD10: E78.2] Ria Bermudez MD [facility] CPT- 4: 43560 03/16/2016 ([id number]) 56941 EST. PATIENT, LEVEL IV Diagnosis: Type 2 diabetes mellitus without complications[ICD10: E11.9] Diagnosis: Essential (primary) hypertension[ICD10: I10] Diagnosis: Vitamin D deficiency, unspecified[ICD10: E55.9] Diagnosis: Mixed hyperlipidemia[ICD10: E78.2] Ria Bermudez MD [facility] CPT- 4: 22319 09/15/2015 ([id number]) OFFICE VISIT, NEW - LEVEL 4 Diagnosis: ESSENTIAL HYPERTENSION[ICD9: 401.9] Diagnosis: Diabetes mellitus type 2, controlled[ICD9: 250.00] Diagnosis: Peripheral neuropathy[ICD9: 356.9] Delmis Bermudez MD, [facility] CPT- 4: 45541 03/17/2015 Plan of Care Planned Activity Notes [...] they worsen. 10/26/2018 Appointment: [facility]el[phone] ([facility] min) Moderate 10/26/2018 Patient Education: Patient [...] of control. 07/20/2018 Appointment: Delmis Her WPtel: [address] [place], [place] [phone] (15 min) Moderate 07/20/2018 Patient Education: Patient [...] start it 04/14/2018 Appointment: Delmis Her WPtel: [phone] [phone] (15 min) Moderate 04/14/2018 Patient Education: Patient Medication Summary Completed 04/14/2018 Visit Plan: Diabetic peripheral neuropathy -paperwork for diabetic shoes completed today in the office and will fax to Dr Briscoe's office- Patient verbalized understanding of plan. 02/06/2018 Appointment: [phone] (15 min) Moderate 02/06/2018 Patient Education: Patient [...] of control. 01/12/2018 Appointment: [phone] (30 min) Complex 01/12/2018 Patient Education: Patient [...] to medications. 08/04/2017 Appointment: Delmis Her WPtel: [phone] (30 min) Complex 08/04/2017 Patient Education: Patient Medication Summary Completed 08/04/2017 Patient Education: Obesity Completed 08/04/2017 Care Plan: [facility] Pending 08/04/2017 Visit Plan: Diverticulitis - rx for antibiotic sent to pt's pharmacy - pt advised to avoid seeds, nuts, popcorn, or any other food which has been proven to upset the pt's stomach. Call if symptoms do not improve or if any worse and we will check labs and CT scan. Patient verbalized understanding of plan. 07/19/2017 Appointment: Delmis Her WPtel: [phone] (30 min) Complex 07/19/2017 Patient Education: Patient Medication Summary Completed 07/19/2017 Patient Education: Obesity Completed 07/19/2017 Visit Plan: Diabetic peripheral neuropathy - diabetes paperwork completed today in the office-patient does want to start medication-RX for gabapentin sent electronically and provided and instructed on use. Patient verbalized understanding of plan. 05/05/2017 Appointment: Delmis Her WPtel: [phone] (30 min) Complex 05/05/2017 Patient Education: Patient Medication Summary Completed 05/05/2017 Patient Education: Obesity Completed 05/05/2017 Appointment: Delmis Her WPtel: [phone] [phone] [place] [address] - Annual Wellness Visit 01/28/2017 Visit Plan: [...] of kenalog 01/27/2017 Appointment: Ria Bermudez WPtel: [facility]5 [phone] (15 min) Moderate 01/27/2017 Patient Education: Patient Medication Summary Completed 01/27/2017 Patient Education: Obesity Completed 01/27/2017 Appointment: Ria Bermudez WPtel: [facility]5 [phone] (15 min) Moderate 01/11/2017 Visit Plan: [...] dications. 07/15/2016 Appointment: Ria Bermudez WPtel: [phone] [phone] (15 min) Moderate 07/15/2016 Patient Education: [...] this time. 03/16/2016 Appointment: [facility]ermude[facility]el[phone] [place] (15 min) Moderate 03/16/2016 Patient Education: [...] are starting to become less controlled. Peripheral ajeuirbmma-ML-zswzmoml foot exam today in the office and [...] are starting to become less controlled. Peripheral tensloqoop-QJ-buoeatrc foot exam today in the office and [...] are starting to become less controlled. Peripheral sppjnochbb-HX-sfamijfw foot exam today in the office and paperwork completed for diabetic shoes-see scanned document 03/17/2015 Appointment: Ria Bermudez WPtel: [address] [place], [place] [address] [place] ([place]) New Patient 03/17/2015 Patient Education: [...] are starting to become less controlled. Peripheral hplbdbcaet-TG-qlonqlix foot exam today in the office and [...] are starting to become less controlled. Peripheral zdlzxvuwdp-CH-chwhqaje foot exam today in the office and [...] are starting to become less controlled. Peripheral ngjedlxnnz-ZW-rrhqvwul foot exam today in the office and [...]
--- OUTSIDE RECORDS SUMMARY | 2019-04-04 07:20 | XMS REPORT | CCD ---
Author Author Delmis Her Organization Ria Bermudez MD, [facility] Address [address] [place] [address] Phone Care Team Providers Care Practice Physician Name Role Phone PP Unavailable CCM Unavailable Summary Purpose Interface Exchange Insurance Providers Payer name Policy type / Coverage type Covered democrat ID Effective Begin Date Effective End Date WPS Medicare Part B Medicare Part B [id number] Unknown [facility] Medicare Part B [id number] Unknown Family history Son Diagnosis Age At [...] Unknown Retired 03/17/[address]: 040715177 Never smoker 03/17/[address]: 148390894 Never smoker 03/17/2015 Allergies, Adverse Reactions, Alerts Substance Reaction Codes Entered Date Inactivated Date Status * NO KNOWN FOOD ALLERGIES Unknown 03/17/2015 No Inactive Date Active ciprofloxacin RxNorm: 26591 03/17/2015 No Inactive Date Active Erythromycin RxNorm: 4053 03/17/2015 No Inactive Date Active Penicillin Unknown 03/17/2015 No Inactive Date Active [id number] REDUCTASE INHIBITORS myalgias, Unknown 03/16/2016 No Inactive [...] Fill Instructions Zetia 10 mg tablet RxNorm: 191953 1 Tablet(s) PO daily 10/26/2018 No Stop Date Active Zetia 10 mg tablet RxNorm: 060614 1/2 Tablet(s) PO daily 07/20/2018 10/25/2018 Inactive levothyroxine 112 mcg tablet RxNorm: 462930 TAKE ONE TABLET BY MOUTH EVERY OTHER DAY ALTERNATE WITH 100MCG TABLET 07/19/2018 11/15/2018 Active indapamide 1.25 mg tablet RxNorm: 383124 Tablet(s) TAKE ONE TABLET BY MOUTH DAILY 07/19/2018 07/13/2019 Active gabapentin 100 mg capsule RxNorm: 417377 TAKE ONE CAPSULE BY MOUTH EVERY NIGHT AT BEDTIME 06/05/2018 09/02/2018 Inactive Zetia 10 mg tablet RxNorm: 491780 1 Tablet(s) PO daily 05/11/2018 07/19/2018 Inactive Zetia 10 mg tablet RxNorm: 105295 1 Tablet(s) PO daily 05/11/2018 05/10/2018 Inactive enalapril maleate 5 mg tablet RxNorm: 784709 TAKE ONE TABLET BY MOUTH DAILY 04/05/2018 12/30/2018 Active indapamide 1.25 mg tablet RxNorm: 495462 TAKE ONE TABLET BY MOUTH DAILY 04/05/2018 07/18/2018 Inactive levothyroxine 100 mcg tablet RxNorm: 954997 Tablet(s) TAKE ONE TABLET BY MOUTH EVERY OTHER DAY. ALTERNATE WITH 112 MCG TABLET. 01/24/2018 05/23/2018 Inactive levothyroxine 112 mcg tablet RxNorm: 816106 1 Tablet(s) PO every other day . ALTERNATE WITH 100 MCG TABLET. 01/24/2018 05/23/2018 Inactive Crestor 10 mg tablet RxNorm: 536219 1 Tablet(s) PO QHS 01/24/2018 04/13/2018 Inactive Crestor 10 mg tablet RxNorm: 158235 1 Tablet(s) PO QHS 01/24/2018 01/23/2018 Inactive gabapentin 100 mg capsule RxNorm: 833870 TAKE ONE CAPSULE BY MOUTH EVERY NIGHT AT BEDTIME 01/05/2018 06/04/2018 Inactive indapamide 1.25 mg tablet RxNorm: 718460 TAKE ONE TABLET BY MOUTH DAILY 01/05/2018 04/04/2018 Inactive Zocor 20 mg tablet RxNorm: 237578 TAKE ONE TABLET BY MOUTH DAILY 12/02/2017 01/11/2018 Inactive Phenergan-Codeine 6.25 mg-10 mg/5 mL syrup RxNorm: 836833 5-10 Milliliter(s) PO Q6 as needed cough 11/09/2017 No Stop Date Active Tamiflu 75 mg capsule RxNorm: 745594 1 Capsule(s) PO BID 11/09/2017 11/13/2017 Inactive Tamiflu 75 mg capsule RxNorm: 687389 1 Capsule(s) PO BID 11/09/2017 11/08/2017 Inactive levothyroxine 100 mcg tablet RxNorm: 453904 TAKE ONE TABLET BY MOUTH DAILY 10/28/2017 01/23/2018 Inactive indapamide 1.25 mg tablet RxNorm: 960203 TAKE ONE TABLET BY MOUTH DAILY 09/09/2017 01/04/2018 Inactive levothyroxine 100 mcg tablet RxNorm: 105406 1 Tablet(s) PO daily TAKE ONE TABLET BY MOUTH DAILY 08/04/2017 10/27/2017 Inactive Flagyl 500 mg tablet RxNorm: 151628 1 Tablet(s) PO TID 07/19/2017 07/28/2017 Inactive enalapril maleate 5 mg tablet RxNorm: 641866 TAKE ONE TABLET BY MOUTH DAILY 06/30/2017 12/26/2017 Inactive indapamide 1.25 mg tablet RxNorm: 370782 TAKE ONE TABLET BY MOUTH DAILY 05/26/2017 09/08/2017 Inactive Zocor 20 mg tablet RxNorm: 520211 TAKE ONE TABLET BY MOUTH DAILY 05/26/2017 10/22/2017 Inactive gabapentin 100 mg capsule RxNorm: 730968 1 Capsule(s) PO QHS 05/05/2017 09/01/2017 Inactive Kenalog 40 mg/mL suspension for injection RxNorm: 8277366 1 Milliliter(s) Inj 01/27/2017 01/27/2017 Inactive levothyroxine 112 mcg tablet RxNorm: 411269 TAKE ONE TABLET BY MOUTH DAILY 01/17/2017 08/03/2017 Inactive Zocor 20 mg tablet RxNorm: 901623 TAKE ONE TABLET BY MOUTH DAILY 11/08/2016 05/06/2017 Inactive indapamide 1.25 mg tablet RxNorm: 947836 TAKE ONE TABLET BY MOUTH DAILY 11/08/2016 05/06/2017 Inactive enalapril maleate 5 mg tablet RxNorm: 405033 TAKE ONE TABLET BY MOUTH DAILY 09/01/2016 05/28/2017 Inactive indapamide 1.25 mg tablet RxNorm: 187263 TAKE ONE TABLET BY MOUTH DAILY 08/02/2016 10/30/2016 Inactive Vitamin D2 50,000 unit capsule RxNorm: 619827 1 Capsule(s) PO QW 07/15/2016 01/17/2018 Inactive indapamide 1.25 mg tablet RxNorm: 876578 TAKE ONE TABLET BY MOUTH DAILY 04/29/2016 07/27/2016 Inactive Vitamin D2 50,000 unit capsule RxNorm: 225960 1 Capsule(s) PO QW 03/16/2016 07/14/2016 Inactive Zocor 20 mg tablet RxNorm: 058447 1 Tablet(s) PO daily 03/16/2016 10/11/2016 Inactive levothyroxine 112 mcg tablet RxNorm: 432508 TAKE ONE TABLET BY MOUTH DAILY 01/07/2016 12/31/2016 Inactive indapamide 1.25 mg tablet RxNorm: 991255 1 Tablet(s) PO daily 12/03/2015 03/31/2016 Inactive Vitamin D2 50,000 unit capsule RxNorm: 869339 1 Capsule(s) PO QW 09/26/2015 09/25/2015 Inactive Lipitor 10 mg tablet RxNorm: 580194 1 Tablet(s) PO daily 09/26/2015 03/15/2016 Inactive Vitamin D2 50,000 unit capsule RxNorm: 396940 1 Capsule(s) PO QW 09/26/2015 03/15/2016 Inactive enalapril maleate 5 mg tablet RxNorm: 983461 1 Tablet(s) PO daily 08/06/2015 07/30/2016 Inactive levothyroxine 112 mcg tablet RxNorm: 485671 1 Tablet(s) PO daily 04/04/2015 10/30/2015 Inactive Vitamin D3 2,000 unit capsule RxNorm: 048028 1 Capsule(s) PO daily No Start Date Active aspirin 500 mg tablet RxNorm: 603811 1 Tablet(s) PO daily No Start Date Active Co Q-10 oral RxNorm: 43628 oral No Start Date Active Phenergan-Codeine 6.25 mg-10 mg/5 mL syrup RxNorm: 809958 5-10 Milliliter(s) PO Q6 as needed cough No Start Date 11/08/2017 Inactive Lipitor 20 mg tablet RxNorm: 170320 1 Tablet(s) PO daily No Start Date 09/14/2015 Inactive indapamide 1.25 mg tablet RxNorm: 647691 1 Tablet(s) PO daily No Start Date 12/02/2015 Inactive enalapril maleate 5 mg tablet RxNorm: 125526 1 Tablet(s) PO daily No Start Date 08/05/2015 Inactive levothyroxine 112 mcg tablet RxNorm: 043716 1 Tablet(s) PO daily No Start Date 04/03/2015 Inactive Medication Administered Medication Codes Instructions Start Date Status Kenalog 40 mg/mL suspension for injection RxNorm: 6532675 1Milliliter 01/27/2017 No longer Active Immunizations Vaccine [...] Observation Code Item Item Code Result Date %Hba1C Tih504 % HbA1c 87717- 6 5.3 % 07/20/2018 %Hba1C Dqn550 Gluc Ave 105 mg/dL 07/20/2018 Comp Metabolic Alv635 NA 139 mEq/L 07/20/2018 Comp Metabolic Ofe130 K 5.1 mEq/L 07/20/2018 Comp Metabolic Qcq828 CL 106 mEq/L 07/20/2018 Comp Metabolic Nrc218 CO2 19.0 mEq/L 07/20/2018 Comp Metabolic Scc534 ANION GAP 19 07/20/2018 Comp Metabolic Cvn449 GLUCOSE 88 mg/dL 07/20/2018 Comp Metabolic Str038 Creat 0.8 mg/dL 07/20/2018 Comp Metabolic Dob391 eGFR 77 ml/min/1.73m2 07/20/2018 Comp Metabolic Ocq465 BUN 25 mg/dL 07/20/2018 Comp Metabolic Oku548 B/C Ratio 31.6 Ratio 07/20/2018 Comp Metabolic Zst310 CALCIUM 10.0 mg/dL 07/20/2018 Comp Metabolic Huf722 ALK PHOS 81 U/L 07/20/2018 Comp Metabolic Mge208 AST(SGOT) 26 U/L 07/20/2018 Comp Metabolic Uig409 ALT(SGPT) 16 U/L 07/20/2018 Comp Metabolic Ayj335 BILI T 0.5 mg/dL 07/20/2018 Comp Metabolic Obs783 ALBUMIN 4.5 g/dL 07/20/2018 Comp Metabolic Abp742 TPRO 7.2 g/dL 07/20/2018 Comp Metabolic Lpk898 GLOB 2.7 g/dL 07/20/2018 Comp Metabolic Ssx836 A/G Ratio 1.6 Ratio 07/20/2018 Comp Metabolic Ocd958 Osmo 281 mOsmo 07/20/2018 Free T4 Exm973 FREE T4 1.00 ng/dL 07/20/2018 Tsh Ord6 TSH (3rd IS) 2.05 uIU/mL 07/20/2018 Vitamin D 25 Oh Lns4370 VITAMIN D, 25 HYDROXY 57.07 ng/mL 07/20/2018 Lipid Ord30 CHOL 242 mg/dL 07/20/2018 Lipid Ord30 HDL 43.0 mg/dl 07/20/2018 Lipid Ord30 TRIG 314 mg/dL 07/20/2018 Lipid Ord30 LDL 136 mg/dL 07/20/2018 Lipid Ord30 C/HDL 5.6 Ratio 07/20/2018 Free T4 Pic785 FREE T4 1.24 ng/dL 04/14/2018 Tsh Ord6 TSH (3rd IS) 0.65 uIU/mL 04/14/2018 %Hba1C Klg942 % HbA1c 08433- 6 5.1 % 01/12/2018 %Hba1C Swu681 Gluc Ave 100 mg/dL 01/12/2018 Free T4 Vls714 FREE T4 0.97 ng/dL 01/12/2018 Lipid Ord30 [...] 29.5 % 01/12/2018 Cbc With Differential Ord2 [place]% 10.3 % 01/12/2018 Cbc With Differential Ord2 MCH 29.7 pg 01/12/2018 Cbc With Differential Ord2 Eos% 1.8 % 01/12/2018 Cbc With Differential Ord2 MCHC 33.3 pg 01/12/2018 Cbc With Differential Ord2 PLT 205 K/ul 01/12/2018 Cbc With Differential Ord2 Baso% 0.4 % 01/12/2018 Cbc With Differential Ord2 Neut ABS# 4.72 K/ul 01/12/2018 Cbc With Differential Ord2 RDW 14.7 % 01/12/2018 Cbc With Differential Ord2 Lymph ABS# 2.40 K/ul 01/12/2018 Cbc With Differential Ord2 [place] ABS# 0.8 K/ul 01/12/2018 Cbc With Differential Ord2 Eos ABS# 0.2 K/ul 01/12/2018 Cbc With Differential Ord2 Baso ABS# 0.0 K/ul 01/12/2018 Comp Metabolic Uoq337 NA 138 mEq/L 01/12/2018 Comp Metabolic Eey756 K 4.1 mEq/L 01/12/2018 Comp Metabolic Gxz197 CL 100 mEq/L 01/12/2018 Comp Metabolic Mdy651 CO2 28.0 mEq/L 01/12/2018 Comp Metabolic Khe177 ANION GAP 14 01/12/2018 Comp Metabolic Pus453 GLUCOSE 84 mg/dL 01/12/2018 Comp Metabolic Qml615 Creat 0.8 mg/dL 01/12/2018 Comp Metabolic Uxp398 eGFR 78 ml/min/1.73m2 01/12/2018 Comp Metabolic Nko670 BUN 20 mg/dL 01/12/2018 Comp Metabolic Cmh592 B/C Ratio 25.6 Ratio 01/12/2018 Comp Metabolic Mwr563 CALCIUM 9.6 mg/dL 01/12/2018 Comp Metabolic Jdl127 ALK PHOS 76 U/L 01/12/2018 Comp Metabolic Xnk955 AST(SGOT) 16 U/L 01/12/2018 Comp Metabolic Plh240 ALT(SGPT) 16 U/L 01/12/2018 Comp Metabolic Soo107 BILI T 0.4 mg/dL 01/12/2018 Comp Metabolic Onh217 ALBUMIN 4.1 g/dL 01/12/2018 Comp Metabolic Sva814 TPRO 6.7 g/dL 01/12/2018 Comp Metabolic Yzn169 GLOB 2.6 g/dL 01/12/2018 Comp Metabolic Exw071 A/G Ratio 1.6 Ratio 01/12/2018 Comp Metabolic Cvk509 Osmo 277 mOsmo 01/12/2018 Free T4 Oej540 FREE T4 1.40 ng/dL 08/05/2017 %Hba1C Pjh178 % HbA1c 58141- 6 5.0 % 08/05/2017 %Hba1C Yuu037 Gluc Ave 97 mg/dL 08/05/2017 Cbc With Differential Ord2 WBC 7.11 K/ul 08/03/2017 Cbc With Differential Ord2 RBC 4.61 M/ul 08/03/2017 Cbc With Differential Ord2 HGB 13.6 g/dl 08/03/2017 Cbc With Differential Ord2 Neut% 59.2 % 08/03/2017 Cbc With Differential Ord2 HCT 40.4 % 08/03/2017 Cbc With Differential Ord2 Lymph% 29.5 % 08/03/2017 Cbc With Differential Ord2 MCV 87.6 fl 08/03/2017 Cbc With Differential Ord2 MCH 29.5 pg 08/03/2017 Cbc With Differential Ord2 [place]% 9.3 % 08/03/2017 Cbc With Differential Ord2 MCHC 33.7 pg 08/03/2017 Cbc With Differential Ord2 Eos% 1.7 % 08/03/2017 Cbc With Differential Ord2 Baso% 0.3 % 08/03/2017 Cbc With Differential Ord2 PLT 237 K/ul 08/03/2017 Cbc With Differential Ord2 Neut ABS# 4.21 K/ul 08/03/2017 Cbc With Differential Ord2 RDW 14.1 % 08/03/2017 Cbc With Differential Ord2 Lymph ABS# 2.10 K/ul 08/03/2017 Cbc With Differential Ord2 [place] ABS# 0.7 K/ul 08/03/2017 Cbc With Differential Ord2 Eos ABS# 0.1 K/ul 08/03/2017 Cbc With Differential Ord2 Baso ABS# 0.0 K/ul 08/03/2017 Vitamin D 25 Oh Enb0669 VITAMIN D, 25 HYDROXY 52.73 ng/mL 08/03/2017 Lipid Ord30 CHOL 215 mg/dL 08/03/2017 Lipid Ord30 HDL 43.0 mg/dl 08/03/2017 Lipid Ord30 TRIG 278 mg/dL 08/03/2017 Lipid Ord30 LDL 116 mg/dL 08/03/2017 Lipid Ord30 C/HDL 5.0 Ratio 08/03/2017 Tsh Ord6 hTSH II 0.09 uIU/mL 08/03/2017 Comp Metabolic Huw570 NA 137 mEq/L 08/03/2017 Comp Metabolic Xgr365 K 4.3 mEq/L 08/03/2017 Comp Metabolic Wqo158 CL 102 mEq/L 08/03/2017 Comp Metabolic Epb541 CO2 24.0 mEq/L 08/03/2017 Comp Metabolic Zfh392 ANION GAP 15 08/03/2017 Comp Metabolic Aal129 GLUCOSE 80 mg/dL 08/03/2017 Comp Metabolic Yrp475 Creat 0.9 mg/dL 08/03/2017 Comp Metabolic Wet047 eGFR 68 ml/min/1.73m2 08/03/2017 Comp Metabolic Nmp166 BUN 18 mg/dL 08/03/2017 Comp Metabolic Gsd087 B/C Ratio 20.5 Ratio 08/03/2017 Comp Metabolic Wnm199 CALCIUM 9.7 mg/dL 08/03/2017 Comp Metabolic Zto696 ALK PHOS 68 U/L 08/03/2017 Comp Metabolic Amm368 AST(SGOT) 14 U/L 08/03/2017 Comp Metabolic Crt011 ALT(SGPT) 14 U/L 08/03/2017 Comp Metabolic Zis948 BILI T 0.6 mg/dL 08/03/2017 Comp Metabolic Pek608 ALBUMIN 4.0 g/dL 08/03/2017 Comp Metabolic Kux940 TPRO 6.4 g/dL 08/03/2017 Comp Metabolic Fkh478 GLOB 2.4 g/dL 08/03/2017 Comp Metabolic Frx413 A/G Ratio 1.7 Ratio 08/03/2017 Comp Metabolic Tgp171 Osmo 275 mOsmo 08/03/2017 %Hba1C Bik831 % HbA1c 54307- 6 5.1 % 01/06/2017 %Hba1C Umn159 Gluc Ave 100 mg/dL 01/06/2017 Lipid Ord30 CHOL 223 mg/dL 01/06/2017 Lipid Ord30 HDL 44.0 mg/dl 01/06/2017 Lipid Ord30 TRIG 292 mg/dL 01/06/2017 Lipid Ord30 LDL 121 mg/dL 01/06/2017 Lipid Ord30 C/HDL 5.1 Ratio 01/06/2017 Tsh Ord6 hTSH II 0.99 uIU/mL 01/06/2017 Free T4 Vby416 FREE T4 0.96 ng/dL 01/06/2017 Cbc With [...] 29.6 pg 01/06/2017 Cbc With Differential Ord2 [place]% 9.2 % 01/06/2017 Cbc With Differential Ord2 [...] 1.85 K/ul 01/06/2017 Cbc With Differential Ord2 [place] ABS# 0.6 K/ul 01/06/2017 Cbc With Differential Ord2 Eos ABS# 0.1 K/ul 01/06/2017 Cbc With Differential Ord2 Baso ABS# 0.0 K/ul 01/06/2017 Vitamin D 25 Oh Jyc4811 VITAMIN D, 25 HYDROXY 35.10 ng/mL 01/06/2017 Comp Metabolic Tuu200 NA 140 mEq/L 01/06/2017 Comp Metabolic Liz624 K 4.3 mEq/L 01/06/2017 Comp Metabolic Lfz363 CL 103 mEq/L 01/06/2017 Comp Metabolic Weu862 CO2 29.0 mEq/L 01/06/2017 Comp Metabolic Hmo941 ANION GAP 12 01/06/2017 Comp Metabolic Shg657 GLUCOSE 86 mg/dL 01/06/2017 Comp Metabolic Gqg149 Creat 0.8 mg/dL 01/06/2017 Comp Metabolic Zkz238 eGFR 82 ml/min/1.73m2 01/06/2017 Comp Metabolic Poq163 BUN 19 mg/dL 01/06/2017 Comp Metabolic Fun968 B/C Ratio 25.3 Ratio 01/06/2017 Comp Metabolic Jke560 CALCIUM 9.6 mg/dL 01/06/2017 Comp Metabolic Jjj239 ALK PHOS 77 U/L 01/06/2017 Comp Metabolic Uks917 AST(SGOT) 16 U/L 01/06/2017 Comp Metabolic Vmv222 ALT(SGPT) 18 U/L 01/06/2017 Comp Metabolic Wxm769 BILI T 0.4 mg/dL 01/06/2017 Comp Metabolic Kme067 ALBUMIN 4.1 g/dL 01/06/2017 Comp Metabolic Lzh857 TPRO 6.7 g/dL 01/06/2017 Comp Metabolic Wsz191 GLOB 2.6 g/dL 01/06/2017 Comp Metabolic Ohq582 A/G Ratio 1.6 Ratio 01/06/2017 Comp Metabolic Jrp707 Osmo 281 mOsmo 01/06/2017 Vitamin D 25 Oh Moq0180 VITAMIN D, 25 HYDROXY 42.77 ng/mL 07/09/2016 Free T4 Iwj937 FREE T4 1.23 ng/dL 07/08/2016 Comp Metabolic Fmz133 NA 136 mEq/L 07/08/2016 Comp Metabolic Vun462 K 4.1 mEq/L 07/08/2016 Comp Metabolic Bgs788 CL 103 mEq/L 07/08/2016 Comp Metabolic Kdt037 CO2 26.0 mEq/L 07/08/2016 Comp Metabolic Kxm555 ANION GAP 11 07/08/2016 Comp Metabolic Ugl599 GLUCOSE 83 mg/dL 07/08/2016 Comp Metabolic Owf407 Creat 0.8 mg/dL 07/08/2016 Comp Metabolic Zjt722 eGFR 80 ml/min/1.73m2 07/08/2016 Comp Metabolic Aga310 BUN 22 mg/dL 07/08/2016 Comp Metabolic Mec556 B/C Ratio 28.9 Ratio 07/08/2016 Comp Metabolic Hrp589 CALCIUM 9.8 mg/dL 07/08/2016 Comp Metabolic Ccs208 ALK PHOS 75 U/L 07/08/2016 Comp Metabolic Aqg275 AST(SGOT) 14 U/L 07/08/2016 Comp Metabolic Gpe023 ALT(SGPT) 15 U/L 07/08/2016 Comp Metabolic Ugl439 BILI T 0.4 mg/dL 07/08/2016 Comp Metabolic Xvc127 ALBUMIN 4.1 g/dL 07/08/2016 Comp Metabolic Pve067 TPRO 6.6 g/dL 07/08/2016 Comp Metabolic Blg136 GLOB 2.5 g/dL 07/08/2016 Comp Metabolic Dtq228 A/G Ratio 1.7 Ratio 07/08/2016 Comp Metabolic Cdi884 Osmo 274 mOsmo 07/08/2016 %Hba1C Plw325 % HbA1c 74390- 6 5.4 % 07/08/2016 %Hba1C Kik700 Gluc Ave 108 mg/dL 07/08/2016 Cbc With [...] 88.0 fl 07/08/2016 Cbc With Differential Ord2 MCH 29.8 pg 07/08/2016 Cbc With Differential Ord2 [place]% 10.1 % 07/08/2016 Cbc With Differential Ord2 MCHC 33.8 pg 07/08/2016 Cbc With Differential Ord2 Eos% 2.2 % 07/08/2016 Cbc With Differential Ord2 Baso% 0.3 % 07/08/2016 Cbc With Differential Ord2 PLT 193 K/ul 07/08/2016 Cbc With Differential Ord2 RDW 14.4 % 07/08/2016 Cbc With Differential Ord2 Neut ABS# 4.14 K/ul 07/08/2016 Cbc With Differential Ord2 Lymph ABS# 1.89 K/ul 07/08/2016 Cbc With Differential Ord2 [place] ABS# 0.7 K/ul 07/08/2016 Cbc With Differential Ord2 Eos ABS# 0.2 K/ul 07/08/2016 Cbc With Differential Ord2 Baso ABS# 0.0 K/ul 07/08/2016 Tsh Ord6 hTSH II 0.21 uIU/mL 07/08/2016 Lipid Ord30 CHOL 210 mg/dL 07/08/2016 Lipid Ord30 HDL 41.0 mg/dl 07/08/2016 Lipid Ord30 TRIG 257 mg/dL 07/08/2016 Lipid Ord30 LDL 118 mg/dL 07/08/2016 Lipid Ord30 C/HDL 5.1 Ratio 07/08/2016 Vitamin D 25 Oh Uti2784 VITAMIN D, 25 HYDROXY 34.38 ng/mL 03/10/2016 %Hba1C Vyz944 % HbA1c 10453- 6 5.3 % 03/09/2016 %Hba1C Oat075 Gluc Ave 105 mg/dL 03/09/2016 Comp Metabolic Sdk252 NA 137 mEq/L 03/09/2016 Comp Metabolic Zbp017 K 4.5 mEq/L 03/09/2016 Comp Metabolic Vws633 CL 104 mEq/L 03/09/2016 Comp Metabolic Mys125 CO2 27.0 mEq/L 03/09/2016 Comp Metabolic Omk032 ANION GAP 11 03/09/2016 Comp Metabolic Fen204 GLUCOSE 86 mg/dL 03/09/2016 Comp Metabolic Jwa710 Creat 0.8 mg/dL 03/09/2016 Comp Metabolic Iom231 eGFR 81 ml/min/1.73m2 03/09/2016 Comp Metabolic Yjl165 BUN 23 mg/dL 03/09/2016 Comp Metabolic Iby419 B/C Ratio 30.3 Ratio 03/09/2016 Comp Metabolic Usu210 CALCIUM 9.4 mg/dL 03/09/2016 Comp Metabolic Mfx748 ALK PHOS 69 U/L 03/09/2016 Comp Metabolic Lih112 AST(SGOT) 14 U/L 03/09/2016 Comp Metabolic Jvi004 ALT(SGPT) 14 U/L 03/09/2016 Comp Metabolic Cdh817 BILI T 0.4 mg/dL 03/09/2016 Comp Metabolic Njn978 ALBUMIN 4.1 g/dL 03/09/2016 Comp Metabolic Xdw120 TPRO 6.6 g/dL 03/09/2016 Comp Metabolic Lmg953 GLOB 2.5 g/dL 03/09/2016 Comp Metabolic Yol675 A/G Ratio 1.6 Ratio 03/09/2016 Comp Metabolic Hww878 Osmo 277 mOsmo 03/09/2016 Tsh Ord6 hTSH II 0.38 uIU/mL 03/09/2016 Cbc With Differential Ord2 WBC 8.22 K/ul 03/09/2016 Cbc With Differential Ord2 RBC 4.56 M/ul 03/09/2016 Cbc With Differential Ord2 HGB 13.2 g/dl 03/09/2016 Cbc With Differential Ord2 Neut% 60.7 % 03/09/2016 Cbc With Differential Ord2 HCT 39.2 % 03/09/2016 Cbc With Differential Ord2 Lymph% 26.3 % 03/09/2016 Cbc With Differential Ord2 MCV 86.0 fl 03/09/2016 Cbc With Differential Ord2 [place]% 11.1 % 03/09/2016 Cbc With Differential Ord2 MCH 28.9 pg 03/09/2016 Cbc With Differential Ord2 Eos% 1.7 % 03/09/2016 Cbc With Differential Ord2 MCHC 33.7 pg 03/09/2016 Cbc With Differential Ord2 PLT 204 K/ul 03/09/2016 Cbc With Differential Ord2 Baso% 0.2 % 03/09/2016 Cbc With Differential Ord2 RDW 14.5 % 03/09/2016 Cbc With Differential Ord2 Neut ABS# 4.99 K/ul 03/09/2016 Cbc With Differential Ord2 Lymph ABS# 2.16 K/ul 03/09/2016 Cbc With Differential Ord2 [place] ABS# 0.9 K/ul 03/09/2016 Cbc With Differential Ord2 Eos ABS# 0.1 K/ul 03/09/2016 Cbc With Differential Ord2 Baso ABS# 0.0 K/ul 03/09/2016 Lipid Ord30 CHOL 283 mg/dL 03/09/2016 Lipid Ord30 HDL 40.0 mg/dl 03/09/2016 Lipid Ord30 TRIG 271 mg/dL 03/09/2016 Lipid Ord30 LDL 189 mg/dL 03/09/2016 Lipid Ord30 C/HDL 7.1 Ratio 03/09/2016 Comp Metabolic Bwk718 NA 137 mEq/L 09/15/2015 Comp Metabolic Lva786 K 4.4 mEq/L 09/15/2015 Comp Metabolic Geo340 CL 101 mEq/L 09/15/2015 Comp Metabolic Ldw858 CO2 28.0 mEq/L 09/15/2015 Comp Metabolic Mtv789 ANION GAP 12 09/15/2015 Comp Metabolic Kdp059 GLUCOSE 89 mg/dL 09/15/2015 Comp Metabolic Tak289 Creat 0.8 mg/dL 09/15/2015 Comp Metabolic Wml869 eGFR 73 ml/min/1.73m2 09/15/2015 Comp Metabolic Ute407 BUN 20 mg/dL 09/15/2015 Comp Metabolic Oef458 B/C Ratio 24.1 Ratio 09/15/2015 Comp Metabolic Ccc792 CALCIUM 10.1 mg/dL 09/15/2015 Comp Metabolic Ivf423 ALK PHOS 72 U/L 09/15/2015 Comp Metabolic Rsr264 AST(SGOT) 16 U/L 09/15/2015 Comp Metabolic Gim266 ALT(SGPT) 15 U/L 09/15/2015 Comp Metabolic Tpb943 BILI T 0.5 mg/dL 09/15/2015 Comp Metabolic Ujo878 ALBUMIN 4.4 g/dL 09/15/2015 Comp Metabolic Shr895 TPRO 7.0 g/dL 09/15/2015 Comp Metabolic Rpb500 GLOB 2.6 g/dL 09/15/2015 Comp Metabolic Qel750 A/G Ratio 1.7 Ratio 09/15/2015 Comp Metabolic Sck690 Osmo 276 mOsmo 09/15/2015 Tsh Ord6 hTSH II 2.99 uIU/mL 09/15/2015 Vitamin D 25 Oh Lel3118 VITAMIN D, 25 HYDROXY 30.19 ng/mL 09/15/2015 [...] Lipid Ord30 C/HDL 7.0 Ratio 09/15/2015 %Hba1C Jkc164 % HbA1c 45945- 6 5.2 % 09/15/2015 %Hba1C Haq106 Gluc Ave 103 mg/dL 09/15/2015 Review of [...] clear 04/14/2018 None Full Exam - General 1995 Ears/Nose/Throat otoscopic exam Overall: tympanic membranes clear 04/14/2018 None Full Exam - General 1995 Ears/Nose/Throat [...] Formatting Model/CDA Sections, Assigned to/Margarita Brock CPT-4: 28187Mixajzo 07/27/2018 FLU VAC NO PRSV 4 SHANNON 3 YRS+ CPT-4: 22600 08/04/2017 ADMIN INFLUENZA VIRUS VAC CPT-4: G0008 08/04/2017 TRIAMCINOLONE ACET INJ NOS CPT-4: J3301 01/27/2017 THER/PROPH/DIAG INJ SC/IM CPT-4: 60016 01/27/2017 ADMIN INFLUENZA VIRUS VAC CPT-4: G0008 07/15/2016 FLU VACC 4 SHANNON 3 YRS PLUS IM SNOMED CT: [id number] CPT-4: 25069 07/15/2016 Vital Signs Date Vital 10/26/2018 Blood Pressure 1: 132/76 Code: 8480-6 BMI: 34.5 Code: 34700-2 Heart Rate 1: 55 bpm Height: 5'4" SpO2: 99% Weight: 204 lbs 07/20/2018 Blood Pressure 1: 116/74 Code: 8480-6 BMI: 34.5 Code: 95266-5 Heart Rate 1: 52 bpm Height: 5'4" SpO2: 99% Weight: 204 lbs 04/14/2018 Blood Pressure 1: 128/76 Code: 8480-6 BMI: 34.5 Code: 16923-2 Heart Rate 1: 67 bpm Height: 5'4" SpO2: 95% Weight: 204 lbs 02/06/2018 Blood Pressure 1: 142/78 Code: 8480-6 BMI: 35.2 Code: 21899-6 Heart Rate 1: 58 bpm Height: 5'4" SpO2: 98% Weight: 208 lbs 01/12/2018 Blood Pressure 1: 132/82 Code: 8480-6 BMI: 34.8 Code: 51612-5 Height: 5'4" Weight: 206 lbs 08/04/2017 Blood Pressure 1: 140/82 Code: 8480-6 BMI: 31.9 Code: 89532-5 Heart Rate 1: 58 bpm Height: 5'4" SpO2: 99% Weight: 188 lbs 8 oz 07/19/2017 Blood Pressure 1: 136/76 Code: 8480-6 BMI: 32.0 Code: 24481-8 Heart Rate 1: 67 bpm Height: 5'4" SpO2: 97% Weight: 189 lbs 8 oz 05/05/2017 Blood Pressure 1: 142/80 Code: 8480-6 BMI: 32.4 Code: 20860-4 Heart Rate 1: 54 bpm Height: 5'4" SpO2: 98% Weight: 191 lbs 8 oz 01/27/2017 Blood Pressure 1: 132/82 Code: 8480-6 BMI: 34.1 Code: 90597-5 Heart Rate 1: 55 bpm Height: 5'4" SpO2: 99% Weight: 202 lbs 07/15/2016 Blood Pressure 1: 128/72 Code: 8480-6 BMI: 34.4 Code: 60923-6 Heart Rate 1: 50 bpm Height: 5'4" SpO2: 98% Weight: 203 lbs 8 oz 03/16/2016 Blood Pressure 1: 118/78 Code: 8480-6 BMI: 34.5 Code: 90669-0 Heart Rate 1: 55 bpm Height: 5'4" SpO2: 98% Weight: 204 lbs 09/15/2015 Blood Pressure 1: 134/72 Code: 8480-6 BMI: 34.6 Code: 73591-9 Heart Rate 1: 52 bpm Height: 5'4" SpO2: 99% Weight: 205 lbs 03/17/2015 Blood Pressure 1: 128/74 Code: 8480-6 BMI: 35.8 Code: 49499-0 Heart Rate 1: 59 bpm Height: 5'4" [...] data Encounters Encounter Performer Location Codes Date ([id number]) [id number] EST. PATIENT, LEVEL IV Diagnosis: Essential (primary) hypertension[ICD10: I10] Diagnosis: Type 2 diabetes mellitus with diabetic polyneuropathy[ICD10: E11.42] Diagnosis: Hypothyroidism, unspecified[ICD10: E03.9] Diagnosis: Mixed hyperlipidemia[ICD10: E78.2] Diagnosis: Lumbago with sciatica, right side[ICD10: M54.41] Delmis Bermudez MD, [facility] CPT-4: 15897 10/26/2018 [id number]) [id number] EST. PATIENT, LEVEL IV Diagnosis: Type 2 diabetes mellitus with diabetic polyneuropathy[ICD10: E11.42] Diagnosis: Mixed hyperlipidemia[ICD10: E78.2] Diagnosis: Essential (primary) hypertension[ICD10: I10] Diagnosis: Vitamin D deficiency, unspecified[ICD10: E55.9] Diagnosis: Hypothyroidism, unspecified[ICD10: E03.9] Delmis Bermudez MD, [facility] CPT-4: 99076 07/20/2018 [id number]) [id number] EST. PATIENT, LEVEL IV Diagnosis: Essential (primary) hypertension[ICD10: I10] Diagnosis: Hypothyroidism, unspecified[ICD10: E03.9] Diagnosis: Mixed hyperlipidemia[ICD10: E78.2] Delmis Bermudez MD, [facility] CPT- 4: 27989 04/14/2018 [id number] EST. PATIENT, LEVEL III Diagnosis: Type 2 diabetes mellitus with diabetic polyneuropathy[ICD10: E11.42] Delmis Bermudez MD, [facility] CPT-4: 13655 02/06/2018 ([id number]) [id number] EST. PATIENT, LEVEL IV Diagnosis: Mixed hyperlipidemia[ICD10: E78.2] Diagnosis: Hypothyroidism, unspecified[ICD10: E03.9] Diagnosis: Type 2 diabetes mellitus without complications[ICD10: E11.9] Delmis Bermudez MD, [facility] CPT-4: 99873 01/12/2018 ([id number]) [id number] EST. PATIENT, LEVEL IV Diagnosis: Essential (primary) hypertension[ICD10: I10] Diagnosis: Mixed hyperlipidemia[ICD10: E78.2] Diagnosis: Hypothyroidism, unspecified[ICD10: E03.9] Diagnosis: Type 2 diabetes mellitus without complications[ICD10: E11.9] Diagnosis: Encounter for immunization[ICD10: Z23] Delmis Bermudez MD, [facility] CPT-4: 41830 08/04/2017 [id number]) 78872 EST. PATIENT, LEVEL III Diagnosis: Diverticulitis of large intestine without perforation or abscess without bleeding[ICD10: K57.32] Delmis Bermudez MD, [facility] CPT-4: 72906 07/19/2017 [id number]) 23979 EST. PATIENT, LEVEL III Diagnosis: Type 2 diabetes mellitus with diabetic polyneuropathy[ICD10: E11.42] Delmis Bermudez MD, [facility] CPT-4: 82644 05/05/2017 [id number]) 01232 EST. PATIENT, LEVEL IV Diagnosis: Essential (primary) hypertension[ICD10: I10] Diagnosis: Type 2 diabetes mellitus without complications[ICD10: E11.9] Diagnosis: Mixed hyperlipidemia[ICD10: E78.2] Diagnosis: Allergic rhinitis due to pollen[ICD10: J30.1] Ria Bermudez MD, [facility] CPT-4: 76030 01/27/2017 ([id number]) 63622 EST. PATIENT, LEVEL IV Diagnosis: Type 2 diabetes mellitus without complications[ICD10: E11.9] Diagnosis: Essential (primary) hypertension[ICD10: I10] Diagnosis: Mixed hyperlipidemia[ICD10: E78.2] Ria Bermudez MD, [facility] CPT- 4: 09201 07/15/2016 ([id number]) 36937 EST. PATIENT, LEVEL IV Diagnosis: Type 2 diabetes mellitus without complications[ICD10: E11.9] Diagnosis: Polyneuropathy, unspecified[ICD10: G62.9] Diagnosis: Mixed hyperlipidemia[ICD10: E78.2] Ria Bermudez MD, [facility] CPT- 4: 75863 03/16/2016 ([id number]) 07644 EST. PATIENT, LEVEL IV Diagnosis: Type 2 diabetes mellitus without complications[ICD10: E11.9] Diagnosis: Essential (primary) hypertension[ICD10: I10] Diagnosis: Vitamin D deficiency, unspecified[ICD10: E55.9] Diagnosis: Mixed hyperlipidemia[ICD10: E78.2] Ria Bermudez MD, [employer] CPT- 4: 30464 09/15/2015 ([id number]) OFFICE VISIT, NEW - LEVEL 4 Diagnosis: ESSENTIAL HYPERTENSION[ICD9: 401.9] Diagnosis: Diabetes mellitus type 2, controlled[ICD9: 250.00] Diagnosis: Peripheral neuropathy[ICD9: 356.9] Delmis Bermudez MD, [facility] CPT- 4: 37075 03/17/2015 Plan of Care Planned Activity Notes [...] not improve or if they worsen. 10/26/2018 Patient Education: Patient Medication Summary Completed 10/26/2018 Patient Education: Cholesterol Management Completed 10/26/2018 Care Plan: Comp Metabolic Pending 10/26/2018 Care Plan: Cbc With Differential Pending 10/26/2018 Care Plan: %Hba1C LOINC : 19360-2 Pending 10/26/2018 Care Plan: Tsh Pending 10/26/2018 Care Plan: Lipid Pending 10/26/2018 Care Plan: Free T4 Pending 10/26/2018 Patient Education: Patient Medication Summary Completed [...] control. 07/20/2018 Appointment: [phone] (15 min) Moderate 07/20/2018 Patient Education: Patient [...] it 04/14/2018 Appointment: Delmis Her WPtel: [phone] [phone] (15 min) Moderate 04/14/2018 Patient Education: Patient Medication Summary Completed 04/14/2018 Visit Plan: Diabetic peripheral neuropathy -paperwork for diabetic shoes completed today in the office and will fax to Dr Briscoe's office- Patient verbalized understanding of plan. 02/06/2018 Appointment: Delmis Her [facility]el[phone] [facility] [phone] (15 min) Moderate 02/06/2018 Patient Education: Patient [...] control. 01/12/2018 Appointment: [facility]mis Her [facility]Ptel[phone] [phone] (30 min) Complex 01/12/2018 Patient Education: Patient [...] medications. 08/04/2017 Appointment: [facility] Her [phone] [phone] (30 min) Complex 08/04/2017 Patient Education: Patient Medication Summary Completed 08/04/2017 Patient Education: Obesity Completed 08/04/2017 Care Plan: %Hba1C LOINC : 35839-8 Pending 08/04/2017 Visit Plan: Diverticulitis - rx for antibiotic sent to pt's pharmacy - pt advised to avoid seeds, nuts, popcorn, or any other food which has been proven to upset the pt's stomach. Call if symptoms do not improve or if any worse and we will check labs and CT scan. Patient verbalized understanding of plan. 07/19/2017 Appointment: Delmis Hre WPtel: [phone] [phone] (30 min) Complex 07/19/2017 Patient Education: Patient Medication Summary Completed 07/19/2017 Patient Education: Obesity Completed 07/19/2017 Visit Plan: Diabetic peripheral neuropathy - diabetes paperwork completed today in the office-patient does want to start medication-RX for gabapentin sent electronically and provided and instructed on use. Patient verbalized understanding of plan. 05/05/2017 Appointment: Delmis Her WPtel: [phone] [phone] (30 min) Complex 05/05/2017 Patient Education: Patient Medication Summary Completed 05/05/2017 Patient Education: Obesity Completed 05/05/2017 Appointment: Delmis Her WPtel: [phone] [phone] [facility] - Annual Wellness Visit 01/28/2017 Visit [...] kenalog 01/27/2017 Appointment: Ria Bermudez WPtel: [phone] [facility] (15 min) Moderate 01/27/2017 Patient Education: Patient Medication Summary Completed 01/27/2017 Patient Education: Obesity Completed 01/27/2017 Appointment: Ria Bermudez WPtel[facility] [phone] [facility] [place] (15 min) Moderate 01/11/2017 Visit Plan: Hypertension [...] dications. 07/15/2016 Appointment: Ria Bermudez WPtel: [phone] [facility] [place] [address] (15 min) Moderate 07/15/2016 Patient Education: Patient [...] this time. 03/16/2016 Appointment: Ria Bermudez WPtel: [facility] [place] [address] (15 min) Moderate 03/16/2016 Patient Education: Patient [...] are starting to become less controlled. Peripheral idtavbaqtd-BM-glmjuriv foot exam today in the office and [...] are starting to become less controlled. Peripheral msfmqrbbon-WW-tswvwagk foot exam today in the office and [...] are starting to become less controlled. Peripheral zorjxzspzi-NN-lmhellrs foot exam today in the office and paperwork completed for diabetic shoes-see scanned document 03/17/2015 Appointment: Ria Bermudez WPtel: [phone] [facility] [place] [address] [place] New Patient 03/17/2015 Patient Education: [...] are starting to become less controlled. Peripheral aiqbpkewji-KZ-zrjbursm foot exam today in the office and [...] are starting to become less controlled. Peripheral pwioztfaul-GV-kgdfdjyj foot exam today in the office and [...] are starting to become less controlled. Peripheral pcgxnrkkij-FY-xkulximp foot exam today in the office and [...]
[2019-04-04 07:22] LABS: HEMOGLOBIN 14.5 G/DL (11.5-16.0); MEAN PLATELET VOLUME 10.7 FL (7.4-10.4); RED CELL DISTRIBUTION WIDTH 14.3 % (10.0-14.5)
--- OUTSIDE RECORDS SUMMARY | 2019-04-04 07:22 | XMS REPORT | CCD ---
Author Author Delmis Her Organization Ria Bermudez MD, [facility] Address [address] [place] [address] Phone Care Team Providers Care Dimension [employer] Supervisor Name Role Phone PP Unavailable CCM Unavailable Summary Purpose Interface Exchange Insurance Providers Payer name Policy type / Coverage type Covered constitution party ID Effective Begin Date Effective End Date WPS Medicare Part B Medicare Part B [id number] Unknown [facility] Medicare Part B [id number] Unknown Family history Son Diagnosis Age At [...] Unknown Retired 03/17/[address]: 043506482 Never smoker 03/17/[address]: 737306233 Never smoker 03/17/2015 Allergies, Adverse Reactions, Alerts Substance Reaction Codes Entered Date Inactivated Date Status * NO KNOWN FOOD ALLERGIES Unknown 03/17/2015 No Inactive Date Active ciprofloxacin RxNorm: 24264 03/17/2015 No Inactive Date Active Erythromycin RxNorm: 4053 03/17/2015 No Inactive Date Active Penicillin Unknown 03/17/2015 No Inactive Date Active [id number] REDUCTASE INHIBITORS myalgias, Unknown 03/16/2016 No Inactive Date Active SULFA(SULFONAMIDE ANTIBIOTICS) Unknown 03/17/2015 No Inactive Date Active Past Medical History Illness Codes Condition Status Onset Date Resolved Date Encounter for screening mammogram for malignant neoplasm of breast ICD-9: V76.12 ICD-10: Z12.31 Active 02/19/2016 Unknown Encounter for immunization ICD-9: V04.81 ICD-10: Z23 Active 07/14/2016 Unknown Essential (primary) hypertension ICD-9: 401.1 ICD-10: I10 Active 01/27/2017 Unknown Hypothyroidism, unspecified ICD-9: 244.9 ICD-10: E03.9 Active 08/04/2017 Unknown Mixed hyperlipidemia ICD- 9: 272.2 ICD-10: E78.2 Active 07/14/2016 Unknown Type 2 diabetes mellitus with diabetic polyneuropathy ICD-9: 250.60 ICD-10: E11.42 Active 05/05/2017 Unknown Vitamin D deficiency, unspecified ICD-9: 268.9 [...] Problems Condition Codes Effective Dates Condition Status Encounter for screening mammogram for malignant neoplasm of breast ICD-9: V76.12 ICD-10: Z12.31 02/19/2016 Active Encounter for immunization ICD-9: V04.81 ICD-10: Z23 07/14/2016 Active Essential (primary) hypertension ICD-9: 401.1 ICD-10: I10 01/27/2017 Active Hypothyroidism, unspecified ICD-9: 244.9 ICD-10: E03.9 08/04/2017 Active Mixed hyperlipidemia ICD- 9: 272.2 ICD-10: E78.2 07/14/2016 Active Type 2 diabetes mellitus with diabetic polyneuropathy ICD-9: 250.60 ICD-10: E11.42 05/05/2017 Active Vitamin D deficiency, unspecified ICD-9: 268.9 [...] Fill Instructions Zetia 10 mg tablet RxNorm: 015793 1/2 Tablet(s) PO daily 07/20/2018 No Stop Date Active levothyroxine 112 mcg tablet RxNorm: 702968 TAKE ONE TABLET BY MOUTH EVERY OTHER DAY ALTERNATE WITH 100MCG TABLET 07/19/2018 11/15/2018 Active indapamide 1.25 mg tablet RxNorm: 861159 Tablet(s) TAKE ONE TABLET BY MOUTH DAILY 07/19/2018 07/13/2019 Active gabapentin 100 mg capsule RxNorm: 749086 TAKE ONE CAPSULE BY MOUTH EVERY NIGHT AT BEDTIME 06/05/2018 09/02/2018 Active Zetia 10 mg tablet RxNorm: 285053 1 Tablet(s) PO daily 05/11/2018 07/19/2018 Inactive Zetia 10 mg tablet RxNorm: 621819 1 Tablet(s) PO daily 05/11/2018 05/10/2018 Inactive enalapril maleate 5 mg tablet RxNorm: 867723 TAKE ONE TABLET BY MOUTH DAILY 04/05/2018 12/30/2018 Active indapamide 1.25 mg tablet RxNorm: 034174 TAKE ONE TABLET BY MOUTH DAILY 04/05/2018 07/18/2018 Inactive levothyroxine 100 mcg tablet RxNorm: 118864 Tablet(s) TAKE ONE TABLET BY MOUTH EVERY OTHER DAY. ALTERNATE WITH 112 MCG TABLET. 01/24/2018 05/23/2018 Inactive levothyroxine 112 mcg tablet RxNorm: 498823 1 Tablet(s) PO every other day . ALTERNATE WITH 100 MCG TABLET. 01/24/2018 05/23/2018 Inactive Crestor 10 mg tablet RxNorm: 716436 1 Tablet(s) PO QHS 01/24/2018 04/13/2018 Inactive Crestor 10 mg tablet RxNorm: 624994 1 Tablet(s) PO QHS 01/24/2018 01/23/2018 Inactive gabapentin 100 mg capsule RxNorm: 847220 TAKE ONE CAPSULE BY MOUTH EVERY NIGHT AT BEDTIME 01/05/2018 06/04/2018 Inactive indapamide 1.25 mg tablet RxNorm: 700417 TAKE ONE TABLET BY MOUTH DAILY 01/05/2018 04/04/2018 Inactive Zocor 20 mg tablet RxNorm: 971724 TAKE ONE TABLET BY MOUTH DAILY 12/02/2017 01/11/2018 Inactive Phenergan-Codeine 6.25 mg-10 mg/5 mL syrup RxNorm: 391439 5-10 Milliliter(s) PO Q6 as needed cough 11/09/2017 No Stop Date Active Tamiflu 75 mg capsule RxNorm: 645955 1 Capsule(s) PO BID 11/09/2017 11/13/2017 Inactive Tamiflu 75 mg capsule RxNorm: 039652 1 Capsule(s) PO BID 11/09/2017 11/08/2017 Inactive levothyroxine 100 mcg tablet RxNorm: 725211 TAKE ONE TABLET BY MOUTH DAILY 10/28/2017 01/23/2018 Inactive indapamide 1.25 mg tablet RxNorm: 432042 TAKE ONE TABLET BY MOUTH DAILY 09/09/2017 01/04/2018 Inactive levothyroxine 100 mcg tablet RxNorm: 035586 1 Tablet(s) PO daily TAKE ONE TABLET BY MOUTH DAILY 08/04/2017 10/27/2017 Inactive Flagyl 500 mg tablet RxNorm: 787304 1 Tablet(s) PO TID 07/19/2017 07/28/2017 Inactive enalapril maleate 5 mg tablet RxNorm: 189670 TAKE ONE TABLET BY MOUTH DAILY 06/30/2017 12/26/2017 Inactive indapamide 1.25 mg tablet RxNorm: 186604 TAKE ONE TABLET BY MOUTH DAILY 05/26/2017 09/08/2017 Inactive Zocor 20 mg tablet RxNorm: 854170 TAKE ONE TABLET BY MOUTH DAILY 05/26/2017 10/22/2017 Inactive gabapentin 100 mg capsule RxNorm: 733422 1 Capsule(s) PO QHS 05/05/2017 09/01/2017 Inactive Kenalog 40 mg/mL suspension for injection RxNorm: 2059347 1 Milliliter(s) Inj 01/27/2017 01/27/2017 Inactive levothyroxine 112 mcg tablet RxNorm: 202280 TAKE ONE TABLET BY MOUTH DAILY 01/17/2017 08/03/2017 Inactive Zocor 20 mg tablet RxNorm: 948904 TAKE ONE TABLET BY MOUTH DAILY 11/08/2016 05/06/2017 Inactive indapamide 1.25 mg tablet RxNorm: 603539 TAKE ONE TABLET BY MOUTH DAILY 11/08/2016 05/06/2017 Inactive enalapril maleate 5 mg tablet RxNorm: 531410 TAKE ONE TABLET BY MOUTH DAILY 09/01/2016 05/28/2017 Inactive indapamide 1.25 mg tablet RxNorm: 453603 TAKE ONE TABLET BY MOUTH DAILY 08/02/2016 10/30/2016 Inactive Vitamin D2 50,000 unit capsule RxNorm: 414783 1 Capsule(s) PO QW 07/15/2016 01/17/2018 Inactive indapamide 1.25 mg tablet RxNorm: 279643 TAKE ONE TABLET BY MOUTH DAILY 04/29/2016 07/27/2016 Inactive Vitamin D2 50,000 unit capsule RxNorm: 775015 1 Capsule(s) PO QW 03/16/2016 07/14/2016 Inactive Zocor 20 mg tablet RxNorm: 911679 1 Tablet(s) PO daily 03/16/2016 10/11/2016 Inactive levothyroxine 112 mcg tablet RxNorm: 282391 TAKE ONE TABLET BY MOUTH DAILY 01/07/2016 12/31/2016 Inactive indapamide 1.25 mg tablet RxNorm: 297809 1 Tablet(s) PO daily 12/03/2015 03/31/2016 Inactive Vitamin D2 50,000 unit capsule RxNorm: 552181 1 Capsule(s) PO QW 09/26/2015 09/25/2015 Inactive Lipitor 10 mg tablet RxNorm: 892627 1 Tablet(s) PO daily 09/26/2015 03/15/2016 Inactive Vitamin D2 50,000 unit capsule RxNorm: 731460 1 Capsule(s) PO QW 09/26/2015 03/15/2016 Inactive enalapril maleate 5 mg tablet RxNorm: 155483 1 Tablet(s) PO daily 08/06/2015 07/30/2016 Inactive levothyroxine 112 mcg tablet RxNorm: 973704 1 Tablet(s) PO daily 04/04/2015 10/30/2015 Inactive Vitamin D3 2,000 unit capsule RxNorm: 292686 1 Capsule(s) PO daily No Start Date Active aspirin 500 mg tablet RxNorm: 841518 1 Tablet(s) PO daily No Start Date Active Co Q-10 oral RxNorm: 61198 oral No Start Date Active Phenergan-Codeine 6.25 mg-10 mg/5 mL syrup RxNorm: 549093 5-10 Milliliter(s) PO Q6 as needed cough No Start Date 11/08/2017 Inactive Lipitor 20 mg tablet RxNorm: 767871 1 Tablet(s) PO daily No Start Date 09/14/2015 Inactive indapamide 1.25 mg tablet RxNorm: 787838 1 Tablet(s) PO daily No Start Date 12/02/2015 Inactive enalapril maleate 5 mg tablet RxNorm: 191207 1 Tablet(s) PO daily No Start Date 08/05/2015 Inactive levothyroxine 112 mcg tablet RxNorm: 894870 1 Tablet(s) PO daily No Start Date 04/03/2015 Inactive Medication Administered Medication Codes Instructions Start Date Status Kenalog 40 mg/mL suspension for injection RxNorm: 6249105 1Milliliter 01/27/2017 No longer Active Immunizations Vaccine Codes Date Status Influenza CVX: 141 07/27/2018 completed Influenza CVX: 141 08/04/2017 completed Influenza CVX: 141 07/15/2016 completed Pneumococcal CVX: 133 07/25/2015 completed Zoster CVX: 121 07/25/2015 completed Assessments Condition Codes Effective Dates Encounter for screening mammogram for malignant neoplasm of breast ICD-10: Z12.31 ICD-9: V76.12 08/15/2018 Encounter for immunization ICD-10: Z23 ICD-9: V04.81 07/27/2018 Essential (primary) hypertension ICD-10: I10 ICD-9: 401.1 07/20/2018 Hypothyroidism, unspecified ICD-10: E03.9 ICD-9: 244.9 07/20/2018 Mixed hyperlipidemia ICD-10: E78.2 ICD-9: 272.2 07/20/2018 Vitamin D deficiency, unspecified ICD-10: E55.9 ICD-9: 268.9 07/20/2018 Type 2 diabetes mellitus with diabetic polyneuropathy ICD-10: E11.42 ICD-9: 250.60 07/20/2018 Type 2 diabetes mellitus without complications [...] Visit Reason For Visit Effective Dates Notes vaccination against influenza 07/27/2018 diabetes mellitus 07/20/2018 diabetes mellitus 04/14/2018 diabetes mellitus 02/06/2018 diabetes mellitus 01/12/2018 diabetes mellitus 08/04/2017 abdominal pain 07/19/2017 diabetes mellitus 05/05/2017 hypertension 01/27/2017 hypertension 07/15/2016 hypertension 03/16/2016 fatigue 09/15/2015 diabetes mellitus 03/17/2015 Results Observation Observation Code Item Item Code Result Date %Hba1C Lrv019 % HbA1c 81469- 6 5.3 % 07/20/2018 %Hba1C Eza983 Gluc Ave 105 mg/dL 07/20/2018 Comp Metabolic Kgw492 NA 139 mEq/L 07/20/2018 Comp Metabolic Zsk817 K 5.1 mEq/L 07/20/2018 Comp Metabolic Sqx792 CL 106 mEq/L 07/20/2018 Comp Metabolic Lov052 CO2 19.0 mEq/L 07/20/2018 Comp Metabolic Knp895 ANION GAP 19 07/20/2018 Comp Metabolic Oiu483 GLUCOSE 88 mg/dL 07/20/2018 Comp Metabolic Tro339 Creat 0.8 mg/dL 07/20/2018 Comp Metabolic Iwb947 eGFR 77 ml/min/1.73m2 07/20/2018 Comp Metabolic Knt959 BUN 25 mg/dL 07/20/2018 Comp Metabolic Aue193 B/C Ratio 31.6 Ratio 07/20/2018 Comp Metabolic Iwu039 CALCIUM 10.0 mg/dL 07/20/2018 Comp Metabolic Eae834 ALK PHOS 81 U/L 07/20/2018 Comp Metabolic Iac020 AST(SGOT) 26 U/L 07/20/2018 Comp Metabolic Ewk043 ALT(SGPT) 16 U/L 07/20/2018 Comp Metabolic Xxo871 BILI T 0.5 mg/dL 07/20/2018 Comp Metabolic Yaq513 ALBUMIN 4.5 g/dL 07/20/2018 Comp Metabolic Oys925 TPRO 7.2 g/dL 07/20/2018 Comp Metabolic Bra208 GLOB 2.7 g/dL 07/20/2018 Comp Metabolic Msj260 A/G Ratio 1.6 Ratio 07/20/2018 Comp Metabolic Clg462 Osmo 281 mOsmo 07/20/2018 Free T4 Opl595 FREE T4 1.00 ng/dL 07/20/2018 Tsh Ord6 TSH (3rd IS) 2.05 uIU/mL 07/20/2018 Vitamin D 25 Oh Qdg3822 VITAMIN D, 25 HYDROXY 57.07 ng/mL 07/20/2018 Lipid Ord30 CHOL 242 mg/dL 07/20/2018 Lipid Ord30 HDL 43.0 mg/dl 07/20/2018 Lipid Ord30 TRIG 314 mg/dL 07/20/2018 Lipid Ord30 LDL 136 mg/dL 07/20/2018 Lipid Ord30 C/HDL 5.6 Ratio 07/20/2018 Free T4 Esw133 FREE T4 1.24 ng/dL 04/14/2018 Tsh Ord6 TSH (3rd IS) 0.65 uIU/mL 04/14/2018 %Hba1C Vre764 % HbA1c 47734- 6 5.1 % 01/12/2018 %Hba1C Nme596 Gluc Ave 100 mg/dL 01/12/2018 Free T4 Fum898 FREE T4 0.97 ng/dL 01/12/2018 Lipid Ord30 [...] 14.1 g/dl 01/12/2018 Cbc With Differential Ord2 Neut% 58.0 % 01/12/2018 Cbc With Differential Ord2 HCT 42.4 % 01/12/2018 Cbc With Differential Ord2 Lymph% 29.5 % 01/12/2018 Cbc With Differential Ord2 MCV 89.3 fl 01/12/2018 Cbc With Differential Ord2 MCH 29.7 pg 01/12/2018 Cbc With Differential Ord2 Wilson% 10.3 % 01/12/2018 Cbc With Differential Ord2 [...] 2.40 K/ul 01/12/2018 Cbc With Differential Ord2 Wilson ABS# 0.8 K/ul 01/12/2018 Cbc With Differential Ord2 Eos ABS# 0.2 K/ul 01/12/2018 Cbc With Differential Ord2 Baso ABS# 0.0 K/ul 01/12/2018 Comp Metabolic Zlq343 NA 138 mEq/L 01/12/2018 Comp Metabolic Qrf866 K 4.1 mEq/L 01/12/2018 Comp Metabolic Yiw849 CL 100 mEq/L 01/12/2018 Comp Metabolic Poi870 CO2 28.0 mEq/L 01/12/2018 Comp Metabolic Cug906 ANION GAP 14 01/12/2018 Comp Metabolic Rjh695 GLUCOSE 84 mg/dL 01/12/2018 Comp Metabolic Tgl380 Creat 0.8 mg/dL 01/12/2018 Comp Metabolic Aay211 eGFR 78 ml/min/1.73m2 01/12/2018 Comp Metabolic Mjh078 BUN 20 mg/dL 01/12/2018 Comp Metabolic Xek099 B/C Ratio 25.6 Ratio 01/12/2018 Comp Metabolic Bbb119 CALCIUM 9.6 mg/dL 01/12/2018 Comp Metabolic Qwp213 ALK PHOS 76 U/L 01/12/2018 Comp Metabolic Ffw008 AST(SGOT) 16 U/L 01/12/2018 Comp Metabolic Nma471 ALT(SGPT) 16 U/L 01/12/2018 Comp Metabolic Ifn120 BILI T 0.4 mg/dL 01/12/2018 Comp Metabolic Gnp621 ALBUMIN 4.1 g/dL 01/12/2018 Comp Metabolic Sen604 TPRO 6.7 g/dL 01/12/2018 Comp Metabolic Vgw454 GLOB 2.6 g/dL 01/12/2018 Comp Metabolic Qzh128 A/G Ratio 1.6 Ratio 01/12/2018 Comp Metabolic Vay773 Osmo 277 mOsmo 01/12/2018 Free T4 Meg498 FREE T4 1.40 ng/dL 08/05/2017 %Hba1C Wic973 % HbA1c 22052- 6 5.0 % 08/05/2017 %Hba1C Mta833 Gluc Ave 97 mg/dL 08/05/2017 Cbc With Differential Ord2 WBC 7.11 K/ul 08/03/2017 Cbc With Differential Ord2 RBC 4.61 M/ul 08/03/2017 Cbc With Differential Ord2 HGB 13.6 g/dl 08/03/2017 Cbc With Differential Ord2 HCT 40.4 % 08/03/2017 Cbc With Differential Ord2 Neut% 59.2 % 08/03/2017 Cbc With Differential Ord2 Lymph% 29.5 % 08/03/2017 Cbc With Differential Ord2 MCV 87.6 fl 08/03/2017 Cbc With Differential Ord2 Wilson% 9.3 % 08/03/2017 Cbc With Differential Ord2 MCH 29.5 pg 08/03/2017 Cbc With Differential Ord2 Eos% 1.7 % 08/03/2017 Cbc With Differential Ord2 MCHC 33.7 pg 08/03/2017 Cbc With Differential Ord2 PLT 237 K/ul 08/03/2017 Cbc With Differential Ord2 Baso% 0.3 % 08/03/2017 Cbc With Differential Ord2 Neut ABS# 4.21 K/ul 08/03/2017 Cbc With Differential Ord2 RDW 14.1 % 08/03/2017 Cbc With Differential Ord2 Lymph ABS# 2.10 K/ul 08/03/2017 Cbc With Differential Ord2 Wilson ABS# 0.7 K/ul 08/03/2017 Cbc With Differential Ord2 Eos ABS# 0.1 K/ul 08/03/2017 Cbc With Differential Ord2 Baso ABS# 0.0 K/ul 08/03/2017 Vitamin D 25 Oh Aeo9371 VITAMIN D, 25 HYDROXY 52.73 ng/mL 08/03/2017 Lipid Ord30 CHOL 215 mg/dL 08/03/2017 Lipid Ord30 HDL 43.0 mg/dl 08/03/2017 Lipid Ord30 TRIG 278 mg/dL 08/03/2017 Lipid Ord30 LDL 116 mg/dL 08/03/2017 Lipid Ord30 C/HDL 5.0 Ratio 08/03/2017 Tsh Ord6 hTSH II 0.09 uIU/mL 08/03/2017 Comp Metabolic Hsy513 NA 137 mEq/L 08/03/2017 Comp Metabolic Yvw676 K 4.3 mEq/L 08/03/2017 Comp Metabolic Off990 CL 102 mEq/L 08/03/2017 Comp Metabolic Fnd486 CO2 24.0 mEq/L 08/03/2017 Comp Metabolic Vtq975 ANION GAP 15 08/03/2017 Comp Metabolic Idp843 GLUCOSE 80 mg/dL 08/03/2017 Comp Metabolic Zhw363 Creat 0.9 mg/dL 08/03/2017 Comp Metabolic Qto890 eGFR 68 ml/min/1.73m2 08/03/2017 Comp Metabolic Von897 BUN 18 mg/dL 08/03/2017 Comp Metabolic Kuf414 B/C Ratio 20.5 Ratio 08/03/2017 Comp Metabolic Tdx652 CALCIUM 9.7 mg/dL 08/03/2017 Comp Metabolic Aol759 ALK PHOS 68 U/L 08/03/2017 Comp Metabolic Zlf635 AST(SGOT) 14 U/L 08/03/2017 Comp Metabolic Uxw073 ALT(SGPT) 14 U/L 08/03/2017 Comp Metabolic Rze663 BILI T 0.6 mg/dL 08/03/2017 Comp Metabolic Wlt558 ALBUMIN 4.0 g/dL 08/03/2017 Comp Metabolic Gyx528 TPRO 6.4 g/dL 08/03/2017 Comp Metabolic Llu708 GLOB 2.4 g/dL 08/03/2017 Comp Metabolic Tgn572 A/G Ratio 1.7 Ratio 08/03/2017 Comp Metabolic Msb243 Osmo 275 mOsmo 08/03/2017 %Hba1C Wrg081 % HbA1c 34502- 6 5.1 % 01/06/2017 %Hba1C Vtn138 Gluc Ave 100 mg/dL 01/06/2017 Lipid Ord30 CHOL 223 mg/dL 01/06/2017 Lipid Ord30 HDL 44.0 mg/dl 01/06/2017 Lipid Ord30 TRIG 292 mg/dL 01/06/2017 Lipid Ord30 LDL 121 mg/dL 01/06/2017 Lipid Ord30 C/HDL 5.1 Ratio 01/06/2017 Tsh Ord6 hTSH II 0.99 uIU/mL 01/06/2017 Free T4 Kvg144 FREE T4 0.96 ng/dL 01/06/2017 Cbc With [...] 29.6 pg 01/06/2017 Cbc With Differential Ord2 Wilson% 9.2 % 01/06/2017 Cbc With Differential Ord2 Eos% 2.2 % 01/06/2017 Cbc With Differential Ord2 MCHC 33.3 pg 01/06/2017 Cbc With Differential Ord2 Baso% 0.5 % 01/06/2017 Cbc With Differential Ord2 PLT 215 K/ul 01/06/2017 Cbc With Differential Ord2 Neut ABS# 3.72 K/ul 01/06/2017 Cbc With Differential Ord2 RDW 14.6 % 01/06/2017 Cbc With Differential Ord2 Lymph ABS# 1.85 K/ul 01/06/2017 Cbc With Differential Ord2 Wilson ABS# 0.6 K/ul 01/06/2017 Cbc With Differential Ord2 Eos ABS# 0.1 K/ul 01/06/2017 Cbc With Differential Ord2 Baso ABS# 0.0 K/ul 01/06/2017 Vitamin D 25 Oh Gvw0964 VITAMIN D, 25 HYDROXY 35.10 ng/mL 01/06/2017 Comp Metabolic Rek092 NA 140 mEq/L 01/06/2017 Comp Metabolic Tzo706 K 4.3 mEq/L 01/06/2017 Comp Metabolic Ucc957 CL 103 mEq/L 01/06/2017 Comp Metabolic Drf539 CO2 29.0 mEq/L 01/06/2017 Comp Metabolic Itv075 ANION GAP 12 01/06/2017 Comp Metabolic Amp470 GLUCOSE 86 mg/dL 01/06/2017 Comp Metabolic Gru322 Creat 0.8 mg/dL 01/06/2017 Comp Metabolic Nbo149 eGFR 82 ml/min/1.73m2 01/06/2017 Comp Metabolic Aex851 BUN 19 mg/dL 01/06/2017 Comp Metabolic Mtk797 B/C Ratio 25.3 Ratio 01/06/2017 Comp Metabolic Mcw753 CALCIUM 9.6 mg/dL 01/06/2017 Comp Metabolic Sqx244 ALK PHOS 77 U/L 01/06/2017 Comp Metabolic Opl013 AST(SGOT) 16 U/L 01/06/2017 Comp Metabolic Xyr869 ALT(SGPT) 18 U/L 01/06/2017 Comp Metabolic Imo591 BILI T 0.4 mg/dL 01/06/2017 Comp Metabolic Kat248 ALBUMIN 4.1 g/dL 01/06/2017 Comp Metabolic Him856 TPRO 6.7 g/dL 01/06/2017 Comp Metabolic Tam701 GLOB 2.6 g/dL 01/06/2017 Comp Metabolic Mri112 A/G Ratio 1.6 Ratio 01/06/2017 Comp Metabolic Iaa501 Osmo 281 mOsmo 01/06/2017 Vitamin D 25 Oh Eoj1350 VITAMIN D, 25 HYDROXY 42.77 ng/mL 07/09/2016 Free T4 Ccz524 FREE T4 1.23 ng/dL 07/08/2016 Comp Metabolic Jzv431 NA 136 mEq/L 07/08/2016 Comp Metabolic Mwz485 K 4.1 mEq/L 07/08/2016 Comp Metabolic Wfz693 CL 103 mEq/L 07/08/2016 Comp Metabolic Nqv064 CO2 26.0 mEq/L 07/08/2016 Comp Metabolic Twn352 ANION GAP 11 07/08/2016 Comp Metabolic Wsk423 GLUCOSE 83 mg/dL 07/08/2016 Comp Metabolic Ivg762 Creat 0.8 mg/dL 07/08/2016 Comp Metabolic Hpi016 eGFR 80 ml/min/1.73m2 07/08/2016 Comp Metabolic Dbg146 BUN 22 mg/dL 07/08/2016 Comp Metabolic Wwa109 B/C Ratio 28.9 Ratio 07/08/2016 Comp Metabolic Nmi428 CALCIUM 9.8 mg/dL 07/08/2016 Comp Metabolic Dry578 ALK PHOS 75 U/L 07/08/2016 Comp Metabolic Hvx998 AST(SGOT) 14 U/L 07/08/2016 Comp Metabolic Hli256 ALT(SGPT) 15 U/L 07/08/2016 Comp Metabolic Mfj171 BILI T 0.4 mg/dL 07/08/2016 Comp Metabolic Shf585 ALBUMIN 4.1 g/dL 07/08/2016 Comp Metabolic Bsp460 TPRO 6.6 g/dL 07/08/2016 Comp Metabolic Qeo473 GLOB 2.5 g/dL 07/08/2016 Comp Metabolic Swg903 A/G Ratio 1.7 Ratio 07/08/2016 Comp Metabolic Yvg311 Osmo 274 mOsmo 07/08/2016 %Hba1C Jny242 % HbA1c 05462- 6 5.4 % 07/08/2016 %Hba1C Rqt904 Gluc Ave 108 mg/dL 07/08/2016 Cbc With [...] 88.0 fl 07/08/2016 Cbc With Differential Ord2 Wilson% 10.1 % 07/08/2016 Cbc With Differential Ord2 [...] 1.89 K/ul 07/08/2016 Cbc With Differential Ord2 Wilson ABS# 0.7 K/ul 07/08/2016 Cbc With Differential Ord2 Eos ABS# 0.2 K/ul 07/08/2016 Cbc With Differential Ord2 Baso ABS# 0.0 K/ul 07/08/2016 Tsh Ord6 hTSH II 0.21 uIU/mL 07/08/2016 Lipid Ord30 CHOL 210 mg/dL 07/08/2016 Lipid Ord30 HDL 41.0 mg/dl 07/08/2016 Lipid Ord30 TRIG 257 mg/dL 07/08/2016 Lipid Ord30 LDL 118 mg/dL 07/08/2016 Lipid Ord30 C/HDL 5.1 Ratio 07/08/2016 Vitamin D 25 Oh Icp0321 VITAMIN D, 25 HYDROXY 34.38 ng/mL 03/10/2016 %Hba1C Jvi619 % HbA1c 36644- 6 5.3 % 03/09/2016 %Hba1C Rqx661 Gluc Ave 105 mg/dL 03/09/2016 Comp Metabolic Sgw774 NA 137 mEq/L 03/09/2016 Comp Metabolic Kuc949 K 4.5 mEq/L 03/09/2016 Comp Metabolic Crq979 CL 104 mEq/L 03/09/2016 Comp Metabolic Dmm137 CO2 27.0 mEq/L 03/09/2016 Comp Metabolic Uex964 ANION GAP 11 03/09/2016 Comp Metabolic Hkl513 GLUCOSE 86 mg/dL 03/09/2016 Comp Metabolic Ikh356 Creat 0.8 mg/dL 03/09/2016 Comp Metabolic Iuy942 eGFR 81 ml/min/1.73m2 03/09/2016 Comp Metabolic Bxy604 BUN 23 mg/dL 03/09/2016 Comp Metabolic Mhr373 B/C Ratio 30.3 Ratio 03/09/2016 Comp Metabolic Uxt891 CALCIUM 9.4 mg/dL 03/09/2016 Comp Metabolic Usq393 ALK PHOS 69 U/L 03/09/2016 Comp Metabolic Uxt102 AST(SGOT) 14 U/L 03/09/2016 Comp Metabolic Lhc073 ALT(SGPT) 14 U/L 03/09/2016 Comp Metabolic Jpm139 BILI T 0.4 mg/dL 03/09/2016 Comp Metabolic Ipk482 ALBUMIN 4.1 g/dL 03/09/2016 Comp Metabolic Ytz970 TPRO 6.6 g/dL 03/09/2016 Comp Metabolic Ypm337 GLOB 2.5 g/dL 03/09/2016 Comp Metabolic Doe166 A/G Ratio 1.6 Ratio 03/09/2016 Comp Metabolic Nqp603 Osmo 277 mOsmo 03/09/2016 Tsh Ord6 hTSH [...] 86.0 fl 03/09/2016 Cbc With Differential Ord2 MCH 28.9 pg 03/09/2016 Cbc With Differential Ord2 Wilson% 11.1 % 03/09/2016 Cbc With Differential Ord2 MCHC 33.7 pg 03/09/2016 Cbc With Differential Ord2 Eos% 1.7 % 03/09/2016 Cbc With Differential Ord2 Baso% 0.2 % 03/09/2016 Cbc With Differential Ord2 PLT 204 K/ul 03/09/2016 Cbc With Differential Ord2 Neut ABS# 4.99 K/ul 03/09/2016 Cbc With Differential Ord2 RDW 14.5 % 03/09/2016 Cbc With Differential Ord2 Lymph ABS# 2.16 K/ul 03/09/2016 Cbc With Differential Ord2 Wilson ABS# 0.9 K/ul 03/09/2016 Cbc With Differential Ord2 Eos ABS# 0.1 K/ul 03/09/2016 Cbc With Differential Ord2 Baso ABS# 0.0 K/ul 03/09/2016 Lipid Ord30 CHOL 283 mg/dL 03/09/2016 Lipid Ord30 HDL 40.0 mg/dl 03/09/2016 Lipid Ord30 TRIG 271 mg/dL 03/09/2016 Lipid Ord30 LDL 189 mg/dL 03/09/2016 Lipid Ord30 C/HDL 7.1 Ratio 03/09/2016 Comp Metabolic Pqg268 NA 137 mEq/L 09/15/2015 Comp Metabolic Smd812 K 4.4 mEq/L 09/15/2015 Comp Metabolic Jks057 CL 101 mEq/L 09/15/2015 Comp Metabolic Drc547 CO2 28.0 mEq/L 09/15/2015 Comp Metabolic Bjv508 ANION GAP 12 09/15/2015 Comp Metabolic Dyv446 GLUCOSE 89 mg/dL 09/15/2015 Comp Metabolic Uxv452 Creat 0.8 mg/dL 09/15/2015 Comp Metabolic Wdx469 eGFR 73 ml/min/1.73m2 09/15/2015 Comp Metabolic Icc965 BUN 20 mg/dL 09/15/2015 Comp Metabolic Jru602 B/C Ratio 24.1 Ratio 09/15/2015 Comp Metabolic Sbb862 CALCIUM 10.1 mg/dL 09/15/2015 Comp Metabolic Ueh605 ALK PHOS 72 U/L 09/15/2015 Comp Metabolic Djw686 AST(SGOT) 16 U/L 09/15/2015 Comp Metabolic Awa255 ALT(SGPT) 15 U/L 09/15/2015 Comp Metabolic Oyo768 BILI T 0.5 mg/dL 09/15/2015 Comp Metabolic Xjj175 ALBUMIN 4.4 g/dL 09/15/2015 Comp Metabolic Bkp094 TPRO 7.0 g/dL 09/15/2015 Comp Metabolic Wul084 GLOB 2.6 g/dL 09/15/2015 Comp Metabolic Bwa896 A/G Ratio 1.7 Ratio 09/15/2015 Comp Metabolic Qzd915 Osmo 276 mOsmo 09/15/2015 Tsh Ord6 hTSH II 2.99 uIU/mL 09/15/2015 Vitamin D 25 Oh Jjl1749 VITAMIN D, 25 HYDROXY 30.19 ng/mL 09/15/2015 [...] Lipid Ord30 C/HDL 7.0 Ratio 09/15/2015 %Hba1C Tbs523 % HbA1c 59476- 6 5.2 % 09/15/2015 %Hba1C Agj589 Gluc Ave 103 mg/dL 09/15/2015 Review of Systems System Result Effective Dates Constitutional No recent illness 07/20/2018 Constitutional No [...] clear 07/20/2018 None Full Exam - General 1995 Ears/Nose/Throat oral cavity/pharynx/larynx Overall: no masses 07/20/2018 [...] Formatting Model/CDA Sections, Assigned to/Margarita Brock CPT-4: [id number] 07/27/2018 FLU VAC NO PRSV 4 SHANNON 3 YRS+ CPT-4: 32190 08/04/2017 ADMIN INFLUENZA VIRUS VAC CPT-4: G0008 08/04/2017 TRIAMCINOLONE ACET INJ NOS CPT-4: J3301 01/27/2017 THER/PROPH/DIAG INJ SC/IM CPT-4: 31654 01/27/2017 ADMIN INFLUENZA VIRUS VAC CPT-4: G0008 07/15/2016 FLU VACC 4 SHANNON 3 YRS PLUS IM SNOMED CT: [id number] CPT-4: 26012 07/15/2016 Vital Signs Date Vital 07/20/2018 Blood Pressure 1: 116/74 Code: 8480-6 BMI: 34.5 Code: 67744-6 Heart Rate 1: 52 bpm Height: 5'4" SpO2: 99% Weight: 204 lbs 04/14/2018 Blood Pressure 1: 128/76 Code: 8480-6 BMI: 34.5 Code: 31809-4 Heart Rate 1: 67 bpm Height: 5'4" SpO2: 95% Weight: 204 lbs 02/06/2018 Blood Pressure 1: 142/78 Code: 8480-6 BMI: 35.2 Code: 18050-6 Heart Rate 1: 58 bpm Height: 5'4" SpO2: 98% Weight: 208 lbs 01/12/2018 Blood Pressure 1: 132/82 Code: 8480-6 BMI: 34.8 Code: 17625-0 Height: 5'4" Weight: 206 lbs 08/04/2017 Blood Pressure 1: 140/82 Code: 8480-6 BMI: 31.9 Code: 90885-2 Heart Rate 1: 58 bpm Height: 5'4" SpO2: 99% Weight: 188 lbs 8 oz 07/19/2017 Blood Pressure 1: 136/76 Code: 8480-6 BMI: 32.0 Code: 29913-5 Heart Rate 1: 67 bpm Height: 5'4" SpO2: 97% Weight: 189 lbs 8 oz 05/05/2017 Blood Pressure 1: 142/80 Code: 8480-6 BMI: 32.4 Code: 87610-1 Heart Rate 1: 54 bpm Height: 5'4" SpO2: 98% Weight: 191 lbs 8 oz 01/27/2017 Blood Pressure 1: 132/82 Code: 8480-6 BMI: 34.1 Code: 84920-8 Heart Rate 1: 55 bpm Height: 5'4" SpO2: 99% Weight: 202 lbs 07/15/2016 Blood Pressure 1: 128/72 Code: 8480-6 BMI: 34.4 Code: 66830-9 Heart Rate 1: 50 bpm Height: 5'4" SpO2: 98% Weight: 203 lbs 8 oz 03/16/2016 Blood Pressure 1: 118/78 Code: 8480-6 BMI: 34.5 Code: 18427-7 Heart Rate 1: 55 bpm Height: 5'4" SpO2: 98% Weight: 204 lbs 09/15/2015 Blood Pressure 1: 134/72 Code: 8480-6 BMI: 34.6 Code: 79122-5 Heart Rate 1: 52 bpm Height: 5'4" SpO2: 99% Weight: 205 lbs 03/17/2015 Blood Pressure 1: 128/74 Code: 8480-6 BMI: 35.8 Code: 91634-4 Heart Rate 1: 59 bpm Height: 5'4" SpO2: 98% Weight: 212 lbs Functional Status No Functional Status data History of Present Illness Symptom Name Status Result Effective Date Notes vaccination against influenza Location deltoid- Lt 07/27/2018 [...] data Encounters Encounter Performer Location Codes Date ([id number]) 64906 EST. PATIENT, LEVEL IV Diagnosis: Type 2 diabetes mellitus with diabetic polyneuropathy[ICD10: E11.42] Diagnosis: Mixed hyperlipidemia[ICD10: E78.2] Diagnosis: Essential (primary) hypertension[ICD10: I10] Diagnosis: Vitamin D deficiency, unspecified[ICD10: E55.9] Diagnosis: Hypothyroidism, unspecified[ICD10: E03.9] Delmis Bermudez MD, [facility] CPT-4: 99060 07/20/2018 ([id number]) 26661 EST. PATIENT, LEVEL IV Diagnosis: Essential (primary) hypertension[ICD10: I10] Diagnosis: Hypothyroidism, unspecified[ICD10: E03.9] Diagnosis: Mixed hyperlipidemia[ICD10: E78.2] Delmis Bermudez MD, [facility] CPT- 4: 59514 04/14/2018 ([id number]) 63213 EST. PATIENT, LEVEL III Diagnosis: Type 2 diabetes mellitus with diabetic polyneuropathy[ICD10: E11.42] Delmis Bermudez MD, [facility] CPT-4: 30423 02/06/2018 [id number]) 32602 EST. PATIENT, LEVEL IV Diagnosis: Mixed hyperlipidemia[ICD10: E78.2] Diagnosis: Hypothyroidism, unspecified[ICD10: E03.9] Diagnosis: Type 2 diabetes mellitus without complications[ICD10: E11.9] Delmis Bermudez MD, [facility] CPT-4: 41080 01/12/2018 ([id number]) 26448 EST. PATIENT, LEVEL IV Diagnosis: Essential (primary) hypertension[ICD10: I10] Diagnosis: Mixed hyperlipidemia[ICD10: E78.2] Diagnosis: Hypothyroidism, unspecified[ICD10: E03.9] Diagnosis: Type 2 diabetes mellitus without complications[ICD10: E11.9] Diagnosis: Encounter for immunization[ICD10: Z23] Delmis Bermudez MD, [facility] CPT-4: 16367 08/04/2017 ([id number]) 93854 EST. PATIENT, LEVEL III Diagnosis: Diverticulitis of large intestine without perforation or abscess without bleeding[ICD10: K57.32] Delmis Bermudez MD, [facility] CPT-4: 19099 07/19/2017 ([id number]) 63968 EST. PATIENT, LEVEL III Diagnosis: Type 2 diabetes mellitus with diabetic polyneuropathy[ICD10: E11.42] Delmis Bermudez MD, [facility] CPT-4: 04788 05/05/2017 ([id number]) 81186 EST. PATIENT, LEVEL IV Diagnosis: Essential (primary) hypertension[ICD10: I10] Diagnosis: Type 2 diabetes mellitus without complications[ICD10: E11.9] Diagnosis: Mixed hyperlipidemia[ICD10: E78.2] Diagnosis: Allergic rhinitis due to pollen[ICD10: J30.1] Ria Bermudez MD, [facility] CPT-4: 72246 01/27/2017 ([id number]) 79518 EST. PATIENT, LEVEL IV Diagnosis: Type 2 diabetes mellitus without complications[ICD10: E11.9] Diagnosis: Essential (primary) hypertension[ICD10: I10] Diagnosis: Mixed hyperlipidemia[ICD10: E78.2] Ria Bermudez MD, [facility] CPT- 4: 99174 07/15/2016 ([id number]) 24674 EST. PATIENT, LEVEL IV Diagnosis: Type 2 diabetes mellitus without complications[ICD10: E11.9] Diagnosis: Polyneuropathy, unspecified[ICD10: G62.9] Diagnosis: Mixed hyperlipidemia[ICD10: E78.2] Ria Bermudez MD, [facility] CPT- 4: 00184 03/16/2016 ([id number]) 91802 EST. PATIENT, LEVEL IV Diagnosis: Type 2 diabetes mellitus without complications[ICD10: E11.9] Diagnosis: Essential (primary) hypertension[ICD10: I10] Diagnosis: Vitamin D deficiency, unspecified[ICD10: E55.9] Diagnosis: Mixed hyperlipidemia[ICD10: E78.2] Ria Bermudez MD, [facility] CPT- 4: 49862 09/15/2015 ([id number]) OFFICE VISIT, NEW - LEVEL 4 Diagnosis: ESSENTIAL HYPERTENSION[ICD9: 401.9] Diagnosis: Diabetes mellitus type 2, controlled[ICD9: 250.00] Diagnosis: Peripheral neuropathy[ICD9: 356.9] Delmis Bermudez MD, [facility] CPT- 4: 80543 03/17/2015 Plan of Care Planned Activity Notes Codes Status Date Patient Education: Patient Medication Summary Completed 08/15/2018 Care Plan: [facility]HY[facility] 99582-7 Pending 08/15/2018 Appointment: Injection 07/27/2018 Patient Education: Patient [...] control. 07/20/2018 Appointment: Delmis Her WPtel: [phone] [phone] (15 min) Moderate 07/20/2018 Patient Education: Patient [...] start it 04/14/2018 Appointment: Delmis Her WPtel: [facility] [phone] [...] [phone] (30 min) Complex 01/12/2018 Patient Education: Patient [...] to medications. 08/04/2017 Appointment: Delmis Her WPtel: [phone] [phone] (30 min) Complex 08/04/2017 Patient Education: Patient Medication Summary Completed 08/04/2017 Patient Education: Obesity Completed 08/04/2017 Care Plan: %Hba1C LOINC : 39077-1 Pending 08/04/2017 Visit Plan: Diverticulitis - rx for antibiotic sent to pt's pharmacy - pt advised to avoid seeds, nuts, popcorn, or any other food which has been proven to upset the pt's stomach. Call if symptoms do not improve or if any worse and we will check labs and CT scan. Patient verbalized understanding of plan. 07/19/2017 Appointment: Delmis Her WPtel: [phone] (30 min) Complex 07/19/2017 Patient Education: Patient Medication Summary Completed 07/19/2017 Patient Education: Obesity Completed 07/19/2017 Visit Plan: Diabetic peripheral neuropathy - diabetes paperwork completed today in the office-patient does want to start medication-RX for gabapentin sent electronically and provided and instructed on use. Patient verbalized understanding of plan. 05/05/2017 Appointment: Delmis Her WPtel: [address] [place], [place] [phone] (30 min) Complex 05/05/2017 Patient Education: Patient Medication Summary Completed 05/05/2017 Patient Education: Obesity Completed 05/05/2017 Appointment: Delmis Her WPtel: [phone] [facility] - Annual Wellness Visit 01/28/2017 Visit [...] of kenalog 01/27/2017 Appointment: [phone] (15 min) Moderate 01/27/2017 Patient Education: Patient Medication Summary Completed 01/27/2017 Patient Education: Obesity Completed 01/27/2017 Appointment: [phone] (15 min) Moderate 01/11/2017 Visit Plan: Hypertension [...] liver response to me dications. 07/15/2016 Appointment: [phone] [place] (15 min) Moderate 07/15/2016 Patient Education: Patient [...] this time. 03/16/2016 Appointment: Ria Bermudez WPtel[facility] ([facility] min) Moderate 03/16/2016 Patient Education: Patient [...] are starting to become less controlled. Peripheral yjtnnltayx-WG-dnftqfig foot exam today in the office and [...] are starting to become less controlled. Peripheral zdcweijltr-FA-izcadrkt foot exam today in the office and [...] are starting to become less controlled. Peripheral ornkgyishv-ZJ-yfmpvvul foot exam today in the office and paperwork completed for diabetic shoes-see scanned document 03/17/2015 Appointment: [facility] eBrmude[facility]el[phone] [place] ([place] New Patient 03/17/2015 Patient [...] are starting to become less controlled. Peripheral wwtvjogjkw-FY-jkgiorns foot exam today in the office and [...] are starting to become less controlled. Peripheral kqtdycezwo-GL-hyjezeoo foot exam today in the office and [...] are starting to become less controlled. Peripheral gbwztlvtor-TJ-hkkicuha foot exam today in the office and [...] daily. Allergies - shot of kenalog . Diabetic peripheral neuropathy - diabetes paperwork [...]
[2019-04-04 07:23] LABS: BILIRUBIN,URINE NEGATIVE (NEGATIVE); CLARITY,URINE CLEAR; COLOR,URINE YELLOW; GLUCOSE, URINE (UA) NEGATIVE (NEGATIVE); KETONES,URINE NEGATIVE (NEGATIVE); LEUKOCYTE ESTERASE ,URINE 3+ (NEGATIVE); NITRITE,URINE NEGATIVE (NEGATIVE); PH,URINE 7 (5-9); PROTEIN,URINE NEGATIVE (NEGATIVE); UROBILINOGEN,URINE NORMAL (NORMAL)
--- OUTSIDE RECORDS SUMMARY | 2019-04-04 07:24 | XMS REPORT | CCD ---
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 [employer] Name Role Phone PP Unavailable CCM Unavailable Summary Purpose Interface Exchange Insurance Providers Payer name Policy type / Coverage type Covered constitution party ID Effective Begin Date Effective End Date WPS Medicare Part B Medicare Part B [id number] Unknown Unknown [facility] Medicare Part B [id number] Unknown Unknown Family history Son Diagnosis Age At [...] Unknown Retired 03/17/[address]: 420591423 Never smoker 03/17/[address]: 332115423 Never smoker 03/17/2015 Allergies, Adverse Reactions, Alerts Substance Reaction Codes Entered Date Inactivated Date Status [id number] REDUCTASE INHIBITORS myalgias Unknown 03/16/2016 No Inactive Date Active Past Medical History Illness Codes Condition Status Onset Date Resolved Date Type 2 diabetes mellitus without complications ICD-9: 250.00 ICD-10: E11.9 Active 03/16/2015 Unknown Hypothryroidism Unknown Active 08/04/2017 Unknown Encounter for immunization ICD-9: V04.81 ICD-10: Z23 Active 07/14/2016 Unknown Essential (primary) hypertension ICD-9: 401.1 ICD-10: I10 Active 01/27/2017 Unknown Hypothyroidism, unspecified ICD-9: 244.9 ICD-10: E03.9 Active 08/04/2017 Unknown Mixed hyperlipidemia ICD- 9: 272.2 ICD-10: E78.2 Active 07/14/2016 Unknown Diverticulitis of large intestine without perforation or abscess without bleeding ICD-9: 562.11 ICD-10: K57.32 Active 07/19/2017 Unknown Type 2 diabetes mellitus with diabetic polyneuropathy ICD-9: 250.60 ICD-10: E11.42 Active 05/05/2017 Unknown Allergic rhinitis due to pollen ICD-9: 477.0 ICD-10: J30.1 Active 01/27/2017 Unknown Essential (primary) hypertension ICD-9: 401.9 ICD-10: I10 Active 03/16/2015 Unknown Polyneuropathy, unspecified ICD-9: 356.9 ICD-10: G62.9 Active 03/16/2015 Unknown Encounter for screening mammogram for malignant neoplasm of breast ICD-9: V76.12 ICD-10: Z12.31 Active 02/19/2016 Unknown Vitamin D deficiency, unspecified ICD-9: 268.9 ICD-10: E55.9 Active 09/14/2015 Unknown Diabetes Unknown Active 03/17/2015 Unknown Hypertension Unknown Active 03/17/2015 Unknown Diabetes mellitus type 2, controlled ICD-9: 250.00 Active 03/16/2015 Unknown ESSENTIAL HYPERTENSION ICD-9: 401.9 Active 03/16/2015 Unknown Peripheral neuropathy ICD- 9: 356.9 Active 03/16/2015 Unknown Problems Condition Codes Effective Dates Condition Status Type 2 diabetes mellitus without complications ICD-9: 250.00 ICD-10: E11.9 03/16/2015 Active Hypothryroidism Unknown 08/04/2017 Active Encounter for immunization ICD-9: V04.81 ICD-10: Z23 07/14/2016 Active Essential (primary) hypertension ICD-9: 401.1 ICD-10: I10 01/27/2017 Active Hypothyroidism, unspecified ICD-9: 244.9 ICD-10: E03.9 08/04/2017 Active Mixed hyperlipidemia ICD- 9: 272.2 ICD-10: E78.2 07/14/2016 Active Diverticulitis of large intestine without perforation or abscess without bleeding ICD-9: 562.11 ICD-10: K57.32 07/19/2017 Active Type 2 diabetes mellitus with diabetic polyneuropathy ICD-9: 250.60 ICD-10: E11.42 05/05/2017 Active Allergic rhinitis due to pollen ICD-9: 477.0 ICD-10: J30.1 01/27/2017 Active Essential (primary) hypertension ICD-9: 401.9 ICD-10: I10 03/16/2015 Active Polyneuropathy, unspecified ICD-9: 356.9 ICD-10: G62.9 03/16/2015 Active Encounter for screening mammogram for malignant neoplasm of breast ICD-9: V76.12 ICD-10: Z12.31 02/19/2016 Active Vitamin D deficiency, unspecified ICD-9: 268.9 ICD-10: E55.9 09/14/2015 Active Diabetes Unknown 03/17/2015 Active Hypertension Unknown 03/17/2015 Active Diabetes mellitus type 2, controlled ICD-9: 250.00 03/16/2015 Active ESSENTIAL HYPERTENSION ICD-9: 401.9 03/16/2015 Active Peripheral neuropathy ICD- 9: 356.9 03/16/2015 Active Medications Medication Codes Instructions Start Date Stop Date Status Fill Instructions levothyroxine 100 mcg tablet RxNorm: 353007 TAKE ONE TABLET BY MOUTH DAILY 10/28/2017 05/25/2018 Active indapamide 1.25 mg tablet RxNorm: 317749 TAKE ONE TABLET BY MOUTH DAILY 09/09/2017 09/03/2018 Active levothyroxine 100 mcg tablet RxNorm: 526906 1 Tablet(s) PO daily TAKE ONE TABLET BY MOUTH DAILY 08/04/2017 10/27/2017 Inactive Flagyl 500 mg tablet RxNorm: 844711 1 Tablet(s) PO TID 07/19/2017 07/28/2017 Inactive enalapril maleate 5 mg tablet RxNorm: 577746 TAKE ONE TABLET BY MOUTH DAILY 06/30/2017 12/26/2017 Active Zocor 20 mg tablet RxNorm: 094282 TAKE ONE TABLET BY MOUTH DAILY 05/26/2017 10/22/2017 Inactive indapamide 1.25 mg tablet RxNorm: 061498 TAKE ONE TABLET BY MOUTH DAILY 05/26/2017 09/08/2017 Inactive gabapentin 100 mg capsule RxNorm: 565243 1 Capsule(s) PO QHS 05/05/2017 09/01/2017 Inactive Kenalog 40 mg/mL suspension for injection RxNorm: 1638700 1 Milliliter(s) Inj 01/27/2017 01/27/2017 Inactive levothyroxine 112 mcg tablet RxNorm: 239513 TAKE ONE TABLET BY MOUTH DAILY 01/17/2017 08/03/2017 Inactive Zocor 20 mg tablet RxNorm: 158325 TAKE ONE TABLET BY MOUTH DAILY 11/08/2016 05/06/2017 Inactive indapamide 1.25 mg tablet RxNorm: 321073 TAKE ONE TABLET BY MOUTH DAILY 11/08/2016 05/06/2017 Inactive enalapril maleate 5 mg tablet RxNorm: 984193 TAKE ONE TABLET BY MOUTH DAILY 09/01/2016 05/28/2017 Inactive indapamide 1.25 mg tablet RxNorm: 504135 TAKE ONE TABLET BY MOUTH DAILY 08/02/2016 10/30/2016 Inactive Vitamin D2 50,000 unit capsule RxNorm: 883740 1 Capsule(s) PO QW 07/15/2016 04/10/2017 Inactive indapamide 1.25 mg tablet RxNorm: 972497 TAKE ONE TABLET BY MOUTH DAILY 04/29/2016 07/27/2016 Inactive Vitamin D2 50,000 unit capsule RxNorm: 656803 1 Capsule(s) PO QW 03/16/2016 07/14/2016 Inactive Zocor 20 mg tablet RxNorm: 614607 1 Tablet(s) PO daily 03/16/2016 10/11/2016 Inactive levothyroxine 112 mcg tablet RxNorm: 826933 TAKE ONE TABLET BY MOUTH DAILY 01/07/2016 12/31/2016 Inactive indapamide 1.25 mg tablet RxNorm: 415425 1 Tablet(s) PO daily 12/03/2015 03/31/2016 Inactive Vitamin D2 50,000 unit capsule RxNorm: 845757 1 Capsule(s) PO QW 09/26/2015 09/25/2015 Inactive Lipitor 10 mg tablet RxNorm: 763908 1 Tablet(s) PO daily 09/26/2015 03/15/2016 Inactive Vitamin D2 50,000 unit capsule RxNorm: 343919 1 Capsule(s) PO QW 09/26/2015 03/15/2016 Inactive enalapril maleate 5 mg tablet RxNorm: 294270 1 Tablet(s) PO daily 08/06/2015 07/30/2016 Inactive levothyroxine 112 mcg tablet RxNorm: 988702 1 Tablet(s) PO daily 04/04/2015 10/30/2015 Inactive Vitamin D3 2,000 unit capsule RxNorm: 741542 1 Capsule(s) PO daily No Start Date Active aspirin 500 mg tablet RxNorm: 572353 1 Tablet(s) PO daily No Start Date Active Co Q-10 oral RxNorm: 54842 oral No Start Date Active Lipitor 20 mg tablet RxNorm: 227948 1 Tablet(s) PO daily No Start Date 09/14/2015 Inactive indapamide 1.25 mg tablet RxNorm: 462189 1 Tablet(s) PO daily No Start Date 12/02/2015 Inactive enalapril maleate 5 mg tablet RxNorm: 351682 1 Tablet(s) PO daily No Start Date 08/05/2015 Inactive levothyroxine 112 mcg tablet RxNorm: 170592 1 Tablet(s) PO daily No Start Date 04/03/2015 Inactive Medication Administered Medication Codes Instructions Start Date Status Kenalog 40 mg/mL suspension for injection RxNorm: 5082818 1Milliliter 01/27/2017 No longer Active Immunizations Vaccine Codes Date Status Influenza CVX: 141 08/04/2017 completed Influenza CVX: 141 07/15/2016 completed Pneumococcal CVX: 133 07/25/2015 completed Zoster CVX: 121 07/25/2015 completed Assessments Condition Codes Effective Dates Type 2 diabetes mellitus without complications ICD-10: E11.9 ICD-9: 250.00 08/05/2017 Hypothyroidism, unspecified ICD-10: E03.9 ICD-9: 244.9 08/04/2017 Essential (primary) hypertension ICD-10: I10 ICD-9: 401.1 08/04/2017 Encounter for immunization ICD-10: Z23 ICD-9: V04.81 08/04/2017 Mixed hyperlipidemia ICD-10: E78.2 ICD-9: 272.2 08/04/2017 Diverticulitis of large intestine without perforation or abscess without bleeding ICD-10: K57.32 ICD-9: 562.11 07/19/2017 Type 2 diabetes mellitus with diabetic polyneuropathy ICD-10: E11.42 ICD-9: 250.60 05/05/2017 Allergic rhinitis due to pollen ICD-10: J30.1 ICD-9: 477.0 01/27/2017 Essential (primary) hypertension ICD-10: I10 ICD-9: 401.9 07/15/2016 Polyneuropathy, unspecified ICD-10: G62.9 ICD-9: 356.9 03/16/2016 Encounter for screening mammogram for malignant neoplasm of breast ICD-10: Z12.31 ICD-9: V76.12 02/20/2016 Vitamin D deficiency, unspecified ICD-10: E55.9 ICD-9: 268.9 09/15/2015 ESSENTIAL HYPERTENSION ICD-9: 401.9 03/17/2015 Peripheral neuropathy ICD-9: 356.9 03/17/2015 Diabetes mellitus type 2, controlled ICD-9: 250.00 03/17/2015 Reason For Visit Reason For Visit Effective Dates Notes diabetes mellitus 08/04/2017 abdominal pain 07/19/2017 diabetes mellitus 05/05/2017 hypertension 01/27/2017 hypertension 07/15/2016 hypertension 03/16/2016 fatigue 09/15/2015 diabetes mellitus 03/17/2015 Results Observation Observation Code Item Item Code Result Date Free T4 [id number] FREE T4 1.40 ng/dL 08/05/2017 %Hba1C Chx678 % HbA1c 64951- 6 5.0 % 08/05/2017 %Hba1C Zwh448 Gluc Ave 97 mg/dL 08/05/2017 Cbc With [...] 29.5 pg 08/03/2017 Cbc With Differential Ord2 [place]% 9.3 % 08/03/2017 Cbc With Differential Ord2 Eos% 1.7 % 08/03/2017 Cbc With Differential Ord2 MCHC 33.7 pg 08/03/2017 Cbc With Differential Ord2 PLT 237 K/ul 08/03/2017 Cbc With Differential Ord2 Baso% 0.3 % 08/03/2017 Cbc With Differential Ord2 RDW 14.1 % 08/03/2017 Cbc With Differential Ord2 Neut ABS# 4.21 K/ul 08/03/2017 Cbc With Differential Ord2 Lymph ABS# 2.10 K/ul 08/03/2017 Cbc With Differential Ord2 [place] ABS# 0.7 K/ul 08/03/2017 Cbc With Differential Ord2 Eos ABS# 0.1 K/ul 08/03/2017 Cbc With Differential Ord2 Baso ABS# 0.0 K/ul 08/03/2017 Vitamin D 25 Oh Rya4190 VITAMIN D, 25 HYDROXY 52.73 ng/mL 08/03/2017 Lipid Ord30 CHOL 215 mg/dL 08/03/2017 Lipid Ord30 HDL 43.0 mg/dl 08/03/2017 Lipid Ord30 TRIG 278 mg/dL 08/03/2017 Lipid Ord30 LDL 116 mg/dL 08/03/2017 Lipid Ord30 C/HDL 5.0 Ratio 08/03/2017 Tsh Ord6 hTSH II 0.09 uIU/mL 08/03/2017 Comp Metabolic Hng021 NA 137 mEq/L 08/03/2017 Comp Metabolic Flk877 K 4.3 mEq/L 08/03/2017 Comp Metabolic Hak293 CL 102 mEq/L 08/03/2017 Comp Metabolic Frn377 CO2 24.0 mEq/L 08/03/2017 Comp Metabolic Div543 ANION GAP 15 08/03/2017 Comp Metabolic Fdu373 GLUCOSE 80 mg/dL 08/03/2017 Comp Metabolic Qik024 Creat 0.9 mg/dL 08/03/2017 Comp Metabolic Lqk017 eGFR 68 ml/min/1.73m2 08/03/2017 Comp Metabolic Wcw135 BUN 18 mg/dL 08/03/2017 Comp Metabolic Bgd242 B/C Ratio 20.5 Ratio 08/03/2017 Comp Metabolic Ttd897 CALCIUM 9.7 mg/dL 08/03/2017 Comp Metabolic Ejq522 ALK PHOS 68 U/L 08/03/2017 Comp Metabolic Niu202 AST(SGOT) 14 U/L 08/03/2017 Comp Metabolic Akl982 ALT(SGPT) 14 U/L 08/03/2017 Comp Metabolic Iib805 BILI T 0.6 mg/dL 08/03/2017 Comp Metabolic Ozc333 ALBUMIN 4.0 g/dL 08/03/2017 Comp Metabolic Eaa133 TPRO 6.4 g/dL 08/03/2017 Comp Metabolic Ocw861 GLOB 2.4 g/dL 08/03/2017 Comp Metabolic Nfc211 A/G Ratio 1.7 Ratio 08/03/2017 Comp Metabolic Vui122 Osmo 275 mOsmo 08/03/2017 %Hba1C Ods112 % HbA1c 84274- 6 5.1 % 01/06/2017 %Hba1C Xbh569 Gluc Ave 100 mg/dL 01/06/2017 Lipid Ord30 CHOL 223 mg/dL 01/06/2017 Lipid Ord30 HDL 44.0 mg/dl 01/06/2017 Lipid Ord30 TRIG 292 mg/dL 01/06/2017 Lipid Ord30 LDL 121 mg/dL 01/06/2017 Lipid Ord30 C/HDL 5.1 Ratio 01/06/2017 Tsh Ord6 hTSH II 0.99 uIU/mL 01/06/2017 Free T4 Xtv558 FREE T4 0.96 ng/dL 01/06/2017 Cbc With [...] 29.6 pg 01/06/2017 Cbc With Differential Ord2 [place]% 9.2 % 01/06/2017 Cbc With Differential Ord2 [...] 1.85 K/ul 01/06/2017 Cbc With Differential Ord2 [place] ABS# 0.6 K/ul 01/06/2017 Cbc With Differential Ord2 Eos ABS# 0.1 K/ul 01/06/2017 Cbc With Differential Ord2 Baso ABS# 0.0 K/ul 01/06/2017 Vitamin D 25 Oh Des4250 VITAMIN D, 25 HYDROXY 35.10 ng/mL 01/06/2017 Comp Metabolic Czc204 NA 140 mEq/L 01/06/2017 Comp Metabolic Tbu720 K 4.3 mEq/L 01/06/2017 Comp Metabolic Hiw823 CL 103 mEq/L 01/06/2017 Comp Metabolic Mkg269 CO2 29.0 mEq/L 01/06/2017 Comp Metabolic Zbd233 ANION GAP 12 01/06/2017 Comp Metabolic Okl596 GLUCOSE 86 mg/dL 01/06/2017 Comp Metabolic Mga943 Creat 0.8 mg/dL 01/06/2017 Comp Metabolic Waz132 eGFR 82 ml/min/1.73m2 01/06/2017 Comp Metabolic Geu245 BUN 19 mg/dL 01/06/2017 Comp Metabolic Rbo324 B/C Ratio 25.3 Ratio 01/06/2017 Comp Metabolic Ddf673 CALCIUM 9.6 mg/dL 01/06/2017 Comp Metabolic Awa652 ALK PHOS 77 U/L 01/06/2017 Comp Metabolic Tfq240 AST(SGOT) 16 U/L 01/06/2017 Comp Metabolic Nqp995 ALT(SGPT) 18 U/L 01/06/2017 Comp Metabolic Eww727 BILI T 0.4 mg/dL 01/06/2017 Comp Metabolic Dfy728 ALBUMIN 4.1 g/dL 01/06/2017 Comp Metabolic Ild124 TPRO 6.7 g/dL 01/06/2017 Comp Metabolic Ket682 GLOB 2.6 g/dL 01/06/2017 Comp Metabolic Mrn263 A/G Ratio 1.6 Ratio 01/06/2017 Comp Metabolic Fnd591 Osmo 281 mOsmo 01/06/2017 Vitamin D 25 Oh Zpn6225 VITAMIN D, 25 HYDROXY 42.77 ng/mL 07/09/2016 Free T4 Stk540 FREE T4 1.23 ng/dL 07/08/2016 Comp Metabolic Mcz853 NA 136 mEq/L 07/08/2016 Comp Metabolic Sas735 K 4.1 mEq/L 07/08/2016 Comp Metabolic Voz893 CL 103 mEq/L 07/08/2016 Comp Metabolic Okw037 CO2 26.0 mEq/L 07/08/2016 Comp Metabolic Cuj853 ANION GAP 11 07/08/2016 Comp Metabolic Omx693 GLUCOSE 83 mg/dL 07/08/2016 Comp Metabolic Enh205 Creat 0.8 mg/dL 07/08/2016 Comp Metabolic Mtf313 eGFR 80 ml/min/1.73m2 07/08/2016 Comp Metabolic Aib429 BUN 22 mg/dL 07/08/2016 Comp Metabolic Qvt162 B/C Ratio 28.9 Ratio 07/08/2016 Comp Metabolic Sey104 CALCIUM 9.8 mg/dL 07/08/2016 Comp Metabolic Iah380 ALK PHOS 75 U/L 07/08/2016 Comp Metabolic Cft728 AST(SGOT) 14 U/L 07/08/2016 Comp Metabolic Bkb853 ALT(SGPT) 15 U/L 07/08/2016 Comp Metabolic Qod900 BILI T 0.4 mg/dL 07/08/2016 Comp Metabolic Gum992 ALBUMIN 4.1 g/dL 07/08/2016 Comp Metabolic Ssb538 TPRO 6.6 g/dL 07/08/2016 Comp Metabolic Xle592 GLOB 2.5 g/dL 07/08/2016 Comp Metabolic Csa183 A/G Ratio 1.7 Ratio 07/08/2016 Comp Metabolic Fxv012 Osmo 274 mOsmo 07/08/2016 %Hba1C Okc381 % HbA1c 52117- 6 5.4 % 07/08/2016 %Hba1C Qqp349 Gluc Ave 108 mg/dL 07/08/2016 Cbc With [...] 88.0 fl 07/08/2016 Cbc With Differential Ord2 [place]% 10.1 % 07/08/2016 Cbc With Differential Ord2 [...] 1.89 K/ul 07/08/2016 Cbc With Differential Ord2 [place] ABS# 0.7 K/ul 07/08/2016 Cbc With Differential Ord2 Eos ABS# 0.2 K/ul 07/08/2016 Cbc With Differential Ord2 Baso ABS# 0.0 K/ul 07/08/2016 Tsh Ord6 hTSH II 0.21 uIU/mL 07/08/2016 Lipid Ord30 CHOL 210 mg/dL 07/08/2016 Lipid Ord30 HDL 41.0 mg/dl 07/08/2016 Lipid Ord30 TRIG 257 mg/dL 07/08/2016 Lipid Ord30 LDL 118 mg/dL 07/08/2016 Lipid Ord30 C/HDL 5.1 Ratio 07/08/2016 Vitamin D 25 Oh Vwp9757 VITAMIN D, 25 HYDROXY 34.38 ng/mL 03/10/2016 %Hba1C Jux317 % HbA1c 21909- 6 5.3 % 03/09/2016 %Hba1C Xqd315 Gluc Ave 105 mg/dL 03/09/2016 Comp Metabolic Qaf938 NA 137 mEq/L 03/09/2016 Comp Metabolic Gsl010 K 4.5 mEq/L 03/09/2016 Comp Metabolic Iia009 CL 104 mEq/L 03/09/2016 Comp Metabolic Pmw056 CO2 27.0 mEq/L 03/09/2016 Comp Metabolic Wis122 ANION GAP 11 03/09/2016 Comp Metabolic Jau902 GLUCOSE 86 mg/dL 03/09/2016 Comp Metabolic Qyf158 Creat 0.8 mg/dL 03/09/2016 Comp Metabolic Lcf861 eGFR 81 ml/min/1.73m2 03/09/2016 Comp Metabolic Ohi561 BUN 23 mg/dL 03/09/2016 Comp Metabolic Jvn933 B/C Ratio 30.3 Ratio 03/09/2016 Comp Metabolic Dnm162 CALCIUM 9.4 mg/dL 03/09/2016 Comp Metabolic Xll716 ALK PHOS 69 U/L 03/09/2016 Comp Metabolic Qkt517 AST(SGOT) 14 U/L 03/09/2016 Comp Metabolic Lom783 ALT(SGPT) 14 U/L 03/09/2016 Comp Metabolic Xaw914 BILI T 0.4 mg/dL 03/09/2016 Comp Metabolic Izl655 ALBUMIN 4.1 g/dL 03/09/2016 Comp Metabolic Jgu105 TPRO 6.6 g/dL 03/09/2016 Comp Metabolic Jyc747 GLOB 2.5 g/dL 03/09/2016 Comp Metabolic Tay190 A/G Ratio 1.6 Ratio 03/09/2016 Comp Metabolic Sju187 Osmo 277 mOsmo 03/09/2016 Tsh Ord6 hTSH [...] 26.3 % 03/09/2016 Cbc With Differential Ord2 [place]% 11.1 % 03/09/2016 Cbc With Differential Ord2 [...] 2.16 K/ul 03/09/2016 Cbc With Differential Ord2 [place] ABS# 0.9 K/ul 03/09/2016 Cbc With Differential Ord2 Eos ABS# 0.1 K/ul 03/09/2016 Cbc With Differential Ord2 Baso ABS# 0.0 K/ul 03/09/2016 Lipid Ord30 CHOL 283 mg/dL 03/09/2016 Lipid Ord30 HDL 40.0 mg/dl 03/09/2016 Lipid Ord30 TRIG 271 mg/dL 03/09/2016 Lipid Ord30 LDL 189 mg/dL 03/09/2016 Lipid Ord30 C/HDL 7.1 Ratio 03/09/2016 Comp Metabolic Val330 NA 137 mEq/L 09/15/2015 Comp Metabolic Ypv943 K 4.4 mEq/L 09/15/2015 Comp Metabolic Hkf405 CL 101 mEq/L 09/15/2015 Comp Metabolic Edf706 CO2 28.0 mEq/L 09/15/2015 Comp Metabolic Ijx659 ANION GAP 12 09/15/2015 Comp Metabolic Jbc690 GLUCOSE 89 mg/dL 09/15/2015 Comp Metabolic Dsq021 Creat 0.8 mg/dL 09/15/2015 Comp Metabolic Tpf361 eGFR 73 ml/min/1.73m2 09/15/2015 Comp Metabolic Imh730 BUN 20 mg/dL 09/15/2015 Comp Metabolic Iph402 B/C Ratio 24.1 Ratio 09/15/2015 Comp Metabolic Wvq148 CALCIUM 10.1 mg/dL 09/15/2015 Comp Metabolic Ygo492 ALK PHOS 72 U/L 09/15/2015 Comp Metabolic Vkp691 AST(SGOT) 16 U/L 09/15/2015 Comp Metabolic Rgc251 ALT(SGPT) 15 U/L 09/15/2015 Comp Metabolic Yar509 BILI T 0.5 mg/dL 09/15/2015 Comp Metabolic Nor604 ALBUMIN 4.4 g/dL 09/15/2015 Comp Metabolic Zqd353 TPRO 7.0 g/dL 09/15/2015 Comp Metabolic Lox991 GLOB 2.6 g/dL 09/15/2015 Comp Metabolic Zpz772 A/G Ratio 1.7 Ratio 09/15/2015 Comp Metabolic Xen710 Osmo 276 mOsmo 09/15/2015 Tsh Ord6 hTSH II 2.99 uIU/mL 09/15/2015 Vitamin D 25 Oh Iwc2878 VITAMIN D, 25 HYDROXY 30.19 ng/mL 09/15/2015 [...] Lipid Ord30 C/HDL 7.0 Ratio 09/15/2015 %Hba1C Omn408 % HbA1c 81801- 6 5.2 % 09/15/2015 %Hba1C Xyl049 Gluc Ave 103 mg/dL 09/15/2015 Review of Systems System Result Effective Dates Constitutional No recent illness 08/04/2017 Constitutional No [...] clear 03/17/2015 None Full Exam - General 1995 Eyes pupils and irises Overall: pupils equal, round, reactive to light and accomodation 03/17/2015 None Procedures Procedure Codes Date FLU VAC NO PRSV 4 SHANNON 3 YRS+ CPT-4: 44210 08/04/2017 ADMIN INFLUENZA VIRUS VAC CPT-4: G0008 08/04/2017 TRIAMCINOLONE ACET INJ NOS CPT-4: J3301 01/27/2017 THER/PROPH/DIAG INJ SC/IM CPT-4: 28101 01/27/2017 ADMIN INFLUENZA VIRUS VAC CPT-4: G0008 07/15/2016 FLU VACC 4 SHANNON [address] YRS PLUS IM SNOMED CT: 01398965 CPT-4: 56445 07/15/2016 Vital Signs Date Vital 08/04/2017 Blood Pressure 1: 140/82 Code: 8480-6 BMI: 31.9 Code: 87407-8 Heart Rate 1: 58 bpm Height: 5'4" SpO2: 99% Weight: 188 lbs 8 oz 07/19/2017 Blood Pressure 1: 136/76 Code: 8480-6 BMI: 32.0 Code: 25045-7 Heart Rate 1: 67 bpm Height: 5'4" SpO2: 97% Weight: 189 lbs 8 oz 05/05/2017 Blood Pressure 1: 142/80 Code: 8480-6 BMI: 32.4 Code: 40527-9 Heart Rate 1: 54 bpm Height: 5'4" SpO2: 98% Weight: 191 lbs 8 oz 01/27/2017 Blood Pressure 1: 132/82 Code: 8480-6 BMI: 34.1 Code: 65414-6 Heart Rate 1: 55 bpm Height: 5'4" SpO2: 99% Weight: 202 lbs 07/15/2016 Blood Pressure 1: 128/72 Code: 8480-6 BMI: 34.4 Code: 55514-7 Heart Rate 1: 50 bpm Height: 5'4" SpO2: 98% Weight: 203 lbs 8 oz 03/16/2016 Blood Pressure 1: 118/78 Code: 8480-6 BMI: 34.5 Code: 11153-4 Heart Rate 1: 55 bpm Height: 5'4" SpO2: 98% Weight: 204 lbs 09/15/2015 Blood Pressure 1: 134/72 Code: 8480-6 BMI: 34.6 Code: 51178-4 Heart Rate 1: 52 bpm Height: 5'4" SpO2: 99% Weight: 205 lbs 03/17/2015 Blood Pressure 1: 128/74 Code: 8480-6 BMI: 35.8 Code: 52983-6 Heart Rate 1: 59 bpm Height: 5'4" SpO2: 98% Weight: 212 lbs Functional Status No Functional Status data History of Present Illness Symptom Name Status Result Effective Date Notes diabetes mellitus Quality non-insulin dependent 08/04/2017 None [...] data Encounters Encounter Performer Location Codes Date ([id number]) 67081 EST. PATIENT, LEVEL IV Diagnosis: Essential (primary) hypertension[ICD10: I10] Diagnosis: Mixed hyperlipidemia[ICD10: E78.2] Diagnosis: Hypothyroidism, unspecified[ICD10: E03.9] Diagnosis: Type 2 diabetes mellitus without complications[ICD10: E11.9] Diagnosis: Encounter for immunization[ICD10: Z23] Delmis Bermudez MD, [facility] CPT-4: 00836 08/04/2017 ([id number]) 43971 EST. PATIENT, LEVEL III Diagnosis: Diverticulitis of large intestine without perforation or abscess without bleeding[ICD10: K57.32] Delmis Bermudez MD, [facility] CPT-4: 33154 07/19/2017 ([id number]) 69951 EST. PATIENT, LEVEL III Diagnosis: Type 2 diabetes mellitus with diabetic polyneuropathy[ICD10: E11.42] Delmis Bermudez MD, [facility] CPT-4: 86185 05/05/2017 ([id number]) 70351 EST. PATIENT, LEVEL IV Diagnosis: Essential (primary) hypertension[ICD10: I10] Diagnosis: Type 2 diabetes mellitus without complications[ICD10: E11.9] Diagnosis: Mixed hyperlipidemia[ICD10: E78.2] Diagnosis: Allergic rhinitis due to pollen[ICD10: J30.1] Ria Bermudez MD, [facility] CPT-4: 95907 01/27/2017 ([id number]) 84485 EST. PATIENT, LEVEL IV Diagnosis: Type 2 diabetes mellitus without complications[ICD10: E11.9] Diagnosis: Essential (primary) hypertension[ICD10: I10] Diagnosis: Mixed hyperlipidemia[ICD10: E78.2] Ria Bermudez MD, [facility] CPT- 4: 08873 07/15/2016 ([id number]) 82594 EST. PATIENT, LEVEL IV Diagnosis: Type 2 diabetes mellitus without complications[ICD10: E11.9] Diagnosis: Polyneuropathy, unspecified[ICD10: G62.9] Diagnosis: Mixed hyperlipidemia[ICD10: E78.2] Ria Bermudez MD [facility] CPT- 4: 89067 03/16/2016 ([id number]) 18947 EST. PATIENT, LEVEL IV Diagnosis: Type 2 diabetes mellitus without complications[ICD10: E11.9] Diagnosis: Essential (primary) hypertension[ICD10: I10] Diagnosis: Vitamin D deficiency, unspecified[ICD10: E55.9] Diagnosis: Mixed hyperlipidemia[ICD10: E78.2] Ria Bermudez MD, [facility] CPT- 4: 81428 09/15/2015 ([id number]) OFFICE VISIT, NEW - LEVEL 4 Diagnosis: ESSENTIAL HYPERTENSION[ICD9: 401.9] Diagnosis: Diabetes mellitus type 2, controlled[ICD9: 250.00] Diagnosis: Peripheral neuropathy[ICD9: 356.9] [facility] CPT- 4: 45167 03/17/2015 Plan of Care Planned Activity Notes Codes Status Date Patient Education: Patient Medication Summary Completed 08/05/2017 [...] to medications. 08/04/2017 Appointment: Delmis Her WPtel: [phone] (30 min) Complex 08/04/2017 Patient Education: Patient Medication Summary Completed 08/04/2017 Patient Education: Obesity Completed 08/04/2017 Care Plan: %Hba1C LOINC : 23198-5 Pending 08/04/2017 Visit Plan: Diverticulitis - rx for antibiotic sent to pt's pharmacy - pt advised to avoid seeds, nuts, popcorn, or any other food which has been proven to upset the pt's stomach. Call if symptoms do not improve or if any worse and we will check labs and CT scan. Patient verbalized understanding of plan. 07/19/2017 Appointment: Delmis Her WPtel: [phone] [phone] (30 min) Complex 07/19/2017 Patient Education: Patient Medication Summary Completed 07/19/2017 Patient Education: Obesity Completed 07/19/2017 Visit Plan: Diabetic peripheral neuropathy - diabetes paperwork completed today in the office-patient does want to start medication-RX for gabapentin sent electronically and provided and instructed on use. Patient verbalized understanding of plan. 05/05/2017 Appointment: Delmis Her WPtel: [phone] (30 min) Complex 05/05/2017 Patient Education: Patient Medication Summary Completed 05/05/2017 Patient Education: Obesity Completed 05/05/2017 Appointment: Delmis Her WPtel: [phone] [facility] - Annual Wellness Visit 01/28/2017 [...] of kenalog 01/27/2017 Appointment: Ria Bermudez WPtel: [facility] (15 min) Moderate 01/27/2017 Patient Education: Patient Medication Summary Completed 01/27/2017 Patient Education: Obesity Completed 01/27/2017 Appointment: Ria Bermudez WPtel: [facility] (15 min) Moderate 01/11/2017 Visit [...] dications. 07/15/2016 Appointment: Ria Bermudez WPtel: [phone] [id number] (15 min) Moderate 07/15/2016 Patient Education: Patient [...] time. 03/16/2016 Appointment[phone] [place] (15 min) Moderate 03/16/2016 Patient Education: [...] are starting to become less controlled. Peripheral oozjbwjdae-[id number] foot exam today in the office and [...] are starting to become less controlled. Peripheral bkbqmdlejw-UU-jpumupkc foot exam today in the office and [...] are starting to become less controlled. Peripheral tqefwzpjgi-FR-tkrhzoui foot exam today in the office and paperwork completed for diabetic shoes-see scanned document 03/17/2015 Appointment: Ria Bermudez [facility]Ptel[id number] [place] [facility] New Patient 03/17/2015 Patient [...] are starting to become less controlled. Peripheral wtoahrhkom-QY-aansipmg foot exam today in the office and [...] are starting to become less controlled. Peripheral blsxhzymgk-ME-jugpetil foot exam today in the office and [...] are starting to become less controlled. Peripheral hxloibnvhv-CW-ollrpsoz foot exam today in the office and [...] parents who are in their lat 80's. start on coenzyme q10 - QUINOL - [...] not interested in treatment at this time. Vitamin D level was [...] on use. Patient verbalized understanding of plan. DECREASE LEVOTHYOXINE [...]
--- OUTSIDE RECORDS SUMMARY | 2019-04-04 07:24 | XMS REPORT | Continuity of Care Document ---
Author Organization Unknown Address Unknown Allergies Active Description Code Type Severity Reaction Onset Reported/Identified Relationship to Patient Clinical Status Yes Penicillins [id number] Drug Allergy Mild N/A 07/19/2014 Yes Sulfa (Sulfonamide Antibiotics) [id number] Drug Allergy Mild N/A 07/19/2014 Medications There is no data. Problems Date Dx Coded Attending Type Code Diagnosis Diagnosed By 07/19/2014 LIZ MERINO, DONNA Serra Ot 562.10 DIVERTICULOSIS COLON (W/O MENT OF HEMORR 07/19/2014 DONNA HILL MD Ot V76.51 SCREEN MAL NEOP-COLON 03/06/2015 CORRINE MERINO, VICTORIA Mae Ot V76.12 03/06/2015 VICTORIA CASTLE MD Ot V76.12 04/03/2015 VICTORIA CASTLE MD Ot V76.12 03/10/2016 MEME SADLER POACHER WRINGER OPERATOR Ot Z12.31 ENCNTR SCREEN MAMMOGRAM FOR MALIGNANT NE 03/10/2016 MEME SADLER POACHER WRINGER OPERATOR Ot Z12.31 ENCNTR SCREEN MAMMOGRAM FOR MALIGNANT NE 03/10/2016 MEME SADLER POACHER WRINGER OPERATOR Ot Z12.31 ENCNTR SCREEN MAMMOGRAM FOR MALIGNANT NE 03/15/2016 MEME SADLER POACHER WRINGER OPERATOR Ot Z12.31 ENCNTR SCREEN MAMMOGRAM FOR MALIGNANT NE 04/02/2016 MEME SADLER POACHER WRINGER OPERATOR Ot Z12.31 ENCNTR SCREEN MAMMOGRAM FOR MALIGNANT NE 05/19/2017 MEME SADLER POACHER WRINGER OPERATOR Ot Z12.31 ENCNTR SCREEN MAMMOGRAM FOR MALIGNANT NE 05/19/2017 MEME SADLER POACHER WRINGER OPERATOR Ot Z12.31 ENCNTR SCREEN MAMMOGRAM FOR MALIGNANT NE 06/08/2017 MEME SADLER POACHER WRINGER OPERATOR Ot Z12.31 ENCNTR SCREEN MAMMOGRAM FOR MALIGNANT NE 08/10/2018 SINDY SHEA REGIONAL ENVIRONMENTAL MANAGER Ot Z12.31 ENCNTR SCREEN MAMMOGRAM FOR MALIGNANT NE 08/14/2018 CORRINE MERINO, VICTORIA Mae Ot V76.12 OTH SCREEN MAMMO-MALIGN NEOPLASM OF [place] 08/14/2018 LIZ MERINO, DONNA Serra Ot V72.84 EXAM PRE-OPERATIVE NOS 08/14/2018 VICTORIA CASTLE MD Ot V76.12 OTH SCREEN MAMMO-MALIGN NEOPLASM OF [place] 08/14/2018 MEME SADLER POACHER WRINGER OPERATOR Ot Z12.31 ENCNTR SCREEN MAMMOGRAM FOR MALIGNANT NE 08/14/2018 MEME SADLER POACHER WRINGER OPERATOR Ot Z12.31 ENCNTR SCREEN MAMMOGRAM FOR MALIGNANT NE 08/14/2018 SINDY SHEA REGIONAL ENVIRONMENTAL MANAGER Ot Z12.31 ENCNTR SCREEN MAMMOGRAM FOR MALIGNANT NE 01/03/2019 SINDY SHEA REGIONAL ENVIRONMENTAL MANAGER Ot I48.91 UNSPECIFIED ATRIAL FIBRILLATION 01/08/2019 SINDY SHEA REGIONAL ENVIRONMENTAL MANAGER Ot I48.91 UNSPECIFIED ATRIAL FIBRILLATION 01/10/2019 BERNARDA RODRIGUEZ MD J Ot E78.1 PURE HYPERGLYCERIDEMIA 01/10/2019 BERNARDA RODRIGUEZ MD J Ot E78.2 MIXED HYPERLIPIDEMIA 01/10/2019 BERNARDA RODRIGUEZ MD J Ot I48.2 CHRONIC ATRIAL FIBRILLATION 01/10/2019 BERNARDA RODRIGUEZ MD J Ot R00.2 PALPITATIONS 01/10/2019 BERNARDA RODRIGUEZ MD J Ot R42 DIZZINESS AND GIDDINESS 01/15/2019 SINDY SHEA REGIONAL ENVIRONMENTAL MANAGER Ot I48.91 UNSPECIFIED ATRIAL FIBRILLATION 01/26/2019 SINDY SHEA REGIONAL ENVIRONMENTAL MANAGER Ot I48.91 UNSPECIFIED ATRIAL FIBRILLATION 02/05/2019 BERNARDA RODRIGUEZ MD J Ot E78.1 PURE HYPERGLYCERIDEMIA 02/05/2019 BERNARDA RODRIGUEZ MD J Ot E78.2 MIXED HYPERLIPIDEMIA 02/05/2019 BERNARDA RODRIGUEZ MD J Ot I48.2 CHRONIC ATRIAL FIBRILLATION 02/05/2019 BERNARDA RODRIGUEZ MD J Ot R00.2 PALPITATIONS 02/05/2019 BERNARDA RODRIGUEZ MD J Ot R42 DIZZINESS AND GIDDINESS 02/05/2019 SINDY SHEA REGIONAL ENVIRONMENTAL MANAGER Ot I48.91 UNSPECIFIED ATRIAL FIBRILLATION 02/07/2019 SINDY SHEA REGIONAL ENVIRONMENTAL MANAGER Ot I48.91 UNSPECIFIED ATRIAL FIBRILLATION 02/27/2019 SINDY SHEA REGIONAL ENVIRONMENTAL MANAGER Ot I48.91 UNSPECIFIED ATRIAL FIBRILLATION 02/27/2019 SINDY SHEA REGIONAL ENVIRONMENTAL MANAGER Ot M79.602 PAIN IN LEFT ARM 03/01/2019 SINDY SHEA REGIONAL ENVIRONMENTAL MANAGER Ot I48.91 UNSPECIFIED ATRIAL FIBRILLATION 03/01/2019 SINDY SHEA REGIONAL ENVIRONMENTAL MANAGER Ot M79.602 PAIN IN LEFT ARM 03/16/2019 SINDY SHEA REGIONAL ENVIRONMENTAL MANAGER Ot I48.91 UNSPECIFIED ATRIAL FIBRILLATION 03/16/2019 SINDY SHEA REGIONAL ENVIRONMENTAL MANAGER Ot M79.602 PAIN IN LEFT ARM 04/01/2019 BERNARDA RODRIGUEZ MD Ot E78.1 PURE HYPERGLYCERIDEMIA 04/01/2019 BERNARDA RODRIGUEZ MD Ot E78.2 MIXED HYPERLIPIDEMIA 04/01/2019 BERNARDA RODRIGUEZ MD Ot R00.2 PALPITATIONS Procedures There is no data. Results Test Result Range Complete blood count (CBC) with automated white blood cell (WBC) differential - 12/19/18 12:50 Blood leukocytes automated count (number/volume) 10.0 10*3/uL 4.3-11.0 Blood erythrocytes automated count (number/volume) 5.74 10*6/uL 4.35-5.85 Venous blood hemoglobin measurement (mass/volume) 16.2 g/dL 11.5-16.0 Blood hematocrit (volume fraction) 48 % 35-52 Automated erythrocyte mean corpuscular volume 83 [foz_us] 80-99 Automated erythrocyte mean corpuscular hemoglobin (mass per erythrocyte) 28 pg 25-34 Automated erythrocyte mean corpuscular hemoglobin concentration measurement (mass/volume) 34 g/dL 32-36 Automated erythrocyte distribution width ratio 14.0 % 10.0- 14.5 Automated blood platelet count (count/volume) 296 10*3/uL 130-400 Automated blood platelet mean volume measurement 11.0 [foz_us] 7.4-10.4 Automated blood neutrophils/100 leukocytes 55 % 42-75 Automated blood lymphocytes/100 leukocytes 35 % 12-44 Blood monocytes/100 leukocytes 9 % 0-12 Automated blood eosinophils/100 leukocytes 1 % 0-10 Automated blood basophils/100 leukocytes 0 % 0-10 Blood neutrophils automated count (number/volume) 5.5 10*3 1.8-7.8 Blood lymphocytes automated count (number/volume) 3.5 10*3 1.0-4.0 Blood monocytes automated count (number/volume) 0.9 10*3 0.0- 1.0 Automated eosinophil count 0.1 10*3/uL 0.0-0.3 Automated blood basophil count (count/volume) 0.0 10*3/uL 0.0-0.1 Comprehensive metabolic panel - 12/19/18 12:50 Serum or plasma sodium measurement (moles/volume) 138 mmol/L 135-145 Serum or plasma potassium measurement (moles/volume) 4.0 mmol/L 3.6-5.0 Serum or plasma chloride measurement (moles/volume) 103 mmol/L 98-107 Carbon dioxide 22 mmol/L 21-32 Serum or plasma anion gap determination (moles/volume) 13 mmol/L 5-14 Serum or plasma urea nitrogen measurement (mass/volume) 17 mg/dL 7-18 Serum or plasma creatinine measurement (mass/volume) 1.04 mg/dL 0.60-1.30 Serum or plasma urea nitrogen/creatinine mass ratio 16 NRG Serum or plasma creatinine measurement with calculation of estimated glomerular filtration rate 52 NRG Serum or plasma glucose measurement (mass/volume) 98 mg/dL 70-105 Serum or plasma calcium measurement (mass/volume) 10.4 mg/dL 8.5-10.1 Serum or plasma total bilirubin measurement (mass/volume) 0.7 mg/dL 0.1-1.0 Serum or plasma alkaline phosphatase measurement (enzymatic activity/volume) 91 U/L 40-136 Serum or plasma aspartate aminotransferase measurement (enzymatic activity/volume) 32 U/L 5-34 Serum or plasma alanine aminotransferase measurement (enzymatic activity/volume) 35 U/L 0-55 Serum or plasma protein measurement (mass/volume) 7.7 g/dL 6.4-8.2 Serum or plasma albumin measurement (mass/volume) 4.4 g/dL 3.2-4.5 CALCIUM CORRECTED 10.1 mg/dL 8.5-10.1 THYROID STIMULATING HORMONE - 12/19/18 12:50 THYROID STIMULATING HORMONE 4.42 u[iU]/mL 0.35-4.94 Serum or plasma thyroxine (T4) free measurement (mass/volume) - 12/19/18 12:50 Serum or plasma thyroxine (T4) free measurement (mass/volume) 1.53 ng/dL 0.70-1.48 Comprehensive metabolic panel - 05/14/19 11:11 Serum or plasma sodium measurement (moles/volume) 139 mmol/L 135-145 Serum or plasma potassium measurement (moles/volume) 4.3 mmol/L 3.6-5.0 Serum or plasma chloride measurement (moles/volume) 105 mmol/L 98-107 Carbon dioxide 25 mmol/L 21-32 Serum or plasma anion gap determination (moles/volume) 9 mmol/L 5-14 Serum or plasma urea nitrogen measurement (mass/volume) 21 mg/dL 7-18 Serum or plasma creatinine measurement (mass/volume) 0.96 mg/dL 0.60-1.30 Serum or plasma urea nitrogen/creatinine mass ratio 22 NRG Serum or plasma creatinine measurement with calculation of estimated glomerular filtration rate 57 NRG Serum or plasma glucose measurement (mass/volume) 93 mg/dL 70-105 Serum or plasma calcium measurement (mass/volume) 10.4 mg/dL 8.5-10.1 Serum or plasma total bilirubin measurement (mass/volume) 0.4 mg/dL 0.1-1.0 Serum or plasma alkaline phosphatase measurement (enzymatic activity/volume) 84 U/L 40-136 Serum or plasma aspartate aminotransferase measurement (enzymatic activity/volume) 15 U/L 5-34 Serum or plasma alanine aminotransferase measurement (enzymatic activity/volume) 18 U/L 0-55 Serum or plasma protein measurement (mass/volume) 7.4 g/dL 6.4-8.2 Serum or plasma albumin measurement (mass/volume) 4.4 g/dL 3.2-4.5 CALCIUM CORRECTED 10.1 mg/dL 8.5-10.1 Serum or plasma creatine kinase measurement (enzymatic activity/volume) - 02/20/19 11:11 Serum or plasma creatine kinase measurement (enzymatic activity/volume) 79 U/L 29-168 Serum or plasma troponin i.cardiac measurement (mass/volume) - 02/20/19 11:11 Serum or plasma troponin i.cardiac measurement (mass/volume) < ng/mL <0.028 Encounters ACCT No. Visit Date/Time Discharge Status Pt. Type Provider Facility Loc./Unit Complaint [id number] 03/28/2019 07:05:00 03/28/2019 23:59:59 CLS Outpatient MICHAEL MERINO, BERNARDA Youngblood [facility] CARD AF,PALPITATION [id number] 03/20/2019 08:14:00 03/20/2019 23:59:59 CLS Preadmit BERNARDA RODRIGUEZ MD [facility] SLEEP GERDA [id number] 02/20/2019 10:57:00 02/20/2019 23:59:59 CLS Outpatient SINDY SHEA REGIONAL ENVIRONMENTAL MANAGER [facility] CARD LT ARM PAIN [id number] 01/09/2019 12:04:00 01/09/2019 23:59:59 CLS Outpatient BERNARDA RODRIGUEZ MD [facility] CARD AF, MIXED HYPERLIPIDEMIA [id number] 01/02/2019 10:27:00 01/02/2019 23:59:59 CLS Outpatient SINDY SHEA REGIONAL ENVIRONMENTAL MANAGER [facility] CARD AFIB [id number] 12/19/2018 12:24:00 12/19/2018 23:59:59 CLS Outpatient SINDY SHEA REGIONAL ENVIRONMENTAL MANAGER [facility] CARD AFIB [id number] 08/14/2018 09:03:00 08/14/2018 23:59:59 CLS Outpatient SINDY SHEA [facility] RAD SCREENING [id number] 05/19/2017 09:51:00 05/19/2017 23:59:59 CLS Outpatient MEME SADLER APRN [facility] RAD SCREENING Z12.31 [id number] 03/09/2016 10:21:00 03/09/2016 23:59:59 CLS Outpatient MEME SADLER APRN [facility] RAD SCREENING [id number] 03/05/2015 08:38:00 03/05/2015 23:59:59 CLS Outpatient VICTORIA CASTLE MD [facility] RAD SCREENING [id number] 07/19/2014 08:10:00 07/19/2014 11:15:00 DIS Outpatient DONNA HILL MD [facility] SDC SCREENING [id number] 07/18/2014 07:23:00 07/18/2014 23:59:59 CLS Outpatient DONNA HILL MD [facility] PREOP SCREENING [id number] 02/05/2014 08:37:00 02/05/2014 23:59:59 CLS Outpatient CORRINE MERINO, VICTORIA Mae [facility] RAD SCREENING [id number] 04/04/2019 08:00:00 PEN Preadmit MICHAEL MERINO, BERNARDA Youngblood [facility] CATH CAD
[2019-04-04] MEDS ORDERED: DILT120C53 PO (07:26)
[2019-04-04] MEDS ORDERED: VIT1TABL93 PO (07:26)
[2019-04-04] MEDS ORDERED: LEVO112T55 PO (07:26)
[2019-04-04] MEDS ORDERED: ENAL5TAB PO (07:26)
[2019-04-04] MEDS ORDERED: EZET10TA49 PO (07:26)
[2019-04-04] MEDS ORDERED: OMEG-25 PO (07:26)
[2019-04-04] MEDS ORDERED: INDA1.25 PO (07:26)
[2019-04-04] MEDS ORDERED: ACET-168 PO (07:26)
[2019-04-04] MEDS ORDERED: GABA-486 PO (07:26)
[2019-04-04] MEDS ORDERED: APIX5TAB PO (07:26)
--- NOTE | 2019-04-04 07:26 | Diagnostic Imaging Report ---
Indication: Preoperative evaluation. Findings: Portable upright view of the chest demonstrates mild cardiomegaly with normal vascularity. Lungs are clear. There are no pleural effusions. Impression: There is mild cardiomegaly. Dictated by: Dictated on workstation # [id number]
[2019-04-04] MEDS ORDERED: fentaNYL INJECTION 100 MCG/2 ML AMP ONE (07:30)
[2019-04-04] MEDS ORDERED: MIDAZOLAM 5 MG/5 ML (VERSED) VIAL ONE (07:30)
[2019-04-04] MEDS ORDERED: VERAPAMIL 5 MG/2 ML (CALAN) VIAL IV ONE (07:31)
[2019-04-04] MEDS ORDERED: HEParin 1000 UNIT/ML (10ML VIAL) FOR BOLUS ONE (07:31)
[2019-04-04] MEDS ORDERED: NITRO DRIP 25000 MCG/D5W 250 ML IV ONE (07:31)
[2019-04-04 07:34] LABS: PROTHROMBIN TIME PATIENT 13.3 SEC (12.2-14.7)
[2019-04-04 07:42] LABS: ALANINE AMINOTRANSFERASE 17 U/L (0-55); ALBUMIN 4.7 GM/DL (3.2-4.5); ALKALINE PHOSPHATASE 92 U/L (40-136); BILIRUBIN,TOTAL 0.4 MG/DL (0.1-1.0); BUN/CREATININE RATIO 25; CALCIUM 10.4 MG/DL (8.5-10.1); CARBON DIOXIDE 23 MMOL/L (21-32); CHLORIDE 103 MMOL/L (98-107); CHOLESTEROL 275 MG/DL (< 200); CREATININE SERUM 0.87 MG/DL (0.60-1.30); GFR ESTIMATED > 60; GLUCOSE 91 MG/DL (70-105); HDL CHOLESTEROL 45 MG/DL (40-60); POTASSIUM 3.7 MMOL/L (3.6-5.0); SODIUM 139 MMOL/L (135-145); TRIGLYCERIDES 274 MG/DL (<150); VLDL CHOLESTEROL 55 MG/DL (5-40)
[2019-04-04 07:43] LABS: BACTERIA,URINE FEW /HPF
--- NOTE | 2019-04-04 08:23 | Cardiac Procedure Note-CS/ASA ---
Pre-Procedure Note Pre-Op Procedure Note H&P Reviewed The H&P was reviewed, patient examined and no changes noted. Date H&P Reviewed: Apr 04, 2019 Time H&P Reviewed: 08:22 Conscious Sedation Pre-Proced Time 08:22 ASA Score 3 For ASA 3 and 4: Consider anesthesia and medical clearance. Also, for patients with a history of failed moderate sedation consider anesthesia. Airway Lungs Heart ASA score ASA 1: a normal healthy patient ASA 2: a patient with a mild systemic disease (mid diabetes, controlled hypertension, obesity x ASA 3: a patient with a severe systemic disease that limits activity (angina, COPD, prior Myocardial infarction) ASA 4: a patient with an incapacitating disease that is a constant threat to life (CHF, renal failure) ASA 5: a moribund patient not expected to survive 24 hrs. (ruptured aneurysm) ASA 6: a declared brain- patient whose organs are being harvested. For emergent operations, add the letter E after the classification Mallampati Classification Grade 3 Sedation Plan Analgesia, Amnesia, Plan communicated to team members, Discussed options with patient/fam, Discussed risks with patient/fam The patient is an appropriate candidate to undergo the planned procedure, sedation, and anesthesia. The patient immediately re-assessed prior to indication. BERNARDA RODRIGUEZ MD Apr 04, 2019 08:23
[2019-04-04] MEDS ORDERED: ASPIRIN 81 MG CHEW (CHILDREN'S ASA) ONE (09:05)
[2019-04-04] MEDS ORDERED: CLOPIDOGREL 300 MG (PLAVIX) TABLET PO ONE (09:05)
[2019-04-04] MEDS ORDERED: GABAPENTIN 100 MG (NEURONTIN) CAP PO PRN (10:00)
--- NOTE | 2019-04-04 10:58 | Cardiac Cath Report ---
Cardiac Cath Report Physician (s)/Fpga Design Engineer (s) Physician BERNARDA RODRIGUEZ MD Pre-Procedure Diagnosis Pre-Procedure Diagnosis: coronary artery disease, atrial fibrillation Post-Procedure Note Procedure Start Date: Apr 04, 2019 Name of Procedure: Left heart catheterization Stent to the LAD Findings/Procedure Note PROCEDURE NOTE: 68 years old lady with history of hypertension, hyperlipidemia, atrial fib ablation, had an abnormal stress test. She was scheduled for cardiac catheterization possible PTCA. After explaining the procedure to the patient, all pros and cons were explained, all questions were answered. The patient signed the consent and then she was placed on the cardiac catheterization laboratory. Groin was prepped SL fashion local anesthesia was used. Sheath placed in the right radial artery. Jewett catheter was used and advanced to the left ventricular cavity then to the right coronary artery and angiogram was done, exchanged over long wire into Rachel catheter, angiogram to the left system was done. At that point I was suspicious of significant disease, could not have a full intubation if the left system I exchanged the catheter again to EBU guide, angiogram showed total occlusion of the LAD and severe stenosis in the ramus intermedius, the LAD appeared to be chronic total occlusion receiving collaterals from the left system. Patient was given additional 4000 units of heparin, BMW wire was advanced through the ramus intermedius then I predilated with 2.0 x 20 mm balloon then proceeded with deployment of a Xience Marj 2.25 x 18 mm deployed under 11 marcos to 2.31 mm with excellent results. No residual stenosis. The artery is fairly small. At the end of the procedure the sheath was removed. vascular band was used FINDINGS: Hemodynamics LV 103/13, end-diastolic pressure of 13 Aorta 104/55 mean of 76 ANATOMY: Left Main has 50 percent distal stenosis Left Anterior Descending is totally occluded proximally, reconstructed by collaterals Ramus intermedius has 95 proximal stenosis successful balloon and to plasty then deployment of 2.25 x 18 mm Xience Marj stent under 11 marcos expanded to 2.31 with excellent results Left Circumflex is large dominant artery with mild disease Right Coronory Artery is small nondominant artery LV Gram was not done, pressure was measured CONCLUSION: 1. Totally occluded LAD that is chronic total occlusion receiving collateral from the left system. 2. 95 percent proximal ramus intermedius stenosis successful deployment of d rug-eluting stent Marj 2.25 x 18 mm expanded to 2.31 with excellent results 3. Dominant large circumflex artery with no obstructive disease, small nondominant right coronary artery 4. Normal left ventricular end-diastolic pressure DISCUSSION AND RECOMMENDATION: I will continue maximizing medical therapy at this point, regarding the LAD and the left main patient need to be monitored, consideration for follow-up evaluation at a tertiary care center with chronic total occlusion management versus bypass surgery Anesthesia Type: Conscious Sedation Estimated blood loss (mL): 25 ml Contrast Amount: 280 ml Total Radiation Dose: 2150 mGy Post-Procedure Diagnosis Post-operative diagnosis: Coronary artery disease Chronic atrial fibrillation Hypertension Hyperlipidemia BERNARDA RODRIGUEZ MD Apr 04, 2019 10:58
[2019-04-04] MEDS: NS IV 1000 ML 1,000 ML IV SCH ×2 (14:58→20:37)
[2019-04-04] MEDS: APIXABAN 5 MG (ELIQUIS) TABLET PO SCH (20:20)
[2019-04-04] MEDS ORDERED: ATORVASTATIN 20 MG (LIPITOR) TABLET PO SCH (21:00)
[2019-04-05] VITALS: BP 148/67
[2019-04-05 04:00] VITALS: BP 138/67
[2019-04-05] MEDS: NS IV 1000 ML 1,000 ML IV SCH (06:06)
[2019-04-05] MEDS ORDERED: CLOP75TA28 PO (07:52)
[2019-04-05] MEDS ORDERED: PANT40SU PO (07:52)
[2019-04-05] MEDS ORDERED: ASPI-983 PO (07:52)
--- NOTE | 2019-04-05 07:53 | Discharge Inst-Post CATH ---
Discharge Inst-CATH/EP Post Cardiac Cath/EP D/C Inst Follow Up/Plan Appointment with Dr Poole's office in 2-4 weeks <b>CARDIAC CATH/EP PROCEDURE DISCHARGE INSTRUCTIONS</b> ACTIVITY * Go Home directly and rest. * Limit activity of the leg (or wrist if it was used) for 7 days including aerobics, swimming, jogging, bicycling, etc. * Restrict stair-climbing for 7 days if possible, if not, climb up with your non-cath leg, then bring together on the same step. * Avoid lifting, pushing, pulling or excessive movement of the affected extremity for 7 days. * Customary sexual activity may be resumed after 2 days-use caution not to use a position that strains or causes pain to the affected extremity. * No driving for 24 hours. * NO SMOKING. * Avoid straining for bowel movements for 7 days. * Gentle walking on level ground is allowed. * Returning to work will depend on the type of procedure and the results. Your doctor will discuss this with you. CALL YOUR DOCTOR FOR ANY OF THE FOLLOWING: *If bleeding from the puncture site occurs- Apply gentle pressure to site with clean cloth and call your doctor or EMS. * If a knot or lump forms under the skin, increases in size, or causes pain. * If bruising appears to be worsening or moving further down your leg instead of disappearing. * Temperature above 101 F. CARE OF YOUR GROIN INCISION; * Bruising or purple discoloration of the skin near the puncture site is common. * You may shower only, no bathtub bathing for 5 days. Be careful to avoid slipping as your leg may feel stiff. * If a closure device was used on your femoral artery, please see the attached guide regarding care of the device and your leg. * Leave dressing on FOR 24 hours. CARE OF YOUR WRIST INCISION; * Bruising or purple discoloration of the skin near the puncture site is common. * You may shower. * DO NOT submerge wrist. * Leave dressing on FOR 24 hours. BERNARDA POOLE MD Apr 05, 2019 07:53
--- NOTE | 2019-04-05 07:56 | Cardiology Progress Note ---
Subjective Date Seen by Provider: Apr 05, 2019 Time Seen by Provider: 07:54 Subjective/Events-last exam patient is laying down in bed, feeling well. Reported that she cannot tolerate statin due to myopathy, she has provided in the past Review of Systems General: No Chills, No Night Sweats, No Fatigue, No Malaise, No Appetite, No Other HEENT: No Head Aches, No Visual Changes, No Eye Pain, No Ear Pain, No Dysphasia, No Sinus Congestion, No Post Nasal Drip, No Sore Throat, No Other Pulmonary: No Dyspnea, No Cough, No Pleuritic Chest Pain, No Other Cardiovascular: No: Chest Pain, Palpitations, Orthopnea, Paroxysmal Noc. Dyspnea, Edema, Lt Headedness, Other Objective-Cardiology Exam Last Set of Vital Signs Vital Signs 04/05/19 04:00 Temp 98.3 Pulse 53 Resp 16 B/P (MAP) 138/67 (90) Pulse Ox 98 O2 Delivery Room Air Capillary Refill : Less Than 3 Seconds I&O Intake and Output 04/04/19 23:59 Intake Total 1540 ml Balance 1540 ml Intake Oral 540 ml IV Total 1000 ml # Voids 3 General: Alert, Oriented X3, Cooperative HEENT: Atraumatic, PERRLA Neck: Supple, No JVD, No Thyromegaly Lungs: Clear to Auscultation, Normal Air Movement Heart: Regular Rate, Normal S1, Normal S2, No Murmurs Abdomen: Normal Bowel Sounds, Soft, No Tenderness, No Hepatosplenomegaly, No Masses Extremities: No Clubbing, No Cyanosis, No Edema, Normal Pulses, No Tenderness/Swelling Skin: No Rashes, No Breakdown, No Significant Lesion Neuro: Normal Gait, Normal Speech, Strength at 5/5 X4 Ext, Normal Tone, Sensation Intact Psych/Mental Status: Mental Status NL, Mood NL Results Lab A/P-Cardiology Admission Diagnosis coronary artery disease Hypertension Hyperlipidemia Hypothyroidism Assessment/Plan Coronary artery disease extensive disease as described below. Cardiac catheterization findings: 1. Totally occluded LAD that is chronic total occlusion receiving collateral from the left system. 2. 95 percent proximal ramus intermedius stenosis successful deployment of drug-eluting stent Marj 2.25 x 18 mm expanded to 2.31 with excellent results 3. Dominant large circumflex artery with no obstructive disease, small nondominant right coronary artery 4. Normal left ventricular end-diastolic pressure Hypertension, controlled, continue to monitor Hyperlipidemia, intolerant to statin, we will try Repatha Paroxysmal atrial fibrillation, on Eliquis, in sinus rhythm Hypothyroidism, managed by primary care physician, continue current medication BERNARDA RODRIGUEZ MD Apr 05, 2019 07:56
[2019-04-05 08:00] VITALS: BP 142/66
[2019-04-05] MEDS ORDERED: LEVOTHYROXINE 112 MCG (LEVOTHROID) TAB PO SCH (09:00)
[2019-04-05] MEDS ORDERED: DILTIAZEM 120 MG (CARDIZEM CD) CAP PO SCH (09:00)
[2019-04-05] MEDS ORDERED: CLOPIDOGREL 75 MG (PLAVIX) TABLET PO SCH (09:00)
[2019-04-05] MEDS ORDERED: eZETimibe 10 MG (ZETIA) TABLET PO SCH (09:00)
[2019-04-05] MEDS ORDERED: ENALAPRIL 5 MG (VASOTEC) TAB PO SCH (09:00)
[2019-04-05] MEDS ORDERED: ASPIRIN E.C. 81 MG (ECOTRIN) TAB PO SCH (09:00)
[2019-04-05] MEDS: APIXABAN 5 MG (ELIQUIS) TABLET PO SCH (09:08)
== END 2019-04-05 09:35 | disposition home or self-care (01) ==
LOC: CATH 06:40 → ICU 09:41 → CATH 04-05 09:35
PROVIDERS: ATTEND Internal Medicine Cardiovascular Disease
DX: I25.10 Atherosclerotic heart disease of native coronary artery without angina pectoris (principal); I48.2 Chronic atrial fibrillation; I10 Essential (primary) hypertension; E78.2 Mixed hyperlipidemia; E78.1 Pure hyperglyceridemia; I65.23 Occlusion and stenosis of bilateral carotid arteries; I34.0 Nonrheumatic mitral (valve) insufficiency; Z88.1 Allergy status to other antibiotic agents; Z79.01 Long term (current) use of anticoagulants; Z79.899 Other long term (current) drug therapy
CPT/HCPCS: 36415; 71045; 80053; 80061; 81000; 85027; 85347; 85610; 85730; 87081; 87088; 93005; 93458

== ENCOUNTER 2019-05-15 12:38 | Outpatient (CLI) | payer MEDICARE, BC ==
[~2019-05-15 12:38] MED LIST changes: +ACET-168 PO; +APIX5TAB PO; +ASPI-983 PO; -CATHETER FLUSH 10 ML SYR IV PRN; +CLOP75TA28 PO; +DILT120C53 PO; +ENAL5TAB PO; +EZET10TA49 PO; +GABA-486 PO; +INDA1.25 PO; +LEVO112T55 PO; +OMEG-25 PO; +PANT40SU PO; +VIT1TABL93 PO
== END 2019-05-15 13:45 | disposition home or self-care (01) ==
LOC: SLEEP 12:38
PROVIDERS: ATTEND Internal Medicine Cardiovascular Disease
DX: G47.33 Obstructive sleep apnea (adult) (pediatric) (principal); I49.9 Cardiac arrhythmia, unspecified; I25.9 Chronic ischemic heart disease, unspecified; I10 Essential (primary) hypertension; G47.00 Insomnia, unspecified; G47.10 Hypersomnia, unspecified

== ENCOUNTER 2019-07-27 08:46 | Outpatient (RCR) | payer MEDICARE, BC | END 2019-08-28 | disposition home or self-care (01) | LOC: CR 08:46 | PROVIDERS: ATTEND Internal Medicine Cardiovascular Disease | DX: Z48.812 Encounter for surgical aftercare following surgery on the circulatory system (principal); Z95.5 Presence of coronary angioplasty implant and graft | CPT/HCPCS: 93798 ==

== ENCOUNTER → 2020-11-07 | Outpatient (CLI) | payer MEDICARE, BC ==
[~2020-11-07] MED LIST changes: +ASPI-1238 PO; -ASPI-983 PO; -ENAL5TAB PO; +ENLP5T PO
== END ==
LOC: CARD 12:04
PROVIDERS: ATTEND Family Medicine
DX: R00.2 Palpitations (principal)
CPT/HCPCS: 93005

== ENCOUNTER 2021-02-16 18:18 | Day surgery (SDC) | payer MEDICARE, BC ==
[~2021-02-16] VITALS: Ht 162.6 cm; Wt 94.3 kg
[2021-02-16 16:38] LABS: HEMOGLOBIN 13.3 g/dL (11.5-16.0); MEAN PLATELET VOLUME 10.5 fL (9.0-12.2); WHITE BLOOD COUNT 8.5 10^3/uL (4.3-11.0)
[2021-02-16 17:02] LABS: INR 1.3 (0.8-1.4); PROTHROMBIN TIME PATIENT 16.1 SEC (12.2-14.7)
[2021-02-16 17:03] LABS: ALANINE AMINOTRANSFERASE 19 U/L (0-55); ALBUMIN 4.2 GM/DL (3.2-4.5); ALKALINE PHOSPHATASE 86 U/L (40-136); BILIRUBIN,TOTAL 0.4 MG/DL (0.1-1.0); BUN/CREATININE RATIO 24; CALCIUM 9.6 MG/DL (8.5-10.1); CARBON DIOXIDE 27 MMOL/L (21-32); CHLORIDE 104 MMOL/L (98-107); CREATININE SERUM 0.88 MG/DL (0.60-1.30); GFR ESTIMATED > 60; GLUCOSE 91 MG/DL (70-105); POTASSIUM 3.5 MMOL/L (3.6-5.0); SODIUM 139 MMOL/L (135-145); TOTAL PROTEIN 6.9 GM/DL (6.4-8.2)
[2021-02-16] MEDS: AMIODARONE INJECTION 450 MG in D5W IV SOLUTION (EXCEL) 250 ML IV SCH ×2 (17:14→23:50)
[~2021-02-16 18:18] MED LIST changes: +AMIODARONE INJECTION 150 MG in D5W 100 ML IVPB 100 ML IV NR; +CATHETER FLUSH 10 ML SYR IV PRN
[2021-02-16] MEDS ORDERED: KCL 20 MEQ TAB (K-DUR) PO NR (19:30)
[2021-02-16] MEDS ORDERED: GABAPENTIN 100 MG (NEURONTIN) CAP PO PRN (19:30)
[2021-02-16] MEDS: APIXABAN 5 MG (ELIQUIS) TABLET PO SCH (20:16)
[2021-02-16] MEDS: AMIODARONE 200 MG (CORDARONE) TAB PO SCH (20:16)
[2021-02-17] MEDS: NS IV 1000 ML 1,000 ML IV SCH ×3 (00:29→10:46)
[2021-02-17 02:59] LABS: BASOPHILS # (AUTO) 0.1 10^3/uL (0.0-0.1); BASOPHILS % (AUTO) 1 % (0-10); EOSINOPHILS # (AUTO) 0.2 10^3/uL (0.0-0.3); EOSINOPHILS % (AUTO) 2 % (0-10); HEMATOCRIT 39 % (35-52); HEMOGLOBIN 12.9 g/dL (11.5-16.0); LYMPHOCYTES # (AUTO) 2.2 10^3/uL (1.0-4.0); LYMPHOCYTES % (AUTO) 31 % (12-44); MEAN CORPUSCULAR HEMOGLOBIN 28 pg (25-34); MEAN CORPUSCULAR HGB CONC 33 g/dL (32-36); MEAN CORPUSCULAR VOLUME 85 fL (80-99); MEAN PLATELET VOLUME 10.4 fL (9.0-12.2); MONOCYTES # (AUTO) 0.6 10^3/uL (0.0-1.0); MONOCYTES % (AUTO) 8 % (0-12); NEUTROPHILS # (AUTO) 4.1 10^3/uL (1.8-7.8); NEUTROPHILS % (AUTO) 57 % (42-75); PLATELET COUNT 213 10^3/uL (130-400); WHITE BLOOD COUNT 7.1 10^3/uL (4.3-11.0)
[2021-02-17 03:10] LABS: CHLORIDE 106 MMOL/L (98-107); POTASSIUM 3.9 MMOL/L (3.6-5.0); SODIUM 140 MMOL/L (135-145)
[2021-02-17 03:11] LABS: CALCIUM 9.5 MG/DL (8.5-10.1); GLUCOSE 99 MG/DL (70-105)
[2021-02-17 03:13] LABS: CARBON DIOXIDE 21 MMOL/L (21-32)
[2021-02-17 03:15] LABS: CREATININE SERUM 0.86 MG/DL (0.60-1.30); GFR ESTIMATED > 60; PHOSPHORUS 3.6 MG/DL (2.3-4.7)
[2021-02-17 03:16] LABS: BUN/CREATININE RATIO 22
[2021-02-17] MEDS ORDERED: LEVOTHYROXINE 112 MCG (LEVOTHROID) TAB PO SCH (06:30)
[2021-02-17] MEDS ORDERED: MIDAZOLAM 5 MG/5 ML (VERSED) VIAL ONE ×2 (07:37→07:41)
[2021-02-17] MEDS ORDERED: proPOfol 200 MG/20 ML (DIPRIVAN) VIAL IV ONE ×3 (07:37→07:53)
[2021-02-17] MEDS ORDERED: LIDOCAINE 2% VISCOUS 15 ML UDC ONE (07:37)
--- NOTE | 2021-02-17 07:40 | Cardiology History & Physical ---
HPI-Cardiology Cardiology Consultation Date of Consultation 02/17/21 Date of Admission Time Seen by Provider: 07:38 Indication: Atrial fibrillation HPI 70-year-old lady with history of coronary artery disease, paroxysmal atrial fibrillation, hypertension hyperlipidemia. Patient was seen in my office yesterday and noted to be in atrial fibrillation with controlled rate. She has b een maintained on oral anticoagulation for the past 2 to 3 weeks. We discussed the management plan recommended admission and ROSE possible cardioversion, patient is traveling out of state tomorrow. She was admitted and started on amiodarone bolus and a drip, heart rate is controlled but still in atrial fibrillation. PMH-Cardiology Immunizations Up To Date Date of Pneumonia Vaccine: Jun 25, 2015 Date of Influenza Vaccine: February 16, 2021 Respiratory No Cardiovascular Yes Neurological No Genitourinary No Gastrointestinal No Cancer No Other PMHx Discussed below Social History Patient Social History Marrital Status: Employed/Student: retired Smoking: Never smoker Have you traveled recently?: No Alcohol Use?: No Family Hx Other Noncontributory to her current condition ROS-Cardiology Review of Systems General: No Chills, No Night Sweats, No Fatigue; Malaise; No Appetite HEENT: No Head Aches, No Visual Changes, No Eye Pain, No Ear Pain, No Dysphasia, No Sinus Congestion, No Post Nasal Drip, No Sore Throat Pulmonary: Dyspnea; No Cough, No Pleuritic Chest Pain Cardiovascular: No: Chest Pain, Palpitations, Orthopnea, Paroxysmal Noc. Dyspnea, Edema, Lt Headedness Gastrointestinal: No: Nausea, Vomiting, Abdominal Pain, Diarrhea, Constipation, Melena, Hematochezia Genitourinary: No Dysuria, No Frequency, No Incontinence, No Hematuria, No Retention Musculoskeletal: No: neck pain, shoulder pain, arm pain, back pain, hand pain, leg pain, foot pain Neurological: No: Weakness, Numbness, Incoordination, Change in speech, Confusion, Seizures Home Medications & Allergies Allergies: Coded Allergies: Penicillins (Unverified Allergy, Mild, 07/19/14) Sulfa (Sulfonamide Antibiotics) (Unverified Allergy, Mild, 07/19/14) Home Medication List Reviewed: Yes Exam-Cardiology Vital Signs Vital Signs Date Time Temp Pulse Resp B/P (MAP) Pulse Ox O2 Delivery O2 Flow Rate FiO2 02/17/21 06:00 67 16 122/70 (87) 98 Room Air 02/17/21 03:26 36.0 Exam General Appearance: Alert, Oriented X3, Cooperative, No Acute Distress HEENT: Atraumatic, PERRLA Respiratory: Clear to Auscultation, Normal Air Movement Cardiovascular: Normal S1, Normal S2, No Murmurs, Other (Atrial fibrillation) Abdominal: Normal Bowel Sounds, Soft, No Tenderness, No Hepatosplenomegaly, No Masses Extremities: No Clubbing, No Cyanosis, No Edema, Normal Pulses, No Tenderne ss/Swelling Skin: No Rashes, No Breakdown, No Significant Lesion Neuro: Normal Gait, Normal Speech, Strength at 5/5 X4 Ext, Normal Tone, Sensation Intact Psych/Mental Status: Mental Status NL, Mood NL Results Labs Labs Laboratory Tests 02/16/21 16:30: White Blood Count 8.5, Red Blood Count 4.66, Hemoglobin 13.3, Hematocrit 39, Mean Corpuscular Volume 85, Mean Corpuscular Hemoglobin 29, Mean Corpuscular Hemoglobin Concent 34, Red Cell Distribution Width 13.6, Platelet Count 251, Mean Platelet Volume 10.5, Prothrombin Time 16.1H, INR Comment 1.3, Activated Partial Thromboplast Time 39H, Sodium Level 139, Potassium Level 3.5L, Chloride Level 104, Carbon Dioxide Level 27, Anion Gap 8, Blood Urea Nitrogen 21H, Creatinine 0.88, Estimat Glomerular Filtration Rate > 60, BUN/Creatinine Ratio 24, Glucose Level 91, Calcium Level 9.6, Corrected Calcium 9.4, Magnesium Level 2.0, Total Bilirubin 0.4, Aspartate Amino Transf (AST/SGOT) 16, Alanine Aminotransferase (ALT/SGPT) 19, Alkaline Phosphatase 86, Total Protein 6.9, Albumin 4.2, Thyroid Stimulating Hormone (TSH) 1.17 02/17/21 02:51: White Blood Count 7.1, Red Blood Count 4.57, Hemoglobin 12.9, Hematocrit 39, Mean Corpuscular Volume 85, Mean Corpuscular Hemoglobin 28, Mean Corpuscular Hemoglobin Concent 33, Red Cell Distribution Width 13.8, Platelet Count 213, Mean Platelet Volume 10.4, Sodium Level 140, Potassium Level 3.9, Chloride Level 106, Carbon Dioxide Level 21, Anion Gap 13, Blood Urea Nitrogen 19H, Creatinine 0.86, Estimat Glomerular Filtration Rate > 60, BUN/Creatinine Ratio 22, Glucose Level 99, Calcium Level 9.5, Magnesium Level 2.0, Immature Granulocyte % (Auto) 0, Neutrophils (%) (Auto) 57, Lymphocytes (%) (Auto) 31, Monocytes (%) (Auto) 8, Eosinophils (%) (Auto) 2, Basophils (%) (Auto) 1, Neutrophils # (Auto) 4.1, Lymphocytes # (Auto) 2.2, Monocytes # (Auto) 0.6, Eosinophils # (Auto) 0.2, Basophils # (Auto) 0.1, Immature Granulocyte # (Auto) 0.0, Phosphorus Level 3.6 A/P-Cardiology Admission Diagnosis Paroxysmal atrial fibrillation Coronary artery disease Dyspnea Hypertension Admission Status: Observation Assessment/Plan Paroxysmal atrial fibrillation noted in December 2018, has been in and out of atrial fibrillation, seen in my office recently and she was started on oral anticoagulation, still in atrial fibrillation, I admitted her and started her on amiodarone bolus and a drip, planning to proceed with electrical cardioversion and ROSE today. Coronary artery disease, underwent cardiac catheterization on April 04, 2019 revealing totally occluded LAD that is chronic total occlusion receiving collateral from the left system. 95 percent proximal ramus intermedius stenosis successful deployment of drug-eluting stent Marj 2.25 x 18 mm expanded to 2.31 with excellent results. Dominant large circumflex artery with no obstructive disease, small nondominant right coronary artery. Continue maximizing medical therapy at this point, regarding the LAD and the left main patient need to be monitored, consideration for follow-up evaluation at a tertiary care center with chronic total occlusion management versus bypass surgery. Patient is asymptom atic. Continue to monitor, continue on Plavix and ASA. Dizziness and lightheadedness, improved after she converted back to sinus rhythm Holter monitor showed sinus rhythm with sinus bradycardia at night, short PAT's, occasional PVCs and PACs. Mild dyspnea on exertion, reports improvement. Mild bilateral carotid stenosis, ultrasound done in December 2018. Reevaluate carotid duplex. Hypertension, controlled, continue to monitor. Hyperlipidemia, on Repatha, LDL in March 2020 was 75. Continue to monitor. Echocardiogram done in December 2018 showing normal left ventricular size and function with ejection fraction 65-70 percent, mild mitral regurgitation, PA pressure 35 mmHg. Hypothyroidism, followed and managed by primary care physician Increasing risk of sleep apnea, sleep study was done in May 2019 showing primary snoring. No sleep apnea. BERNARDA RODRIGUEZ MD February 17, 2021 07:40
--- NOTE | 2021-02-17 07:41 | Conscious Sedation/ASA ---
Conscious Sedation Pre-Proced Time 07:41 ASA Score 3 For ASA 3 and 4: Consider anesthesia and medical clearance. Also, for patients with a history of failed moderate sedation consider anesthesia. Airway Lungs Heart ASA score ASA 1: a normal healthy patient ASA 2: a patient with a mild systemic disease (mid diabetes, controlled hypertension, obesity x ASA 3: a patient with a severe systemic disease that limits activity (angina, COPD, prior Myocardial infarction) ASA 4: a patient with an incapacitating disease that is a constant threat to life (CHF, renal failure) ASA 5: a moribund patient not expected to survive 24 hrs. (ruptured aneurysm) ASA 6: a declared brain- patient whose organs are being harvested. For emergent operations, add the letter E after the classification Mallampati Classification Grade 3 Sedation Plan Analgesia, Amnesia, Plan communicated to team members, Discussed options with patient/fam, Discussed risks with patient/fam The patient is an appropriate candidate to undergo the planned procedure, sedation, and anesthesia. The patient immediately re-assessed prior to indication. BERNARDA RODRIGUEZ MD February 17, 2021 07:41
[2021-02-17] MEDS ORDERED: MIDAZOLAM 2 MG/2 ML (VERSED) VIAL ONE (07:53)
--- NOTE | 2021-02-17 08:23 | Cardioversion ---
Cardioversion PROCEDURE PHYSICIAN: Bernarda Poole DATE OF PROCEDURE: 02/17/21 DIRECT EXTERNAL ELECTRICAL CARDIOVERSION: Indications: Atrial Fibrillation Preoperative diagnoses: Atrial Fibrillation Postoperative diagnosis: Sinus rhythm, Successful Electrical Cardioversion Anesthesia: By Anesthesia services Complications: None Specimen: None Contrast: 0 Flouroscopy: none Procedure Details: The patient was brought the seed analysis laboratory assistant after informed consent was taken, all the risks and complications were explained including the risk of stroke. Electrical cardioversion was carried out with anesthesia support with propofol. 200 joules of synchronized shock was delivered through external patches which promptly re stored sinus rhythm. The patient tolerated the procedure well. Conclusions: Successful electrical cardioversion with no complication Final Diagnosis: Paroxysmal atrial fibrillation Shortness of breath Hypertension Hyperlipidemia BERNARDA POOLE MD February 17, 2021 08:23
[2021-02-17] MEDS ORDERED: AMIO200T6 PO (08:52)
--- NOTE | 2021-02-17 08:52 | Discharge Inst-Post CATH ---
Discharge Inst-CATH/EP Problems Reviewed?: Yes Post Cardiac Cath/EP D/C Inst Follow Up/Plan Appointment with Dr. Poole's office in 2 to 4 weeks <b>CARDIAC CATH/EP PROCEDURE DISCHARGE INSTRUCTIONS</b> ACTIVITY * Go Home directly and rest. * Limit activity of the leg (or wrist if it was used) for 7 days including aer obics, swimming, jogging, bicycling, etc. * Restrict stair-climbing for 7 days if possible, if not, climb up with your non-cath leg, then bring together on the same step. * Avoid lifting, pushing, pulling or excessive movement of the affected extremi ty for 7 days. * Customary sexual activity may be resumed after 2 days-use caution not to use a position that strains or causes pain to the affected extremity. * No driving for 24 hours. * NO SMOKING. * Avoid straining for bowel movements for 7 days. * Gentle walking on level ground is allowed. * Returning to work will depend on the type of procedure and the results. Your doctor will discuss this with you. CALL YOUR DOCTOR FOR ANY OF THE FOLLOWING: *If bleeding from the puncture site occurs- Apply gentle pressure to site with clean cloth and call your doctor or EMS. * If a knot or lump forms under the skin, increases in size, or causes pain. * If bruising appears to be worsening or moving further down your leg instead of disappearing. * Temperature above 101 F. CARE OF YOUR GROIN INCISION; * Bruising or purple discoloration of the skin near the puncture site is common. * You may shower only, no bathtub bathing for 5 days. Be careful to avoid slipping as your leg may feel stiff. * If a closure device was used on your femoral artery, please see the attached guide regarding care of the device and your leg. * Leave dressing on FOR 24 hours. CARE OF YOUR WRIST INCISION; * Bruising or purple discoloration of the skin near the puncture site is common. * You may shower. * DO NOT submerge wrist. * Leave dressing on FOR 24 hours. BERNARDA POOLE MD February 17, 2021 08:52
[2021-02-17] MEDS ORDERED: NON-FORMULARY MEDICATION 1 EA EA (Indapamide 1.25 MG) PO SCH (09:00)
[2021-02-17] MEDS ORDERED: ASPIRIN E.C. 81 MG (ECOTRIN) TAB PO SCH (09:00)
[2021-02-17] MEDS ORDERED: [UNRECOGNIZED DRUG - OTHER] PO SCH (09:00)
[2021-02-17] MEDS ORDERED: OMEGA PO SCH (09:00)
[2021-02-17] MEDS ORDERED: EPA PO SCH (09:00)
[2021-02-17] MEDS ORDERED: NON-FORMULARY MEDICATION 1 EA EA (Pantoprazole Sodium (Protonix) 40 MG) PO SCH (09:00)
[2021-02-17] MEDS ORDERED: FISH OIL PO SCH (09:00)
[2021-02-17] MEDS ORDERED: ENALAPRIL 5 MG (VASOTEC) TAB PO SCH (09:00)
[2021-02-17] MEDS ORDERED: PANTOPRAZOLE 40 MG (PROTONIX) TAB PO SCH (09:00)
[2021-02-17] MEDS ORDERED: DHA PO SCH (09:00)
[2021-02-17] MEDS ORDERED: CLOPIDOGREL 75 MG (PLAVIX) TABLET PO SCH (09:00)
[2021-02-17] MEDS ORDERED: INDAPAMIDE 2.5 MG (LOZOL) TAB PO SCH (09:00)
[2021-02-17] MEDS ORDERED: OMEGA 3 (FISH OIL) 1000 MG CAP PO SCH (09:00)
[2021-02-17] MEDS ORDERED: DILT180C54 PO (10:14)
[2021-02-17] MEDS ORDERED: EVOL140P3 IJ (10:14)
[2021-02-17] MEDS ORDERED: ASPI-1238 PO (10:14)
[2021-02-17] MEDS ORDERED: GABA300C PO (10:14)
[2021-02-17] MEDS ORDERED: LEVO100T7 PO (10:14)
[2021-02-17] MEDS ORDERED: PANT40TA52 PO (10:15)
[2021-02-17] MEDS ORDERED: CLOP75TA69 PO (10:15)
[2021-02-17] MEDS: APIXABAN 5 MG (ELIQUIS) TABLET PO SCH (10:44)
[2021-02-17] MEDS: AMIODARONE 200 MG (CORDARONE) TAB PO SCH (10:45)
== END 2021-02-18 08:24 | disposition home or self-care (01) ==
LOC: CATH 18:18 → ICU 18:18 → UNDODISOB 02-18 08:24 → CATH 02-18 08:24
PROVIDERS: ATTEND Internal Medicine Cardiovascular Disease
DX: I48.0 Paroxysmal atrial fibrillation (principal); E78.5 Hyperlipidemia, unspecified; I34.0 Nonrheumatic mitral (valve) insufficiency; I25.10 Atherosclerotic heart disease of native coronary artery without angina pectoris; I11.9 Hypertensive heart disease without heart failure; I65.23 Occlusion and stenosis of bilateral carotid arteries; E03.9 Hypothyroidism, unspecified; K21.9 Gastro-esophageal reflux disease without esophagitis; I49.1 Atrial premature depolarization; E66.01 Morbid (severe) obesity due to excess calories; Z68.35 Body mass index [BMI] 35.0-35.9, adult; Z88.0 Allergy status to penicillin; Z79.01 Long term (current) use of anticoagulants; Z79.82 Long term (current) use of aspirin; Z79.899 Other long term (current) drug therapy; Z79.890 Hormone replacement therapy; Z88.2 Allergy status to sulfonamides
CPT/HCPCS: 80048; 80053; 83735 ×2; 84100; 84443; 85025; 85027; 85610; 85730; 87081; 93005; 93306; 93312; 93320; G0378; G0379; 36415; 99211

== ENCOUNTER → 2021-03-18 | Day surgery (SDC) | payer MEDICARE, BC ==
[~2021-03-18] VITALS: Ht 162.6 cm; Wt 89.4 kg
[~2021-03-18] MED LIST changes: +AMIO200T6 PO; -AMIODARONE INJECTION 150 MG in D5W 100 ML IVPB 100 ML IV NR; -CATHETER FLUSH 10 ML SYR IV PRN; +CHOL500050 PO; +CLOP75TA69 PO; +DILT180C54 PO; +EVOL140P3 IJ; +GABA300C PO; +LEVO100T7 PO; +LIDOCAINE 1% INJ 20 ML 20 ML VIAL INJ ONE; +LIDOCAINE 1% INJ 20 ML 20 ML VIAL ONE; +PANT40TA52 PO
[2021-03-18 09:31] VITALS: BP 136/89
--- NOTE | 2021-03-18 11:31 | Implantation of Loop Monitor ---
Implant of Loop Monitior IMPLANTATION OF LOOP MONITOR REPORT DATE OF PROCEDURE: 03/18/21 PREOP DIAGNOSIS: Paroxysmal atrial fibrillation POSTOP DIAGNOSIS: Paroxysmal atrial fibrillation PROCEDURE DETAILS: The patient is a 70 female with history of paroxysmal atrial fibrillation requiring long-term surveillance. Therefore implantable loop recorder was discussed and agreed with the patient. Informed consent was taken. All risks and complications were discussed at length. The patient was draped and prepped in the usual sterile fashion. Local anesthesia was lidocaine, which was given in the substernal area close to the 4th intercostal space. Loop monitor [employer] with serial number [id number] was implanted according to the protocol. Steri- Strips were placed at the end of the procedure. There were no complications and the patient tolerated the procedure well. The device was interrogated with a voltage of. ANESTHESIA: Local anesthesia with lidocaine. COMPLICATIONS: None CONTRAST/FLUOROSCOPY: None CONCLUSION: Successful implantation of loop monitor FINAL DIAGNOSIS: Paroxysmal atrial fibrillation Hypertension Hyperlipidemia BERNARDA RODRIGUEZ MD Mar 18, 2021 11:31 am
== END ==
LOC: CATH 09:04
PROVIDERS: ATTEND Internal Medicine Cardiovascular Disease
DX: I48.0 Paroxysmal atrial fibrillation (principal); I25.10 Atherosclerotic heart disease of native coronary artery without angina pectoris; I65.23 Occlusion and stenosis of bilateral carotid arteries; I10 Essential (primary) hypertension; E78.2 Mixed hyperlipidemia; E03.9 Hypothyroidism, unspecified; Z79.01 Long term (current) use of anticoagulants; Z79.899 Other long term (current) drug therapy
CPT/HCPCS: 33285; C1764

== ENCOUNTER 2021-05-19 07:07 | Outpatient (CLI) | payer MEDICARE, BC ==
[~2021-05-19] VITALS: Ht 162.6 cm; Wt 87.2 kg
[~2021-05-19 07:07] MED LIST changes: -LIDOCAINE 1% INJ 20 ML 20 ML VIAL INJ ONE; -LIDOCAINE 1% INJ 20 ML 20 ML VIAL ONE
[2021-05-19] MEDS ORDERED: DRON400T6 PO (13:53)
[2021-05-19] MEDS ORDERED: L.AC1CAP6 PO (13:53)
== END 2021-05-19 15:42 | disposition home or self-care (01) ==
LOC: PREOP 07:07
PROVIDERS: ATTEND Internal Medicine
DX: Z01.818 Encounter for other preprocedural examination (principal)

== ENCOUNTER 2021-05-22 08:43 | Day surgery (SDC) | payer MEDICARE, BC ==
--- NOTE | 2021-05-18 23:57 | HISTORY AND PHYSICAL ---
DATE OF SERVICE: COLONOSCOPY HISTORY AND PHYSICAL HISTORY OF PRESENT ILLNESS: The patient is a 70-year-old white female reporting recent onset bowel habit change. She has been having to strain to pass stool, but has not been hard. She has been having some intermittent abdominal distention with this. I last performed colonoscopy on her in 2013. She did have [id number] diverticular disease. She reports no dietary change and no recent medication changes. She has noticed no bright red blood per rectum or melena. She has had no night sweats, chills or fever. Energy level has been at her baseline. PAST MEDICAL HISTORY: Significant for type 2 diabetes. She has history of Diamond's thyroiditis, hypertension, hyperlipidemia with no known history of coronary artery disease. FAMILY HISTORY: She is not aware of any family history for colon cancer. PAST SURGICAL HISTORY: Significant for total abdominal hysterectomy for benign reasons, laparoscopic cholecystectomy in the past, bunionectomy over 10 years ago. SOCIAL HISTORY: She is retired with no significant past smoking or drinking history. REVIEW OF SYSTEMS: CONSTITUTIONAL: Denies night sweats, chills, fever, change in weight. GASTROINTESTINAL: As noted in the HPI. PULMONARY: Reports stable dyspnea on exertion. No cough or wheezing. CARDIOVASCULAR: Denies chest pain, orthopnea, PND, pedal edema, syncope or presyncope. PHYSICAL EXAMINATION: GENERAL: Reveals pleasant elderly white female who did not appear to be in acute distress. VITAL SIGNS: Weight 192 pounds and actually down 24 pounds from when I last saw her in the office in 07/2014. Blood pressure 130/84. CHEST: Clear. CARDIOVASCULAR: Revealed a regular rate and rhythm without significant murmur, S3 or S4. ABDOMEN: Soft, supple. She has some fullness and discomfort in the left lower quadrant of the abdomen. Elsewhere no abdominal pain was noted. No organomegaly was noted. No bruits were appreciated. EXTREMITIES: Reveal no cyanosis, clubbing or edema. ASSESSMENT AND PLAN: For evaluation of left lower quadrant abdominal pain, abnormal physical examination and change in bowel habits, the patient is being set up for diagnostic colonoscopy. Job ID: [id number] DocumentID: [id number] Dictated Date: 05/14/2021 17:54:23 Rawhide Bone Roller Date: 05/14/2021 18:24:37 Dictated By: DONNA HILL MD
[~2021-05-22] VITALS: Ht 162.6 cm; Wt 87.2 kg
[~2021-05-22 08:43] MED LIST changes: +DRON400T6 PO; +L.AC1CAP6 PO
[2021-05-22] MEDS ORDERED: LACTATED RINGERS 1,000 ML IV ONE (08:50)
[2021-05-22] MEDS ORDERED: LACTATED RINGERS 1,000 ML IV STA (09:11)
[2021-05-22] MEDS ORDERED: LIDOCAINE JELLY 2% 6 ML SYRINGE MM PRN (09:15)
[2021-05-22 09:28] VITALS: BP 150/65
--- NOTE | 2021-05-22 09:46 | Pre-Op Note & Conscious Sedat ---
Pre-Operative Progress Note H&P Reviewed The H&P was reviewed, patient examined and no changes noted. Date H&P Reviewed: May 22, 2021 Time H&P Reviewed: 09:45 Conscious Sedation Pre-Proced ASA Score 2 For ASA 3 and 4: Consider anesthesia and medical clearance. Also, for patients with a history of failed moderate sedation consider anesthesia. Airway Lungs Heart ASA score ASA 1: a normal healthy patient ASA 2: a patient with a mild systemic disease (mid diabetes, controlled hypertension, obesity ASA 3: a patient with a severe systemic disease that limits activity (angina, COPD, prior Myocardial infarction) ASA 4: a patient with an incapacitating disease that is a constant threat to life (CHF, renal failure) ASA 5: a moribund patient not expected to survive 24 hrs. (ruptured aneurysm) ASA 6: a declared brain- patient whose organs are being harvested. For emergent operations, add the letter E after the classification Mallampati Classification Grade 2 Sedation Plan Analgesia, Amnesia, Plan communicated to team members, Discussed options with patient/fam, Discussed risks with patient/fam The patient is an appropriate candidate to undergo the planned procedure, sedation, and anesthesia. The patient immediately re-assessed prior to indication. DONNA HILL MD May 22, 2021 09:45
[2021-05-22] MEDS ORDERED: PROPOFOL INJECTION 50 ML IV ONE (10:33)
[2021-05-22] MEDS ORDERED: MIDAZOLAM 2 MG/2 ML (VERSED) VIAL ONE (10:33)
[2021-05-22] MEDS ORDERED: GLYCOPYRROLATE 0.2 MG/ML (ROBINUL) 2 ML VIAL ONE (10:35)
[2021-05-22 11:05] VITALS: BP 97/57
--- NOTE | 2021-05-22 11:06 | Anesthesia-General Post-Op ---
MAC Patient Condition Mental Status/LOC: Same as Preop Cardiovascular: Satisfactory Nausea/Vomiting: Absent Respiratory: Satisfactory Pain: Controlled Complications: Absent Post Op Complications Complications None Follow Up Care/Instructions Patient Instructions None needed. Anesthesiology Discharge Order Discharge Order Patient is doing well, no complaints, stable vital signs, no apparent adverse anesthesia problems. No complications reported per nursing. MITALI ESPITIA CRNA May 22, 2021 11:06
[2021-05-22 11:10] VITALS: BP 98/59
[2021-05-22 11:15] VITALS: BP_SYST 103; BP_SYST 112; BP_DIAS 59; BP_DIAS 62
[2021-05-22 11:38] VITALS: BP 126/72
[2021-05-22 11:44] VITALS: BP 126/72
--- NOTE | 2021-05-22 20:58 | OPERATIVE REPORT ---
DATE OF SERVICE: COLONOSCOPY SUMMARY REASON FOR COLONOSCOPY: colonoscopy was performed for evaluation of constipation and family history for colon cancer. DESCRIPTION OF PROCEDURE: The patient was placed in the left lateral decubitus position. Prior to undergoing colonoscopy, digital rectal evaluation was performed. Anal sphincter tone was normal and the perianal reflexes intact. No abnormalities were noted on digital inspection of anal canal or distal rectal vault except for findings compatible with an anterior rectocele. No stool was noted. The colonoscope was then inserted into the rectum and under direct visualization advanced to the cecum. The cecum was identified by identification of the ileocecal valve and cecal strap. Photographic documentation was obtained. Careful inspection was made as colonoscope was withdrawn. Quality of prep was good. FINDINGS: There was no evidence for internal or external hemorrhoids and the rectum was unremarkable except for one 6 mm diminutive hyperplastic-appearing polyp. It was photographed and biopsied and ablated with no subsequent blood loss. The patient had mild to moderate diverticular disease confined to the sigmoid colon without evidence for diverticulitis. No other sigmoid colonic abnormalities were appreciated. The descending colon, splenic flexure and transverse colon were unremarkable. Present at the hepatic flexure was approximately 1.5 cm pedunculated polyp with multiple small areas of ulceration. It was snared at the base without difficulty and ligated with no subsequent blood loss. The ascending colon and cecum were unremarkable. ASSESSMENT: 1. Two polyps were removed today, the larger and more concerning at the hepatic flexure via snare. We will await histopathology report before making recommendations for future surveillance colonoscopy. 2. Mild to moderate diverticular disease confined to the sigmoid colon was present without evidence for diverticulitis. 3. Prior to anesthesia and the procedure, the patient's heart rate was in the 40s. She was asymptomatic with this, but considering this and constipation, I advised her to hold her diltiazem. She was advised to resume Plavix on Tuesday and aspirin and Eliquis next Tuesday. She was also given written instructions with her discharge medication list to discuss with her mold unloader, who she will be seeing in several weeks. Thank you for the referral of this pleasant lady. Job ID: [id number] DocumentID: [id number] Dictated Date: 05/22/2021 12:11:04 End Worker Date: 05/22/2021 20:57:24 Dictated By: DONNA HILL MD [facility]
== END 2021-05-22 11:52 | disposition home or self-care (01) ==
LOC: ENDO 08:43
PROVIDERS: ATTEND Internal Medicine
DX: K63.5 Polyp of colon (principal); D12.8 Benign neoplasm of rectum; K57.30 Diverticulosis of large intestine without perforation or abscess without bleeding; I10 Essential (primary) hypertension; I25.10 Atherosclerotic heart disease of native coronary artery without angina pectoris; F32.9 Major depressive disorder, single episode, unspecified; E11.9 Type 2 diabetes mellitus without complications; M19.90 Unspecified osteoarthritis, unspecified site; E06.3 Autoimmune thyroiditis; E78.5 Hyperlipidemia, unspecified; Z79.899 Other long term (current) drug therapy; Z80.0 Family history of malignant neoplasm of digestive organs

== ENCOUNTER → 2021-07-13 | Outpatient (CLI) | payer MEDICARE, BC ==
--- NOTE | 2021-07-13 09:58 | Diagnostic Imaging Report ---
Indication: Routine screening. Comparison is made with prior mammogram 08/14/2018 and 05/19/2017. 2-D and 3-D bilateral screening mammography was performed with CAD. Scattered fibroglandular densities are identified bilaterally. There are benign calcifications bilaterally. Cardiac monitoring device overlies the left upper breast. No mass or malignant appearing microcalcifications are seen. Axillae are unremarkable. IMPRESSION: BI-RADS Category 2 No mammographic features suspicious for malignancy are identified. ACR BI-RADS Category 2: Benign findings. Result letter will be mailed to the patient. Note: At least 10% of breast cancer is not imaged by mammography. Dictated by: Dictated on workstation # [id number]
== END ==
LOC: RAD 08:43
PROVIDERS: ATTEND Nurse Practitioner Family
DX: Z12.31 Encounter for screening mammogram for malignant neoplasm of breast (principal)
CPT/HCPCS: 77063; 77067

== ENCOUNTER → 2021-09-24 | Outpatient (CLI) | payer MEDICARE, BC ==
[~2021-09-24] MED LIST changes: -AMIO200T6 PO; +AMIO200T65 PO
== END ==
LOC: CARD 09:30
PROVIDERS: ATTEND Internal Medicine Cardiovascular Disease
DX: I11.9 Hypertensive heart disease without heart failure (principal); I34.0 Nonrheumatic mitral (valve) insufficiency
CPT/HCPCS: 93306

== ENCOUNTER 2022-06-30 05:35 | Outpatient (CLI) | payer MEDICARE, BC ==
[~2022-06-30] VITALS: Ht 162.6 cm; Wt 85.9 kg
[2022-07-01] MEDS ORDERED: LISI20TA26 PO (10:07)
== END 2022-07-01 10:34 | disposition home or self-care (01) ==
LOC: PREOP 05:35
PROVIDERS: ATTEND Internal Medicine
DX: Z01.818 Encounter for other preprocedural examination (principal)

== ENCOUNTER 2022-07-30 07:09 | Day surgery (SDC) | payer MEDICARE, BC ==
--- NOTE | 2022-06-30 07:58 | HISTORY AND PHYSICAL ---
DATE OF SERVICE: COLONOSCOPY HISTORY AND PHYSICAL HISTORY OF PRESENT ILLNESS: The patient is a 71-year-old white female here for diagnostic colonoscopy. She had undergone colonoscopy one year ago, had a large pedunculated inflammatory polyp removed from the hepatic flexure as well as a serrated sessile polyp removed from the mid rectum. She reports that she underwent successful ablation in the interum and is now off of Eliquis. Since she was diagnosed with COVID earlier this year she has had a fair number of GI symptoms initially diarrhea, which is for the most part resolved now. She still has more flatulence than she used to, but has had no blood melena or pain. She has a history of coronary artery disease with one stent placed number of years ago and nothing in the past several years. PAST MEDICAL HISTORY: Diabetes type 2, Diamond's thyroiditis and hyperlipidemia as well as hypertension. She has had no interval surgery, only ablation for atrial fibrillation, which has apparently been successful. PHYSICAL EXAMINATION: GENERAL: Reveals a white female appeared to be in no acute distress. VITAL SIGNS: Blood pressure 130/70, weight 189.2 pounds. HEENT: Unremarkable. Sclerae nonicteric. CHEST: Clear to auscultation. CARDIOVASCULAR: Reveals a regular rate and rhythm. Soft 1 to 2/6 systolic ejection murmur heard best at left lower sternal border without evidence of pulsus, parvus or tardus. No S3 or S4 noted. ABDOMEN: Soft, supple without mass, organomegaly or tenderness. EXTREMITIES: Reveal no cyanosis, clubbing or edema. ASSESSMENT AND PLAN: The patient has been set up for diagnostic colonoscopy due to past polyp history, see HPI. If there are no significant abnormalities noted on upcoming colonoscopy with no evidence for recurrence or new significant neoplasia will not likely advocate future surveillance colonoscopy. The patient was set up for procedure on 07/09/2022, will take her last dose of aspirin and Plavix after the with written instructions. Job ID: [id number] DocumentID: [id number] Dictated Date: 06/09/2022 10:40:18 Door And Arrival Attendant Date: 06/09/2022 11:49:28 Dictated By: DONNA HILL MD [facility]
--- NOTE | 2022-07-19 15:44 | HISTORY AND PHYSICAL ---
DATE OF SERVICE: ADDENDUM The patient rescheduled for colonoscopy and this is an addendum report. She was originally seen on 06/17/2022 and is being set up for a surveillance colonoscopy. She had a large pedunculated polyp removed from the hepatic flexure as well as a serrated sessile polyp removed from the mid rectum. She reports no interval change in health history. She has successful ablation for atrial fibrillation. She is now off of Eliquis. She has had no chest pain, palpitations, abdominal pain or bright red blood per rectum. No interval changes since her last visit on the . PHYSICAL EXAMINATION: VITAL SIGNS: Blood pressure 130/70. CHEST: Clear. CARDIOVASCULAR: Reveals a regular rate and rhythm. Soft 1 to 2/6 systolic ejection murmur unchanged at the left lower sternal border. No S3 or S4. ASSESSMENT AND PLAN: The patient is being set up for surveillance colonoscopy due to past history of colon polyps, see above. She has prep instructions, voiced understanding and will proceed with protocol with colonoscopy set up for the 08/01/2022. Job ID: [id number] DocumentID: [id number] Dictated Date: 07/19/2022 14:48:35 Machine Leather Trimmer Date: 07/19/2022 15:04:57 Dictated By: DONNA HILL MD
[~2022-07-30] VITALS: Ht 162.6 cm; Wt 85.9 kg
[~2022-07-30 07:09] MED LIST changes: +LISI20TA26 PO
[2022-07-30] MEDS ORDERED: LACTATED RINGERS 1,000 ML IV STA (07:13)
[2022-07-30 07:32] VITALS: BP 149/75
[2022-07-30] MEDS ORDERED: PROPOFOL INJECTION 50 ML IV ONE (07:41)
--- NOTE | 2022-07-30 07:56 | Pre-Op Note & Conscious Sedat ---
Pre-Operative Progress Note Date H&P Reviewed: Jul 30, 2022 Time H&P Reviewed: 07:45 History & Physical: H&P Reviewed, Patient Examed, No changes noted Pre-Op Diagnosis: hx of coon polyps Conscious Sedation Pre-Proced ASA Score 2 For ASA 3 and 4: Consider anesthesia and medical clearance. Also, for patients with a history of failed moderate sedation consider anesthesia. Airway Lungs Heart ASA score ASA 1: a normal healthy patient ASA 2: a patient with a mild systemic disease (mid diabetes, controlled hypertension, obesity ASA 3: a patient with a severe systemic disease that limits activity (angina, COPD, prior Myocardial infarction) ASA 4: a patient with an incapacitating disease that is a constant threat to life (CHF, renal failure) ASA 5: a moribund patient not expected to survive 24 hrs. (ruptured aneurysm) ASA 6: a declared brain- patient whose organs are being harvested. For emergent operations, add the letter E after the classification Mallampati Classification Grade 2 Sedation Plan Analgesia, Amnesia, Plan communicated to team members, Discussed options with patient/fam, Discussed risks with patient/fam The patient is an appropriate candidate to undergo the planned procedure, sedation, and anesthesia. The patient immediately re-assessed prior to indication. DONNA HILL MD Jul 30, 2022 07:56
[2022-07-30 08:25] VITALS: BP 93/50
--- NOTE | 2022-07-30 08:29 | Progress Note-Post Operative ---
Post-Procedure Note Physician (s)/Pool Table Operator (s) Physician DONNA HILL MD Pre-Procedure Diagnosis Pre-Procedure Diagnosis: hx of coon polyps Post-Procedure Note Findings/Procedure Note The patient was placed in the left lateral decubitus position. Prior to undergoing colonoscopy digital rectal evaluation was performed. Anal central tone was normal and the perianal reflexes intact. No abnormalities noted visual specks in anal canal or distal rectal vault. The colonoscope was inserted into the rectum and under direct visualization advanced to the cecum. The cecum was identified by identification of the cecal valve and the appendiceal orifice. Photographic documentation was obtained. A careful inspection was made as the colonoscope was withdrawn. Quality prep was good. Findings: There are no evidence for internal or external hemorrhoids and the rectum was unremarkable. There was no evidence for previous serrated polyp removed from the mid rectum a year ago. The remainder the rectum was normal. The sigmoid colon was compatible with moderate diverticular disease without evidence of diverticulitis with no other abnormalities being appreciated. The descending colon and splenic flexure transverse colon hepatic flexure and ascending colon were unremarkable. A 5 mm sessile polyp adjacent the appendix was present it was then biopsied and ablated without significant blood loss. A/P 1. 1 5 mm sessile polyp was removed via hot forceps from the cecumThe patient was placed in the left lateral decubitus position. considering patient age and medical comorbidities will not recommend future surveillance colonoscopy. 2. Again noted was moderate diverticular disease confined to the sigmoid colon. there was no evidence for previously removed serrated adenoma from the mid rectum. Post-Procedure Diagnosis Post-operative diagnosis: colon polyp DONNA HILL MD Jul 30, 2022 08:28
[2022-07-30 08:30] VITALS: BP 95/53
[2022-07-30 08:45] VITALS: BP 126/68
[2022-07-30 09:03] VITALS: BP 126/68
--- NOTE | 2022-07-30 10:13 | Anesthesia-General Post-Op ---
MAC Patient Condition Mental Status/LOC: Same as Preop Cardiovascular: Satisfactory Nausea/Vomiting: Absent Respiratory: Satisfactory Pain: Controlled Complications: Absent Post Op Complications Complications None Follow Up Care/Instructions Patient Instructions None needed. Anesthesiology Discharge Order Discharge Order Patient is doing well, no complaints, stable vital signs, no apparent adverse anesthesia problems. No complications reported per nursing. LORI WORTHY CRNA Jul 30, 2022 10:13
== END 2022-07-30 09:49 | disposition home or self-care (01) ==
LOC: ENDO 07:09
PROVIDERS: ATTEND Internal Medicine
DX: Z12.11 Encounter for screening for malignant neoplasm of colon (principal); D12.0 Benign neoplasm of cecum; K57.30 Diverticulosis of large intestine without perforation or abscess without bleeding; Z86.16 Personal history of COVID-19

== ENCOUNTER → 2022-08-11 | Outpatient (CLI) | payer MEDICARE, BC ==
--- NOTE | 2022-08-11 13:45 | Diagnostic Imaging Report ---
INDICATION: Routine screening. COMPARISON: 07/13/2021 and 08/14/2018. TECHNIQUE: 2D and 3D bilateral screening mammography was performed with CAD. FINDINGS: Scattered fibroglandular densities are identified bilaterally. A cardiac loop recorder overlies the left axilla. The overall parenchymal pattern is stable. There are benign calcifications bilaterally. No mass or malignant-appearing microcalcifications are seen. The axillae are unremarkable. IMPRESSION: No mammographic features suspicious for malignancy are identified. ACR BI-RADS Category 2: Benign findings. Result letter will be mailed to the patient. Note: At least 10% of breast cancer is not imaged by mammography. Dictated by: Dictated on workstation # [id number]
== END ==
LOC: RAD 10:21
PROVIDERS: ATTEND Nurse Practitioner Family
DX: Z12.31 Encounter for screening mammogram for malignant neoplasm of breast (principal)
CPT/HCPCS: 77063; 77067

== ENCOUNTER → 2022-09-10 | Outpatient (CLI) | payer MEDICARE, BC ==
[~2022-09-10] MED LIST changes: +CLOP-31 PO; -CLOP75TA69 PO
--- NOTE | 2022-09-10 10:55 | Diagnostic Imaging Report ---
PROCEDURE: CT abdomen and pelvis without contrast. TECHNIQUE: Multiple contiguous axial images were obtained through the abdomen and pelvis without the use of intravenous contrast. Auto Exposure Controls were utilized during the CT exam to meet ALARA standards for radiation dose reduction. INDICATION: Diarrhea and weight loss. No prior studies are available for comparison. FINDINGS: The lung bases are clear. The liver is unremarkable. Gallbladder appears to be surgically absent. There is no biliary ductal dilatation. Pancreas and spleen are unremarkable. No adrenal mass is identified. Kidneys are unremarkable apart from cortical low-attenuation lesions, likely cysts. Largest is in the left kidney measuring approximately 21 mm in size. Aorta is calcified but nonaneurysmal. The bowel loops are normal caliber. There is no obstruction. There is diverticulosis of the descending and sigmoid colon but no evidence of acute diverticulitis. Bladder is decompressed. Uterus appears to be surgically absent. There is no ascites. There is no adenopathy within the abdomen or pelvis. No inflammatory changes are seen. There is a small fat-containing umbilical hernia. IMPRESSION: 1. Bilateral renal cysts. 2. Uncomplicated diverticulosis. 3. Fat-containing umbilical hernia. 4. No acute feature is identified. Dictated by: Dictated on workstation # [id number]
== END ==
LOC: RAD 09:45
PROVIDERS: ATTEND Nurse Practitioner Family
DX: N28.1 Cyst of kidney, acquired (principal); K57.30 Diverticulosis of large intestine without perforation or abscess without bleeding; K42.9 Umbilical hernia without obstruction or gangrene
CPT/HCPCS: 74176

== ENCOUNTER → 2023-08-15 | Outpatient (CLI) | payer MEDICARE, BC ==
[~2023-08-15] MED LIST changes: +ENAL-66 PO; -ENLP5T PO
--- NOTE | 2023-08-15 09:46 | Diagnostic Imaging Report ---
INDICATION: Routine screening. Comparison is made with prior mammogram from 08/11/2022 and 07/13/2021. 2-D and 3-D bilateral screening mammography was performed with CAD. Both breasts are heterogeneously dense, limiting the sensitivity of mammography. Cardiac loop recorder overlies the upper left breast. There are scattered benign calcifications bilaterally. No mass or malignant-appearing microcalcifications are identified. Axillae are unremarkable. IMPRESSION: No mammographic features suspicious for malignancy are identified. ACR BI-RADS Category 2: Benign findings. Result letter will be mailed to the patient. Note: At least 10% of breast cancer is not imaged by mammography. BI-RADS Category 2 Dictated by: Dictated on workstation # [id number]
== END ==
LOC: RAD 08:12
PROVIDERS: ATTEND Nurse Practitioner Family
DX: Z12.31 Encounter for screening mammogram for malignant neoplasm of breast (principal)
CPT/HCPCS: 77063; 77067